=== PATIENT | female | born 1975 | race Caucasian/White ===

== ENCOUNTER 2020-04-04 13:01 | Outpatient (REF) | payer OTHER, SELFPAY ==
--- NOTE | 2020-04-04 13:14 | XR_ITS ---
EXAMINATION: XR LUMBOSACRAL SPINE CLINICAL INFORMATION: Low back pain COMPARISON: None TECHNIQUE: Three views of the lumbosacral spine. FINDINGS: There is normal segmentation with 5 nonrib-bearing vertebrae. There is exaggerated lumbar lordosis on lateral view. There is no lumbar vertebral compression, spondylolisthesis, retrolisthesis. No destructive process or focal lumbar disc narrowing. There are anterior bridging osteophytes L2-L5. There are degenerative disc changes lower thoracic spine with probable vertebral disc fusion at T10-T11. There is an IUD present as well as a stimulator device extending through right sacral foramen. Scattered artifacts overlie the abdomen and pelvis likely buttons or clips from patient's clothing. XR/XR lumbar spine 2-3V IMPRESSION: 1. Exaggerated lumbar lordosis. Multilevel bridging anterior osteophytes. 2. No vertebral compression, spondylolisthesis, or focal disc narrowing. 3. Degenerative disc changes lower thoracic spine.
== END 2020-04-04 13:02 | disposition home or self-care (01) ==
LOC: HO.XRAY 13:01
PROVIDERS: PCP Physician Assistant; Visit Provider Physician Assistant
DX: M54.5 Low back pain (principal)
CPT/HCPCS: 72100

== ENCOUNTER 2020-04-10 15:15 | Emergency (ER) | payer OTHER, SELFPAY ==
[2020-04-10 15:48] VITALS: BP 112/62; BP 126/65; PULSE 93; PULSE 94; RESP 16; TEMP 37.1; O2SAT 96; O2SAT 99; BMI 48.2
--- NOTE | 2020-04-10 16:16 | ED_ITS ---
HPI - Back Pain/Injury General Chief Complaint: Back Pain/Injury Stated Complaint: back pain Time Seen by Provider: 04/10/20 16:13 History of Present Illness HPI Narrative: Present with history of cerebral palsy and chronic back pain and neuropathy complains of flare up of her back pain with pain worse with straightening and bending but comfortable resting in certain positions for past several days, she is taking Motrin without relief as well as a muscle relaxer that she has at home, but pain is not controlled, it does not radiate, no associated urinary symptoms, no fever, no changes to bowel or bladder Related Data Home Medications Medication Instructions Recorded Confirmed acetaminophen 650 mg 650 mg PO Q12H 02/08/20 04/04/20 tablet,extended release atorvastatin 40 mg tablet 40 mg PO DAILY 02/08/20 04/04/20 cholecalciferol (vitamin D3) 50 50 mcg PO DAILY 02/08/20 04/04/20 mcg (2,000 unit) tablet desmopressin 0.1 mg tablet 0.1 mg PO BID 02/08/20 04/04/20 famotidine 40 mg tablet 40 mg PO BEDTIME 02/08/20 04/04/20 levothyroxine 25 mcg tablet 37.5 mcg PO DAILY 02/08/20 04/04/20 mirabegron 25 mg tablet,extended 25 mg PO DAILY 02/08/20 04/04/20 release 24 hr omeprazole 40 mg capsule,delayed 40 mg PO DAILY 02/08/20 04/04/20 release quetiapine 200 mg tablet 200 mg PO DAILY 02/08/20 04/04/20 venlafaxine 75 mg tablet 75 mg PO BID 02/08/20 04/04/20 vitamin B complex 1 tab PO DAILY 02/08/20 04/04/20 zaleplon 5 mg capsule 5 mg PO BEDTIME PRN 02/08/20 04/04/20 Previous Rx's Medication Instructions Recorded quetiapine 50 mg tablet 50 mg PO DAILY #90 tab 01/24/20 docusate sodium 100 mg capsule 100 mg PO BID 30 Days #60 cap 02/08/20 doxepin 75 mg capsule 75 mg PO BID 30 Days #60 cap 02/29/20 furosemide 20 mg tablet 20 mg PO DAILY 7 Days #7 tab 03/06/20 sulfamethoxazole 800 1 tab PO BID 5 Days #10 tab 03/06/20 mg-trimethoprim 160 mg tablet cyclobenzaprine 10 mg tablet 10 mg PO TID PRN 30 Days #90 tab 03/08/20 tramadol 50 mg tablet 50 mg PO BID PRN 30 Days #60 tab 03/16/20 lidocaine 5 % topical cream 1 appl TOPICAL BID 14 Days #30 g 04/04/20 methocarbamol 750 mg tablet 750 mg PO TID PRN 7 Days #21 tab 04/04/20 naproxen 375 mg tablet,delayed 375 mg PO BID PRN 15 Days #30 tab 04/04/20 release pregabalin 200 mg capsule 200 mg PO BID 30 Days #60 cap 04/04/20 oxycodone-acetaminophen [Percocet] 1 tab PO Q6H PRN #14 tab 04/10/20 oxycodone-acetaminophen [Percocet] 1 tab PO Q6H PRN #14 tab 04/10/20 Allergies Allergy/AdvReac Type Severity Reaction Status Date / Time trazodone Allergy Unknown hives Verified 04/04/20 11:41 zolmitriptan [Zomig] Allergy Unknown hives Verified 04/04/20 11:41 zolpidem [Ambien] Allergy Unknown hives Verified 04/04/20 11:41 Review of Systems Review of Systems: Positive for positional back pain worse with movement negatives are no fever no chills no dizziness no confusion no headache no neck pain no chest pain no abdominal pain no numbness no weakness no paresthesias no radiation of pain no burning with urination or frequency of urination no incontinence no changes to bowel or bladder no rashes Yes all other systems are reviewed and are negative [facility] Past Medical History Attestation statement: The following information was validated with the patient. [facility] Narrative: Patient is disabled with cerebral palsy and a long history of episodes of back pain and chronic back pain She does have help at home with [employer] around the clock Medical History (Updated 04/10/20 @ 16:47 by YVES Soriano) Anxiety Cerebral palsy Depression Diabetes insipidus Surgical History No pertinent past surgical history Family History Family History Father No problems noted. Mother No problems noted. Social History Social History Advance Directives: No Advance Directives Information Provided: Yes Physical Exam Vital Signs: Vital Signs: Last Vital Signs Temp 98.5 F 04/10/20 18:04 Pulse 91 04/10/20 18:04 Resp 18 04/10/20 18:04 BP 129/72 04/10/20 18:04 Pulse Ox 97 04/10/20 18:04 Body Mass Index 48.2 General appearance is no acute distress, A&O x3, cooperative Head is normocephalic atraumatic The neck is supple and nontender The chest is clear to auscultation bilaterally with no tenderness to the chest wall, no respiratory distress The abdomen is soft nontender The back had bilateral paraspinal lumbar tenderness with no focal bony tenderness, no CVA tenderness, no rashes, no wounds to the skin no redness no warmth Patient could rest comfortably in a comfortable position but movement was painful Extremity exam was patient could move her legs and arms with good strength and sensation Skin no rash Course Course Course Narrative: Discussed with patient if she is able to take care of herself at home and she says she has continuous [employer] at home and feels confident with some pain relief that she will be able to get to the bathroom and do all her normal activities, she does not live alone Patient felt improved after treatment and was discharged Discharge Plan Discharge Clinical Impression: Back pain Qualifiers: Back pain location: low back pain Chronicity: acute Back pain laterality: bilateral Sciatica presence: without sciatica Qualified Code(s): M54.5 - Low back pain Patient Disposition: Home, Self-Care Additional Instructions: Follow with primary care doctor for physical therapy and further evaluation Return any time any worse condition or concerns Prescriptions: New oxycodone-acetaminophen [Percocet] 5-325 mg tablet 1 tab PO Q6H PRN (Reason: pain) Qty: 14 RF: 0 oxycodone-acetaminophen [Percocet] 5-325 mg tablet 1 tab PO Q6H PRN (Reason: pain) Qty: 14 RF: 0 No Action quetiapine 50 mg tablet 50 mg PO DAILY Qty: 90 RF: 1 doxepin 75 mg capsule 75 mg PO BID 30 Days Qty: 60 RF: 3 furosemide 20 mg tablet 20 mg PO DAILY 7 Days Qty: 7 RF: 0 sulfamethoxazole-trimethoprim [Bactrim DS] 800-160 mg tablet 1 tab PO BID 5 Days Qty: 10 RF: 0 cyclobenzaprine 10 mg tablet 10 mg PO TID PRN (Reason: muscle spasm) 30 Days Qty: 90 RF: 3 tramadol 50 mg tablet 50 mg PO BID PRN (Reason: pain) 30 Days Qty: 60 RF: 3 cholecalciferol (vitamin D3) [Vitamin D3] 50 mcg (2,000 unit) tablet 50 mcg PO DAILY RF: 0 quetiapine 200 mg tablet 200 mg PO DAILY RF: 0 acetaminophen [Mapap Arthritis Pain] 650 mg tablet extended release 650 mg PO Q12H RF: 0 venlafaxine 75 mg tablet 75 mg PO BID RF: 0 omeprazole 40 mg capsule,delayed release(DR/EC) 40 mg PO DAILY RF: 0 levothyroxine 25 mcg tablet 37.5 mcg PO DAILY RF: 0 atorvastatin 40 mg tablet 40 mg PO DAILY RF: 0 desmopressin 0.1 mg tablet 0.1 mg PO BID RF: 0 Myrbetriq 25 mg tablet extended release 24 hr 25 mg PO DAILY RF: 0 zaleplon 5 mg capsule 5 mg PO BEDTIME PRNRF: 0 vitamin B complex [B Complex-Vitamin B12] Tablet 1 tab PO DAILY RF: 0 famotidine 40 mg tablet 40 mg PO BEDTIME RF: 0 docusate sodium [Colace] 100 mg capsule 100 mg PO BID 30 Days Qty: 60 RF: 6 lidocaine 5 % cream 1 appl topical BID 14 Days Qty: 30 RF: 0 pregabalin 200 mg capsule 200 mg PO BID 30 Days Qty: 60 RF: 1 methocarbamol 750 mg tablet 750 mg PO TID PRN (Reason: pain (scale score 7-10)) 7 Days Qty: 21 RF: 0 naproxen [EC-Naproxen] 375 mg tablet,delayed release (DR/EC) 375 mg PO BID PRN (Reason: pain) 15 Days Qty: 30 RF: 0
[2020-04-10] MEDS: oxyCODONE HCl Immed Release 5 MG TABLET 10 MG PO (16:25)
[2020-04-10] MEDS: Ketorolac Tromethamine 30 MG/ML VIAL IM (16:25)
[2020-04-10] MEDS: HYDROmorphone HCl 0.5 MG/0.5 ML SYRINGE 0.25 MG IM (17:23)
[2020-04-10 18:04] VITALS: BP 129/72; PULSE 91; RESP 18; TEMP 36.9; O2SAT 97
--- NOTE | 2020-04-10 18:57 | PC.NURSE ---
Report received. PT is resting quietly in bed, no apparent distress. Ready for discharge, waiting for transport.
== END 2020-04-10 20:00 | disposition home or self-care (01) ==
PROVIDERS: Emergency Provider Emergency Medicine
DX: M54.5 Low back pain (principal); G80.9 Cerebral palsy, unspecified; E23.2 Diabetes insipidus
CPT/HCPCS: 96372; 99283; 99284; J1170; J1885

== ENCOUNTER → 2020-04-28 12:50 | Outpatient (BNVA) | payer OTHER, SELFPAY | PROVIDERS: PCP Physician Assistant; Visit Provider Nurse Practitioner Family | DX: G80.9 Cerebral palsy, unspecified (principal); R25.2 Cramp and spasm | CPT/HCPCS: 99202 ==

== ENCOUNTER 2020-10-11 11:12 | Outpatient (REF) | payer OTHER, SELFPAY ==
[2020-10-11 12:41] LABS: Estimated Average Glucose 108 mg/dL; Hemoglobin A1c % 5.4 %
[2020-10-11 13:24] LABS: Alanine Aminotransferase 19 U/L (0-31); Albumin Level 4.6 g/dL (3.5-5.0); Alkaline Phosphatase 103 U/L (39-117); Anion Gap 16 (12-20); Aspartate Amino Transferase 18 U/L (5-31); Bilirubin Total 0.3 mg/dL (0.0-1.0); Blood Urea Nitrogen 15 mg/dL (9-16); Carbon Dioxide 25 mmol/L (22-29); Chloride 104 mmol/L (96-108); Cholesterol 131 mg/dL; Estimated Glomerular Filt Rate > 60; Glucose Fasting 100 mg/dL (60-99); HDL Cholesterol 52 mg/dL; LDL Cholesterol Calculated 50 mg/dl; Potassium 4.1 mmol/L (3.3-5.1); Sodium 141 mmol/L (135-145); Total Protein 7.3 g/dL (6.5-8.0); Triglycerides 147 mg/dL
[2020-10-11 13:30] LABS: Calcium 10.4 mg/dL (8.4-10.2)
[2020-10-11 13:39] LABS: TSH reflex Free T4 0.91 uIU/mL (0.32-4.0)
== END 2020-10-11 11:13 | disposition home or self-care (01) ==
LOC: HO.LAB 11:12
PROVIDERS: PCP Physician Assistant; Visit Provider Physician Assistant
DX: Z13.1 Encounter for screening for diabetes mellitus (principal); E78.2 Mixed hyperlipidemia
CPT/HCPCS: 36415; 80053; 80061; 83036; 84443

== ENCOUNTER 2021-06-27 14:50 | Outpatient (REF) | payer OTHER, SELFPAY ==
[2021-06-27 15:05] LABS: MANUAL DIFF FLAG NO
--- NOTE | 2021-06-27 15:11 | ECG_ITS ---
Test Reason : CHEST PAIN Blood Pressure : / mmHG Vent. Rate : 086 BPM Atrial Rate : 086 BPM P-R Int : 134 ms QRS Dur : 078 ms QT Int : 352 ms P-R-T Axes : 039 013 002 degrees QTc Int : 421 ms Normal sinus rhythm Minimal voltage criteria for LVH, may be normal variant ( R in aVL ) Nonspecific T wave abnormality Abnormal ECG No previous ECGs available Referred By: Gay Patricio Electronically Signed By:MARLA SUMNER
[2021-06-27 15:38] LABS: Basophils Absolute Auto 0.1 X10*3/uL (0.0-0.2); Basophils Percent Auto 1.2 % (0-2); Eosinophils Absolute Auto 0.1 X10*3/uL (0.0-0.4); Eosinophils Percent Auto 1.6 % (0-4); Hematocrit 36.5 % (37.0-47.0); Hemoglobin 11.5 g/dl (12.0-16.0); Imm Gran Abs Auto 0.08 X10*3/uL (0.00-0.03); Imm Gran Pct Auto 1.2 % (0.0-0.4); Lymphocytes Absolute Auto 2.2 X10*3/uL (1.2-4.9); Lymphocytes Percent Auto 32.9 % (20-40); Mean Corpuscular HGB Conc 31.5 g/dl (31.0-35.0); Mean Corpuscular Hemoglobin 30.8 pg (27.0-33.0); Mean Corpuscular Volume 97.9 fL (80.0-98.0); Mean Platelet Volume 10.2 fL (9.4-12.3); Monocytes Absolute Auto 0.6 X10*3/uL (0.1-1.2); Monocytes Percent Auto 9.1 % (2-11); Neutrophils Absolute Auto 3.7 x10*3/uL (2.0-8.3); Platelet Count 390 X10*3/uL (160-400); Red Blood Count 3.73 X10*6/uL (4.20-5.50); Red Cell Distribution Width 12.8 % (11.0-16.0); White Blood Count 6.8 X10*3/uL (4.8-10.8)
[2021-06-27 16:28] LABS: Alanine Aminotransferase 32 U/L (0-31); Albumin Level 4.2 g/dL (3.5-5.0); Alkaline Phosphatase 223 U/L (39-117); Anion Gap 18 (12-20); Aspartate Amino Transferase 29 U/L (5-31); Bilirubin Total 0.2 mg/dL (0.0-1.0); Blood Urea Nitrogen 16 mg/dL (9-16); Calcium 9.8 mg/dL (8.4-10.2); Carbon Dioxide 20 mmol/L (22-29); Chloride 106 mmol/L (96-108); Estimated Glomerular Filt Rate > 60; Glucose Random 90 mg/dL (60-115); Lipase 15 U/L (8-78); Potassium 4.6 mmol/L (3.3-5.1); Sodium 139 mmol/L (135-145); Total Protein 7.7 g/dL (6.5-8.0)
[2021-06-27 16:32] LABS: TSH reflex Free T4 1.03 uIU/mL (0.32-4.0); Vitamin D 25-OH Total 82.2 ng/mL (>30)
[2021-06-27 16:47] LABS: Folate > 20.0 ng/mL (> or = 4.0); Vitamin B12 571 pg/mL (200-900)
== END 2021-06-27 14:51 | disposition home or self-care (01) ==
LOC: HO.LAB 14:50
PROVIDERS: PCP Physician Assistant; Visit Provider Nurse Practitioner Family
DX: R07.9 Chest pain, unspecified (principal); R10.13 Epigastric pain; R19.7 Diarrhea, unspecified
CPT/HCPCS: 36415; 80053; 82306; 82607; 82746; 83690; 84443; 85025; 93005

== ENCOUNTER 2021-07-02 11:17 | Outpatient (REF) | payer OTHER, SELFPAY ==
[2021-07-02 12:42] LABS: HBc Num1 0.16 S/CO (0.00-0.79); Hepatitis B Core Antibody Nonreactive (Nonreactive); Hepatitis B Surface Antigen Negative (Negative)
[2021-07-02 12:49] LABS: ~HepC Num1 0.11 S/CO (0.00-0.79); ~Hepatitis B Surface Antibody NONREACTIVE (Nonreactive); ~Hepatitis C Antibody Nonreactive (Nonreactive)
[2021-07-04 09:03] LABS: Hepatitis A Antibody IgM 0.16 Index (0-0.79); ~Hepatitis A Antibody IgM Nonreactive (Nonreactive)
== END 2021-07-02 11:18 | disposition home or self-care (01) ==
LOC: HO.LAB 11:17
PROVIDERS: PCP Physician Assistant; Visit Provider Nurse Practitioner Family
DX: R74.8 Abnormal levels of other serum enzymes (principal)
CPT/HCPCS: 36415; 86704; 86706; 86709; 86803; 87340

== ENCOUNTER 2021-07-10 13:30 | Outpatient (REF) | payer OTHER, SELFPAY ==
[2021-07-10 14:30] LABS: Leukocytes Stool Qualitative NEGATIVE (NEGATIVE)
== END 2021-07-10 13:31 | disposition home or self-care (01) ==
LOC: HO.LNP 13:30
PROVIDERS: Visit Provider Nurse Practitioner Family
DX: R19.7 Diarrhea, unspecified (principal)
CPT/HCPCS: 87045; 87046; 87493; 89055

== ENCOUNTER 2021-08-16 12:46 | Outpatient (REF) | payer OTHER, SELFPAY ==
[2021-08-17 06:47] LABS: CT PCR NOT DETECTED (Not Detect.); NG PCR NOT DETECTED (Not Detect.)
== END 2021-08-16 12:47 | disposition home or self-care (01) ==
LOC: HO.LAB 12:46
PROVIDERS: PCP Physician Assistant; Visit Provider Obstetrics & Gynecology
DX: Z11.3 Encounter for screening for infections with a predominantly sexual mode of transmission (principal); N93.9 Abnormal uterine and vaginal bleeding, unspecified
CPT/HCPCS: 87491; 87591; 99212

== ENCOUNTER 2021-08-22 14:35 | Outpatient (REF) | payer OTHER, SELFPAY ==
--- NOTE | ~2021-08-22 | MM_ITS ---
EXAMINATION: MM SCREENING DIGITAL BREAST TOMOSYNTHESIS, BILATERAL CLINICAL INFORMATION: Screening. Asymptomatic. The lifetime risk of breast cancer based on the Tyrer-Cuzick Model is 10.5%. COMPARISON: Mammography: None TECHNIQUE: Digital breast tomosynthesis is performed in both the craniocaudal and mediolateral oblique views along with computer-aided detection (CAD). Synthesized 2D images are generated from the tomosynthesis. Additional left exaggerated craniocaudal view performed. FINDINGS: The breasts are heterogeneously dense, which may obscure small masses (ACR BI-RADS breast composition Category c). There are no significant masses, abnormal calcifications, or other abnormalities. MM/MM tomosynthesis screening BI IMPRESSION: No mammographic evidence of malignancy. ASSESSMENT: BI-RADS 1: Negative RECOMMENDATION: Routine annual mammography screening. This patient's information was entered into a reminder system with a target due date for their next mammogram.
[2021-08-22 16:08] LABS: Hematocrit 32.6 % (37.0-47.0); Hemoglobin 10.3 g/dl (12.0-16.0); Mean Corpuscular HGB Conc 31.6 g/dl (31.0-35.0); Mean Corpuscular Hemoglobin 29.9 pg (27.0-33.0); Mean Corpuscular Volume 94.5 fL (80.0-98.0); Platelet Count 338 X10*3/uL (160-400); Red Blood Count 3.45 X10*6/uL (4.20-5.50); White Blood Count 7.2 X10*3/uL (4.8-10.8)
[2021-08-22 16:48] LABS: HCG Quantitative < 2 mIU/mL; TSH reflex Free T4 0.97 uIU/mL (0.32-4.0)
== END 2021-08-22 14:36 | disposition home or self-care (01) ==
LOC: HO.MAMMO 14:35
PROVIDERS: PCP Physician Assistant; Visit Provider Obstetrics & Gynecology
DX: Z12.31 Encounter for screening mammogram for malignant neoplasm of breast (principal); N93.9 Abnormal uterine and vaginal bleeding, unspecified
CPT/HCPCS: 36415; 77063; 77067; 84443; 84702; 85027

== ENCOUNTER → 2021-09-11 10:43 | Outpatient (BNVA) | payer OTHER, SELFPAY | PROVIDERS: PCP Physician Assistant; Visit Provider Nurse Practitioner Family | DX: M53.3 Sacrococcygeal disorders, not elsewhere classified (principal); M54.50 Low back pain, unspecified; G80.9 Cerebral palsy, unspecified; R25.2 Cramp and spasm; M41.45 Neuromuscular scoliosis, thoracolumbar region | CPT/HCPCS: 99212 ==

== ENCOUNTER 2021-09-17 12:28 | Outpatient (REF) | payer OTHER, SELFPAY ==
--- NOTE | ~2021-09-17 | US_ITS ---
EXAMINATION: US PELVIS CLINICAL INFORMATION: Abnormal uterine and vaginal bleeding COMPARISON: None TECHNIQUE: Transverse abdominal pelvic ultrasound. Patient declined transvaginal exam. FINDINGS: Uterus measures 7.5 x 3.3 x 3.9 cm. There is an IUD in the uterus in satisfactory position. The endometrium is not well visualized secondary to the IUD but does not appear thickened. No focal uterine lesion is seen. The right ovary is normal in the measures 2.1 x 1.3 x 2 cm. The left ovary is not seen. No fluid is seen in the pelvis. US/US pelvic complete IMPRESSION: IUD in the uterus in satisfactory position. Left ovary not seen.
--- NOTE | ~2021-09-17 | XR_ITS ---
EXAMINATION: XR PELVIS CLINICAL INFORMATION: Sacrococcygeal disorder, not elsewhere classified COMPARISON: None TECHNIQUE: AP view of the pelvis. FINDINGS: There is severe arthritis at both hip joints, left greater than right. There is heterotopic bone formation adjacent to the left greater trochanter. And proximal shaft questionable for changes related to old trauma. Bones of the pelvis are normal. There is a stimulator seen projecting over the right sacrum. There is an IUD in the pelvis. XR/XR pelvis 1-2V IMPRESSION: Bilateral hip arthritis, left greater than right. Question old trauma to the left proximal femur.
== END 2021-09-17 12:29 | disposition home or self-care (01) ==
LOC: HO.XRAY 12:28
PROVIDERS: PCP Physician Assistant; Visit Provider Nurse Practitioner Family
DX: M53.3 Sacrococcygeal disorders, not elsewhere classified (principal); N93.9 Abnormal uterine and vaginal bleeding, unspecified
CPT/HCPCS: 72170; 76856

== ENCOUNTER 2021-09-19 12:44 | Outpatient (REF) | payer OTHER, SELFPAY ==
--- NOTE | ~2021-09-19 | CT_ITS ---
EXAMINATION: CT LUMBAR SPINE WITHOUT CONTRAST CLINICAL INFORMATION: Low back pain. COMPARISON: None. TECHNIQUE: 2 mm thin axial and reformatted 2 mm thin sagittal and coronal images of lumbar spine were obtained. This CT examination was performed using dose optimization techniques as appropriate, variously including the following: *Automated exposure control *Adjustment of mA and/or kV according to patient size (this includes techniques or standardized protocols for targeted exams where dose is matched to indication/reason for exam; i.e. extremities or head) *Use of iterative reconstruction technique DLP 635 mGy-cm FINDINGS: On sagittal reconstructed images there is maintained lumbar lordosis. The vertebral heights, alignment and disc heights are normal. There are large bridging osteophytes throughout the ventral dorsal spine. There is no evidence of disc bulge, herniation or spinal stenosis at any of the disc levels. The neural foramina are patent bilaterally. There is small sclerotic density seen in the left iliac bone, likely bone island, axial image 81/4. There is transsacral electrode positioned in the presacral space/mid pelvis. The paravertebral soft tissues are normal. The SI joints are symmetrical and normal. CT/CT lumbar spine wo con IMPRESSION: Large bridging ventral osteophytes throughout lumbar spine. No disc bulge, herniation or spinal canal stenosis. No aggressive lytic process seen. Transsacral inserted electrode is seen in the presacral pelvis.
== END 2021-09-19 12:45 | disposition home or self-care (01) ==
LOC: HO.CT 12:44
PROVIDERS: PCP Physician Assistant; Visit Provider Nurse Practitioner Family
DX: M54.50 Low back pain, unspecified (principal); M41.45 Neuromuscular scoliosis, thoracolumbar region
CPT/HCPCS: 72131

== ENCOUNTER → 2021-10-02 12:49 | Outpatient (BNVA) | payer OTHER, SELFPAY | PROVIDERS: PCP Physician Assistant; Visit Provider Obstetrics & Gynecology | DX: N93.9 Abnormal uterine and vaginal bleeding, unspecified (principal); Z97.5 Presence of (intrauterine) contraceptive device | CPT/HCPCS: 99212 ==

== ENCOUNTER → 2021-10-04 14:19 | Outpatient (BNVA) | payer OTHER, SELFPAY | PROVIDERS: PCP Physician Assistant; Visit Provider Physician Assistant | DX: K21.9 Gastro-esophageal reflux disease without esophagitis (principal); K58.1 Irritable bowel syndrome with constipation; K59.04 Chronic idiopathic constipation; R68.81 Early satiety; R10.13 Epigastric pain; G80.9 Cerebral palsy, unspecified; Z79.899 Other long term (current) drug therapy | CPT/HCPCS: 99202; 99212 ==

== ENCOUNTER → 2021-11-26 09:25 | Outpatient (REF) | payer OTHER, SELFPAY ==
--- NOTE | ~2021-11-26 | NM_ITS ---
Lexiscan Myocardial perfusion study Indication: Chest pain, assess for coronary disease ischemia Technique: The patient was brought in for a Lexiscan perfusion study on 11/26/2021 and was injected 0.4 mg of Lexiscan intravenously. Within a minute of this injection 35 mCi of sestamibi was given intravenously. Images were obtained using the SPECT gamma camera interlaced with the gating device. Images were obtained in supine position. Resting perfusion study was performed on 11/28/2021. Patient was administered 35 mCi of sestamibi intravenously at rest. Images were then obtained in supine position. Total DLP 140mGy-cm. Images were processed with the software and compared side to side in short axis, horizontal long axis and vertical long axis views. Findings: Raw acquisition reviewed. The stress perfusion study showed diminished tracer uptake in the basal to mid septum. With CT attenuation correction, there is reduced tracer uptake overall. The gated study shows normal LV systolic function with calculated LVEF of 72%. LV cavity is normal in size. The gated study shows reduced septal thickening. Resting study shows no significant perfusion abnormality. Gating at rest reveals normal wall motion with ejection fraction at 63%. The findings are consistent with reversible septal defect in the basal to mid portions. NM/NM cardiolite stress test Impression: 1. Myocardial perfusion imaging study shows reversible septal defect in the basal to mid portions, could represent artifact or ischemia. 2. Gated LVEF is 72% during stress and 63% during rest. 3. Transient ischemic dilatation not present. EKG component of the test reported separately.
--- NOTE | 2021-11-26 09:28 | CA_ITS ---
Acquisition Time: 2021-11-26 09:38:31 Total Exercise Time: 00:02:00 Test Indications: CP Medications: SEE CHART Protocol: LEXISCAN Max HR: 117 BPM 68% of Pred: 172 BPM Max BP: 136/086 mmHG Max Work Load: 1.0 METS Pharmacological stress test with Lexiscan injection, while sitting and moving right arm, without anginal symptoms, without arrythmia, with normotensive response to injection, with nondiagnostic EKG for ischemia.In recovery she reported lightheadedness that was treated with Aminophylline 75 mg IVP to reverse Lexiscan with resolution of symptom. Nuclear images pending.Test reviewed with Dr Lozano. Referred By: Gay Patricio Overread By: TISHA ESPINO
== END ==
LOC: HO.CARD 09:25
PROVIDERS: Visit Provider Nurse Practitioner Family
DX: R07.9 Chest pain, unspecified (principal)
CPT/HCPCS: 78452; 93017; A9500; J0280; J2785

== ENCOUNTER → 2022-01-29 08:04 | Outpatient (REF) | payer OTHER, SELFPAY ==
--- NOTE | ~2022-01-29 | NM_ITS ---
EXAMINATION: [place] RADIONUCLIDE SOLID FOOD GASTRIC EMPTYING 4-HOUR STUDY CLINICAL INFORMATION: Early satiety. COMPARISON: No previous gastric emptying study is available for comparison. TECHNIQUE: A standard meal consisting of 4 oz of Egg Beaters brand tagged with 784 microcuries Tc-99m Sulfur Colloid, 8 oz water and 2 slices of toast with jelly was administered orally to the patient. Images were obtained using a dual head gamma camera in the anterior and posterior projections over of the stomach immediately post ingestion and at hourly intervals up to 4 hours post ingestion. The anterior and posterior counts at each time interval were averaged using the geometric mean and expressed as percentage of the immediate post ingestion counts. FINDINGS: There is good visualization of activity in the stomach immediately post ingestion. As the study progresses, there is fair clearance of activity from the stomach and visualization of progressively increasing small bowel activity. However, at the end of the study there is mild abnormal retention of activity in the stomach at 4 hours. 1 hour 78% (normal 37%-90%) 2 hours 68% (normal 30%-60%) 3 hours 31% 4 hours 13% (normal 0%-10%) NM/AZ gastric emptying study IMPRESSION: Abnormal study. There is very mild abnormal retention of solid food in the stomach at 4 hours.
== END ==
LOC: HO.NUCMED 08:04
PROVIDERS: Visit Provider Physician Assistant
DX: K21.9 Gastro-esophageal reflux disease without esophagitis (principal); R68.81 Early satiety
CPT/HCPCS: 78264; A9541

== ENCOUNTER → 2022-02-06 13:31 | Outpatient (BNVA) | payer OTHER, SELFPAY | PROVIDERS: PCP Physician Assistant; Visit Provider Physician Assistant | DX: K21.9 Gastro-esophageal reflux disease without esophagitis (principal); K58.9 Irritable bowel syndrome, unspecified; R68.81 Early satiety | CPT/HCPCS: Q3014 ==

== ENCOUNTER → 2022-02-14 14:11 | Outpatient (BNVA) | payer OTHER, SELFPAY | PROVIDERS: PCP Physician Assistant; Referring Provider Nurse Practitioner Family; Visit Provider Internal Medicine Cardiovascular Disease | DX: R07.9 Chest pain, unspecified (principal); R94.39 Abnormal result of other cardiovascular function study | CPT/HCPCS: 99202 ==

== ENCOUNTER 2022-08-27 12:46 | Outpatient (REF) | payer OTHER, SELFPAY ==
--- NOTE | ~2022-08-27 | MM_ITS ---
EXAMINATION: MM SCREENING DIGITAL BREAST TOMOSYNTHESIS, BILATERAL CLINICAL INFORMATION: Screening. Asymptomatic. The lifetime risk of breast cancer based on the Tyrer-Cuzick Model is 10%. COMPARISON: Mammography: 08/22/2021; outside mammography 06/10/2019, 06/13/2015 ([facility]) TECHNIQUE: Digital breast tomosynthesis is performed in both the craniocaudal and mediolateral oblique views along with computer-aided detection (CAD). Synthesized 2D images are generated from the tomosynthesis. Additional exaggerated right CC and additional left CC view are provided. Technologist notes technically challenging exam, patient in wheelchair. 2 technologists needed for positioning. Exam tailored to patient capabilities. FINDINGS: The breasts are heterogeneously dense, which may obscure small masses (ACR BI-RADS breast composition Category c). Breast tissue composition borders on average fibroglandular. There are no significant masses, abnormal calcifications, or other abnormalities. No architectural abnormality or developing density or significant change from prior studies. The skin contours are smooth. There is limited imaging of the axilla which may be correlated with routine clinical exam. MM/MM tomosynthesis screening BI IMPRESSION: -No mammographic evidence of malignancy. -Patient study limitations, technically challenging exam. ASSESSMENT: BI-RADS 2: Benign RECOMMENDATION: -Routine annual mammography screening. -Limited imaging of the axilla which may be correlated with routine clinical exam. This patient's information was entered into a reminder system with a target due date for their next mammogram.
== END 2022-08-27 12:47 | disposition home or self-care (01) ==
LOC: HO.MAMMO 12:46
PROVIDERS: PCP Physician Assistant; Visit Provider Nurse Practitioner Family
DX: Z12.31 Encounter for screening mammogram for malignant neoplasm of breast (principal)
CPT/HCPCS: 77063; 77067

== ENCOUNTER → 2022-09-18 12:48 | Outpatient (BNVA) | payer OTHER, SELFPAY | PROVIDERS: PCP Nurse Practitioner Family; Referring Provider Nurse Practitioner Family; Visit Provider Internal Medicine Cardiovascular Disease | DX: R94.39 Abnormal result of other cardiovascular function study (principal); G80.9 Cerebral palsy, unspecified | CPT/HCPCS: 93005; 99212 ==

== ENCOUNTER → 2022-09-23 12:31 | Outpatient (BNVA) | payer OTHER, SELFPAY | PROVIDERS: Visit Provider Physician Assistant | DX: K21.9 Gastro-esophageal reflux disease without esophagitis (principal); K58.9 Irritable bowel syndrome, unspecified; R10.13 Epigastric pain | CPT/HCPCS: 99212 ==

== ENCOUNTER 2023-02-11 14:09 | Outpatient (AMB) | payer OTHER, SELFPAY ==
[2023-02-11 14:18] VITALS: BP 88/48; PULSE 67; O2SAT 95
--- NOTE | 2023-02-11 14:18 | A.OFFPC_ITS ---
Vital Signs 02/11/23 14:18 Height 4 ft 8 in BP 88/48 L Blood Pressure Location Lt brachial Position Sitting Pulse 67 Pulse Source Pulse Oximeter Pulse Oximetry (%) 95 Oxygen Delivery Method Room Air Intake Visit Reasons: Annual PE Intake Note: Patient is here today for a physical. Also, pt seen at [facility] ED on 02/07/23 for kidney stones. Sales Professional Bilingual Required: No Accompanied by: SILK WINDING MACHINE OPERATOR-Emmie Allergies trazodone Allergy (Unknown, Verified 02/11/23 14:51) hives zolmitriptan [Zomig] Allergy (Unknown, Verified 02/11/23 14:51) hives zolpidem [Ambien] Allergy (Unknown, Verified 02/11/23 14:51) hives Medication List - Last Reconciled 02/11/23 by Deonte Carmona PA-C acetaminophen ER (Mapap Arthritis Pain) 1,300 mg (2 x 650 mg) PO Q12H PRN 90 days atorvastatin 40 mg PO DAILY bisacodyl (Laxative (bisacodyl)) mg PO bisacodyl 10 mg RI DAILY PRN tughxzfewg-qmlriutozpoiq-rsen 50-325-40 mg 1 tab PO Q6H PRN cefpodoxime 200 mg PO BID cholecalciferol (vitamin D3) (Vitamin D3) 50 mcg PO DAILY [disposable bedpads As directed] disposable gloves (Biobrane Gloves Large) As directed disposable gloves As directed docusate sodium (Colace) 100 mg PO BID 30 days doxepin 75 mg PO BID famotidine 40 mg PO BEDTIME ferrous sulfate 325 mg PO DAILY Gait belt As directed incontinence pad, liner, disp As directed [incontinence wipes As directed] [incontinence wipes As directed] levothyroxine 75 mcg PO 6XW lidocaine 5% (Lidoderm) 1 patch topical DAILY meclizine 25 mg PO DAILY PRN 14 days methylcellulose (laxative) (Fiber Therapy (methylcellulose)) 500 mg PO TID mirabegron ER (Myrbetriq) 25 mg PO DAILY miscellaneous medical supply 1 ea miscellaneous BID 90 days omeprazole 40 mg PO DAILY pregabalin 200 mg PO BID 30 days quetiapine 200 mg PO DAILY quetiapine 50 mg PO DAILY tizanidine 4 mg PO BID 90 days tramadol 50 mg PO BID 30 days venlafaxine ER 150 mg PO DAILY 90 days vitamin B complex (B Complex-Vitamin B12 tablet) 1 tab PO DAILY zaleplon 5 mg PO BEDTIME PRN 30 days Tobacco use date assessed: 07/03/22 Dental Screening Dental Screen Date: 02/11/23 Did you have a dental visit in the last 12 months?: Yes Did you have a dental problem in the last 6 months where you did not have access to dental care?: No Was dental information given to patient?: Patient has dentist HPI Annual PE HPI Details Patient is a 47 year-old female here today for a routine annual physical. . Puneet tete has an extensive past medical history including cerebral palsy, diabetes insipidus, migraines, insomnia, IBS, depression, lumbr spine pain, HLD, , Nephrolithiasis. She recently was admitted to [facility] for acute pyelonephritis secondary to a nephrostomy tube placed due to her nephrolithiasis. Her nephrostomy tube will be removed today urinary stent will be placed in near future. She does inform me that her does move press in for her diabetes insipidus has been held due to her current nephrolithiasis treatment. Noted blood pressure low today in office. She does report polydipsia polyuria likely due to her DI CHRONIC MEDICAL CONDITIONS--> ? .. ? 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 Patient currently gets 48 hours of SILK WINDING MACHINE OPERATOR services as her cerebral palsy is advanced and has trouble with ambulation and doing ADLs at home. Patient currently uses tramadol and? tizanidine treatment her pains and spasticity secondary to cerebral palsy.? She reports this current regime does manage her pain well. SILK WINDING MACHINE OPERATOR family asking for a paper Rx for a step stool to help her transfer into bed. She does report having a recent fall trying to get into bed. ? ... ? .. ? Hypothyroidism : Is followed by endocrinology and had a recent increase in her levothyroxine to 75 mcg.? Most recent TSH stable2. ?Also patient does have diabetes insipidus to which she takes desmopressin and has been stable. ? .. ? Depression: Patient does see a therapist in [facility], though has lost follow-up with her med provider and gets all of her mental health medications through her PCP. ? .. ? IBS-constipation type: Patient is chronically using senna due to bouts of constipation due to her IBS.? She has tried senna, Colace, Metamucil, Linzess, Medical magnesia, lactulose all without much relief of her constipation. Colon cancer screen: Does report getting a colonoscopy at an outside facility. Will try to get records. Vaccines: Up-to-date with COVID vaccine, tetanus vaccine, pneumonia vaccine, need Flu vaccine. [facility] Medical History Depression Anxiety Diabetes insipidus Cerebral palsy Surgical History History of surgery on lower extremity Hx of appendectomy Family History Father No problems noted. Mother No problems noted. Social History Housing: Apartment Alcohol intake: never Patient Tobacco Use Status: Never used Tobacco e-Cigarette/Vaping Use: Never Used Second Hand Smoke Exposure: No service: No Current occupational status: disabled Current occupational exposures/hazards: No Cognitive needs: Yes (wheel chair ) Hearing needs: No Vision needs: Yes Questionnaire Thrive Questionnaire Date Thrive assessed: 07/03/22 ARMANDO-7 AMB Questionnaire ARMANDO-7 Date ARMANDO - 7 assessed: 07/03/22 Source: Developed by Drs. Clayton Meneses, Isabel Ponce, Shailesh Bolanos and colleagues, with an educational josé manuel from [employer]. Review of Systems Const Denies body aches, Denies chills, Denies excessive sweating, Denies fatigue, Denies fever(s) and Denies headache(s) Eyes Denies blurry vision ENT Denies dysphagia, Denies vertigo, Denies dizziness, Denies headache(s), Denies hearing loss and Denies tinnitus Card Denies chest pain, Denies chest pain with activity, Denies syncope, Denies irregular heart rhythm and Denies dyspnea Resp Denies chest congestion, Denies cough, Denies hemoptysis, Denies dyspnea and Denies wheezing GI Denies abdominal pain, Denies melena, Denies hematochezia, Denies coffee ground emesis, Denies dysphagia, Denies diarrhea, Denies nausea and Denies vomiting Denies urinary frequency, Denies dysuria, Denies urinary hesitancy and Denies urinary urgency Musc Denies arthralgias, Denies limited range of motion, Denies muscle cramps and Denies muscle weakness Skin/Breast Denies rash and Denies skin ulcer Neuro Denies Abnormal speech present, Denies confusion, Denies vertigo, Denies dizziness, Denies syncope, Denies headache(s), Denies memory loss and Denies seizure-like activity Psych Denies anxiety, Denies confusion, Denies depression, Denies memory loss, Denies panic attacks and Denies paranoia Endo Denies excessive sweating, Denies fatigue, Denies flushing, Denies polydipsia and Denies polyuria Aller/Immun Denies wheezing Physical exam (Primary Care) Vital Signs: Last Vital Signs Pulse 67 02/11/23 14:18 BP 88/48 L 02/11/23 14:18 Pulse Ox 95 02/11/23 14:18 Oxygen Delivery Method Room Air 02/11/23 14:18 Tobacco/Smoking Status: Tobacco use Status Tobacco use date assessed 07/03/22 02/11/23 14:21 Patient Tobacco Use Status Never used Tobacco 02/11/23 14:21 e-Cigarette/Vaping Use Never Used 02/11/23 14:21 Thrive Assessment: Date of Thrive Assessment Date Thrive assessed 07/03/22 02/11/23 14:21 Const General: cooperative, comfortable, no acute distress, alert and awake; No confusion Orientation/consciousness: oriented to person, oriented to place, patient o riented x3 and No confusion HENMT Head: Yes normocephalic Ears: external ears normal and TM's normal bilaterally Face and sinus: No sinus tenderness Mouth: Normal oral and palatal mucosa present and tongue normal Teeth and gingiva: dentition normal and gingiva normal Throat: Yes posterior oropharynx normal, Yes tonsils normal and Yes uvula midline Eyes Conjunctivae: conjunctivae normal Sclerae: sclerae normal Pupils: Equal, round and reactive pupils present EOM: EOMs intact bilaterally Direct Ophthalmoscopy: No no photophobia Neck Neck: Yes no lymphadenopathy, No tender and Yes no JVD Thyroid: Thyroid normal Carotids: no bruits Chest Chest palpation & inspection: no tenderness Resp Effort & Inspection: normal respiratory effort, no audible wheezes, not labored and no stridor Auscultation: no crackles, no rales, no rhonchi and no wheezes Cardio Jugular venous distension: no JVD Rate: regular rate, not bradycardic and not tachycardic Rhythm: regular rhythm Bruits: no carotid bruits Peripheral pulses: Peripheral pulses 2+ throughout GI Inspection: Yes normal to inspection, No abdominal wall ecchymosis and No visible herniation Palpation (GI): Soft to palpation, nontender, no guarding, not rigid and No hepatosplenomegaly present Auscultation: normoactive bowel sounds General: Yes no CVA tenderness Back/Spine/Pelvis Back: no CVA tenderness and No back tenderness Cervical Spine: cervical ROM normal Thoracic/Lumbar Spine: thoracic and lumbar spine normal to inspection, straight leg raise negative bilaterally, No thoraco-lumbar ROM limited and No lumbar spinal tenderness Skin Lesions: no lesions Rashes: no rashes Wounds: no wounds Neuro General: oriented to person, oriented to place, patient oriented x3, CN's II-XI intact bilaterally and No confusion Cranial nerves: Yes Equal, round and reactive pupils present and Yes Normal accommodation reflex present Cognition (Neuro): normal cognition Speech: No Abnormal speech present Gait exam (Neuro): Normal gait present Motor exam (neuro): 5/5 motor strength present throughout Extrem Right upper extremity: full ROM; no cyanosis Left upper extremity: full ROM; no cyanosis Right lower extremity: no edema Left lower extremity: no edema Psych Appearance: grossly normal Mental Status: mental status grossly normal Affect: normal affect Attitude: cooperative Thought process: Normal thought process present Assessment and Plan Assessment & Plan (1) Cerebral palsy: Comment: W/C Code(s): G80.9 - Cerebral palsy, unspecified Qualifiers: Cerebral palsy type: unspecified type Qualified Code(s): G80.9 - Cerebral palsy, unspecified Plan: Is mostly wheelchair dependent. Does have a SILK WINDING MACHINE OPERATOR home that helps her with activities daily living. Patient continues to manage her spastic pain with pregabalin and Tylenol. (2) HLD (hyperlipidemia): Code(s): E78.5 - Hyperlipidemia, unspecified Qualifiers: Hyperlipidemia type: mixed hyperlipidemia Qualified Code(s): E78.2 - Mixed hyperlipidemia Plan: PATIENT CONTINUES ON STATIN THERAPY WITHOUT SIDE EFFECT. MOST RECENT LIPID PANEL SHOWING ACCEPTABLE READINGS. CONTINUE TO LIPID PANEL WITH GOAL LDL TO BE BELOW 160 (3) Diabetes insipidus: Code(s): E23.2 - Diabetes insipidus Plan: Followed by endocrinology. Does not present on hold due to nephrolithiasis and awaiting urinary stent to be placed February 25. She does report urinary frequency and thirst, likely for her lower blood pressure readings today. (4) Hypothyroid: Code(s): E03.9 - Hypothyroidism, unspecified Qualifiers: Hypothyroidism type: acquired Qualified Code(s): E03.9 - Hypothyroidism, unspecified Plan: Patient continues on levothyroxine 75 mcg. Has been clinically and chemically euthyroid. Will continue to follow TSH to ensure normal (5) Hypotension: Code(s): I95.9 - Hypotension, unspecified Qualifiers: Hypotension type: hypotension due to hypovolemia Qualified Code(s): I95.89 - Other hypotension; E86.1 - Hypovolemia Plan: Lower blood pressure readings today in office likely due to hypovolemia secondary to her diabetes insipidus . Does more present on hold per patient due to her ongoing nephrolithiasis and kidney issues at this time. (6) Nephrolithiasis: Code(s): N20.0 - Calculus of kidney Plan: As above Orders: Orders Influenza [id number] Immunization 02/11/23 Z23 - Encounter for immunization Medications: New flu vacc [id number] 6mos up(PF) 0.5 mL IM ONCE 0.5 mL 0RF Z23 - Encounter for immunization miscellaneous medical supply 1 ea miscellaneous DAILY 99 days 1 ea 0RF G80.9 - Cerebral palsy, unspecified Coding Level of Care Code Est Pt Prev Care [id number]([id number]) Diagnoses Cerebral palsy, unspecified type G80.9 Cerebral palsy type: unspecified type Mixed hyperlipidemia E78.2 Hyperlipidemia type: mixed hyperlipidemia Diabetes insipidus E23.2 Acquired hypothyroidism E03.9 Hypothyroidism type: acquired Hypotension due to hypovolemia I95.89; E86.1 Hypotension type: hypotension due to hypovolemia Nephrolithiasis N20.0
== END 2023-02-11 15:28 | disposition home or self-care (01) ==
PROVIDERS: Visit Provider Physician Assistant
DX: Z23 Encounter for immunization (principal)
CPT/HCPCS: 90471; 90686; 99396

== ENCOUNTER 2023-08-20 14:13 | Outpatient (AMB) | payer OTHER, SELFPAY ==
--- NOTE | 2023-08-20 14:21 | MHC.PC.OV ---
Vital Signs 08/20/23 14:22 Height 4 ft 8 in Weight 200 lb 2.876 oz BMI 44.9 BP 110/82 Blood Pressure Location Lt brachial Position Sitting Pulse 87 Pulse Source Pulse Oximeter Pulse Oximetry (%) 96 Oxygen Delivery Method Room Air Intake Visit Reasons: PE/Medication review. Intake Note: Pt is here for routine F/U. Not due for PE. 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 HPI Details Patient is a 47 year-old female here today for follow-up visit . Patient has an extensive past medical history including cerebral palsy, diabetes insipidus, migraines, insomnia, IBS, depression, lumbr spine pain, HLD, , Nephrolithiasis (history of pyelonephritis-requiring nephrostomy tube) CHRONIC MEDICAL CONDITIONS--> ? .. ? 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 Patient currently gets 48 hours of [employer] services as her cerebral palsy is advanced and has trouble with ambulation and doing ADLs at home. Patient currently uses tramadol and? tizanidine treatment her pains and spasticity secondary to cerebral palsy.? She reports this current regime does manage her pain well. ? ... ? .. ? Hypothyroidism : Is followed by endocrinology and had a recent increase in her levothyroxine to 75 mcg.? Most recent TSH stable2. ?Also patient does have diabetes insipidus to which she takes desmopressin and has been stable. ? .. ? Depression: Patient does see a therapist in [facility], though has lost follow-up with her med provider and gets all of her mental health medications through her PCP. .. Diabetes insipidus: Continues on desmopressin. ? .. ? IBS-constipation type: Patient is chronically using senna due to bouts of constipation due to her IBS.? She has tried senna, Colace, Metamucil, Linzess, Medical magnesia, lactulose all without much relief of her constipation. Laboratory Tests 06/27/21 08/22/21 15:03 15:39 RBC 3.45 L Hgb 10.3 L TSH 1.03 0.97 PFSH Medical History (Updated 08/20/23 @ 14:50 by Deonte Carmona PA-C) Herpes simplex Depression Anxiety Diabetes insipidus Cerebral palsy Surgical History History of surgery on lower extremity Hx of appendectomy Family History Father No problems noted. Mother No problems noted. Social History Housing: Apartment Alcohol intake: never Patient Tobacco Use Status: Never used Tobacco e-Cigarette/Vaping Use: Never Used Second Hand Smoke Exposure: No service: No Current occupational status: disabled Current occupational exposures/hazards: No Cognitive needs: Yes (wheel chair ) Hearing needs: No Vision needs: Yes Questionnaire PHQ-9 Over the last 2 weeks, how often have you been bothered by any of the following problems? 1. Little interest or pleasure in doing things: not at all 2. Feeling down, depressed, or hopeless: not at all 3. Trouble falling or staying asleep, or sleeping too much: not at all 4. Feeling tired or having little energy: not at all 5. Poor appetite or overeating: not at all 6. Feeling bad about yourself - or that you are a failure or have let yourself or your family down: not at all 7. Trouble concentrating on things, such as reading the newspaper or watching television: not at all 8. Moving or speaking so slowly that other people could have noticed. Or the opposite - being so fidgety or restless that you have been moving around a lot more than usual: not at all 9. Thoughts that you would be better off or of hurting yourself in some way: not at all Total score: 0 Depression Screening Interpretation: Negative Depression Screening Done: Yes 50933 - PHQ-9 Billing: Yes Source: Developed by Drs. Clayton Meneses, Isabel Ponce, Shailesh Bolanos and colleagues, with an educational josé manuel from [employer]. Thrive Questionnaire Date Thrive assessed: 08/20/23 I am a: Patient What is your living situation today?: I have a steady place to live Within the past 12 months, did the food you bought not last and you didn't have the money to get more?: Never true Within the past 12 months, did you worry whether your food would run out before you got money to buy more?: Never true Do you have trouble paying for medicines?: No Do you have trouble getting transportation to medical appointments?: No Do you have trouble paying your heating and electricity bill?: No Do you have trouble taking care of your child, family member or friend?: No Do you have trouble with day-to-day activities such as bathing, preparing meals, shopping, managing finances, etc.?: No Are you currently unemployed and looking for a job?: No Are you interested in more education?: No Please select the resources that you would like help with: None Currently or been in a relationship where the following occur: no concerns reported THRIVE Score: 0 AUDIT C Alcohol Use Questionnaire (AUDIT-C) 1. How often do you have a drink containing alcohol?: Never Total Score: 0 ARMANDO-7 AMB Questionnaire ARMANDO-7 Date ARMANDO - 7 assessed: 08/20/23 Feeling nervous, anxious, or on edge: 0 = Not at all Not being able to stop or control worryin = Not at all Worrying too much about different things: 0 = Not at all Trouble relaxin = Not at all Being so restless that it is hard to sit still: 0 = Not at all Becoming easily annoyed or irritable: 0 = Not at all Feeling afraid as if something awful might happen: 0 = Not at all Total ARMANDO-7 score (0-4 normal; 5-9 mild; 10-14 moderate; 15-21 severe): 0 Source: Developed by Drs. Clayton Meneses, Isabel Ponce, Shailesh Bolanos and colleagues, with an educational josé manuel from [employer]. ARMANDO-7 Assessment Billing ARMANDO-7 Assessment Tool: ARMANDO-7 Assessment 51270 Review of Systems Const Denies headache(s) Eyes Denies loss of vision ENT Denies vertigo, Denies dizziness, Denies headache(s) and Denies sore throat Card Denies chest pain, Denies leg edema and Denies lightheadedness Resp Denies cough, Denies hemoptysis and Denies wheezing GI Denies abdominal pain, Denies melena, Denies constipation, Denies diarrhea and Denies vomiting Denies urinary frequency, Denies dysuria and Denies urinary urgency Musc Denies arthralgias, Denies joint swelling, Denies numbness and Denies tingling Neuro Denies Abnormal speech present, Denies behavioral changes, Denies vertigo, Denies dizziness, Denies headache(s), Denies loss of vision, Denies memory loss, Denies numbness and Denies tingling Psych Denies anxiety, Denies behavioral changes, Denies depression, Denies memory loss and Denies panic attacks Landen/Lymph Denies easy bleeding and Denies easy bruising Aller/Immun Denies wheezing Physical exam (Primary Care) Vital Signs: Last Vital Signs Pulse 87 08/20/23 14:22 BP 110/82 08/20/23 14:22 Pulse Ox 96 08/20/23 14:22 Oxygen Delivery Method Room Air 08/20/23 14:22 BMI result Body Mass Index 44.9 BMI Assessment/Plan discussion: High BMI High, discussed plan: lifestyle, weight reduction, dietary and physical activity Tobacco/Smoking Status: Tobacco use Status Tobacco use date assessed 08/20/23 08/20/23 14:32 Patient Tobacco Use Status Never used Tobacco 08/20/23 14:23 e-Cigarette/Vaping Use Never Used 08/20/23 14:23 PHQ-9: PHQ-9 Score PHQ-9: Total score 0 08/20/23 14:32 Depression Screening Interpretation: Negative Thrive Assessment: Date of Thrive Assessment Date Thrive assessed 08/20/23 08/20/23 14:32 Currently or been in a relationship where the following occur: no concerns reported Const Other: SITTING COMFORTABLY IN WHEELCHAIR General: healthy appearing, no acute distress, alert and awake Nutritional Appearance: well nourished Orientation/consciousness: oriented to person, oriented to place and oriented to time HENMT Ears: TM's normal bilaterally General nose exam: Normal nasal mucous membranes and turbinates present Eyes Conjunctivae: conjunctivae normal Sclerae: sclerae normal Pupils: Equal, round and reactive pupils present Neck Neck: Yes no lymphadenopathy and Yes no JVD Thyroid: Thyroid normal Carotids: no bruits Resp Effort & Inspection: normal respiratory effort and not tachypneic Auscultation: no crackles, no rales, no rhonchi and no wheezes Cardio Rate: regular rate Rhythm: regular rhythm Heart sounds: no murmurs and normal S1 and S2 GI Palpation (GI): Soft to palpation, nontender, no hepatomegaly and no splenomegaly Auscultation: normal bowel sounds Skin General skin exam: no rashes or lesions noted and dry skin Neuro General: oriented to person, oriented to place and oriented to time Cranial nerves: Yes Equal, round and reactive pupils present Speech: No Abnormal speech present Gait exam (Neuro): Normal gait present Motor exam (neuro): no tremor noted Extrem Right upper extremity: full ROM Left upper extremity: full ROM Right lower extremity: full ROM; no edema Left lower extremity: full ROM; no edema Psych Mental Status: mental status grossly normal Speech and movement: Normal speech and movement present Affect: normal affect Attitude: cooperative Thought process: Normal thought process present Assessment and Plan Assessment & Plan (1) Cerebral palsy: Comment: W/C Code(s): G80.9 - Cerebral palsy, unspecified Qualifiers: Cerebral palsy type: unspecified type Qualified Code(s): G80.9 - Cerebral palsy, unspecified Plan: Is mostly wheelchair dependent. Does have a [employer] home that helps her with activities daily living. Patient continues to manage her spastic pain with pregabalin and Tylenol. (2) HLD (hyperlipidemia): Code(s): E78.5 - Hyperlipidemia, unspecified Qualifiers: Hyperlipidemia type: mixed hyperlipidemia Qualified Code(s): E78.2 - Mixed hyperlipidemia Plan: PATIENT CONTINUES ON STATIN THERAPY WITHOUT SIDE EFFECT. MOST RECENT LIPID PANEL SHOWING ACCEPTABLE READINGS. CONTINUE TO LIPID PANEL WITH GOAL LDL TO BE BELOW 160 (3) Diabetes insipidus: Code(s): E23.2 - Diabetes insipidus Plan: Followed by endocrinology. Continues on desmopressin with good effect on her fluid intake and urination. (4) Hypothyroid: Code(s): E03.9 - Hypothyroidism, unspecified Qualifiers: Hypothyroidism type: acquired Qualified Code(s): E03.9 - Hypothyroidism, unspecified Plan: Patient continues on levothyroxine 75 mcg. Has been clinically and chemically euthyroid. Will continue to follow TSH to ensure normal (5) Nephrolithiasis: Code(s): N20.0 - Calculus of kidney Plan: As above- did have a large kidney stone that resulted in pyelonephritis with the need for nephrostomy tube. Nephrostomy tube has been removed and patient doing well. Drinking more water and urinating well. (6) Breast cancer screening: Code(s): Z12.39 - Encounter for other screening for malignant neoplasm of breast Qualifiers: Breast cancer screening modality: mammogram Qualified Code(s): Z12.31 - Encounter for screening mammogram for malignant neoplasm of breast Plan: Patient is in need of a new screening mammogram. Orders: Orders TSH reflex Free T4 Today E03.9 - Hypothyroidism, unspecified Lipid Panel Today E78.2 - Mixed hyperlipidemia Vitamin B12 and Folate Today E53.8 - Deficiency of other specified B group vitamins Comprehensive Rough And Ready. Panel Fast Today Z13.1 - Encounter for screening for diabetes mellitus MM screening mammo BI Today Z12.31 - Encounter for screening mammogram for malignant neoplasm of breast Patient Instructions: Goal: LDL to be below 130 Barriers: Adherence to physical activity and healthy eating habits Coding Level of Care Code Est Pt Level 4 (12100) Diagnoses Cerebral palsy, unspecified type G80.9 Cerebral palsy type: unspecified type Mixed hyperlipidemia E78.2 Hyperlipidemia type: mixed hyperlipidemia Diabetes insipidus E23.2 Acquired hypothyroidism E03.9 Hypothyroidism type: acquired Nephrolithiasis N20.0 Encounter for screening mammogram for malignant neoplasm of breast Z12.31 Breast cancer screening modality: mammogram Additional Codes ARMANDO-7 Assessment Billing - ARMANDO-7 Assessment Tool: ARMANDO-7 Assessment 97602 ([id number])
[2023-08-20 14:22] VITALS: BP 110/82; PULSE 87; O2SAT 96; BMI 44.9
--- OUTSIDE RECORDS SUMMARY | 2023-08-20 18:14 | XMS_ITS | Continuity of Care Document ---
Author Organization [facility] ter Address [address] [place] [address]- Care Team Providers Care Billing Rep Name Role Phone Elsa MACIAS, Carlos Newton Primary Care Physician Encounter [facility] [place] Date(s): 05/01/23 - 05/01/[address] [address]- Encounter Diagnosis Right flank pain(Final) - 05/01/23 UTI (urinary tract infection)(Final) - 05/01/23 Discharge Disposition: A-D/C Home Attending Physician: Jefferson Desai MD Admitting Physician: Jefferson Desai MD Referring Physician: Not on Staff, Referring MD Allergies, Adverse Reactions, Alerts Substance Reaction Severity Status Zomig Active Ambien Active TraZODONE Hydrochloride Acti ve Immunizations Given and Recorded Vaccine Date Status Refusal Reason pneumococcal 23-valent vaccine 02/01/11 Given influenza virus vaccine, inactivated 02/01/11 Give n Medications Amitiza 8 mcg oral capsule 1 capsule = 8 mcg, By Mouth, 2 times a day, # 60 tablet, 0 Refills, Maintenance, 05/27/15 9:29:37, Capsule Start Date: 05/27/15 Status: Ordered Bactrim DS 800 mg-160 mg oral tablet 1 tablet, By Mouth, 2 times a day, # 10 tablet, 0 Refills, Maintenance, 05/01/23 20:29:00 EST, Tablet, [facility]/pharmacy #[id number], Partial fill upon patient request if the prescription is for a schedule II opioid drug., 1 tablet By Mouth 2 times a day,x5 days... Start Date: 05/01/23 Stop Date: 05/06/23 Status: Ordered Colace sodium 100 mg oral capsule 1 capsule = 100 mg, By Mouth, 2 times a day, PRN as needed for constipation, # 60 capsule, 2 Refills, Maintenance Start Date: 06/20/10 Status: Ordered desmopressin 0.1 mg oral tablet = 0.1 mg, By Mouth, 2 times a day, # 60 tablet, 0 Refills, Maintenance, 07/28/15 9:15:46, Tablet Start Date: 07/28/15 Status: Ordered Diclofenac = 75 mg, By Mouth, 2 times a day, 0 Refills, Maintenance, 07/05/15 14:00:43 Start Date: 07/05/15 Status: Ordered doxepin 100 mg oral capsule 1.5 capsule = 150 mg, By Mouth, Daily at bedtime, # 30 capsule, 0 Refills, Maintenance, 05/27/15 9:29:53, Capsule Start Date: 05/27/15 Status: Ordered doxepin 75 mg oral capsule 1 capsule = 75 mg, By Mouth, Daily at bedtime, 0 Refills, Maintenance, 10/10/15 14:46:28 Start Date: 10/10/15 Status: Ordered esomeprazole 40 mg oral enteric coated capsule 1 capsule = 40 mg, By Mouth, Daily, # 30 capsule, 0 Refills, Maintenance, 08/08/15 12:19:03, EC Capsule Start Date: 08/08/15 Stop Date: 09/07/15 Status: Ordered Flexeril 10 mg oral tablet 10 mg, 1, tablet, By Mouth, 3 times a day, Refills 0, Maintenance, 07/05/15 14:08:17 Start Date: 07/05/15 Status: Ordered gabapentin 100 mg oral capsule 100 mg, 1, capsule, By Mouth, 3 times a day, # 90 capsule, Refills 0, Maintenance, 08/06/15 12:49:15 Start Date: 08/06/15 Status: Ordered KLONopin Tablet = 0.5 mg, By Mouth, 2 times a day, Maintenance, 12/26/12 22:09:50 Start Date: 12/26/12 Status: Ordered Lyrica 50 mg oral capsule = 50 mg, By Mouth, 2 times a day, # 24 capsule, 0 Refills, Maintenance, 07/28/15 9:34:00, Capsule Start Date: 07/28/15 Status: Ordered Mapap Arthritis Pain = 1,300 mg, By Mouth, 2 times a day, Maintenance, 12/26/12 22:09:39 Start Date: 12/26/12 Status: Ordered meloxicam 15 mg oral tablet 1 tablet = 15 mg, By Mouth, Daily, # 30 tablet, 0 Refills, Maintenance, 08/06/15 12:50:35, Tablet Start Date: 08/06/15 Status: Ordered MiraLax oral powder for reconstitution = 17 Gm, By Mouth, Daily, dissolve in water before taking, # 255 Gm, 0 Refills, Maintenance, 09/08/15 3:03:10, REC Powder Start Date: 09/08/15 Status: Ordered Multivitamin By Mouth, Daily, 0 Refills, Maintenance, 11/02/13 15:25:42 Start Date: 11/02/13 Status: Ordered ondansetron 4 mg oral tablet 1 tablet = 4 mg, By Mouth, Every 8 hours, PRN as needed for nausea/vomiting, 0 Refills, Maintenance, 08/06/15 12:49:49, Tablet Start Date: 08/06/15 Status: Ordered oxacillin 2 gm/50 ml intravenous solution = 2,000 mg, IV Infusion, Every 4 hours, # 252 Doses, 0 Refills, Maintenance, 07/28/15 9:34:12 Start Date: 07/28/15 Stop Date: 09/08/15 Status: Ordered oxybutynin 15 mg/24 hr oral tablet, extended release = 15 mg, By Mouth, Daily, # 30 tablet, 0 Refills, Maintenance, 07/28/15 9:31:50, ER Tablet Start Date: 07/28/15 Status: Ordered oxyCODONE 10 mg oral tablet 1 tablet = 10 mg, By Mouth, Every 6 hours, PRN Pain , Moderate, 0 Refills, Maintenance, 08/06/15 12:47:08, Tablet Start Date: 08/06/15 Status: Ordered Seroquel XR 200 mg oral tablet, extended release 1 tablet = 200 mg, By Mouth, Daily at bedtime, # 30 tablet, 0 Refills, Maintenance, 11/02/13 15:23:08, ER Tablet Start Date: 11/02/13 Status: Ordered traMADol 50 mg oral tablet 1 tablet = 50 mg, By Mouth, Every 12 hours, PRN as needed for pain, # 56 tablet, 3 Refills, Maintenance, 10/27/15 13:54:40, Tablet Start Date: 10/27/15 Status: Ordered venlafaxine 150 mg oral capsule, extended release 300 mg, 2, capsule, By Mouth, Daily, Refills 0, Maintenance, 07/28/15 9:19:30 Start Date: 07/28/15 Status: Ordered Vitamin B-12 Tablet 1,000 mcg, By Mouth, Daily, Maintenance, 12/26/12 22:10:02 Start Date: 12/26/12 Status: Ordered Vitamin D3 1000 intl units oral tablet 1 tablet = 1,000 International_Units, By Mouth, Daily, # 30 tablet, 0 Refills, Maintenance, 07/18/15 9:37:46, Tablet Start Date: 07/18/15 Status: Ordered ZyrTEC 10 mg oral tablet 1 tablet = 10 mg, By Mouth, Daily, 0 Refills, Maintenance, 07/05/15 14:06:59 Start Date: 07/05/15 Status: Ordered Problem List Condition Confirmation Course Effective Dates Status Health St atus Informant Abdominal pain Confirmed Active Cerebral palsy Confirmed Active Chronic back pain Confirmed Active Depression Confirmed Active Diabetes insipidus s/p pituitary tumor resection Confirmed Active GERD (gastroesophageal reflux disease) Confirmed Active Nephrolithiasis, 80% calcium oxalate Confirmed Active Severe obesity Confirmed Active Results Radiology Reports * Exam Date Time Procedure Performing Provider Status 05/01/23 6:[address] Abdomen and Pelvis W/O Contrast Owanka n Starr; Auth (Verified) Notes: (CT Abdomen and Pelvis W/O Contrast) Reason For Exam: Flank pain, kidney stone suspected;Other: RESULT: CT Abdomen and Pelvis W/O Contrast CT Abdomen and Pelvis W/O Contrast Hx of Present Illness: R sided flank pain, recent stent and nephrostomy to the L side, pain x3-4 days, denies dysuia or hematuria, reporting frequency, had US last week and showed that she had stonesin bilat kidneys but were not obstructing; Reason: Other:; Flank pain, kidney stone suspected; Clinical Question(s): Calculus; Right Side flank; Order Comment: TECHNIQUE: Spiral CT through the abdomen and pelvis without IV contrast formatted in 3 planes. Thisstudy was performed without oral contrast. Weight- based protocol using automatic tube modulation was used to optimize exposure parameters. CTDIvol Body: 22.17 mGy, DLP Body: 1107 mGy*cm. COMPARISON: Most recent CT from 09/17/2016. There is an ultrasound from 04/17/2023. FINDINGS: Disk Sander View Findings, Lines and Tubes: None. Visualized Chest: Lung bases are clear. No pleural effusion. The heart is normal in size. No pericardial effusion. Diaphragm: Normal. Liver: No abnormalities for noncontrast exam. Gallbladder: No CT evidence of gallbladder pathology. Bile ducts: No biliary ductal dilation. Spleen: Normal. Pancreas: Unremarkable. Adrenal glands: No nodules. Kidneys and ureters: No hydronephrosis. There is an extrarenal pelvis on the left which tapers at the UPJ. There are 4 nonobstructing calculi on the left between 3 and 5 mm. No right-sided nephrolithiasis. Bladder: Unremarkable. Reproductive organs: Normal IUD positioning. No adnexal mass or cyst. Stomach, small bowel, and large bowel: Stomach and small bowel loops are nondistended. There is no evidence for bowel obstruction. There is mild retention of stool throughout the colon. No diverticulitis or colitis. Appendix: No evidence of appendicitis. Peritoneum and retroperitoneum: No ascites or pneumoperitoneum. No omental or mesenteric lesions. Lymph nodes: No enlarged lymph nodes. Blood vessels: Normal. No aneurysm. Abdominal and pelvic wall: Unremarkable. Bones: No acute abnormality. IMPRESSION: No specific acute intra-abdominal pathology. No bowel obstruction. Nonobstructing left nephrolithiasis. Mild prominence of left kidney extrarenal pelvis which tapers at the UPJ. No ureteral calculus or obstructing lesion is identified. Mild constipation. WSN: [id number] Ordering Physician: Alexei Cox Dictated By: Ezequiel Araujo MD Dictated Date/Time: 05/01/23 7:36 pm Reviewed By: Ezequiel Araujo MD Signed By: Ezequiel Araujo MD Signed Date/Time: 05/01/23 7:36 pm Transcribed By: LARY Transcribed Date/Time: 05/01/23 7:22 pm Vital Signs Most recent to oldest [Reference Range]: 1 2 Height 142 cm (05/01/23 2:17 PM) Weight 98 kg (05/01/23 2:17 PM) Oxygen Saturation [94-100 %] 99 % (05/01/23 7:55 PM) 100 % (05/01/23 2:17 PM) Pulse Rate [55-90 bpm] 78 bpm (2/1/24 7:55 PM) 105 bpm *H* (05/01/23 2:17 PM) Body Mass Index [18.5-24.99 kg/m2] 48.6 kg/m2 *>HHI* (05/01/23 2:17 PM) Blood Pressure [90-138/55-84 mm Hg] 123/ 88mm Hg (05/01/23 7:55 PM) 116/68mm Hg (05/01/23 2:17 PM) Respiratory Rate [16-30 br/min] 16 br/mi n (05/01/23 7:55 PM) Temperature [96.8-100.4 DegF] 97.9 DegF (05/01/23 7:55 PM) 99.2 DegF (05/01/23 2:17 PM) Mode of Delivery (Oxygen) Room air (05/01/23 7:55 PM) Room air (05/01/23 2:17 PM) Blood pressure sites Arm, left (05/01/23 7:55 PM) Arm, left (05/01/23 2:17 PM) Temperature Route Oral (05/01/23 7:55 PM) Oral (05/01/23 2:17 PM) Dry Weight 98 kg (05/01/23 2:17 PM) Weight Obtained Via Patient/family state d (05/01/23 2:17 PM) Dry Weight Obtained Via Patient/family s tated (05/01/23 2:17 PM) Social History Social History Type Response Smoking Status Former smoker; Tobac co user in household: Yes entered on: 06/17/16 Sex Note * Suni Wan NP: PERFORM Event Display: Patient Education Leaflets Authored Date: [id number] Urinary Tract Infections in Women ?? [id number] Urinary Tract Infections in Women Urinary tract infections (UTIs) are most often caused by bacteria. These bacteria enter the urinarytract. The bacteria may come from inside the body. Or they may travel from the skin outside the rectum or vagina into the urethra. Female anatomy makes it easy for bacteria from the bowel to enter a woman???s urinary tract. This is the most common source of UTI. This means women develop UTIs more often than men. Pain in or around the urinary tract is a common UTI symptom. Most UTIs are treated with antibiotics. These kill the bacteria. The length of time you need to take them depends on the type of infection. It may be as short as 3 days. If you have repeated UTIs, you may need a low-dose antibiotic for several months. Take antibiotics exactly as directed. Don???t stop taking them until all of the medicine is gone. If you stop taking the antibiotic too soon, the infection may not go away. You may also develop a resistance to the antibiotic. This can make it muchharder to treat in the future. Gender words are used here to talk about anatomy and health risk. Please use this information in a way that works best for you and your provider as you talk about your care. Home care The lifestyle changes below will help get rid of your UTI. They may also help prevent future UTIs: ??? Drink plenty of fluids. This includes water, juice, or other caffeine-free drinks. Fluids help flush bacteria out of your body. ??? Empty your bladder. Always empty your bladder when you feel the urge to pee. And always pee before going to sleep. Urine that stays in your bladder can lead to infection. Try to pee before and after sex as well. ??? Practice good personal hygiene. Wipe yourself from front to back after using the toilet. This helps keep bacteria from getting into the urethra. ???Use condoms during sex. These help prevent UTIs caused by sexually transmitted bacteria. Also don'tuse spermicides during sex. These can increase the risk for UTIs. Choose other forms of control instead. For women who tend to get UTIs after sex, a low dose of a preventive antibiotic may be used. Be sure to discuss this choice with your healthcare provider. ??? Try holistic supplements, such as cranberry tablets and D-mannose. These may help prevent UTIs. ??? Try topical vaginal estrogen.You can use this to help prevent UTIs if you have gone through menopause. ?? Follow-up care Follow up with your healthcare provider as directed. They may test to make sure the infection has cleared. If needed, more treatment may be started. ?? When to get medical advice Call your healthcare provider right away if any of the following occur: ??? Frequent urination ??? Pain or burning when passing urine ??? Fever of 100.4??F (38??C) or higher, or as directed by your healthcare provider ??? Urine looks dark, cloudy, or reddish in color. This may mean that blood is inthe urine. ??? Urine smells bad ??? Feeling pain even when not urinating ??? Tiredness ??? Pain in the belly (abdomen) area below the bellybutton, or in the back or side, below the ribs ??? Nausea orvomiting ??? Have a strong urge to urinate, but only a small amount of urine is passed ??? Uncomfortable pressure above the pubic bone ??? Feeling confused or very tired (in older adults) ?? Last Reviewed Date: 2022 ?? [employer]. All rights reserved. This information is not intended as a substitute for professional medical care. Always follow your healthcare professional's instructions. ?? * Soco GLASGOW, Suni Joshi: PERFORM Event Display: Patient Education Leaflets Authored Date: [id number] Flank Pain with Uncertain Cause ?? [id number] Flank Pain with Uncertain Cause The flank is the area between your upper belly (abdomen) and your back. Pain there is often caused by a problem with your kidneys. It might be a kidney infection or a kidney stone. Other causes of flank pain include spinal arthritis, a pinched nerve from a back injury, a rib injury, a bruise, a back muscle strain, inflammation, or spasm. The cause of your flank pain is not certain. You may need other tests. Home care Follow these tips when caring for yourself at home: ??? You may use acetaminophen or ibuprofen to control pain, unless your healthcare provider prescribed another medicine. If you have chronic liver or kidney disease, talk with your provider before taking these medicines. Also talk with your provider first if you???ve ever had a stomach ulcer or digestive bleeding. ??? If the pain is coming from your muscles, you may get relief with ice or heat. During the first 2 days after the injury, put an ice pack on the painful area for 20 minutes every 2 to 4 hours. This will reduce swelling and pain. A hot shower, hot bath, or heating pad works well for a muscle spasm. You can start with ice, then switch to heat after 2 days. You might find that alternating ice and heat works well. Use the method that feels the best to you. ?? Follow-up care Follow up with your healthcare provider if your symptoms don???t get better over the next few days. ?? When to seek medical advice Call your healthcare provider right away??if any of these happen: ??? Repeated vomiting ??? Fever of 100.4??F (38??C) or higher, or as directed by your healthcare provider ??? Chills ??? Flank pain that gets worse ??? Pain that spreads to the front of your belly (abdomen) ??? Dizziness, weakness, or fainting ??? Blood in your urine ??? Burning feeling when you urinate or the need to urinate often??? Pain in one of your legs that gets worse ??? Numbness or weakness in a leg ?? Last Reviewed Date: 2021 ?? [id number] [employer]. All rights reserved. This information is not intended as a substitute for professional medical care. Always follow your healthcare professional's instructions. ?? Patient Care team information Care Team Personnel Name: Mary Preciado RN Position: [facility] RN Member Role: Primary Care Nurse Name: Solange Dupont RN Position: [facility] RN Member Role: Primary Care Nurse Name: Tiffanie Aguilar NP Position: [facility] Associate Professional Member Role: Primary Care Nurse Address: Address: [address] [place] [address] [place] [address]- Name: Holli Pete RN Position: [facility] OB RN Member Role: Primary Care Nurse Name: Kathryn Stevenson RN Position: [facility] SN RN Member Role: Primary Care Nurse Name: Becky Malik RN Position: [facility] ED RN W/OE and Tasks Member Role: Primary Care Nurse Name: Ethel Martinez RN Position: [facility] RN Member Role: Primary Care Nurse Name: Carlos Hunter MD Position: Reference Physician Member Role: PCP Address: Address: [address] [place] [address] [address] [place] [address]- Name: Toro Quintero MD Position: [facility] Renal MD Member Role: Lifetime Consulting Physician Address: Address: [address] [place] [address] [facility] [place], [place] [address] Name: Radha GARCIA, Jess Gold Position: [facility] OB RN Member Role: Primary Care Nurse Name: Ryan Mukherjee RN Position: S RN Member Role: Primary Care Nurse Name: Arnulfo Ross MD Position: [facility] BOX CAR CHECKER MD Member Role: Lifetime BOX CAR CHECKER Physician Address: Address: [address] [place] [address] [facility], [place] [address]- Name: Bernice Hightower RN Position: S RN Member Role: Primary Care Nurse Name: Marcie Mann RN Position: S RN Member Role: Primary Care Nurse Care Team Related Persons Name: KATI CACERES Address: [place] [address] Name: ANASTASIYA GILLETTE Name: LUCRECIA BURDEN Address: home [address]
== END 2023-08-20 14:52 | disposition home or self-care (01) ==
PROVIDERS: PCP Nurse Practitioner Family; Visit Provider Physician Assistant
DX: G80.9 Cerebral palsy, unspecified (principal); E78.2 Mixed hyperlipidemia; E23.2 Diabetes insipidus; E03.9 Hypothyroidism, unspecified; N20.0 Calculus of kidney; Z12.31 Encounter for screening mammogram for malignant neoplasm of breast
CPT/HCPCS: 99214

== ENCOUNTER 2023-08-20 15:00 | Outpatient (REF) | payer OTHER, SELFPAY ==
[2023-08-20 20:00] LABS: Alanine Aminotransferase 24 U/L (0-31); Albumin Level 4.7 g/dL (3.5-5.0); Alkaline Phosphatase 113 U/L (39-117); Anion Gap 17 (12-20); Aspartate Amino Transferase 22 U/L (5-31); Bilirubin Total 0.4 mg/dL (0.0-1.0); Blood Urea Nitrogen 9 mg/dL (9-16); Carbon Dioxide 20 mmol/L (22-29); Chloride 111 mmol/L (96-108); Cholesterol 121 mg/dL (<200); Estimated Glomerular Filt Rate > 60; Glucose Fasting 84 mg/dL (60-99); HDL Cholesterol 49 mg/dL (>40); LDL Cholesterol Calculated 51 mg/dL (<100); Potassium 3.6 mmol/L (3.3-5.1); Sodium 144 mmol/L (135-145); Total Protein 7.4 g/dL (6.5-8.0); Triglycerides 109 mg/dL (<150)
[2023-08-20 20:14] LABS: TSH reflex Free T4 0.88 uIU/mL (0.32-4.0)
[2023-08-20 20:44] LABS: Folate > 20.0 ng/mL (> or = 4.0); Vitamin B12 485 pg/mL (200-900)
== END 2023-08-20 15:01 | disposition home or self-care (01) ==
LOC: HO.LAB 15:00
PROVIDERS: PCP Physician Assistant; Visit Provider Physician Assistant
DX: Z13.1 Encounter for screening for diabetes mellitus (principal); E03.9 Hypothyroidism, unspecified; E78.2 Mixed hyperlipidemia; E53.8 Deficiency of other specified B group vitamins
CPT/HCPCS: 36415; 80053; 80061; 82607; 82746; 84443

== ENCOUNTER 2024-01-20 09:59 | Outpatient (AMB) | payer OTHER, SELFPAY ==
[2024-01-20 10:09] VITALS: BP 90/60; PULSE 99; O2SAT 97; BMI 45.1
--- NOTE | 2024-01-20 10:09 | A.OFFPC_ITS ---
Vital Signs 3 01/20/24 10:09 Height 4 ft 8 in Weight 201 lb 0.985 oz BMI 45.1 BP 90/60 Blood Pressure Location Lt brachial Position Sitting Pulse 99 Pulse Source Pulse Oximeter Pulse Oximetry (%) 97 Oxygen Delivery Method Room Air Intake Visit Reasons: [facility] 12/25 fall, elbow & shoulder Intake Note: Pt is here for [facility] ED F/U for Right shoulder /elbow pain after a mechanical fall. 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 Allergies trazodone Allergy (Unknown, Verified 01/20/24 10:50) hives zolmitriptan [Zomig] Allergy (Unknown, Verified 01/20/24 10:50) hives zolpidem [Ambien] Allergy (Unknown, Verified 01/20/24 10:50) hives Medication List - Last Reconciled 01/20/24 by Deonte Carmona PA-C acetaminophen ER 1,300 mg (2 x 650 mg) PO Q12H PRN 90 days [adult pull ups As directed] atorvastatin 40 mg PO DAILY bisacodyl (Laxative (bisacodyl)) mg PO bisacodyl 10 mg WI DAILY PRN mymnxvzhls-zfekqjkzijjwm-rwha 50-325-40 mg 1 tab PO Q6H PRN cefuroxime axetil 250 mg PO Q12H 5 days cholecalciferol (vitamin D3) (Vitamin D3) 50 mcg PO DAILY desmopressin 0.1 mg PO BID 90 days [disposable bedpads As directed] disposable gloves As directed disposable gloves As directed docusate sodium (Colace) 100 mg PO BID 30 days doxepin 75 mg PO BID famotidine 40 mg PO BEDTIME ferrous sulfate 325 mg PO DAILY 90 days Gait belt As directed incontinence pad, liner, disp As directed [incontinence wipes As directed] [incontinence wipes As directed] levothyroxine 75 mcg PO 6XW lidocaine 5% (Lidoderm) 1 patch topical DAILY meclizine 25 mg PO DAILY PRN 14 days methylcellulose (laxative) (Fiber Therapy (methylcellulose)) 500 mg PO TID miconazole nitrate (Monistat 3) 1 appful vaginal BEDTIME 3 days mirabegron ER (Myrbetriq) 25 mg PO DAILY miscellaneous medical supply 1 ea miscellaneous BID 90 days miscellaneous medical supply 1 ea miscellaneous DAILY 99 days omeprazole 40 mg PO DAILY pregabalin 200 mg PO BID 30 days quetiapine 50 mg PO DAILY quetiapine 200 mg PO DAILY tizanidine 4 mg PO BID 90 days tramadol 50 mg PO BID 30 days venlafaxine ER 150 mg PO DAILY 90 days vitamin B complex (B Complex-Vitamin B12 tablet) 1 tab PO DAILY zaleplon 5 mg PO BEDTIME PRN 30 days Tobacco use date assessed: 08/20/23 Dental Screening Dental Screen Date: 08/20/23 [facility] 12/25 fall, elbow & shoulder 2 HPI0 Details Patient is a 48-year-old female here today for a ER follow-up visit. She sustained a mechanical fall December 25 and was seen at [facility] ER. X-rays of her elbow and shoulder were done without any significant fractures. She continues with some lateral right elbow pain to which this is actually a chronic issue as well. Also has some minor right shoulder pain since the fall as well. In his difficult for her to make a recovery as she continues to need use of her upper extremities to transfer in and out of chairs due to her cerebral palsy. PLAN: Will send to physical therapy and orthopedics for possible cortisone injection in her right elbow if needed [facility] Medical History Herpes simplex Depression Anxiety Diabetes insipidus Cerebral palsy Surgical History History of surgery on lower extremity Hx of appendectomy Family History Father No problems noted. Mother No problems noted. Social History Housing: Apartment Alcohol intake: never Patient Tobacco Use Status: Never used Tobacco e-Cigarette/Vaping Use: Never Used Second Hand Smoke Exposure: No service: No Current occupational status: disabled Current occupational exposures/hazards: No Cognitive needs: Yes (wheel chair ) Hearing needs: No Vision needs: Yes Questionnaire Thrive Questionnaire Date Thrive assessed: 08/20/23 ARMANDO-7 AMB Questionnaire ARMANDO-7 Date ARMANDO - 7 assessed: 08/20/23 Source: Developed by Drs. Clayton Meneses, Isabel Ponce, Shailesh Bolanos and colleagues, with an educational josé manuel from [employer]. Review of Systems Const Denies headache(s) Eyes Denies loss of vision ENT Denies vertigo, Denies dizziness, Denies headache(s) and Denies sore throat Card Denies chest pain, Denies leg edema and Denies lightheadedness Resp Denies cough, Denies hemoptysis and Denies wheezing GI Denies abdominal pain, Denies melena, Denies constipation, Denies diarrhea and Denies vomiting Denies urinary frequency, Denies dysuria and Denies urinary urgency Musc Denies arthralgias, Denies joint swelling, Denies numbness and Denies tingling Neuro Denies Abnormal speech present, Denies behavioral changes, Denies vertigo, Denies dizziness, Denies headache(s), Denies loss of vision, Denies memory loss, Denies numbness and Denies tingling Psych Denies anxiety, Denies behavioral changes, Denies depression, Denies memory loss and Denies panic attacks Landen/Lymph Denies easy bleeding and Denies easy bruising Aller/Immun Denies wheezing Physical exam (Primary Care) Vital Signs: Last Vital Signs Pulse 99 01/20/24 10:09 BP 90/60 01/20/24 10:09 Pulse Ox 97 01/20/24 10:09 Oxygen Delivery Method Room Air 01/20/24 10:09 BMI result Body Mass Index 45.1 Tobacco/Smoking Status: Tobacco use Status Tobacco use date assessed 08/20/23 01/20/24 10:09 Patient Tobacco Use Status Never used Tobacco 01/20/24 10:09 e-Cigarette/Vaping Use Never Used 01/20/24 10:09 Thrive Assessment: Date of Thrive Assessment Date Thrive assessed 08/20/23 01/20/24 10:09 Const General: healthy appearing, no acute distress, alert and awake Nutritional Appearance: well nourished Orientation/consciousness: oriented to person, oriented to place and oriented to time HENMT Ears: TM's normal bilaterally General nose exam: Normal nasal mucous membranes and turbinates present Eyes Conjunctivae: conjunctivae normal Sclerae: sclerae normal Pupils: Equal, round and reactive pupils present Neck Neck: Yes no lymphadenopathy and Yes no JVD Thyroid: Thyroid normal Carotids: no bruits Resp Effort & Inspection: normal respiratory effort and not tachypneic Auscultation: no crackles, no rales, no rhonchi and no wheezes Cardio Rate: regular rate Rhythm: regular rhythm Heart sounds: no murmurs and normal S1 and S2 GI Palpation (GI): Soft to palpation, nontender, no hepatomegaly and no splenomegaly Auscultation: normal bowel sounds Skin General skin exam: no rashes or lesions noted and dry skin Neuro General: oriented to person, oriented to place and oriented to time Cranial nerves: Yes Equal, round and reactive pupils present Speech: No Abnormal speech present Gait exam (Neuro): Normal gait present Motor exam (neuro): no tremor noted Extrem Right upper extremity: full ROM Left upper extremity: full ROM Elbow/forearm/wrist images: 2 1. PAIN TO PALPATION LOCATED IN THE AREA LATERAL RIGHT ELBOW. Right lower extremity: full ROM; no edema Left lower extremity: full ROM; no edema Psych Mental Status: mental status grossly normal Speech and movement: Normal speech and movement present Affect: normal affect Attitude: cooperative Thought process: Normal thought process present Coding Level of Care Code Est Pt Level 3 (47538) Diagnoses Lateral epicondylitis, right elbow M77.11 Colon cancer screening Z12.11 Assessment & Plan Assessment & Plan (1) Lateral epicondylitis, right elbow: Code(s): M77.11 - Lateral epicondylitis, right elbow Category: Medical Plan: Patient's signs symptoms most consistent with a lateral epicondylitis. Will likely benefit from physical therapy and p.r.n. use NSAIDs. (2) Colon cancer screening: Code(s): Z12.11 - Encounter for screening for malignant neoplasm of colon Category: Medical Plan: Patient willing to do Cologuard Orders: Orders 2 PT Evaluation and Treatment 01/20/24 M77.11 - Lateral epicondylitis, right elbow UA CC w/rflx Micro + Cult 01/20/24 R30.0 - Dysuria, R32 - Unspecified urinary incontinence Referrals 2 Cologuard Test Z12.11 - Encounter for screening for malignant neoplasm of colon Orthopedics Referral M77.11 - Lateral epicondylitis, right elbow Medications: New 2 naproxen 500 mg PO BID 30 tabs 0RF 15 days M77.11 - Lateral epicondylitis, right elbow
== END 2024-01-20 11:28 | disposition home or self-care (01) ==
PROVIDERS: PCP Physician Assistant; Visit Provider Physician Assistant
DX: M77.11 Lateral epicondylitis, right elbow (principal); Z12.11 Encounter for screening for malignant neoplasm of colon

== ENCOUNTER → 2024-01-20 09:59 | Outpatient (BNVA) | payer OTHER, SELFPAY | PROVIDERS: PCP Physician Assistant; Visit Provider Physician Assistant | DX: M77.11 Lateral epicondylitis, right elbow (principal) | CPT/HCPCS: 99212 ==

== ENCOUNTER 2024-02-16 13:54 | Outpatient (AMB) | payer OTHER, SELFPAY ==
--- NOTE | 2024-02-16 13:55 | MHC.OFFVIS ---
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 Patient reports her right elbow has been hurting her for a few months. She reports a fall roughly 2 months ago resulting in her landing on her right side. She expresses swelling in her forearm accompanied by her pain. She says when she attempts to re-adjust herself in bed her symptoms are exacerbated from repetition of pulling motions. She says she has numbness and tingling in right hand. 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 The patient states that approximately 2-3 months ago, she fell onto her right side, and since then her elbow has been bothering her. The patient states that she does not have a lot of pain at baseline, but this pain worsened significantly with repetitive pulling motions or any other repetitive motion of the right wrist or forearm. Patient also reports some numbness and tingling that is intermittent, daily, and worse at night in the right hand. No other acute complaints or concerns at this time. [facility] Medical History Herpes simplex Depression Anxiety Diabetes insipidus Cerebral palsy Surgical History History of surgery on lower extremity Hx of appendectomy Family History Father No problems noted. Mother No problems noted. Social History Housing: Apartment Alcohol intake: never Patient Tobacco Use Status: Never used Tobacco e-Cigarette/Vaping Use: Never Used Second Hand Smoke Exposure: No service: No Current occupational status: disabled Current occupational exposures/hazards: No Cognitive needs: Yes (wheel chair ) Hearing needs: No Vision needs: Yes Review of Systems Const All systems reviewed & are unremarkable except as noted in HPI and below Physical Exam Vital Signs: BMI result Body Mass Index 44.8 Extrem Other: On inspection, there is no visible deformity of the patient's right elbow No lacerations, abrasions, open areas No erythema, edema, ecchymosis noted No evidence of infection Patient reports tenderness to palpation of the lateral epicondyle of the right elbow No tenderness to palpation of the medial epicondyle, radial head, or olecranon process Patient is able to extend the elbow to approximately 0 degrees and flex to approximately 120 degrees without difficulty Pronation and supination full and intact Positive Cozen's test Distal sensation intact Capillary refill brisk Right hand exam Neuro: Normal sensation of the tips of all digits of the right hand in the office today No thenar or intrinsic wasting. Good APB muscle firing and good finger cross. Vascular: Capillary refill brisk. ROM: Patient can make a fist and extend all their digits. Skin: No lacerations or abrasions noted. General: No ecchymosis. No erythema or evidence of infection. Assessment & Plan Assessment & Plan (1) Lateral epicondylitis, right elbow: Code(s): M77.11 - Lateral epicondylitis, right elbow Category: Medical (2) Numbness and tingling of right hand: Code(s): R20.0 - Anesthesia of skin; R20.2 - Paresthesia of skin Category: Medical Plan 1. Lateral epicondylitis of right elbow Patient is educated about this condition Patient is educated about the typical recovery course At this time, patient was referred to occupational therapy for treatment of lateral epicondylitis Patient is informed that if 6-8 weeks after starting occupational therapy she is still experiencing significant pain, she can call to make another appointment for our office to discuss alternative treatment options, namely steroid injections Patient was amenable to this plan 2. Numbness and tingling of right hand Symptoms intermittent, daily, worse at night At this time, patient was referred for EMG and nerve conduction study to assess the health of the nerves of the right upper extremity Patient will follow-up after EMG and nerve conduction study for results review and discussion of further treatment options if indicated, sooner with any acute concerns Patient was amenable to this plan Orders: Orders OT Evaluation and Treatment 02/16/24 M77.11 - Lateral epicondylitis, right elbow NE nerve conduction velocity 02/16/24 R20.0 - Anesthesia of skin, R20.2 - Paresthesia of skin NE electromyogram (EMG) 02/16/24 R20.0 - Anesthesia of skin, R20.2 - Paresthesia of skin Coding Level of Care Code New Pt Level 3 (39514) Diagnoses Lateral epicondylitis, right elbow M77.11 Numbness and tingling of right hand R20.0; R20.2
[2024-02-16 14:14] VITALS: BMI 44.8
== END 2024-02-16 14:38 | disposition home or self-care (01) ==
PROVIDERS: PCP Physician Assistant
DX: M77.11 Lateral epicondylitis, right elbow (principal); R20.0 Anesthesia of skin; R20.2 Paresthesia of skin
CPT/HCPCS: 99203

== ENCOUNTER → 2024-02-16 13:54 | Outpatient (BNVA) | payer OTHER, SELFPAY | PROVIDERS: PCP Physician Assistant | DX: M77.11 Lateral epicondylitis, right elbow (principal); R20.0 Anesthesia of skin; R20.2 Paresthesia of skin | CPT/HCPCS: 99202 ==

== ENCOUNTER 2024-02-24 14:50 | Outpatient (AMB) | payer OTHER, SELFPAY ==
--- NOTE | 2024-02-24 14:51 | MHC.PC.OV ---
Vital Signs 02/24/24 14:52 Height 4 ft 8 in Weight 201 lb 4.513 oz BMI 45.1 BP 122/86 Blood Pressure Location Lt brachial Position Sitting Pulse 125 H Pulse Source Pulse Oximeter Pulse Oximetry (%) 95 Oxygen Delivery Method Room Air Intake Visit Reasons: annual exam Intake Note: Patient is here today for a physical. Pickle Sorter Required: No Accompanied by: MANAGER AMBULATORY Allergies trazodone Allergy (Unknown, Verified 02/24/24 15:03) hives zolmitriptan [Zomig] Allergy (Unknown, Verified 02/24/24 15:03) hives zolpidem [Ambien] Allergy (Unknown, Verified 02/24/24 15:03) hives Medication List - Last Reconciled 02/24/24 by Deonte Carmona PA-C acetaminophen ER 1,300 mg (2 x 650 mg) PO Q12H PRN 90 days [adult pull ups As directed] atorvastatin 40 mg PO DAILY bisacodyl (Laxative (bisacodyl)) mg PO bisacodyl 10 mg GA DAILY PRN [id number]-iyiejhmghwqqf-[id number] 50-325-40 mg 1 tab PO Q6H PRN cefuroxime axetil 250 mg PO Q12H 5 days cholecalciferol (vitamin D3) (Vitamin D3) 50 mcg PO DAILY desmopressin 0.1 mg PO BID 90 days [disposable bedpads As directed] disposable gloves As directed disposable gloves As directed docusate sodium (Colace) 100 mg PO BID 30 days doxepin 75 mg PO BID famotidine 40 mg PO BEDTIME ferrous sulfate 325 mg PO DAILY 90 days Gait belt As directed incontinence pad, liner, disp As directed [incontinence wipes As directed] [incontinence wipes As directed] levothyroxine 75 mcg PO 6XW lidocaine 5% (Lidoderm) 1 patch topical DAILY meclizine 25 mg PO DAILY PRN 14 days methylcellulose (laxative) (Fiber Therapy (methylcellulose)) 500 mg PO TID miconazole nitrate (Monistat 3) 1 appful vaginal BEDTIME 3 days mirabegron ER (Myrbetriq) 25 mg PO DAILY miscellaneous medical supply 1 ea miscellaneous BID 90 days miscellaneous medical supply 1 ea miscellaneous DAILY 99 days naproxen 500 mg PO BID 15 days omeprazole 40 mg PO DAILY pregabalin 200 mg PO BID 30 days quetiapine 50 mg PO DAILY quetiapine 200 mg PO DAILY tizanidine 4 mg PO BID 90 days tramadol 50 mg PO BID 30 days venlafaxine ER 150 mg PO DAILY 90 days vitamin B complex (B Complex-Vitamin B12 tablet) 1 tab PO DAILY zaleplon 5 mg PO BEDTIME PRN 30 days Tobacco use date assessed: 08/20/23 Dental Screening Dental Screen Date: 08/20/23 HPI annual exam HPI Details Patient is a 48 year-old female here today for an annual physical . Patient has an extensive past medical history including cerebral palsy, diabetes insipidus, migraines, insomnia, IBS, depression, lumbr spine pain, HLD, , Nephrolithiasis (history of pyelonephritis-requiring nephrostomy tube) Concern--> has recurrent herpes infections. She is interested in suppressive therapy. Will supply patient with Valtrex 500 daily. She also reports having UTI type symptoms. She will get a repeat urinalysis. CHRONIC MEDICAL CONDITIONS--> ? .. ? 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 Patient currently gets 48 hours of MANAGER AMBULATORY services as her cerebral palsy is advanced and has trouble with ambulation and doing ADLs at home. Patient currently uses tramadol and? tizanidine treatment her pains and spasticity secondary to cerebral palsy.? She reports this current regime does manage her pain well. ? ... ? .. ? Hypothyroidism : Is followed by endocrinology and had a recent increase in her levothyroxine to 75 mcg.? Most recent TSH stable2. ?Also patient does have diabetes insipidus to which she takes desmopressin and has been stable. ? .. ? Depression: Patient does see a therapist in [facility], though has lost follow-up with her med provider and gets all of her mental health medications through her PCP. .. Diabetes insipidus: Continues on desmopressin. ? .. ? IBS-constipation type: Patient is chronically using senna due to bouts of constipation due to her IBS.? She has tried senna, Colace, Metamucil, Linzess, Medical magnesia, lactulose all without much relief of her constipation. Colon cancer screen: She does have Cologuard available to her and promises to do this in near future .. 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 [facility] Medical History Herpes simplex Depression Anxiety Diabetes insipidus Cerebral palsy Surgical History History of surgery on lower extremity Hx of appendectomy Family History Father No problems noted. Mother No problems noted. Social History Housing: Apartment Alcohol intake: never Patient Tobacco Use Status: Never used Tobacco e-Cigarette/Vaping Use: Never Used Second Hand Smoke Exposure: No service: No Current occupational status: disabled Current occupational exposures/hazards: No Cognitive needs: Yes (wheel chair ) Hearing needs: No Vision needs: Yes Questionnaire PHQ-9 Over the last 2 weeks, how often have you been bothered by any of the following problems? 1. Little interest or pleasure in doing things: not at all 2. Feeling down, depressed, or hopeless: not at all 3. Trouble falling or staying asleep, or sleeping too much: not at all 4. Feeling tired or having little energy: not at all 5. Poor appetite or overeating: not at all 6. Feeling bad about yourself - or that you are a failure or have let yourself or your family down: not at all 7. Trouble concentrating on things, such as reading the newspaper or watching television: not at all 8. Moving or speaking so slowly that other people could have noticed. Or the opposite - being so fidgety or restless that you have been moving around a lot more than usual: not at all 9. Thoughts that you would be better off or of hurting yourself in some way: not at all Total score: 0 Depression Screening Interpretation: Negative Depression Screening Done: Yes 19232 - PHQ-9 Billing: Yes Source: Developed by Drs. Clayton Meneses, Shailesh Main and colleagues, with an educational josé manuel from [employer]. Thrive Questionnaire Date Thrive assessed: 02/24/24 I am a: Patient What is your living situation today?: I have a steady place to live Within the past 12 months, did the food you bought not last and you didn't have the money to get more?: Never true Within the past 12 months, did you worry whether your food would run out before you got money to buy more?: Never true Do you have trouble paying for medicines?: No Do you have trouble getting transportation to medical appointments?: No Do you have trouble paying your heating and electricity bill?: No Do you have trouble taking care of your child, family member or friend?: No Do you have trouble with day-to-day activities such as bathing, preparing meals, shopping, managing finances, etc.?: No Are you currently unemployed and looking for a job?: No Are you interested in more education?: No Please select the resources that you would like help with: None Currently or been in a relationship where the following occur: No concerns reported THRIVE Score: 0 AUDIT C Alcohol Use Questionnaire (AUDIT-C) 1. How often do you have a drink containing alcohol?: Never 3. How often do you have six or more drinks on one occasion?: Never Total Score: 0 ARMANDO-7 AMB Questionnaire ARMANDO-7 Date ARMANDO - 7 assessed: 02/24/24 Feeling nervous, anxious, or on edge: 0 = Not at all Not being able to stop or control worryin = Not at all Worrying too much about different things: 0 = Not at all Trouble relaxin = Not at all Being so restless that it is hard to sit still: 0 = Not at all Becoming easily annoyed or irritable: 0 = Not at all Feeling afraid as if something awful might happen: 0 = Not at all Total ARMANDO-7 score (0-4 normal; 5-9 mild; 10-14 moderate; 15-21 severe): 0 Source: Developed by Isabel Nolen Kurt Kroenke and colleagues, with an educational josé manuel from [employer]. ARMANDO-7 Assessment Billing ARMANDO-7 Assessment Tool: ARMANDO-7 Assessment 95591 Review of Systems Const Denies body aches, Denies chills, Denies excessive sweating, Denies fatigue, Denies fever(s) and Denies headache(s) Eyes Denies blurry vision ENT Denies dysphagia, Denies vertigo, Denies dizziness, Denies headache(s), Denies hearing loss and Denies tinnitus Card Denies chest pain, Denies chest pain with activity, Denies syncope, Denies irregular heart rhythm and Denies dyspnea Resp Denies chest congestion, Denies cough, Denies hemoptysis, Denies dyspnea and Denies wheezing GI Denies abdominal pain, Denies melena, Denies hematochezia, Denies coffee ground emesis, Denies dysphagia, Denies diarrhea, Denies nausea and Denies vomiting Denies urinary frequency, Denies dysuria, Denies urinary hesitancy and Denies urinary urgency Musc Denies arthralgias, Denies limited range of motion, Denies muscle cramps and Denies muscle weakness Skin/Breast Denies rash and Denies skin ulcer Neuro Denies Abnormal speech present, Denies confusion, Denies vertigo, Denies dizziness, Denies syncope, Denies headache(s), Denies memory loss and Denies seizure-like activity Psych Denies anxiety, Denies confusion, Denies depression, Denies memory loss, Denies panic attacks and Denies paranoia Endo Denies excessive sweating, Denies fatigue, Denies flushing, Denies polydipsia and Denies polyuria Aller/Immun Denies wheezing Physical exam (Primary Care) Vital Signs: Last Vital Signs Pulse 125 H 02/24/24 14:52 BP 122/86 02/24/24 14:52 Pulse Ox 95 02/24/24 14:52 Oxygen Delivery Method Room Air 02/24/24 14:52 BMI result Body Mass Index 45.1 Tobacco/Smoking Status: Tobacco use Status Tobacco use date assessed 08/20/23 02/24/24 14:53 Patient Tobacco Use Status Never used Tobacco 02/24/24 14:53 e-Cigarette/Vaping Use Never Used 02/24/24 14:53 PHQ-9: PHQ-9 Score PHQ-9: Total score 0 02/24/24 15:32 Depression Screening Interpretation: Negative Thrive Assessment: Date of Thrive Assessment Date Thrive assessed 02/24/24 02/24/24 14:53 Currently or been in a relationship where the following occur: No concerns reported Const General: cooperative, comfortable, no acute distress, alert and awake; No confusion Orientation/consciousness: oriented to person, oriented to place, patient oriented x3 and No confusion HENMT Head: Yes normocephalic Ears: external ears normal and TM's normal bilaterally Face and sinus: No sinus tenderness Mouth: Normal oral and palatal mucosa present and tongue normal Teeth and gingiva: dentition normal and gingiva normal Throat: Yes posterior oropharynx normal, Yes tonsils normal and Yes uvula midline Eyes Conjunctivae: conjunctivae normal Sclerae: sclerae normal Pupils: Equal, round and reactive pupils present EOM: EOMs intact bilaterally Direct Ophthalmoscopy: No no photophobia Neck Neck: Yes no lymphadenopathy, No tender and Yes no JVD Thyroid: Thyroid normal Carotids: no bruits Chest Chest palpation & inspection: no tenderness Resp Effort & Inspection: normal respiratory effort, no audible wheezes, not labored and no stridor Auscultation: no crackles, no rales, no rhonchi and no wheezes Cardio Jugular venous distension: no JVD Rate: regular rate, not bradycardic and not tachycardic Rhythm: regular rhythm Bruits: no carotid bruits Peripheral pulses: Peripheral pulses 2+ throughout GI Inspection: Yes normal to inspection, No abdominal wall ecchymosis and No visible herniation Palpation (GI): Soft to palpation, nontender, no guarding, not rigid and No hepatosplenomegaly present Auscultation: normoactive bowel sounds General: Yes no CVA tenderness Back/Spine/Pelvis Back: no CVA tenderness and No back tenderness Cervical Spine: cervical ROM normal Thoracic/Lumbar Spine: thoracic and lumbar spine normal to inspection, straight leg raise negative bilaterally, No thoraco-lumbar ROM limited and No lumbar spinal tenderness Skin Lesions: no lesions Rashes: no rashes Wounds: no wounds Neuro General: oriented to person, oriented to place, patient oriented x3, CN's II-XI intact bilaterally and No confusion Cranial nerves: Yes Equal, round and reactive pupils present and Yes Normal accommodation reflex present Cognition (Neuro): normal cognition Speech: No Abnormal speech present Gait exam (Neuro): Normal gait present Motor exam (neuro): 08/02 motor strength present throughout Extrem Right upper extremity: full ROM; no cyanosis Left upper extremity: full ROM; no cyanosis Right lower extremity: no edema Left lower extremity: no edema Psych Appearance: grossly normal Mental Status: mental status grossly normal Affect: normal affect Attitude: cooperative Thought process: Normal thought process present Office Procedures Flu Questionnaire Does the patient have a severe egg allergy?: No Does the patient have severe life threatening allergies?: No Does the patient have a fever or illness today?: No Has the patient ever had Guillain-Draper Syndrome?: No Has the patient ever had any past reaction to a flu shot?: No Immunizations Fluarix Triv 2220-5334 (PF) 45 mcg (15 mcg x 3)/0.5 mL IM syringe Performing Provider: Deonte Carmona PA-C [facility] [place] [facility] Administered by: AMAN Suarez on 02/24/24 15:32 Dose Route Admin Location Dispensed Lot Number Expiration Date [facility][NOTE 3] Logistics Project Manager 0.5 mL IM Left Deltoid 0.5 mL [id number] 09/27/24 [id number] Inside Secure VIS Given Date VIS Provided VIS Publication Date 02/24/24 Single Vaccine 20 Eligibility Eligibility Date Funding Source Not [facility] Eligible 02/24/24 Private Coding Level of Care Code Est Pt Prev Care 40-64y(66213) Diagnoses Annual physical exam Z00.00 Mixed hyperlipidemia E78.2 Hyperlipidemia type: mixed hyperlipidemia Encounter for screening mammogram for malignant neoplasm of breast Z12.31 Breast cancer screening modality: mammogram Acquired hypothyroidism E03.9 Hypothyroidism type: acquired Cerebral palsy, unspecified type G80.9 Cerebral palsy type: unspecified type Recurrent herpes labialis B00.1 Additional Codes ARMANDO-7 Assessment Billing - ARMANDO-7 Assessment Tool: ARMANDO-7 Assessment 28254 ([id number]) PHQ-9 - 54355 - PHQ-9 Billing: Yes ([id number]) Assessment & Plan Assessment & Plan (1) Annual physical exam: Code(s): Z00.00 - Encounter for general adult medical examination without abnormal findings Category: Medical Plan: as per HPI (2) HLD (hyperlipidemia): Code(s): E78.5 - Hyperlipidemia, unspecified Category: Medical Qualifiers: Hyperlipidemia type: mixed hyperlipidemia Qualified Code(s): E78.2 - Mixed hyperlipidemia Plan: Patient continues with the use of statin therapy. Goal LDL to remain below 130 (3) Breast cancer screening: Code(s): Z12.39 - Encounter for other screening for malignant neoplasm of breast Category: Medical Qualifiers: Breast cancer screening modality: mammogram Qualified Code(s): Z12.31 - Encounter for screening mammogram for malignant neoplasm of breast Plan: Need for screening mammogram (4) Hypothyroid: Code(s): E03.9 - Hypothyroidism, unspecified Category: Medical Qualifiers: Hypothyroidism type: acquired Qualified Code(s): E03.9 - Hypothyroidism, unspecified Plan: Patient followed by respiratory care faculty in [place]. Most recent TSH has been stable. She continues with levothyroxine 75 mcg daily. (5) Cerebral palsy: Comment: W/C Code(s): G80.9 - Cerebral palsy, unspecified Category: Medical Qualifiers: Cerebral palsy type: unspecified type Qualified Code(s): G80.9 - Cerebral palsy, unspecified Plan: Patient is wheelchair dependent. She does have MANAGER AMBULATORY services on a daily basis. (6) Recurrent herpes labialis: Code(s): B00.1 - Herpesviral vesicular dermatitis Category: Medical Plan: Will start suppressive therapy Orders: Orders MM screening mammo BI 02/24/24 Z12.31 - Encounter for screening mammogram for malignant neoplasm of breast TSH reflex Free T4 02/24/24 E03.9 - Hypothyroidism, unspecified Complete Blood Count no Diff 02/24/24 K21.9 - Gastro-esophageal reflux disease without esophagitis Comprehensive [place]. Panel Fast 02/24/24 E78.2 - Mixed hyperlipidemia Lipid Panel 02/24/24 E78.2 - Mixed hyperlipidemia UA CC w/rflx Micro + Cult 02/24/24 N30.00 - Acute cystitis without hematuria, R30.0 - Dysuria Influenza [id number] Immunization 02/24/24 Z23 - Encounter for immunization Medications: New valacyclovir (Valtrex) 500 mg PO DAILY 90 tabs 3RF 90 days B00.1 - Herpesviral vesicular dermatitis
[2024-02-24 14:52] VITALS: BP 122/86; PULSE 125; O2SAT 95; BMI 45.1
== END 2024-02-24 16:09 | disposition home or self-care (01) ==
LOC: HO.HMCH 14:50
PROVIDERS: PCP Physician Assistant; Visit Provider Physician Assistant
DX: Z00.00 Encounter for general adult medical examination without abnormal findings (principal); G80.9 Cerebral palsy, unspecified; E78.2 Mixed hyperlipidemia; Z12.31 Encounter for screening mammogram for malignant neoplasm of breast; E03.9 Hypothyroidism, unspecified; B00.1 Herpesviral vesicular dermatitis

== ENCOUNTER → 2024-02-24 14:50 | Outpatient (BNVA) | payer OTHER, SELFPAY | PROVIDERS: PCP Physician Assistant; Visit Provider Physician Assistant | DX: Z00.00 Encounter for general adult medical examination without abnormal findings (principal); Z23 Encounter for immunization; E78.2 Mixed hyperlipidemia; E03.9 Hypothyroidism, unspecified; G80.9 Cerebral palsy, unspecified; B00.1 Herpesviral vesicular dermatitis | CPT/HCPCS: 90471; 90656; 96127; 99396 ==

== ENCOUNTER 2024-03-19 13:39 | Outpatient (REF) | payer OTHER, SELFPAY ==
--- NOTE | 2024-03-19 13:42 | EMG_ITS ---
Chief complaint: Right hand numbness Reason for referral: Evaluate for Carpal Tunnel Syndrome Referred by: Carlos MARINELLI Procedure done: Right upper extremity NCS/EMG Precautions and/or limitations: None The limb temperature was monitored continuously and remained between 32-36 degrees C during the performance of the NCS. Nerve Conduction Studies Anti Sensory Summary Table ?Stim Site NR Onset (ms) Norm Onset (ms) Peak (ms) Norm Peak (ms) O-P Amp (?V) Norm O-P Amp Site1 Site2 Delta-0 (ms) Dist (cm) Monster (m/s) Norm Monster (m/s) Right Median Anti Sensory (2nd Digit) Wrist ? 2.8 3.5 <3.6 36.4 >10 Wrist 2nd Digit 2.8 14.0 50 Right Ulnar Anti Sensory (5th Digit) Wrist ? 2.3 2.9 <3.7 24.5 >15.0 Wrist 5th Digit 2.3 14.0 61 Motor Summary Table ?Stim Site NR Onset (ms) Norm Onset (ms) O-P Amp (mV) Norm O-P Amp iAmp (mV) Amp (1st) (%) Site1 Site2 Delta-0 (ms) Dist (cm) Monster (m/s) Norm Monster (m/s) Right Median Motor (Abd Poll Brev) Wrist ? 3.4 <3.9 11.2 >4.5 12.5 100.0 Elbow Wrist 3.5 21.0 60 >45 Elbow ? 6.9 10.2 11.7 91.1 Right Ulnar Motor (Abd Dig Minimi) Wrist ? 2.3 <3.0 9.5 >5 12.6 100.0 B Elbow Wrist 3.1 18.0 58 >45 B Elbow ? 5.4 9.0 12.5 94.7 A Elbow B Elbow 0.8 10.0 125 >45 A Elbow ? 6.2 8.5 12.1 89.5 Comparison Summary Table ?Stim Site NR Peak (ms) Norm Peak (ms) P-T Amp (?V) Site1 Site2 Delta-P (ms) Norm Delta (ms) Right Median/Radial Dig I Comparison (Digit 1 - 10cm) Median ? 3.2 <2.9 83.3 Median Radial 0.7 Radial ? 2.5 <2.8 29.3 EMG ?Side Muscle Nerve Root Ins Act Fibs Psw Amp Dur Poly Recrt Int Pat Comment Right 1stDorInt Ulnar C8-T1 Nml Nml Nml Nml Nml 0 Nml Complete Right FlexCarRad Median C6-7 Nml Nml Nml Nml Nml 0 Nml Complete Right Biceps Musculocut C5-6 Nml Nml Nml Nml Nml 0 Nml Complete Right Triceps Radial C6-7-8 Nml Nml Nml Nml Nml 0 Nml Complete Right Deltoid Axillary C5-6 Nml Nml Nml Nml Nml 0 Nml Complete FINDINGS: Increased interlatency difference between right median and radial sensory nerves. Otherwise, all other nerves tested were within normal. Concentric needle EMG was performed in selected muscles of the right upper extremity. Study revealed did not reveal signs of electric abnormalities as shown in the table above. IMPRESSION: 1. This is an abnormal study. 2. There is electrodiagnostic evidence for right very mild/borderline median neuropathy at the wrist, still consistent with carpal tunnel syndrome. 3. There is no electrodiagnostic evidence for ulnar neuropathy, brachial plexopathy, or cervical radiculopathy. Thank you for your kind referral. Gianna Nieves MD, KALYANI Board Certified, [place] Board of Physical Medicine and Rehabilitation (ABPMR) Board Certified, [place] Board of Electrodiagnostic Medicine (ABEM) CODIN [id number] [facility]
== END 2024-03-19 13:40 | disposition home or self-care (01) ==
LOC: HO.NEURO 13:39
PROVIDERS: PCP Physician Assistant
DX: R20.0 Anesthesia of skin (principal); R20.2 Paresthesia of skin
CPT/HCPCS: 95886; 95909

== ENCOUNTER → 2024-03-19 13:42 | Outpatient (BNV) | payer OTHER, SELFPAY | PROVIDERS: PCP Physician Assistant; Visit Provider Physical Medicine & Rehabilitation | DX: G56.01 Carpal tunnel syndrome, right upper limb (principal) | CPT/HCPCS: 95886; 95909 ==

== ENCOUNTER 2024-03-25 12:33 | Outpatient (REF) | payer OTHER, SELFPAY ==
[2024-03-25 12:56] LABS: Hematocrit 38.6 % (37.0-47.0); Mean Corpuscular HGB Conc 33.7 g/dl (31.0-35.0); Mean Corpuscular Hemoglobin 32.8 pg (27.0-33.0); Mean Corpuscular Volume 97.5 fL (80.0-98.0); Mean Platelet Volume 9.6 fL (9.4-12.3); Platelet Count 291 X10*3/uL (160-400); Red Blood Count 3.96 X10*6/uL (4.20-5.50); Red Cell Distribution Width 13.2 % (11.0-16.0); White Blood Count 5.1 X10*3/uL (4.8-10.8)
[2024-03-25 13:19] LABS: Alanine Aminotransferase 42 U/L (0-31); Albumin Level 4.4 g/dL (3.5-5.0); Alkaline Phosphatase 107 U/L (39-117); Anion Gap 14 (12-20); Aspartate Amino Transferase 33 U/L (5-31); Bilirubin Total 0.4 mg/dL (0.0-1.0); Blood Urea Nitrogen 15 mg/dL (9-16); Calcium 9.5 mg/dL (8.4-10.2); Carbon Dioxide 21 mmol/L (22-29); Chloride 108 mmol/L (96-108); Cholesterol 165 mg/dL (<200); Estimated Glomerular Filt Rate > 60; Glucose Fasting 106 mg/dL (60-99); HDL Cholesterol 47 mg/dL (>40); LDL Cholesterol Calculated 57 mg/dL (<100); Potassium 3.8 mmol/L (3.3-5.1); Sodium 139 mmol/L (135-145); Total Protein 7.3 g/dL (6.5-8.0); Triglycerides 308 mg/dL (<150)
[2024-03-25 13:33] LABS: TSH reflex Free T4 1.43 uIU/mL (0.32-4.0)
== END 2024-03-25 12:34 | disposition home or self-care (01) ==
LOC: HO.LAB 12:33
PROVIDERS: Visit Provider Physician Assistant
DX: E78.2 Mixed hyperlipidemia (principal); R30.0 Dysuria; N30.00 Acute cystitis without hematuria; K21.9 Gastro-esophageal reflux disease without esophagitis; E03.9 Hypothyroidism, unspecified
CPT/HCPCS: 36415; 80053; 80061; 84443; 85027

== ENCOUNTER 2024-04-21 11:33 | Outpatient (REF) | payer OTHER, SELFPAY ==
--- NOTE | ~2024-04-21 | US_ITS ---
CLINICAL HISTORY: R74.8 - Abnormal levels of other serum enzymes US abdomen complete Comparison: None Findings: The visualized pancreas is normal. The aorta and inferior vena cava are normal caliber. Enlarged liver measuring 17 cm in length and demonstrating diffuse increased echogenicity. There is no intrahepatic bile duct dilatation. The common duct is 4 mm in diameter. The gallbladder is normal. Sonographic Rabago's sign not assessed. The right kidney is 12.8 cm in length. The left kidney is 11.4 cm in length. Nonobstructive left renal stones measuring up to 11 mm. No hydronephrosis. No renal mass lesion. The spleen is normal. Spleen measures 10.4 cm in length. No ascites. IMPRESSION: Hepatic steatosis. Nonobstructive left renal stones. This document has been electronically signed by: Hanh Noel MD on 04/22/2024 09:32:05
--- OUTSIDE RECORDS SUMMARY | 2024-04-21 13:19 | XMS_ITS | Clinical Summary ---
Author Organization [facility] ity Address [address] [place] [address] Care Team Providers Care Corporate Relations Director Name Role Phone Unavailable Primary Care Provider Unavailabl e Social History Tobacco Use Types Packs/Day Years Used Date Smoking Tobacco: Never Assessed Sex and Gender Information Value Date Recorded Sex Assigned at Not on file Gender Identity Not on file Sexual Orientation Not on file Plan of Treatment Health Maintenance Due Date Last Done Comments Breast Cancer Screening 1973 DTaP,Tdap,and Td Vaccines (1 - Tdap) 1992 Hepatitis B Vaccines (1 of 3 - 19+ 3-dose series) 1992 Cervical Cancer Screening: P ap Smear 1994 Colorectal Cancer Screening: Colonoscopy 02/27/2022 Depression Screening 02/27/2022 HIV Screening 02/27/2022 Hepatitis C Screening 02/27/2022 Social Influencers of Health Screening 02/27/2022 Zoster Vaccines (1 of 2) 09/25/2023 COVID-19 Vaccine ( - 2023-2 5 season) 2023 Influenza Vaccine (#1) 2023 HIB Vaccines Aged Out No longer eligi ble based on patient's age to complete this topic HPV Vaccines Aged Out No longer eligi ble based on patient's age to complete this topic Hepatitis A Vaccines Aged Out No long er eligible based on patient's age to complete this topic IPV Vaccines Aged Out No longer eligi ble based on patient's age to complete this topic MMR Vaccines Aged Out No longer eligi ble based on patient's age to complete this topic Meningococcal ACWY Vaccine Aged Out N o longer eligible based on patient's age to complete this topic Pneumococcal Vaccine: Pediat rics (0 to 5 Years) and At-Risk Patients (6 to 64 Years) Aged Out No longer eligible b ased on patient's age to complete this topic RSV Immunization Patients Un shannan 20 months Aged Out No longer eligible b ased on patient's age to complete this topic Varicella Vaccines Aged Out No longer eligible based on patient's age to complete this topic Advance Directives Documents on File Type Date Recorded 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 Mechanical Technologist Expl anation Health Care Decision (hx) 01/15/2023 AD BRAR DIRECTIVE Health Care Decision (hx) 01/15/2023 AD BRAR DIRECTIVE Health Care Decision (hx) 01/15/2023 AD BRAR DIRECTIVE Health Care Decision (hx) 01/15/2023 AD BRAR DIRECTIVE Health Care Decision (hx) 11/15/2013 AD BRAR DIRECTIVE Health Care Decision (hx) 11/15/2013 AD BRRA DIRECTIVE Health Care Decision (hx) 11/15/2013 AD BRAR DIRECTIVE Health Care Decision (hx) 11/15/2013 AD BRAR DIRECTIVE Health Care Decision (hx) 11/15/2013 AD BRAR DIRECTIVE Health Care Decision (hx) 11/15/2013 AD BRAR DIRECTIVE Health Care Decision (hx) 11/15/2013 AD BRAR DIRECTIVE Health Care Decision (hx) 11/14/2013 AD BRAR DIRECTIVE Health Care Decision (hx) 11/14/2013 AD BRAR DIRECTIVE Health Care Decision (hx) 11/14/2013 AD BRAR DIRECTIVE Health Care Decision (hx) 11/14/2013 AD BRAR DIRECTIVE Health Care Decision (hx) 11/14/2013 AD BRAR DIRECTIVE Health Care Decision (hx) 11/14/2013 AD RBAR DIRECTIVE Health Care Decision (hx) 11/14/2013 AD BRAR DIRECTIVE
== END 2024-04-21 11:34 | disposition home or self-care (01) ==
LOC: HO.US 11:33
PROVIDERS: PCP Physician Assistant; Visit Provider Physician Assistant
DX: R74.8 Abnormal levels of other serum enzymes (principal)
CPT/HCPCS: 76700

== ENCOUNTER → 2024-04-21 11:36 | Outpatient (BNV) | payer OTHER, SELFPAY | PROVIDERS: PCP Physician Assistant; Visit Provider Radiology Diagnostic Radiology | DX: R74.8 Abnormal levels of other serum enzymes (principal) | CPT/HCPCS: 76700 ==

== ENCOUNTER 2024-04-29 13:02 | Outpatient (REF) | payer OTHER, SELFPAY ==
--- OUTSIDE RECORDS SUMMARY | 2024-04-29 16:50 | XMS_ITS | Clinical Summary ---
Author Organization [facility] ity Address [address] [place] [address] Care Team Providers Care Poultry Hanger Name Role Phone Unavailable Primary Care Provider [...] Vaccines (1 of 2) 09/25/2023 COVID-19 Vaccine (1 - 2023-2 5 season) 2023 Influenza Vaccine [...] Documents on File Type Date Recorded Patient Front Facer Expl anation Health Care Decision (hx) 01/15/2023 [...]
== END 2024-04-29 13:03 | disposition home or self-care (01) ==
LOC: HO.MAMMO 13:02
PROVIDERS: PCP Physician Assistant; Visit Provider Physician Assistant
DX: Z12.31 Encounter for screening mammogram for malignant neoplasm of breast (principal)
CPT/HCPCS: 77063; 77067

== ENCOUNTER → 2024-04-29 13:15 | Outpatient (BNV) | payer OTHER, SELFPAY | PROVIDERS: PCP Physician Assistant; Visit Provider Internal Medicine | DX: Z12.31 Encounter for screening mammogram for malignant neoplasm of breast (principal) | CPT/HCPCS: 77063; 77067 ==

== ENCOUNTER 2024-05-14 14:18 | Outpatient (AMB) | payer OTHER, SELFPAY ==
--- OUTSIDE RECORDS SUMMARY | 2024-05-14 14:20 | XMS_ITS | Encounter Summary ---
[facility] Address [address] [place] [address] Care Team Providers Care Big Data Lead Name Role Phone Deonte Carmona Primary Care Provider Reason for Visit * Reason Comments Weakness - Generalized PATIENT COMES IN VIA EMS FROM HOME WITH C/ O WEAKNESS AND DIZZINESS X 2 DAYS. PER EMS PT SATES SHE IS NOT EATING OR DRINKING AND SHE FEELS SHE IS SPINNING IN THE ROOM. * Auth/Cert (Routine) Specialty Diagnoses / Procedures Referred By Contac t Referred To Contact Diagnoses SIRS due to infectious process with acute organ dysfunction (CMS/HCC) Acute cystitis without hematuria Acute urinary retention Procedures . Ezequiel Reeves MD [address] [place] [address] Phone: tel: fax: [facility] [address] [place] [phone] Phone: tel: Referral ID Status Reason Start Date Expiration Date Visits Re quested Visits Authorized [id number] 1 1 Encounter Details Date Type Department Care Team (Latest Contact Info) Description 05/01/2024 4:39 PM EST - 05/05/2024 1:37 PM EST Hospital Encounter [facility] [address] [place] [phone] Lencho Hernandez MD [address] [place] [address] Ezequiel Reeves MD [address] [place] [address] Moses Sewell MD [address] [place] [phone] Acute cystitis without hematuria (Primary Dx); Acute urinary retention; SIRS due to infectious process with acute organ dysfunction (CMS/HCC) Discharge Dis[place] [facility] [place] Tobacco Use Types Packs/Day Years Used Date Smoking Tobacco: Never Smokeless Tobacco: Never Tobacco Cessation:Counseling Given: Not Answered Alcohol Use Standard Drinks/Week Comments Never 0 (1 standard drink = 0.6 oz pur e alcohol) Interpersonal Safety Answer Date Record ed Physical Abuse 05/02/2024 Verbal Abuse 05/02/2024 Comments Unknown Sex and Gender Information Value Date Recorded Sex Assigned at Female 05/01/2024 5:14 PM EST Legal Sex Female 5:08 PM EST Gender Identity Female 05/01/2024 5:14 PM EST Sexual Orientation Not on file documented as of this encounter Last Filed Vital Signs Vital Sign Reading Time Taken Comments Blood Pressure 116/70 05/05/2024 8:47 AM EST Pulse 95 05/05/2024 8:47 AM EST Temperature 36.2 ??C (97.1 ??F) 05/05/2024 8:47 AM ES T Respiratory Rate 20 05/05/2024 8:47 AM EST Oxygen Saturation 97% 05/05/2024 8:47 AM EST Inhaled Oxygen Concentration - - Weight 95.3 kg (210 lb) 05/01/2024 4:49 PM EST Height 146.3 cm (4' 9.6 ) 05/01/2024 4:49 PM EST Body Mass Index 44.5 05/01/2024 4:49 PM EST documented in this encounter Discharge Summaries * Moses Sewell MD - 05/05/2024 3:16 PM EST Images from the original note were not included. DISCHARGE SUMMARY Patient Information Wale Durant : 1975 [48 y.o.] Admitting Provider Ezequiel Reeves MD Discharge Provider Moses Sewell MD, Moses Torres* Primary Care Physician YVES Rowe Admission Date 05/01/2024 Discharge Date 05/05/2024 Discharge disposition-Home Summary of Hospital Problems Primary Discharge Diagnosis: Pyelonephritis, bacteremia Hospital Course Summary Admission HPI from H&P per admitting physician/QUETA- 48 year-old female with past medical history significant for cerebral palsy, diabetes insipidus, hypothyroidism, hyperlipidemia, chronic anemia, and further history below presents with weakness and dizziness. Pt states her symptoms began 2 days ago, but worsened yesterday. She states she has been feeling weak and dizzy as if the room is spinning which caused her to fall today. Pt denies head strike or loss of consciousness, states she fell on her right shoulder. Pt states she has been switchingbetween feeling hot/sweaty and cold, but denies fevers. Pt endorses nausea, no vomiting. Endorses decreased fluid intake. Pt states she has a headache currently which she takes Fiorcet at home for. Pt denies dysuria, endorses urinary frequency. Otherwise, pt denies chest pain, shortness of breath, diarrhea, constipation, hematuria, hematochezia, melena. In ED, pt received 500 mL normal saline bolus, 4 mg IV Zofran, 400 mg PO Magnesium Oxide, 1 g IV Ceftriaxone, 1 g PO Tylenol. Pt was then admitted to the medicine team for further evaluation and treatment. Upon H&P, pt is afebrile, HR 93, RR 18, BP 105/57, spO2 96% RA. Labs: WBC 18.9, pcas 1.30, GFR 50, magbesium 1.8. Troponin 4. UA positive for infection with large blood, positive nitrties, large leukocytes, 1157 WBC, many bacteria. Respiratory virus panel negative. CXR pending formal read. Brief Hospital course 48 year-old female with past medical history significant for cerebral palsy, diabetes insipidus, hypothyroidism, hyperlipidemia, chronic anemia, and further history below presents with weakness and dizziness. Sepsis with bacteremia Due to pyelonephritis, UTI -Presents with tachycardia and significant leukocytosis. Reports increased urinary frequency and generalized weakness. -UA positive for UTI. Urine culture positive for gram-negative bacilli. Blood culture x 2 on 05/01 positive for gram-negative bacilli Klebsiella. -CT scan abdomen pelvis showed left pyelonephritis. -ID consulted; switch to IV ceftriaxone. Plan for discharge on cefdinir 300 mg twice daily with enddate 05/15 Diabetes insipidus-continue with desmopressin Depression, insomnia-Seroquel, venlafaxine, doxepin -Takes zaleplon at home. Unavailable at the pharmacy CP-for spasm tizanidine 4 mg twice daily, pregabalin 200 twice daily Hypothyroidism-Synthroid 75 mics daily. Myrbetriq 25 mg daily Physical Exam at time of Discharge Temp (24hrs), Av.7 ??C (98 ??F), Min:36.2 ??C (97.1 ??F), Max:37.1 ??C (98.7 ??F) Body mass index is 44.5 kg/m??. No results found for: PTWT , PTHT Physical Exam General-patient appears comfortable, no acute distress HEENT-NCAT Eyes-anicteric, squint Cardiology-no significant murmur appreciated Respiratory-no significant wheezing appreciated abdomen-nontender nondistended Extremity-no significant lower extremity edema noted Neurology-has slow responses but awake alert oriented to time place and person Skin-warm and dry Follow-Up Instructions and Recommendations - follow up with PCP outpatient Discharge Medications Medication List TAKE these medications atorvastatin 40 mg tablet Commonly known as: LIPITOR Take 1 tablet (40 mg total) by mouth 1 (one) time each day. cefdinir 300 mg capsule Commonly known as: OMNICEF Take 1 capsule (300 mg total) by mouth 2 (two) times a day for 10 days. desmopressin 0.1 mg tablet Commonly known as: DDAVP Take 1 tablet (0.1 mg total) by mouth 2 (two) times a day. doxepin 75 mg capsule Commonly known as: SINEquan Take 1 capsule (75 mg total) by mouth 2 (two) times a day. famotidine 40 mg tablet Commonly known as: PEPCID Take 1 tablet (40 mg total) by mouth at bedtime. ferrous sulfate 325 mg (65 mg iron) EC tablet Take 1 tablet (325 mg total) by mouth 1 (one) time each day. Myrbetriq 25 mg 24 hr tablet Generic drug: mirabegron Take 1 tablet (25 mg total) by mouth 1 (one) time each day. omeprazole [address] capsule Commonly known as: PriLOSEC Take 1 capsule (40 mg total) by mouth 1 (one) time each day. ondansetron ODT 4 mg disintegrating tablet Commonly known as: ZOFRAN-ODT Dissolve 1 tablet (4 mg total) on top of the tongue every 8 (eight) hours if needed for nausea or vomiting for up to 7 days. polyethylene glycol 17 gram packet Commonly known as: MIRALAX Take 17 g by mouth 1 (one) time each day for 10 days. Start taking on: May 06, 2024 pregabalin 200 mg capsule Commonly known as: LYRICA Take 1 capsule (200 mg total) by mouth 2 (two) times a day. * QUEtiapine 200 mg tablet Commonly known as: SEROquel Take 1 tablet (200 mg total) by mouth at bedtime. * QUEtiapine 50 mg tablet Commonly known as: SEROquel Take 1 tablet (50 mg total) by mouth 1 (one) time each day. tiZANidine 4 mg tablet Commonly known as: ZANAFLEX Take 1 tablet (4 mg total) by mouth 2 (two) times a day if needed for muscle spasms. traMADoL 50 mg tablet Commonly known as: ULTRAM Take 1 tablet (50 mg total) by mouth 2 (two) times a day if needed (breakthrough pain). valACYclovir 500 mg tablet Commonly known as: VALTREX Take 1 tablet (500 mg total) by mouth 1 (one) time each day. venlafaxine XR 150 mg 24 hr capsule Commonly known as: EFFEXOR-XR Take 1 capsule (150 mg total) by mouth 1 (one) time each day. zaleplon 5 mg capsule Commonly known as: SONATA Take 1 capsule (5 mg total) by mouth at bedtime. * This list has 2 medication(s) that are the same as other medications prescribed for you. Read thedirections carefully, and ask your doctor or other care provider to review them with you. Lab Results Component Value Date GLUCOSE 104 (H) 05/05/2024 CALCIUM 8.8 05/03/2024 NA 135 05/03/2024 K 3.7 05/03/2024 CO2 25 05/03/2024 CL 103 05/03/2024 BUN 17 05/03/2024 CREATININE 0.99 05/03/2024 Lab Results Component Value Date WBC 7.2 05/03/2024 HGB 10.5 (L) 05/03/2024 HCT 31.9 (L) 05/03/2024 MCV 99.4 (H) 05/03/2024 PLT 186 05/03/2024 XR Chest 2 Views Result Date: 05/02/2024 PROCEDURE: PA and lateral radiographs of the chest. HISTORY: general weakness. COMPARISON: 01/13/2023. FINDINGS: Hypoventilatory exam. No evidence of pneumonia. Cardiomediastinal contours, pleural spaces, and pulmonary vasculature are normal. Degenerative changes of the spine. Hypoventilatory exam. No acute findings. -------- FINAL REPORT -------- Dictated By: Stefan Ambriz Dictated Date: 05/02/2024 09:30 ET Assigned Physician: Stefan Ambriz Reviewed and ElectronicallySigned By: Stefan Ambriz Signed Date: 05/02/2024 09:34 ET Workstation ID: [id number] TranscribedBy: Self Edit Transcribed Date: 05/02/2024 09:30 ET documented in this encounter Discharge Instructions * Discharge Instructions* Moses Sewell MD - 05/05/2024 8:56 AM EST Changes in your medications are as mentioned below- - take medications as prescribed Special Instructions- - follow up outpatient with PCP If you develop any chest pain, shortness of breath, nausea, vomiting, palpitations, abdominal discomfort, worsening weakness, or any other symptoms then please contact 911. Please contact your primary care physician (family doctor) within 1 week of discharge. If you do not have a primary care provider, please contact one of the following to make arrangements to follow up. Perla Leigh Ann Perla Lansing Perla Andrade Perla Anne documented in this encounter Medications at Time of Discharge atorvastatin (LIPITOR) 40 mg tablet Take 1 tablet (40 mg total) by mouth 1 (one) time each day. cefdinir (OMNICEF) 300 mg capsule Take 1 capsule (300 mg total) by mouth 2 (two) times a day for 10 days. 20 each 05/05/2024 5 desmopressin (DDAVP) 0.1 mg tablet Take 1 tablet (0.1 mg total) by mouth 2 (two) times a day. doxepin (SINEquan) 75 mg capsule Take 1 capsule (75 mg total) by mouth 2 (two) times a day. 10/10/2015 famotidine (PEPCID) 40 mg tablet Take 1 tablet (40 mg total) by mouth at bedtime. ferrous sulfate 325 mg (65 mg iron) EC tablet Take 1 tablet (325 mg total) by mouth 1 (one) time each day. Myrbetriq 25 mg 24 hr tablet Take 1 tablet (25 mg total) by mouth 1 (one) time each day. omeprazole (PriLOSEC) [address] capsule Take 1 capsule (40 mg total) by mouth 1 (one) time each day. polyethylene glycol (MIRALAX) 17 gram packet Take 17 g by mouth 1 (one) time each day for 10 days. 10 packet 05/06/2024 5 pregabalin (LYRICA) 200 mg capsule Take 1 capsule (200 mg total) by mouth 2 (two) times a day. QUEtiapine (SEROquel) 200 mg tablet Take 1 tablet (200 mg total) by mouth at bedtime. QUEtiapine (SEROquel) 50 mg tablet Take 1 tablet (50 mg total) by mouth 1 (one) time each day. 09/25/2018 tiZANidine (ZANAFLEX) 4 mg tablet Take 1 tablet (4 mg total) by mouth 2 (two) times a day if needed for muscle spasms. 04/17/2024 traMADoL (ULTRAM) 50 mg tablet Take 1 tablet (50 mg total) by mouth 2 (two) times a day if needed (breakthrough pain). 10/27/2015 valACYclovir (VALTREX) 500 mg tablet Take 1 tablet (500 mg total) by mouth 1 (one) time each day. 02/24/2024 venlafaxine XR (EFFEXOR-XR) 150 mg 24 hr capsule Take 1 capsule (150 mg total) by mouth 1 (one) time each day. 07/28/2015 zaleplon (SONATA) 5 mg capsule Take 1 capsule (5 mg total) by mouth at bedtime. 09/25/2018 ondansetron ODT (ZOFRAN-ODT) 4 mg disintegrating tablet Dissolve 1 tablet (4 mg total) on top of the tongue every 8 (eight) hours if needed for nausea or vomiting for up to 7 days. 15 tablet 05/05/2024 5 documented as of this encounter Ordered Prescriptions Prescription Sig Dispense Quantity Refills Last Filled Start Date End Date cefdinir (OMNICEF) 300 mg capsule Take 1 capsule (300 mg total) by mouth 2 (two) times a day for 10 days. 20 each 05/05/2024 5 polyethylene glycol (MIRALAX) 17 gram packet Take 17 g by mouth 1 (one) time each day for 10 days. 10 packet 05/06/2024 5 ondansetron ODT (ZOFRAN-ODT) 4 mg disintegrating tablet Dissolve 1 tablet (4 mg total) on top of the tongue every 8 (eight) hours if needed for nausea or vomiting for up to 7 days. 15 tablet 05/05/2024 5 cefdinir (OMNICEF) 300 mg capsule Take 1 capsule (300 mg total) by mouth 2 (two) times a day for 7 days. 14 each 05/05/2024 5 documented in this encounter Discharge Disposition Disposition Code Departure Means Destination Comment s Home-Health Care Svc documented in this encounter Progress Notes * Samira Novak RN - 05/05/2024 3:40 PM EST 05/05/24 1539 Transportation Transportation at discharge [facility] providing transportation [place] What day is the transport expected? 05/05/24 What time is the transport expected? 1630 Final Discharge Disposition Home Health Care Services Pt medically cleared for discharge. Dispo is home with continued [employer] support and VNA. [facility] received call from ОЛЕГ (Nai) that pt has been accepted by [facility]. Ambulance booked for 430PM. Pt is aware of this plan. * Susana Reyez RN - 05/05/2024 2:48 PM EST All discharge instructions reviewed. All new medications sent to patient preferred pharmacy. Educated patient on name, dose, frequency, indication and side effects. Educated patient to complete course of antibiotics even if feeling better. Patient to f/u with PCP within a week. Verbalized understanding of discharge. All questions answered. Patient to be transported home via ambulance at 1630 * Susana Reyez RN - 05/05/2024 9:52 AM EST Problem: Falls: Fall Risk (Adult IP ) Goal: (Goal) Patient will experience maximum safety and reduce risk for falls. Outcome: Progressing Goal: Patient will not fall or injure themselves during hospitalization. Outcome: Progressing Goals: Identify possible barriers to meeting goals/advancing plan of care: nausea, no bowel movements, IVF, Stability of the patient: Moderately Stable - Low risk of patient condition declining or worsening End of Shift Summary: Patient alert, cooperative with plan of care and meds. C/O persistent headache - medicated see MAY. C/O nausea - no vomiting. C/O abd tenderness, distention noted. +BS/flatus. Last BM unknown. made aware. Bowel meds added. Care ongoing at this time. * Moses Sewell MD - 05/05/2024 8:52 AM EST [facility] Provider Response Note PATIENT: WALE DURANT : 1975 ADMIT DATE: 05/01/2024 10:47 PM DISCH DATE: RESPONDING PROVIDER #: [id number] PROVIDER RESPONSE TEXT: The patient has ADILSON. QUERY TEXT: Creatinine 05/01/24 1742 1.30 05/02/24 0624 1.15 05/03/24 0605 0.99 ED Provider Notes 05/01/2024 (4) Dr. Hernandez Metabolic panel shows a glucose of 127 and her creatinine is 1.30 with a GFR of 50 with no prior labs for comparison so I am unsure whether this is chronic or due to dehydration. The patient's clinical indicators include: Options provided: -- ADILSON -- renal insufficiency -- Other - I will add my own diagnosis -- Disagree - Not applicable / Not valid Query created by: Kierra Mejia on 05/04/2024 5:09 PM Electronically signed by: MOSES SEWELL MD 05/05/2024 8:51 AM * Adri Sood RN - 05/05/2024 6:15 AM EST Goals: Identify possible barriers to meeting goals/advancing plan of care: Stability of the patient: Moderately Stable - Low risk of patient condition declining or worsening End of Shift Summary: Patient C/O of SOB. No chest pain or dizziness. Spo2 97% PA aware. Patient was positioned in high benjamin. States she felt better. * Magaly Denise RN - 05/04/2024 6:58 PM EST Goals: Identify possible barriers to meeting goals/advancing plan of care: Final cx Stability of the patient: Moderately Stable - Low risk of patient condition declining or worsening End of Shift Summary: AxOx3, mild tachycardia, weaned off O2, moderate to severe headaches managed with prn analgesics, urinary frequency, seen by PT. No events. Care ongoing. * Moses Sewell MD - 05/04/2024 3:26 PM EST Images from the original note were not included. [facility] PROGRESS NOTE Date: 05/04/2024 Author: Moses Sewell MD Patient ID: Wale Durant is a 48 y.o. female : 1975 MR#: [id number] SUBJECTIVE Subjective Patient seen and examined bedside this morning. Continues to report feeling lousy. Reports flank pain. Objective Allergy- Ambien [zolpidem], Trazodone, and Zolmitriptan OBJECTIVE Vitals: 05/04/24 0900 05/04/24 1100 05/04/24 1400 05/04/24 1430 BP: (!) 143/89 127/84 121/76 BP Location: Right arm Right arm Right arm Patient Position: Lying Lying Lying Pulse: 102 97 100 Resp: 19 18 16 Temp: 37.5 ??C (99.5 ??F) 37.2 ??C (99 ??F) 36.6 ??C (97.9 ??F) TempSrc: Oral Oral Oral SpO2: 99% 96% 96% 94% Weight: Height: Temp (24hrs), Av.8 ??C (98.2 ??F), Min:36.1 ??C (97 ??F), Max:37.5 ??C (99.5 ??F) Physical Exam General-patient appears comfortable, no acute distress HEENT-NCAT Eyes-anicteric Cardiology-no significant murmur appreciated Respiratory-no significant wheezing appreciated abdomen-nontender nondistended Extremity-no significant lower extremity edema noted Neurology-has slow responses but awake alert oriented to time place and person Skin-warm and dry Lab Results: CBC BMP Results from last 7 days Lab Units 05/03/24 0605 05/02/24 0624 05/01/24 1709 WBC AUTO K/mcL 7.2 16.5* 18.9* HEMOGLOBIN g/dL 10.5* 10.7* 12.5 HEMATOCRIT % 31.9* 32.0* 37.2 PLATELETS K/mcL 186 202 253 LYMPHS PCT AUTO % -- 3.8 6.6 MONO PCT AUTO % -- 8.5 8.4 EOS PCT AUTO % -- 0.2 0.8 Results from last 7 days Lab Units 05/03/24 0605 05/02/24 0624 05/01/24 1742 SODIUM mmol/L 135 136 138 POTASSIUM mmol/L 3.7 4.4 4.2 CHLORIDE mmol/L 103 103 104 CO2 mmol/L 25 26 26 ANION GAP 7 7 8 BUN mg/dL 17 18 16 CREATININE mg/dL 0.99 1.15* 1.30* CALCIUM mg/dL 8.8 8.7 9.1 MAGNESIUM mg/dL 1.9 2.0 1.8* PHOSPHORUS mg/dL 2.2* -- -- Results from last 7 days Lab Units 05/03/24 0605 05/02/24 1235 05/02/24 0624 05/01/24 1742 05/01/24 1717 POCT GLUCOSE mg/dL -- 154* -- -- 140* GLUCOSE mg/dL 107* -- 163* 127* -- Results from last 7 days Lab Units 05/01/24 1742 AST unit/L 37 ALT unit/L 53 Scheduled Medications PRN Medications IV Medications acetaminophen, 325 mg, Once atorvastatin, 40 mg, Daily cefTRIAXone, 2 g, q24h desmopressin, 0.1 mg, BID doxepin, 75 mg, BID enoxaparin, 40 mg, q12h DEREK famotidine, 40 mg, Nightly ferrous sulfate, 325 mg, Daily levothyroxine, 75 mcg, q AM AC oxyBUTYnin, 2.5 mg, BID pantoprazole, 40 mg, q AM AC pregabalin, 200 mg, BID QUEtiapine, 200 mg, Nightly QUEtiapine, 50 mg, Daily sodium chloride, 10 mL, BID sodium chloride, 10 mL, Once valACYclovir, 500 mg, Daily venlafaxine XR, 150 mg, Daily acetaminophen, 650 mg, q6h PRN ondansetron (ZOFRAN-ODT) disintegrating tablet, 4 mg, q8h PRN Or ondansetron, 4 mg, q8h PRN prochlorperazine, 10 mg, q6h PRN Or prochlorperazine, 10 mg, q6h PRN Or prochlorperazine, 25 mg, q12h PRN sodium chloride, 10 mL, PRN tiZANidine, 4 mg, BID PRN traMADoL, 50 mg, BID PRN lactated Ringer's, Last Rate: 100 mL/hr (05/04/24 1516) ASSESSMENT & PLAN Assessment/Plan Principal Problem: Acute cystitis without hematuria No problem-specific Assessment & Plan notes found for this encounter. 48 year-old female with past medical history significant for cerebral palsy, diabetes insipidus, hypothyroidism, hyperlipidemia, chronic anemia, and further history below presents with weakness and dizziness. Sepsis with bacteremia Possibly due to UTI -Presents with tachycardia and significant leukocytosis. Reports increased urinary frequency and generalized weakness. -UA positive for UTI. Urine culture positive for gram-negative bacilli. Blood culture x 2 on 05/01 positive for gram-negative bacilli Klebsiella. -CT scan abdomen pelvis showed left pyelonephritis. -ID consulted; switch to IV ceftriaxone. Plan for discharge on cefdinir 300 mg twice daily with enddate 05/15 Diabetes insipidus-continue with desmopressin Depression, insomnia-Seroquel, venlafaxine, doxepin -Takes zaleplon at home. Unavailable at the pharmacy CP-for spasm tizanidine 4 mg twice daily, pregabalin 200 twice daily Hypothyroidism-Synthroid 75 mics daily. Myrbetriq 25 mg daily VTE Prophylaxis: Lovenox Diet: Regular Resuscitation: Full Discharge barrier-pending clinical improvement All labs, imaging, relevant history personally reviewed by me. This dictation was performed using voice recognition software. Word substitution may have occurred and may have gone unnoticed and uncorrected. Reach out to our office for any errors or questions. * Joselyn Hastings - 05/04/2024 2:40 PM EST [facility] Physical Therapy Treatment PT Discharge Recommendations: Other (Comment) (home with [employer] which pt already recieves) Staff Recommendations for safe patient handling: min/modA for transfers/bed mobility, pt has good use of UE Precautions Medical Precautions: Fall Risk RUE Weight Bearing Status: Full LUE Weight Bearing Status: Full RLE Weight Bearing Status: Full LLE Weight Bearing Status: Full History of Present Illness: Patient is a 48 y.o. female admitted to [facility] on 05/01/2024 with: Patient Active Problem List Diagnosis Acute cystitis without hematuria Fall prevention education provided including use of call light in hospital, use of appropriate assistive device, safe mobility techniques, and safety measures at home. Continue PT as per POC. Subjective I am feeling much better today and ready to show you what I can do. Objective 05/04/24 1400 PT Last Visit PT Received On 05/04/24 PT Time Calculation PT Start Time 1400 PT Stop Time 1430 PT Time Calculation (min) 30 min Precautions Medical Precautions Fall Risk RUE Weight Bearing Status Full LUE Weight Bearing Status Full RLE Weight Bearing Status Full LLE Weight Bearing Status Full Vital Signs SpO2 96 % Oxygen Therapy Pulse Oximetry Location Finger Patient Activity Walking Oxygen Therapy None (Room air) Pain Assessment Pain Assessment No/denies pain Cognition Overall Cognitive Status WFL Arousal/Alertness Appropriate responses to stimuli Orientation Level Oriented X4 Following Commands Follows one step commands with increased time Safety Judgment Good awareness of safety precautions Activity Tolerance Endurance Tolerates 10 - 20 min exercise with multiple rests Static Sitting Balance Static Sitting-Level of Assistance Contact guard Static Sitting-Balance Support Right upper extremity supported;Left upper extremity supported Dynamic Sitting Balance Dynamic Sitting-Level of Assistance Minimum assistance Dynamic Sitting-Balance Support Right upper extremity supported;Left upper extremity supported Static Standing Balance Static Standing-Level of Assistance Minimum assistance Static Standing-Balance Support Right upper extremity supported;Left upper extremity supported Bed Mobility Rolling Right Assistance Standby assistance Sitting to Lying Assistance Maximum assistance Lying to Sitting Assistance Moderate assistance Transfers Sit to Stand Assistance Minimum assistance Chair/Bed to Chair/Bed Transfer Assistance Minimum assistance Bed to/from Chair Transfer Technique Stand pivot Ambulation Walking Assistance Minimum assistance Device Rolling walker Distance Ambulated (ft) 3 RUE Assessment RUE Assessment Within Functional Limits LUE Assessment LUE Assessment Within Functional Limits RLE Assessment RLE Assessment Impaired RLE Assessment Comments increased tone R>L, unable to extend knee to neutral, or df to neutral, 2/5 quads LLE Assessment LLE Assessment Impaired LLE Assessment Comments 3-/5 quads, ankle cannot df to neutral Therapeutic Activity Therapeutic Activity Time Entry 30 Therapeutic Activity 1 bed mobility to EOB, stand pivot to chair on R side of bed, rest for 3 min. stand pivot back to EOB and repositioning in supine in bed. 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 Patient left lying supine in bed. RN notified of pt. status, location, response to treatment, and therapy recommendations. 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 Dates: Start: 05/03/24 Expected End: 05/10/24 Outcomes Date/Time User Outcome 05/04/24 1440 Joselyn Hastings Adequate for Discharge Encounter Problems (Resolved) There are no resolved problems. Education Documentation Body Mechanics, taught by Joselyn Hastings at 05/04/2024 2:40 PM. Learner: Patient Readiness: Acceptance Method: Explanation, Demonstration Response: Verbalizes Understanding, Demonstrated Understanding Mobility Training, taught by Joselyn Hastings at 05/04/2024 2:40 PM. Learner: Patient Readiness: Acceptance Method: Explanation, Demonstration Response: Verbalizes Understanding, Demonstrated Understanding Education Comments No comments found. Joselyn Hastings Cosigned by Suni Ingram, PT at 05/04/2024 2:54 PM EST Associated attestation - Nataly Suni, PT - 05/04/2024 2:54 PM EST PT was integrally and physically involved in the decision making, delivery of interventions and ongoing assessment during the patient's care session . * Lizy Danielle MD - 05/04/2024 1:16 PM EST Wale Durant is here for { Weakness - Generalized (PATIENT COMES IN VIA EMS FROM HOME WITH C/ O WEAKNESS AND DIZZINESS X 2 DAYS. PER EMS PT SATES SHE IS NOT EATING OR DRINKING AND SHE FEELS SHE IS SPINNING IN THE ROOM. ) Subjective Feels better, tolerating Abx. Says she feels weak and wants to work with PT. Review of Systems Review of Systems Constitutional: Negative. HENT: Negative. Respiratory: Negative. Cardiovascular: Negative. Gastrointestinal: Negative. Genitourinary: Negative. Musculoskeletal: Negative. Skin: Negative. Neurological: Negative. Physical Examination: Vitals: Visit Vitals BP 127/84 (BP Location: Right arm, Patient Position: Lying) Pulse 97 Temp 37.2 ??C (99 ??F) (Oral) Resp 18 Physical Exam Vitals reviewed. Constitutional: Appearance: Normal appearance. HENT: Head: Normocephalic and atraumatic. Eyes: General: No scleral icterus. Cardiovascular: Rate and Rhythm: Normal rate and regular rhythm. Heart sounds: No murmur heard. No friction rub. No gallop. Pulmonary: Effort: Pulmonary effort is normal. No respiratory distress. Breath sounds: Normal breath sounds. No stridor. No wheezing, rhonchi or rales. Chest: Chest wall: No tenderness. Abdominal: General: Abdomen is flat. Bowel sounds are normal. There is no distension. Palpations: Abdomen is soft. There is no mass. Tenderness: There is no abdominal tenderness. There is no right CVA tenderness, left CVA tenderness, guarding or rebound. Hernia: No hernia is present. Skin: General: Skin is warm and dry. Findings: No rash. Neurological: Mental Status: She is alert. Objective Recent Lab Results: Lab Results Component Value Date WBC 7.2 05/03/2024 RBC 3.20 (L) 05/03/2024 HGB 10.5 (L) 05/03/2024 HCT 31.9 (L) 05/03/2024 MCV 99.4 (H) 05/03/2024 MCHC 32.9 05/03/2024 RDW 13.9 05/03/2024 PLT 186 05/03/2024 MPV 10.8 05/03/2024 NRBC 0.0 05/03/2024 DIFF Lab Results Component Value Date LYMPHOPCT 3.8 05/02/2024 NEUTROABS 14.28 (H) 05/02/2024 LYMPHSABS 0.63 (L) 05/02/2024 MONOABS 1.40 (H) 05/02/2024 EOSABS 0.03 05/02/2024 BASOSABS 0.05 05/02/2024 IMMGRANABS 0.09 (H) 05/02/2024 RETIC No results found for: RETIC , RETICCTPCT Lab Results Component Value Date BLOODCX Klebsiella pneumoniae ssp pneumoniae (AA) 05/01/2024 BLOODCX Klebsiella pneumoniae ssp pneumoniae (AA) 05/01/2024 URINECX (A) 05/01/2024 >100,000 CFU/mL Klebsiella pneumoniae ssp pneumoniae Recent Results (from the past 168 hour(s)) Respiratory virus panel molecular study Collection Time: 05/01/24 5:44 PM Specimen: Nares; Swab Result Value Ref Range Adenovirus Detection by PCR Not Detected Not Detected Influenza A PCR Not Detected Not Detected Influenza B PCR Not Detected Not Detected Coronavirus 229E Not Detected Not Detected Coronavirus HKU1 Not Detected Not Detected Coronavirus OC43 Not Detected Not Detected Coronavirus NL63 Not Detected Not Detected Parainfluenza Virus 1 Not Detected Not Detected Parainfluenza Virus 2 Not Detected Not Detected Parainfluenza Virus 3 Not Detected Not Detected Parainfluenza Virus 4 Not Detected Not Detected RSV PCR Not Detected Not Detected Human Metapneumovirus A and B Not Detected Not Detected Rhinovirus/Enterovirus Not Detected Not Detected Bordetella pertussis Not Detected Not Detected Bordetella parapertussis Not Detected Not Detected Mycoplasma pneumo by PCR Not Detected Not Detected Chlamydia pneumoniae Not Detected Not Detected SARS COV-2 Not Detected Not Detected Urine culture Collection Time: 05/01/24 9:04 PM Specimen: Straight Catheter; Urine Result Value Ref Range Culture, Urine (A) >100,000 CFU/mL Klebsiella pneumoniae ssp pneumoniae Susceptibility Klebsiella pneumoniae ssp pneumoniae - NATALIA Amoxicillin/Clavulanate Susceptible ug/ml Ampicillin/Sulbactam Susceptible ug/ml Piperacillin/Tazobactam Susceptible ug/ml Cefazolin (Urine) Susceptible ug/ml Cefoxitin Susceptible ug/ml Ceftazidime Susceptible ug/ml Ceftriaxone Susceptible ug/ml Cefepime Susceptible ug/ml Meropenem Susceptible ug/ml Amikacin Susceptible ug/ml Gentamicin Susceptible ug/ml Ciprofloxacin Susceptible ug/ml Levofloxacin Susceptible ug/ml Nitrofurantoin Intermediate ug/ml Trimethoprim/Sulfamethoxazole Resistant ug/ml Blood Culture, Peripheral Draw #2 Collection Time: 05/01/24 10:31 PM Specimen: Blood, Venous Result Value Ref Range Culture, Blood Klebsiella pneumoniae ssp pneumoniae (AA) Gram Stain Result Anaerobic bottle Gram negative bacilli (AA) Gram Stain Result Aerobic bottle Gram negative bacilli (AA) Susceptibility Klebsiella pneumoniae ssp pneumoniae - NATALIA Amoxicillin/Clavulanate Susceptible ug/ml Ampicillin/Sulbactam Susceptible ug/ml Piperacillin/Tazobactam Susceptible ug/ml Cefazolin (Other) Susceptible ug/ml Cefoxitin Susceptible ug/ml Ceftazidime Susceptible ug/ml Ceftriaxone Susceptible ug/ml Cefepime Susceptible ug/ml Meropenem Susceptible ug/ml Amikacin Susceptible ug/ml Gentamicin Susceptible ug/ml Ciprofloxacin Susceptible ug/ml Levofloxacin Susceptible ug/ml Trimethoprim/Sulfamethoxazole Resistant ug/ml Blood culture pathogens molecular study Collection Time: 05/01/24 10:31 PM Specimen: Blood, Venous Result Value Ref Range Klebsiella pneumoniae group Detected (A) Not Detected Blood Culture, Peripheral Draw #1 Collection Time: 05/01/24 10:35 PM Specimen: Blood, Venous Result Value Ref Range Culture, Blood Klebsiella pneumoniae ssp pneumoniae (AA) Gram Stain Result Anaerobic bottle Gram negative bacilli (AA) Recent Imaging Findings: CT Abdomen Pelvis w Contrast Result Date: 05/03/2024 Narrative: PROCEDURE: CT ABDOMEN/PELVIS WITH CONTRAST INDICATION: bacteremia, abdominal pain.?source TECHNIQUE: CT of the abdomen and pelvis following the intravenous administration of 90cc Isovue 370. Multiplanar reformats. The examination was performed utilizing dose reduction techniques. Total DLP 1856 COMPARISON: 04/07/2022 FINDINGS: LOWER THORAX: Loss of the left lung base. HEPATOBILIARY: Nofocal liver lesions. No cholelithiasis or biliary duct dilatation. Hepatic steatosis. SPLEEN: No focal lesion. PANCREAS: No focal mass or ductal dilatation. ADRENALS: No nodules. KIDNEYS/URETERS: There is enhancement of the left renal collecting system and proximal ureter with patchy enhancement ofthe left kidney. There are nonobstructing stones in the left kidney and punctate stone on the right. PELVIC ORGANS/BLADDER: Bladder is mildly distended. Left adnexal hypoattenuation could represent asmall cyst. IUD in place. PERITONEUM / RETROPERITONEUM: Left retroperitoneal nodes are presumably reactive. VESSELS: No aneurysm. GI TRACT: No bowel distention or wall thickening. Prominent stool in the ascending colon. BONES AND SOFT TISSUES: Scattered degenerative changes seen throughout the bones. Right gluteal stimulator pack and sacral lead. Impression: There is enhancement of the left renal collecting system with patchy enhancement of theleft kidney suggestive of urinary tract infection and pyelonephritis. There is no obstructing left ureteral stone. There is no drainable abscess. Incidental findings as above.. -------- FINAL REPORT -------- Dictated By: Ursula Solis Dictated Date: 05/03/2024 15:03 ET Assigned Physician: Noe Solisviewed and Electronically Signed By: Ursula Solis Signed Date: 05/03/2024 15:24 ET Workstation ID:[id number] Transcribed By: Self Edit Transcribed Date: 05/03/2024 15:13 ET XR Chest 2 Views Result Date: 05/02/2024 Narrative: PROCEDURE: PA and lateral radiographs of the chest. HISTORY: general weakness. COMPARISON: 01/13/2023. FINDINGS: Hypoventilatory exam. No evidence of pneumonia. Cardiomediastinal contours,pleural spaces, and pulmonary vasculature are normal. Degenerative changes of the spine. Impression: Hypoventilatory exam. No acute findings. -------- FINAL REPORT -------- Dictated By: Stefan Ambriz Dictated Date: 05/02/2024 09:30 ET Assigned Physician: Stefan Ambriz Reviewed and Electronically Signed By: Stefan Ambriz Signed Date: 05/02/2024 09:34 ET Workstation ID: [id number] Transcribed By: Self Edit Transcribed Date: 05/02/2024 09:30 ET Assessment/Plan: Wale Durant is a 48 y.o. female who has a past medical history of Anxiety, Cerebral palsy ([facility]/HCC), Chronic anemia, Depression, Diabetes insipidus (CMS/HCC), Diabetes mellitus (CMS/HCC), GERD (gastroesophageal reflux disease), Hyperlipidemia, Hypertension, Hypothyroidism, Insomnia, and Migraines.. The patient was admitted to the hospital on 05/01/2024 for weakness and dizziness.. The patient told me that she felt extremely weak, denied any dysuria however did endorse urinary frequency is admitting team yesterday. She was started on cefepime, blood cultures turn positive for Klebsiella pneumonia. She is still having high-grade fevers however her leukocytosis is improved. She still feels extremely fatigued. The ID service has been consulted for management during this patient's hospital stay. 1. Sepsis due to Klebsiella bacteremia secondary to pyelonephritis Patient blood cultures turn positive for Klebsiella Fever downtrending Feels better Switched Cefepime to CTX, can be transitioned to PO Cefdinir on DC CT abdomen from our recommendations shows left-sided pyelonephritis Will need antibiotics for 2 weeks hopefully can send her something oral Recommendations: I have switched Cefepime to CTX 2 g 24, once ready for DC can go home on PO Cefdinir 300 mg BID to end on 05/15 Isolation: none ID to sign off I personally spent 35 minutes in this encounter. This included performing a detailed chart review, reviewing and independently interpreting labs ordered by other providers, performing a history and physical, counseling this patient/family, discussing the case with the primary team , coordinating his /her/their plan of care and performing complex medical decision making and placing orders. Please note that this note has been completed with the help of voice recognition dictation software, as such there may be certain words that may be substituted or written in error error based on the voice-recognition tool, please contact me to clarify if any confusion * Adri Sood RN - 05/04/2024 6:20 AM EST Goals: Identify possible barriers to meeting goals/advancing plan of care: Stability of the patient: Moderately Stable - Low risk of patient condition declining or worsening End of Shift Summary: * Susana Reyez RN - 05/03/2024 5:00 PM EST Problem: Falls: Fall Risk (Adult IP ) Goal: (Goal) Patient will experience maximum safety and reduce risk for falls. Outcome: Progressing Goal: Patient will not fall or injure themselves during hospitalization. Outcome: Progressing Goals: Identify possible barriers to meeting goals/advancing plan of care: IV abs, IVF, +BC, ID consult pending. Stability of the patient: Moderately Stable - Low risk of patient condition declining or worsening End of Shift Summary: Patient alert and oriented. Cooperative with plan of care and meds. IVF, IV abx given. Patient c/o sinus headaches - medicated PRN see MAY. T max 102.2 today; given tylenol withgood effect. Verbalizes no other complaints. 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 [place] PROGRESS NOTE Date: 05/03/2024 Author: Moses Sewell MD Patient ID: Wale Durant is a 48 y.o. female : 1975 MR#: [id number] SUBJECTIVE Subjective Patient seen and examined bedside this morning. Febrile with temperature 102 this morning. Patient was given Tylenol. Overnight episodes of fever noted as well. Patient reports feeling lousy and hot.Denies any nausea vomiting palpitation dizziness shortness of breath chest pain however reports some abdominal discomfort on left side. Objective Allergy- Ambien [zolpidem], Trazodone, and Zolmitriptan OBJECTIVE Vitals: 05/03/24 0749 05/03/24 1016 05/03/24 1200 05/03/24 1300 BP: (!) 157/90 BP Location: Patient Position: Pulse: (!) 114 Resp: 20 Temp: 37.8 ??C (100 ??F) (!) 39 ??C (102.2 ??F) 37.4 ??C (99.4 ??F) TempSrc: Oral Oral SpO2: 97% 95% Weight: Height: Temp (24hrs), Av.9 ??C (100.2 ??F), Min:37.1 ??C (98.8 ??F), Max:39 ??C (102.2 ??F) Physical Exam General-patient appears comfortable, no acute distress HEENT-NCAT Eyes-anicteric Cardiology-no significant murmur appreciated Respiratory-no significant wheezing appreciated abdomen-nontender nondistended Extremity-no significant lower extremity edema noted Neurology-has slow responses but awake alert oriented to time place and person Skin-warm and dry Lab Results: CBC BMP Results from last 7 days Lab Units 05/03/24 0605 05/02/24 0605/01/24 1709 WBC AUTO K/mcL 7.2 16.5* 18.9* HEMOGLOBIN g/dL 10.5* 10.7* 12.5 HEMATOCRIT % 31.9* 32.0* 37.2 PLATELETS K/mcL 186 202 253 LYMPHS PCT AUTO % -- 3.8 6.6 MONO PCT AUTO % -- 8.5 8.4 EOS PCT AUTO % -- 0.2 0.8 Results from last 7 days Lab Units 05/03/24 0605 05/02/24 0624 05/01/24 1742 SODIUM mmol/L 135 136 138 POTASSIUM mmol/L 3.7 4.4 4.2 CHLORIDE mmol/L 103 103 104 CO2 mmol/L 25 26 26 ANION GAP 7 7 8 BUN mg/dL 17 18 16 CREATININE mg/dL 0.99 1.15* 1.30* CALCIUM mg/dL 8.8 8.7 9.1 MAGNESIUM mg/dL 1.9 2.0 1.8* PHOSPHORUS mg/dL 2.2* -- -- Results from last 7 days Lab Units 05/03/24 0605 05/02/24 1235 05/02/24 0624 05/01/24 1742 05/01/24 1717 POCT GLUCOSE mg/dL -- 154* -- -- 140* GLUCOSE mg/dL 107* -- 163* 127* -- Results from last 7 days Lab Units 05/01/24 1742 AST unit/L 37 ALT unit/L 53 Scheduled Medications PRN Medications IV Medications acetaminophen, 325 mg, Once atorvastatin, 40 mg, Daily [START ON 05/04/2024] cefepime, 2 g, q12h desmopressin, 0.1 mg, BID doxepin, 75 mg, BID enoxaparin, 40 mg, q12h DEREK famotidine, 40 mg, Nightly ferrous sulfate, 325 mg, Daily levothyroxine, 75 mcg, q AM AC oxyBUTYnin, 2.5 mg, BID pantoprazole, 40 mg, q AM AC pregabalin, 200 mg, BID QUEtiapine, 200 mg, Nightly QUEtiapine, 50 mg, Daily sodium chloride, 10 mL, BID valACYclovir, 500 mg, Daily venlafaxine XR, 150 mg, Daily acetaminophen, 650 mg, q6h PRN ondansetron (ZOFRAN-ODT) disintegrating tablet, 4 mg, q8h PRN Or ondansetron, 4 mg, q8h PRN prochlorperazine, 10 mg, q6h PRN Or prochlorperazine, 10 mg, q6h PRN Or prochlorperazine, 25 mg, q12h PRN sodium chloride, 10 mL, PRN tiZANidine, 4 mg, BID PRN traMADoL, 50 mg, BID PRN lactated Ringer's, Last Rate: 100 mL/hr (05/03/24 1005) ASSESSMENT & PLAN Assessment/Plan Principal Problem: Acute cystitis without hematuria No problem-specific Assessment & Plan notes found for this encounter. 48 year-old female with past medical history significant for cerebral palsy, diabetes insipidus, hypothyroidism, hyperlipidemia, chronic anemia, and further history below presents with weakness and dizziness. Sepsis with bacteremia Possibly due to UTI -Presents with tachycardia and significant leukocytosis. Reports increased urinary frequency and generalized weakness. -UA positive for UTI. Urine culture positive for gram-negative bacilli. Blood culture x 2 on 05/01 positive for gram-negative bacilli most likely Klebsiella pending final culture sensitivity -On cefepime. Continue with IV hydration. CT scan abdomen pelvis ordered; pending ID consult Diabetes insipidus-continue with desmopressin Depression, insomnia-Seroquel, venlafaxine, doxepin -Takes zaleplon at home. Unavailable at the pharmacy CP-for spasm tizanidine 4 mg twice daily, pregabalin 200 twice daily Hypothyroidism-Synthroid 75 mics daily. Myrbetriq 25 mg daily VTE Prophylaxis: Lovenox Diet: Regular Resuscitation: Full Discharge barrier-pending clinical improvement All labs, imaging, relevant history personally reviewed by me. This dictation was performed using voice recognition software. Word substitution may have occurred and may have gone unnoticed and uncorrected. Reach out to our office for any errors or questions. * Joselyn Hastings - 05/03/2024 1:19 PM EST [facility] Physical Therapy Evaluation & Treatment PT Discharge Recommendations: alf facility placement Staff Recommendations for safe patient handling: assist x2 transfers/bed mobility Precautions Medical Precautions: Fall Risk RUE Weight Bearing Status: Full LUE Weight Bearing Status: Full RLE Weight Bearing Status: Full LLE Weight Bearing Status: Full Fall prevention education provided including use of call light in hospital, use of appropriate assistive device, safe mobility techniques, and safety measures at home. PT Received On: 05/03/24 PT Start Time: 1130 PT Stop Time: 1200 PT Time Calculation (min): 30 min Precautions Medical Precautions: Fall Risk RUE Weight Bearing Status: Full LUE Weight Bearing Status: Full RLE Weight Bearing Status: Full LLE Weight Bearing Status: Full Cognition Overall Cognitive Status: Within Functional Limits Arousal/Alertness: Delayed responses to stimuli Orientation Level: Oriented X4 Following Commands: Follows one step commands with repetition, Follows one step commands with increased time Safety Judgment: Decreased awareness of need for assistance, Decreased awareness of need for safety Hearing: Intact Vision: Intact Speech: Intact Integumentary: intact History of Present Illness: Patient is a 48 y.o. female admitted to [facility] on 05/01/2024. Patient Active Problem List Diagnosis Acute cystitis without hematuria Past Medical History: Diagnosis Date Anxiety Cerebral palsy ([facility]) Chronic anemia Depression Diabetes insipidus ([facility]/HCC) Diabetes mellitus ([facility]) GERD (gastroesophageal reflux disease) Hyperlipidemia Hypertension Hypothyroidism Insomnia Migraines Past Surgical History: Procedure Laterality Date APPENDECTOMY OTHER SURGICAL HISTORY Transsphenoidal hypophysectomy OTHER SURGICAL HISTORY Multiple surgeries at [facility] related to cerebral palsy Social History Home Living Environment: Home Living Type of Home: Apartment Lives With: Alone Home Adaptive Equipment: Walker - rolling, Wheelchair-power Home Layout: One level Home Access: Level entry Prior Function Level of Galliano: Independent with mobility and functional transfers Ambulation Status: Household ambulator Receives Help From: car attendant (ADULT [employer]IC STUDIES TEACHER 48hr/wk) Indoor Mobility Assistance: Independent Which is your dominant hand?: Left General Assessment 05/03/24 1200 PT Last Visit PT Received On 05/03/24 PT Time Calculation PT Start Time 1130 PT Stop Time 1200 PT Time Calculation (min) 30 min Precautions Medical Precautions Fall Risk RUE Weight Bearing Status Full LUE Weight Bearing Status Full RLE Weight Bearing Status Full LLE Weight Bearing Status Full Vital Signs Patient Identification Yes SpO2 95 % (w sitting EOB, STS no supp o2) Oxygen Therapy Pulse Oximetry Location Finger Patient Activity At rest Oxygen Therapy Supplemental oxygen O2 Delivery Method Nasal cannula O2 Flow Rate (L/min) 2 L/min Pain Assessment Pain Assessment 0-10 Cognition Overall Cognitive Status WFL Arousal/Alertness Delayed responses to stimuli Orientation Level Oriented X4 Following Commands Follows one step commands with repetition;Follows one step commands with increased time Safety Judgment Decreased awareness of need for assistance;Decreased awareness of need for safety Home Living Type of Home Apartment Lives With Alone Home Adaptive Equipment Walker - rolling;Wheelchair-power Home Layout One level Home Access Level entry Prior Function Level of Gall[place] Independent with mobility and functional transfers Ambulation Status Household ambulator Receives Help From car attendant (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 Left Activity Tolerance Endurance Tolerates less than 10 min exercise, no significant change in vital signs Static Sitting Balance Static Sitting-Level of Assistance Minimum assistance Static Sitting-Balance Support Right upper extremity supported;Left upper extremity supported;Feet supported Dynamic Sitting Balance Dynamic Sitting-Level of Assistance Moderate assistance Dynamic Sitting-Balance Support Right upper extremity supported;Left upper extremity supported Static Standing Balance Static Standing-Level of Assistance Maximum assistance Static Standing-Balance Support Right upper extremity supported;Left upper extremity supported Static Standing-Comment/Number of Minutes unable to stand straight up hunched posture Bed Mobility Rolling Left and Right Assistance Moderate assistance Rolling Left and Right Deficit Assist with left leg;Assist with right leg;Supervision/safety awareness;Increased time to complete;Verbal cueing;Steadying Sitting to Lying Assistance Assist x2 Sitting to Lying Deficit Assist lifting right leg onto bed;Assist lifting left leg onto bed;Assist to lower upper body onto bed;Assist to position upper body Lying to Sitting Assistance Maximum assistance Lying to Sitting Deficit Assist to push upper body to upright;Assist lifting right leg off of bed;Assist lifting left leg off of bed;Assist to scoot to edge of bed Transfers Sit to Stand Assistance Maximum assistance Sit to Stand Deficit Assist for lift off;Assist for foot placement;Assist for trunk control;Increased time to complete;Supervision/safety awareness RUE Assessment RUE Assessment Within Functional Limits LUE Assessment LUE Assessment Within Functional Limits RLE Assessment RLE Assessment Impaired RLE Assessment Comments increased tone R>L, unable to extend knee to neutral, or df to neutral, 2/5 quads LLE Assessment LLE Assessment Impaired LLE Assessment Comments 3-/5 quads, ankle cannot df to neutral PT Assessment PT Assessment Results Decreased strength;Decreased range of motion;Impaired balance;Decreased endurance;Impaired gait;Decreased safety awareness;Impaired judgement Prognosis Good Evaluation/Treatment Tolerance Patient limited by fatigue Comments pt was very tired and became agitated with commands Medical Staff Made Aware Yes Plan Treatment/Interventions ADL retraining;LE strengthening/ROM;UE strengthening/ROM;Functional transfer training;Endurance training;Gait training;Bed mobility PT Plan Skilled PT PT Frequency 2-5 days per week PT Discharge Recommendations alf facility placement PT - Evaluation Status Complete PT Evaluation Time Entry PT Evaluation (Moderate) Time Entry 30 Treatment performed during evaluation: None performed ADDITIONAL COMMENTS: Chart reviewed. RN clears pt for session. Pt agrees to participate and presented in bed upon PT arrival. All lines in place. Gait belt utilized throughout treatment to maximize safety. Medical precautions observed appropriately. Initiated education on the importance of PT, bed mobility safety, Transfer Safety, Ambulation Safety , Therapy Plan of Care, Home Safety, Energy Conservations strategies, and importance of OOB activity . Pt verbalized understanding. EXIT STATUS: Session ended with patient in bed, tray table and call light within reach, and RN made aware. Physical Therapy Assessment/Plan Wale Durant is a 48 y.o. female admitted to [facility] on 05/01/2024 for SIRS due to infectious process with acute organ dysfunction (CMS/HCC) [A41.9, R65.20] Acute cystitis without hematuria [N30.00] Acute urinary retention [R33.8] . Pt presents with decreased BLE strength, balance deficits, decreased activity tolerance, and far below functional baseline. Pt performed bed mobility Moderate assistand Maximal assist, Bedrail, HOB elevated, and Therapist assist, Transfers with Moderate assist andMaximal assist, FWW and does not ambulate. Pt will benefit from skilled acute PT during hospital stay to improve the deficits listed above and optimize function. PT recommends alf facility placement when medically stable for safe discharge and to optimize functional mobility and independence. Goals Encounter Problems Encounter Problems (Active) Template: Physical Therapy Problem: PT Short Term Goals Dates: Start: 05/03/24 Goal: Pt will be able to transfer from EOB to chair with supervision and walker. Dates: Start: 05/03/24 Expected End: 05/10/24 Encounter Problems (Resolved) There are no resolved problems. Education Documentation Body Mechanics, taught by Joselyn Hastings at 05/03/2024 1:18 PM. Learner: Patient Readiness: Acceptance Method: Explanation, Demonstration Response: Needs Reinforcement Comment: pt understands she needs to get better and work with therapy to go home, but does not wantto put in the work to do it Mobility Training, taught by Joselyn Hastings at 05/03/2024 1:18 PM. Learner: Patient Readiness: Acceptance Method: Explanation, Demonstration Response: Needs Reinforcement Comment: pt understands she needs to get better and work with therapy to go home, but does not wantto put in the work to do it Education Comments No comments found. Joselyn Hastings Cosigned by Suni Ingram PT at 05/03/2024 1:53 PM EST Associated attestation - Suni Ingram PT - 05/03/2024 1:53 PM EST PT was integrally and physically involved in the decision making, delivery of interventions and ongoing assessment during the patient's care session . * Oksana Spivey RN - 05/03/2024 3:09 AM EST Problem: Falls: Fall Risk (Adult IP BH) Goal: (Goal) Patient will experience maximum safety and reduce risk for falls. Outcome: Progressing Goal: Patient will not fall or injure themselves during hospitalization. Outcome: Progressing Problem: Skin Integrity: Pressure Injury Actual or Risk of Goal: Will not develop new pressure injury Outcome: Progressing Goal: Skin integrity will improve Outcome: Progressing Goal: Risk for impaired skin integrity will decrease Outcome: Progressing Problem: Activity:Pressure Injury Actual or Risk of Goal: Mobility will improve Outcome: Progressing Problem: Nutritional:Pressure Injury Actual or Risk of Goal: Nutritional status will improve Outcome: Progressing Problem: Patient Specific Problem: Pressure Injury Actual or Risk of Goal: Patient Specific Outcome Outcome: Progressing Goals: Improve overall strength and resolve infection: sepsis -UTI Identify possible barriers to meeting goals/advancing plan of care: Pt has had fevers overnight; septic - + BC Stability of the patient: Moderately Unstable - Medium risk of patient condition declining or worsening End of Shift Summary: Pt alert and oriented; minimal c/o generalized body aches. Pt has had fevers overnight; the highest temp was 102.2 @2330 . Tylenol, IVP toradol and cool compresses and cool washcloth for forehead. VSS. IVF infusing.Temp had broken; taken during early am was 98.8. Bedrest maintained; using bedpan; voiding well. Sleeping at this time. * Moses Sewell MD - 05/02/2024 4:21 PM EST Images from the original note were not included. [facility] PROGRESS NOTE Date: 05/02/2024 Author: Moses Sewell MD Patient ID: Wale Durant is a 48 y.o. female : 1975 MR#: [id number] SUBJECTIVE Subjective Patient seen and examined bedside this morning. She was hypotensive this morning with systolic pressure in the 80s and diastolic in 60s. She reported some dizziness however this dizziness has been going on for few days now. Denies any new complaints. Denies any chest pain shortness of breath nauseavomiting. Rapid response was called this afternoon and see separate note for that Objective Allergy- Ambien [zolpidem], Trazodone, and Zolmitriptan OBJECTIVE Vitals: 05/02/24 0937 05/02/24 1331 05/02/24 1443 05/02/24 1450 BP: 108/70 135/74 134/74 BP Location: Patient Position: Pulse: 88 (!) 120 (!) 120 Resp: 18 18 Temp: 36.7 ??C (98 ??F) 37.7 ??C (99.9 ??F) 37.7 ??C (99.9 ??F) TempSrc: Oral Oral SpO2: 95% 96% 96% Weight: Height: Temp (24hrs), Av.7 ??C (98.1 ??F), Min:35.7 ??C (96.2 ??F), Max:37.7 ??C (99.9 ??F) Physical Exam General-patient appears comfortable, no acute distress HEENT-NCAT Eyes-anicteric Cardiology-no significant murmur appreciated Respiratory-no significant wheezing appreciated abdomen-nontender nondistended Extremity-no significant lower extremity edema noted Neurology-has slow responses but awake alert oriented to time place and person Skin-warm and dry Lab Results: CBC BMP Results from last 7 days Lab Units 05/02/24 0624 05/01/24 1709 WBC AUTO K/mcL 16.5* 18.9* HEMOGLOBIN g/dL 10.7* 12.5 HEMATOCRIT % 32.0* 37.2 PLATELETS K/mcL 202 253 LYMPHS PCT AUTO % 3.8 6.6 MONO PCT AUTO % 8.5 8.4 EOS PCT AUTO % 0.2 0.8 Results from last 7 days Lab Units 05/02/24 0624 05/01/24 1742 SODIUM mmol/L 136 138 POTASSIUM mmol/L 4.4 4.2 CHLORIDE mmol/L 103 104 CO2 mmol/L 26 26 ANION GAP 7 8 BUN mg/dL 18 16 CREATININE mg/dL 1.15* 1.30* CALCIUM mg/dL 8.7 9.1 MAGNESIUM mg/dL 2.0 1.8* Results from last 7 days Lab Units 05/02/24 1235 05/02/24 0624 05/01/24 1742 05/01/24 1717 POCT GLUCOSE mg/dL 154* -- -- 140* GLUCOSE mg/dL -- 163* 127* -- Results from last 7 days Lab Units 05/01/24 1742 AST unit/L 37 ALT unit/L 53 Scheduled Medications PRN Medications IV Medications acetaminophen, 325 mg, Once atorvastatin, 40 mg, Daily cefepime, 2 g, q8h desmopressin, 0.1 mg, BID doxepin, 75 mg, BID enoxaparin, 40 mg, q12h DEREK famotidine, 40 mg, Nightly ferrous sulfate, 325 mg, Daily oxyBUTYnin, 2.5 mg, BID pantoprazole, 40 mg, q AM AC pregabalin, 200 mg, BID QUEtiapine, 200 mg, Nightly QUEtiapine, 50 mg, Daily sodium chloride, 10 mL, BID valACYclovir, 500 mg, Daily venlafaxine XR, 150 mg, Daily acetaminophen, 650 mg, q6h PRN ondansetron (ZOFRAN-ODT) disintegrating tablet, 4 mg, q8h PRN Or ondansetron, 4 mg, q8h PRN prochlorperazine, 10 mg, q6h PRN Or prochlorperazine, 10 mg, q6h PRN Or prochlorperazine, 25 mg, q12h PRN sodium chloride, 10 mL, PRN tiZANidine, 4 mg, BID PRN traMADoL, 50 mg, BID PRN lactated Ringer's, Last Rate: 100 mL/hr (05/02/24 1327) ASSESSMENT & PLAN Assessment/Plan Principal Problem: Acute cystitis without hematuria No problem-specific Assessment & Plan notes found for this encounter. 48 year-old female with past medical history significant for cerebral palsy, diabetes insipidus, hypothyroidism, hyperlipidemia, chronic anemia, and further history below presents with weakness and dizziness. Sepsis with bacteremia Possibly due to UTI -Presents with tachycardia and significant leukocytosis. Reports increased urinary frequency and generalized weakness. -UA positive for UTI. Urine culture positive for gram-negative bacilli. Blood cultures x 2 on 05/01 positive for gram-negative bacilli. -Switch antibiotic to cefepime. Continue with IV hydration. Due to hypotension IV fluid bolus was given as well. Continue monitoring Diabetes insipidus-continue with desmopressin Depression, insomnia-Seroquel, venlafaxine, doxepin -Takes zaleplon at home. Unavailable at the pharmacy CP-for spasm tizanidine 4 mg twice daily, pregabalin 200 twice daily Hypothyroidism-Synthroid 75 mics daily. Myrbetriq 25 mg daily VTE Prophylaxis: Lovenox Diet: Regular Resuscitation: Full Discharge barrier-pending clinical improvement All labs, imaging, relevant history personally reviewed by me. This dictation was performed using voice recognition software. Word substitution may have occurred and may have gone unnoticed and uncorrected. Reach out to our office for any errors or questions. * Clementina Vernon RN - 05/02/2024 4:17 PM EST 05/02/24 1616 Initial Transition Plan Initial Transition Plan Home Discharge Planning Living Arrangements Other (Comment) ([employer] services 49 hours per week.) Assistive Devices Wheelchair;Walker Medication Coverage Has Med Coverage Under Insurance Plan Yes Medication Affordability No concerns related to payment for meds Informed Choice Informed Choice Given? Yes Transportation Transportation at discharge Ambulance I met with patient with regards to d/c planning. Patient lives alone in an apartment. Patient uses a walker/wheelchair. Pharmacy is [facility]. Patient has [employer] services 49 hours per week. Patient declines need for VNA at this time. Patient states that she will need an ambulance upon d/c . Barrier to d/c: sepsis/acute cystitis, IV abx, IVF, urine cx, CT abd/pelvis, fall, PT eval Dispo: home with [employer] 49 hrs /week, will need ambulance upon d/c * Moses Sewell MD - 05/02/2024 4:16 PM EST Rapid response was called at around 12:45 PM today due to concern of patient's concerning appearance. According to patient's nurse it looks like she was having rigors and cyanotic lips. Previously in the morning patient had been hypotensive and was given IV fluid bolus and blood pressure had improved. Patient was seen bedside during rapid response. She reported headache but denies any chest pain shortness of breath nausea vomiting palpitation dizziness. -Vitals were checked which showed O2 saturation in mid 90s around 94 to 95% on room air and BP was 136 systolic. -cardiac monitor technician showed sinus tach with heart rate in low 110s. -On physical exam patient was able to follow commands and responding appropriately. No cyanotic lips or peripheries noted. -Decision was made to continue current management including IV fluid and give Fioricet since patient takes these for headache at home. Spent 35 minutes in critical care of this patient * Shannon Garcia RN - 05/02/2024 1:02 PM EST Pt had rigors, lips cyanotic . Bp 95/60. Hr 110. Rapid response called. Team arrived. Placed pt on oxygen as o2 sat was 91. Bp improved to 136/96. Oral temp 99.7. dr sewell ordered fiorcet for pts migraine. Will monitor. Ivf infusing as ordered. * Suni Ingram PT - 05/02/2024 10:46 AM EST Therapy session was attempted for Wale Durant by Suni Ingram PT on 05/02/2024. The patient wasunable to be seen for the following reason(s): Other: spoke with nurse Shannon who states the pt BP has been low and she has testing to be done today so to hold eval Plan for return visit: Tomorrow * Oksana Spivey RN - 05/02/2024 3:55 AM EST Goals: To improve strength to be able to return to baseline Identify possible barriers to meeting goals/advancing plan of care: Pt has hx of CP; weakness to BLE and BUE; lives alone Stability of the patient: Moderately Unstable - Medium risk of patient condition declining or worsening End of Shift Summary: Pt alert and oriented; cooperative with care. Reported back pain and an headache. PRRN tramadol and fiorcet were given with good effect. LR infusing@100mL/hr. VSS No c/o dizziness or vertigo overnight. 2A T&R; using bedpan. Resting at this time. * Tato Faustin RN - 05/01/2024 11:46 PM EST ED RN HANDOFF (All Cervantes Below Must Be Completed) Reason/Diagnosis for Admission: ACUTE CYSTITIS WITHOUT HEMATURIA. Type of Admission: [x] Medsurg, [] Telemetry Already in a Hospital Bed: [] Yes / [x] No Room Considerations/Precautions (ex: fever, diarrhea, or any infectious concerns): [] Yes / [x] No Asthma Educator: [] Yes / [x] No If YES, Cardiac Rhythm: [] NSR, [] SB, [] ST, [] A-FIB, [] A-Flutter, [] Pacemaker, [] 1st Degree HB, [] 2nd Degree HB, [] 3rd Degree HB Reason for Asthma Educator: VS: Visit Vitals BP 105/57 (BP Location: Right arm, Patient Position: Lying) Pulse 93 Temp 36.4 ??C (97.5 ??F) (Oral) Resp 18 Ht 1.463 m (57.6 ) Wt 95.3 kg (210 lb) SpO2 96% BMI 44.50 kg/m?? Smoking Status Never BSA 1.85 m?? Current Mental Status: A/O x [x]4, []3, []2, []1 Current Ambulation Status: currently bedrest. Use bedpan. Able to turns from side to side. IV Access: [x] Yes / [] No Field IV present: [] Yes / [x] No Hx of Violence: [] Yes / [x] No / [] Unknown Fall Risk:[x] Yes / [] No Yellow Bracelet Applied [x] Yes / [] No Yellow Socks Applied [] Yes / [] No Patient Belongings inventoried and BL completed: [x] Yes / [] No Patient belongings stored in the security closet: [] Yes (If Yes please supply Security bag #): [x] No Patient Medications stored in Pharmacy: [] Yes (If Yes please supply Medication Security bag #): [x] No Tato Faustin RN 05/01/24 2348 Tato Faustin RN 05/02/24 0000 * Tonia Chan RN - 05/01/2024 4:46 PM EST PATIENT COMES IN VIA EMS FROM HOME WITH C/ O WEAKNESS AND DIZZINESS X 2 DAYS. PER EMS PT SATES SHE IS NOT EATING OR DRINKING AND SHE FEELS SHE IS SPINNING IN THE ROOM. * Lencho Hernandez MD - 05/01/2024 4:33 PM EST Emergency Medicine History and Physical Patient Name: Wale Durant Initial Evaluation: 05/01/2024 : 1975 Patient's PCP: [facility] Rowe Emergency Physician: Lencho Hernandez MD History of Present Illness Chief Complaint: Chief Complaint Patient presents with ??? Weakness - Generalized PATIENT COMES IN VIA EMS FROM HOME WITH C/ O WEAKNESS AND DIZZINESS X 2 DAYS. PER EMS PT SATES SHE IS NOT EATING OR DRINKING AND SHE FEELS SHE IS SPINNING IN THE ROOM. Chief Complaint Patient presents with ??? Weakness - Generalized PATIENT COMES IN VIA EMS FROM HOME WITH C/ O WEAKNESS AND DIZZINESS X 2 DAYS. PER EMS PT SATES SHE IS NOT EATING OR DRINKING AND SHE FEELS SHE IS SPINNING IN THE ROOM. HPI: This is a 48-year-old female who comes in from home by ambulance because of dizziness without vertigo. The patient states she has been very weak for the last 2 days and felt once at home today. She lives alone and has an aide. Patient ambulates with a walker. She denies any recent fever or chills but says she has felt hot and cold at times. She has somewhat of a headache. No ear pain. No true vertigo. No sore throat or runny nose. No chest pain or cough. No dyspnea. She has nausea but no vomiting and decreased appetite. She notes that she has developed urinary incontinence and is having urinary frequency without dysuria. Patient states she lives alone but has an aide. She has a history of cerebral palsy with disconjugate eye movements, diabetes insipidus, kidney stones, hypothyroidism, hyperlipidemia and anemia and she is on iron pills. She said that her glucose earlier today was 200 and on recheck in the emergencydepartment today gets 140 ROS: I have performed a complete ROS with the pertinent positives and negatives documented in the history of present illness. All other systems are negative. Previous History Past Medical History: Diagnosis Date ??? Depression ??? Diabetes mellitus (CMS/HCC) ??? Hypertension History reviewed. No pertinent surgical history. Social History Tobacco Use ??? Smoking status: Never ??? Smokeless tobacco: Never No family history on file. is allergic to ambien [zolpidem], trazodone, and zolmitriptan. No current facility-administered medications on file prior to encounter. No current outpatient medications on file prior to encounter. Physical Exam ED Triage Vitals Temp Pulse Resp BP -- -- -- -- SpO2 Temp src Heart Rate Source Patient Position -- -- -- -- BP Location FiO2 (%) -- -- General: The patient is on the stretcher comfortably during the beginning of the exam. No acute distress. Elevated BMI HEENT: Head is atraumatic, normocephalic. Somewhat disconjugate gaze with her right eye deviating laterally. She does not seem to be able to look past the midline with her right eye. She said this ischronic and she primarily sees from her left eye. Neck is supple and nontender. Mucous membranes are moist. Cardiovascular: Regular rate and rhythm. No murmurs, rubs, or gallops. S1, S2 is present. Respiratory: Clear to auscultation bilaterally. No wheezes, rubs, rhonchi, or rales. No increased work of breathing. Extremities: The patient is moving all 4 extremities spontaneously. No obvious deformities. Musculoskeletal: No gross deformities. Abdomen: Soft and nontender. No rebound, guarding, or distention. No masses or organomegaly felt. Neuro: Mental status normal. Cranial nerves II through XII are grossly intact. Psych: Awake and alert. Normal affect. Skin: Warm, dry, and intact. No rashes or lesions seen on exposed skin. Lymph: No palpable lymphadenopathy. Results Labs Reviewed BASIC METABOLIC PANEL - Abnormal Result Value Sodium 138 Potassium 4.2 Chloride 104 CO2 26 Anion Gap 8 Glucose 127 (*) BUN 16 Creatinine 1.30 (*) eGFR 50 (*) BUN/Creatinine Ratio 12.3 Calcium 9.1 MAGNESIUM - Abnormal Magnesium 1.8 (*) CBC WITH AUTO DIFFERENTIAL - Abnormal WBC 18.9 (*) RBC 3.80 Hemoglobin 12.5 Hematocrit 37.2 MCV 97.1 MCH 32.6 (*) MCHC 33.6 RDW 14.0 Platelets 253 MPV 10.3 NRBC 0.0 NRBC Absolute 0.00 Neutrophils Relative 83.0 Lymphocytes Relative 6.6 Monocytes Relative 8.4 Eosinophils Relative 0.8 Basophils Relative 0.4 Immature Granulocytes Relative 0.8 Neutrophils Absolute 15.66 (*) Lymphocytes Absolute 1.24 Monocytes Absolute 1.59 (*) Eosinophils Absolute 0.16 Basophils Absolute 0.08 Immature Granulocytes Absolute 0.15 (*) HEPATIC FUNCTION PANEL - Abnormal Total Protein 6.4 Albumin 3.4 Total Bilirubin 1.3 Bilirubin, Direct 0.6 (*) Bilirubin, Indirect 0.7 ALT (SGPT) 53 AST (SGOT) 37 Alkaline Phosphatase 118 POCT GLUCOSE, BLOOD - Abnormal Glucose POCT 140 (*) RESPIRATORY VIRUS PANEL MOLECULAR STUDY - Normal Adenovirus Detection by PCR Not Detected Influenza A PCR Not Detected Influenza B PCR Not Detected Coronavirus 229E Not Detected Coronavirus HKU1 Not Detected Coronavirus OC43 Not Detected Coronavirus NL63 Not Detected Parainfluenza Virus 1 Not Detected Parainfluenza Virus 2 Not Detected Parainfluenza Virus 3 Not Detected Parainfluenza Virus 4 Not Detected RSV PCR Not Detected Human Metapneumovirus A and B Not Detected Rhinovirus/Enterovirus Not Detected Bordetella pertussis Not Detected Bordetella parapertussis Not Detected Mycoplasma pneumo by PCR Not Detected Chlamydia pneumoniae Not Detected SARS COV-2 Not Detected Narrative: Testing was performed using the Portable Internet Respiratory Pathogen PCR Assay. All results must be correlated with the clinical findings. Results should not be used as the sole basis for diagnosis. False Negative results may occur from the presence of sequence variants in the region targeted by the assay or the presence of inhibitors. Results may be affected by concurrent antiviral/antimicrobial therapy or levels of organisms that are below the limit of detection. THYROID STIMULATING HORMONE WITH REFLEX TO FREE T4 AND FREE T3 - Normal TSH 0.84 TROPONIN I HIGH SENSITIVITY - Normal High Sensitivity Troponin I 4 Narrative: High levels of biotin in samples may falsely decrease hsTroponin values. Use caution when interpreting hsTroponin results in patients taking biotin who exhibit renal impairment (eGFR <60) or in patients taking more than 20 mg/day of biotin. CBC AND DIFFERENTIAL Narrative: The following orders were created for panel order CBC and differential. Procedure Abnormality Status --------- ------ CBC auto differential[[id number]] Abnormal Final result Please view results for these tests on the individual orders. URINALYSIS WITH REFLEX MICROSCOPIC Narrative: The following orders were created for panel order Urinalysis with reflex microscopic. Procedure Abnormality Status --------- ------ Urinalysis with reflex ...[[id number]] Please view results for these tests on the individual orders. URINALYSIS WITH REFLEX MICROSCOPIC POCT GLUCOSE, BLOOD Abnormal Labs Reviewed BASIC METABOLIC PANEL - Abnormal; Notable for the following components: Result Value Glucose 127 (*) Creatinine 1.30 (*) eGFR 50 (*) All other components within normal limits MAGNESIUM - Abnormal; Notable for the following components: Magnesium 1.8 (*) All other components within normal limits CBC WITH AUTO DIFFERENTIAL - Abnormal; Notable for the following components: WBC 18.9 (*) MCH 32.6 (*) Neutrophils Absolute 15.66 (*) Monocytes Absolute 1.59 (*) Immature Granulocytes Absolute 0.15 (*) All other components within normal limits HEPATIC FUNCTION PANEL - Abnormal; Notable for the following components: Bilirubin, Direct 0.6 (*) All other components within normal limits POCT GLUCOSE, BLOOD - Abnormal; Notable for the following components: Glucose POCT 140 (*) All other components within normal limits XR Chest 2 Views (Results Pending) The laboratory results, imaging results and other diagnostic exam results were reviewed in the EMR. EKG Interpretation EKG shows a sinus tachycardia 110 with a T wave inversion in leads V1, V2 and V3. This is similar to an EKG dated 01/14/2023 Critical Care Time None Medical Decision Making Medications ondansetron (PF) (ZOFRAN) injection 4 mg (4 mg intravenous Given 05/01/241900) sodium chloride 0.9 % bolus 500 mL (0 mL intravenous Stopped 05/01/241930) magnesium oxide (MAG-OX) tablet 400 mg (400 mg oral Given 05/01/241899) Differential diagnosis: Urinary tract infection Viral syndrome Anemia Hyper/hypoglycemia Hyper/hypokalemia Hypomagnesemia Lab test, chest x-ray and EKG will be ordered. Patient will be given IV fluid and Zofran ED Course as of 05/02/24 0028 Sat May 01, 2024 1830 Lab test show an elevated white blood cell count of 18,000 with a slight left shift. Hemoglobin is 12.5. Liver function tests are normal. Metabolic panel shows a glucose of 127 and her creatinine is 1.30 with a GFR of 50 with no prior labs for comparison so I am unsure whether this is chronic or due to dehydration. Her magnesium level is low at 1.8 and this will be repleted with oral magnesium. Troponin is normal at 4 [GM] 195 Chest x-ray was reviewed by me and not officially read yet. I do not see any evidence of an infiltrate. Her viral panel is negative. We are still awaiting the results of a urinalysis [GM] 2043 I was advised that the patient had a bladder scan because she has not been able to urinate. She had a volume of around 230 cc so I ordered a straight cath [GM] 2216 Urinalysis shows 1+ protein with 1157 white blood cells and many bacteria. Patient will be given 1 g ceftriaxone IV [GM] 2220 A blood culture will also be ordered. Since the patient now has urinary retention plus a UTI with leukocytosis, this could be an early sepsis. A consult will be placed with the hospitalist for admission [GM] ED Course User Index [GM] Lencho Hernandez MD Clinical Impressions as of 05/02/24 0028 Acute cystitis without hematuria Acute urinary retention SIRS due to infectious process with acute organ dysfunction ([facility]) Procedures Procedures Diagnosis No diagnosis found. Disposition Data Unavailable 05/01/2024 4:39 PM No discharge date for patient encounter. ED Prescriptions None Physician Attestation Lencho Hernandez MD 05/01/24 1744 Lencho Hernandez MD 05/01/241958 Lencho Hernandez MD 05/01/242110 Lencho Hernandez MD 05/02/24 0028 documented in this encounter H&P Notes * YVES See - 05/02/2024 12:57 AM EST Images from the original note were not included. [facility] PH[facility] Please contact author [YVES See] via [employer]. Patient: Wale Durant Admission Date/Time: 05/01/2024 4:39 PM : 1975 [48 y.o.] Patient's PCP: YVES Rowe Attending Provider: Ezequiel Reeves MD CHIEF COMPLAINT Weakness, dizziness HISTORY OF PRESENT ILLNESS 48 year-old female with past medical history significant for cerebral palsy, diabetes insipidus, hypothyroidism, hyperlipidemia, chronic anemia, and further history below presents with weakness and dizziness. Pt states her symptoms began 2 days ago, but worsened yesterday. She states she has been feeling weak and dizzy as if the room is spinning which caused her to fall today. Pt denies head strike or loss of consciousness, states she fell on her right shoulder. Pt states she has been switchingbetween feeling hot/sweaty and cold, but denies fevers. Pt endorses nausea, no vomiting. Endorses decreased fluid intake. Pt states she has a headache currently which she takes Fiorcet at home for. Pt denies dysuria, endorses urinary frequency. Otherwise, pt denies chest pain, shortness of breath, diarrhea, constipation, hematuria, hematochezia, melena. In ED, pt received 500 mL normal saline bolus, 4 mg IV Zofran, 400 mg PO Magnesium Oxide, 1 g IV Ceftriaxone, 1 g PO Tylenol. Pt was then admitted to the medicine team for further evaluation and treatment. Upon H&P, pt is afebrile, HR 93, RR 18, BP 105/57, spO2 96% RA. Labs: WBC 18.9, pcas 1.30, GFR 50, magbesium 1.8. Troponin 4. UA positive for infection with large blood, positive nitrties, large leukocytes, 1157 WBC, many bacteria. Respiratory virus panel negative. CXR pending formal read. Review of Systems A 12 point review of system was completed and the pertinent positive/negatives are included in the HPI. MEDICAL HISTORY Past Medical History Past Medical History: Diagnosis Date ??? Anxiety ??? Cerebral palsy (CMS/HCC) ??? Chronic anemia ??? Depression ??? Diabetes insipidus (CMS/HCC) ??? Diabetes mellitus (CMS/HCC) ??? GERD (gastroesophageal reflux disease) ??? Hyperlipidemia ??? Hypertension ??? Hypothyroidism ??? Insomnia ??? Migraines Past Surgical History Past Surgical History: Procedure Laterality Date ??? APPENDECTOMY ??? OTHER SURGICAL HISTORY Transsphenoidal hypophysectomy ??? OTHER SURGICAL HISTORY Multiple surgeries at [facility] related to cerebral palsy Social History reports that she has never smoked. She has never used smokeless tobacco. She reports that she does not drink alcohol and does not use drugs. Family History Negative for premature coronary artery disease Allergies is allergic to ambien [zolpidem], trazodone, and zolmitriptan. Home Medications Per pt. No current facility-administered medications on file prior to encounter. Current Outpatient Medications on File Prior to Encounter Medication Sig Dispense Refill ??? atorvastatin (LIPITOR) 40 mg tablet Take 1 tablet (40 mg total) by mouth 1 (one) time each day. ??? desmopressin (DDAVP) 0.1 mg tablet Take 1 tablet (0.1 mg total) by mouth 2 (two) times a day. ??? doxepin (SINEquan) 75 mg capsule Take 1 capsule (75 mg total) by mouth 2 (two) times a day. ??? famotidine (PEPCID) 40 mg tablet Take 1 tablet (40 mg total) by mouth at bedtime. ??? ferrous sulfate 325 mg (65 mg iron) EC tablet Take 1 tablet (325 mg total) by mouth 1 (one) time each day. ??? Myrbetriq 25 mg 24 hr tablet Take 1 tablet (25 mg total) by mouth 1 (one) time each day. ??? omeprazole (PriLOSEC) [address] capsule Take 1 capsule (40 mg total) by mouth 1 (one) time each day. ??? pregabalin (LYRICA) 200 mg capsule Take 1 capsule (200 mg total) by mouth 2 (two) times a day. ??? QUEtiapine (SEROquel) 200 mg tablet Take 1 tablet (200 mg total) by mouth at bedtime. ??? QUEtiapine (SEROquel) 50 mg tablet Take 1 tablet (50 mg total) by mouth 1 (one) time each day. ??? tiZANidine (ZANAFLEX) 4 mg tablet Take 1 tablet (4 mg total) by mouth 2 (two) times a day if needed for muscle spasms. ??? traMADoL (ULTRAM) 50 mg tablet Take 1 tablet (50 mg total) by mouth 2 (two) times a day if needed (breakthrough pain). ??? valACYclovir (VALTREX) 500 mg tablet Take 1 tablet (500 mg total) by mouth 1 (one) time each day. ??? venlafaxine XR (EFFEXOR-XR) 150 mg 24 hr capsule Take 1 capsule (150 mg total) by mouth 1 (one)time each day. ??? zaleplon (SONATA) 5 mg capsule Take 1 capsule (5 mg total) by mouth at bedtime. OBJECTIVE Vitals Visit Vitals BP 117/87 (BP Location: Right arm, Patient Position: Lying) Pulse 98 Temp 36.6 ??C (97.9 ??F) (Oral) Resp 16 Temp (24hrs), Av.4 ??C (97.6 ??F), Min:36.4 ??C (97.5 ??F), Max:36.6 ??C (97.9 ??F) Body mass index is 44.5 kg/m??. No results found for: PTWT , PTHT Physical Examination General: Age appropriate, pleasant. No acute distress. Laying comfortably on exam stretcher. Skin: Warm, dry, intact, no diaphoresis. HEENT: Atraumatic, normocephalic head, Patient is handling secretions without trismus or drooling. Speaking in full sentences. Neck: Soft/supple, full range of motion. No cervical spine tenderness noted. Cardiology: Regular rate and rhythm, no rubs or gallops, S1 and S2 auscultated. Respiratory: Clear to auscultation bilaterally, no wheezes, rales or rhonchi. No accessory muscle use, retractions or tripoding; speaking in full sentences without difficulties. Abdominal/GI: TTP mid and LUQ of abdomen. Abdomen is not distended, Normal bowel sounds, abdomen soft. No CVA tenderness. Peripheral Vascular: No edema on lower legs. Radial pulse 2 + and Dorsalis Pedis 1+ bilaterally. Neurological: No focal deficit. CN II-XII grossly intact. Client Liaison strength equal 5/5 bilateral upper extremities. Upper and lower extremities with strength 5/5 and equal bilaterally. Musculoskeletal: No calf tenderness or asymmetry. Moving all extremities at the major joint spaces without difficulty. Psychiatric: Cooperative, appropriate mood & affect. ECG: Was ECG Performed? No. LAB RESULTS (most recent) HEMATOLOGY Lab Results Component Value Date WBC 18.9 (H) 05/01/2024 HGB 12.5 05/01/2024 HCT 37.2 05/01/2024 MCV 97.1 05/01/2024 PLT 253 05/01/2024 CHEMISTRY Lab Results Component Value Date GLUCOSE 127 (H) 05/01/2024 NA 138 05/01/2024 K 4.2 05/01/2024 CO2 26 05/01/2024 CL 104 05/01/2024 BUN 16 05/01/2024 CREATININE 1.30 (H) 05/01/2024 EGFR 50 (L) 05/01/2024 CALCIUM 9.1 05/01/2024 MG 1.8 (L) 05/01/2024 ANIONGAP 8 05/01/2024 Radiology XR Chest 2 Views (Results Pending) ASSESSMENT & PLAN Acute cystitis Sepsis with HR 113, WBC 18.9 - Admit to medicine - Continue IV Ceftriaxone - Urine culture pending - Continue IV fluids - Obtain CT abdomen/pelvis - Morning labs; CBCd, BMP, Mg Fall - Fall precautions - PT eval - Obtain orthostatic vital signs Mildly elevated creatinine Sample Selector 1.3 - Continue IV fluids - Avoid nephrotoxins and renally adjust medications Migraine - As needed Fioricet Hypomagnesemia - Replete and trend Diabetes insipidus - Continue Desmopressin Hypothyroidism - Continue Levothyroxine Hyperlipidemia - Continue Atorvastatin Depression with anxiety - Continue Doxepin, Quetiapine, Venlafaxine, and Pregabalin Chronic anemia - Stable with H&H of 12.5/37.2 - Continue to trend while inpatient - Continue iron supplement Cerebral palsy Chronic pain - Continue Tizanidine and Tramadol Insomnia - On Zaleplon which is NF in our pharmacy. Substitution to Ambien which pt is allergic to GERD - Pt is on both Omeprazole and Famotidine QUETA TIME I spent a total of 60 minutes of non-overlapping time on the visit Case discussed with Dr.Christopher Reeves Admission checklist [x] Code status: Full Code - Default [x] VTE Prophylaxis: Lovenox [x] Diet order on admission: Dietary Orders (From admission, onward) Start Ordered 05/01/242 Adult diet [facility]; General; Regular Diet effective now Question Answer Comment Location [facility] Diet Type (req) General General Diet Regular 05/01/247 [x] Medication reconciliation; per pt. Health Care proxy with Phone number: Emmie SPENCER; [phone] Cosigned by Ezequiel Reeves MD at 05/02/2024 8:01 AM EST Associated attestation - Ezequiel Reeves MD - 05/02/2024 8:01 AM EST This is a split/shared visit with YVES See. I personally performed the medical decision making (MDM) for the care of this patient on 05/02/24 as documented below 48-year-old female with history of cerebral palsy, diabetes insipidus, hyperlipidemia, hypothyroidism, and chronic anemia presents with sepsis secondary to acute cystitis. After discussion with ER provider, the patient will be admitted to the hospital. She is being fluidresuscitated and pancreas ceftriaxone. She did have some unexplained upper quadrant abdominal pain on exam and a CT of the abdomen pelvis has been ordered to evaluate for additional complicating sources of infection. Remaining chronic medical conditions as below. Ezequiel Reeves MD 05/02/24 7:58 AM EST documented in this encounter Consult Notes * Lizy Danielle MD - 05/03/2024 1:07 PM ESTAssociated Order(s): IP CONSULT TO INFECTIOUS DISEASES Infectious Diseases Consult 05/03/24 No ref. provider found YVES Rowe Reason for Consultation: UTI and bacteremia Source of history: chart review and the patient History Of Present Illness (includes Chief Complaint): Wale Durant is a 48 y.o. female who has a past medical history of Anxiety, Cerebral palsy (CMS/HCC), Chronic anemia, Depression, Diabetes insipidus (CMS/HCC), Diabetes mellitus (CMS/HCC), GERD (gastroesophageal reflux disease), Hyperlipidemia, Hypertension, Hypothyroidism, Insomnia, and Migraines.. The patient was admitted to the hospital on 05/01/2024 for weakness and dizziness.. The patient told me that she felt extremely weak, denied any dysuria however did endorse urinary frequency is admitting team yesterday. She was started on cefepime, blood cultures turn positive for Klebsiella pneumonia. She is still having high-grade fevers however her leukocytosis is improved. She still feels extremely fatigued. The ID service has been consulted for management during this patient's hospital stay. Past Medical History: Past Medical History: Diagnosis Date Anxiety Cerebral palsy (CMS/HCC) Chronic anemia Depression Diabetes insipidus (CMS/HCC) Diabetes mellitus (CMS/HCC) GERD (gastroesophageal reflux disease) Hyperlipidemia Hypertension Hypothyroidism Insomnia Migraines Surgical History: Past Surgical History: Procedure Laterality Date APPENDECTOMY OTHER SURGICAL HISTORY Transsphenoidal hypophysectomy OTHER SURGICAL HISTORY Multiple surgeries at [facility] related to cerebral palsy Family History: No family history on file. Social History: Social History Tobacco Use Smoking status: Never Smokeless tobacco: Never Substance Use Topics Alcohol use: Never Drug use: Never Allergies: Ambien [zolpidem], Trazodone, and Zolmitriptan Home Medications: Prior to Admission medications Medication Sig Start Date End Date Taking? Authorizing Provider atorvastatin (LIPITOR) 40 mg tablet Take 1 tablet (40 mg total) by mouth 1 (one) time each day. Historical Provider, desmopressin (DDAVP) 0.1 mg tablet Take 1 tablet (0.1 mg total) by mouth 2 (two) times a day. Historical Provider, doxepin (SINEquan) 75 mg capsule Take 1 capsule (75 mg total) by mouth 2 (two) times a day. 10/10/15Historical Provider, famotidine (PEPCID) 40 mg tablet Take 1 tablet (40 mg total) by mouth at bedtime. Historical Provider, ferrous sulfate 325 mg (65 mg iron) EC tablet Take 1 tablet (325 mg total) by mouth 1 (one) time each day. Historical Provider, Myrbetriq 25 mg 24 hr tablet Take 1 tablet (25 mg total) by mouth 1 (one) time each day. HistoricalProvider, omeprazole (PriLOSEC) [address] capsule Take 1 capsule (40 mg total) by mouth 1 (one) time each day.Historical Provider, pregabalin (LYRICA) 200 mg capsule Take 1 capsule (200 mg total) by mouth 2 (two) times a day. Historical Provider, QUEtiapine (SEROquel) 200 mg tablet Take 1 tablet (200 mg total) by mouth at bedtime. Historical Provider, QUEtiapine (SEROquel) 50 mg tablet Take 1 tablet (50 mg total) by mouth 1 (one) time each day. 09/25/18 Historical Provider, tiZANidine (ZANAFLEX) 4 mg tablet Take 1 tablet (4 mg total) by mouth 2 (two) times a day if neededfor muscle spasms. 04/17/24 Historical Provider, traMADoL (ULTRAM) 50 mg tablet Take 1 tablet (50 mg total) by mouth 2 (two) times a day if needed (breakthrough pain). 10/27/15 Historical Provider, valACYclovir (VALTREX) 500 mg tablet Take 1 tablet (500 mg total) by mouth 1 (one) time each day. 02/24/24 Historical Provider, venlafaxine XR (EFFEXOR-XR) 150 mg 24 hr capsule Take 1 capsule (150 mg total) by mouth 1 (one) time each day. 07/28/15 Historical Provider, zaleplon (SONATA) 5 mg capsule Take 1 capsule (5 mg total) by mouth at bedtime. 09/25/18 Historical Provider, Current Medications: Current Facility-Administered Medications: acetaminophen (TYLENOL) tablet 325 mg, 325 mg, oral, Once, Moses Sewell MD acetaminophen (TYLENOL) tablet 650 mg, 650 mg, oral, q6h PRN, Moses Sewell MD, 650 mgat 05/03/24 1018 atorvastatin (LIPITOR) tablet 40 mg, 40 mg, oral, Daily, YVES See, 40 mg at 05/03/24 1006 cefepime (MAXIPIME) 2 g in sterile water 20 mL IV syringe, 2 g, intravenous, q8h, Moses Sewell MD, 2 g at 05/03/24 0650 desmopressin (DDAVP) tablet 0.1 mg, 0.1 mg, oral, BID, YVES See, 0.1 mg at 05/03/24 1006 doxepin (SINEquan) capsule 75 mg, 75 mg, oral, BID, YVES See, 75 mg at 05/03/24 1006 enoxaparin (LOVENOX) injection 40 mg, 40 mg, subcutaneous, q12h DEREK, Ezequiel Reeves MD, 40 mg at 05/03/24 1007 famotidine (PEPCID) tablet 40 mg, 40 mg, oral, Nightly, YVES See, 40 mg at 05/02/24 2155 ferrous sulfate tablet 325 mg, 325 mg, oral, Daily, YVES See, 325 mg at 05/03/24 1007 lactated Ringer's infusion, 100 mL/hr, intravenous, Continuous, Ezequiel Reeves MD, Last Rate: 100 mL/hr at 05/03/24 1005, 100 mL/hr at 05/03/24 1005 levothyroxine (SYNTHROID, LEVOTHROID) tablet 75 mcg, 75 mcg, oral, q AM AC, Moses Sewell MD, 75 mcg at 05/03/24 0651 ondansetron ODT (ZOFRAN-ODT) disintegrating tablet 4 mg, 4 mg, oral, q8h PRN OR ondansetron (PF) (ZOFRAN) injection 4 mg, 4 mg, intravenous, q8h PRN, Ezequiel Reeves MD oxyBUTYnin (DITROPAN) tablet 2.5 mg, 2.5 mg, oral, BID, YVES See, 2.5 mg at 05/03/24 1006 pantoprazole (PROTONIX) EC tablet 40 mg, 40 mg, oral, q AM AC, YVES See, 40 mg at 05/03/24 0651 pregabalin (LYRICA) capsule 200 mg, 200 mg, oral, BID, YVES See, 200 mg at 05/03/24 1007 prochlorperazine (COMPAZINE) tablet 10 mg, 10 mg, oral, q6h PRN OR prochlorperazine (COMPAZINE)injection 10 mg, 10 mg, intravenous, q6h PRN OR prochlorperazine (COMPAZINE) suppository 25 mg,25 mg, rectal, q12h PRN, Ezequiel Reeves MD QUEtiapine (SEROquel) tablet 200 mg, 200 mg, oral, Nightly, YVES See, 200 mg at 05/02/24 2155 QUEtiapine (SEROquel) tablet 50 mg, 50 mg, oral, Daily, YVES See, 50 mg at 05/03/24 1007 [COMPLETED] Insert peripheral IV, , , Once AND Maintain IV access, , , Until discontinued AND [COMPLETED] Saline lock IV, , , Once AND sodium chloride 0.9 % flush 10 mL, 10 mL, intravenous, BID, 10 mL at 05/02/241 AND sodium chloride 0.9 % flush 10 mL, 10 mL, intravenous, PRN, Ezequiel Reeves MD tiZANidine (ZANAFLEX) tablet 4 mg, 4 mg, oral, BID PRN, YVES See, 4 mg at 05/02/24 0346 traMADoL (ULTRAM) tablet 50 mg, 50 mg, oral, BID PRN, YVES See, 50 mg at 05/02/24 0256 valACYclovir (VALTREX) tablet 500 mg, 500 mg, oral, Daily, YVES See, 500 mg at venlafaxine XR (EFFEXOR-XR) 24 hr capsule 150 mg, 150 mg, oral, Daily, YVES See, 150 mgat 05/03/24 1006 PRN medications: acetaminophen, ondansetron (ZOFRAN-ODT) disintegrating tablet OR ondansetron, prochlorperazine OR prochlorperazine OR prochlorperazine, [COMPLETED] Insert peripheral IV AND Maintain IV access AND [COMPLETED] Saline lock IV AND sodium chloride AND sodium c hloride, tiZANidine, traMADoL ROS: Review of Systems Constitutional: Positive for chills, fatigue and fever. HENT: Negative. Respiratory: Negative. Cardiovascular: Negative. Gastrointestinal: Negative. Genitourinary: Positive for frequency. Negative for difficulty urinating, dyspareunia, dysuria, genital sores, hematuria and menstrual problem. Musculoskeletal: Negative. Skin: Negative. Neurological: Negative. Vital signs for last 24 hours: Temp: 39 ??C (102.2 ??F) (05/03 1016) Heart Rate: 114 (05/03 748) Resp: 20 (05/03 748) BP: 157/90 (05/03 748) Intake/Output this shift: No intake/output data recorded. Physicial Exam Physical Exam Vitals reviewed. Constitutional: Appearance: Normal appearance. HENT: Head: Normocephalic and atraumatic. Eyes: General: No scleral icterus. Cardiovascular: Rate and Rhythm: Normal rate and regular rhythm. Heart sounds: No murmur heard. No friction rub. No gallop. Pulmonary: Effort: Pulmonary effort is normal. No respiratory distress. Breath sounds: Normal breath sounds. No stridor. No wheezing, rhonchi or rales. Chest: Chest wall: No tenderness. Abdominal: General: Abdomen is flat. Bowel sounds are normal. There is no distension. Palpations: Abdomen is soft. There is no mass. Tenderness: There is no abdominal tenderness. There is no right CVA tenderness, left CVA tenderness, guarding or rebound. Hernia: No hernia is present. Musculoskeletal: General: No swelling or tenderness. Normal range of motion. Skin: General: Skin is warm and dry. Findings: No rash. Neurological: Mental Status: She is alert. Results: Lab Admission on 05/01/2024 Component Date Value Ventricular Rate ECG 05/01/2024 110 Atrial Rate 05/01/2024 110 P-R Interval 05/01/2024 128 QRS Duration 05/01/2024 74 Q-T Interval 05/01/2024 342 QTc 05/01/2024 462 P Wave [place] 05/01/2024 54 R [place] 05/01/2024 25 T [place] 05/01/2024 12 ECG Interpretation 05/01/2024 Value:Sinus tachycardia Nonspecific T wave abnormality Abnormal ECG When compared with ECG of 14-JAN-2023 05:15, Nonspecific T wave abnormality now evident in Lateral leads Confirmed by REAL GUERIN ([id number]) on 05/02/2024 2:44:43 PM Sodium 05/01/2024 138 Potassium 05/01/2024 4.2 Chloride 05/01/2024 104 CO2 05/01/2024 26 Anion Gap 05/01/2024 8 Glucose 05/01/2024 127 (H) BUN 05/01/2024 16 Creatinine 05/01/2024 1.30 (H) eGFR 05/01/2024 50 (L) BUN/Creatinine Ratio 05/01/2024 12.3 Calcium 05/01/2024 9.1 Magnesium 05/01/2024 1.8 (L) WBC 05/01/2024 18.9 (H) RBC 05/01/2024 3.80 Hemoglobin 05/01/2024 12.5 Hematocrit 05/01/2024 37.2 MCV 05/01/2024 97.1 MCH 05/01/2024 32.6 (H) MCHC 05/01/2024 33.6 RDW 05/01/2024 14.0 Platelets 05/01/2024 253 MPV 05/01/2024 10.3 NRBC 05/01/2024 0.0 NRBC Absolute 05/01/2024 0.00 Neutrophils Relative 05/01/2024 83.0 Lymphocytes Relative 05/01/2024 6.6 Monocytes Relative 05/01/2024 8.4 Eosinophils Relative 05/01/2024 0.8 Basophils Relative 05/01/2024 0.4 Immature Granulocytes Re* 05/01/2024 0.8 Neutrophils Absolute 05/01/2024 15.66 (H) Lymphocytes Absolute 05/01/2024 1.24 Monocytes Absolute 05/01/2024 1.59 (H) Eosinophils Absolute 05/01/2024 0.16 Basophils Absolute 05/01/2024 0.08 Immature Granulocytes Ab* 05/01/2024 0.15 (H) Glucose POCT 05/01/2024 140 (H) Total Protein 05/01/2024 6.4 Albumin 05/01/2024 3.4 Total Bilirubin 05/01/2024 1.3 Bilirubin, Direct 05/01/2024 0.6 (H) Bilirubin, Indirect 05/01/2024 0.7 ALT (SGPT) 05/01/2024 53 AST (SGOT) 05/01/2024 37 Alkaline Phosphatase 05/01/2024 118 TSH 05/01/2024 0.84 High Sensitivity Troponi* 05/01/2024 4 Adenovirus Detection by * 05/01/2024 Not Detected Influenza A PCR 05/01/2024 Not Detected Influenza B PCR 05/01/2024 Not Detected Coronavirus 229E 05/01/2024 Not Detected Coronavirus HKU1 05/01/2024 Not Detected Coronavirus OC43 05/01/2024 Not Detected Coronavirus NL63 05/01/2024 Not Detected Parainfluenza Virus 1 05/01/2024 Not Detected Parainfluenza Virus 2 05/01/2024 Not Detected Parainfluenza Virus 3 05/01/2024 Not Detected Parainfluenza Virus 4 05/01/2024 Not Detected RSV PCR 05/01/2024 Not Detected Human Metapneumovirus A * 05/01/2024 Not Detected Rhinovirus/Enterovirus 05/01/2024 Not Detected Bordetella pertussis 05/01/2024 Not Detected Bordetella parapertussis 05/01/2024 Not Detected Mycoplasma pneumo by PCR 05/01/2024 Not Detected Chlamydia pneumoniae 05/01/2024 Not Detected SARS COV-2 05/01/2024 Not Detected Specific [place] Urine 05/01/2024 1.015 pH, Urine 05/01/2024 6.0 Leukocytes, Urine 05/01/2024 Large (A) Nitrite, Urine 05/01/2024 Positive (A) Protein, Urine 05/01/2024 100 (A) Glucose, Urine 05/01/2024 Negative Ketones, Urine 05/01/2024 Negative Urobilinogen, Urine 05/01/2024 0.2 Bilirubin, Urine 05/01/2024 Negative Blood, Urine 05/01/2024 Large (A) RBC, Urine 05/01/2024 15.0 (H) WBC, Urine 05/01/2024 1,157.7 (H) Squamous Epithelial, Uri* 05/01/2024 8 Bacteria, Urine 05/01/2024 Many (A) Hyaline Casts, Urine 05/01/2024 0.0 Culture, Urine 05/01/2024 >100,000 CFU/mL Gram negative bacilli (A) Culture, Blood 05/01/2024 Gram negative bacilli (AA) Gram Stain Result 05/01/2024 Anaerobic bottle Gram negative bacilli (AA) Culture, Blood 05/01/2024 Gram negative bacilli (AA) Gram Stain Result 05/01/2024 Anaerobic bottle Gram negative bacilli (AA) Gram Stain Result 05/01/2024 Aerobic bottle Gram negative bacilli (AA) Sodium 05/02/2024 136 Potassium 05/02/2024 4.4 Chloride 05/02/2024 103 CO2 05/02/2024 26 Anion Gap 05/02/2024 7 Glucose 05/02/2024 163 (H) BUN 05/02/2024 18 Creatinine 05/02/2024 1.15 (H) eGFR 05/02/2024 58 (L) BUN/Creatinine Ratio 05/02/2024 15.7 Calcium 05/02/2024 8.7 Magnesium 05/02/2024 2.0 WBC 05/02/2024 16.5 (H) RBC 05/02/2024 3.20 (L) Hemoglobin 05/02/2024 10.7 (L) Hematocrit 05/02/2024 32.0 (L) MCV 05/02/2024 99.1 (H) MCH 05/02/2024 33.1 (H) MCHC 05/02/2024 33.4 RDW 05/02/2024 14.1 Platelets 05/02/2024 202 MPV 05/02/2024 10.4 NRBC 05/02/2024 0.0 NRBC Absolute 05/02/2024 0.00 Neutrophils Relative 05/02/2024 86.7 Lymphocytes Relative 05/02/2024 3.8 Monocytes Relative 05/02/2024 8.5 Eosinophils Relative 05/02/2024 0.2 Basophils Relative 05/02/2024 0.3 Immature Granulocytes Re* 05/02/2024 0.5 Neutrophils Absolute 05/02/2024 14.28 (H) Lymphocytes Absolute 05/02/2024 0.63 (L) Monocytes Absolute 05/02/2024 1.40 (H) Eosinophils Absolute 05/02/2024 0.03 Basophils Absolute 05/02/2024 0.05 Immature Granulocytes Ab* 05/02/2024 0.09 (H) Klebsiella pneumoniae gr* 05/01/2024 Detected (A) Glucose POCT 05/02/2024 154 (H) Phosphorus 05/03/2024 2.2 (L) WBC 05/03/2024 7.2 RBC 05/03/2024 3.20 (L) Hemoglobin 05/03/2024 10.5 (L) Hematocrit 05/03/2024 31.9 (L) MCV 05/03/2024 99.4 (H) MCH 05/03/2024 32.7 (H) MCHC 05/03/2024 32.9 RDW 05/03/2024 13.9 Platelets 05/03/2024 186 MPV 05/03/2024 10.8 NRBC 05/03/2024 0.0 NRBC Absolute 05/03/2024 0.00 Sodium 05/03/2024 135 Potassium 05/03/2024 3.7 Chloride 05/03/2024 103 CO2 05/03/2024 25 Anion Gap 05/03/2024 7 Glucose 05/03/2024 107 (H) BUN 05/03/2024 17 Creatinine 05/03/2024 0.99 eGFR 05/03/2024 70 BUN/Creatinine Ratio 05/03/2024 17.2 Calcium 05/03/2024 8.8 Magnesium 05/03/2024 1.9 Lab Results Component Value Date BLOODCX Gram negative bacilli (AA) 05/01/2024 BLOODCX Gram negative bacilli (AA) 05/01/2024 URINECX >100,000 CFU/mL Gram negative bacilli (A) 05/01/2024 Recent Results (from the past 168 hour(s)) Respiratory virus panel molecular study Collection Time: 05/01/24 5:44 PM Specimen: Nares; Swab Result Value Ref Range Adenovirus Detection by PCR Not Detected Not Detected Influenza A PCR Not Detected Not Detected Influenza B PCR Not Detected Not Detected Coronavirus 229E Not Detected Not Detected Coronavirus HKU1 Not Detected Not Detected Coronavirus OC43 Not Detected Not Detected Coronavirus NL63 Not Detected Not Detected Parainfluenza Virus 1 Not Detected Not Detected Parainfluenza Virus 2 Not Detected Not Detected Parainfluenza Virus 3 Not Detected Not Detected Parainfluenza Virus 4 Not Detected Not Detected RSV PCR Not Detected Not Detected Human Metapneumovirus A and B Not Detected Not Detected Rhinovirus/Enterovirus Not Detected Not Detected Bordetella pertussis Not Detected Not Detected Bordetella parapertussis Not Detected Not Detected Mycoplasma pneumo by PCR Not Detected Not Detected Chlamydia pneumoniae Not Detected Not Detected SARS COV-2 Not Detected Not Detected Urine culture Collection Time: 05/01/24 9:04 PM Specimen: Straight Catheter; Urine Result Value Ref Range Culture, Urine >100,000 CFU/mL Gram negative bacilli (A) Blood Culture, Peripheral Draw #2 Collection Time: 05/01/24 10:31 PM Specimen: Blood, Venous Result Value Ref Range Culture, Blood Gram negative bacilli (AA) Gram Stain Result Anaerobic bottle Gram negative bacilli (AA) Gram Stain Result Aerobic bottle Gram negative bacilli (AA) Blood culture pathogens molecular study Collection Time: 05/01/24 10:31 PM Specimen: Blood, Venous Result Value Ref Range Klebsiella pneumoniae group Detected (A) Not Detected Blood Culture, Peripheral Draw #1 Collection Time: 05/01/24 10:35 PM Specimen: Blood, Venous Result Value Ref Range Culture, Blood Gram negative bacilli (AA) Gram Stain Result Anaerobic bottle Gram negative bacilli (AA) Radiology: XR Chest 2 Views Narrative: PROCEDURE: PA and lateral radiographs of the chest. HISTORY: general weakness. COMPARISON: 01/13/2023. FINDINGS: Hypoventilatory exam. No evidence of pneumonia. Cardiomediastinal contours, pleural spaces, and pulmonary vasculature are normal. Degenerative changes of the spine. Impression: Hypoventilatory exam. No acute findings. -------- FINAL REPORT -------- Dictated By: Stefan Ambriz Dictated Date: 05/02/2024 09:30 ET Assigned Physician: Stefan Ambriz Reviewed and Electronically Signed By: Stefan Ambriz Signed Date: 05/02/2024 09:34 ET Workstation ID: [id number] Transcribed By: Self Edit Transcribed Date: 05/02/2024 09:30 ET Assessment/Plan Wale Durant is a 48 y.o. female who has a past medical history of Anxiety, Cerebral palsy (CMS/HCC), Chronic anemia, Depression, Diabetes insipidus (CMS/HCC), Diabetes mellitus (CMS/HCC), GERD (gastroesophageal reflux disease), Hyperlipidemia, Hypertension, Hypothyroidism, Insomnia, and Migraines.. The patient was admitted to the hospital on 05/01/2024 for weakness and dizziness.. The patient told me that she felt extremely weak, denied any dysuria however did endorse urinary frequency is admitting team yesterday. She was started on cefepime, blood cultures turn positive for Klebsiella pneumonia. She is still having high-grade fevers however her leukocytosis is improved. She still feels extremely fatigued. The ID service has been consulted for management during this patient's hospital stay. 1. Sepsis due to Klebsiella bacteremia secondary to pyelonephritis Patient blood cultures turn positive for Klebsiella I have adjusted cefepime dose to 2 g every 12 Await NATALIA of organism Continues to have fever as of this morning, Tmax 102 Leukocytosis is improved from 16-[address] abdomen from our recommendations shows left-sided pyelonephritis Will need antibiotics for 2 weeks hopefully can send her something oral Recommendations: Continue Cefepime, I have adjusted dose back to 2 g Q12 Await NATALIA of Klebsiella I personally spent 75 minutes in this encounter. This included performing a detailed chart review, reviewing and independently interpreting labs and other tests ordered by other providers, performinga history and physical, counseling the patient/family, discussing the case with primary team , performing complex medical decision making, coordinating his/her/their plan of care and placing orders Communication: Thank you for the consult. Please do not hesitate to contact me via EpicChat with issues or questions Please note that this note has been completed with the help of voice recognition dictation software, as such there may be certain words that may be substituted or written in error error based on the voice-recognition tool, please contact me to clarify if any confusion Lizy Danielle MD documented in this encounter Plan of Treatment Not on file documented as of this encounter Procedures Procedure Name Priority Date/Time Associated Diagnosis Comments POCT GLUCOSE BLOOD Routine 05/05/2024 6: 09 AM EST OXYGEN THERAPY, ADULT Routine 05/04/2024 8:02 AM EST OXYGEN THERAPY, ADULT Routine 05/03/2024 8:[address] ABDOMEN PELVIS W CONTRAST STAT 05/03/2024 2:49 PM EST OXYGEN THERAPY, ADULT Routine 05/03/2024 8:02 AM EST COMPLETE BLOOD COUNT Routine 05/03/2024 6:05 AM EST PHOSPHORUS Routine 05/03/2024 6:05 AM EST MAGNESIUM Routine 05/03/2024 6:05 AM EST BASIC METABOLIC PANEL Routine 05/03/2024 6:05 AM EST OXYGEN THERAPY, ADULT Routine 05/02/2024 8:01 PM EST OXYGEN THERAPY, ADULT Routine 05/02/2024 1:30 PM EST OXYGEN THERAPY, ADULT Routine 05/02/2024 1:30 PM EST OXYGEN THERAPY, ADULT Routine 05/02/2024 1:30 PM EST POCT GLUCOSE BLOOD Routine 05/02/2024 12 :35 PM EST CBC WITH AUTO DIFFERENTIAL Routine 05/02/2024 6:24 AM EST CBC AND DIFFERENTIAL Routine 05/02/2024 6:24 AM EST MAGNESIUM Routine 05/02/2024 6:24 AM EST BASIC METABOLIC PANEL Routine 05/02/2024 6:24 AM EST CULTURE BLOOD STAT 05/01/2024 10:35 PM EST BLOOD CULTURE PATHOGENS BY PCR Routine 05/01/2024 10:31 PM EST CULTURE BLOOD STAT 05/01/2024 10:31 PM EST CULTURE URINE STAT 05/01/2024 9:04 PM EST URINALYSIS WITH REFLEX MICROSCOPIC STAT 05/01/2024 8:52 PM EST URINALYSIS WITH REFLEX MICROSCOPIC STAT 05/01/2024 8:52 PM EST XR CHEST 2 VIEWS STAT 05/01/2024 7:34 PM EST RESPIRATORY VIRUS PANEL MOLECULAR STUDY STAT 05/01/2024 5:44 PM EST TROPONIN I HIGH SENSITIVITY STAT 05/01/2024 5:42 PM EST THYROID STIMULATING HORMONE WITH REFLEX TO FREE T4 AND FREE T3 STAT 05/01/2024 5:42 PM EST MAGNESIUM STAT 05/01/2024 5:42 PM EST HEPATIC FUNCTION PANEL STAT 05/01/2024 5:42 PM EST BASIC METABOLIC PANEL STAT 05/01/2024 5:42 PM EST ECG 12-LEAD STAT 05/01/2024 5:33 PM EST POCT GLUCOSE BLOOD Routine 05/01/2024 5: 17 PM EST CBC WITH AUTO DIFFERENTIAL STAT 05/01/2024 5:09 PM EST CBC AND DIFFERENTIAL STAT 05/01/2024 5:09 PM EST ECG ANNOTATED 05/01/2024 documented in this encounter Results * (ABNORMAL) POCT Glucose, blood (05/05/2024 6:09 AM EST) Glucose POCT 104(H) 70 - 100 mg/dL 05/05/2024 6:09 AM EST [facility] Blood Capillary blood specimen / Unknown 05/05/2024 6:09 AM EST 05/05/2024 6:10 AM EST Moses Sewell MD LAB POINT O F CARE TEST DOCKED DEVICE UNSOLICITED RESULTS Final Result [facility] [address] [place] [address], [place] [phone] * CT Abdomen Pelvis w Contrast (05/03/2024 2:49 PM EST) Anatomical Region Laterality Modality Body Computed Tomogra phy 05/03/2024 3:03 PM EST Impressions 05/03/2024 3:24 PM EST There is enhancement of the left renal collecting system with patchy enhancement of the left kidney suggestive of urinary tract infection and pyelonephritis. ??There is no obstructing left ureteral stone. There is no drainable abscess. Incidental findings as above.. -------- FINAL REPORT -------- Dictated By: Ursula Solis Dictated Date: 05/03/2024 15:03 ET Assigned Physician: Ursula Solis Reviewed and Electronically Signed By: Ursula Solis Signed Date: 05/03/2024 15:24 ET Workstation ID: [id number] Transcribed By: Self Edit Transcribed Date: 05/03/2024 15:13 ET Narrative 05/03/2024 3:24 PM EST PROCEDURE: CT ABDOMEN/PELVIS WITH CONTRAST INDICATION: bacteremia, abdominal pain.?source TECHNIQUE: CT of the abdomen and pelvis following the intravenous administration of 90cc Isovue 370. Multiplanar reformats. The examination was performed utilizing dose reduction techniques. Total DLP 1856 COMPARISON: ??04/07/2022 FINDINGS: ?? LOWER THORAX: Loss of the left lung base. HEPATOBILIARY: No focal liver lesions. No cholelithiasis or biliary duct dilatation. ??Hepatic steatosis. SPLEEN: No focal lesion. PANCREAS: No focal mass or ductal dilatation. ADRENALS: No nodules. KIDNEYS/URETERS: There is enhancement of the left renal collecting system and proximal ureter with patchy enhancement of the left kidney. ??There are nonobstructing stones in the left kidney and punctate stone on the right. PELVIC ORGANS/BLADDER: Bladder is mildly distended. ??Left adnexal hypoattenuation could represent a small cyst. ??IUD in place. PERITONEUM / RETROPERITONEUM: Left retroperitoneal nodes are presumably reactive. VESSELS: No aneurysm. GI TRACT: No bowel distention or wall thickening. ??Prominent stool in the ascending colon. BONES AND SOFT TISSUES: Scattered degenerative changes seen throughout the bones. ??Right gluteal stimulator pack and sacral lead. Procedure Note Ursula Solis MD - 05/03/2024 PROCEDURE: CT ABDOMEN/PELVIS WITH CONTRAST INDICATION: bacteremia, abdominal pain.?source TECHNIQUE: CT of the abdomen and pelvis following the intravenousadministration of 90cc Isovue 370. Multiplanar reformats. The examinationwas performed utilizing dose reduction techniques. Total DLP 1856 COMPARISON: 04/07/2022 FINDINGS: LOWER THORAX: Loss of the left lung base. HEPATOBILIARY: No focal liver lesions. No cholelithiasis or biliary ductdilatation. Hepatic steatosis. SPLEEN: No focal lesion. PANCREAS: No focal mass or ductal dilatation. ADRENALS: No nodules. KIDNEYS/URETERS: There is enhancement of the left renal collecting systemand proximal ureter with patchy enhancement of the left kidney. There arenonobstructing stones in the left kidney and punctate stone on theright. PELVIC ORGANS/BLADDER: Bladder is mildly distended. Left adnexalhypoattenuation could represent a small cyst. IUD in place. PERITONEUM / RETROPERITONEUM: Left retroperitoneal nodes are presumablyreactive. VESSELS: No aneurysm. GI TRACT: No bowel distention or wall thickening. Prominent stool in theascending colon. BONES AND SOFT TISSUES: Scattered degenerative changes seen throughout thebones. Right gluteal stimulator pack and sacral lead. IMPRESSION: There is enhancement of the left renal collecting system with patchyenhancement of the left kidney suggestive of urinary tract infection andpyelonephritis. There is no obstructing left ureteral stone. There is nodrainable abscess. Incidental findings as above.. -------- FINAL REPORT -------- Dictated By: Ursula Solis Dictated Date: 05/03/2024 15:03 ET Assigned Physician: Ursula Solis Reviewed and Electronically Signed By: Ursula Solis Signed Date: 05/03/2024 15:24 ET Workstation ID: [id number] Transcribed By: Self Edit Transcribed Date: 05/03/2024 15:13 ET Moses Sewell MD IMG CT PROCEDURES F inal Result * Magnesium (05/03/2024 6:05 AM EST) Pathologist [facility] Magnesium 1.9 1.9 - 2.6 mg/dL LAB CHEMISTRY METHOD 05/03/2024 7:27 AM EST [facility] Blood Venous blood specimen / Unknown Venipuncture / Unknown 05/03/2024 6:05 AM EST 05/03/2024 6:48 AM EST Moses Sewell MD LAB BLOOD ORDERABLE S Final Result [facility] [address] [place] [address], [place] [phone] * (ABNORMAL) Basic metabolic panel (05/03/2024 6:05 AM EST) Sodium 135 133 - 145 mmol/L LAB CHEMISTRY METHOD 05/03/2024 7:27 AM EST [facility] Potassium 3.7 3.5 - 5.5 mmol/L LAB CHEMISTRY METHOD 05/03/2024 7:27 AM [facility] Chloride 103 96 - 110 mmol/L LAB CHEMISTRY METHOD 05/03/2024 7:27 AM [facility] CO2 25 21 - 32 mmol/L LAB CHEMISTRY METHOD 05/03/2024 7:27 AM [facility] Anion Gap 7 3 - 11 LAB CHEMISTRY METHOD 05/03/2024 7:27 AM [facility] Glucose 107(H) 70 - 100 mg/dL LAB CHEMISTRY METHOD 05/03/2024 7:27 AM [facility] BUN 17 5 - 25 mg/dL LAB CHEMISTRY METHOD 05/03/2024 7:27 AM [facility] Creatinine 0.99 0.50 - 1.10 mg/dL LAB CHEMISTRY METHOD 05/03/2024 7:27 AM [facility] eGFR 70 >=60 mL/min/1. 73m2 LAB CHEMISTRY METHOD 05/03/2024 7:27 AM [facility] Comment:Calculation based on the??Chronic Kidney Disease Epidemiology Collaboration (CKD-EPI) equation refit??without adjustment for race. BUN/Creatinine Ratio 17.2 LAB CHEMISTRY METHOD 05/03/2024 7:27 AM [facility] Calcium 8.8 8.5 - 10.5 mg/dL LAB CHEMISTRY METHOD 05/03/2024 7:27 AM [facility] Blood Venous blood specimen / Unknown Venipuncture / Unknown 05/03/2024 6:05 AM EST 05/03/2024 6:48 AM EST us Moses Sewell MD LAB BLOOD ORDERABLE S Final Result [facility] [address] [place] [address], [place] [phone] * (ABNORMAL) Complete blood count (05/03/2024 6:05 AM EST) [facility] WBC 7.2 4.8 - 10.8 K/mcL LAB HEMETOLOGY METHOD 05/03/2024 7:13 AM [facility] RBC 3.20(L) 3.80 - 4.80 M/mcL LAB HEMETOLOGY METHOD 05/03/2024 7:13 AM [facility] Hemoglobin 10.5(L) 11.5 - 16.0 g/dL LAB HEMETOLOGY METHOD 05/03/2024 7:13 AM [facility] Hematocrit 31.9(L) 35.0 - 47.0 % LAB HEMETOLOGY METHOD 05/03/2024 7:13 AM [facility] MCV 99.4(H) 79.0 - 98.0 FL LAB HEMETOLOGY METHOD 05/03/2024 7:13 AM [facility] MCH 32.7(H) 27.0 - 32.0 pcg LAB HEMETOLOGY METHOD 05/03/2024 7:13 AM [facility] MCHC 32.9 32.0 - 37.0 g/dL LAB HEMETOLOGY METHOD 05/03/2024 7:13 AM [facility] RDW 13.9 11.0 - 15.0 % LAB HEMETOLOGY METHOD 05/03/2024 7:13 AM [facility] Platelets 186 130 - 400 K/mcL LAB HEMETOLOGY METHOD 05/03/2024 7:13 AM [facility] MPV 10.8 7.0 - 11.0 FL LAB HEMETOLOGY METHOD 05/03/2024 7:13 AM [facility] NRBC 0.0 <1.0 % LAB HEMETOLOGY METHOD 05/03/2024 7:13 AM [facility] NRBC Absolute 0.00 <0.10 K/mcL LAB HEMETOLOGY METHOD 05/03/2024 7:13 AM EST [facility] Blood Venous blood specimen / Unknown Venipuncture / Unknown 05/03/2024 6:05 AM EST 05/03/2024 6:47 AM EST us Moses Sewell MD LAB BLOOD ORDERABLE S Final Result Performing Organization Address [facility]/ZIP Co de Phone Number [facility] [address] [place] [address], [place] [phone] * (ABNORMAL) Phosphorus (05/03/2024 6:05 AM EST) Phosphorus 2.2(L) 2.5 - 4.5 mg/dL LAB CHEMISTRY METHOD 05/03/2024 7:27 AM EST [facility] Blood Venous blood specimen / Unknown Venipuncture / Unknown 05/03/2024 6:05 AM EST 05/03/2024 6:48 AM EST us Moses Sewell MD LAB BLOOD ORDERABLE S Final Result Performing Organization Address [facility] de Phone Number [facility] [address] [place] [address], [place] [phone] * (ABNORMAL) POCT Glucose, blood (05/02/2024 12:35 PM EST) Glucose POCT 154(H) 70 - 100 mg/dL 05/02/2024 12:35 PM EST [facility] Blood Capillary blood specimen / Unknown 05/02/2024 12:35 PM EST 05/02/2024 12:36 PM EST us Moses Sewell MD LAB POINT O F CARE TEST DOCKED DEVICE UNSOLICITED RESULTS Final Result Performing Organization Address City/[facility]/ZIP Co de Phone Number [facility] [address] [place] [address], * (ABNORMAL) CBC auto differential (05/02/2024 6:24 AM EST) WBC 16.5(H) 4.8 - 10.8 K/mcL LAB HEMETOLOGY METHOD 05/02/2024 7:33 AM EST [facility] RBC 3.20(L) 3.80 - 4.80 M/mcL LAB HEMETOLOGY METHOD 05/02/2024 7:33 AM [facility] Hemoglobin 10.7(L) 11.5 - 16.0 g/dL LAB HEMETOLOGY METHOD 05/02/2024 7:33 AM [facility] Hematocrit 32.0(L) 35.0 - 47.0 % LAB HEMETOLOGY METHOD 05/02/2024 7:33 AM [facility] MCV 99.1(H) 79.0 - 98.0 FL LAB HEMETOLOGY METHOD 05/02/2024 7:33 AM [facility] MCH 33.1(H) 27.0 - 32.0 pcg LAB HEMETOLOGY METHOD 05/02/2024 7:33 AM [facility] MCHC 33.4 32.0 - 37.0 g/dL LAB HEMETOLOGY METHOD 05/02/2024 7:33 AM [facility] RDW 14.1 11.0 - 15.0 % LAB HEMETOLOGY METHOD 05/02/2024 7:33 AM [facility] Platelets 202 130 - 400 K/mcL LAB HEMETOLOGY METHOD 05/02/2024 7:33 AM [facility] MPV 10.4 7.0 - 11.0 FL LAB HEMETOLOGY METHOD 05/02/2024 7:33 AM [facility] NRBC 0.0 <1.0 % LAB HEMETOLOGY METHOD 05/02/2024 7:33 AM [facility] NRBC Absolute 0.00 <0.10 K/mcL LAB HEMETOLOGY METHOD 05/02/2024 7:33 AM [facility] Neutrophils Relative 86.7 % LAB HEMETOLOGY METHOD 05/02/2024 7:33 AM [facility] Lymphocytes Relative 3.8 % LAB HEMETOLOGY METHOD 05/02/2024 7:33 AM [facility] Monocytes Relative 8.5 % LAB HEMETOLOGY METHOD 05/02/2024 7:33 AM [facility] Eosinophils Relative 0.2 % LAB HEMETOLOGY METHOD 05/02/2024 7:33 AM [facility] Basophils Relative 0.3 % LAB HEMETOLOGY METHOD 05/02/2024 7:33 AM [facility] Immature Granulocytes Relative 0.5 % LAB HEMETOLOGY METHOD 05/02/2024 7:33 AM [facility] Neutrophils Absolute 14.28(H) 1.50 - 7.00 K/mcL LAB HEMETOLOGY METHOD 05/02/2024 7:33 AM [facility] Lymphocytes Absolute 0.63(L) 1.00 - 5.00 K/mcL LAB HEMETOLOGY METHOD 05/02/2024 7:33 AM [facility] Monocytes Absolute 1.40(H) 0.20 - 1.00 K/mcL LAB HEMETOLOGY METHOD 05/02/2024 7:33 AM [facility] Eosinophils Absolute 0.03 0.00 - 0.50 K/mcL LAB HEMETOLOGY METHOD 05/02/2024 7:33 AM [facility] Basophils Absolute 0.05 0.00 - 0.20 K/mcL LAB HEMETOLOGY METHOD 05/02/2024 7:33 AM [facility] Immature Granulocytes Absolute 0.09(H) 0.00 - 0.03 K/mcL LAB HEMETOLOGY METHOD 05/02/2024 7:33 AM EST [facility] Blood Venous blood specimen / Unknown Venipuncture / Unknown 05/02/2024 6:24 AM EST 05/02/2024 6:35 AM EST Ezequiel Reeves MD LAB BLOOD ORDERABLES Final Result Performing Organization Address [facility]/ZIP Co de Phone Number [facility] [address] [place] [address], [place] [phone] * Magnesium (05/02/2024 6:24 AM EST) Pathologist [facility] Magnesium 2.0 1.9 - 2.6 mg/dL LAB CHEMISTRY METHOD 05/02/2024 7:21 AM EST [facility] Blood Venous blood specimen / Unknown Venipuncture / Unknown 05/02/2024 6:24 AM EST 05/02/2024 6:35 AM EST Rakel MARINELLI LAB BLOOD ORDERABLES Final R esult Performing Organization Address [facility]/ZIP Co de Phone Number [facility] [address] [place] [address], [place] [phone] * (ABNORMAL) Basic metabolic panel (05/02/2024 6:24 AM EST) Pathologist [facility] Sodium 136 133 - 145 mmol/L LAB CHEMISTRY METHOD 05/02/2024 7:21 AM EST [facility] Potassium 4.4 3.5 - 5.5 mmol/L LAB CHEMISTRY METHOD 05/02/2024 7:21 AM EST [facility] Chloride 103 96 - 110 mmol/L LAB CHEMISTRY METHOD 05/02/2024 7:21 AM EST [facility] CO2 26 21 - 32 mmol/L LAB CHEMISTRY METHOD 05/02/2024 7:21 AM [facility] Anion Gap 7 3 - 11 LAB CHEMISTRY METHOD 05/02/2024 7:21 AM [facility] Glucose 163(H) 70 - 100 mg/dL LAB CHEMISTRY METHOD 05/02/2024 7:21 AM [facility] BUN 18 5 - 25 mg/dL LAB CHEMISTRY METHOD 05/02/2024 7:21 AM [facility] Creatinine 1.15(H) 0.50 - 1.10 mg/dL LAB CHEMISTRY METHOD 05/02/2024 7:21 AM [facility] eGFR 58(L) >=60 mL/min/1. 73m2 LAB CHEMISTRY METHOD 05/02/2024 7:21 AM [facility] Comment:Calculation based on the??Chronic Kidney Disease Epidemiology Collaboration (CKD-EPI) equation refit??without adjustment for race. BUN/Creatinine Ratio 15.7 LAB CHEMISTRY METHOD 05/02/2024 7:21 AM [facility] Calcium 8.7 8.5 - 10.5 mg/dL LAB CHEMISTRY METHOD 05/02/2024 7:21 AM [facility] Blood Venous blood specimen / Unknown Venipuncture / Unknown 05/02/2024 6:24 AM EST 05/02/2024 6:35 AM EST us Ezequiel Reeves MD LAB BLOOD ORDERABLES Final Result [facility] [address] [place] [address], * (ABNORMAL) Blood Culture, Peripheral Draw #1 (05/01/2024 10:35 PM EST) Culture, Blood Klebsiella pneumoniae ssp pneumoniae(AA) NATALIA 05/04/2024 8:49 AM [facility] Comment: The organism value for this result has been updated. These results have been appended to the previously preliminary verified report. This is an edited result. Previous organism was Gram negative bacilli on 05/03/2024 at 1014 EST. Gram Stain Result Anaerobic bottle Gram negative bacilli(AA) 05/04/2024 8:49 AM EST [facility] Comment:This is an appended report. These results have been appended to a previously preliminary verified report. Blood Venous blood specimen / Unknown Venipuncture / Unknown 05/01/2024 10:35 PM EST 05/01/2024 10:51 PM EST Narrative [facility] - 05/04/2024 8:49 AM EST FOR SUSCEPTIBILITIES, REFER TO PREVIOUS CULTURE FROM 05/01/24 at 2231. us Lencho Hernandez MD LAB MICROBIOLOGY - GENERAL ORD ERABLES Final Result Performing Organization Address [facility]/ZIP Co de Phone Number [facility] [address] [place] [address], [place] [phone] * (ABNORMAL) Blood culture pathogens molecular study (05/01/2024 10:31 PM EST) Klebsiella pneumoniae group Detected (A) Not Detected LAB MICROBIOLOGY METHOD 05/02/2024 1:14 PM EST [facility] Blood Venous blood specimen / Unknown Venipuncture / Unknown 05/01/2024 10:31 PM EST 05/01/2024 10:51 PM EST Lencho Hernandez MD LAB MICROBIOLOGY - GENERAL ORD ERABLES Final Result Performing Organization Address [facility]/ZIP Co de Phone Number [facility] [address] [place] [address], [place] [phone] * (ABNORMAL) Blood Culture, Peripheral Draw #2 (05/01/2024 10:31 PM EST) Culture, Blood Klebsiella pneumoniae ssp pneumoniae(AA) NATALIA 05/04/2024 8:47 AM EST [facility] Comment: The organism value for this result has been updated. These results have been appended to the previously preliminary verified report. This is an edited result. Previous organism was Gram negative bacilli on 05/03/2024 at 1013 EST. Gram Stain Result Anaerobic bottle Gram negative bacilli(AA) 05/04/2024 8:47 AM EST [facility] Comment:This is an appended report. These results have been appended to a previously preliminary verified report. Gram Stain Result Aerobic bottle Gram negative bacilli(AA) 05/04/2024 8:47 AM EST [facility] Comment:This is an appended report. These results have been appended to a previously preliminary verified report. Blood Venous blood specimen / Unknown Venipuncture / Unknown 05/01/2024 10:31 PM EST 05/01/2024 10:51 PM EST Narrative Organism Antibiotic Method Susceptibility Klebsiella pneumoniae ssp pneumoniae Amoxicillin/Clavulanate NATALIA <=2 ug/ml: Susceptible Klebsiella pneumoniae ssp pneumoniae Ampicillin/Sulbactam NATALIA <=2 ug/ml: Susceptible Klebsiella pneumoniae ssp pneumoniae Piperacillin/Tazobactam NATALIA <=4 ug/ml: Susceptible Klebsiella pneumoniae ssp pneumoniae Cefazolin (Other) NATALIA <=1 ug/ml: Susceptible Klebsiella pneumoniae ssp pneumoniae Cefoxitin NATALIA <=4 ug/ml: Susceptible Klebsiella pneumoniae ssp pneumoniae Ceftazidime NATALIA <=0.5 ug/ml: Susceptible Klebsiella pneumoniae ssp pneumoniae Ceftriaxone NATALIA <=0.25 ug/ml: Susceptible Klebsiella pneumoniae ssp pneumoniae Cefepime NATALIA <=0.12 ug/ml: Susceptible Klebsiella pneumoniae ssp pneumoniae Meropenem NATALIA <=0.25 ug/ml: Susceptible Klebsiella pneumoniae ssp pneumoniae Amikacin NATALIA <=1 ug/ml: Susceptible Klebsiella pneumoniae ssp pneumoniae Gentamicin NATALIA <=1 ug/ml: Susceptible Klebsiella pneumoniae ssp pneumoniae Ciprofloxacin NATALIA <=0.06 ug/ml: Susceptible Klebsiella pneumoniae ssp pneumoniae Levofloxacin NATALIA <=0.12 ug/ml: Susceptible Klebsiella pneumoniae ssp pneumoniae Trimethoprim/Sulfamethoxazo le NATALIA >=320 ug/ml: Resistant us Lencho Hernandez MD LAB MICROBIOLOGY - GENERAL ORD ERABLES Final Result [facility] [address] [place] [address], [place] [phone] * (ABNORMAL) Urine culture (05/01/2024 9:04 PM EST) [facility] Signature Culture, Urine >100,000 CFU/mL Klebsiella pneumoniae ssp pneumoniae(A) NATALIA 05/04/2024 7:[address] [facility] Comment: This is an edited result. Previous organism was Gram negative bacilli on 05/03/2024 at 1127 EST. Urine Urinary bladder structure / Unknown Non-blood Collection / Unknown 05/01/2024 9:04 PM EST 05/01/2024 9:14 PM EST Narrative Organism Antibiotic Method Susceptibility Klebsiella pneumoniae ssp pneumoniae Amoxicillin/Clavulanate NATALIA <=2 ug/ml: Susceptible Klebsiella pneumoniae ssp pneumoniae Ampicillin/Sulbactam NATALIA 4 ug/ml: Susceptible Klebsiella pneumoniae ssp pneumoniae Piperacillin/Tazobactam NATALIA <=4 ug/ml: Susceptible Klebsiella pneumoniae ssp pneumoniae Cefazolin (Urine) NATALIA 2 ug/ml: Susceptible Klebsiella pneumoniae ssp pneumoniae Cefoxitin NATALIA <=4 ug/ml: Susceptible Klebsiella pneumoniae ssp pneumoniae Ceftazidime NATALIA <=0.5 ug/ml: Susceptible Klebsiella pneumoniae ssp pneumoniae Ceftriaxone NATALIA <=0.25 ug/ml: Susceptible Klebsiella pneumoniae ssp pneumoniae Cefepime NATALIA <=0.12 ug/ml: Susceptible Klebsiella pneumoniae ssp pneumoniae Meropenem NATALIA <=0.25 ug/ml: Susceptible Klebsiella pneumoniae ssp pneumoniae Amikacin NATALIA <=1 ug/ml: Susceptible Klebsiella pneumoniae ssp pneumoniae Gentamicin NATALIA <=1 ug/ml: Susceptible Klebsiella pneumoniae ssp pneumoniae Ciprofloxacin NATALIA <=0.06 ug/ml: Susceptible Klebsiella pneumoniae ssp pneumoniae Levofloxacin NATALIA <=0.12 ug/ml: Susceptible Klebsiella pneumoniae ssp pneumoniae Nitrofurantoin NATALIA 64 ug/ml: Intermediate Klebsiella pneumoniae ssp pneumoniae Trimethoprim/Sulfamethoxazo le NATALIA >=320 ug/ml: Resistant us Lencho Hernandez MD LAB MICROBIOLOGY - GENERAL ORD ERABLES Final Result [facility] [address] [place] [address], [place] [phone] * (ABNORMAL) Urinalysis with reflex microscopic (05/01/2024 8:52 PM EST) Specific [place] Urine 1.015 1.003 - 1.030 LAB URINALYSIS - AUTOMATED METHOD 05/01/2024 9:35 PM [facility] pH, Urine 6.0 5.0 - 8.0 pH LAB URINALYSIS - AUTOMATED METHOD 05/01/2024 9:35 PM [facility] Leukocytes, Urine Large(A) Negative LAB URINALYSIS - AUTOMATED METHOD 05/01/2024 9:35 PM [facility] Nitrite, Urine Positive(A) Negative LAB URINALYSIS - AUTOMATED METHOD 05/01/2024 9:35 PM [facility] Protein, Urine 100(A) <=Trace mg/dL LAB URINALYSIS - AUTOMATED METHOD 05/01/2024 9:35 PM [facility] Glucose, Urine Negative Negative mg/dL LAB URINALYSIS - AUTOMATED METHOD 05/01/2024 9:35 PM [facility] Ketones, Urine Negative Negative mg/dL LAB URINALYSIS - AUTOMATED METHOD 05/01/2024 9:35 PM [facility] Urobilinogen , Urine 0.2 0.2 - 1.0 mg/dL LAB URINALYSIS - AUTOMATED METHOD 05/01/2024 9:35 PM [facility] Bilirubin, Urine Negative Negative LAB URINALYSIS - AUTOMATED METHOD 05/01/2024 9:35 PM [facility] Blood, Urine Large(A) Negative LAB URINALYSIS - AUTOMATED METHOD 05/01/2024 9:35 PM [facility] RBC, Urine 15.0(H) 0 - 4 /HPF LAB URINALYSIS - AUTOMATED METHOD 05/01/2024 9:35 PM [facility] WBC, Urine 1,157.7(H) 0 - 4 /HPF LAB URINALYSIS - AUTOMATED METHOD 05/01/2024 9:35 PM EST [facility] Squamous Epithelial, Urine 8 0 - 60 /LPF LAB URINALYSIS - AUTOMATED METHOD 05/01/2024 9:35 PM EST [facility] Bacteria, Urine Many(A) Negative /HPF LAB URINALYSIS - AUTOMATED METHOD 05/01/2024 9:35 PM EST [facility] Hyaline Casts, Urine 0.0 0 - 3 /LPF LAB URINALYSIS - AUTOMATED METHOD 05/01/2024 9:35 PM EST [facility] Urine Urine specimen obtained by clean catch procedure / Unknown Non-blood Collection / Unknown 05/01/2024 8:52 PM EST 05/01/2024 9:14 PM EST us Lencho Hernandez MD LAB URINE ORDERABLES Final Res ult [facility] [address] [place] [address], [place] [phone] * XR Chest 2 Views (05/01/2024 7:34 PM EST) Anatomical Region Laterality Modality Body Radiographic Aniyah ging 05/02/2024 9:3 0 AM EST Impressions 05/02/2024 9:34 AM EST Hypoventilatory exam. ??No acute findings. -------- FINAL REPORT -------- Dictated By: Stefan Ambriz Dictated Date: 05/02/2024 09:30 ET Assigned Physician: Stefan Ambriz Reviewed and Electronically Signed By: Stefan Ambriz Signed Date: 05/02/2024 09:34 ET Workstation ID: [id number] Transcribed By: Self Edit Transcribed Date: 05/02/2024 09:30 ET Narrative 05/02/2024 9:34 AM EST PROCEDURE: PA and lateral radiographs of the chest. HISTORY: general weakness. COMPARISON: 01/13/2023. FINDINGS: Hypoventilatory exam. ??No evidence of pneumonia. ??Cardiomediastinal contours, pleural spaces, and pulmonary vasculature are normal. ??Degenerative changes of the spine. Procedure Note Stefan Ambriz MD - 05/02/2024 PROCEDURE: PA and lateral radiographs of the chest. HISTORY: general weakness. COMPARISON: 01/13/2023. FINDINGS: Hypoventilatory exam. No evidence of pneumonia. Cardiomediastinalcontours, pleural spaces, and pulmonary vasculature are normal.Degenerative changes of the spine. IMPRESSION: Hypoventilatory exam. No acute findings. -------- FINAL REPORT -------- Dictated By: Stefan Ambriz Dictated Date: 05/02/2024 09:30 ET Assigned Physician: Stefan Ambriz Reviewed and Electronically Signed By: Stefan Ambriz Signed Date: 05/02/2024 09:34 ET Workstation ID: [id number] Transcribed By: Self Edit Transcribed Date: 05/02/2024 09:30 ET Lencho Hernandez MD IMG XR PROCEDURES Final Result * Respiratory virus panel molecular study (05/01/2024 5:44 PM EST) Adenovirus Detection by PCR Not Detected Not Detected LAB MICROBIOLOGY METHOD 05/01/2024 6:55 PM [facility] Influenza A PCR Not Detected Not Detected LAB MICROBIOLOGY METHOD 05/01/2024 6:55 PM [facility] Influenza B PCR Not Detected Not Detected LAB MICROBIOLOGY METHOD 05/01/2024 6:55 PM [facility] Coronavirus 229E Not Detected Not Detected LAB MICROBIOLOGY METHOD 05/01/2024 6:55 PM [facility] Coronavirus HKU1 Not Detected Not Detected LAB MICROBIOLOGY METHOD 05/01/2024 6:55 PM [facility] Coronavirus OC43 Not Detected Not Detected LAB MICROBIOLOGY METHOD 05/01/2024 6:55 PM [facility] Coronavirus NL63 Not Detected Not Detected LAB MICROBIOLOGY METHOD 05/01/2024 6:55 PM [facility] Parainfluenza Virus 1 Not Detected Not Detected LAB MICROBIOLOGY METHOD 05/01/2024 6:55 PM EST [facility] Parainfluenza Virus 2 Not Detected Not Detected LAB MICROBIOLOGY METHOD 05/01/2024 6:55 PM [facility] Parainfluenza Virus 3 Not Detected Not Detected LAB MICROBIOLOGY METHOD 05/01/2024 6:55 PM [facility] Parainfluenza Virus 4 Not Detected Not Detected LAB MICROBIOLOGY METHOD 05/01/2024 6:55 PM [facility] RSV PCR Not Detected Not Detected LAB MICROBIOLOGY METHOD 05/01/2024 6:55 PM [facility] Human Metapneumovirus A and B Not Detected Not Detected LAB MICROBIOLOGY METHOD 05/01/2024 6:55 PM [facility] Rhinovirus/Entero virus Not Detected Not Detected LAB MICROBIOLOGY METHOD 05/01/2024 6:55 PM [facility] Bordetella pertussis Not Detected Not Detected LAB MICROBIOLOGY METHOD 05/01/2024 6:55 PM [facility] Bordetella parapertussis Not Detected Not Detected LAB MICROBIOLOGY METHOD 05/01/2024 6:55 PM [facility] Mycoplasma pneumo by PCR Not Detected Not Detected LAB MICROBIOLOGY METHOD 05/01/2024 6:55 PM [facility] Chlamydia pneumoniae Not Detected Not Detected LAB MICROBIOLOGY METHOD 05/01/2024 6:55 PM [facility] SARS COV-2 Not Detected Not Detected LAB MICROBIOLOGY METHOD 05/01/2024 6:55 PM [facility] Swab Both anterior nares / Unknown Non-blood Collection / Unknown 05/01/2024 5:44 PM EST 05/01/2024 5:57 PM EST [facility] - 05/01/2024 6:55 PM EST Testing was performed using the Portable Internet Respiratory Pathogen PCR Assay. All results must be correlated with the clinical findings. Results should not be used as the sole basis for diagnosis. False Negative results may occur from the presence of sequence variants in the region targeted by the assay or the presence of inhibitors. Results may be affected by concurrent antiviral/antimicrobial therapy or levels of organisms that are below the limit of detection. us Lencho Hernandez MD LAB MICROBIOLOGY - GENERAL ORD ERABLES Final Result Performing Organization Address [facility] Co de Phone Number [facility] [address] [place] [address], * Troponin I high sensitivity (05/01/2024 5:42 PM EST) [facility] High Sensitivity Troponin I 4 <=54 ng/L LAB CHEMISTRY METHOD 05/01/2024 6:27 PM EST [facility] Blood Venous blood specimen / Unknown Venipuncture / Unknown 05/01/2024 5:42 PM EST 05/01/2024 5:57 PM EST Narrative [facility] - 05/01/2024 6:27 PM EST High levels of biotin in samples may falsely decrease hsTroponin values. ??Use caution when interpreting hsTroponin results in patients taking biotin who exhibit renal impairment (eGFR <60) or in patients taking more than 20 mg/day of biotin. us Lencho Hernandez MD LAB BLOOD ORDERABLES Final Res ult Performing Organization Address [facility] Co de Phone Number [facility] [address] [place] [address], * Thyroid stimulating hormone with reflex to free t4 and free t3 (TSH Reflex) (05/01/2024 5:42 PM EST) [facility] TSH 0.84 0.40 - 4.00 mcIU/mL LAB CHEMISTRY METHOD 05/01/2024 6:35 PM EST [facility] Blood Venous blood specimen / Unknown Venipuncture / Unknown 05/01/2024 5:42 PM EST 05/01/2024 5:57 PM EST us Lencho Hernandez MD LAB BLOOD ORDERABLES Final Res ult [facility] [address] [place] [address], [place] [phone] * (ABNORMAL) Hepatic function panel (05/01/2024 5:42 PM EST) Pathologist [facility] Total Protein 6.4 6.0 - 8.0 g/dL LAB CHEMISTRY METHOD 05/01/2024 6:27 PM EST [facility] Albumin 3.4 3.2 - 5.0 g/dL LAB CHEMISTRY METHOD 05/01/2024 6:27 PM [facility] Total Bilirubin 1.3 0.0 - 1.4 mg/dL LAB CHEMISTRY METHOD 05/01/2024 6:27 PM [facility] Bilirubin, Direct 0.6(H) 0.0 - 0.3 mg/dL LAB CHEMISTRY METHOD 05/01/2024 6:27 PM [facility] Bilirubin, Indirect 0.7 0.0 - 1.1 mg/dL LAB CHEMISTRY METHOD 05/01/2024 6:27 PM [facility] ALT (SGPT) 53 10 - 60 unit/L LAB CHEMISTRY METHOD 05/01/2024 6:27 PM [facility] AST (SGOT) 37 10 - 42 unit/L LAB CHEMISTRY METHOD 05/01/2024 6:27 PM [facility] Alkaline Phosphatase 118 42 - 121 unit/L LAB CHEMISTRY METHOD 05/01/2024 6:27 PM [facility] Blood Venous blood specimen / Unknown Venipuncture / Unknown 05/01/2024 5:42 PM EST 05/01/2024 5:57 PM EST us Lencho Hernandez MD LAB BLOOD ORDERABLES Final Res ult [facility] [address] [place] [address], [place] [phone] * (ABNORMAL) Magnesium (05/01/2024 5:42 PM EST) Magnesium 1.8(L) 1.9 - 2.6 mg/dL LAB CHEMISTRY METHOD 05/01/2024 6:27 PM [facility] Blood Venous blood specimen / Unknown Venipuncture / Unknown 05/01/2024 5:42 PM EST 05/01/2024 5:57 PM EST Lencho Hernandez MD LAB BLOOD ORDERABLES Final Res ult Performing Organization Address City/[facility]/ZIP Co de Phone Number [facility] [address] [place] [address], [place] [phone] * (ABNORMAL) Basic metabolic panel (05/01/2024 5:42 PM EST) Sodium 138 133 - 145 mmol/L LAB CHEMISTRY METHOD 05/01/2024 6:27 PM [facility] Potassium 4.2 3.5 - 5.5 mmol/L LAB CHEMISTRY METHOD 05/01/2024 6:27 PM [facility] Chloride 104 96 - 110 mmol/L LAB CHEMISTRY METHOD 05/01/2024 6:27 PM [facility] CO2 26 21 - 32 mmol/L LAB CHEMISTRY METHOD 05/01/2024 6:27 PM [facility] Anion Gap 8 3 - 11 LAB CHEMISTRY METHOD 05/01/2024 6:27 PM [facility] Glucose 127(H) 70 - 100 mg/dL LAB CHEMISTRY METHOD 05/01/2024 6:27 PM [facility] BUN 16 5 - 25 mg/dL LAB CHEMISTRY METHOD 05/01/2024 6:27 PM EST [facility] Creatinine 1.30(H) 0.50 - 1.10 mg/dL LAB CHEMISTRY METHOD 05/01/2024 6:27 PM EST [facility] eGFR 50(L) >=60 mL/min/1. 73m2 LAB CHEMISTRY METHOD 05/01/2024 6:27 PM EST [facility] Comment:Calculation based on the??Chronic Kidney Disease Epidemiology Collaboration (CKD-EPI) equation refit??without adjustment for race. BUN/Creatinine Ratio 12.3 LAB CHEMISTRY METHOD 05/01/2024 6:27 PM EST [facility] Calcium 9.1 8.5 - 10.5 mg/dL LAB CHEMISTRY METHOD 05/01/2024 6:27 PM EST [facility] Blood Venous blood specimen / Unknown Venipuncture / Unknown 05/01/2024 5:42 PM EST 05/01/2024 5:57 PM EST us Lencho Hernandez MD LAB BLOOD ORDERABLES Final Res ult [facility] [address] [place] [address], * ECG 12 lead (05/01/2024 5:33 PM EST) Ventricular Rate ECG 110 BPM GEMUSE Atrial Rate 110 BPM GEMUSE P-R Interval 128 ms GEMUSE QRS Duration 74 ms GEMUSE Q-T Interval 342 ms GEMUSE QTc 462 ms GEMUSE P Wave [place] 54 degrees GEMUSE R [place] 25 degrees GEMUSE T [place] 12 degrees GEMUSE ECG Interpretation Sinus tachycardia Nonspecific T wave abnormality Abnormal ECG When compared with ECG of 14-JAN-2023 05:15, Nonspecific T wave abnormality now evident in Lateral leads Confirmed by REAL GUERIN ([id number]) on 05/02/2024 2:44:43 PM GEMUSE 05/01/2024 5:33 PM EST 05/02/2024 2:44 PM EST Lencho Hernandez MD ECG ORDERABLES Final Result GEMUSE * (ABNORMAL) POCT Glucose, blood (05/01/2024 5:17 PM EST) Glucose POCT 140(H) 70 - 100 mg/dL 05/01/2024 5:18 PM EST [facility] Blood Capillary blood specimen / Unknown 05/01/2024 5:17 PM EST 05/01/2024 5:19 PM EST Lencho Hernandez MD LAB POINT OF CARE TE ST DOCKED DEVICE UNSOLICITED RESULTS Final Result Performing Organization Address City/[facility]/ZIP Co de Phone Number [facility] [address] [place] [address], [place] [phone] * (ABNORMAL) CBC auto differential (05/01/2024 5:09 PM EST) WBC 18.9(H) 4.8 - 10.8 K/mcL LAB HEMETOLOGY METHOD 05/01/2024 5:38 PM [facility] RBC 3.80 3.80 - 4.80 M/mcL LAB HEMETOLOGY METHOD 05/01/2024 5:38 PM [facility] Hemoglobin 12.5 11.5 - 16.0 g/dL LAB HEMETOLOGY METHOD 05/01/2024 5:38 PM [facility] Hematocrit 37.2 35.0 - 47.0 % LAB HEMETOLOGY METHOD 05/01/2024 5:38 PM [facility] MCV 97.1 79.0 - 98.0 FL LAB HEMETOLOGY METHOD 05/01/2024 5:38 PM [facility] MCH 32.6(H) 27.0 - 32.0 pcg LAB HEMETOLOGY METHOD 05/01/2024 5:38 PM [facility] MCHC 33.6 32.0 - 37.0 g/dL LAB HEMETOLOGY METHOD 05/01/2024 5:38 PM [facility] RDW 14.0 11.0 - 15.0 % LAB HEMETOLOGY METHOD 05/01/2024 5:38 PM [facility] Platelets 253 130 - 400 K/mcL LAB HEMETOLOGY METHOD 05/01/2024 5:38 PM [facility] MPV 10.3 7.0 - 11.0 FL LAB HEMETOLOGY METHOD 05/01/2024 5:38 PM [facility] NRBC 0.0 <1.0 % LAB HEMETOLOGY METHOD 05/01/2024 5:38 PM [facility] NRBC Absolute 0.00 <0.10 K/mcL LAB HEMETOLOGY METHOD 05/01/2024 5:38 PM [facility] Neutrophils Relative 83.0 % LAB HEMETOLOGY METHOD 05/01/2024 5:38 PM [facility] Lymphocytes Relative 6.6 % LAB HEMETOLOGY METHOD 05/01/2024 5:38 PM [facility] Monocytes Relative 8.4 % LAB HEMETOLOGY METHOD 05/01/2024 5:38 PM [facility] Eosinophils Relative 0.8 % LAB HEMETOLOGY METHOD 05/01/2024 5:38 PM [facility] Basophils Relative 0.4 % LAB HEMETOLOGY METHOD 05/01/2024 5:38 PM [facility] Immature Granulocytes Relative 0.8 % LAB HEMETOLOGY METHOD 05/01/2024 5:38 PM [facility] Neutrophils Absolute 15.66(H) 1.50 - 7.00 K/mcL LAB HEMETOLOGY METHOD 05/01/2024 5:38 PM [facility] Lymphocytes Absolute 1.24 1.00 - 5.00 K/mcL LAB HEMETOLOGY METHOD 05/01/2024 5:38 PM EST [facility] Monocytes Absolute 1.59(H) 0.20 - 1.00 K/mcL LAB HEMETOLOGY METHOD 05/01/2024 5:38 PM EST [facility] Eosinophils Absolute 0.16 0.00 - 0.50 K/mcL LAB HEMETOLOGY METHOD 05/01/2024 5:38 PM EST [facility] Basophils Absolute 0.08 0.00 - 0.20 K/mcL LAB HEMETOLOGY METHOD 05/01/2024 5:38 PM EST [facility] Immature Granulocytes Absolute 0.15(H) 0.00 - 0.03 K/mcL LAB HEMETOLOGY METHOD 05/01/2024 5:38 PM EST [facility] Blood Venous blood specimen / Unknown Venipuncture / Unknown 05/01/2024 5:09 PM EST 05/01/2024 5:18 PM EST Lencho Hernandez MD LAB BLOOD ORDERABLES Final Res ult [facility] [address] [place] [address], * ECG-Annotated (05/01/2024) Provider Onbase ECG ORDERABLES Final Result documented in this encounter Visit Diagnoses Diagnosis Pyelonephritis- Primary Unspecified pyelonephritis Acute cystitis without hematuria Acute urinary retention SIRS due to infectious process with acute organ dysfunction (CMS/HCC) Bacteremia documented in this encounter Admitting Diagnoses Diagnosis Acute cystitis without hematuria documented in this encounter Administered Medications Inactive Administered Medications - up to 3 most recent administrations Medication Order MAR Action Action Date Dose Rate Site acetaminophen (TYLENOL) tablet 1,000 mg 1,000 mg, oral, Once, On 05/01/24 at 2236, For 1 dose Given 05/01/2024 10:44 PM EST 1,000 mg acetaminophen (TYLENOL) tablet 650 mg 650 mg, oral, Every 4 hours PRN, mild pain, headaches, fever - temperature GREATER than 38 C (100.4 F), Starting on 05/01/24 at 2239 Given 05/02/2024 2:56 AM EST 650 mg acetaminophen (TYLENOL) tablet 650 mg 650 mg, oral, Every 6 hours PRN, mild pain, fever - temperature GREATER than 38 C (100.4 F), Starting on 05/02/24 at 1434 Given 05/05/2024 3:45 AM EST 650 mg Given 05/04/2024 9:46 PM EST 650 mg Given 05/04/2024 3:05 PM EST 650 mg atorvastatin (LIPITOR) tablet 40 mg 40 mg, oral, Daily, First dose on 05/02/24 at 0900 Given 05/05/2024 8:17 AM EST 40 mg Given 05/04/2024 9:54 AM EST 40 mg Given 05/03/2024 10:06 AM EST 40 mg mqniokktxq-wyiyzrkgvewvz-yqevppra (FIORICET, ESGIC) 50-325-40 mg per tablet 1 tablet 1 tablet, oral, Once, On 05/02/24 at 0400, For 1 dose Given 05/02/2024 3:50 AM EST 1 tablet adnkkjywrx-nvumscdzocbrl-xqroyhki (FIORICET, ESGIC) 50-325-40 mg per tablet 1 tablet 1 tablet, oral, Once, On 05/02/24 at 1300, For 1 dose Given 05/02/2024 12:47 PM EST 1 tablet cefepime (MAXIPIME) 2 g in sterile water 20 mL IV syringe 2 g, intravenous, at 240 mL/hr, Administer over 5 Minutes, Every 8 hours, First dose on 05/02/24 at 1215, For 5 days, Indication: Bacteremia, Urinary Tract/Genitourinary Given 05/03/2024 6:50 AM EST 2 g 240 mL/hr Given 05/02/2024 10:04 PM EST 2 g 240 mL/hr Given 05/02/2024 12:30 PM EST 2 g 240 mL/hr cefepime (MAXIPIME) 2 g in sterile water 20 mL IV syringe 2 g, intravenous, at 240 mL/hr, Administer over 5 Minutes, Every 12 hours, First dose (after last modification) on Fri05/04/24 at 0015, For 11 doses, Indication: Bacteremia, Urinary Tract/Genitourinary Given 05/04/2024 12:09 AM EST 2 g 24 0 mL/hr cefTRIAXone (ROCEPHIN) 1 g in sterile water 10 mL IV syringe 1 g, intravenous, at 200 mL/hr, Administer over 3 Minutes, Once, On [facility] 05/01/24 at 2220, For 1 dose, Do not administer simultaneously with any calcium containing solutions via a Y-site in any patient., Indication: Urinary Tract/Genitourinary Given 05/01/2024 10:44 PM EST 1 g 20 0 mL/hr cefTRIAXone (ROCEPHIN) 2 g in sterile water 20 mL IV syringe 2 g, intravenous, at 400 mL/hr, Administer over 3 Minutes, Every 24 hours, First dose on Fri05/04/24 at 1130, For 12 days, Do not administer simultaneously with any calcium containing solutions via a Y-site in any patient., Indication: Bacteremia Given 05/05/2024 12:11 PM EST 2 g 400 mL/hr Given 05/04/2024 12:13 PM EST 2 g 400 mL/hr desmopressin (DDAVP) tablet 0.1 mg 0.1 mg, oral, 2 times daily, First dose on Fri05/02/24 at 0245 Given 05/05/2024 8:16 AM EST 0.1 mg Given 05/04/2024 9:44 PM EST 0.1 mg Given 05/04/2024 9:49 AM EST 0.1 mg doxepin (SINEquan) capsule 75 mg 75 mg, oral, 2 times daily, First dose on Fri05/02/24 at 0245 Given 05/05/2024 8:17 AM EST 75 mg Given 05/04/2024 9:43 PM EST 75 mg Given 05/04/2024 9:48 AM EST 75 mg enoxaparin (LOVENOX) injection 40 mg 40 mg, subcutaneous, Every 12 hours scheduled, First dose on [facility] 05/01/24 at 2248, Indication: VTE/PE Prophylaxis Given 05/05/2024 8:18 AM EST 40 mg Left Upper Abdomen Given 05/04/2024 9:45 PM EST 40 mg Le ft Lower Abdomen Given 05/04/2024 10:09 AM EST 40 mg L eft Lower Abdomen famotidine (PEPCID) tablet 40 mg 40 mg, oral, Nightly, First dose on Fri05/02/24 at 0245 Given 05/04/2024 9:44 PM EST 40 mg Given 05/03/2024 8:26 PM EST 40 mg Given 05/02/2024 9:55 PM EST 40 mg ferrous sulfate tablet 325 mg 325 mg, oral, Daily, First dose on Fri05/02/24 at 0900, Ordered as ferrous sulfate. 325 mg ferrous sulfate = 65 mg elemental iron. Given 05/05/2024 8:18 AM EST 325 mg Given 05/04/2024 9:49 AM EST 325 mg Given 05/03/2024 10:07 AM EST 325 mg iopamidoL (ISOVUE-370) 370 mg iodine /mL (76 %) injection 90 mL 90 mL, intravenous, Once in imaging, Starting on Fri05/03/24 at 1438, For 1 dose Given 05/03/2024 2:40 PM EST 90 mL ketorolac (TORADOL) injection 15 mg 15 mg, intravenous, Once, On Fri05/03/24 at 0000, For 1 dose Given 05/03/2024 12:02 AM EST 15 mg ketorolac (TORADOL) injection 15 mg 15 mg, intravenous, Once, On Fri05/04/24 at 0845, For 1 dose Given 05/04/2024 10:01 AM EST 15 mg ketorolac (TORADOL) injection 15 mg 15 mg, intravenous, Once, On Fri05/04/24 at 1815, For 1 dose Given 05/04/2024 6:05 PM EST 15 mg lactated Ringer's bolus 500 mL 500 mL, intravenous, at 500 mL/hr, Administer over 1 Hours, Once, On Fri05/02/24 at 0845, For 1 dose New Bag 05/02/2024 8:28 AM EST 500 mL 500 mL/hr lactated Ringer's infusion 100 mL/hr, intravenous, Continuous, Starting on 05/01/24 at 2248 New Bag 05/05/2024 8:18 AM EST 100 mL/hr 100 mL/hr New Bag 05/04/2024 9:32 PM EST 100 mL/hr 100 mL/hr Rate/Dose Verify 05/04/2024 3:16 PM EST 100 mL/hr 100 mL/ hr levothyroxine (SYNTHROID, LEVOTHROID) tablet 75 mcg 75 mcg, oral, Every morning before breakfast, First dose on Fri05/03/24 at 0700, ORAL ROUTE: take on an empty stomach and separate from other medications. ENTERAL TUBE ROUTE: If newly initiated enteral nutrition duration is over 5 days, hold enteral nutrition 1 hour before and after drug administration, per ASPEN guidelines. Given 05/05/2024 6:23 AM EST 75 mcg Given 05/04/2024 6:24 AM EST 75 mcg Given 05/03/2024 6:51 AM EST 75 mcg magnesium oxide (MAG-OX) tablet 400 mg 400 mg, oral, Once, On 05/01/24 at 1832, For 1 dose Given 05/01/2024 7:00 PM EST 400 mg ondansetron (PF) (ZOFRAN) injection 4 mg 4 mg, intravenous, Once, On 05/01/24 at 1727, For 1 dose Given 05/01/2024 7:01 PM EST 4 mg ondansetron (PF) (ZOFRAN) injection 4 mg 4 mg, intravenous, Every 8 hours PRN, vomiting, nausea, Starting on 05/01/24 at 2239, -ONLY give IV if patient is unable to take orally. -If inadequate response within 30 minutes, proceed to next-line agent or contact provider if no further options ordered. Given 05/05/2024 8:21 AM EST 4 mg ondansetron ODT (ZOFRAN-ODT) disintegrating tablet 4 mg 4 mg, oral, Every 8 hours PRN, vomiting, nausea, Starting on 05/01/24 at 2239, -Give IV if patient is unable to take orally. -If inadequate response within 30 minutes, proceed to next-line agent or contact provider if no further options ordered. For ODT tablets: -Do not remove from blister pack until just before administering. -Patient should allow tablet to dissolve on tongue. Given 05/04/2024 9:55 PM EST 4 mg Given 05/04/2024 9:58 AM EST 4 mg Given 05/03/2024 8:29 PM EST 4 mg oxyBUTYnin (DITROPAN) tablet 2.5 mg 2.5 mg, oral, 2 times daily, First dose on Fri05/02/24 at 0900 Given 05/05/2024 8:17 AM EST 2.5 mg Given 05/04/2024 9:44 PM EST 2.5 mg Given 05/04/2024 9:50 AM EST 2.5 mg oxyCODONE (ROXICODONE) immediate release tablet 5 mg 5 mg, oral, Once as needed, severe pain, Starting on Fri05/05/24 at 1232, For 1 dose Given 05/05/2024 1:17 PM EST 5 mg pantoprazole (PROTONIX) EC tablet 40 mg 40 mg, oral, Every morning before breakfast, First dose on Fri05/02/24 at 0700, Do not crush, chew, or split. Given 05/05/2024 6:24 AM EST 40 mg Given 05/04/2024 6:24 AM EST 40 mg Given 05/03/2024 6:51 AM EST 40 mg polyethylene glycol (MIRALAX) packet 17 g 17 g, oral, Daily, First dose on Fri05/05/24 at 0930 Given 05/05/2024 9:28 AM EST 17 g pregabalin (LYRICA) capsule 200 mg 200 mg, oral, 2 times daily, First dose on Fri05/02/24 at 0245 Given 05/05/2024 8:17 AM EST 200 mg Given 05/04/2024 9:43 PM EST 200 mg Given 05/04/2024 9:45 AM EST 200 mg prochlorperazine (COMPAZINE) injection 10 mg 10 mg, intravenous, Every 6 hours PRN, nausea, vomiting, Starting on 05/01/24 at 2239, 2nd Line Option: -ONLY give IV if patient is unable to take orally. -Give IM if patient does not have IV Access -If inadequate response within 30 minutes, proceed to next-line agent or contact provider if no further options ordered. prochlorperazine (COMPAZINE) suppository 25 mg 25 mg, rectal, Every 12 hours PRN, nausea, vomiting, Starting on 05/01/24 at 2239, 2nd Line Option: -ONLY give AK if patient is unable to take orally and cannot receive IV/IM. -If inadequate response within 30 minutes, proceed to next-line agent or contact provider if no further options ordered. prochlorperazine (COMPAZINE) tablet 10 mg 10 mg, oral, Every 6 hours PRN, nausea, vomiting, Starting on 05/01/24 at 2239, 2nd Line Option: -Give IV or IM if patient is unable to take orally. -If inadequate response within 30 minutes, proceed to next-line agent or contact provider if no further options ordered. QUEtiapine (SEROquel) tablet 200 mg 200 mg, oral, Nightly, First dose on Fri05/02/24 at 0245 Given 05/04/2024 9:45 PM EST 200 mg Given 05/03/2024 8:26 PM EST 200 mg Given 05/02/2024 9:55 PM EST 200 mg QUEtiapine (SEROquel) tablet 50 mg 50 mg, oral, Daily, First dose on [place] 05/02/24 at 0900 Given 05/05/2024 8:16 AM EST 50 mg Given 05/04/2024 9:53 AM EST 50 mg Given 05/03/2024 10:07 AM EST 50 mg senna (SENOKOT) tablet 8.6 mg 8.6 mg (1 tablet), oral, 2 times daily, First dose on Fri05/05/24 at 0930 Given 05/05/2024 9:28 AM EST 8.6 mg sodium chloride 0.9 % bolus 500 mL 500 mL, intravenous, at 1,000 mL/hr, Administer over 30 Minutes, Once, On [facility] 05/01/24 at 1727, For 1 dose New Bag 05/01/2024 7:01 PM EST 500 mL 1000 mL/hr sodium chloride 0.9 % flush 10 mL 10 mL, intravenous, 2 times daily, First dose on 05/01/24 at 2248 Given 05/05/2024 8:18 AM EST 10 mL Given 05/04/2024 9:46 PM EST 10 mL Given 05/04/2024 10:08 AM EST 10 mL sodium chloride 0.9 % flush 10 mL 10 mL, intravenous, As needed, line care, Starting on [facility] 05/01/24 at 2239 Given 05/03/2024 2:40 PM EST 10 mL tiZANidine (ZANAFLEX) tablet 4 mg 4 mg, oral, 2 times daily PRN, muscle spasms, Starting on [place] 05/02/24 at 0219 Given 05/02/2024 3:46 AM EST 4 mg traMADoL (ULTRAM) tablet 50 mg 50 mg, oral, 2 times daily PRN, breakthrough pain, Starting on 05/02/24 at 0219 Given 05/05/2024 8:16 AM EST 50 mg Given 05/04/2024 9:48 AM EST 50 mg Given 05/02/2024 2:56 AM EST 50 mg valACYclovir (VALTREX) tablet 500 mg 500 mg, oral, Daily, First dose on 05/02/24 at 0900, Indication: Herpes Virus Given 05/05/2024 8:17 AM EST 500 mg Given 05/04/2024 9:51 AM EST 500 mg Given 05/03/2024 10:06 AM EST 500 mg venlafaxine XR (EFFEXOR-XR) 24 hr capsule 150 mg 150 mg, oral, Daily, First dose on 05/02/24 at 0900, Capsule may be swallowed whole, or may be opened and its contents sprinkled on applesauce if consumed immediately without chewing. Do not crush or chew. Given 05/05/2024 8:17 AM EST 150 mg Given 05/04/2024 9:47 AM EST 150 mg Given 05/03/2024 10:06 AM EST 150 mg documented in this encounter Discontinued Medications Medication Sig Discontinue Reason Start Date End Da te cefdinir (OMNICEF) 300 mg capsule Take 1 capsule (300 mg total) by mouth 2 (two) times a day for 7 days. 05/05/2024 05/05/2024 documented as of this encounter Historical Medications * This list may reflect changes made after this encounter. zaleplon (SONATA) 5 mg capsule Take 1 capsule (5 mg total) by mouth at bedtime. 09/25/2018 venlafaxine XR (EFFEXOR-XR) 150 mg 24 hr capsule Take 1 capsule (150 mg total) by mouth 1 (one) time each day. 07/28/2015 valACYclovir (VALTREX) 500 mg tablet Take 1 tablet (500 mg total) by mouth 1 (one) time each day. 02/24/2024 traMADoL (ULTRAM) 50 mg tablet Take 1 tablet (50 mg total) by mouth 2 (two) times a day if needed (breakthrough pain). 10/27/2015 tiZANidine (ZANAFLEX) 4 mg tablet Take 1 tablet (4 mg total) by mouth 2 (two) times a day if needed for muscle spasms. 04/17/2024 QUEtiapine (SEROquel) 200 mg tablet Take 1 tablet (200 mg total) by mouth at bedtime. QUEtiapine (SEROquel) 50 mg tablet Take 1 tablet (50 mg total) by mouth 1 (one) time each day. 09/25/2018 pregabalin (LYRICA) 200 mg capsule Take 1 capsule (200 mg total) by mouth 2 (two) times a day. omeprazole (PriLOSEC) [address] capsule Take 1 capsule (40 mg total) by mouth 1 (one) time each day. Myrbetriq 25 mg 24 hr tablet Take 1 tablet (25 mg total) by mouth 1 (one) time each day. ferrous sulfate 325 mg (65 mg iron) EC tablet Take 1 tablet (325 mg total) by mouth 1 (one) time each day. famotidine (PEPCID) 40 mg tablet Take 1 tablet (40 mg total) by mouth at bedtime. doxepin (SINEquan) 75 mg capsule Take 1 capsule (75 mg total) by mouth 2 (two) times a day. 10/10/2015 desmopressin (DDAVP) 0.1 mg tablet Take 1 tablet (0.1 mg total) by mouth 2 (two) times a day. atorvastatin (LIPITOR) 40 mg tablet Take 1 tablet (40 mg total) by mouth 1 (one) time each day. added in this encounter Active and Recently Administered Medications Times are shown in EST. Scheduled Medication Order 05/03/2024 05/04/2024 05/05/2024 acetaminophen (TYLENOL) tablet 325 mg 325 mg, oral, Once, On 05/02/24 at 1500, For 1 dose atorvastatin (LIPITOR) tablet 40 mg 40 mg, oral, Daily, First dose on 05/02/24 at 0900 1006 (Given - Provider: Susana Reyez RN) 0954 (Given - Provider: Paige Nuñez) 0817 (Given - Provider: Susana Reyez RN) cefepime (MAXIPIME) 2 g in sterile water 20 mL IV syringe (CANCELED) 2 g, intravenous, at 240 mL/hr, Administer over 5 Minutes, Every 8 hours, First dose on Fri05/02/24 at 1215, For 5 days, Indication: Bacteremia, Urinary Tract/Genitourinary 0650 (Given - Provider: Oksana Spivey, RADHA) cefepime (MAXIPIME) 2 g in sterile water 20 mL IV syringe (CANCELED) 2 g, intravenous, at 240 mL/hr, Administer over 5 Minutes, Every 12 hours, First dose (after last modification) on Fri05/04/24 at 0015, For 11 doses, Indication: Bacteremia, Urinary Tract/Genitourinary 0009 (Given - Provider: Adri Sood, RADHA) cefTRIAXone (ROCEPHIN) 2 g in sterile water 20 mL IV syringe 2 g, intravenous, at 400 mL/hr, Administer over 3 Minutes, Every 24 hours, First dose on Fri05/04/24 at 1130, For 12 days, Do not administer simultaneously with any calcium containing solutions via a Y-site in any patient., Indication: Bacteremia 1213 (Given - Provider: Paige Nuñez) 1211 (Given - Provider: Susana Reyez, RADHA) desmopressin (DDAVP) tablet 0.1 mg 0.1 mg, oral, 2 times daily, First dose on Fri05/02/24 at 0245 1006 (Given - Provider: Susana Reyez RN)2030 (Given - Provider: Adri Sood, RADHA) 0949 (Given - Provider: Paige Nuñez)2144 (Given - Provider: Sirena Mccarthy RN) 0816 (Given - Provider: Susana Reyez RN)2100 (Canceled Entry - Provider: Automatic Discharge Provider - Comment: Automatically canceled at discontinue of medication order) doxepin (SINEquan) capsule 75 mg 75 mg, oral, 2 times daily, First dose on Fri05/02/24 at 0245 1006 (Given - Provider: Susana Reyez RN)2124 (Given - Provider: Adri Sood, RADHA) 0948 (Given - Provider: Paige Nuñez)2143 (Given - Provider: Sirena Mccarthy, RADHA) 0817 (Given - Provider: Susana Reyez RN)2100 (Canceled Entry - Provider: Automatic Discharge Provider - Comment: Automatically canceled at discontinue of medication order) enoxaparin (LOVENOX) injection 40 mg 40 mg, subcutaneous, Every 12 hours scheduled, First dose on 05/01/24 at 2248, Indication: VTE/PE Prophylaxis 1007 (Given - Provider: Susana Reyez, RADHA)2030 (Given - Provider: Adri Sood RN) 1009 (Given - Provider: Paige Nuñez)214 (Given - Provider: Sirena Mccarthy RN) 0818 (Given - Provider: Susana Reyez RN)2100 (Canceled Entry - Provider: Automatic Discharge Provider - Comment: Automatically canceled at discontinue of medication order) famotidine (PEPCID) tablet 40 mg 40 mg, oral, Nightly, First dose on 05/02/24 at 0245 6 (Given - Provider: Adri Sood, RADHA) 214 (Given - Provider: Sirena Mccarthy RN) 2100 (Canceled Entry - Provider: Automatic Discharge Provider - Comment: Automatically canceled at discontinue of medication order) ferrous sulfate tablet 325 mg 325 mg, oral, Daily, First dose on 05/02/24 at 0900, Ordered as ferrous sulfate. 325 mg ferrous sulfate = 65 mg elemental iron. 1007 (Given - Provider: Susana Reyez RN) 0949 (Given - Provider: Paige Nuñez) 0818 (Given - Provider: Susana Reyez RN) iopamidoL (ISOVUE-370) 370 mg iodine /mL (76 %) injection 90 mL (COMPLETED) 90 mL, intravenous, Once in imaging, Starting on Fri05/03/24 at 1438, For 1 dose 1440 (Given - Provider: Narcisa Tamayo) ketorolac (TORADOL) injection 15 mg (COMPLETED) 15 mg, intravenous, Once, On Fri05/03/24 at 0000, For 1 dose 0002 (Given - Provider: Oksana Spivey RN - Comment: fever) ketorolac (TORADOL) injection 15 mg (COMPLETED) 15 mg, intravenous, Once, On Fri05/04/24 at 0845, For 1 dose 1001 (Given - Provider: Paige Nuñez) ketorolac (TORADOL) injection 15 mg (COMPLETED) 15 mg, intravenous, Once, On Fri05/04/24 at 1815, For 1 dose 1805 (Given - Provider: Magaly Denise RN) levothyroxine (SYNTHROID, LEVOTHROID) tablet 75 mcg 75 mcg, oral, Every morning before breakfast, First dose on Fri05/03/24 at 0700, ORAL ROUTE: take on an empty stomach and separate from other medications. ENTERAL TUBE ROUTE: If newly initiated enteral nutrition duration is over 5 days, hold enteral nutrition 1 hour before and after drug administration, per ASPEN guidelines. 0651 (Given - Provider: Oksana Spivey, RADHA) 0624 (Given - Provider: Adri Sood, RADHA) 0623 (Given - Provider: Adri Sood, RADHA) oxyBUTYnin (DITROPAN) tablet 2.5 mg 2.5 mg, oral, 2 times daily, First dose on Fri05/02/24 at 0900 1006 (Given - Provider: Susana Reyez RN)202 (Given - Provider: Adri Sood, RADHA) 0950 (Given - Provider: Paige Nuñez)2144 (Given - Provider: Sirena Mccarthy, RADHA) 0817 (Given - Provider: Susana Reyez, RADHA)2100 (Canceled Entry - Provider: Automatic Discharge Provider - Comment: Automatically canceled at discontinue of medication order) pantoprazole (PROTONIX) EC tablet 40 mg 40 mg, oral, Every morning before breakfast, First dose on Fri05/02/24 at 0700, Do not crush, chew, or split. 0651 (Given - Provider: Oksana Spivey RN) 0624 (Given - Provider: Adri Sood, RADHA) 0624 (Given - Provider: Adri Sood, RADHA) polyethylene glycol (MIRALAX) packet 17 g 17 g, oral, Daily, First dose on Fri05/05/24 at 0930 0928 (Given - Provider: Susana Reyez, RADHA) pregabalin (LYRICA) capsule 200 mg 200 mg, oral, 2 times daily, First dose on Fri05/02/24 at 0245 1007 (Given - Provider: Susana Reyez RN)2029 (Given - Provider: Adri Sood RN) 0945 (Given - Provider: Paige Nuñez)214 (Given - Provider: Sirena Mccarthy, RADHA) 0817 (Given - Provider: Susana Reyez RN)2100 (Canceled Entry - Provider: Automatic Discharge Provider - Comment: Automatically canceled at discontinue of medication order) QUEtiapine (SEROquel) tablet 200 mg 200 mg, oral, Nightly, First dose on 05/02/24 at 0245 2025 (Given - Provider: Adri Sood RN) 214 (Given - Provider: Sirena Mccarthy RN) 2100 (Canceled Entry - Provider: Automatic Discharge Provider - Comment: Automatically canceled at discontinue of medication order) QUEtiapine (SEROquel) tablet 50 mg 50 mg, oral, Daily, First dose on 05/02/24 at 0900 1007 (Given - Provider: Susana Reyez RN) 0953 (Given - Provider: Paige Nuñez) 0816 (Given - Provider: Susana Reyez RN) senna (SENOKOT) tablet 8.6 mg 8.6 mg (1 tablet), oral, 2 times daily, First dose on Fri05/05/24 at 0930 0928 (Given - Provider: Susana Reyez RN)2100 (Canceled Entry - Provider: Automatic Discharge Provider - Comment: Automatically canceled at discontinue of medication order) sodium chloride 0.9 % flush 10 mL(Linked Group 1) 10 mL, intravenous, 2 times daily, First dose on Fri05/01/24 at 2248 1009 (Not Given - Provider: Susana Reyez RN - Reason: Other)2031 (Given - Provider: Adri Sood RN) 1008 (Given - Provider: Paige Nuñez)214 (Given - Provider: Sirena Mccarthy RN) 0818 (Given - Provider: Susana Reyez RN)2100 (Canceled Entry - Provider: Automatic Discharge Provider - Comment: Automatically canceled at discontinue of medication order) sodium chloride 0.9 % flush 10 mL 10 mL, intravenous, Once, On Fri05/03/24 at 1500, For 1 dose 1545 (Not Given - Provider: Susana Reyez RN - Reason: Other) valACYclovir (VALTREX) tablet 500 mg 500 mg, oral, Daily, First dose on 05/02/24 at 0900, Indication: Herpes Virus 1006 (Given - Provider: Susana Reyez RN) 0951 (Given - Provider: Paige Nuñez) 0817 (Given - Provider: Susana Reyez RN) venlafaxine XR (EFFEXOR-XR) 24 hr capsule 150 mg 150 mg, oral, Daily, First dose on 05/02/24 at 0900, Capsule may be swallowed whole, or may be opened and its contents sprinkled on applesauce if consumed immediately without chewing. Do not crush or chew. 1006 (Given - Provider: Susana Reyez RN) 0947 (Given - Provider: Paige Nuñez) 0817 (Given - Provider: Susana Reyez RN) Continuous Medication Order 05/03/2024 05/04/2024 05/05/2024 lactated Ringer's infusion 100 mL/hr, intravenous, Continuous, Starting on 05/01/24 at 2248 1005 (New Bag - Provider: Susana Reyez RN) 0122 (New Bag - Provider: Viktoria Rashid RN)1137 (New Bag - Provider: Magaly Denise RN)1516 (Rate/Dose Verify - Provider: Magaly Denise RN)2132 (New Bag - Provider: Sirena Mccarthy RN) 0818 (New Bag - Provider: Susana Reyez RN)2124 (Due: Stopped) PRN Medication Order 05/03/2024 05/04/2024 05/05/2024 acetaminophen (TYLENOL) tablet 650 mg 650 mg, oral, Every 6 hours PRN, mild pain, fever - temperature GREATER than 38 C (100.4 F), Starting on 05/02/24 at 1434 1018 (Given - Provider: Susana Reyez RN)1624 (Given - Provider: Susana Reyez RN) 0132 (Given - Provider: Adri Sood RN)1505 (Given - Provider: Magaly Denise RN)2146 (Given - Provider: Sirena Mccarthy RN) 0345 (Given - Provider: Adri Sood RN) ondansetron (PF) (ZOFRAN) injection 4 mg(Linked Group 2) 4 mg, intravenous, Every 8 hours PRN, vomiting, nausea, Starting on 05/01/24 at 2239, -ONLY give IV if patient is unable to take orally. -If inadequate response within 30 minutes, proceed to next-line agent or contact provider if no further options ordered. 2028 (See Alternative - Provider: Adri Sood RN) 09 (See Alternative - Provider: Paige Nuñez)2154 (See Alternative - Provider: Sirena Mccarthy RN) 0821 (Given - Provider: Susana Reyez RN) ondansetron ODT (ZOFRAN-ODT) disintegrating tablet 4 mg(Linked Group 2) 4 mg, oral, Every 8 hours PRN, vomiting, nausea, Starting on 05/01/24 at 2239, -Give IV if patient is unable to take orally. -If inadequate response within 30 minutes, proceed to next-line agent or contact provider if no further options ordered. For ODT tablets: -Do not remove from blister pack until just before administering. -Patient should allow tablet to dissolve on tongue. 2028 (Given - Provider: Adri Sood RN) 09 (Given - Provider: Paige Nuñez)2154 (Given - Provider: Sirena Mccarthy RN) 0821 (See Alternative - Provider: Susana Reyez, RADHA) oxyCODONE (ROXICODONE) immediate release tablet 5 mg (COMPLETED) 5 mg, oral, Once as needed, severe pain, Starting on Fri05/05/24 at 1232, For 1 dose 1317 (Given - Provider: Susana Reyez, RADHA) prochlorperazine (COMPAZINE) injection 10 mg(Linked Group 3) 10 mg, intravenous, Every 6 hours PRN, nausea, vomiting, Starting on 05/01/24 at 2239, 2nd Line Option: -ONLY give IV if patient is unable to take orally. -Give IM if patient does not have IV Access -If inadequate response within 30 minutes, proceed to next-line agent or contact provider if no further options ordered. prochlorperazine (COMPAZINE) suppository 25 mg(Linked Group 3) 25 mg, rectal, Every 12 hours PRN, nausea, vomiting, Starting on 05/01/24 at 2239, 2nd Line Option: -ONLY give AK if patient is unable to take orally and cannot receive IV/IM. -If inadequate response within 30 minutes, proceed to next-line agent or contact provider if no further options ordered. prochlorperazine (COMPAZINE) tablet 10 mg(Linked Group 3) 10 mg, oral, Every 6 hours PRN, nausea, vomiting, Starting on 05/01/24 at 2239, 2nd Line Option: -Give IV or IM if patient is unable to take orally. -If inadequate response within 30 minutes, proceed to next-line agent or contact provider if no further options ordered. sodium chloride 0.9 % flush 10 mL(Linked Group 1) 10 mL, intravenous, As needed, line care, Starting on 05/01/24 at 2239 1440 (Given - Provider: Narcisa Tamayo) tiZANidine (ZANAFLEX) tablet 4 mg 4 mg, oral, 2 times daily PRN, muscle spasms, Starting on 05/02/24 at 0219 traMADoL (ULTRAM) tablet 50 mg 50 mg, oral, 2 times daily PRN, breakthrough pain, Starting on 05/02/24 at 0219 0948 (Given - Provider: Paige Nuñez) 0816 (Given - Provider: Susana Reyez RN) Linked Groups Order Group 1: Insert peripheral IV (COMPLETED) STAT, Once, On 05/01/24 at 2240, For 1 occurrence And Maintain IV access (CANCELED) Until discontinued, Starting on 05/01/24 at 2240, Until Specified And Saline lock IV (COMPLETED) Routine, Once, On 05/01/24 at 2240, For 1 occurrence And sodium chloride 0.9 % flush 10 mLJump to med 10 mL, intravenous, 2 times daily, First dose on 05/01/24 at 2248 And sodium chloride 0.9 % flush 10 mLJump to med 10 mL, intravenous, As needed, line care, Starting on 05/01/24 at 2239 Group 2: ondansetron ODT (ZOFRAN-ODT) disintegrating tablet 4 mgJump to med 4 mg, oral, Every 8 hours PRN, vomiting, nausea, Starting on 05/01/24 at 2239, -Give IV if patient is unable to take orally. -If inadequate response within 30 minutes, proceed to next-line agent or contact provider if no further options ordered. For ODT tablets: -Do not remove from blister pack until just before administering. -Patient should allow tablet to dissolve on tongue. Or ondansetron (PF) (ZOFRAN) injection 4 mgJump to med 4 mg, intravenous, Every 8 hours PRN, vomiting, nausea, Starting on 05/01/24 at 2239, -ONLY give IV if patient is unable to take orally. -If inadequate response within 30 minutes, proceed to next-line agent or contact provider if no further options ordered. Group 3: prochlorperazine (COMPAZINE) tablet 10 mgJump to med 10 mg, oral, Every 6 hours PRN, nausea, vomiting, Starting on 05/01/24 at 2239, 2nd Line Option: -Give IV or IM if patient is unable to take orally. -If inadequate response within 30 minutes, proceed to next-line agent or contact provider if no further options ordered. Or prochlorperazine (COMPAZINE) injection 10 mgJump to med 10 mg, intravenous, Every 6 hours PRN, nausea, vomiting, Starting on 05/01/24 at 2239, 2nd Line Option: -ONLY give IV if patient is unable to take orally. -Give IM if patient does not have IV Access -If inadequate response within 30 minutes, proceed to next-line agent or contact provider if no further options ordered. Or prochlorperazine (COMPAZINE) suppository 25 mgJump to med 25 mg, rectal, Every 12 hours PRN, nausea, vomiting, Starting on 05/01/24 at 2239, 2nd Line Option: -ONLY give AK if patient is unable to take orally and cannot receive IV/IM. -If inadequate response within 30 minutes, proceed to next-line agent or contact provider if no further options ordered. documented in this encounter Orders Medications Ordered That Pk ht Not Have Been Administered Count Last Ordered Date First Ordered Date sodium chloride 0.9 % flush 10 mL 1 025 acetaminophen (TYLENOL) tablet 325 mg 05/2024 acetaminophen (TYLENOL) tablet 650 mg 1 05/2024 qjmhixmott-yqmrtbgvttefz-sbn feine (FIORICET, ESGIC) 50-325-40 mg per tablet 1 tablet 1 05/02/2024 cefTRIAXone (ROCEPHIN) 1 g i n sterile water 10 mL IV syringe 1 05/01/2024 prochlorperazine (COMPAZINE) injection 10 mg 1 05/01/2024 prochlorperazine (COMPAZINE) suppository 25 mg 1 05/01/2024 prochlorperazine (COMPAZINE) tablet 10 mg 1 05/01/2024 Lab Orders Without Results Count Last Ordered D ate First Ordered Date POCT GLUCOSE, BLOOD 1 05/01/2024 Nursing Count Last Ordered Date First Orde red Date VITAL SIGNS 2 05/01/2024 Consult Count Last Ordered Date First Orde red Date POST ACUTE HOME HEALTH CARE REQUEST 1 05/05 IP CONSULT TO INFECTIOUS DISEASES 1 025 Respiratory Care Count Last Ordered Date First Ordered Date OXYGEN THERAPY, ADULT 7 05/04/20242024 IV Count Last Ordered Date First Orde red Date INSERT PERIPHERAL IV 1 05/01/2024 SALINE LOCK IV 1 05/01/2024 Admission Count Last Ordered Date First Orde red Date ADMIT TO INPATIENT 1 05/01/2024 Transfer Count Last Ordered Date First Orde red Date ED TO FLOOR BED REQUEST 1 05/01/2024 Discharge Count Last Ordered Date First Orde red Date DISCHARGE PATIENT 1 05/05/2024 documented in this encounter Additional Health Concerns Infection Onset Date Last Indicated Resolved Time Respiratory Rule-Out 05/01/2024 05/01/2024 025 6:55 PM EST COVID-19 Rule-Out 05/01/2024 05/01/2024 05/01/2024 6:55 PM EST documented as of this encounter Care Teams Big Data Lead Relationship Specialty Start Date End Date Deonte Carmona PA PCP - General Physician Clerical Clerk 05/01/24 documented as of this encounter
--- OUTSIDE RECORDS SUMMARY | 2024-05-14 14:20 | XMS_ITS | Clinical Summary ---
Author Organization [facility] Address [address] [place] [address] Phone Care Team Providers Care Bottle Tester Name Role Phone Deonte Carmona Primary Care Provider Allergies Active Allergy Reactions Criticality Noted Date Comments Zolpidem Unknown 05/01/2024 Trazodone Unknown,Nausea And Vomiting 07/22/19 19 Zolmitriptan Nausea And Vomiting 07/21/2018 Medications atorvastatin (LIPITOR) 40 mg tablet Take 1 tablet (40 mg total) by mouth 1 (one) time each day. Active desmopressin (DDAVP) 0.1 mg tablet Take 1 tablet (0.1 mg total) by mouth 2 (two) times a day. Active doxepin (SINEquan) 75 mg capsule Take 1 capsule (75 mg total) by mouth 2 (two) times a day. 10/10/19 16 Active famotidine (PEPCID) 40 mg tablet Take 1 tablet (40 mg total) by mouth at bedtime. Active ferrous sulfate 325 mg (65 mg iron) EC tablet Take 1 tablet (325 mg total) by mouth 1 (one) time each day. Active Myrbetriq 25 mg 24 hr tablet Take 1 tablet (25 mg total) by mouth 1 (one) time each day. Active omeprazole (PriLOSEC) [address] capsule Take 1 capsule (40 mg total) by mouth 1 (one) time each day. Active pregabalin (LYRICA) 200 mg capsule Take 1 capsule (200 mg total) by mouth 2 (two) times a day. Active QUEtiapine (SEROquel) 50 mg tablet Take 1 tablet (50 mg total) by mouth 1 (one) time each day. 09/26/19 19 Active QUEtiapine (SEROquel) 200 mg tablet Take 1 tablet (200 mg total) by mouth at bedtime. Active tiZANidine (ZANAFLEX) 4 mg tablet Take 1 tablet (4 mg total) by mouth 2 (two) times a day if needed for muscle spasms. 04/17/19 25 Active traMADoL (ULTRAM) 50 mg tablet Take 1 tablet (50 mg total) by mouth 2 (two) times a day if needed (breakthrou gh pain). 10/27/19 16 Active valACYclovir (VALTREX) 500 mg tablet Take 1 tablet (500 mg total) by mouth 1 (one) time each day. 02/24/20 24 Active venlafaxine XR (EFFEXOR-XR) 150 mg 24 hr capsule Take 1 capsule (150 mg total) by mouth 1 (one) time each day. 07/28/19 16 Active zaleplon (SONATA) 5 mg capsule Take 1 capsule (5 mg total) by mouth at bedtime. 09/26/19 19 Active polyethylene glycol (MIRALAX) 17 gram packet Take 17 g by mouth 1 (one) time each day for 10 days. 10 packet 05/06/19 25 025 Active cefdinir (OMNICEF) 300 mg capsule Take 1 capsule (300 mg total) by mouth 2 (two) times a day for 10 days. 20 each 05/05/19 25 025 Active cefdinir (OMNICEF) 300 mg capsule Take 1 capsule (300 mg total) by mouth 2 (two) times a day for 7 days. 14 each 05/05/19 25 025 Discontinued ondansetron ODT (ZOFRAN-ODT) 4 mg disintegrating tablet Dissolve 1 tablet (4 mg total) on top of the tongue every 8 (eight) hours if needed for nausea or vomiting for up to 7 days. 15 tablet 05/05/19 25 025 Active Problems Problem Noted Date Diagnosed Date Pyelonephritis 05/05/2024 Bacteremia 05/05/2024 Acute cystitis without hematuria 05/01/2024 Encounters Date Type Department Care Team Description 05/01/2024 4:39 PM EST - 05/05/2024 1:37 PM EST Hospital Encounter [facility] [address] [place] [address] Lencho Hernandez MD Jones, Christopher, MD Kela, Kashyap Devendrabhai, MD Acute cystitis without hematuria (Primary Dx); Acute urinary retention; SIRS due to infectious process with acute organ dysfunction (CMS/HCC) Discharge Disposition: Home-Health Care c from Last 3 Months Surgical History Surgery Date Site/Laterality Comments APPENDECTOMY OTHER SURGICAL HISTORY Transsphenoidal hypophysectomy OTHER SURGICAL HISTORY Multiple surgeries at [facility] related to cerebral palsy Medical History Medical History Date Comments Diabetes mellitus (CMS/HCC) Hypertension Depression Cerebral palsy (CMS/HCC) Diabetes insipidus (CMS/HCC) Hypothyroidism Hyperlipidemia Migraines Anxiety Chronic anemia GERD (gastroesophageal reflux disease) Insomnia Social History Tobacco Use Types Packs/Day Years [...] PM EST Sexual Orientation Not on file Obstetrics History Last Filed Vital Signs Vital Sign Reading Time Taken Comments Blood Pressure 151/88 05/05/2024 3:09 PM EST Pulse 93 05/05/2024 3:09 PM EST Temperature 36.8 ??C (98.2 ??F) 05/05/2024 3:09 PM ES T Respiratory Rate 20 05/05/2024 3:09 PM EST Oxygen Saturation 93% 05/05/2024 3:09 PM EST Inhaled Oxygen Concentration - - Weight 95.3 kg (210 lb) 05/01/2024 4:49 PM EST Height 146.3 cm (4' 9.6 ) 05/01/2024 4:49 PM EST Body Mass Index 44.5 05/01/2024 4:49 PM EST Plan of Treatment Health Maintenance Due Date Last Done Comments Breast Cancer Screening 1973 Hepatitis B Vaccines (1 of 3 - 19+ 3-dose series) 1992 Cervical Cancer Screening: Pap Smear 1994 Cholesterol Screening (Lipid Panel) 02/27/2022 Colorectal Cancer Screening: Colonoscopy 02/27/2022 Depression Screening 02/27/2022 HIV Screening 02/27/2022 Hepatitis C Screening 02/27/2022 Medicare Annual Wellness Visit 02/27/2022 Social Influencers of Health Screening 02/27/2022 Pneumococcal Vaccine: 50+ Years (2 of 2 - PCV) 09/25/2023 10/11/2020, 02/01/2011 Zoster Vaccines (1 of 2) 09/25/2023 COVID-19 Vaccine (3 - season) 2023 02/14/2021, 07/31/2020 DTaP,Tdap,and Td Vaccines (2 - Td or Tdap) 03/11/2029 03/11/2019 Pneumococcal Vaccine: Pediatrics (0 to 5 Years) and At-Risk Patients (6 to 64 Years) Aged Out 10/11/2020, 02/01/2011 No longer eligibl e based on patient's age to complete this topic Influenza Vaccine Completed 02/24/2024, , 12/15/2021, Additional history exists HIB Vaccines Aged Out No longer eligi [...] patient's age to complete this topic Meningococcal B Vacine Aged Out No lo nger eligible based on patient's age to complete this topic RSV Immunization Patients Under 20 months Aged Out No longer eligible based on patient's age to complete this topic Varicella Vaccines Aged Out No longer eligible based on patient's age to complete this topic Procedures Procedure Name Priority Date/Time Associated Diagnosis Comments POCT GLUCOSE BLOOD Routine 05/05/2024 6: 09 AM EST OXYGEN THERAPY, ADULT Routine 05/04/2024 8:02 AM EST OXYGEN THERAPY, ADULT Routine 05/03/2024 8:[address] ABDOMEN PELVIS W CONTRAST STAT 05/03/2024 2:49 PM EST OXYGEN THERAPY, ADULT Routine 05/03/2024 8:02 AM EST MAGNESIUM Routine 05/03/2024 6:05 AM EST BASIC METABOLIC PANEL Routine 05/03/2024 6:05 AM EST COMPLETE BLOOD COUNT Routine 05/03/2024 6:05 AM EST PHOSPHORUS Routine 05/03/2024 6:05 AM EST OXYGEN THERAPY, ADULT Routine 05/02/2024 8:01 PM EST OXYGEN THERAPY, ADULT Routine 05/02/2024 1:30 PM EST OXYGEN THERAPY, ADULT Routine 05/02/2024 1:30 PM EST OXYGEN THERAPY, ADULT Routine 05/02/2024 1:30 PM EST POCT GLUCOSE BLOOD Routine 05/02/2024 12 :35 PM EST CBC WITH AUTO DIFFERENTIAL Routine 05/02/2024 6:24 AM EST MAGNESIUM Routine 05/02/2024 6:24 AM EST CBC AND DIFFERENTIAL Routine 05/02/2024 6:24 AM EST BASIC METABOLIC [...] FREE T3 STAT 05/01/2024 5:42 PM EST HEPATIC FUNCTION PANEL STAT 05/01/2024 5:42 PM EST MAGNESIUM STAT 05/01/2024 5:42 PM EST BASIC METABOLIC PANEL STAT 05/01/2024 5:42 PM EST ECG 12-LEAD STAT 05/01/2024 5:33 PM EST POCT GLUCOSE BLOOD Routine 05/01/2024 5: 17 PM EST CBC WITH AUTO DIFFERENTIAL STAT 05/01/2024 5:09 PM EST CBC AND DIFFERENTIAL STAT 05/01/2024 5:09 PM EST ECG ANNOTATED 05/01/2024 from Last 3 Months Results * (ABNORMAL) POCT Glucose, blood (05/05/2024 6:09 AM EST) Only the most recent of3 resultswithin the time period is included. [facility] Glucose POCT 104(H) 70 - 100 mg/dL 05/05/2024 6:09 AM EST [facility] Blood Capillary blood specimen / Unknown 05/05/2024 6:09 AM EST 05/05/2024 6:10 AM EST Moses Whyte MD LAB POINT O F CARE TEST DOCKED DEVICE UNSOLICITED RESULTS Final Result [facility] [address] [place] [address], [place] [phone] * CT Abdomen Pelvis w Contrast (05/03/2024 [...] Signed Date: 05/03/2024 15:24 ET Workstation ID: [id number] Transcribed By: Self Edit Transcribed Date: 05/03/2024 [...] Signed Date: 05/03/2024 15:24 ET Workstation ID: [id number] Transcribed By: Self Edit Transcribed Date: 05/03/2024 15:13 ET Moses Whyte MD [facility] CT PROCEDURES F inal Result * (ABNORMAL) Complete blood count (05/03/2024 6:05 AM EST) [facility] WBC 7.2 4.8 - 10.8 K/mcL LAB HEMETOLOGY METHOD 05/03/2024 7:13 AM [facility] RBC 3.20(L) 3.80 - 4.80 M/mcL LAB HEMETOLOGY METHOD 05/03/2024 7:13 AM [facility] Hemoglobin 10.5(L) 11.5 - 16.0 g/dL LAB HEMETOLOGY METHOD 05/03/2024 7:13 AM [facility] Hematocrit 31.9(L) 35.0 - 47.0 % LAB HEMETOLOGY METHOD 05/03/2024 7:13 AM [facility] MCV 99.4(H) 79.0 - 98.0 FL LAB HEMETOLOGY METHOD 05/03/2024 7:13 AM [facility] MCH 32.7(H) 27.0 - 32.0 pcg LAB HEMETOLOGY METHOD 05/03/2024 7:13 AM [facility] MCHC 32.9 32.0 - 37.0 g/dL LAB HEMETOLOGY METHOD 05/03/2024 7:13 AM [facility] RDW 13.9 11.0 - 15.0 % LAB HEMETOLOGY METHOD 05/03/2024 7:13 AM [facility] Platelets 186 130 - 400 K/mcL LAB HEMETOLOGY METHOD 05/03/2024 7:13 AM [facility] MPV 10.8 7.0 - 11.0 FL LAB HEMETOLOGY METHOD 05/03/2024 7:13 AM [facility] NRBC 0.0 <1.0 % LAB HEMETOLOGY METHOD 05/03/2024 7:13 AM EST [facility] NRBC Absolute 0.00 <0.10 K/mcL LAB HEMETOLOGY METHOD 05/03/2024 7:13 AM EST [facility] Blood Venous blood specimen / Unknown Venipuncture / Unknown 05/03/2024 6:05 AM EST 05/03/2024 6:47 AM EST us Moses Whyte MD LAB BLOOD ORDERABLE S Final Result Performing Organization Address City/[facility]/ZIP Co de Phone Number [facility] [address] [place] [address], [place] [phone] * (ABNORMAL) Phosphorus (05/03/2024 6:05 AM EST) Phosphorus 2.2(L) 2.5 - 4.5 mg/dL LAB CHEMISTRY METHOD 05/03/2024 7:27 AM EST [facility] Blood Venous blood specimen / Unknown Venipuncture / Unknown 05/03/2024 6:05 AM EST 05/03/2024 6:48 AM EST us Moses Whyte MD LAB BLOOD ORDERABLE S Final Result [facility] [address] [place] [address], [place] [phone] * Magnesium (05/03/2024 6:05 AM EST) Only the most recent of3 resultswithin the time period is included. Magnesium 1.9 1.9 - 2.6 mg/dL LAB CHEMISTRY METHOD 05/03/2024 7:27 AM EST [facility] Blood Venous blood specimen / Unknown Venipuncture / Unknown 05/03/2024 6:05 AM EST 05/03/2024 6:48 AM EST Moses Whyte MD LAB BLOOD ORDERABLE S Final Result [facility] [address] [place] [address], [place] [phone] * (ABNORMAL) Basic metabolic panel (05/03/2024 6:05 AM EST) Only the most recent of3 resultswithin the time period is included. Sodium 135 133 - 145 mmol/L LAB CHEMISTRY METHOD 05/03/2024 7:27 AM [facility] Potassium 3.7 3.5 - 5.5 mmol/L LAB CHEMISTRY METHOD 05/03/2024 7:27 AM [facility] Chloride 103 96 - 110 mmol/L LAB CHEMISTRY METHOD 05/03/2024 7:27 AM [facility] CO2 25 21 - 32 mmol/L LAB CHEMISTRY METHOD 05/03/2024 7:27 AM [facility] Anion Gap 7 3 - 11 LAB CHEMISTRY METHOD 05/03/2024 7:27 AM [facility] Glucose 107(H) 70 - 100 mg/dL LAB CHEMISTRY METHOD 05/03/2024 7:27 AM [facility] BUN 17 5 - 25 mg/dL LAB CHEMISTRY METHOD 05/03/2024 7:27 AM [facility] Creatinine 0.99 0.50 - 1.10 mg/dL LAB CHEMISTRY METHOD 05/03/2024 7:27 AM [facility] eGFR 70 >=60 mL/min/1. 73m2 LAB CHEMISTRY METHOD 05/03/2024 7:27 AM [facility] Comment:Calculation based on the??Chronic Kidney Disease Epidemiology Collaboration (CKD-EPI) equation refit??without adjustment for race. BUN/Creatinine Ratio 17.2 LAB CHEMISTRY METHOD 05/03/2024 7:27 AM [facility] Calcium 8.8 8.5 - 10.5 mg/dL LAB CHEMISTRY METHOD 05/03/2024 7:27 AM [facility] Blood Venous blood specimen / Unknown Venipuncture / Unknown 05/03/2024 6:05 AM EST 05/03/2024 6:48 AM EST Moses Whyte MD LAB BLOOD ORDERABLE S Final Result [facility] [address] [place] [address], [place] [phone] * (ABNORMAL) CBC auto differential (05/02/2024 6:24 AM EST) Only the most recent of2 resultswithin the time period is included. WBC 16.5(H) 4.8 - 10.8 K/mcL LAB HEMETOLOGY METHOD 05/02/2024 7:33 AM [facility] RBC 3.20(L) 3.80 - 4.80 M/mcL LAB HEMETOLOGY METHOD 05/02/2024 7:33 AM [facility] Hemoglobin 10.7(L) 11.5 - 16.0 g/dL LAB HEMETOLOGY METHOD 05/02/2024 7:33 AM [facility] Hematocrit 32.0(L) 35.0 - 47.0 % LAB HEMETOLOGY METHOD 05/02/2024 7:33 AM [facility] MCV 99.1(H) 79.0 - 98.0 FL LAB HEMETOLOGY METHOD 05/02/2024 7:33 AM [facility] MCH 33.1(H) 27.0 - 32.0 pcg LAB HEMETOLOGY METHOD 05/02/2024 7:33 AM [facility] MCHC 33.4 32.0 - 37.0 g/dL LAB HEMETOLOGY METHOD 05/02/2024 7:33 AM [facility] RDW 14.1 11.0 - 15.0 % LAB HEMETOLOGY METHOD 05/02/2024 7:33 AM [facility] Platelets 202 130 - 400 K/mcL LAB HEMETOLOGY METHOD 05/02/2024 7:33 AM [facility] MPV 10.4 7.0 - 11.0 FL LAB HEMETOLOGY METHOD 05/02/2024 7:33 AM [facility] NRBC 0.0 <1.0 % LAB HEMETOLOGY METHOD 05/02/2024 7:33 AM [facility] NRBC Absolute 0.00 <0.10 K/mcL LAB HEMETOLOGY METHOD 05/02/2024 7:33 AM [facility] Neutrophils Relative 86.7 % LAB HEMETOLOGY METHOD 05/02/2024 7:33 AM [facility] Lymphocytes Relative 3.8 % LAB HEMETOLOGY METHOD 05/02/2024 7:33 AM [facility] Monocytes Relative 8.5 % LAB HEMETOLOGY METHOD 05/02/2024 7:33 AM [facility] Eosinophils Relative 0.2 % LAB HEMETOLOGY METHOD 05/02/2024 7:33 AM [facility] Basophils Relative 0.3 % LAB HEMETOLOGY METHOD 05/02/2024 7:33 AM [facility] Immature Granulocytes Relative 0.5 % LAB HEMETOLOGY METHOD 05/02/2024 7:33 AM [facility] Neutrophils Absolute 14.28(H) 1.50 - 7.00 K/mcL LAB HEMETOLOGY METHOD 05/02/2024 7:33 AM [facility] Lymphocytes Absolute 0.63(L) 1.00 - 5.00 K/mcL LAB HEMETOLOGY METHOD 05/02/2024 7:33 AM EST [facility] Monocytes Absolute 1.40(H) 0.20 - 1.00 K/mcL LAB HEMETOLOGY METHOD 05/02/2024 7:33 AM EST [facility] Eosinophils Absolute 0.03 0.00 - 0.50 K/mcL LAB HEMETOLOGY METHOD 05/02/2024 7:33 AM EST [facility] Basophils Absolute 0.05 0.00 - 0.20 K/mcL LAB HEMETOLOGY METHOD 05/02/2024 7:33 AM EST [facility] Immature Granulocytes Absolute 0.09(H) 0.00 - 0.03 K/[facility] LAB HEMETOLOGY METHOD 05/02/2024 7:33 AM EST [facility] Blood Venous blood specimen / Unknown Venipuncture / Unknown 05/02/2024 6:24 AM EST 05/02/2024 6:35 AM EST us Ezequiel Reeves MD LAB BLOOD ORDERABLES Final Result [facility] [address] [place] [address], * (ABNORMAL) Blood Culture, Peripheral Draw #1 (05/01/2024 10:35 PM EST) Only the most recent of2 resultswithin the time period is included. [facility] Signature Culture, Blood Klebsiella pneumoniae ssp pneumoniae(AA) NATALIA 05/04/2024 8:49 AM EST [facility] Comment: The organism value for this result has been updated. These results have been appended to the previously preliminary verified report. This is an edited result. Previous organism was Gram negative bacilli on 05/03/2024 at 1014 EST. Gram Stain Result Anaerobic bottle Gram negative bacilli(AA) 05/04/2024 8:49 AM EST [facility] Comment:This is an appended report. These results have been appended to a previously preliminary verified report. Blood Venous blood specimen / Unknown Venipuncture / Unknown 05/01/2024 10:35 PM EST 05/01/2024 10:51 PM EST Narrative [facility] - 05/04/2024 8:49 AM EST FOR SUSCEPTIBILITIES, REFER TO PREVIOUS CULTURE FROM 05/01/24 at 2231. Lencho Hernandez MD LAB MICROBIOLOGY - GENERAL ORD ERABLES Final Result Performing Organization Address City/[facility]/ZIP Co de Phone Number [facility] [address] [place] [address], [place] [phone] * (ABNORMAL) Blood culture pathogens molecular study (05/01/2024 10:31 PM EST) [facility] Klebsiella pneumoniae group Detected (A) Not Detected LAB MICROBIOLOGY METHOD 05/02/2024 1:14 PM EST [facility] Blood Venous blood specimen / Unknown Venipuncture / Unknown 05/01/2024 10:31 PM EST 05/01/2024 10:51 PM EST Lencho Hernandez MD LAB MICROBIOLOGY - GENERAL ORD ERABLES Final Result Performing Organization Address [facility]/ZIP Co de Phone Number [facility] [address] [place] [address], [place] [phone] * (ABNORMAL) Urine culture (05/01/2024 9:04 PM EST) Pathologist [facility] Culture, Urine >100,000 CFU/mL Klebsiella pneumoniae ssp pneumoniae(A) NATALIA 05/04/2024 7:37 AM EST [facility] Comment: This is an edited result. [...] MICROBIOLOGY - GENERAL ORD ERABLES Final Result [facility] [address] [place] [address], * (ABNORMAL) Urinalysis with reflex microscopic (05/01/2024 8:52 PM EST) Specific [place] Urine 1.015 1.003 - 1.030 LAB URINALYSIS - AUTOMATED METHOD 05/01/2024 9:35 PM EST [facility] pH, Urine 6.0 5.0 - 8.0 pH LAB URINALYSIS - AUTOMATED METHOD 05/01/2024 9:35 PM EST [facility] Leukocytes, Urine Large(A) Negative LAB URINALYSIS - AUTOMATED METHOD 05/01/2024 9:35 PM EST [facility] Nitrite, Urine Positive(A) Negative LAB URINALYSIS - AUTOMATED METHOD 05/01/2024 9:35 PM [facility] Protein, Urine 100(A) <=Trace mg/dL LAB URINALYSIS - AUTOMATED METHOD 05/01/2024 9:35 PM [facility] Glucose, Urine Negative Negative mg/dL LAB URINALYSIS - AUTOMATED METHOD 05/01/2024 9:35 PM [facility] Ketones, Urine Negative Negative mg/dL LAB URINALYSIS - AUTOMATED METHOD 05/01/2024 9:35 PM [facility] Urobilinogen , Urine 0.2 0.2 - 1.0 mg/dL LAB URINALYSIS - AUTOMATED METHOD 05/01/2024 9:35 PM [facility] Bilirubin, Urine Negative Negative LAB URINALYSIS - AUTOMATED METHOD 05/01/2024 9:35 PM [facility] Blood, Urine Large(A) Negative LAB URINALYSIS - AUTOMATED METHOD 05/01/2024 9:35 PM [facility] RBC, Urine 15.0(H) 0 - 4 /HPF LAB URINALYSIS - AUTOMATED METHOD 05/01/2024 9:35 PM [facility] WBC, Urine 1,157.7(H) 0 - 4 /HPF LAB URINALYSIS - AUTOMATED METHOD 05/01/2024 9:35 PM [facility] Squamous Epithelial, Urine 8 0 - 60 /LPF LAB URINALYSIS - AUTOMATED METHOD 05/01/2024 9:35 PM [facility] Bacteria, Urine Many(A) Negative /HPF LAB URINALYSIS - AUTOMATED METHOD 05/01/2024 9:35 PM [facility] Hyaline Casts, Urine 0.0 0 - 3 /LPF LAB URINALYSIS - AUTOMATED METHOD 05/01/2024 9:35 PM [facility] Urine Urine specimen obtained by clean catch procedure / Unknown Non-blood Collection / Unknown 05/01/2024 8:52 PM EST 05/01/2024 9:14 PM EST us Lencho Hernandez MD LAB URINE ORDERABLES Final Res ult [facility] [address] [place] [address], * XR Chest 2 Views (05/01/2024 7:34 PM EST) Anatomical Region Laterality Modality Body Radiographic Aniyah ging 05/02/2024 9:30 AM EST Impressions 05/02/2024 9:34 AM EST Hypoventilatory exam. ??No acute findings. -------- FINAL REPORT -------- Dictated By: Stefan Ambriz Dictated Date: 05/02/2024 09:30 ET Assigned Physician: Stefan Ambriz Reviewed and Electronically Signed By: Stefan Ambriz Signed Date: 05/02/2024 09:34 ET Workstation ID: [id number] Transcribed By: Self Edit Transcribed Date: 05/02/2024 [...] Dictated Date: 05/02/2024 09:30 ET Assigned Physician: Stefna Ambriz Reviewed and Electronically Signed By: Stefan Ambriz Signed Date: 05/02/2024 09:34 ET Workstation ID: [id number] Transcribed By: Self Edit Transcribed Date: 05/02/2024 09:30 ET Lencho Hernandez MD IM XR PROCEDURES Final Result * Respiratory virus panel molecular study (05/01/2024 5:44 PM EST) Pathologist [facility] Adenovirus Detection by PCR Not Detected Not Detected LAB MICROBIOLOGY METHOD 05/01/2024 6:55 PM EST [facility] Influenza A PCR Not Detected Not Detected LAB MICROBIOLOGY METHOD 05/01/2024 6:55 PM EST [facility] Influenza B PCR Not Detected Not Detected LAB MICROBIOLOGY METHOD 05/01/2024 6:55 PM EST [facility] Coronavirus 229E Not Detected Not Detected LAB MICROBIOLOGY METHOD 05/01/2024 6:55 PM EST [facility] Coronavirus HKU1 Not Detected Not Detected LAB MICROBIOLOGY METHOD 05/01/2024 6:55 PM EST [facility] Coronavirus OC43 Not Detected Not Detected LAB MICROBIOLOGY METHOD 05/01/2024 6:55 PM EST [facility] Coronavirus NL63 Not Detected Not Detected LAB MICROBIOLOGY METHOD 05/01/2024 6:55 PM [facility] Parainfluenza Virus 1 Not Detected Not Detected LAB MICROBIOLOGY METHOD 05/01/2024 6:55 PM [facility] Parainfluenza Virus 2 Not Detected Not Detected LAB MICROBIOLOGY METHOD 05/01/2024 6:55 PM [facility] Parainfluenza Virus 3 Not Detected Not Detected LAB MICROBIOLOGY METHOD 05/01/2024 6:55 PM [facility] Parainfluenza Virus 4 Not Detected Not Detected LAB MICROBIOLOGY METHOD 05/01/2024 6:55 PM [facility] RSV PCR Not Detected Not Detected LAB MICROBIOLOGY METHOD 05/01/2024 6:55 PM EST [facility] Human Metapneumovirus A and B Not Detected Not Detected LAB MICROBIOLOGY METHOD 05/01/2024 6:55 PM EST [facility] Rhinovirus/Entero virus Not Detected Not Detected LAB MICROBIOLOGY METHOD 05/01/2024 6:55 PM EST [facility] Bordetella pertussis Not Detected Not Detected LAB MICROBIOLOGY METHOD 05/01/2024 6:55 PM EST [facility] Bordetella parapertussis Not Detected Not Detected LAB MICROBIOLOGY METHOD 05/01/2024 6:55 PM EST [facility] Mycoplasma pneumo by PCR Not Detected Not Detected LAB MICROBIOLOGY METHOD 05/01/2024 6:55 PM EST [facility] Chlamydia pneumoniae Not Detected Not Detected LAB MICROBIOLOGY METHOD 05/01/2024 6:55 PM EST [facility] SARS COV-2 Not Detected Not Detected LAB MICROBIOLOGY METHOD 05/01/2024 6:55 PM EST [facility] Swab Both anterior nares / Unknown Non-blood Collection / Unknown 05/01/2024 5:44 PM EST 05/01/2024 5:57 PM EST [facility] - 05/01/2024 6:55 PM EST Testing was performed using the [employer] Respiratory Pathogen PCR Assay. All results must [...] MICROBIOLOGY - GENERAL ORD ERABLES Final Result [facility] [address] [place] [address], * Troponin I high sensitivity (05/01/2024 5:42 PM EST) High Sensitivity Troponin I 4 <=54 ng/L LAB CHEMISTRY METHOD 05/01/2024 6:27 PM EST [facility] Blood Venous blood specimen / Unknown Venipuncture / Unknown 05/01/2024 5:42 PM EST 05/01/2024 5:57 PM EST Narrative [facility] - 05/01/2024 6:27 PM EST High levels of biotin in samples may falsely decrease hsTroponin values. ??Use caution when interpreting hsTroponin results in patients taking biotin who exhibit renal impairment (eGFR <60) or in patients taking more than 20 mg/day of biotin. us Lencho Hernandez MD LAB BLOOD ORDERABLES Final Res ult Performing Organization Address [facility]/ZIP Co de Phone Number [facility] [address] [place] [address], [place] [phone] * Thyroid stimulating hormone with reflex to free t4 and free t3 (TSH Reflex) (05/01/2024 5:42 PM EST) Pathologist [facility] TSH 0.84 0.40 - 4.00 mcIU/mL LAB CHEMISTRY METHOD 05/01/2024 6:35 PM EST [facility] Blood Venous blood specimen / Unknown Venipuncture / Unknown 05/01/2024 5:42 PM EST 05/01/2024 5:57 PM EST us Lencho Hernandez MD LAB BLOOD ORDERABLES Final Res ult Performing Organization Address [facility] [facility]/ZIP Co de Phone Number [facility] [address] [place] [address], [place] [phone] * (ABNORMAL) Hepatic function panel (05/01/2024 5:42 PM EST) Total Protein 6.4 6.0 - 8.0 g/dL LAB CHEMISTRY METHOD 05/01/2024 6:27 PM EST [facility] Albumin 3.4 3.2 - 5.0 g/dL LAB CHEMISTRY METHOD 05/01/2024 6:27 PM EST [facility] Total Bilirubin 1.3 0.0 - 1.4 mg/dL LAB CHEMISTRY METHOD 05/01/2024 6:27 PM [facility] Bilirubin, Direct 0.6(H) 0.0 - 0.3 mg/dL LAB CHEMISTRY METHOD 05/01/2024 6:27 PM [facility] Bilirubin, Indirect 0.7 0.0 - 1.1 mg/dL LAB CHEMISTRY METHOD 05/01/2024 6:27 PM [facility] ALT (SGPT) 53 10 - 60 unit/L LAB CHEMISTRY METHOD 05/01/2024 6:27 PM [facility] AST (SGOT) 37 10 - 42 unit/L LAB CHEMISTRY METHOD 05/01/2024 6:27 PM [facility] Alkaline Phosphatase 118 42 - 121 unit/L LAB CHEMISTRY METHOD 05/01/2024 6:27 PM [facility] Blood Venous blood specimen / Unknown Venipuncture / Unknown 05/01/2024 5:42 PM EST 05/01/2024 5:57 PM EST us Lencho Hernnadez MD LAB BLOOD ORDERABLES Final Res ult [facility] [address] [place] [address], * ECG 12 lead (05/01/2024 5:33 PM EST) Ventricular Rate ECG 110 BPM GEMUSE Atrial Rate 110 BPM GEMUSE P-R Interval 128 ms GEMUSE QRS Duration 74 ms GEMUSE Q-T Interval 342 ms GEMUSE QTc 462 ms GEMUSE P Wave [place] 54 degrees GEMUSE R [place] 25 degrees GEMUSE T [place] 12 degrees GEMUSE ECG Interpretation Sinus tachycardia Nonspecific T wave abnormality Abnormal ECG When compared with ECG of 14-JAN-2023 05:15, Nonspecific T wave abnormality now evident in Lateral leads Confirmed by REAL GUERIN ([id number]) on 05/02/2024 2:44:43 PM GEMUSE 05/01/2024 5:33 PM EST 05/02/2024 2:44 PM EST us Lencho Hernandez MD ECG ORDERABLES Final Result GEMUSE * ECG-Annotated (05/01/2024) us Provider Onbase ECG ORDERABLES Final Result from Last [address] [place] [address] [place] [address] MEDICARE Member Subscriber Plan / Payer (Ef fective 2017-Present) Name:Addis Durant Relation to Subscriber:Self Name:Addis Durant Payer ID:[id number] Group ID:[id number] Type:Not on file Address: [place] [address] [address] [phone] Advance Directives Documents on File Type Date Recorded Patient Manager Strategic Sourcing Expl anation Health Care Decision (hx) 01/15/2023 [...] Care Decision (hx) 11/14/2013 AD BRAR DIRECTIVE * Full Code - Default (Latest Code Status on File) Date Activated Date Inactivated Comments 05/01/2024 10:47 PM 05/05/2024 9:29 PM This is order is used when code status has not been discussed with the patient, or code status is otherwise unknown/unconfirmed To update the patient's code status, place a code status order. Do not modify or discontinue any currently active code status orders. Care Teams Bottle Tester Relationship Specialty Start Date End Date Deonte Carmona PA PCP - General Physician Physician Anesthesiologist 05/01/24
--- NOTE | 2024-05-14 14:23 | A.OFFPC_ITS ---
Vital Signs 05/14/24 14:24 Height 4 ft 8 in Weight 198 lb 3.129 oz BMI 44.4 Blood Pressure Location Lt brachial Position Sitting Pulse Source Pulse Oximeter Temp 97.5 F Temp Source Temporal Artery Scan Oxygen Delivery Method Room Air Intake Visit Reasons: [facility] 05/06 UTI Intake Note: Patient is here for [facility] ED FIU follow-up for UTI. Treatment will be completed tomorrow, 05/14/24. [place] Technician Required: No Accompanied by: FINANCE AND ADMINISTRATION MANAGER-Emmie Allergies trazodone Allergy (Unknown, Verified 02/24/24 15:03) hives zolmitriptan [Zomig] Allergy (Unknown, Verified 02/24/24 15:03) hives zolpidem [Ambien] Allergy (Unknown, Verified 02/24/24 15:03) hives Tobacco use date assessed: 08/20/23 Dental Screening Dental Screen Date: 08/20/23 HPI HPI Comments History of Present Illness Details 48 y/o female patient who presents to [facility] today for HDF. Pmhx significant for Cerebral Palsy, Diabetes Insipidus, Hypothyroidism, HLD and Anemia. She was admitted at [facility] on 05/01/24 and discharged on 05/05/24 due to Left Pyelonephritis. She was discharged home on PO Antibiotic Cefdinir 300 mg BID. Pt continues to feel discomfort with urination associated with vaginal itching. She does have h/o recurrent Herpes Labialis and urinary incontinence. [facility] Medical History (Updated 05/14/24 @ 14:35 by Idalia Arenas NP) Pyelonephritis Herpes simplex Depression Anxiety Diabetes insipidus Cerebral palsy Surgical History History of surgery on lower extremity Hx of appendectomy Family History Father No problems noted. Mother No problems noted. Social History Housing: Apartment Alcohol intake: never Patient Tobacco Use Status: Never used Tobacco e-Cigarette/Vaping Use: Never Used Second Hand Smoke Exposure: No service: No Current occupational status: disabled Current occupational exposures/hazards: No Cognitive needs: Yes (wheel chair ) Hearing needs: No Vision needs: Yes Questionnaire Thrive Questionnaire Date Thrive assessed: 02/24/24 ARMANDO-7 AMB Questionnaire ARMANDO-7 Date ARMANDO - 7 assessed: 02/24/24 Source: Developed by Drs. Clayton Meneses, Isabel Ponce, Shailesh Bolanos and colleagues, with an educational josé manuel from [employer]. Review of Systems Const All systems reviewed & are unremarkable except as noted in HPI and below Physical exam (Primary Care) Vital Signs: Last Vital Signs Temp 97.5 F 05/14/24 14:24 Oxygen Delivery Method Room Air 05/14/24 14:24 BMI result Body Mass Index 44.4 Tobacco/Smoking Status: Tobacco use Status Tobacco use date assessed 08/20/23 05/14/24 14:28 Patient Tobacco Use Status Never used Tobacco 05/14/24 14:28 e-Cigarette/Vaping Use Never Used 05/14/24 14:28 Thrive Assessment: Date of Thrive Assessment Date Thrive assessed 02/24/24 05/14/24 14:28 Const General: cooperative and no acute distress Nutritional Appearance: obese Orientation/consciousness: patient oriented x3 Limitations: wheelchair Resp Effort & Inspection: normal respiratory effort and able to speak in complete sentences Auscultation: clear to auscultation bilaterally Cardio Heart sounds: S1 normal heart sound present and S2 normal heart sound present General: Yes no CVA tenderness and Yes deferred Back/Spine/Pelvis Back: no CVA tenderness Neuro General: patient oriented x3 Coding Level of Care Code Est Pt Level 4 (05531) Diagnoses Pyelonephritis N12 Time Spent (min) 20 Assessment & Plan Assessment & Plan (1) Pyelonephritis: Code(s): N12 - Tubulo-interstitial nephritis, not specified as acute or chronic Category: Medical Plan: Ordered Urinalysis and C&S Advised to f/u with Book Publisher regarding recurrent Vaginal concerns. Orders: Orders UA CC w/rflx Micro + Cult Today N12 - Tubulo-interstitial nephritis, not specified as acute or chronic
[2024-05-14 14:24] VITALS: TEMP 36.4; BMI 44.4
== END 2024-05-14 15:14 | disposition home or self-care (01) ==
PROVIDERS: PCP Physician Assistant; Visit Provider Nurse Practitioner Family
DX: N12 Tubulo-interstitial nephritis, not specified as acute or chronic (principal)

== ENCOUNTER → 2024-05-14 14:18 | Outpatient (BNVA) | payer OTHER, SELFPAY | PROVIDERS: PCP Physician Assistant; Visit Provider Nurse Practitioner Family | DX: N12 Tubulo-interstitial nephritis, not specified as acute or chronic (principal) | CPT/HCPCS: 99212 ==

== ENCOUNTER 2024-05-18 | Outpatient (REF) | payer OTHER, SELFPAY ==
--- OUTSIDE RECORDS SUMMARY | 2024-05-19 15:26 | XMS_ITS | Encounter Summary ---
Author Organization [facility] Address [address] [place] [address] Care Team Providers Care Care Analyst Name Role Phone Deonte Carmona Primary Care Provider [phone] Reason for Visit * Reason Comments Weakness [...] retention Procedures . Ezequiel Reeves MD [address] [place] [address] Phone: tel: fax: [facility] [address] [place] [phone] Phone: tel: Referral ID Status Reason Start Date Expiration Date Visits Re quested Visits Authorized [id number] 1 1 Encounter Details Date Type Department Care Team (Latest Contact Info) Description 05/01/2024 4:39 PM EST - 05/05/2024 1:37 PM EST Hospital Encounter [facility] [address] [place] [phone] Lencho Hernandez MD [address] [place] [address] Ezequiel Reeves MD [address] [place] [address] Moses Sewell MD [address] [place] [phone] Acute cystitis without hematuria (Primary Dx); Acute urinary retention; SIRS due to infectious process with acute organ dysfunction (CMS/HCC) Discharge Disposition: Home-Health Care [facility] Social History Tobacco Use Types Packs/Day Years [...] 105/57, spO2 96% RA. Labs: WBC 18.9, grades 1 thru 6 visiting teacher 1.30, GFR 50, magbesium 1.8. Troponin 4. [...] Signed Date: 05/02/2024 09:34 ET Workstation ID: [id number] TranscribedBy: Self Edit Transcribed Date: 05/02/2024 09:30 [...] to follow up. Perla Leigh Ann Perla Ward Perla Andrade Perla Anne documented in this encounter Medications at Time of Discharge atorvastatin (LIPITOR) 40 mg tablet Take 1 tablet (40 mg total) by mouth 1 (one) time each day. desmopressin (DDAVP) 0.1 mg tablet Take 1 [...] by mouth 1 (one) time each day. pregabalin (LYRICA) 200 mg capsule Take 1 [...] mg total) by mouth at bedtime. 09/25/2018 cefdinir (OMNICEF) 300 mg capsule Take 1 capsule (300 mg total) by mouth 2 (two) times a day for 10 days. 20 each 05/05/2024 5 ondansetron ODT (ZOFRAN-ODT) 4 mg disintegrating tablet Dissolve 1 tablet (4 mg total) on top of the tongue every 8 (eight) hours if needed for nausea or vomiting for up to 7 days. 15 tablet 05/05/2024 5 polyethylene glycol (MIRALAX) 17 gram packet Take 17 g by mouth 1 (one) time each day for 10 days. 10 packet 05/06/2024 5 documented as of this encounter Ordered [...] for discharge. Dispo is home with continued [employer] support and VNA. ICC received call from ОЛЕГ (Nai) that pt has been accepted by [facility]. Ambulance booked for 430PM. Pt is [...] Sewell MD - 05/05/2024 8:52 AM EST [facility] Provider Response Note PATIENT: WALE DURANT : 1975 ADMIT DATE: 05/01/2024 10:47 PM DISCH DATE: RESPONDING PROVIDER #: [id number] PROVIDER RESPONSE TEXT: The patient has ADILSON. [...] a 48 y.o. female : 1975 MR#: [id number] SUBJECTIVE Subjective Patient seen and examined bedside [...] Joselyn Hastings - 05/04/2024 2:40 PM EST [facility] Physical Therapy Treatment PT Discharge Recommendations: Other (Comment) (home with [employer] which pt already recieves) Staff Recommendations for safe patient handling: min/modA for transfers/bed mobility, pt has good use of UE Precautions Medical Precautions: Fall Risk RUE Weight Bearing Status: Full LUE Weight Bearing Status: Full RLE Weight Bearing Status: Full LLE Weight Bearing Status: Full History of Present Illness: Patient is a 48 y.o. female admitted to [facility] on 05/01/2024 with: Patient Active Problem List [...] PT Discharge Recommendations Other (Comment) (home with [employer] which pt already recieves) PT - Evaluation [...] PT Discharge Recommendations: Other (Comment) (home with [employer] which pt already recieves) PT - Evaluation [...] Solis Signed Date: 05/03/2024 15:24 ET Workstation ID:[id number] Transcribed By: Self Edit Transcribed Date: 05/03/2024 [...] Signed Date: 05/02/2024 09:34 ET Workstation ID: [id number] Transcribed By: Self Edit Transcribed Date: 05/02/2024 09:30 ET Assessment/Plan: Wale Durant is a 48 y.o. female who has a past medical history of Anxiety, Cerebral palsy ([facility]/HCC), Chronic anemia, Depression, Diabetes insipidus (CMS/HCC), [...] pending, positive blood cultures Plan: home with [employer] (49 hours/week) * Moses Sewell MD - 05/03/2024 1:38 PM EST Images from the original note were not included. ENRICO PROGRESS NOTE Date: 05/03/2024 Author: Moses Sewell MD Patient ID: Wale Durant is a 48 y.o. female : 1975 MR#: [id number] SUBJECTIVE Subjective Patient seen and examined bedside [...] Joselyn Hastings - 05/03/2024 1:19 PM EST [facility] Physical Therapy Evaluation & Treatment PT Discharge Recommendations: [facility] facility placement Staff Recommendations for safe patient [...] is a 48 y.o. female admitted to [facility] on 05/01/2024. Patient Active Problem List Diagnosis Acute cystitis without hematuria Past Medical History: Diagnosis Date Anxiety Cerebral palsy ([facility]) Chronic anemia Depression Diabetes insipidus ([facility]/HCC) Diabetes mellitus ([facility]) GERD (gastroesophageal reflux disease) Hyperlipidemia Hypertension Hypothyroidism Insomnia Migraines Past Surgical History: Procedure Laterality Date APPENDECTOMY OTHER SURGICAL HISTORY Transsphenoidal hypophysectomy OTHER SURGICAL HISTORY Multiple surgeries at [facility] related to cerebral palsy Social History Home Living Environment: Home Living Type of Home: Apartment Lives With: Alone Home Adaptive Equipment: Walker - rolling, Wheelchair-power Home Layout: One level Home Access: Level entry Prior Function Level of [place]: Independent with mobility and functional transfers Ambulation Status: Household ambulator Receives Help From: 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 female admitted to [facility] on 05/01/2024 for SIRS due to infectious process with acute organ dysfunction (CMS/HCC) [A41.9, R65.20] Acute cystitis without hematuria [N30.00] Acute urinary retention [R33.8] . Pt presents with decreased BLE strength, balance deficits, decreased activity tolerance, and far below functional baseline. Pt performed bed mobility Moderate assist and Maximal assist, Bedrail, HOB elevated, and Therapist assist, Transfers with Moderate assist and Maximal assist, FWW and does not ambulate. Pt will benefit from skilled acute PT during hospital stay to improve the deficits listed above and optimize function. PT recommends [facility] facility placement when medically stable for safe [...] a 48 y.o. female : 1975 MR#: [id number] SUBJECTIVE Subjective Patient seen and examined bedside [...] Home Discharge Planning Living Arrangements Other (Comment) ([employer] services 49 hours per week.) Assistive Devices Wheelchair;Walker Medication Coverage Has Med Coverage Under Insurance Plan Yes Medication Affordability No concerns related to payment for meds Informed Choice Informed Choice Given? Yes Transportation Transportation at discharge Ambulance I met with patient with regards to d/c planning. Patient lives alone in an apartment. Patient uses a walker/wheelchair. Pharmacy is [facility]. Patient has [employer] services 49 hours per week. Patient declines need for VNA at this time. Patient states that she will need an ambulance upon d/c . Barrier to d/c: sepsis/acute cystitis, IV abx, IVF, urine cx, CT abd/pelvis, fall, PT eval Dispo: home with [employer] 49 hrs /week, will need ambulance upon [...] room air and BP was 136 systolic. -odd shoe examiner showed sinus tach with heart rate in [...] infectious concerns): [] Yes / [x] No Chairman And Ceo: [] Yes / [x] No If YES, Cardiac Rhythm: [] NSR, [] SB, [] ST, [] A-FIB, [] A-Flutter, [] Pacemaker, [] 1st Degree HB, [] 2nd Degree HB, [] 3rd Degree HB Reason for Chairman And Ceo: VS: Visit Vitals BP 105/57 (BP Location: [...] she has developed urinary incontinence and is havingurinary frequency without dysuria. Patient states she lives [...] Detected Narrative: Testing was performed using the [employer] Respiratory Pathogen PCR Assay. All results must [...] Procedure Abnormality Status --------- ------ CBC auto differential[[id number]] Abnormal Final result Please view results for these tests on the individual orders. URINALYSIS WITH REFLEX MICROSCOPIC Narrative: The following orders were created for panel order Urinalysis with reflex microscopic. Procedure Abnormality Status --------- ------ Urinalysis with reflex ...[[id number]] Please view results for these tests on [...] to infectious process with acute organ dysfunction ([facility]) Procedures Procedures Diagnosis No diagnosis found. Disposition [...] PHYSICAL Please contact author [YVES See] via [employer]. Patient: Wale Durant Admission Date/Time: 05/01/2024 4:39 [...] 105/57, spO2 96% RA. Labs: WBC 18.9, grades 1 thru 6 visiting teacher 1.30, GFR 50, magbesium 1.8. Troponin 4. [...] ??? OTHER SURGICAL HISTORY Multiple surgeries at [facility] related to cerebral palsy Social History reports [...] No focal deficit. CN II-XII grossly intact. Child And Family Services Worker strength equal 5/5 bilateral upper extremities. Upper [...] Obtain orthostatic vital signs Mildly elevated creatinine Dry Cleaning Supervisor 1.3 - Continue IV fluids - Avoid [...] admission, onward) Start Ordered 05/01/242 Adult diet [facility]; General; Regular Diet effective now Question Answer Comment Location [facility] Diet Type (req) General General Diet Regular 05/01/247 [x] Medication reconciliation; per pt. Health Care proxy with Phone number: Emmie SPENCER; [phone] Cosigned by Ezequiel Reeves MD at 05/02/2024 [...] hypophysectomy OTHER SURGICAL HISTORY Multiple surgeries at [facility] related to cerebral palsy Family History: No [...] 05/01/2024 342 QTc 05/01/2024 462 P Wave Barto 05/01/2024 54 R Barto 05/01/2024 25 T Barto 05/01/2024 12 ECG Interpretation 05/01/2024 Value:Sinus tachycardia [...] Detected SARS COV-2 05/01/2024 Not Detected Specific [place] Urine 05/01/2024 1.015 pH, Urine 05/01/2024 6.0 [...] Signed Date: 05/02/2024 09:34 ET Workstation ID: [id number] Transcribed By: Self Edit Transcribed Date: 05/02/2024 [...] EST XR CHEST 2 VIEWS STAT 05/01/2024 7:3 4 PM EST RESPIRATORY VIRUS PANEL MOLECULAR STUDY [...] - 100 mg/dL 05/05/2024 6:09 AM EST [facility] Blood Capillary blood specimen / Unknown 05/05/2024 6:09 AM EST 05/05/2024 6:10 AM EST Moses Sewell MD LAB POINT O F CARE TEST DOCKED DEVICE UNSOLICITED RESULTS Final Result [facility] [address] [place] [address], [place] [phone] * CT Abdomen Pelvis w Contrast (05/03/2024 [...] Signed Date: 05/03/2024 15:24 ET Workstation ID: [id number] Transcribed By: Self Edit Transcribed Date: 05/03/2024 [...] Signed Date: 05/03/2024 15:24 ET Workstation ID: [id number] Transcribed By: Self Edit Transcribed Date: 05/03/2024 15:13 ET us Moses Sewell MD IMG CT PROCEDURES F inal Result * Magnesium (05/03/2024 6:05 AM EST) Pathologist [facility] Magnesium 1.9 1.9 - 2.6 mg/dL LAB CHEMISTRY METHOD 05/03/2024 7:27 AM EST [facility] Blood Venous blood specimen / Unknown Venipuncture / Unknown 05/03/2024 6:05 AM EST 05/03/2024 6:48 AM EST us Moses Sewell MD LAB BLOOD ORDERABLE S Final Result [facility] [address] [place] [address], [place] [phone] * (ABNORMAL) Basic metabolic panel (05/03/2024 6:05 AM EST) Sodium 135 133 - 145 mmol/L LAB CHEMISTRY METHOD 05/03/2024 7:27 AM EST [facility] Potassium 3.7 3.5 - 5.5 [...] MD LAB BLOOD ORDERABLE S Final Result [facility] [address] [place] [address], [place] [phone] * (ABNORMAL) Complete blood count (05/03/2024 6:05 AM EST) [facility] WBC 7.2 4.8 - 10.8 K/mcL [...] LAB HEMETOLOGY METHOD 05/03/2024 7:13 AM EST [facility] Blood Venous blood specimen / Unknown Venipuncture / Unknown 05/03/2024 6:05 AM EST 05/03/2024 6:47 AM EST us Moses Sewell MD LAB BLOOD ORDERABLE S Final Result Performing Organization Address City/[facility]/ZIP Co de Phone Number [facility] [address] [place] [address], [place] [phone] * (ABNORMAL) Phosphorus (05/03/2024 6:05 AM EST) Phosphorus 2.2(L) 2.5 - 4.5 mg/dL LAB CHEMISTRY METHOD 05/03/2024 7:27 AM EST [facility] Blood Venous blood specimen / Unknown Venipuncture / Unknown 05/03/2024 6:05 AM EST 05/03/2024 6:48 AM EST us Moses Sewell MD LAB BLOOD ORDERABLE S Final Result Performing Organization Address [facility] Co de Phone Number [facility] [address] [place] [address], [place] [phone] * (ABNORMAL) POCT Glucose, blood (05/02/2024 12:35 PM EST) Glucose POCT 154(H) 70 - 100 mg/dL 05/02/2024 12:35 PM EST [facility] Blood Capillary blood specimen / Unknown 05/02/2024 12:35 PM EST 05/02/2024 12:36 PM EST us Moses Sewell MD LAB POINT O F CARE TEST DOCKED DEVICE UNSOLICITED RESULTS Final Result [facility] [address] [place] [address], * (ABNORMAL) CBC auto differential (05/02/2024 6:24 AM EST) WBC 16.5(H) 4.8 - 10.8 K/mcL LAB HEMETOLOGY METHOD 05/02/2024 7:33 AM EST [facility] RBC 3.20(L) 3.80 - 4.80 [...] LAB HEMETOLOGY METHOD 05/02/2024 7:33 AM EST [facility] Blood Venous blood specimen / Unknown Venipuncture / Unknown 05/02/2024 6:24 AM EST 05/02/2024 6:35 AM EST us Ezequiel Reeves MD LAB BLOOD ORDERABLES Final Result Performing Organization Address [facility]/ZIP Co de Phone Number [facility] [address] [place] [address], [place] [phone] * Magnesium (05/02/2024 6:24 AM EST) Pathologist [facility] Magnesium 2.0 1.9 - 2.6 mg/dL LAB CHEMISTRY METHOD 05/02/2024 7:21 AM EST [facility] Blood Venous blood specimen / Unknown Venipuncture / Unknown 05/02/2024 6:24 AM EST 05/02/2024 6:35 AM EST Rakel MARINELLI LAB BLOOD ORDERABLES Final R esult Performing Organization Address [facility]/ZIP Co de Phone Number [facility] [address] [place] [address], [place] [phone] * (ABNORMAL) Basic metabolic panel (05/02/2024 6:24 AM EST) Pathologist [facility] Sodium 136 133 - 145 mmol/L LAB CHEMISTRY METHOD 05/02/2024 7:21 AM EST [facility] Potassium 4.4 3.5 - 5.5 mmol/L LAB CHEMISTRY METHOD 05/02/2024 7:21 AM EST [facility] Chloride 103 96 - 110 mmol/L LAB CHEMISTRY METHOD 05/02/2024 7:21 AM EST [facility] CO2 26 21 - 32 [...] Reeves MD LAB BLOOD ORDERABLES Final Result [facility] [address] [place] [address], * (ABNORMAL) Blood Culture, Peripheral Draw #1 [...] Gram negative bacilli(AA) 05/04/2024 8:49 AM EST [facility] Comment:This is an appended report. These results have been appended to a previously preliminary verified report. Blood Venous blood specimen / Unknown Venipuncture / Unknown 05/01/2024 10:35 PM EST 05/01/2024 10:51 PM EST Narrative [facility] - 05/04/2024 8:49 AM EST FOR SUSCEPTIBILITIES, REFER TO PREVIOUS CULTURE FROM 05/01/24 at 2231. us Lencho Hernandez MD LAB MICROBIOLOGY - GENERAL ORD ERABLES Final Result Performing Organization Address [facility]/ZIP Co de Phone Number [facility] [address] [place] [address], [place] [phone] * (ABNORMAL) Blood culture pathogens molecular study (05/01/2024 10:31 PM EST) Klebsiella pneumoniae group Detected (A) Not Detected LAB MICROBIOLOGY METHOD 05/02/2024 1:14 PM EST [facility] Blood Venous blood specimen / Unknown Venipuncture / Unknown 05/01/2024 10:31 PM EST 05/01/2024 10:51 PM EST Lencho Hernandez MD LAB MICROBIOLOGY - GENERAL ORD ERABLES Final Result Performing Organization Address [facility]/ZIP Co de Phone Number [facility] [address] [place] [address], [place] [phone] * (ABNORMAL) Blood Culture, Peripheral Draw #2 (05/01/2024 10:31 PM EST) Culture, Blood Klebsiella pneumoniae ssp pneumoniae(AA) NATALIA 05/04/2024 8:47 AM EST [facility] Comment: The organism value for this result has been updated. These results have been appended to the previously preliminary verified report. This is an edited result. Previous organism was Gram negative bacilli on 05/03/2024 at 1013 EST. Gram Stain Result Anaerobic bottle Gram negative bacilli(AA) 05/04/2024 8:47 AM EST [facility] Comment:This is an appended report. These results have been appended to a previously preliminary verified report. Gram Stain Result Aerobic bottle Gram negative bacilli(AA) 05/04/2024 8:47 AM EST [facility] Comment:This is an appended report. [...] MICROBIOLOGY - GENERAL ORD ERABLES Final Result [facility] [address] [place] [address], [place] [phone] * (ABNORMAL) Urine culture (05/01/2024 9:04 PM EST) [facility] Signature Culture, Urine >100,000 CFU/mL Klebsiella pneumoniae ssp pneumoniae(A) NATALIA 05/04/2024 7:37 AM EST [facility] Comment: This is an edited [...] MICROBIOLOGY - GENERAL ORD ERABLES Final Result [facility] [address] [place] [address], [place] [phone] * (ABNORMAL) Urinalysis with reflex microscopic (05/01/2024 8:52 PM EST) Specific [place] Urine 1.015 1.003 - 1.030 LAB URINALYSIS [...] - AUTOMATED METHOD 05/01/2024 9:35 PM EST [facility] Squamous Epithelial, Urine 8 0 - 60 /LPF LAB URINALYSIS - AUTOMATED METHOD 05/01/2024 9:35 PM EST [facility] Bacteria, Urine Many(A) Negative /HPF LAB URINALYSIS - AUTOMATED METHOD 05/01/2024 9:35 PM EST [facility] Hyaline Casts, Urine 0.0 0 - 3 /LPF LAB URINALYSIS - AUTOMATED METHOD 05/01/2024 9:35 PM [facility] Urine Urine specimen obtained by clean catch procedure / Unknown Non-blood Collection / Unknown 05/01/2024 8:52 PM EST 05/01/2024 9:14 PM EST us Lencho Hernandez MD LAB URINE ORDERABLES Final Res ult [facility] [address] [place] [address], [place] [phone] * XR Chest 2 Views (05/01/2024 7:34 PM EST) Anatomical Region Laterality Modality Body Radiographic Aniyah ging 05/02/2024 9:30 AM EST Impressions 05/02/2024 9:34 AM EST Hypoventilatory exam. ??No acute findings. -------- FINAL REPORT -------- Dictated By: Stefan Ambriz Dictated Date: 05/02/2024 09:30 ET Assigned Physician: Stefan Ambriz Reviewed and Electronically Signed By: Stefan Ambriz Signed Date: 05/02/2024 09:34 ET Workstation ID: [id number] Transcribed By: Self Edit Transcribed Date: 05/02/2024 [...] Signed Date: 05/02/2024 09:34 ET Workstation ID: [id number] Transcribed By: Self Edit Transcribed Date: 05/02/2024 [...] LAB MICROBIOLOGY METHOD 05/01/2024 6:55 PM EST [facility] Parainfluenza Virus 2 Not Detected [...] 5:44 PM EST 05/01/2024 5:57 PM EST [facility] - 05/01/2024 6:55 PM EST Testing was performed using the [employer] Respiratory Pathogen PCR Assay. All results must [...] ORD ERABLES Final Result Performing Organization Address [facility] Co de Phone Number [facility] [address] [place] [address], * Troponin I high sensitivity (05/01/2024 5:42 PM EST) [facility] High Sensitivity Troponin I 4 <=54 ng/L LAB CHEMISTRY METHOD 05/01/2024 6:27 PM EST [facility] Blood Venous blood specimen / Unknown Venipuncture / Unknown 05/01/2024 5:42 PM EST 05/01/2024 5:57 PM EST Narrative [facility] - 05/01/2024 6:27 PM EST High levels of biotin in samples may falsely decrease hsTroponin values. ??Use caution when interpreting hsTroponin results in patients taking biotin who exhibit renal impairment (eGFR <60) or in patients taking more than 20 mg/day of biotin. us Lencho Hernandez MD LAB BLOOD ORDERABLES Final Res ult Performing Organization Address [facility] Co de Phone Number [facility] [address] [place] [address], * Thyroid stimulating hormone with reflex to free t4 and free t3 (TSH Reflex) (05/01/2024 5:42 PM EST) [facility] TSH 0.84 0.40 - 4.00 mcIU/mL LAB CHEMISTRY METHOD 05/01/2024 6:35 PM EST [facility] Blood Venous blood specimen / Unknown Venipuncture / Unknown 05/01/2024 5:42 PM EST 05/01/2024 5:57 PM EST us Lencho Hernandez MD LAB BLOOD ORDERABLES Final Res ult [facility] [address] [place] [address], [place] [phone] * (ABNORMAL) Hepatic function panel (05/01/2024 5:42 PM EST) Pathologist [facility] Total Protein 6.4 6.0 - 8.0 g/dL LAB CHEMISTRY METHOD 05/01/2024 6:27 PM EST [facility] Albumin 3.4 3.2 - 5.0 [...] MD LAB BLOOD ORDERABLES Final Res ult [facility] [address] [place] [address], [place] [phone] * (ABNORMAL) Magnesium (05/01/2024 5:42 PM EST) Magnesium 1.8(L) 1.9 - 2.6 mg/dL LAB CHEMISTRY METHOD 05/01/2024 6:27 PM [facility] Blood Venous blood specimen / Unknown Venipuncture / Unknown 05/01/2024 5:42 PM EST 05/01/2024 5:57 PM EST Lencho Hernandez MD LAB BLOOD ORDERABLES Final Res ult Performing Organization Address City/[facility]/ZIP Co de Phone Number [facility] [address] [place] [address], [place] [phone] * (ABNORMAL) Basic metabolic panel (05/01/2024 5:42 [...] LAB CHEMISTRY METHOD 05/01/2024 6:27 PM EST [facility] Creatinine 1.30(H) 0.50 - 1.10 mg/dL LAB CHEMISTRY METHOD 05/01/2024 6:27 PM EST [facility] eGFR 50(L) >=60 mL/min/1. 73m2 LAB CHEMISTRY METHOD 05/01/2024 6:27 PM EST [facility] Comment:Calculation based on the??Chronic Kidney Disease Epidemiology Collaboration (CKD-EPI) equation refit??without adjustment for race. BUN/Creatinine Ratio 12.3 LAB CHEMISTRY METHOD 05/01/2024 6:27 PM EST [facility] Calcium 9.1 8.5 - 10.5 mg/dL LAB CHEMISTRY METHOD 05/01/2024 6:27 PM EST [facility] Blood Venous blood specimen / Unknown Venipuncture / Unknown 05/01/2024 5:42 PM EST 05/01/2024 5:57 PM EST us Lencho Hernandez MD LAB BLOOD ORDERABLES Final Res ult [facility] [address] [place] [address], * ECG 12 lead (05/01/2024 5:33 PM EST) Ventricular Rate ECG 110 BPM GEMUSE Atrial Rate 110 BPM GEMUSE P-R Interval 128 ms GEMUSE QRS Duration 74 ms GEMUSE Q-T Interval 342 ms GEMUSE QTc 462 ms GEMUSE P Wave Barto 54 degrees GEMUSE R Barto 25 degrees GEMUSE T Barto 12 degrees GEMUSE ECG Interpretation Sinus tachycardia [...] - 100 mg/dL 05/01/2024 5:18 PM EST [facility] Blood Capillary blood specimen / Unknown 05/01/2024 5:17 PM EST 05/01/2024 5:19 PM EST Lencho Hernandez MD LAB POINT OF CARE TE ST DOCKED DEVICE UNSOLICITED RESULTS Final Result Performing Organization Address City/[facility]/ZIP Co de Phone Number [facility] [address] [place] [address], [place] [phone] * (ABNORMAL) CBC auto differential (05/01/2024 5:09 [...] LAB HEMETOLOGY METHOD 05/01/2024 5:38 PM EST [facility] Monocytes Absolute 1.59(H) 0.20 - 1.00 K/mcL LAB HEMETOLOGY METHOD 05/01/2024 5:38 PM EST [facility] Eosinophils Absolute 0.16 0.00 - 0.50 K/mcL LAB HEMETOLOGY METHOD 05/01/2024 5:38 PM EST [facility] Basophils Absolute 0.08 0.00 - 0.20 K/mcL LAB HEMETOLOGY METHOD 05/01/2024 5:38 PM EST [facility] Immature Granulocytes Absolute 0.15(H) 0.00 - 0.03 K/mcL LAB HEMETOLOGY METHOD 05/01/2024 5:38 PM EST [facility] Blood Venous blood specimen / Unknown Venipuncture / Unknown 05/01/2024 5:09 PM EST 05/01/2024 5:18 PM EST Lencho Hernandez MD LAB BLOOD ORDERABLES Final Res ult [facility] [address] [place] [address], * ECG-Annotated (05/01/2024) Provider Onbase ECG ORDERABLES [...] Given 05/03/2024 10:06 AM EST 40 mg krwchjrpej-gtkemhwxcygkg-tzyulnkf (FIORICET, ESGIC) 50-325-40 mg per tablet 1 tablet 1 tablet, oral, Once, On 05/02/24 at 0400, For 1 dose Given 05/02/2024 3:50 AM EST 1 tablet qhqfnleebv-wywqzkezypyuz-elvhqsep (FIORICET, ESGIC) 50-325-40 mg per tablet 1 [...] mL/hr, Administer over 3 Minutes, Once, On [facility] 05/01/24 at 2220, For 1 dose, Do [...] Every 12 hours scheduled, First dose on [facility] 05/01/24 at 2248, Indication: VTE/PE Prophylaxis Given [...] at 2239, 2nd Line Option: -ONLY give [place] if patient is unable to take orally [...] 50 mg, oral, Daily, First dose on [facility] 05/02/24 at 0900 Given 05/05/2024 8:16 AM [...] mL/hr, Administer over 30 Minutes, Once, On [facility] 05/01/24 at 1727, For 1 dose New [...] intravenous, As needed, line care, Starting on [facility] 05/01/24 at 2239 Given 05/03/2024 2:40 PM EST 10 mL tiZANidine (ZANAFLEX) tablet 4 mg 4 mg, oral, 2 times daily PRN, muscle spasms, Starting on [facility] 05/02/24 at 0219 Given 05/02/2024 3:46 AM [...] Paige Nuñez) 0817 (Given - Provider: Susana Reyze RN) cefepime (MAXIPIME) 2 g in sterile [...] Adri Sood RN) 1009 (Given - Provider: Piage Nuñez)214 (Given - Provider: Sirena Mccarthy RN) [...] at 2239, 2nd Line Option: -ONLY give [place] if patient is unable to take orally [...] at 2239, 2nd Line Option: -ONLY give [place] if patient is unable to take orally [...] acetaminophen (TYLENOL) tablet 650 mg 1 05/2024 tsylkbcrwc-awhkaleeeaiii-pmp feine (FIORICET, ESGIC) 50-325-40 mg per tablet [...] documented as of this encounter Care Teams Care Analyst Relationship Specialty Start Date End Date Deonte Carmona PA PCP - General Physician Roof Slater 05/01/24 documented as of this encounter
--- OUTSIDE RECORDS SUMMARY | 2024-05-19 15:26 | XMS_ITS | Data Portability ---
Author Organization [facility], [place] - [facility] Address [address] [place] [id number] Care Team Providers Care Package Yarns Drying Machine Operator Name Role Phone HIM CCA Referring Provider [phone] DARRION BARNES Primary Care Provider Assessment Encounter Date Assessment Date Assessment LastModified by Organization Details LastModified Time 05/10/2024 05/10/2024 I have reviewed and agree with the assessment and plan as documented by the investigative writer. I provided real-time medical direction for this encounter and was immediately available to provide additional phone-based assistance as needed. HPI: 48F presenting with fatigue. Recent hospitalization for sepsis from UTI, discharged home ~ 5 days ago. Today patient descrbies feeling fatigued, weakness. No fever, no SOB, no cough or runny nose. No urinary symptoms. Normal PO intake. Normal functioning. VSS. Exam otherwise unremarkable per the investigative writer. BMP reveals K 3.5. Otherwise unremarkable. Impression: Pt with mild fatigue, generally well appearing. Potassium slightly low, will replace. Pt does have follow up scheduled with PCP. Plan: KCL 40mg PO x 1 We discussed the diagnostic uncertainty of home visits and the risk associated with this. In this case, the patient and I felt this to be an acceptable and reasonable amount of risk given the benefit of avoiding an ED visit. We discussed the need to seek care urgently/emergentl y in the setting of any new or worsening serious symptoms, particularly weakness, dizziness, fever, chills, CP, SOB, worsening diarrhea, nausea, vomiting or any other concerns. paysola Not available 05/10/2024 16:54:36 Plan of Treatment Reminders Order Date Submit Date Provider Last Modified By Organization Details Last Modified Time Details Appointments None recorded. Lab BMP, serum or plasma 2024 025 [email or web address], [address] [place] [address], [phone], 5 16:54:48 Referral None recorded. Procedures None recorded. Surgeries None recorded. Imaging None recorded. Medication Orders potassium chloride ER 20 mEq tablet,ext ended release 2024 025 [id number], [address] [place], [address], 5 16:53:27 ketorolac 30 mg/mL injection solution 2023 024 [email or web address] Not available 4 16:03:36 ketorolac 30 mg/mL injection solution 2023 024 [email or web address] Not available 4 16:49:30 Patient TargetsNo targets recorded. Patient InstructionsNo instructions recorded. Reason for Referral None Reported. Results Created Date Observation Date Name Description Value Unit Range Abnormal Flag Note LastModifiedBy Organization Detail LastModifiedTime Result Notes None recorded. Medical Equipment None Reported. Allergies Allergen ID Allergen Name Allergen Category Reaction Reaction Severity Criticality Documentation Date Start Date Code Code System Note Provider Name and Address Organization Details Recorded Time 6339 Zomig medicatio n Not available Not available Not available 12/26/2023 13291 4 RxNorm Not Available [facility] - production 5 13:48:13 6340 Ambien medicatio n Not available Not available Not available 12/26/2023 90143 5 RxNorm Not Available [facility] - production 5 13:48:13 6341 trazodone medicatio n Not available Not available Not available 12/26/2023 93277 RxNorm Not Available [facility] - production 4 03:42:42 Medications Name Sig Start Date Stop Date Status Note LastModified by Organization Details LastModified Time atorvastatin 40 mg tablet TAKE 1 TABLET BY MOUTH DAILY active Not Available Not Available Not Available prednisone 10 mg tablet TAKE 1 TABLET BY MOUTH EVERY DAY FOR 5 DAYS active Not Available Not Available No t Available cefpodoxime 200 mg tablet TAKE 1 TABLET BY MOUTH TWICE A DAY active Not Available Not Available No t Available tizanidine 4 mg tablet TAKE 1 TABLET BY MOUTH TWICE A DAY FOR MUSCLE SPASM active Not Available Not Available No t Available famotidine 40 mg tablet TAKE 1 TABLET BY MOUTH EVERY DAY AT BEDTIME active Not Available Not Available No t Available doxepin 75 mg capsule TAKE 1 CAPSULE BY MOUTH TWICE A DAY active Not Available Not Available No t Available quetiapine 200 mg tablet TAKE 1 TABLET BY MOUTH DAILY active Not Available Not Available Not Available permethrin 5 % topical cream 1 APPLICATION TOPICALLY DAILY FOR 14 DAYS APPLY DAILY FOR 7 DAYS, THEN 2 TIMES A WEEK UNTIL CURED active Not Available Not Available No t Available venlafaxine ER 150 mg capsule,exte nded release 24 hr TAKE 1 CAPSULE BY MOUTH EVERY DAY active Not Available Not Available No t Available ciprofloxaci n 500 mg tablet TAKE 1 TABLET BY MOUTH TWICE A DAY active Not Available Not Available No t Available sulfamethoxa zole 800 mg-trimethop rim 160 mg tablet TAKE 1 TABLET BY MOUTH TWICE A DAY FOR 5 DAYS active Not Available Not Available No t Available omeprazole 40 mg capsule,jaun yed release TAKE 1 CAPSULE BY MOUTH EVERY DAY active Not Available Not Available No t Available aspirin 81 mg tablet,delay ed release TAKE 1 TABLET BY MOUTH EVERY DAY active Not Available Not Available No t Available tramadol 50 mg tablet TAKE 1 TABLET BY MOUTH TWICE A DAY FOR PAIN active Not Available Not Available No t Available butalbital-a cetaminophen -caffeine 50 mg-325 mg-40 mg tablet TAKE 1 TABLET BY MOUTH EVERY 6 HOURS NEEDED FOR PAIN *NC* active Not Available Not Available No t Available acetaminophe n ER 650 mg tablet,exten ded release TAKE 2 TABLETS ORALLY EVERY 12 HOURS NEEDED FOR FEVER OR PAIN FOR 90 DAYS active Not Available Not Available No t Available levothyroxin e 75 mcg tablet TAKE 1 TABLET BY MOUTH 6 TIMES A WEEK active Not Available Not Available No t Available levothyroxin e 88 mcg tablet TAKE 1 TABLET BY MOUTH EVERY DAY FOR 90 DAYS active Not Available Not Available No t Available magnesium oxide 400 mg (241.3 mg magnesium) tablet TAKE 1 TABLET BY MOUTH TWICE A DAY active Not Available Not Available No t Available meclizine 25 mg tablet TAKE 1 TABLET BY MOUTH DAILY NEEDED FOR MOTION SICKNESS FOR 14 DAYS active Not Available Not Available Not Available bisacodyl 10 mg rectal suppository UNWRAP AND INSERT 1 SUPPOSITORY RECTALLY DAILY NEEDED FOR CONSTIPATIO N active Not Available Not Available No t Available ferrous sulfate 325 mg (65 mg iron) tablet TAKE 1 TABLET BY MOUTH EVERY DAY active Not Available Not Available No t Available metoprolol tartrate 50 mg tablet TAKE 1 TABLET BY MOUTH EVERY 12 HOURS active Not Available Not Available No t Available docusate sodium 100 mg capsule TAKE 1 CAPSULE BY MOUTH TWICE A DAY active Not Available Not Available No t Available zaleplon 5 mg capsule PLEASE SEE ATTACHED FOR DETAILED DIRECTIONS active Not Available Not Available N ot Available ibuprofen 600 mg tablet TAKE 1 TABLET BY MOUTH 3 TIMES A DAY WITH FOOD active Not Available Not Available No t Available ferrous sulfate 325 mg (65 mg iron) tablet,delay ed release TAKE 1 TABLET BY MOUTH EVERY DAY active Not Available Not Available No t Available doxycycline hyclate 20 mg tablet TAKE 1 TABLET EVERY 12 HOURS UNTIL FINISHED active Not Available Not Available No t Available hydroxyzine HCl 10 mg tablet TAKE 1 TABLET BY MOUTH EVERY 8 HOURS FOR 15 DAYS active Not Available Not Available No t Available cefdinir 300 mg capsule TAKE 1 CAPSULE BY MOUTH TWICE A DAY UNTIL 01/27,THEN 1 CAPSULE DAILY UNTIL STENT REMOVED DIRECTED active Not Available Not Available No t Available desmopressin 0.1 mg tablet TAKE 1 TABLET BY MOUTH TWICE A DAY active Not Available Not Available No t Available Laxative (bisacodyl) 5 mg tablet,delay ed release TAKE 1 TABLET BY MOUTH DAILY NEEDED FOR CONSTIPATIO N active Not Available Not Available No t Available Vitamin D3 25 mcg (1,000 unit) capsule TAKE 1 CAPSULE BY MOUTH EVERY DAY FOR 90 DAYS active Not Available Not Available No t Available Fiber Therapy (methylcellu lose) 500 mg tablet TAKE 1 TABLET BY MOUTH 3 TIMES A DAY active Not Available Not Available Not Available pregabalin 200 mg capsule TAKE 1 CAPSULE BY MOUTH TWICE A DAY active Not Available Not Available No t Available chlorhexidin e gluconate 0.12 % mouthwash SWISH BY MOUTH WITH 15 ML (UNDILUTED) FOR 30 SECONDS, THEN SPIT (AFTER BREAKFAST AND BEFORE BEDTIME) active Not Available Not Available No t Available quetiapine 50 mg tablet TAKE 1 TABLET BY MOUTH EVERY DAY active Not Available Not Available No t Available Purelax 17 gram oral powder packet 17 GM BY MOUTH DAILY active Not Available Not Available Not Available Vitamin D3 50 mcg (2,000 unit) capsule TAKE 1 CAPSULE BY MOUTH EVERY DAY active Not Available Not Available No t Available Myrbetriq 25 mg tablet,exten ded release TAKE 1 TABLET BY MOUTH DAILY active Not Available Not Available Not Available potassium chloride ER 20 mEq tablet,exten ded release Take 1 tablet every day by oral route. 2024 active Not Available Not Available Not Avai lable Vitals Date Recorded Body weight Body height Respiratory rate Body temperature Heart rate Oxygen saturation Oxygen saturation in Arterial blood by Pulse oximetry Systolic blood pressure Diastolic blood pressure Provider Name and Address Organization Details Last Updated DateTime 4 97500.2 8 g 142.24 cm 16 /min 98.1 [degF] 96 /min 96 % 96 % 102 mm[Hg] 69 mm[Hg] Not Available [facility] 4 16:41:38 Date Recorded Oxygen saturation Oxygen saturation in Arterial blood by Pulse oximetry Respiratory rate Body temperature Body weight Heart rate Body height Systolic blood pressure Diastolic blood pressure Provider Name and Address Organization Details Last Updated DateTime 4 95 % 95 % 16 /min 97.2 [degF] 48983.2 8 g 91 /min 142.24 cm 135 mm[Hg] 85 mm[Hg] Not Available [facility] 4 15:57:01 Date Recorded Oxygen saturation Oxygen saturation in Arterial blood by Pulse oximetry Heart rate Body temperature Respiratory rate Body height Body weight Systolic blood pressure Diastolic blood pressure Provider Name and Address Organization Details Last Updated DateTime 4 96 % 96 % 96 /min 97 [degF] 16 /min 142.24 cm 98080.2 8 g 126 mm[Hg] 76 mm[Hg] Not Available [facility] 4 14:10:42 Date Recorded Oxygen saturation Oxygen saturation in Arterial blood by Pulse oximetry Body temperature Respiratory rate Heart rate Systolic blood pressure Diastolic blood pressure Provider Name and Address Organization Details Last Updated DateTime 5 97 % 97 % 98.2 [degF] 17 /min 86 /min 128 mm[Hg] 82 mm[Hg] Not Available [facility] 5 16:32:24 Social History None recorded. Functional Status None recorded. Mental Status None recorded. Family History Nothing Reported. Medical History No medical history recorded. Gynecological HistoryNo gynecological history recorded. Obstetrics History GPAL:G 0 P 0 0 0 0 Past Encounters Encounter ID Performer Location Encounter Start Date Encounter Closed Date Diagnosis/Indication Diagnosis SNOMED-CT Code Diagnosis ICD10 Code Diagnosis Note [id number] Spencer Lacy MD [facility] - [facility] [address] [place] [phone] 05/08/2023 16:37:50 05/08/2023 21:46:30 Right side sciatica 1220958469 94167 M54.31 Hx of kidney stones but no renal impairment . Amenable to 1x dose of Toradol today. Discussed red flag signs for which to seek higher level of care. [id number] Bao Grant MD Main - [facility] [address] [place] [phone] 06/10/2023 15:56:55 06/11/2023 11:17:03 Arthritis 4720369 M19.90 As noted, we were called to see this patient regarding concerns of bilateral knee arthritis. Evaluation in the field was performed by my investigative writer colleague, as noted above, I provided real-time direction and supervisio n for this visit. The evaluation revealed bilateral tender knees without overt warmth or redness. Some pain with ROM. Pt thinks they may be somewhat swollen. ROM somewhat restricted by pain but not severely. Pt ambulates but only a few dozen feet per day with a walker due to cerebral palsyNo clear provoking/ triggering factor, including new medication , activity, trauma.No fevers, chillsTaki ng tylenol, hasn't taken anything else Impression :Subacute oligoarthr itis of uncertain etiology. Ddx including OA, RA, gout, pseudogout , post-infec tious, others. Not very angry looking so I think gout unlikely. No other joints affected, making RA less likely. Not infection given lack of systemic sx and bilateral nature. Plan:Sympt omatic treatment with ketorolacL ow risk for CKDCounsel ed on risk of side effects including ADILSON, bleeding, GI injuryAdvi sed to add ibuprofen 600 or similar PRN as tolerated Primary care, please follow up with her and consider workup Dispositio n:We discussed the diagnostic uncertaint y of home visits and the risk associated with this. In this case, the patient and I felt this to be an acceptable and reasonable amount of risk given the benefit of avoiding an ED visit. We discussed the need to seek care urgently/e mergently in the setting of any new or worsening serious symptoms, particular ly fever. [id number] FERNANDA COHN MD [facility] - [facility] [address] [place] [phone] 12/26/2023 14:10:39 12/29/2023 08:17:01 Injury of elbow 184762498 S59.901A Evaluation in the field was performed by my investigative writer colleague, as noted above, I provided real-time direction and supervisio n for this visit. The evaluation revealed a 48-year-ol d female who fell off the bed on Friday, 12/23, landing on her right arm. She complains of right forearm and elbow pain and swelling, particular ly with movement. The patient denies head injury, loss of consciousn ess , dizziness, chest pain, or shortness of breath. Vital signs are stable.Per discussion with the investigative writer, there is swelling of the right elbow and upper forearm, with pain upon movement of the right elbow, raising concern for an elbow fracture. Allergies reviewed Impression :Fall. Concerns for right elbow fracture Plan:Had a long discussion with the patient regarding the need for an X-ray to rule out an elbow fracture. She was encouraged to go to urgent care for the X-ray and possible treatment if a fracture is confirmed. Unfortunat gloria, she had no available transporta tion to go to urgent care, so the decision was made to refer her to [facility] ED via ambulance. -No ketorolac was administer ed, as it can delay healing in the case of a fracture.- An expect called at [facility] ED Primary care, consider__ _ Dispositio n: [facility] [id number] Lakshmi Jarvis MD Main - [facility] [address] [place] [phone] 05/10/2024 16:20:31 05/10/2024 21:46:36 Fatigue 35883366 R53.83 Hypokalemia 38294053 E87 .6 Health Concerns Section Related Observation LastModified by Organization Detai ls LastModified Time None Recorded Concern Status LastModified by Organization Details LastModified Time None Recorded Advance Directives Directive None Recorded Payers Encounter Date Sequence Insurance Name Policy Number Policy Oconnor Covered Member ID Oconnor Member ID Guarantor Name 05/08/2023 1 [facility] - DOS ON OR AFTER 2022 - DUAL ELIGIBLE - USP OPTIONS AND ONE CARE (MEDICARE REPLACEMENT/ADV ANTAGE - HMO) Addis Durant [id number] Addis Durant 06/10/2023 1 [facility] - DOS ON OR AFTER 2022 - DUAL ELIGIBLE - USP OPTIONS AND ONE CARE (MEDICARE REPLACEMENT/ADV ANTAGE - HMO) Addis Durant [id number] Addis Durant 12/26/2023 1 [facility] - DOS ON OR AFTER 2022 - DUAL ELIGIBLE - USP OPTIONS AND ONE CARE (MEDICARE REPLACEMENT/ADV ANTAGE - HMO) Addis Durant [id number] Addis Durant 05/10/2024 1 [facility] - DOS ON OR AFTER 2022 - DUAL ELIGIBLE - USP OPTIONS AND ONE CARE (MEDICARE REPLACEMENT/ADV ANTAGE - HMO) Addis Durant [id number] Addis Durant Notes Date Note Type Note Provider Name and Address Organization Details Recorded Time 05/08/2023 text/html [facility] Nurse Triage Notes (Harmony Sommers): Reason For Request: Pt is having pain in her hip, back>fears it could be sciatic nerve>going on 1 to 2 weeks and worsening which is affecting her daily movement (triggering the pain) Chief Complaints: Pain PMH: Diabetes, Other Allergies: Trazodone Comments: PMH: cerebral palsy Member reports pain to left back and hip, more pain than usual. Radiating down right leg. Difficulty ambulating and performing ADLs. Progressively getting worse over the last week. No recent falls. Took Tylenol arthritis for pain. Spencer Lacy MD [address] [place] [address],[address], [place], [phone], [facility] 05/08/2023 17:42:14 06/10/2023 text/html [facility] Nurse Triage Notes (Hallie Vela): Reason For Request: Pt's activities concierge reporting mbr is handicap/unable to walk>pain on both knees, almost falls to the ground when attempting to stand and unable to sleep with the pain>going on 2 weeks. Chief Complaints: Pain PMH: Diabetes Allergies: Trazodone Comments: Member is a pashto speaking member , that is a 47 yr old female that is handicap and unable to walk at baseline. MONORAIL OPERATOR calling in for new bilateral knee pain . MONORAIL OPERATOR is trying to connect with PCP and is looking for pain management . MONORAIL OPERATOR / member are aware we do not do imaging ...................... ...................... ...................... ...................... ...................... ...................... ......... Manager Field Service Note From Jefferson Luna: Pt with CP reporting 2+ weeks of bilateral knee pain and edema (right worse than left). Pt denies any precipitating event or injury, new foods, medication changes, f/n/v/d. Pt is alert, NAD. VSS. Afebrile. Non focal neuro exam. Lungs CTA. Benign ABD exam. Right knee is has circumferential pain on palpation and left has anterior pain only. No pitting edema, erythema or increased warmth noted. Pt treated with ketorolac 30 mg IM, left deltoid. Pt encouraged to go to walk in clinic or ED if sx worsen or new sx present. ...................... ...................... ...................... ...................... ...................... ...................... ......... Disposition: Fulfilled Bao Grant MD [address] [facility],[address], [place], [phone], WALTER VELASQUEZ 06/10/2023 17:06:45 12/26/2023 text/html [facility] Nurse Triage Notes (Hallie Vela): Reason For Request: Pt's MONORAIL OPERATOR Emmie reporting a fall from either yesterday or the day before during the morning hours, activities concierge noting right arm pain Chief Complaints: Falls PMH: Diabetes Allergies: Trazodone Comments: The investigative writer verified the member's name//address, and phone number. Member is a 48 yr old female , pashto speaking female, a/o3 PMH >DM Allergies >trazadone MONORAIL OPERATOR is called for a pt that fell on Friday; it was an unwitnessed fall. She did not hit her head. She did not RANJIT or dizziness. She fell getting out of bed, and her right arm was in pain. She did not have any xrays completed. She has ROM , no bruising or apparent injury. She is aware that we do not offer exrays. She is not on blood thinners , denies any N/v. REfusing ER at this time Education provided on the response time and the member was advised to monitor reported s/s and seek emergency treatment if needed ...................... ...................... ...................... ...................... ...................... ...................... ......... Manager Field Service Note From Bao Nelson: [facility] makes pt contact, 48 yo F CC of a fall two days ago.[facility] obtains vital signs. PT explains she was in bed trying to get out to her walker and because of the material of her pants, she slid out of bed. Injuring her R elbow. PT describes chronic tendinitis in the affected arm and the fall exacerbated the already sensitive area. PT reports 7/10 pain, pain on palpation, swelling noted around perimeter of elbow, in particular the posterior forearm muscles/tendons. PT has pain upon movement as well, and any pressure associated with trying to get up using a walker. PT allergies confirmed, trazadone, ambien, zomig. [facility] contacts [facility] advises we can treat acute pain with toradol although she is concerned that it could be fractured. PT is NOT given toradol due to be transported to the hospital via ambulance. [facility] stressed to PT that she needs imaging as soon as possible, to be placed in a sling, and have a orthopedic determine the best treatment plan. PT is advised to either go to the ED for imaging and assessment or go to an urgent care. PT has limited ability to go to urgent care. IT is decided among pt, [facility], and [facility] that an ambulance would best suit her needs and have the elbow examined at the hospital. After some discussion pt agrees. [facility] contacts [facility] via 911 for [facility] per pt request. [facility] waits for EMS and assists EMS with pt extrication. [facility] clears. ...................... ...................... ...................... ...................... ...................... ...................... ......... Disposition: [facility] FERNANDA COHN MD [address] [place] [address],[address], [place], [phone], [facility] 12/26/2023 18:02:37 05/10/2024 text/html [facility] Nurse Triage Notes (Susana Murguia - RN): Reason For Request: Pt's MONORAIL OPERATOR Emmie reporting weakness, dizziness, headache going on 2-3 days>mbr was in the hospital was septic on 05/01/24 Denies: Worst Headache of life New onset of vision loss Sudden onset -unilateral weakness/gait disturbance Fall with head strike and altered LOC New onset of Slurred speech or difficulty finding words Sudden Mental status changes Head pain with fever chills and neck pain Seizure activity Chief Complaints: Weakness, Dizziness, Headache PMH: Hypothyroidism, Anxiety Disorder, Gastroesophageal Reflux Disease (GERD), Chronic Back Pain, Chronic Pain, Cholecystectomy PMH Reviewed at 05/10/2024: Allergies Reviewed at 05/10/2024:48 Comments: Patients MONORAIL OPERATOR calling in to place a referral, patient identified via name and . MONORAIL OPERATOR and patient a poor historian of PMH, information obtained from [facility]. Per records patient also has cerebral palsy and diabetes insipidus. Patient recently hospitalized for sepsis, unsure the source. Patient reports a 2-3 day history of generalized weakness, headache and dizziness. Denies chest pain, no shortness of breath, no blurry vision, no slurred speech, denies any left sided jaw, neck, shoulder or arm pain, denies fever/chills. Patient would like to be evaluated. Manager Field Service Organization Information for Lam[facility] [employer] Name: [facility].? Address: [address] [place] [address], Pharmacy Tech: Keyon Wise MD CLIA No.: [id number] Manager Field Service POC Test Results from [facility] Chem8+ (16:50:32) Na: 139 mEq/L K: 3.5 mEq/L Cl: 103 mEq/L iCa: 1.17 mmol/L TCO2: 24 mmol/L Glu: 136 mg/dL BUN: 13 mg/dL Crea: 0.7 mg/dL Hct: 37 % Hb: 12.6 g/dL A ...................... ...................... ...................... ...................... ...................... ...................... ......... Manager Field Service Note From Lamonte Owens: Dispatch to the call address for the female with with lethargy. Pt states she was discharged from the hospital approx 5 days ago and has had general malaise/lethargy the whole time. She is awaiting her follow up appt with her PCP. She denies chest pain, vision changes, diff breathing/SoB, urinary symptoms or any other complaints at this time. She is able to maintain PO hydration and is eating to her baseline. She is also able to ambulate and care for herself at this time. Patient was found laying in bed, CAOX4, in no obvious distress, breathing non-labored, airway open and patent. Mucus membranes pink and moist, skin PWD with good turgor, lung sounds CTA, A febrile, ABD soft nontender/distended, ? CVA tenderness, Pupils PERRL, ? Edema/swelling. [facility] consulted. BMP. Pt given 40MeQ of PO Potassium. Red flags discussed. All times are approximate. ...................... ...................... ...................... ...................... ...................... ...................... ......... [facility] [place]: Lakshmi Jarvis ...................... ...................... ...................... ...................... ...................... ...................... ......... Disposition: Fulfilled Lakshmi Jarvis MD [address] [facility],[address], [place], [address], [employer] 05/10/2024 18:07:06 OBGyn Episode No OBEpisode recorded.
--- OUTSIDE RECORDS SUMMARY | 2024-05-19 15:26 | XMS_ITS | Clinical Summary ---
Author Organization [facility] Address [address] [place] [address] Phone Care Team Providers Care Nursing Home Assistant Administrator Name Role Phone Deonte Carmona Primary Care [...] by mouth at bedtime. 09/26/19 19 Active cefdinir (OMNICEF) 300 mg capsule Take [...] 7 days. 15 tablet 05/05/19 25 025 polyethylene glycol (MIRALAX) 17 gram packet Take 17 g by mouth 1 (one) time each day for 10 days. 10 packet 05/06/19 25 025 cefdinir (OMNICEF) 300 mg capsule Take 1 capsule (300 mg total) by mouth 2 (two) times a day for 10 days. 20 each 05/05/19 25 025 Active Problems Problem Noted Date Diagnosed Date Pyelonephritis 05/05/2024 Bacteremia 05/05/2024 Acute cystitis without hematuria 05/01/2024 Encounters Date Type Department Care Team Description 05/01/2024 4:39 PM EST - 05/05/2024 1:37 PM EST Hospital Encounter [facility] Unit [address] [place] [address] Lencho Hernandez MD Jones, Christopher, MD Kela, Kashyap Devendrabhai, MD Acute cystitis without hematuria (Primary Dx); Acute urinary retention; SIRS due to infectious process with acute organ dysfunction (CMS/HCC) Discharge Disposition: Home-Health Care Svc from Last 3 Months Surgical History Surgery Date Site/Laterality Comments APPENDECTOMY OTHER SURGICAL HISTORY Transsphenoidal hypophysectomy OTHER SURGICAL HISTORY Multiple surgeries at [facility] related to cerebral palsy Medical History Medical History Date Comments Diabetes mellitus (CMS/HCC) Hypertension Depression Cerebral palsy (CMS/HCC) Diabetes insipidus (CMS/[facility]) Hypothyroidism Hyperlipidemia Migraines Anxiety Chronic anemia GERD [...] of3 resultswithin the time period is included. [facility] Signature Glucose POCT 104(H) 70 - 100 mg/dL 05/05/2024 6:09 AM EST [facility] Blood Capillary blood specimen / Unknown 05/05/2024 6:09 AM EST 05/05/2024 6:10 AM EST Moses Whyte MD LAB POINT O F CARE TEST DOCKED DEVICE UNSOLICITED RESULTS Final Result [facility] [place] ([facility] [address] [place] [address], [place] [phone] * CT Abdomen Pelvis w Contrast (05/03/2024 [...] Signed Date: 05/03/2024 15:24 ET Workstation ID: [id number] Transcribed By: Self Edit Transcribed Date: 05/03/2024 [...] Signed Date: 05/03/2024 15:24 ET Workstation ID: [id number] Transcribed By: Self Edit Transcribed Date: 05/03/2024 15:13 ET Moses Whyte MD IM CT PROCEDURES F inal Result * (ABNORMAL) Complete blood count (05/03/2024 6:05 AM EST) WBC 7.2 4.8 - 10.8 K/mcL LAB HEMETOLOGY METHOD 05/03/2024 7:13 AM [facility] RBC 3.20(L) 3.80 - 4.80 M/mcL LAB HEMETOLOGY METHOD 05/03/2024 7:13 AM [facility] Hemoglobin 10.5(L) 11.5 - 16.0 g/dL LAB HEMETOLOGY METHOD 05/03/2024 7:13 AM [facility] Hematocrit 31.9(L) 35.0 - 47.0 % LAB HEMETOLOGY METHOD 05/03/2024 7:13 AM [facility] MCV 99.4(H) 79.0 - 98.0 FL LAB HEMETOLOGY METHOD 05/03/2024 7:13 AM [facility] MCH 32.7(H) 27.0 - 32.0 pcg LAB HEMETOLOGY METHOD 05/03/2024 7:13 AM [facility] MCHC 32.9 32.0 - 37.0 g/dL LAB HEMETOLOGY METHOD 05/03/2024 7:13 AM [facility] RDW 13.9 11.0 - 15.0 % LAB HEMETOLOGY METHOD 05/03/2024 7:13 AM [facility] Platelets 186 130 - 400 K/mcL LAB HEMETOLOGY METHOD 05/03/2024 7:13 AM [facility] MPV 10.8 7.0 - 11.0 FL LAB HEMETOLOGY METHOD 05/03/2024 7:13 AM [facility] NRBC 0.0 <1.0 % LAB HEMETOLOGY METHOD 05/03/2024 7:13 AM EST [facility] NRBC Absolute 0.00 <0.10 K/mcL LAB HEMETOLOGY METHOD 05/03/2024 7:13 AM EST [facility] Blood Venous blood specimen / Unknown Venipuncture / Unknown 05/03/2024 6:05 AM EST 05/03/2024 6:47 AM EST us Moses Whyte MD LAB BLOOD ORDERABLE S Final Result Performing Organization Address City/[facility]/ZIP Co de Phone Number [facility] [address] [place] [address], [place] [phone] * (ABNORMAL) Phosphorus (05/03/2024 6:05 AM EST) Phosphorus 2.2(L) 2.5 - 4.5 mg/dL LAB CHEMISTRY METHOD 05/03/2024 7:27 AM EST [facility] Blood Venous blood specimen / Unknown Venipuncture / Unknown 05/03/2024 6:05 AM EST 05/03/2024 6:48 AM EST us Moses Whyte MD LAB BLOOD ORDERABLE S Final Result [facility] [address] [place] [address], [place] [phone] * Magnesium (05/03/2024 6:05 AM EST) Only the most recent of3 resultswithin the time period is included. Magnesium 1.9 1.9 - 2.6 mg/dL LAB CHEMISTRY METHOD 05/03/2024 7:27 AM EST [facility] Blood Venous blood specimen / Unknown Venipuncture / Unknown 05/03/2024 6:05 AM EST 05/03/2024 6:48 AM EST Moses Whyte MD LAB BLOOD ORDERABLE S Final Result [facility] [address] [place] [address], [place] [phone] * (ABNORMAL) Basic metabolic panel (05/03/2024 6:05 AM EST) Only the most recent of3 resultswithin the time period is included. Sodium 135 133 - 145 mmol/L LAB CHEMISTRY METHOD 05/03/2024 7:27 AM [facility] Potassium 3.7 3.5 - 5.5 mmol/L LAB CHEMISTRY METHOD 05/03/2024 7:27 AM [facility] Chloride 103 96 - 110 mmol/L LAB CHEMISTRY METHOD 05/03/2024 7:27 AM [facility] CO2 25 21 - 32 mmol/L LAB CHEMISTRY METHOD 05/03/2024 7:27 AM [facility] Anion Gap 7 3 - 11 LAB CHEMISTRY METHOD 05/03/2024 7:27 AM [facility] Glucose 107(H) 70 - 100 mg/dL LAB CHEMISTRY METHOD 05/03/2024 7:27 AM [facility] BUN 17 5 - 25 mg/dL LAB CHEMISTRY METHOD 05/03/2024 7:27 AM [facility] Creatinine 0.99 0.50 - 1.10 mg/dL LAB CHEMISTRY METHOD 05/03/2024 7:27 AM [facility] eGFR 70 >=60 mL/min/1. 73m2 LAB CHEMISTRY METHOD 05/03/2024 7:27 AM [facility] Comment:Calculation based on the??Chronic Kidney Disease Epidemiology Collaboration (CKD-EPI) equation refit??without adjustment for race. BUN/Creatinine Ratio 17.2 LAB CHEMISTRY METHOD 05/03/2024 7:27 AM [facility] Calcium 8.8 8.5 - 10.5 mg/dL LAB CHEMISTRY METHOD 05/03/2024 7:27 AM [facility] Blood Venous blood specimen / Unknown Venipuncture / Unknown 05/03/2024 6:05 AM EST 05/03/2024 6:48 AM EST Moses Whyte MD LAB BLOOD ORDERABLE S Final Result [facility] [address] [place] [address], * (ABNORMAL) CBC auto differential (05/02/2024 6:24 AM EST) Only the most recent of2 resultswithin the time period is included. WBC 16.5(H) 4.8 - 10.8 K/mcL LAB HEMETOLOGY METHOD 05/02/2024 7:33 AM [facility] RBC 3.20(L) 3.80 - 4.80 M/mcL LAB HEMETOLOGY METHOD 05/02/2024 7:33 AM [facility] Hemoglobin 10.7(L) 11.5 - 16.0 g/dL LAB HEMETOLOGY METHOD 05/02/2024 7:33 AM [facility] Hematocrit 32.0(L) 35.0 - 47.0 % LAB HEMETOLOGY METHOD 05/02/2024 7:33 AM [facility] MCV 99.1(H) 79.0 - 98.0 FL LAB HEMETOLOGY METHOD 05/02/2024 7:33 AM [facility] MCH 33.1(H) 27.0 - 32.0 pcg LAB HEMETOLOGY METHOD 05/02/2024 7:33 AM [facility] MCHC 33.4 32.0 - 37.0 g/dL LAB HEMETOLOGY METHOD 05/02/2024 7:33 AM [facility] RDW 14.1 11.0 - 15.0 % LAB HEMETOLOGY METHOD 05/02/2024 7:33 AM [facility] Platelets 202 130 - 400 K/mcL LAB HEMETOLOGY METHOD 05/02/2024 7:33 AM [facility] MPV 10.4 7.0 - 11.0 FL LAB HEMETOLOGY METHOD 05/02/2024 7:33 AM [facility] NRBC 0.0 <1.0 % LAB HEMETOLOGY METHOD 05/02/2024 7:33 AM [facility] NRBC Absolute 0.00 <0.10 K/mcL LAB HEMETOLOGY METHOD 05/02/2024 7:33 AM [facility] Neutrophils Relative 86.7 % LAB HEMETOLOGY METHOD 05/02/2024 7:33 AM [facility] Lymphocytes Relative 3.8 % LAB HEMETOLOGY METHOD 05/02/2024 7:33 AM [facility] Monocytes Relative 8.5 % LAB HEMETOLOGY METHOD 05/02/2024 7:33 AM [facility] Eosinophils Relative 0.2 % LAB HEMETOLOGY METHOD 05/02/2024 7:33 AM [facility] Basophils Relative 0.3 % LAB HEMETOLOGY METHOD 05/02/2024 7:33 AM [facility] Immature Granulocytes Relative 0.5 % LAB HEMETOLOGY METHOD 05/02/2024 7:33 AM [facility] Neutrophils Absolute 14.28(H) 1.50 - 7.00 K/mcL LAB HEMETOLOGY METHOD 05/02/2024 7:33 AM [facility] Lymphocytes Absolute 0.63(L) 1.00 - 5.00 K/mcL LAB HEMETOLOGY METHOD 05/02/2024 7:33 AM EST [facility] Monocytes Absolute 1.40(H) 0.20 - 1.00 K/mcL LAB HEMETOLOGY METHOD 05/02/2024 7:33 AM EST [facility] Eosinophils Absolute 0.03 0.00 - 0.50 K/mcL LAB HEMETOLOGY METHOD 05/02/2024 7:33 AM EST [facility] Basophils Absolute 0.05 0.00 - 0.20 K/mcL LAB HEMETOLOGY METHOD 05/02/2024 7:33 AM EST [facility] Immature Granulocytes Absolute 0.09(H) 0.00 - 0.03 K/mcL LAB HEMETOLOGY METHOD 05/02/2024 7:33 AM EST [facility] Blood Venous blood specimen / Unknown Venipuncture / Unknown 05/02/2024 6:24 AM EST 05/02/2024 6:35 AM EST us Ezequiel Reeves MD LAB BLOOD ORDERABLES Final Result [facility] [address] [place] [address], * (ABNORMAL) Blood Culture, Peripheral Draw #1 (05/01/2024 10:35 PM EST) Only the most recent of2 resultswithin the time period is included. Culture, Blood Klebsiella pneumoniae ssp pneumoniae(AA) NATALIA 05/04/2024 8:49 AM EST [facility] Comment: The organism value for this result has been updated. These results have been appended to the previously preliminary verified report. This is an edited result. Previous organism was Gram negative bacilli on 05/03/2024 at 1014 EST. Gram Stain Result Anaerobic bottle Gram negative bacilli(AA) 05/04/2024 8:49 AM EST [facility] Comment:This is an appended report. These results have been appended to a previously preliminary verified report. Blood Venous blood specimen / Unknown Venipuncture / Unknown 05/01/2024 10:35 PM EST 05/01/2024 10:51 PM EST Narrative [facility] - 05/04/2024 8:49 AM EST FOR SUSCEPTIBILITIES, REFER TO PREVIOUS CULTURE FROM 05/01/24 at 2231. Lencho Hernandez MD LAB MICROBIOLOGY - GENERAL ORD ERABLES Final Result [facility] [address] [place] [address], [place] [phone] * (ABNORMAL) Blood culture pathogens molecular study (05/01/2024 10:31 PM EST) Pathologist [facility] Klebsiella pneumoniae group Detected (A) Not Detected LAB MICROBIOLOGY METHOD 05/02/2024 1:14 PM EST [facility] Blood Venous blood specimen / Unknown Venipuncture / Unknown 05/01/2024 10:31 PM EST 05/01/2024 10:51 PM EST Lencho Hernandez MD LAB MICROBIOLOGY - GENERAL ORD ERABLES Final Result Performing Organization Address [facility]/ZIP Co de Phone Number [facility] [address] [place] [address], [place] [phone] * (ABNORMAL) Urine culture (05/01/2024 9:04 PM EST) Pathologist [facility] Culture, Urine >100,000 CFU/mL Klebsiella pneumoniae ssp pneumoniae(A) NATALIA 05/04/2024 7:37 AM EST [facility] Comment: This is an edited [...] MICROBIOLOGY - GENERAL ORD ERABLES Final Result [facility] [address] [place] [address], * (ABNORMAL) Urinalysis with reflex microscopic (05/01/2024 8:52 PM EST) Specific [place] Urine 1.015 1.003 - 1.030 LAB URINALYSIS - AUTOMATED METHOD 05/01/2024 9:35 PM EST [facility] pH, Urine 6.0 5.0 - 8.0 pH LAB URINALYSIS - AUTOMATED METHOD 05/01/2024 9:35 PM EST [facility] Leukocytes, Urine Large(A) Negative LAB URINALYSIS - AUTOMATED METHOD 05/01/2024 9:35 PM EST [facility] Nitrite, Urine Positive(A) Negative LAB URINALYSIS - AUTOMATED METHOD 05/01/2024 9:35 PM [facility] Protein, Urine 100(A) <=Trace mg/dL LAB URINALYSIS - AUTOMATED METHOD 05/01/2024 9:35 PM [facility] Glucose, Urine Negative Negative mg/dL LAB URINALYSIS - AUTOMATED METHOD 05/01/2024 9:35 PM [facility] Ketones, Urine Negative Negative mg/dL LAB URINALYSIS - AUTOMATED METHOD 05/01/2024 9:35 PM [facility] Urobilinogen , Urine 0.2 0.2 - 1.0 mg/dL LAB URINALYSIS - AUTOMATED METHOD 05/01/2024 9:35 PM [facility] Bilirubin, Urine Negative Negative LAB URINALYSIS - AUTOMATED METHOD 05/01/2024 9:35 PM [facility] Blood, Urine Large(A) Negative LAB URINALYSIS - AUTOMATED METHOD 05/01/2024 9:35 PM [facility] RBC, Urine 15.0(H) 0 - 4 /HPF LAB URINALYSIS - AUTOMATED METHOD 05/01/2024 9:35 PM [facility] WBC, Urine 1,157.7(H) 0 - 4 /HPF LAB URINALYSIS - AUTOMATED METHOD 05/01/2024 9:35 PM [facility] Squamous Epithelial, Urine 8 0 - 60 /LPF LAB URINALYSIS - AUTOMATED METHOD 05/01/2024 9:35 PM [facility] Bacteria, Urine Many(A) Negative /HPF LAB URINALYSIS - AUTOMATED METHOD 05/01/2024 9:35 PM [facility] Hyaline Casts, Urine 0.0 0 - 3 /LPF LAB URINALYSIS - AUTOMATED METHOD 05/01/2024 9:35 PM [facility] Urine Urine specimen obtained by clean catch procedure / Unknown Non-blood Collection / Unknown 05/01/2024 8:52 PM EST 05/01/2024 9:14 PM EST us Lencho Hernandez MD LAB URINE ORDERABLES Final Res ult [facility]) [facility] [address] [place] [address], [place] [phone] * XR Chest 2 Views (05/01/2024 7:34 PM EST) Anatomical Region Laterality Modality Body Radiographic Aniyah ging 05/02/2024 9:30 AM EST Impressions 05/02/2024 9:34 AM EST Hypoventilatory exam. ??No acute findings. -------- FINAL REPORT -------- Dictated By: Stefan Ambriz Dictated Date: 05/02/2024 09:30 ET Assigned Physician: Stefan Ambriz Reviewed and Electronically Signed By: Stefan Ambriz Signed Date: 05/02/2024 09:34 ET Workstation ID: [id number] Transcribed By: Self Edit Transcribed Date: 05/02/2024 [...] Signed Date: 05/02/2024 09:34 ET Workstation ID: [id number] Transcribed By: Self Edit Transcribed Date: 05/02/2024 09:30 ET us Lencho Hernandez MD IMG XR PROCEDURES Final Result * Respiratory virus panel molecular study (05/01/2024 5:44 PM EST) Adenovirus Detection by PCR Not Detected Not Detected LAB MICROBIOLOGY METHOD 05/01/2024 6:55 PM EST [facility] Influenza A PCR Not Detected Not Detected LAB MICROBIOLOGY METHOD 05/01/2024 6:55 PM EST [facility] Influenza B PCR Not Detected Not Detected LAB MICROBIOLOGY METHOD 05/01/2024 6:55 PM EST [facility] Coronavirus 229E Not Detected Not Detected LAB MICROBIOLOGY METHOD 05/01/2024 6:55 PM [facility] Coronavirus HKU1 Not Detected Not Detected LAB MICROBIOLOGY METHOD 05/01/2024 6:55 PM EST [facility] Coronavirus OC43 Not Detected Not Detected LAB MICROBIOLOGY METHOD 05/01/2024 6:55 PM [facility] Coronavirus NL63 Not Detected Not Detected LAB MICROBIOLOGY METHOD 05/01/2024 6:55 PM [facility] Parainfluenza Virus 1 Not Detected Not Detected LAB MICROBIOLOGY METHOD 05/01/2024 6:55 PM [facility] Parainfluenza Virus 2 Not Detected Not Detected LAB MICROBIOLOGY METHOD 05/01/2024 6:55 PM [facility] Parainfluenza Virus 3 Not Detected Not Detected LAB MICROBIOLOGY METHOD 05/01/2024 6:55 PM EST [facility] Parainfluenza Virus 4 Not Detected Not Detected LAB MICROBIOLOGY METHOD 05/01/2024 6:55 PM [facility] RSV PCR Not Detected Not Detected LAB MICROBIOLOGY METHOD 05/01/2024 6:55 PM [facility] Human Metapneumovirus A and B Not Detected Not Detected LAB MICROBIOLOGY METHOD 05/01/2024 6:55 PM EST [facility] Rhinovirus/Entero virus Not Detected Not Detected LAB MICROBIOLOGY METHOD 05/01/2024 6:55 PM EST [facility] Bordetella pertussis Not Detected Not Detected LAB MICROBIOLOGY METHOD 05/01/2024 6:55 PM EST [facility] Bordetella parapertussis Not Detected Not Detected LAB MICROBIOLOGY METHOD 05/01/2024 6:55 PM EST [facility] Mycoplasma pneumo by PCR Not Detected Not Detected LAB MICROBIOLOGY METHOD 05/01/2024 6:55 PM EST [facility] Chlamydia pneumoniae Not Detected Not Detected LAB MICROBIOLOGY METHOD 05/01/2024 6:55 PM EST [facility] SARS COV-2 Not Detected Not Detected LAB MICROBIOLOGY METHOD 05/01/2024 6:55 PM EST [facility] Swab Both anterior nares / Unknown Non-blood Collection / Unknown 05/01/2024 5:44 PM EST 05/01/2024 5:57 PM EST [facility] - 05/01/2024 6:55 PM EST Testing was performed using the [employer] Respiratory Pathogen PCR Assay. All results must [...] MICROBIOLOGY - GENERAL ORD ERABLES Final Result [facility] [address] [place] [address], * Troponin I high sensitivity (05/01/2024 5:42 PM EST) High Sensitivity Troponin I 4 <=54 ng/L LAB CHEMISTRY METHOD 05/01/2024 6:27 PM EST [facility] Blood Venous blood specimen / Unknown Venipuncture / Unknown 05/01/2024 5:42 PM EST 05/01/2024 5:57 PM EST Narrative [facility] - 05/01/2024 6:27 PM EST High levels of biotin in samples may falsely decrease hsTroponin values. ??Use caution when interpreting hsTroponin results in patients taking biotin who exhibit renal impairment (eGFR <60) or in patients taking more than 20 mg/day of biotin. us Lencho Hernandez MD LAB BLOOD ORDERABLES Final Res ult Performing Organization Address [facility] Co de Phone Number [facility] [address] [place] [address], [place] [phone] * Thyroid stimulating hormone with reflex to free t4 and free t3 (TSH Reflex) (05/01/2024 5:42 PM EST) [facility] TSH 0.84 0.40 - 4.00 mcIU/mL LAB CHEMISTRY METHOD 05/01/2024 6:35 PM EST [facility] Blood Venous blood specimen / Unknown Venipuncture / Unknown 05/01/2024 5:42 PM EST 05/01/2024 5:57 PM EST us Lencho Hernandez MD LAB BLOOD ORDERABLES Final Res ult Performing Organization Address [facility]/ZIP Co de Phone Number [facility] [address] [place] [address], [place] [phone] * (ABNORMAL) Hepatic function panel (05/01/2024 5:42 PM EST) [facility] Total Protein 6.4 6.0 - 8.0 g/dL LAB CHEMISTRY METHOD 05/01/2024 6:27 PM EST [facility] Albumin 3.4 3.2 - 5.0 g/dL LAB CHEMISTRY METHOD 05/01/2024 6:27 PM EST [facility] Total Bilirubin 1.3 0.0 - 1.4 mg/dL LAB CHEMISTRY METHOD 05/01/2024 6:27 PM [facility] Bilirubin, Direct 0.6(H) 0.0 - 0.3 mg/dL LAB CHEMISTRY METHOD 05/01/2024 6:27 PM [facility] Bilirubin, Indirect 0.7 0.0 - 1.1 mg/dL LAB CHEMISTRY METHOD 05/01/2024 6:27 PM [facility] ALT (SGPT) 53 10 - 60 unit/L LAB CHEMISTRY METHOD 05/01/2024 6:27 PM [facility] AST (SGOT) 37 10 - 42 unit/L LAB CHEMISTRY METHOD 05/01/2024 6:27 PM [facility] Alkaline Phosphatase 118 42 - 121 unit/L LAB CHEMISTRY METHOD 05/01/2024 6:27 PM [facility] Blood Venous blood specimen / Unknown Venipuncture / Unknown 05/01/2024 5:42 PM EST 05/01/2024 5:57 PM EST us Lencho Hernandez MD LAB BLOOD ORDERABLES Final Res ult [facility] [address] [place] [address], * ECG 12 lead (05/01/2024 5:33 PM EST) Ventricular Rate ECG 110 BPM GEM[facility] Atrial Rate 110 BPM GEM[facility] P-R Interval 128 ms GEMUSE QRS Duration 74 ms GEMUSE Q-T Interval 342 ms GEMUSE QTc 462 ms GEMUSE P Wave Wendell 54 degrees GEMUSE R [place] 25 degrees GEMUSE T [place] 12 degrees GEMUSE ECG Interpretation Sinus tachycardia Nonspecific T wave abnormality Abnormal ECG When compared with ECG of 14-JAN-2023 05:15, Nonspecific T wave abnormality now evident in Lateral leads Confirmed by REAL GUERIN ([id number]) on 05/02/2024 2:44:43 PM GEMUSE 05/01/2024 5:33 PM EST 05/02/2024 2:44 PM EST us Lencho Hernandez MD ECG ORDERABLES Final Result GEM[facility] * ECG-Annotated (05/01/2024) Provider Onbase ECG ORDERABLES Final Result from Last [address] [place] [address] [place] [address] MEDICARE Member Subscriber Plan / Payer (Ef fective 2017-Present) Name:Addis Durant Relation to Subscriber:Self Name:Addis Durant Payer ID:[id number] Group ID:[id number] Type:Not on file Address: [place] [address] [address] [id number] Advance Directives Documents on File Type Date Recorded Patient Floor Care Specialist Expl anation Health Care Decision (hx) 01/15/2023 [...] currently active code status orders. Care Teams Nursing Home Assistant Administrator Relationship Specialty Start Date End Date Deonte Carmona PA PCP - General Physician Food Preparation Supervisor 05/01/24
--- OUTSIDE RECORDS SUMMARY | 2024-05-19 15:26 | XMS_ITS | Continuity of Care Document ---
Author Organization [facility], [place] [facility] - [facility] Address [address] [place] [id number] Care Team Providers Care Deputy Fire Marshal Name Role Phone HIM CCA Referring Provider DARRION BARNES Primary Care Provider [phone] Assessment Encounter Date Assessment Date Assessment LastModified by Organization Details LastModified Time 05/10/2024 05/10/2024 I have reviewed and agree with the assessment and plan as documented by the musician instrumental. I provided real-time medical direction for this [...] functioning. VSS. Exam otherwise unremarkable per the musician instrumental. BMP reveals K 3.5. Otherwise unremarkable. Impression: [...] BMP, serum or plasma 2024 025 panchopetros [facility], [address] [place] [address], [phone], 5 16:54:48 Referral None recorded. Procedures None recorded. Surgeries None recorded. Imaging None recorded. Medication Orders potassium chloride ER 20 mEq tablet,ext ended release [address] [place] [address]/Pharmacy #[id number], [address] [place], [address], 5 16:53:27 Patient TargetsNo targets recorded. Patient InstructionsNo instructions [...] Not available Not available Not available 12/26/2023 [id number] 4 RxNorm Not Available [facility] - production 5 13:48:13 6340 Ambien medicatio n Not available Not available Not available 12/26/2023 06140 5 RxNorm Not Available [facility] - production 5 13:48:13 6341 trazodone medicatio n Not available Not available Not available 12/26/2023 20698 RxNorm Not Available [facility] - production 4 [...] Available Not Avai lable Vitals Date Recorded Oxygen saturation Oxygen saturation in Arterial blood by Pulse oximetry Body temperature Respiratory rate Heart rate Systolic blood pressure Diastolic blood pressure Provider Name and Address Organization Details Last Updated DateTime 5 97 % 97 % 98.2 [degF] 17 /min 86 /min 128 mm[Hg] 82 mm[Hg] Not Available [facility] - production 16:32:24 Social History None recorded. Functional Status None recorded. Mental Status None recorded. Family History Nothing Reported. Medical History No medical history recorded. Gynecological HistoryNo gynecological history recorded. Obstetrics History GPAL:G 0 P 0 0 0 0 Past Encounters Encounter ID Performer Location Encounter Start Date Encounter Closed Date Diagnosis/Indication Diagnosis SNOMED-CT Code Diagnosis ICD10 Code Diagnosis Note [id number] Lakshmi Jarvis MD [facility] - [facility] [address] [place] [phone] 05/10/2024 16:20:31 05/10/2024 21:46:36 Fatigue 52625060 R53.83 Hypokalemia 68800515 E87 .6 Health Concerns Section Related Observation LastModified by Organization Detai ls LastModified Time None Recorded Concern Status LastModified by Organization Details LastModified Time None Recorded Payers Encounter Date Sequence Insurance Name Policy Number Policy Oconnor Covered Member ID Oconnor Member ID Guarantor Name 05/10/2024 1 [facility] - DOS ON OR AFTER 2022 - DUAL ELIGIBLE - CUSTODIAL OPTIONS AND ONE CARE (MEDICARE REPLACEMENT/ADV ANTAGE - HMO) Addis Durant [id number] Addis Durant Notes Date Note Type Note Provider Name and Address Organization Details Recorded Time 05/10/2024 text/html CRC Nurse Triage Notes (Susana Murguia - RN): Reason For Request: 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 MECHANICAL LABORATORY TECHNICIAN and patient a poor historian of PM, information obtained from eCW. Per records patient [...] fever/chills. Patient would like to be evaluated. Lime Trimmer Organization Information for Lamonte Owens [employer] Legal Name: [employer]? Address: [address] [place] [id number], Welding Teacher: Keyon Wise MD CLIA No.: [id number] Lime Trimmer POC Test Results from Lamonte Owens iSTAT Chem8+ (16:50:32) Na: 139 mEq/L K: 3.5 mEq/L Cl: 103 mEq/L iCa: 1.17 mmol/L TCO2: 24 mmol/L Glu: 136 mg/dL BUN: 13 mg/dL Crea: 0.7 mg/dL Hct: 37 % Hb: 12.6 g/dL A ...................... ...................... ...................... ...................... ...................... ...................... ......... Lime Trimmer Note From Lamonte Owens: Dispatch to the [...] ? CVA tenderness, Pupils PERRL, ? Edema/swelling. C consulted. BMP. Pt given 40MeQ of PO Potassium. Red flags discussed. All times are approximate. ...................... ...................... ...................... ...................... ...................... ...................... ......... [facility] [place] [facility] Consulted: Lakshmi Jarvis ...................... ...................... ...................... ...................... ...................... ...................... ......... Disposition: Norma Jarvis MD [address] [facility],[address], [place], [address], [employer] 05/10/2024 18:07:06 OBGyn Episode No OBEpisode recorded.
[2024-05-19 15:31] LABS: Appearance Urine Cloudy; Color Urine Yellow; Glucose Urine UA Negative (Negative); Leukocyte Esterase Urine Large (3+) (Negative); Nitrite Urine Negative (Negative); Specific Gravity - Urine 1.015 (1.005-1.025); UMIC TRIGGER UACC YES; Urine Blood Negative (Negative); Urine Ketones Negative (Negative); Urine Protein Trace mg/dL (Neg-Trace)
[2024-05-19 16:05] LABS: Bacteria Urine 3+ (None Seen); Calcium Oxalate Crystals Urine Present; Hyaline Casts Urine 0-2 /LPF (0-2); RBC Urine 0-2 /HPF (0-2); UACC Culture Trigger YES; WBC Urine >50 /HPF (0-5)
== END 2024-05-18 00:01 | disposition home or self-care (01) ==
LOC: HO.LNP
PROVIDERS: Visit Provider Nurse Practitioner Family
DX: N12 Tubulo-interstitial nephritis, not specified as acute or chronic (principal)
CPT/HCPCS: 81001; 87086

== ENCOUNTER 2024-06-09 10:15 | Outpatient (AMB) | payer OTHER, SELFPAY ==
--- NOTE | 2024-06-09 10:20 | MHC.PC.OV ---
Vital Signs 06/09/24 10:23 Height 4 ft 8 in Weight 208 lb 8.917 oz BMI 46.8 BP 120/76 Blood Pressure Location Lt brachial Position Sitting Pulse 101 H Pulse Source Pulse Oximeter Pulse Oximetry (%) 96 Oxygen Delivery Method Room Air Intake Visit Reasons: Dizziness Campus Interviews Intern Required: No Accompanied by: MASTER WELDER Allergies trazodone Allergy (Unknown, Verified 06/09/24 10:46) hives zolmitriptan [Zomig] Allergy (Unknown, Verified 06/09/24 10:46) hives zolpidem [Ambien] Allergy (Unknown, Verified 06/09/24 10:46) hives Medication List - Last Reconciled 06/09/24 by Deonte Carmona PA-C acetaminophen ER 1,300 mg (2 x 650 mg) PO Q12H PRN 90 days [adult pull ups As directed] atorvastatin 40 mg PO DAILY bisacodyl (Laxative (bisacodyl)) mg PO bisacodyl 10 mg WI DAILY PRN gcfqhtdhsy-krdhqhactreri-kihm 50-325-40 mg 1 tab PO Q6H PRN cholecalciferol (vitamin D3) (Vitamin D3) 50 mcg PO DAILY desmopressin 0.1 mg PO BID 90 days [disposable bedpads As directed] disposable gloves As directed disposable gloves As directed docusate sodium (Colace) 100 mg PO BID 30 days doxepin 75 mg PO BID [Drop arm bed side commode As directed] famotidine 40 mg PO BEDTIME ferrous sulfate 325 mg PO DAILY 90 days Gait belt As directed incontinence pad, liner, disp As directed [incontinence wipes As directed] [incontinence wipes As directed] levothyroxine 75 mcg PO 6XW lidocaine 5% (Lidoderm) 1 patch topical DAILY meclizine 25 mg PO DAILY PRN 14 days methylcellulose (laxative) (Fiber Therapy (methylcellulose)) 500 mg PO TID miconazole nitrate (Monistat 3) 1 appful vaginal BEDTIME 3 days mirabegron ER (Myrbetriq) 25 mg PO DAILY miscellaneous medical supply 1 ea miscellaneous BID 90 days miscellaneous medical supply 1 ea miscellaneous DAILY 99 days naproxen 500 mg PO BID 15 days omeprazole 40 mg PO DAILY pregabalin 200 mg PO BID 30 days quetiapine 50 mg PO DAILY quetiapine 200 mg PO DAILY ramelteon 8 mg PO BEDTIME 30 days sulfamethoxazole-trimethoprim 800-160 mg tabs PO tizanidine 4 mg PO BID 90 days tramadol 50 mg PO BID 30 days valacyclovir (Valtrex) 1,000 mg PO DAILY 90 days valacyclovir (Valtrex) 500 mg PO DAILY 90 days venlafaxine ER 150 mg PO DAILY 90 days vitamin B complex (B Complex-Vitamin B12 tablet) 1 tab PO DAILY walker As directed [wheelchair- manual As directed] Tobacco use date assessed: 08/20/23 Dental Screening Dental Screen Date: 08/20/23 HPI Dizziness HPI Details Patient is a 48 year-old female here today for follow-up visit. . Patient has an extensive past medical history including cerebral palsy, diabetes insipidus, migraines, insomnia, IBS, depression, lumbr spine pain, HLD, , Nephrolithiasis (history of pyelonephritis-requiring nephrostomy tube) Concern--> patient continues to have recurrent UTIs to the point she has been hospitalized a few times over last 6 months for pyelonephritis and urinary sepsis. She has been found to have nephrolithiasis though no obstructing stones. She has been recently placed on Bactrim ds by her urologist. 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 PLAN: Will start trimethoprim 100 mg daily to help reduce recurrent UTIs and help reduce hospitalization for urosepsis. Will try to reach out to patient's treating urologist on plan. CHRONIC MEDICAL CONDITIONS--> ? .. ? 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 Patient currently gets 48 hours of MASTER WELDER services as her cerebral palsy is advanced and has trouble with ambulation and doing ADLs at home. Patient currently uses tramadol and? tizanidine treatment her pains and spasticity secondary to cerebral palsy.? She reports this current regime does manage her pain well. ? ... ? .. ? Hypothyroidism : Is followed by endocrinology and had a recent increase in her levothyroxine to 75 mcg.? Most recent TSH stable2. ?Also patient does have diabetes insipidus to which she takes desmopressin and has been stable. ? .. ? Depression: Patient does see a therapist in [facility], though has lost follow-up with her med provider and gets all of her mental health medications through her PCP. .. Diabetes insipidus: Continues on desmopressin. ? .. ? IBS-constipation type: Patient is chronically using senna due to bouts of constipation due to her IBS.? She has tried senna, Colace, Metamucil, Linzess, Medical magnesia, lactulose all without much relief of her constipation. [facility] Medical History Pyelonephritis Herpes simplex Depression Anxiety Diabetes insipidus Cerebral palsy Surgical History History of surgery on lower extremity Hx of appendectomy Family History Father No problems noted. Mother No problems noted. Social History Housing: Apartment Alcohol intake: never Patient Tobacco Use Status: Never used Tobacco e-Cigarette/Vaping Use: Never Used Second Hand Smoke Exposure: No service: No Current occupational status: disabled Current occupational exposures/hazards: No Cognitive needs: Yes (wheel chair ) Hearing needs: No Vision needs: Yes Questionnaire PHQ-9 Over the last 2 weeks, how often have you been bothered by any of the following problems? 1. Little interest or pleasure in doing things: not at all 2. Feeling down, depressed, or hopeless: not at all 3. Trouble falling or staying asleep, or sleeping too much: not at all 4. Feeling tired or having little energy: not at all 5. Poor appetite or overeating: not at all 6. Feeling bad about yourself - or that you are a failure or have let yourself or your family down: not at all 7. Trouble concentrating on things, such as reading the newspaper or watching television: not at all 8. Moving or speaking so slowly that other people could have noticed. Or the opposite - being so fidgety or restless that you have been moving around a lot more than usual: not at all 9. Thoughts that you would be better off or of hurting yourself in some way: not at all Total score: 0 Depression Screening Interpretation: Negative Depression Screening Done: Yes Source: Developed by Drs. Clayton Meneses, Isabel Ponce, Shailesh Bolanos and colleagues, with an educational josé manuel from [employer]. Thrive Questionnaire Date Thrive assessed: 06/09/24 I am a: Patient What is your living situation today?: I have a steady place to live Within the past 12 months, did the food you bought not last and you didn't have the money to get more?: Never true Within the past 12 months, did you worry whether your food would run out before you got money to buy more?: Never true Do you have trouble paying for medicines?: No Do you have trouble getting transportation to medical appointments?: No Do you have trouble paying your heating and electricity bill?: No Do you have trouble taking care of your child, family member or friend?: No Do you have trouble with day-to-day activities such as bathing, preparing meals, shopping, managing finances, etc.?: No Are you currently unemployed and looking for a job?: No Are you interested in more education?: No Please select the resources that you would like help with: None Currently or been in a relationship where the following occur: No concerns reported THRIVE Score: 0 AUDIT C Alcohol Use Questionnaire (AUDIT-C) 1. How often do you have a drink containing alcohol?: Never Total Score: 0 ARMANDO-7 AMB Questionnaire ARMANDO-7 Date ARMANDO - 7 assessed: 06/09/24 Feeling nervous, anxious, or on edge: 0 = Not at all Not being able to stop or control worryin = Not at all Worrying too much about different things: 0 = Not at all Trouble relaxin = Not at all Being so restless that it is hard to sit still: 0 = Not at all Becoming easily annoyed or irritable: 0 = Not at all Feeling afraid as if something awful might happen: 0 = Not at all Total ARMANDO-7 score (0-4 normal; 5-9 mild; 10-14 moderate; 15-21 severe): 0 Source: Developed by Drs. Clayton Meneses, Isabel Ponce, Shailesh Bolanos and colleagues, with an educational josé manuel from [employer]. Review of Systems Const Denies headache(s) Eyes Denies loss of vision ENT Denies vertigo, Denies dizziness, Denies headache(s) and Denies sore throat Card Denies chest pain, Denies leg edema and Denies lightheadedness Resp Denies cough, Denies hemoptysis and Denies wheezing GI Denies abdominal pain, Denies melena, Denies constipation, Denies diarrhea and Denies vomiting Denies urinary frequency, Denies dysuria and Denies urinary urgency Musc Denies arthralgias, Denies joint swelling, Denies numbness and Denies tingling Neuro Denies Abnormal speech present, Denies behavioral changes, Denies vertigo, Denies dizziness, Denies headache(s), Denies loss of vision, Denies memory loss, Denies numbness and Denies tingling Psych Denies anxiety, Denies behavioral changes, Denies depression, Denies memory loss and Denies panic attacks Landen/Lymph Denies easy bleeding and Denies easy bruising Aller/Immun Denies wheezing Physical exam (Primary Care) Vital Signs: Last Vital Signs Pulse 101 H 06/09/24 10:23 BP 120/76 06/09/24 10:23 Pulse Ox 96 06/09/24 10:23 Oxygen Delivery Method Room Air 06/09/24 10:23 BMI result Body Mass Index 46.8 Tobacco/Smoking Status: Tobacco use Status Tobacco use date assessed 08/20/23 06/09/24 10:23 Patient Tobacco Use Status Never used Tobacco 06/09/24 10:23 e-Cigarette/Vaping Use Never Used 06/09/24 10:23 PHQ-9: PHQ-9 Score PHQ-9: Total score 0 06/09/24 10:55 Depression Screening Interpretation: Negative Thrive Assessment: Date of Thrive Assessment Date Thrive assessed 06/09/24 06/09/24 10:23 Currently or been in a relationship where the following occur: No concerns reported Const Other: Sitting comfortably in wheelchair General: healthy appearing, no acute distress, alert and awake Nutritional Appearance: well nourished Orientation/consciousness: oriented to person, oriented to place and oriented to time HENMT Ears: TM's normal bilaterally General nose exam: Normal nasal mucous membranes and turbinates present Eyes Conjunctivae: conjunctivae normal Sclerae: sclerae normal Pupils: Equal, round and reactive pupils present Neck Neck: Yes no lymphadenopathy and Yes no JVD Thyroid: Thyroid normal Carotids: no bruits Resp Effort & Inspection: normal respiratory effort and not tachypneic Auscultation: no crackles, no rales, no rhonchi and no wheezes Cardio Rate: regular rate Rhythm: regular rhythm Heart sounds: no murmurs and normal S1 and S2 GI Palpation (GI): Soft to palpation, nontender, no hepatomegaly and no splenomegaly Auscultation: normal bowel sounds Skin General skin exam: no rashes or lesions noted and dry skin Neuro General: oriented to person, oriented to place and oriented to time Cranial nerves: Yes Equal, round and reactive pupils present Speech: No Abnormal speech present Gait exam (Neuro): Normal gait present Motor exam (neuro): no tremor noted Extrem Right upper extremity: full ROM Left upper extremity: full ROM Right lower extremity: full ROM; no edema Left lower extremity: full ROM; no edema Psych Mental Status: mental status grossly normal Speech and movement: Normal speech and movement present Affect: normal affect Attitude: cooperative Thought process: Normal thought process present Results AMB Hemoglobin A1c AMB Hemoglobin A1c 5.6 % Last Edit by LUCIA Marshall on 06/09/24 10:57 Results Reviewed Results Reviewed: Laboratory Last Values Hgb A1c (Clinic) 5.6 % (4.0-6.0) 06/09/24 10:55 Coding Level of Care Code Est Pt Level 4 (33126) Diagnoses Recurrent UTI N39.0 Mixed hyperlipidemia E78.2 Hyperlipidemia type: mixed hyperlipidemia Acquired hypothyroidism E03.9 Hypothyroidism type: acquired Cerebral palsy, unspecified type G80.9 Cerebral palsy type: unspecified type Recurrent herpes labialis B00.1 Assessment & Plan Assessment & Plan (1) Recurrent UTI: Code(s): N39.0 - Urinary tract infection, site not specified Category: Medical Plan: As per HPI patient having recurrent UTIs that excluded to the level of pyelonephritis and urosepsis. Unclear etiology at this time. Will supply patient with trimethoprim to start with suppression therapy (2) HLD (hyperlipidemia): Code(s): E78.5 - Hyperlipidemia, unspecified Category: Medical Qualifiers: Hyperlipidemia type: mixed hyperlipidemia Qualified Code(s): E78.2 - Mixed hyperlipidemia Plan: Patient continues with the use of statin therapy. Goal LDL to remain below 130 (3) Hypothyroid: Code(s): E03.9 - Hypothyroidism, unspecified Category: Medical Qualifiers: Hypothyroidism type: acquired Qualified Code(s): E03.9 - Hypothyroidism, unspecified Plan: Patient followed by senior network engineer in [place]. Most recent TSH has been stable. She continues with levothyroxine 75 mcg daily. (4) Cerebral palsy: Comment: W/C Code(s): G80.9 - Cerebral palsy, unspecified Category: Medical Qualifiers: Cerebral palsy type: unspecified type Qualified Code(s): G80.9 - Cerebral palsy, unspecified Plan: Patient is wheelchair dependent. She does have MASTER WELDER services on a daily basis. (5) Recurrent herpes labialis: Code(s): B00.1 - Herpesviral vesicular dermatitis Category: Medical Plan: Will start suppressive therapy Orders: Orders AMB Hemoglobin A1c 06/09/24 Z13.1 - Encounter for screening for diabetes mellitus Referrals Infectious Disease Referral B00.1 - Herpesviral vesicular dermatitis Medications: New walker need for regular walker 1 ea 0RF G80.9 - Cerebral palsy, unspecified trimethoprim 100 mg PO DAILY 90 days 90 tabs 1RF N39.0 - Urinary tract infection, site not specified
[2024-06-09 10:23] VITALS: BP 120/76; PULSE 101; O2SAT 96; BMI 46.8
--- OUTSIDE RECORDS SUMMARY | 2024-06-09 11:46 | XMS_ITS | Data Portability ---
Author Organization [employer] [facility], [place] - [facility] Address [address] [place] [phone] Care Team Providers Care Spring Crater Name Role Phone HIM CCA Referring Provider DARRION BARNES Primary Care Provider Assessment Encounter Date Assessment Date Assessment LastModified by Organization Details LastModified Time 05/10/2024 05/10/2024 I have reviewed and agree with the assessment and plan as documented by the clinical research assistant. I provided real-time medical direction for this [...] functioning. VSS. Exam otherwise unremarkable per the clinical research assistant. BMP reveals K 3.5. Otherwise unremarkable. Impression: [...] BMP, serum or plasma 2024 025 [facility], [address] [place] [address], [phone], 5 16:54:48 Referral None recorded. Procedures None recorded. Surgeries None recorded. Imaging None recorded. Medication Orders potassium chloride ER 20 mEq tablet,ext ended release 2024 025 [id number], [address] [place], [address], 5 16:53:27 ketorolac 30 mg/mL injection solution [...] Not available Not available Not available 12/26/2023 55980 4 RxNorm Not Available [facility] - production 5 13:48:13 6340 Ambien medicatio n Not available Not available Not available 12/26/2023 31064 5 RxNorm Not Available [facility] - production 5 13:48:13 6341 trazodone medicatio n Not available Not available Not available 12/26/2023 34976 RxNorm Not Available [facility] - production 4 [...] Address Organization Details Last Updated DateTime 4 07691.2 8 g 142.24 cm 16 /min 98.1 [degF] 96 /min 96 % 96 % 102 mm[Hg] 69 mm[Hg] Not Available [facility] 4 16:41:38 Date Recorded Oxygen saturation Oxygen saturation in Arterial blood by Pulse oximetry Respiratory rate Body temperature Body weight Heart rate Body height Systolic blood pressure Diastolic blood pressure Provider Name and Address Organization Details Last Updated DateTime 4 95 % 95 % 16 /min 97.2 [degF] 74932.2 8 g 91 /min 142.24 cm 135 mm[Hg] 85 mm[Hg] Not Available [facility] 4 15:57:01 Date Recorded Oxygen saturation Oxygen saturation in Arterial blood by Pulse oximetry Heart rate Body temperature Respiratory rate Body height Body weight Systolic blood pressure Diastolic blood pressure Provider Name and Address Organization Details Last Updated DateTime 4 96 % 96 % 96 /min 97 [degF] 16 /min 142.24 cm 75181.2 8 g 126 mm[Hg] 76 mm[Hg] Not Available [facility] 4 14:10:42 Date Recorded Oxygen saturation Oxygen saturation in Arterial blood by Pulse oximetry Body temperature Respiratory rate Heart rate Systolic blood pressure Diastolic blood pressure Provider Name and Address Organization Details Last Updated DateTime 5 97 % 97 % 98.2 [degF] 17 /min 86 /min 128 mm[Hg] 82 mm[Hg] Not Available [facility] 5 16:32:24 Social History None recorded. Functional Status None recorded. Mental Status None recorded. Family History Nothing Reported. Medical History No medical history recorded. Gynecological HistoryNo gynecological history recorded. Obstetrics History GPAL:G 0 P 0 0 0 0 Past Encounters Encounter ID Performer Location Encounter Start Date Encounter Closed Date Diagnosis/Indication Diagnosis SNOMED-CT Code Diagnosis ICD10 Code Diagnosis Note [id number] Spencer Lacy MD [facility] [address] [place] [phone] 05/08/2023 16:37:50 05/08/2023 21:46:30 Right side sciatica 0944413861 99991 M54.31 Hx of kidney stones but no renal impairment . Amenable to 1x dose of Toradol today. Discussed red flag signs for which to seek higher level of care. [id number] Bao Grant MD [facility] [address] [place] [phone] 06/10/2023 15:56:55 06/11/2023 11:17:03 Arthritis 0137573 M19.90 As noted, we were called to see this patient regarding concerns of bilateral knee arthritis. Evaluation in the field was performed by my clinical research assistant colleague, as noted above, I provided real-time [...] or worsening serious symptoms, particular ly fever. [id number] FERNANDA COHN MD [facility] [address] [place] [phone] 12/26/2023 14:10:39 12/29/2023 08:17:01 Injury of elbow 135156602 S59.901A Evaluation in the field was performed by my clinical research assistant colleague, as noted above, I provided real-time [...] Vital signs are stable.Per discussion with the clinical research assistant, there is swelling of the right elbow [...] decision was made to refer her to [facility] ED via ambulance. -No ketorolac was administer ed, as it can delay healing in the case of a fracture.- An expect called at [facility] ED Primary care, consider__ _ Dispositio n: [facility] [place] [id number] Lakshmi Jarvis MD Main - [facility] [address] [place] [phone] 05/10/2024 16:20:31 05/10/2024 21:46:36 Fatigue 07600613 R53.83 Hypokalemia 06160966 E87 .6 Health Concerns Section Related Observation LastModified by Organization Detai ls LastModified Time None Recorded Concern Status LastModified by Organization Details LastModified Time None Recorded Advance Directives Directive None Recorded Payers Encounter Date Sequence Insurance Name Policy Number Policy Oconnor Covered Member ID Oconnor Member ID Guarantor Name 05/08/2023 1 [facility] - DOS ON OR AFTER 2022 - DUAL ELIGIBLE - [employer] AND ONE CARE (MEDICARE REPLACEMENT/ADV ANTAGE - HMO) Addis Durant [id number] Addis Durant 06/10/2023 1 [facility] - DOS ON OR AFTER 2022 - DUAL ELIGIBLE - [employer] AND ONE CARE (MEDICARE REPLACEMENT/ADV ANTAGE - HMO) Addis Durant [id number] Addis Durant 12/26/2023 1 [facility] - DOS ON OR AFTER 2022 - DUAL ELIGIBLE - [employer] AND ONE CARE (MEDICARE REPLACEMENT/ADV ANTAGE - HMO) Addis Durant [id number] Addis Durant 05/10/2024 1 [facility] - DOS ON OR AFTER 2022 - DUAL ELIGIBLE - [employer] AND ONE CARE (MEDICARE REPLACEMENT/ADV ANTAGE - HMO) Addis Durant [id number] Addis Durant Notes Date Note Type Note [...] Tylenol arthritis for pain. Spencer Lacy MD [address] [place] [address],[address], [place], [phone], [employer] 05/08/2023 17:42:14 06/10/2023 text/html [facility] Nurse Triage Notes (Hallie Vela): Reason For Request: Pt's community organization director reporting mbr is handicap/unable to walk>pain on both knees, almost falls to the ground when attempting to stand and unable to sleep with the pain>going on 2 weeks. Chief Complaints: Pain PMH: Diabetes Allergies: Trazodone Comments: Member is a cayman islander speaking member , that is a 47 yr old female that is handicap and unable to walk at baseline. LOG DECKMAN calling in for new bilateral knee pain . LOG DECKMAN is trying to connect with PCP and is looking for pain management . LOG DECKMAN / member are aware we do not do imaging ...................... ...................... ...................... ...................... ...................... ...................... ......... Banquet Line Cook Note From Jefferson Luna: Pt with CP [...] ......... Disposition: Fulfilled Bao Grant MD [address] [facility],[address], [place], [phone], WALTER VELASQUEZ 06/10/2023 17:06:45 12/26/2023 text/html [facility] Nurse Triage Notes (Hallie Vela): Reason For Request: Pt's LOG DECKMAN Emmie reporting a fall from either yesterday or the day before during the morning hours, community organization director noting right arm pain Chief Complaints: Falls PMH: Diabetes Allergies: Trazodone Comments: The teletypewriter installer verified the member's name//address, and phone number. Member is a 48 yr old female , [place] islander speaking female, a/o3 PMH >DM Allergies >trazadone LOG DECKMAN is called for a pt that fell [...] ...................... ...................... ...................... ...................... ...................... ...................... ......... Banquet Line Cook Note From Bao Nelson: [facility] makes pt contact, 48 yo F CC of a fall two days ago.[facility] obtains vital signs. PT explains she [...] walker. PT allergies confirmed, trazadone, ambien, zomig. [facility] contacts [facility]. [facility] advises we can treat acute pain with toradol although she is concerned that it could be fractured. PT is NOT given toradol due to be transported to the hospital via ambulance. [facility] stressed to PT that she needs imaging as soon as possible, to be placed in a sling, and have a orthopedic determine the best treatment plan. PT is advised to either go to the ED for imaging and assessment or go to an urgent care. PT has limited ability to go to urgent care. IT is decided among pt, [facility], and [facility] that an ambulance would best suit her needs and have the elbow examined at the hospital. After some discussion pt agrees. [facility] contacts [facility] via 911 for transport to [facility] per pt request. [facility] waits for EMS and assists EMS with pt extrication. [facility] clears. ...................... ...................... ...................... ...................... ...................... ...................... ......... Disposition: [facility] FERNANDA COHN MD [address] [place] [address],[address], [place], [phone], [employer] 12/26/2023 18:02:37 05/10/2024 text/html [facility] Nurse Triage Notes (Susana Murguia - RN): Reason For Request: Pt's LOG DECKMAN Emmie reporting weakness, dizziness, headache going on [...] 05/10/2024: Allergies Reviewed at 05/10/2024:48 Comments: Patients LOG DECKMAN calling in to place a referral, patient identified via name and . LOG DECKMAN and patient a poor historian of PMH, [...] fever/chills. Patient would like to be evaluated. Banquet Line Cook Organization Information for Lamonte Owens [employer] Name: [employer] Address: [address] [place] [address], Dural Mechanic: Keyon Wise MD CLIA No.: [id number] Banquet Line Cook POC Test Results from Lamonte Owens iSTAT Chem8+ (16:50:32) Na: 139 mEq/L K: 3.5 mEq/L Cl: 103 mEq/L iCa: 1.17 mmol/L TCO2: 24 mmol/L Glu: 136 mg/dL BUN: 13 mg/dL Crea: 0.7 mg/dL Hct: 37 % Hb: 12.6 g/dL A ...................... ...................... ...................... ...................... ...................... ...................... ......... Banquet Line Cook Note From Lamonte Owens: Dispatch to the [...] ...................... ...................... ...................... ...................... ...................... ...................... ......... [facility] Consulted: Lakshmi Jarvis ...................... ...................... ...................... ...................... ...................... ...................... ......... Disposition: Fulfilled Lakshmi Jarvis MD [address] [facility],[address], [place], [address], [employer] 05/10/2024 18:07:06 OBGyn Episode No OBEpisode recorded.
--- OUTSIDE RECORDS SUMMARY | 2024-06-09 11:46 | XMS_ITS | Clinical Summary ---
Author Organization [facility] Address [address] [place] [address] Phone Care Team Providers Care Tandem Operator Name Role Phone Deonte Carmona Primary Care Provider [phone] Allergies Active Allergy Reactions Criticality Noted Date [...] by mouth 2 (two) times a day. 6 Active famotidine (PEPCID) 40 mg tablet Take [...] by mouth 1 (one) time each day. 9 Active QUEtiapine (SEROquel) 200 mg tablet Take 1 tablet (200 mg total) by mouth at bedtime. Active tiZANidine (ZANAFLEX) 4 mg tablet Take 1 tablet (4 mg total) by mouth 2 (two) times a day if needed for muscle spasms. 5 Active traMADoL (ULTRAM) 50 mg tablet Take 1 tablet (50 mg total) by mouth 2 (two) times a day if needed (breakthroug h pain). 6 Active valACYclovir (VALTREX) 500 mg tablet Take 1 tablet (500 mg total) by mouth 1 (one) time each day. 4 Active venlafaxine XR (EFFEXOR-XR) 150 mg 24 hr capsule Take 1 capsule (150 mg total) by mouth 1 (one) time each day. 6 Active zaleplon (SONATA) 5 mg capsule Take 1 capsule (5 mg total) by mouth at bedtime. 9 Active ondansetron ODT (ZOFRAN-ODT) 4 mg disintegrating tablet Dissolve 1 tablet (4 mg total) on top of the tongue every 8 (eight) hours if needed for nausea or vomiting for up to 7 days. 15 tablet 5 05/12/19 25 polyethylene glycol (MIRALAX) 17 gram packet Take 17 g by mouth 1 (one) time each day for 10 days. 10 packet 5 05/16/19 25 cefdinir (OMNICEF) 300 mg capsule Take 1 capsule (300 mg total) by mouth 2 (two) times a day for 10 days. 20 each 5 05/15/19 25 Active Problems Problem Noted Date Diagnosed Date Pyelonephritis 05/05/2024 Bacteremia 05/05/2024 Acute cystitis without hematuria 05/01/2024 Encounters Date Type Department Care Team Description 05/01/2024 4:39 PM EST - 05/05/2024 1:37 PM EST Hospital Encounter [facility] [address] [place] [id number] Lencho Hernandez MD Jones, Christopher, MD Kela, Kashyap Devendrabhai, MD Acute cystitis without hematuria (Primary Dx); Acute urinary retention; SIRS due to infectious process with acute organ dysfunction (CMS/HCC) Discharge Disposition: Home-Health Care Svc from Last 3 Months Surgical History Surgery Date Site/Laterality Comments APPENDECTOMY OTHER SURGICAL HISTORY Transsphenoidal hypophysectomy OTHER SURGICAL HISTORY Multiple surgeries at [facility] related to cerebral palsy Medical History Medical [...] of3 resultswithin the time period is included. Glucose POCT 104(H) 70 - 100 mg/dL 05/05/2024 6:09 AM EST [facility] Blood Capillary blood specimen / Unknown 05/05/2024 6:09 AM EST 05/05/2024 6:10 AM EST Moses Whyte MD LAB POINT O F CARE TEST DOCKED DEVICE UNSOLICITED RESULTS Final Result [facility] [place] [facility] [address] [place] [address], * CT Abdomen Pelvis w Contrast (05/03/2024 [...] Signed Date: 05/03/2024 15:24 ET Workstation ID: [id number] Transcribed By: Self Edit Transcribed Date: 05/03/2024 [...] Signed Date: 05/03/2024 15:24 ET Workstation ID: [id number] Transcribed By: Self Edit Transcribed Date: 05/03/2024 15:13 ET Moses Whyte MD IMAman CT PROCEDURES F inal Result * (ABNORMAL) Complete blood count (05/03/2024 6:05 AM EST) [facility] WBC 7.2 4.8 - 10.8 K/mcL LAB HEMETOLOGY METHOD 05/03/2024 7:13 AM [facility] RBC 3.20(L) 3.80 - 4.80 M/mcL LAB HEMETOLOGY METHOD 05/03/2024 7:13 AM [facility] Hemoglobin 10.5(L) 11.5 - 16.0 g/dL LAB HEMETOLOGY METHOD 05/03/2024 7:13 AM [facility] Hematocrit 31.9(L) 35.0 - 47.0 % LAB HEMETOLOGY METHOD 05/03/2024 7:13 AM [facility] MCV 99.4(H) 79.0 - 98.0 FL LAB HEMETOLOGY METHOD 05/03/2024 7:13 AM [facility] MCH 32.7(H) 27.0 - 32.0 pcg LAB HEMETOLOGY METHOD 05/03/2024 7:13 AM [facility] MCHC 32.9 32.0 - 37.0 g/dL LAB HEMETOLOGY METHOD 05/03/2024 7:13 AM [facility] RDW 13.9 11.0 - 15.0 % LAB HEMETOLOGY METHOD 05/03/2024 7:13 AM [facility] Platelets 186 130 - 400 K/mcL LAB HEMETOLOGY METHOD 05/03/2024 7:13 AM [facility] MPV 10.8 7.0 - 11.0 FL LAB HEMETOLOGY METHOD 05/03/2024 7:13 AM [facility] NRBC 0.0 <1.0 % LAB HEMETOLOGY METHOD 05/03/2024 7:13 AM [facility] NRBC Absolute 0.00 <0.10 K/mcL LAB HEMETOLOGY METHOD 05/03/2024 7:13 AM EST [facility] Blood Venous blood specimen / Unknown Venipuncture / Unknown 05/03/2024 6:05 AM EST 05/03/2024 6:47 AM EST us Moses Whyte MD LAB BLOOD ORDERABLE S Final Result Performing Organization Address City/[facility]/ZIP Co de Phone Number [facility] [address] [place] [address], [place] [phone] * (ABNORMAL) Phosphorus (05/03/2024 6:05 AM EST) Phosphorus 2.2(L) 2.5 - 4.5 mg/dL LAB CHEMISTRY METHOD 05/03/2024 7:27 AM EST [facility] Blood Venous blood specimen / Unknown Venipuncture / Unknown 05/03/2024 6:05 AM EST 05/03/2024 6:48 AM EST us Moses Whyte MD LAB BLOOD ORDERABLE S Final Result Performing Organization Address [facility] Co de Phone Number [facility] [address] [place] [address], [place] [phone] * Magnesium (05/03/2024 6:05 AM EST) Only the most recent of3 resultswithin the time period is included. Magnesium 1.9 1.9 - 2.6 mg/dL LAB CHEMISTRY METHOD 05/03/2024 7:27 AM EST [facility] Blood Venous blood specimen / Unknown Venipuncture / Unknown 05/03/2024 6:05 AM EST 05/03/2024 6:48 AM EST us Moses Whyte MD LAB BLOOD ORDERABLE S Final Result [facility] [address] [place] [address], * (ABNORMAL) Basic metabolic panel (05/03/2024 6:05 AM EST) Only the most recent of3 resultswithin the time period is included. Sodium 135 133 - 145 mmol/L LAB CHEMISTRY METHOD 05/03/2024 7:27 AM [facility] Potassium 3.7 3.5 - 5.5 mmol/L LAB CHEMISTRY METHOD 05/03/2024 7:27 AM [facility] Chloride 103 96 - 110 mmol/L LAB CHEMISTRY METHOD 05/03/2024 7:27 AM [facility] CO2 25 21 - 32 mmol/L LAB CHEMISTRY METHOD 05/03/2024 7:27 AM [facility] Anion Gap 7 3 - 11 LAB CHEMISTRY METHOD 05/03/2024 7:27 AM [facility] Glucose 107(H) 70 - 100 mg/dL LAB CHEMISTRY METHOD 05/03/2024 7:27 AM [facility] BUN 17 5 - 25 mg/dL LAB CHEMISTRY METHOD 05/03/2024 7:27 AM [facility] Creatinine 0.99 0.50 - 1.10 mg/dL LAB CHEMISTRY METHOD 05/03/2024 7:27 AM [facility] eGFR 70 >=60 mL/min/1. 73m2 LAB CHEMISTRY METHOD 05/03/2024 7:27 AM [facility] Comment:Calculation based on the??Chronic Kidney Disease Epidemiology Collaboration (CKD-EPI) equation refit??without adjustment for race. BUN/Creatinine Ratio 17.2 LAB CHEMISTRY METHOD 05/03/2024 7:27 AM [facility] Calcium 8.8 8.5 - 10.5 mg/dL LAB CHEMISTRY METHOD 05/03/2024 7:27 AM [facility] Blood Venous blood specimen / Unknown Venipuncture / Unknown 05/03/2024 6:05 AM EST 05/03/2024 6:48 AM EST Moses Whyte MD LAB BLOOD ORDERABLE S Final Result [facility] [address] [place] [address], [place] [phone] * (ABNORMAL) CBC auto differential (05/02/2024 6:24 AM EST) Only the most recent of2 resultswithin the time period is included. WBC 16.5(H) 4.8 - 10.8 K/mcL LAB HEMETOLOGY METHOD 05/02/2024 7:33 AM [facility] RBC 3.20(L) 3.80 - 4.80 M/mcL LAB HEMETOLOGY METHOD 05/02/2024 7:33 AM [facility] Hemoglobin 10.7(L) 11.5 - 16.0 g/dL LAB HEMETOLOGY METHOD 05/02/2024 7:33 AM [facility] Hematocrit 32.0(L) 35.0 - 47.0 % LAB HEMETOLOGY METHOD 05/02/2024 7:33 AM [facility] MCV 99.1(H) 79.0 - 98.0 FL LAB HEMETOLOGY METHOD 05/02/2024 7:33 AM [facility] MCH 33.1(H) 27.0 - 32.0 pcg LAB HEMETOLOGY METHOD 05/02/2024 7:33 AM [facility] MCHC 33.4 32.0 - 37.0 g/dL LAB HEMETOLOGY METHOD 05/02/2024 7:33 AM [facility] RDW 14.1 11.0 - 15.0 % LAB HEMETOLOGY METHOD 05/02/2024 7:33 AM [facility] Platelets 202 130 - 400 K/mcL LAB HEMETOLOGY METHOD 05/02/2024 7:33 AM [facility] MPV 10.4 7.0 - 11.0 FL LAB HEMETOLOGY METHOD 05/02/2024 7:33 AM [facility] NRBC 0.0 <1.0 % LAB HEMETOLOGY METHOD 05/02/2024 7:33 AM [facility] NRBC Absolute 0.00 <0.10 K/mcL LAB HEMETOLOGY METHOD 05/02/2024 7:33 AM [facility] Neutrophils Relative 86.7 % LAB HEMETOLOGY METHOD 05/02/2024 7:33 AM [facility] Lymphocytes Relative 3.8 % LAB HEMETOLOGY METHOD 05/02/2024 7:33 AM [facility] Monocytes Relative 8.5 % LAB HEMETOLOGY METHOD 05/02/2024 7:33 AM [facility] Eosinophils Relative 0.2 % LAB HEMETOLOGY METHOD 05/02/2024 7:33 AM [facility] Basophils Relative 0.3 % LAB HEMETOLOGY METHOD 05/02/2024 7:33 AM [facility] Immature Granulocytes Relative 0.5 % LAB HEMETOLOGY METHOD 05/02/2024 7:33 AM [facility] Neutrophils Absolute 14.28(H) 1.50 - 7.00 K/mcL LAB HEMETOLOGY METHOD 05/02/2024 7:33 AM [facility] Lymphocytes Absolute 0.63(L) 1.00 - 5.00 K/mcL LAB HEMETOLOGY METHOD 05/02/2024 7:33 AM [facility] Monocytes Absolute 1.40(H) 0.20 - 1.00 K/mcL LAB HEMETOLOGY METHOD 05/02/2024 7:33 AM EST [facility] Eosinophils Absolute 0.03 0.00 - 0.50 K/[facility] LAB HEMETOLOGY METHOD 05/02/2024 7:33 AM EST [facility] Basophils Absolute 0.05 0.00 - 0.20 K/[facility] LAB HEMETOLOGY METHOD 05/02/2024 7:33 AM EST [facility] Immature Granulocytes Absolute 0.09(H) 0.00 - 0.03 K/[facility] LAB HEMETOLOGY METHOD 05/02/2024 7:33 AM EST [facility] Blood Venous blood specimen / Unknown Venipuncture / Unknown 05/02/2024 6:24 AM EST 05/02/2024 6:35 AM EST us Ezequiel Reeves MD LAB BLOOD ORDERABLES Final Result [facility] [address] [place] [address], * (ABNORMAL) Blood Culture, Peripheral Draw #1 (05/01/2024 10:35 PM EST) Only the most recent of2 resultswithin the time period is included. Culture, Blood Klebsiella pneumoniae ssp pneumoniae(AA) NATALIA 05/04/2024 8:49 AM EST [facility] Comment: The organism value for this result has been updated. These results have been appended to the previously preliminary verified report. This is an edited result. Previous organism was Gram negative bacilli on 05/03/2024 at 1014 EST. Gram Stain Result Anaerobic bottle Gram negative bacilli(AA) 05/04/2024 8:49 AM EST [facility] Comment:This is an appended report. These results have been appended to a previously preliminary verified report. Blood Venous blood specimen / Unknown Venipuncture / Unknown 05/01/2024 10:35 PM EST 05/01/2024 10:51 PM EST Narrative [facility] - 05/04/2024 8:49 AM EST FOR SUSCEPTIBILITIES, REFER TO PREVIOUS CULTURE FROM 05/01/24 at 2231. us Lencho Hernandez MD LAB MICROBIOLOGY - GENERAL ORD ERABLES Final Result Performing Organization Address [facility]/ZIP Co de Phone Number [facility] [address] [place] [address], [place] [phone] * (ABNORMAL) Blood culture pathogens molecular study (05/01/2024 10:31 PM EST) [facility] Klebsiella pneumoniae group Detected (A) Not Detected LAB MICROBIOLOGY METHOD 05/02/2024 1:14 PM EST [facility] Blood Venous blood specimen / Unknown Venipuncture / Unknown 05/01/2024 10:31 PM EST 05/01/2024 10:51 PM EST Lencho Hernandez MD LAB MICROBIOLOGY - GENERAL ORD ERABLES Final Result Performing Organization Address [facility]/ZIP Co de Phone Number [facility] [address] [place] [address], [place] [phone] * (ABNORMAL) Urine culture (05/01/2024 9:04 PM EST) [facility] Culture, Urine >100,000 CFU/mL Klebsiella pneumoniae ssp pneumoniae(A) NATALIA 05/04/2024 7:37 AM EST [facility] Comment: This is an [...] MICROBIOLOGY - GENERAL ORD ERABLES Final Result [facility] [address] [place] [address], [place] [phone] * (ABNORMAL) Urinalysis with reflex microscopic (05/01/2024 8:52 PM EST) Specific [place] Urine 1.015 1.003 - 1.030 LAB URINALYSIS - AUTOMATED METHOD 05/01/2024 9:35 PM EST [facility] pH, Urine 6.0 5.0 - 8.0 pH LAB URINALYSIS - AUTOMATED METHOD 05/01/2024 9:35 PM [facility] Leukocytes, Urine Large(A) Negative LAB URINALYSIS - AUTOMATED METHOD 05/01/2024 9:35 PM [facility] Nitrite, Urine Positive(A) Negative LAB URINALYSIS - AUTOMATED METHOD 05/01/2024 9:35 PM [facility] Protein, Urine 100(A) <=Trace mg/dL LAB URINALYSIS - AUTOMATED METHOD 05/01/2024 9:35 PM EST [facility] Glucose, Urine Negative Negative mg/dL LAB URINALYSIS - AUTOMATED METHOD 05/01/2024 9:35 PM [facility] Ketones, Urine Negative Negative mg/dL LAB URINALYSIS - AUTOMATED METHOD 05/01/2024 9:35 PM [facility] Urobilinogen , Urine 0.2 0.2 - 1.0 mg/dL LAB URINALYSIS - AUTOMATED METHOD 05/01/2024 9:35 PM [facility] Bilirubin, Urine Negative Negative LAB URINALYSIS - AUTOMATED METHOD 05/01/2024 9:35 PM [facility] Blood, Urine Large(A) Negative LAB URINALYSIS - AUTOMATED METHOD 05/01/2024 9:35 PM [facility] RBC, Urine 15.0(H) 0 - 4 /HPF LAB URINALYSIS - AUTOMATED METHOD 05/01/2024 9:35 PM [facility] WBC, Urine 1,157.7(H) 0 - 4 /HPF LAB URINALYSIS - AUTOMATED METHOD 05/01/2024 9:35 PM [facility] Squamous Epithelial, Urine 8 0 - 60 /LPF LAB URINALYSIS - AUTOMATED METHOD 05/01/2024 9:35 PM [facility] Bacteria, Urine Many(A) Negative /HPF LAB URINALYSIS - AUTOMATED METHOD 05/01/2024 9:35 PM [facility] Hyaline Casts, Urine 0.0 0 - 3 /LPF LAB URINALYSIS - AUTOMATED METHOD 05/01/2024 9:35 PM [facility] Urine Urine specimen obtained by clean catch procedure / Unknown Non-blood Collection / Unknown 05/01/2024 8:52 PM EST 05/01/2024 9:14 PM EST us Lencho Hernandez MD LAB URINE ORDERABLES Final Res ult [facility] [address] [place] [address], * XR Chest 2 Views (05/01/2024 7:34 PM EST) Anatomical Region Laterality Modality Body Radiographic Aniyah ging 05/02/2024 9:30 AM EST Impressions 05/02/2024 9:34 AM EST Hypoventilatory exam. ??No acute findings. -------- FINAL REPORT -------- Dictated By: Stefan Ambriz Dictated Date: 05/02/2024 09:30 ET Assigned Physician: Stefan Ambriz Reviewed and Electronically Signed By: Stefan Ambriz Signed Date: 05/02/2024 09:34 ET Workstation ID: [id number] Transcribed By: Self Edit Transcribed Date: 05/02/2024 [...] Signed Date: 05/02/2024 09:34 ET Workstation ID: [id number] Transcribed By: Self Edit Transcribed Date: 05/02/2024 09:30 ET Lencho Hernandez MD IMG XR PROCEDURES Final Result * Respiratory virus panel molecular study (05/01/2024 5:44 PM EST) Adenovirus Detection by PCR Not Detected Not Detected LAB MICROBIOLOGY METHOD 05/01/2024 6:55 PM EST [facility] Influenza A PCR Not Detected Not Detected LAB MICROBIOLOGY METHOD 05/01/2024 6:55 PM EST [facility] Influenza B PCR Not Detected Not Detected LAB MICROBIOLOGY METHOD 05/01/2024 6:55 PM EST [facility] Coronavirus 229E Not Detected Not Detected LAB MICROBIOLOGY METHOD 05/01/2024 6:55 PM [facility] Coronavirus HKU1 Not Detected Not Detected LAB MICROBIOLOGY METHOD 05/01/2024 6:55 PM [facility] Coronavirus OC43 Not Detected Not Detected LAB MICROBIOLOGY METHOD 05/01/2024 6:55 PM [facility] Coronavirus NL63 Not Detected Not Detected LAB MICROBIOLOGY METHOD 05/01/2024 6:55 PM [facility] Parainfluenza Virus 1 Not Detected Not Detected LAB MICROBIOLOGY METHOD 05/01/2024 6:55 PM [facility] Parainfluenza Virus 2 Not Detected Not Detected LAB MICROBIOLOGY METHOD 05/01/2024 6:55 PM [facility] Parainfluenza Virus 3 Not Detected Not Detected LAB MICROBIOLOGY METHOD 05/01/2024 6:55 PM [facility] Parainfluenza Virus 4 Not Detected Not Detected LAB MICROBIOLOGY METHOD 05/01/2024 6:55 PM EST [facility] RSV PCR Not Detected Not Detected LAB MICROBIOLOGY METHOD 05/01/2024 6:55 PM [facility] Human Metapneumovirus A and B Not Detected Not Detected LAB MICROBIOLOGY METHOD 05/01/2024 6:55 PM EST [facility] Rhinovirus/Entero virus Not Detected Not Detected LAB MICROBIOLOGY METHOD 05/01/2024 6:55 PM EST [facility] Bordetella pertussis Not Detected Not Detected LAB MICROBIOLOGY METHOD 05/01/2024 6:55 PM EST [facility] Bordetella parapertussis Not Detected Not Detected LAB MICROBIOLOGY METHOD 05/01/2024 6:55 PM EST [facility] Mycoplasma pneumo by PCR Not Detected Not Detected LAB MICROBIOLOGY METHOD 05/01/2024 6:55 PM EST [facility] Chlamydia pneumoniae Not Detected Not Detected LAB MICROBIOLOGY METHOD 05/01/2024 6:55 PM EST [facility] SARS COV-2 Not Detected Not Detected LAB MICROBIOLOGY METHOD 05/01/2024 6:55 PM EST [facility] Swab Both anterior nares / Unknown Non-blood Collection / Unknown 05/01/2024 5:44 PM EST 05/01/2024 5:57 PM EST [facility] - 05/01/2024 6:55 PM EST Testing was performed using the [employer] Respiratory Pathogen PCR Assay. All results must [...] MICROBIOLOGY - GENERAL ORD ERABLES Final Result [facility] [address] [place] [address], * Troponin I high sensitivity (05/01/2024 5:42 PM EST) [facility] High Sensitivity Troponin I 4 <=54 ng/L LAB CHEMISTRY METHOD 05/01/2024 6:27 PM EST [facility] Blood Venous blood specimen / Unknown Venipuncture / Unknown 05/01/2024 5:42 PM EST 05/01/2024 5:57 PM EST Narrative [facility] - 05/01/2024 6:27 PM EST High levels of biotin in samples may falsely decrease hsTroponin values. ??Use caution when interpreting hsTroponin results in patients taking biotin who exhibit renal impairment (eGFR <60) or in patients taking more than 20 mg/day of biotin. us Lencho Hernandez MD LAB BLOOD ORDERABLES Final Res ult Performing Organization Address [facility]/ZIP Co de Phone Number [facility] [address] [place] [address], [place] [phone] * Thyroid stimulating hormone with reflex to free t4 and free t3 (TSH Reflex) (05/01/2024 5:42 PM EST) TSH 0.84 0.40 - 4.00 mcIU/mL LAB CHEMISTRY METHOD 05/01/2024 6:35 PM EST [facility] Blood Venous blood specimen / Unknown Venipuncture / Unknown 05/01/2024 5:42 PM EST 05/01/2024 5:57 PM EST Lencho Hernandez MD LAB BLOOD ORDERABLES Final Res ult Performing Organization Address [facility]/ZIP Co de Phone Number [facility] [address] [place] [address], [place] [phone] * (ABNORMAL) Hepatic function panel (05/01/2024 5:42 PM EST) Total Protein 6.4 6.0 - 8.0 g/dL LAB CHEMISTRY METHOD 05/01/2024 6:27 PM EST [facility] Albumin 3.4 3.2 - 5.0 g/dL LAB CHEMISTRY METHOD 05/01/2024 6:27 PM EST [facility] Total Bilirubin 1.3 0.0 - 1.4 mg/dL LAB CHEMISTRY METHOD 05/01/2024 6:27 PM EST [facility] Bilirubin, Direct 0.6(H) 0.0 - 0.3 mg/dL LAB CHEMISTRY METHOD 05/01/2024 6:27 PM EST [facility] Bilirubin, Indirect 0.7 0.0 - 1.1 mg/dL LAB CHEMISTRY METHOD 05/01/2024 6:27 PM EST [facility] ALT (SGPT) 53 10 - 60 unit/L LAB CHEMISTRY METHOD 05/01/2024 6:27 PM EST [facility] AST (SGOT) 37 10 - 42 unit/L LAB CHEMISTRY METHOD 05/01/2024 6:27 PM EST [facility] Alkaline Phosphatase 118 42 - 121 unit/L LAB CHEMISTRY METHOD 05/01/2024 6:27 PM EST [facility] Blood Venous blood specimen / Unknown Venipuncture / Unknown 05/01/2024 5:42 PM EST 05/01/2024 5:57 PM EST us Lencho Hernandez MD LAB BLOOD ORDERABLES Final Res ult [facility] [address] [place] [address], * ECG 12 lead (05/01/2024 5:33 PM EST) Ventricular Rate ECG 110 BPM GEMUSE Atrial Rate 110 BPM GEMUSE P-R Interval 128 ms GEMUSE QRS Duration 74 ms GEMUSE Q-T Interval 342 ms GEMUSE QTc 462 ms GEMUSE P Wave Erin 54 degrees GEMUSE R Erin 25 degrees GEMUSE T Erin 12 degrees GEMUSE ECG Interpretation Sinus tachycardia [...] Final Result from Last [address] [place] [address] [id number] [place] [address] MEDICARE Member Subscriber Plan / Payer (Ef fective 2017-Present) Name:Addis Durant Relation to Subscriber:Self Name:Addis Durant Payer ID:[id number] Group ID:[id number] Type:Not on file Address: [place] [facility] [place] [phone] Advance Directives Documents on File Type Date Recorded 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
--- OUTSIDE RECORDS SUMMARY | 2024-06-09 11:46 | XMS_ITS | Continuity of Care Document ---
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 I provided real-time medical direction for this [...] functioning. VSS. Exam otherwise unremarkable per the hat presser. BMP reveals K 3.5. Otherwise unremarkable. Impression: [...] BMP, serum or plasma 2024 025 [facility], [address] [place] [address], [phone], 5 16:54:48 Referral None recorded. Procedures None recorded. Surgeries None recorded. Imaging None recorded. Medication Orders potassium chloride ER 20 mEq tablet,ext ended release [address] [place] [address]/Pharmacy #[id number], [address] [place], [address], 5 16:53:27 Patient TargetsNo targets recorded. Patient [...] Not available Not available Not available 12/26/2023 [id number] RxNorm Not Available [facility] - production 5 13:48:13 6340 Ambien medicatio n Not available Not available Not available 12/26/2023 [id number] 5 RxNorm Not Available [facility] - production 5 13:48:13 6341 trazodone medicatio n Not available Not available Not available 12/26/2023 52529 RxNorm Not Available [facility] - production 4 [...] SNOMED-CT Code Diagnosis ICD10 Code Diagnosis Note [id number] Lakshmi Jarvis MD Main - [facility] [address] [place] [phone] 05/10/2024 16:20:31 05/10/2024 21:46:36 Fatigue 23916297 R53.83 Hypokalemia [id number] E87 .6 Health Concerns Section Related Observation LastModified by Organization Detai ls LastModified Time None Recorded Concern Status LastModified by Organization Details LastModified Time None Recorded Payers Encounter Date Sequence Insurance Name Policy Number Policy Oconnor Covered Member ID Oconnor Member ID Guarantor Name 05/10/2024 1 [facility] - DOS ON OR AFTER 2022 - DUAL ELIGIBLE - ASSISTED OPTIONS AND ONE CARE (MEDICARE REPLACEMENT/ADV ANTAGE - HMO) Addis Durant [id number] Addis Durant Notes Date Note Type Note Provider Name and Address Organization Details Recorded Time 05/10/2024 text/html [facility] Nurse Triage Notes (Susana Murguia - RN): Reason For Request: 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 ELECTRICAL ENGINEER and patient a poor historian of PM, [...] fever/chills. Patient would like to be evaluated. Web Content Producer Organization Information for Lamonte Owens [employer] Legal Name: [employer]? Address: [address] [place] [address], Job Interviewer: Keyon Wise MD CLIA No.: [id number] Web Content Producer POC Test Results from Lamonte Owens iSTAT Chem8+ (16:50:32) Na: 139 mEq/L K: 3.5 mEq/L Cl: 103 mEq/L iCa: 1.17 mmol/L TCO2: 24 mmol/L Glu: 136 mg/dL BUN: 13 mg/dL Crea: 0.7 mg/dL Hct: 37 % Hb: 12.6 g/dL A ...................... ...................... ...................... ...................... ...................... ...................... ......... Web Content Producer Note From Lamonte Owens: Dispatch to the [...] ...................... ...................... ...................... ...................... ...................... ...................... ......... [facility] Consulted: Lakshmi Jarvis ...................... ...................... ...................... ...................... ...................... ...................... ......... Disposition: Norma Jarvis MD [address] [facility],[address], [place], [address], [employer] 05/10/2024 18:07:06 OBGyn Episode No OBEpisode recorded.
== END 2024-06-09 11:12 | disposition home or self-care (01) ==
LOC: HO.HMCH 10:16
PROVIDERS: PCP Physician Assistant; Visit Provider Physician Assistant
DX: N39.0 Urinary tract infection, site not specified (principal); E78.2 Mixed hyperlipidemia; E03.9 Hypothyroidism, unspecified; G80.9 Cerebral palsy, unspecified; B00.1 Herpesviral vesicular dermatitis

== ENCOUNTER → 2024-06-09 10:15 | Outpatient (BNVA) | payer OTHER, SELFPAY | PROVIDERS: PCP Physician Assistant; Visit Provider Physician Assistant | DX: N39.0 Urinary tract infection, site not specified (principal); E78.2 Mixed hyperlipidemia; E03.9 Hypothyroidism, unspecified; G80.9 Cerebral palsy, unspecified; B00.1 Herpesviral vesicular dermatitis; Z13.1 Encounter for screening for diabetes mellitus | CPT/HCPCS: 83036; 99212 ==

== ENCOUNTER 2024-06-14 14:21 | Outpatient (AMB) | payer OTHER, SELFPAY ==
[2024-06-14 14:48] VITALS: BP 136/70; PULSE 128; O2SAT 96
--- NOTE | 2024-06-14 14:48 | MHC.OFFVIS ---
Vital Signs 06/14/24 14:48 BP 136/70 Pulse 128 H Pulse Oximetry (%) 96 Intake Visit Reasons: /reff herpes Allergies trazodone Allergy (Unknown, Verified 06/14/24 14:51) hives zolmitriptan [Zomig] Allergy (Unknown, Verified 06/14/24 14:51) hives zolpidem [Ambien] Allergy (Unknown, Verified 06/14/24 14:51) hives HPI HPI /reff herpes: Details: She reports being sent for evaluation of vaginal herpes and itching. She has been on Valtrex with no improvement. SHe has no ill partners and no HIV risk. [facility] Medical History Pyelonephritis Herpes simplex Depression Anxiety Diabetes insipidus Cerebral palsy Surgical History History of surgery on lower extremity Hx of appendectomy Family History Father No problems noted. Mother No problems noted. Social History Housing: Apartment Alcohol intake: never Patient Tobacco Use Status: Never used Tobacco e-Cigarette/Vaping Use: Never Used Second Hand Smoke Exposure: No service: No Current occupational status: disabled Current occupational exposures/hazards: No Cognitive needs: Yes (wheel chair ) Hearing needs: No Vision needs: Yes Review of Systems Const All systems reviewed & are unremarkable except as noted in HPI and below Physical Exam Vital Signs: Last Vital Signs Pulse 128 H 06/14/24 14:48 BP 136/70 06/14/24 14:48 Pulse Ox 96 06/14/24 14:48 Const General: cooperative Orientation/consciousness: patient oriented x3 HEENT Head: Yes normal to inspection Mouth: Normal oral and palatal mucosa present Eyes General: appearance normal, both eyes and all related structures Pupils: Equal, round and reactive pupils present Resp Effort & Inspection: normal respiratory effort Cardio Rate: regular rate Rhythm: regular rhythm GI Palpation (GI): Soft to palpation and nontender General: Yes no CVA tenderness Back/Spine/Pelvis Back: no CVA tenderness Skin General skin exam: no rashes or lesions noted Neuro General: patient oriented x3 Cranial nerves: Yes CN's II-XII intact bilaterally and Yes Equal, round and reactive pupils present Extrem General: Yes normal to inspection Psych Appearance: grossly normal Assessment & Plan Assessment & Plan (1) Recurrent herpes labialis: Code(s): B00.1 - Herpesviral vesicular dermatitis Category: Medical Plan Valtrex is appropriate treatment for herpes simplex either oral or labial,type 1 or 2 Would continue give on as need basis Would have patient see Senior Application Programmer for any vaginal lesions/complaints Medications: New fluconazole (Diflucan) 100 mg PO ONCE 1 tab 0RF 1 day Coding Level of Care Code New Pt Level 3 (66644) Diagnoses Recurrent herpes labialis B00.1
== END 2024-06-14 15:15 | disposition home or self-care (01) ==
LOC: HO.HID 14:22
PROVIDERS: PCP Physician Assistant; Visit Provider Internal Medicine
DX: B00.1 Herpesviral vesicular dermatitis (principal)
CPT/HCPCS: 99203

== ENCOUNTER → 2024-06-14 14:21 | Outpatient (BNVA) | payer OTHER, SELFPAY | PROVIDERS: PCP Physician Assistant; Visit Provider Internal Medicine | DX: B00.1 Herpesviral vesicular dermatitis (principal); Z99.3 Dependence on wheelchair | CPT/HCPCS: 99202 ==

== ENCOUNTER 2024-06-24 13:17 | Outpatient (AMB) | payer OTHER, SELFPAY ==
--- NOTE | 2024-06-24 13:18 | A.OFFVIS_ITS ---
Vital Signs 06/24/24 13:24 Height 4 ft 8 in Weight 208 lb BMI 46.6 BP 124/63 Blood Pressure Location Rt brachial Position Sitting Pulse 101 H Intake Visit Reasons: colonoscopy screening Intake Note: Patient here for colonoscopy screening. Colonoscopy 2018. Reports previous colonoscopy was WNL. Patient c/o: no concerns. Normal BM. Chain Saw Mechanic Required: No Accompanied by: Emmie DESTINATION COORDINATOR Allergies trazodone Allergy (Unknown, Verified 06/24/24 13:25) hives zolmitriptan [Zomig] Allergy (Unknown, Verified 06/24/24 13:25) hives zolpidem [Ambien] Allergy (Unknown, Verified 06/24/24 13:25) hives Medication List - Last Reconciled 06/24/24 by Vasile Robles MD acetaminophen ER 1,300 mg (2 x 650 mg) PO Q12H PRN 90 days [adult pull ups As directed] atorvastatin 40 mg PO DAILY bisacodyl 10 mg CO DAILY PRN exqekiamqc-gjeczqdjkivhg-imww 50-325-40 mg 1 tab PO Q6H PRN cholecalciferol (vitamin D3) (Vitamin D3) 50 mcg PO DAILY desmopressin 0.1 mg PO BID 90 days [disposable bedpads As directed] disposable gloves As directed disposable gloves As directed docusate sodium (Colace) 100 mg PO BID 30 days doxepin 75 mg PO BID [Drop arm bed side commode As directed] famotidine 40 mg PO BEDTIME ferrous sulfate 325 mg PO DAILY 90 days fluconazole (Diflucan) 100 mg PO ONCE 1 day Gait belt As directed incontinence pad, liner, disp As directed [incontinence wipes As directed] [incontinence wipes As directed] levothyroxine 75 mcg PO 6XW lidocaine 5% (Lidoderm) 1 patch topical DAILY meclizine 25 mg PO DAILY PRN 14 days methylcellulose (laxative) (Fiber Therapy (methylcellulose)) 500 mg PO TID miconazole nitrate (Monistat 3) 1 appful vaginal BEDTIME 3 days mirabegron ER (Myrbetriq) 25 mg PO DAILY miscellaneous medical supply 1 ea miscellaneous BID 90 days miscellaneous medical supply 1 ea miscellaneous DAILY 99 days naproxen 500 mg PO BID 15 days omeprazole 40 mg PO DAILY pregabalin 200 mg PO BID 30 days quetiapine 50 mg PO DAILY quetiapine 200 mg PO DAILY ramelteon 8 mg PO BEDTIME 30 days sodium,potassium,mag sulfates 17.5-3.13-1.6 gram (Suprep Bowel Prep Kit) DILUTE; drink full amount early evening before AND next morning at least 2 hr before procedure; follow w 960 mL water PO sulfamethoxazole-trimethoprim 800-160 mg tabs PO temazepam 15 mg PO BEDTIME 30 days tizanidine 4 mg PO BID 90 days tramadol 50 mg PO BID 30 days trimethoprim 100 mg PO DAILY 90 days valacyclovir (Valtrex) 1,000 mg PO DAILY 90 days valacyclovir (Valtrex) 500 mg PO DAILY 90 days venlafaxine ER 150 mg PO DAILY 90 days vitamin B complex (B Complex-Vitamin B12 tablet) 1 tab PO DAILY walker need for regular walker walker As directed [wheelchair- manual As directed] HPI HPI colonoscopy screening: Details: 48-year-old female with cerebral palsy, referred for screening colonoscopy. She says she had a colonoscopy about 6 years ago and she was told to have another 1 this year. She does not recall where this colonoscopy was She describes constipation but otherwise denies any significant GI complaints She has a DESTINATION COORDINATOR who takes care of her. She is able to stand up and walk for short distances with assistance. However, she usually uses a wheelchair. She denies a family history of colon cancer. She has a known history of IBS. [facility] Medical History Pyelonephritis Herpes simplex Depression Anxiety Diabetes insipidus Cerebral palsy Surgical History History of surgery on lower extremity Hx of appendectomy Family History Father No problems noted. Mother No problems noted. Social History Housing: Apartment Alcohol intake: never Patient Tobacco Use Status: Never used Tobacco e-Cigarette/Vaping Use: Never Used Second Hand Smoke Exposure: No service: No Current occupational status: disabled Current occupational exposures/hazards: No Cognitive needs: Yes (wheel chair ) Hearing needs: No Vision needs: Yes Review of Systems Const Denies chills and Denies fever(s) Card Denies chest pain, Denies dyspnea and Denies dyspnea on exertion Resp Denies cough, Denies dyspnea and Denies dyspnea on exertion GI Denies hematochezia, Denies change in bowel habits and Reports constipation Denies hematuria Musc Details: On wheelchair Denies back pain, Denies limited range of motion and Reports muscle weakness Neuro Denies focal weakness and Denies convulsions Psych Denies depression and Denies mood swings Physical Exam Vital Signs: Last Vital Signs Pulse 101 H 06/24/24 13:24 BP 124/63 06/24/24 13:24 BMI result Body Mass Index 46.6 Const Other: On wheelchair, obese General: comfortable and no acute distress Orientation/consciousness: patient oriented x3 Neck Neck: Yes no lymphadenopathy Resp Auscultation: clear to auscultation bilaterally Cardio Rhythm: regular rhythm GI Other: Obese abdomen Palpation (GI): Soft to palpation, nontender and no guarding Neuro General: patient oriented x3 Assessment & Plan Assessment & Plan (1) Colon cancer screening: Code(s): Z12.11 - Encounter for screening for malignant neoplasm of colon Category: Medical Plan: I reviewed with the technique of colonoscopy for screening. I explained the risks including but not limited to bleeding and perforation, as well as the benefits and alternatives. She understands and wants to proceed. Medications: New sodium,potassium,mag sulfates 17.5-3.13-1.6 gram (Suprep Bowel Prep Kit) DILUTE; drink full amount early evening before AND next morning at least 2 hr before procedure; follow w 960 mL water PO 354 mL 0RF Coding Level of Care Code New Pt Level 3 (52931) Diagnoses Colon cancer screening Z12.11
[2024-06-24 13:24] VITALS: BP 124/63; PULSE 101; BMI 46.6
== END 2024-06-24 13:30 | disposition home or self-care (01) ==
LOC: HO.HGS 13:17
PROVIDERS: PCP Physician Assistant; Visit Provider Surgery
DX: Z12.11 Encounter for screening for malignant neoplasm of colon (principal)
CPT/HCPCS: 99203

== ENCOUNTER → 2024-06-24 13:17 | Outpatient (BNVA) | payer OTHER, SELFPAY | PROVIDERS: PCP Physician Assistant; Visit Provider Surgery | DX: Z01.818 Encounter for other preprocedural examination (principal) | CPT/HCPCS: 99202 ==

== ENCOUNTER 2024-07-16 09:22 | Outpatient (REF) | payer OTHER, SELFPAY ==
--- OUTSIDE RECORDS SUMMARY | 2024-07-16 12:46 | XMS_ITS | Clinical Summary ---
Author Organization [facility] Address [address] [place] [address] Phone Care Team Providers Care Tobacco Drying Machine Operator Name Role Phone Deonte Carmona Primary [...] - 05/05/2024 1:37 PM EST Hospital Encounter [facility] [address] [place] [phone] Lencho Hernandez MD Jones, MD Isabell Nieves Kashyap Devendrabhai, MD Acute cystitis without hematuria (Primary Dx); Acute urinary retention; SIRS due to infectious process with acute organ dysfunction ([facility]/HCC V24, CMS/[facility] V28) [place]: [place] [facility] [place] Surgical History Surgery Date Site/Laterality Comments APPENDECTOMY OTHER SURGICAL HISTORY Transsphenoidal hypophysectomy OTHER SURGICAL HISTORY Multiple surgeries at [facility] related to cerebral palsy Medical History Medical History Date Comments Diabetes mellitus (CMS/HCC V24, CMS/[facility] V28) Hypertension Depression Cerebral palsy (CMS/HCC V24, CMS/[facility] V28) Diabetes insipidus ([facility] V24) Hypothyroidism Hyperlipidemia Migraines Anxiety Chronic anemia [...] of3 resultswithin the time period is included. [facility] Signature Glucose POCT 104(H) 70 - 100 mg/dL 05/05/2024 6:09 AM EST [facility] Blood Capillary blood specimen / Unknown 05/05/2024 6:09 AM EST 05/05/2024 6:10 AM EST Moses Whyte MD LAB POINT O F CARE TEST DOCKED DEVICE UNSOLICITED RESULTS Final Result [facility] [address] [place] [address], [place] [phone] * CT Abdomen Pelvis w Contrast (05/03/2024 [...] Signed Date: 05/03/2024 15:24 ET Workstation ID: [id number] Transcribed By: Self Edit Transcribed Date: 05/03/2024 [...] Signed Date: 05/03/2024 15:24 ET Workstation ID: [id number] Transcribed By: Self Edit Transcribed Date: 05/03/2024 15:13 ET Moses Whyte MD IM CT PROCEDURES F inal Result * (ABNORMAL) Complete blood count (05/03/2024 6:05 AM EST) WBC 7.2 4.8 - 10.8 K/mcL LAB HEMETOLOGY METHOD 05/03/2024 7:13 AM EST [facility] RBC 3.20(L) 3.80 - 4.80 M/mcL LAB HEMETOLOGY METHOD 05/03/2024 7:13 AM EST [facility] Hemoglobin 10.5(L) 11.5 - 16.0 g/dL LAB HEMETOLOGY METHOD 05/03/2024 7:13 AM [facility] Hematocrit 31.9(L) 35.0 - 47.0 % LAB HEMETOLOGY METHOD 05/03/2024 7:13 AM [facility] MCV 99.4(H) 79.0 - 98.0 FL LAB HEMETOLOGY METHOD 05/03/2024 7:13 AM [facility] MCH 32.7(H) 27.0 - 32.0 pcg LAB HEMETOLOGY METHOD 05/03/2024 7:13 AM [facility] MCHC 32.9 32.0 - 37.0 g/dL LAB HEMETOLOGY METHOD 05/03/2024 7:13 AM [facility] RDW 13.9 11.0 - 15.0 % LAB HEMETOLOGY METHOD 05/03/2024 7:13 AM [facility] Platelets 186 130 - 400 K/mcL LAB HEMETOLOGY METHOD 05/03/2024 7:13 AM [facility] MPV 10.8 7.0 - 11.0 FL LAB HEMETOLOGY METHOD 05/03/2024 7:13 AM [facility] NRBC 0.0 <1.0 % LAB HEMETOLOGY METHOD 05/03/2024 7:13 AM [facility] NRBC Absolute 0.00 <0.10 K/mcL LAB HEMETOLOGY METHOD 05/03/2024 7:13 AM [facility] Blood Venous blood specimen / Unknown Venipuncture / Unknown 05/03/2024 6:05 AM EST 05/03/2024 6:47 AM EST us Moses Whyte MD LAB BLOOD ORDERABLE S Final Result [facility] [address] [place] [address], [place] [phone] * (ABNORMAL) Phosphorus (05/03/2024 6:05 AM EST) Phosphorus 2.2(L) 2.5 - 4.5 mg/dL LAB CHEMISTRY METHOD 05/03/2024 7:27 AM EST [facility] Blood Venous blood specimen / Unknown Venipuncture / Unknown 05/03/2024 6:05 AM EST 05/03/2024 6:48 AM EST us Moses Whyte MD LAB BLOOD ORDERABLE S Final Result Performing Organization Address City/[facility]/ZIP Co de Phone Number [facility] [address] [place] [address], * Magnesium (05/03/2024 6:05 AM EST) Only the most recent of3 resultswithin the time period is included. [facility] Magnesium 1.9 1.9 - 2.6 mg/dL LAB CHEMISTRY METHOD 05/03/2024 7:27 AM EST [facility] Blood Venous blood specimen / Unknown Venipuncture / Unknown 05/03/2024 6:05 AM EST 05/03/2024 6:48 AM EST us Moses Whyte MD LAB BLOOD ORDERABLE S Final Result [facility] [address] [place] [address], [place] [phone] * (ABNORMAL) Basic metabolic panel (05/03/2024 6:05 AM EST) Only the most recent of3 resultswithin the time period is included. Sodium 135 133 - 145 mmol/L LAB CHEMISTRY METHOD 05/03/2024 7:27 AM EST [facility] Potassium 3.7 3.5 - 5.5 mmol/L LAB CHEMISTRY METHOD 05/03/2024 7:27 AM [facility] Chloride 103 96 - 110 mmol/L LAB CHEMISTRY METHOD 05/03/2024 7:27 AM [facility] CO2 25 21 - 32 mmol/L LAB CHEMISTRY METHOD 05/03/2024 7:27 AM [facility] Anion Gap 7 3 - 11 LAB CHEMISTRY METHOD 05/03/2024 7:27 AM [facility] Glucose 107(H) 70 - 100 mg/dL LAB CHEMISTRY METHOD 05/03/2024 7:27 AM [facility] BUN 17 5 - 25 mg/dL LAB CHEMISTRY METHOD 05/03/2024 7:27 AM [facility] Creatinine 0.99 0.50 - 1.10 mg/dL LAB CHEMISTRY METHOD 05/03/2024 7:27 AM [facility] eGFR 70 >=60 mL/min/1. 73m2 LAB CHEMISTRY METHOD 05/03/2024 7:27 AM [facility] Comment:Calculation based on the??Chronic Kidney Disease Epidemiology Collaboration (CKD-EPI) equation refit??without adjustment for race. BUN/Creatinine Ratio 17.2 LAB CHEMISTRY METHOD 05/03/2024 7:27 AM [facility] Calcium 8.8 8.5 - 10.5 mg/dL LAB CHEMISTRY METHOD 05/03/2024 7:27 AM [facility] Blood Venous blood specimen / Unknown Venipuncture / Unknown 05/03/2024 6:05 AM EST 05/03/2024 6:48 AM EST us Moses Whyte MD LAB BLOOD ORDERABLE S Final Result [facility] [address] [place] [address], [place] [phone] * (ABNORMAL) CBC auto differential (05/02/2024 6:24 AM EST) Only the most recent of2 resultswithin the time period is included. [facility] Signature WBC 16.5(H) 4.8 - 10.8 K/mcL LAB HEMETOLOGY METHOD 05/02/2024 7:33 AM [facility] RBC 3.20(L) 3.80 - 4.80 M/mcL LAB HEMETOLOGY METHOD 05/02/2024 7:33 AM [facility] Hemoglobin 10.7(L) 11.5 - 16.0 g/dL LAB HEMETOLOGY METHOD 05/02/2024 7:33 AM [facility] Hematocrit 32.0(L) 35.0 - 47.0 % LAB HEMETOLOGY METHOD 05/02/2024 7:33 AM [facility] MCV 99.1(H) 79.0 - 98.0 FL LAB HEMETOLOGY METHOD 05/02/2024 7:33 AM [facility] MCH 33.1(H) 27.0 - 32.0 pcg LAB HEMETOLOGY METHOD 05/02/2024 7:33 AM [facility] MCHC 33.4 32.0 - 37.0 g/dL LAB HEMETOLOGY METHOD 05/02/2024 7:33 AM [facility] RDW 14.1 11.0 - 15.0 % LAB HEMETOLOGY METHOD 05/02/2024 7:33 AM [facility] Platelets 202 130 - 400 K/mcL LAB HEMETOLOGY METHOD 05/02/2024 7:33 AM [facility] MPV 10.4 7.0 - 11.0 FL LAB HEMETOLOGY METHOD 05/02/2024 7:33 AM [facility] NRBC 0.0 <1.0 % LAB HEMETOLOGY METHOD 05/02/2024 7:33 AM [facility] NRBC Absolute 0.00 <0.10 K/mcL LAB HEMETOLOGY METHOD 05/02/2024 7:33 AM [facility] Neutrophils Relative 86.7 % LAB HEMETOLOGY METHOD 05/02/2024 7:33 AM [facility] Lymphocytes Relative 3.8 % LAB HEMETOLOGY METHOD 05/02/2024 7:33 AM [facility] Monocytes Relative 8.5 % LAB HEMETOLOGY METHOD 05/02/2024 7:33 AM [facility] Eosinophils Relative 0.2 % LAB HEMETOLOGY METHOD 05/02/2024 7:33 AM [facility] Basophils Relative 0.3 % LAB HEMETOLOGY METHOD 05/02/2024 7:33 AM [facility] Immature Granulocytes Relative 0.5 % LAB HEMETOLOGY METHOD 05/02/2024 7:33 AM [facility] Neutrophils Absolute 14.28(H) 1.50 - 7.00 K/mcL LAB HEMETOLOGY METHOD 05/02/2024 7:33 AM [facility] Lymphocytes Absolute 0.63(L) 1.00 - 5.00 K/mcL LAB HEMETOLOGY METHOD 05/02/2024 7:33 AM [facility] Monocytes Absolute 1.40(H) 0.20 - 1.00 K/mcL LAB HEMETOLOGY METHOD 05/02/2024 7:33 AM [facility] Eosinophils Absolute 0.03 0.00 - 0.50 K/mcL LAB HEMETOLOGY METHOD 05/02/2024 7:33 AM [facility] Basophils Absolute 0.05 0.00 - 0.20 K/mcL LAB HEMETOLOGY METHOD 05/02/2024 7:33 AM [facility] Immature Granulocytes Absolute 0.09(H) 0.00 - 0.03 K/mcL LAB HEMETOLOGY METHOD 05/02/2024 7:33 AM EST [facility] Blood Venous blood specimen / Unknown Venipuncture / Unknown 05/02/2024 6:24 AM EST 05/02/2024 6:35 AM EST Ezequiel Reeves MD LAB BLOOD ORDERABLES Final Result Performing Organization Address City/[facility]/ZIP Co de Phone Number [facility] [address] [place] [address], [place] [phone] * (ABNORMAL) Blood Culture, Peripheral Draw #1 (05/01/2024 10:35 PM EST) Only the most recent of2 resultswithin the time period is included. [facility] Signature Culture, Blood Klebsiella pneumoniae ssp pneumoniae(AA) NATALIA 05/04/2024 8:49 AM EST [facility] Comment: The organism value for this result has been updated. These results have been appended to the previously preliminary verified report. This is an edited result. Previous organism was Gram negative bacilli on 05/03/2024 at 1014 EST. Gram Stain Result Anaerobic bottle Gram negative bacilli(AA) 05/04/2024 8:49 AM EST [facility] Comment:This is an appended report. These results have been appended to a previously preliminary verified report. Blood Venous blood specimen / Unknown Venipuncture / Unknown 05/01/2024 10:35 PM EST 05/01/2024 10:51 PM EST Narrative [facility] - 05/04/2024 8:49 AM EST FOR SUSCEPTIBILITIES, REFER TO PREVIOUS CULTURE FROM 05/01/24 at 2231. us Lencho Hernandez MD LAB MICROBIOLOGY - GENERAL ORD ERABLES Final Result Performing Organization Address City/[facility]/ZIP Co de Phone Number [facility] [address] [place] [address], [place] [phone] * (ABNORMAL) Blood culture pathogens molecular study (05/01/2024 10:31 PM EST) Klebsiella pneumoniae group Detected (A) Not Detected LAB MICROBIOLOGY METHOD 05/02/2024 1:14 PM EST [facility] Blood Venous blood specimen / Unknown Venipuncture / Unknown 05/01/2024 10:31 PM EST 05/01/2024 10:51 PM EST us Lencho Hernandez MD LAB MICROBIOLOGY - GENERAL ORD ERABLES Final Result [facility] [address] [place] [address], [place] [phone] * (ABNORMAL) Urine culture (05/01/2024 9:04 PM EST) [facility] Culture, Urine >100,000 CFU/mL Klebsiella pneumoniae ssp pneumoniae(A) NATALIA 05/04/2024 7:37 AM EST [facility] Comment: This is an edited [...] MICROBIOLOGY - GENERAL ORD ERABLES Final Result [facility] [address] [place] [address], * (ABNORMAL) Urinalysis with reflex microscopic (05/01/2024 8:52 PM EST) Specific [place] Urine 1.015 1.003 - 1.030 LAB URINALYSIS - AUTOMATED METHOD 05/01/2024 9:35 PM EST [facility] pH, Urine 6.0 5.0 - 8.0 pH LAB URINALYSIS - AUTOMATED METHOD 05/01/2024 9:35 PM [facility] Leukocytes, Urine Large(A) Negative LAB URINALYSIS - AUTOMATED METHOD 05/01/2024 9:35 PM [facility] Nitrite, Urine Positive(A) Negative LAB URINALYSIS - AUTOMATED METHOD 05/01/2024 9:35 PM [facility] Protein, Urine 100(A) <=Trace mg/dL LAB URINALYSIS - AUTOMATED METHOD 05/01/2024 9:35 PM [facility] Glucose, Urine Negative Negative mg/dL LAB URINALYSIS - AUTOMATED METHOD 05/01/2024 9:35 PM [facility] Ketones, Urine Negative Negative mg/dL LAB URINALYSIS - AUTOMATED METHOD 05/01/2024 9:35 PM [facility] Urobilinogen , Urine 0.2 0.2 - 1.0 mg/dL LAB URINALYSIS - AUTOMATED METHOD 05/01/2024 9:35 PM [facility] Bilirubin, Urine Negative Negative LAB URINALYSIS - AUTOMATED METHOD 05/01/2024 9:35 PM EST [facility] Blood, Urine Large(A) Negative LAB URINALYSIS - AUTOMATED METHOD 05/01/2024 9:35 PM [facility] RBC, Urine 15.0(H) 0 - 4 /HPF LAB URINALYSIS - AUTOMATED METHOD 05/01/2024 9:35 PM [facility] WBC, Urine 1,157.7(H) 0 - 4 /HPF LAB URINALYSIS - AUTOMATED METHOD 05/01/2024 9:35 PM [facility] Squamous Epithelial, Urine 8 0 - 60 /LPF LAB URINALYSIS - AUTOMATED METHOD 05/01/2024 9:35 PM [facility] Bacteria, Urine Many(A) Negative /HPF LAB URINALYSIS - AUTOMATED METHOD 05/01/2024 9:35 PM [facility] Hyaline Casts, Urine 0.0 0 - 3 /LPF LAB URINALYSIS - AUTOMATED METHOD 05/01/2024 9:35 PM [facility] Urine Urine specimen obtained by clean catch procedure / Unknown Non-blood Collection / Unknown 05/01/2024 8:52 PM EST 05/01/2024 9:14 PM EST us Lencho Hernandez MD LAB URINE ORDERABLES Final Res ult [facility] [address] [place] [address], [place] [phone] * XR Chest 2 Views (05/01/2024 7:34 PM EST) Anatomical Region Laterality Modality Body Radiographic Aniyah ging 05/02/2024 9:30 AM EST Impressions 05/02/2024 9:34 AM EST Hypoventilatory exam. ??No acute findings. -------- FINAL REPORT -------- Dictated By: Stefan Ambriz Dictated Date: 05/02/2024 09:30 ET Assigned Physician: Stefan Ambriz Reviewed and Electronically Signed By: Stefan Ambriz Signed Date: 05/02/2024 09:34 ET Workstation ID: [id number] Transcribed By: Self Edit Transcribed Date: 05/02/2024 [...] Signed Date: 05/02/2024 09:34 ET Workstation ID: [id number] Transcribed By: Self Edit Transcribed Date: 05/02/2024 09:30 ET Lencho Hernandez MD IMG XR PROCEDURES Final Result * Respiratory virus panel molecular study (05/01/2024 5:44 PM EST) Adenovirus Detection by PCR Not Detected Not Detected LAB MICROBIOLOGY METHOD 05/01/2024 6:55 PM EST [facility] Influenza A PCR Not Detected Not Detected LAB MICROBIOLOGY METHOD 05/01/2024 6:55 PM EST [facility] Influenza B PCR Not Detected Not Detected LAB MICROBIOLOGY METHOD 05/01/2024 6:55 PM EST [facility] Coronavirus 229E Not Detected Not Detected LAB MICROBIOLOGY METHOD 05/01/2024 6:55 PM EST [facility] Coronavirus HKU1 Not Detected Not Detected LAB MICROBIOLOGY METHOD 05/01/2024 6:55 PM [facility] Coronavirus OC43 Not Detected Not Detected LAB MICROBIOLOGY METHOD 05/01/2024 6:55 PM [facility] Coronavirus NL63 Not Detected Not Detected LAB MICROBIOLOGY METHOD 05/01/2024 6:55 PM EST [facility] Parainfluenza Virus 1 Not Detected Not Detected LAB MICROBIOLOGY METHOD 05/01/2024 6:55 PM [facility] Parainfluenza Virus 2 Not Detected Not Detected LAB MICROBIOLOGY METHOD 05/01/2024 6:55 PM [facility] Parainfluenza Virus 3 Not Detected Not Detected LAB MICROBIOLOGY METHOD 05/01/2024 6:55 PM [facility] Parainfluenza Virus 4 Not Detected Not Detected LAB MICROBIOLOGY METHOD 05/01/2024 6:55 PM [facility] RSV PCR Not Detected Not Detected LAB MICROBIOLOGY METHOD 05/01/2024 6:55 PM [facility] Human Metapneumovirus A and B Not Detected Not Detected LAB MICROBIOLOGY METHOD 05/01/2024 6:55 PM [facility] Rhinovirus/Entero virus Not Detected Not Detected LAB MICROBIOLOGY METHOD 05/01/2024 6:55 PM [facility] Bordetella pertussis Not Detected Not Detected LAB MICROBIOLOGY METHOD 05/01/2024 6:55 PM EST [facility] Bordetella parapertussis Not Detected Not Detected LAB MICROBIOLOGY METHOD 05/01/2024 6:55 PM [facility] Mycoplasma pneumo by PCR Not Detected Not Detected LAB MICROBIOLOGY METHOD 05/01/2024 6:55 PM [facility] Chlamydia pneumoniae Not Detected Not Detected LAB MICROBIOLOGY METHOD 05/01/2024 6:55 PM EST [facility] SARS COV-2 Not Detected Not Detected LAB MICROBIOLOGY METHOD 05/01/2024 6:55 PM EST [facility] Swab Both anterior nares / Unknown Non-blood Collection / Unknown 05/01/2024 5:44 PM EST 05/01/2024 5:57 PM EST [facility] - 05/01/2024 6:55 PM EST Testing was performed using the [employer] Respiratory Pathogen PCR Assay. All results must [...] MICROBIOLOGY - GENERAL ORD ERABLES Final Result [facility] [address] [place] [address], [place] [phone] * Troponin I high sensitivity (05/01/2024 5:42 PM EST) [facility] High Sensitivity Troponin I 4 <=54 ng/L LAB CHEMISTRY METHOD 05/01/2024 6:27 PM EST [facility] Blood Venous blood specimen / Unknown Venipuncture / Unknown 05/01/2024 5:42 PM EST 05/01/2024 5:57 PM EST [facility] - 05/01/2024 6:27 PM EST High levels of biotin in samples may falsely decrease hsTroponin values. ??Use caution when interpreting hsTroponin results in patients taking biotin who exhibit renal impairment (eGFR <60) or in patients taking more than 20 mg/day of biotin. Lencho Hernandez MD LAB BLOOD ORDERABLES Final Res ult Performing Organization Address [facility]/ZIP Co de Phone Number [facility] [address] [place] [address], [place] [phone] * Thyroid stimulating hormone with reflex to free t4 and free t3 (TSH Reflex) (05/01/2024 5:42 PM EST) TSH 0.84 0.40 - 4.00 mcIU/mL LAB CHEMISTRY METHOD 05/01/2024 6:35 PM [facility] Blood Venous blood specimen / Unknown Venipuncture / Unknown 05/01/2024 5:42 PM EST 05/01/2024 5:57 PM EST Lencho Hernandez MD LAB BLOOD ORDERABLES Final Res ult Performing Organization Address [facility]/ZIP Co de Phone Number [facility] [address] [place] [address], [place] [phone] * (ABNORMAL) Hepatic function panel (05/01/2024 5:42 PM EST) Total Protein 6.4 6.0 - 8.0 g/dL LAB CHEMISTRY METHOD 05/01/2024 6:27 PM [facility] Albumin 3.4 3.2 - 5.0 g/dL LAB CHEMISTRY METHOD 05/01/2024 6:27 PM [facility] Total Bilirubin 1.3 0.0 - 1.4 mg/dL LAB CHEMISTRY METHOD 05/01/2024 6:27 PM [facility] Bilirubin, Direct 0.6(H) 0.0 - 0.3 mg/dL LAB CHEMISTRY METHOD 05/01/2024 6:27 PM [facility] Bilirubin, Indirect 0.7 0.0 - 1.1 mg/dL LAB CHEMISTRY METHOD 05/01/2024 6:27 PM [facility] ALT (SGPT) 53 10 - 60 unit/L LAB CHEMISTRY METHOD 05/01/2024 6:27 PM EST [facility] AST (SGOT) 37 10 - 42 unit/L LAB CHEMISTRY METHOD 05/01/2024 6:27 PM EST [facility] Alkaline Phosphatase 118 42 - 121 unit/L LAB CHEMISTRY METHOD 05/01/2024 6:27 PM EST [facility] Blood Venous blood specimen / Unknown Venipuncture / Unknown 05/01/2024 5:42 PM EST 05/01/2024 5:57 PM EST Lencho Hernandez MD LAB BLOOD ORDERABLES Final Res ult [facility] [address] [place] [address], [place] [phone] * ECG 12 lead (05/01/2024 5:33 PM EST) Ventricular Rate ECG 110 BPM GEMUSE Atrial Rate 110 BPM GEMUSE P-R Interval 128 ms GEMUSE QRS Duration 74 ms GEMUSE Q-T Interval 342 ms GEMUSE QTc 462 ms GEMUSE P Wave Faison 54 degrees GEMUSE R Faison 25 degrees GEMUSE T Faison 12 degrees GEMUSE ECG Interpretation Sinus tachycardia [...] Final Result from Last [address] [place] [id number] [place] [address] MEDICARE Member Subscriber Plan / Payer (Ef fective 2017-Present) Name:Addis Durant Relation to Subscriber:Self Name:Addis Durant Payer ID:[id number] Group ID:[id number] Type:Not on file Address: [place] [address] [id number] Advance Directives Documents on File Type Date Recorded Patient Tank Refinisher Expl anation Health Care Decision (hx) 01/15/2023 [...] currently active code status orders. Care Teams Tobacco Drying Machine Operator Relationship Specialty Start Date End Date Deonte Carmona PA PCP - General Physician Director Market Intelligence 05/01/24
[2024-07-17 08:08] LABS: Syphilis Screen Nonreactive (Nonreactive)
[2024-07-17 08:19] LABS: HBsAGNum1 0.21 S/CO (0.00-0.99); HIV AB/AG Nonreactive (Nonreactive); HIV Num 1 0.12 S/CO (0.00-0.99); Hepatitis B Surface Antigen Negative (Negative); ~HepC Num1 0.14 S/CO (0.00-0.79); ~Hepatitis C Antibody Nonreactive (Nonreactive)
== END 2024-07-16 09:23 | disposition home or self-care (01) ==
LOC: HO.LAB 09:22
PROVIDERS: PCP Physician Assistant; Visit Provider Advanced Practice Midwife
DX: Z13.89 Encounter for screening for other disorder (principal)
CPT/HCPCS: 36415; 86780; 86803; 87340; 87389

== ENCOUNTER 2024-07-16 09:22 | Outpatient (AMB) | payer OTHER, SELFPAY ==
--- NOTE | 2024-07-16 09:25 | A.OFFVIS_ITS ---
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 Intake Note: c/o of vaginal itching,odor ,discharge x 1 month Anesthesia Tech Required: Yes Anesthesia Tech Language: Icelandic Emergency Operator: Emergency Operator Present Accompanied by: Employee Allergies trazodone Allergy (Unknown, Verified 07/16/24 09:33) hives zolmitriptan [Zomig] Allergy (Unknown, Verified 07/16/24 09:33) hives zolpidem [Ambien] Allergy (Unknown, Verified 07/16/24 09:33) hives Medication List - Last Reconciled 07/16/24 by Kierra Marquez CNM acetaminophen ER 1,300 mg (2 x 650 mg) PO Q12H PRN 90 days [adult pull ups As directed] atorvastatin 40 mg PO DAILY [BARIATRIC COMMODE As directed] [BILATERAL LOWER EXTREMITY AFO As directed] bisacodyl 10 mg SC DAILY PRN [id number]-[id number]-[id number] 50-325-40 mg 1 tab PO Q6H PRN cholecalciferol (vitamin D3) (Vitamin D3) 50 mcg PO DAILY desmopressin 0.1 mg PO BID 90 days [disposable bedpads As directed] disposable gloves As directed disposable gloves As directed docusate sodium (Colace) 100 mg PO BID 30 days doxepin 75 mg PO BID [Drop arm bed side commode As directed] famotidine 40 mg PO BEDTIME ferrous sulfate 325 mg PO DAILY 90 days Gait belt As directed incontinence pad, liner, disp As directed [incontinence wipes As directed] [incontinence wipes As directed] levonorgestrel (Mirena) intrauterine levothyroxine 75 mcg PO 6XW lidocaine 5% (Lidoderm) 1 patch topical DAILY meclizine 25 mg PO DAILY PRN 14 days methylcellulose (laxative) (Fiber Therapy (methylcellulose)) 500 mg PO TID mirabegron ER (Myrbetriq) 25 mg PO DAILY miscellaneous medical supply 1 ea miscellaneous BID 90 days miscellaneous medical supply 1 ea miscellaneous DAILY 99 days naproxen 500 mg PO BID 15 days omeprazole 40 mg PO DAILY pregabalin 200 mg PO BID 30 days quetiapine 50 mg PO DAILY quetiapine 200 mg PO DAILY [reusable underpads 36x54 As directed] sodium,potassium,mag sulfates 17.5-3.13-1.6 gram (Suprep Bowel Prep Kit) DILUTE; drink full amount early evening before AND next morning at least 2 hr before procedure; follow w 960 mL water PO temazepam 15 mg PO BEDTIME 30 days tizanidine 4 mg PO BID 90 days tramadol 50 mg PO BID 30 days valacyclovir (Valtrex) 1,000 mg PO DAILY 90 days valacyclovir (Valtrex) 500 mg PO DAILY 90 days venlafaxine ER 150 mg PO DAILY 90 days vitamin B complex (B Complex-Vitamin B12 tablet) 1 tab PO DAILY walker need for regular walker walker As directed [wheelchair- manual As directed] HPI HPI 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 She has cerebral palsy is wheelchair- bound. She is not able to move her legs out she says she has a Mirena IUD that was replaced 3 years ago at [facility]. She says that office has closed now. She gets light little periods with it. She wants to be checked for STDs because of a activity 2 years ago. She sometimes notes a malodor to her discharge. She is very limited in her movements she also has a red break in the skin under lining her right breast that she says was from stumbling against her walker but it appears consistent with dermatitis from moisture with possible yeast component. Patient states the Pap was not able to be done at her last visit here with respiratory coordinator and a plan was made for returning to have the procedure and an endometrial biopsy done and replacement of the IUD under anesthesia but instead she went elsewhere and they worse more successful. [facility] Medical History (Updated 07/16/24 @ 13:20 by Kierra Marquez CNM) Pyelonephritis Herpes simplex Depression Anxiety Diabetes insipidus Cerebral palsy Surgical History History of surgery on lower extremity Hx of appendectomy Family History (Updated 07/16/24 @ 09:39 by Queenie La CMA) Father No problems noted. Mother HTN (hypertension) Social History (Updated 07/16/24 @ 09:40 by Queenie La CMA) Household Members: None Housing: Apartment Alcohol intake: never Patient Tobacco Use Status: Never used Tobacco e-Cigarette/Vaping Use: Never Used Second Hand Smoke Exposure: No service: No Current occupational status: disabled Current occupational exposures/hazards: No Sexual orientation: Straight/Heterosexual Cognitive needs: Yes (wheel chair ) Hearing needs: No Vision needs: Yes Female Reproductive History Menstrual control method: progestin IUCD Total pregnancies: 0 Date of Mammogram: 04/29/24 Physical Exam Vital Signs: Last Vital Signs BP 122/74 07/16/24 09:29 BMI result Body Mass Index 47.1 Const Other: Patient is wheelchair-bound from cerebral palsy has extremely limited mobility and has profound spasticity of extremities especially lower extremities such that she was not able to widen her legs out to accommodate a normal pelvic exam so the pelvic exam was done with great difficulty.. If improved visualization was necessary for instance for removal or replacement of her Mirena IUD she might very well need to have the procedure done under anesthesia. Chest Other: No masses palpated breasts are somewhat flattened. She has a reddened skin crack under the right breast covering the whole lower border of the breast in the skin fold consistent with yeast dermatitis. No masses palpated nipples are everted. Other: External exam patient's legs are spastic likely somewhat closed and unable to relax enough to open to permit normal speculum exam or pelvic exam very gentle and slow attempt made to insert Rosmery speculum into vagina cervix briefly glimpsed with Mirena IU S string visible and some blood visible at cervix. Patient however involuntarily pushing and expelled speculum despite provider effort to hold it in so Pap smear was done somewhat blindly additionally blind swabs taken to check for gonorrhea chlamydia trichomoniasis bacterial vaginosis and yeast per patient desired to have full STD screen to check for anything from a 2 year previous exposure. Testing also ordered for blood work for HIV hep B hep C and syphilis. I did let the patient know that if it came time to do anything to the IUD be it remove it replace it or anything else any future exams requiring such exposure would need probably to be done under anesthesia and not by me. I told the patient that results will be available Friday as there we will be no one checking results over the weekend. We would call her for anything positive reviewed that bacterial vaginosis and yeast do not necessarily need treatment she had no physical evidence of an abnormal discharge or either of these findings but this was for information for her. Extremely limited and difficult bimanual exam revealed nontender notice at her cervix which was barely able to be reached was I was unable to palpate there uterus her ovaries but she did not have any discomfort. She does possess very limited ability to relax her muscles she says she has not been sexually active in a couple of years.. 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 pap done w difficulty as well as sti screens. mirena string briefly glimpsed in cervix. Code(s): G80.9 - Cerebral palsy, unspecified Category: Medical Qualifiers: Cerebral palsy type: unspecified type Qualified Code(s): G80.9 - Cerebral palsy, unspecified (2) Encounter for screening examination for sexually transmitted disease: Code(s): Z11.3 - Encounter for screening for infections with a predominantly sexual mode of transmission Category: Medical (3) Dermatitis associated with moisture: Comment: Under right breast, Rx miconazole powder... Code(s): L30.8 - Other specified dermatitis Category: Medical (4) Presence of 52 mg levonorgestrel-releasing intrauterine device (IUD): Comment: [facility] given difficulty of exam 07/16/2024 suspect future replacements would need to take place under anesthesia. Code(s): Z97.5 - Presence of (intrauterine) contraceptive device Category: Social Hx (5) Cervical cancer screening: Comment: Cervix visualized but patient involuntarily pushing speculum out while Pap being done so Pap being done somewhat blindly we will await results. Code(s): Z12.4 - Encounter for screening for malignant neoplasm of cervix Category: Medical Plan Patient is here with her DONOR SERVICES COORDINATOR and a male older friend/partner who waited outside but join to help move her in the room.. 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 She has cerebral palsy is wheelchair- bound. She is not able to move her legs out she says she has a Mirena IUD that was replaced 3 years ago at [facility]. She says that office has closed now. She gets light little periods with it. She wants to be checked for STDs because of a activity 2 years ago. She sometimes notes a malodor to her discharge. She is very limited in her movements she also has a red break in the skin under lining her right breast that she says was from stumbling against her walker but it appears consistent with dermatitis from moisture with possible yeast component. Patient states the Pap was not able to be done at her last visit here with respiratory coordinator and a plan was made for returning to have the procedure and an endometrial biopsy done and replacement of the IUD under anesthesia but instead she went elsewhere and they worse more successful. Today breast exam within normal limits I am prescribing miconazole powder to place under that breast twice a day and if it does not help or there is any change to it I recommend she check with her primary care provider. She and her DONOR SERVICES COORDINATOR or keeping the skin clean and dry. Speculum and pelvic exam were done with extreme difficulty as patient is legs and hips are completely spastic and do not open and she was not able to relax them at all Rosmery speculum was placed but her muscular force pushed it out I did catch a glimpse of her cervix which was pink and nulliparous with a Mirena string but having slight menses. Pap smear was done somewhat blindly and swabs taken as well for gonorrhea and chlamydia trichomoniasis as well as bacterial vaginosis and yeast. Discharge appeared clear and white and very normal. I am also ordering testing for her for HIV hep B hep C and syphilis and she is going to be going to the lab now I told her that results will be available after Friday and we will call her for anything positive. Orders: Orders Pap Smear Today Z01.419 - Encounter for gynecological examination (general) (routine) without abnormal findings HPV High risk Today Z01.419 - Encounter for gynecological examination (general) (routine) without abnormal findings Bacterial Vaginosis Panel Today Z01.419 - Encounter for gynecological examination (general) (routine) without abnormal findings Syphilis Screen Today G80.9 - Cerebral palsy, unspecified, L30.8 - Other specified dermatitis, Z11.3 - Encounter for screening for infections with a predominantly sexual mode of transmission, Z97.5 - Presence of (intrauterine) contraceptive device HIV Ab/Ag Today G80.9 - Cerebral palsy, unspecified, L30.8 - Other specified dermatitis, Z11.3 - Encounter for screening for infections with a predominantly sexual mode of transmission, Z97.5 - Presence of (intrauterine) contraceptive device CT NG by PCR Today Z01.419 - Encounter for gynecological examination (general) (routine) without abnormal findings Hepatitis B Surface Antigen Today G80.9 - Cerebral palsy, unspecified, L30.8 - Other specified dermatitis, Z11.3 - Encounter for screening for infections with a predominantly sexual mode of transmission, Z97.5 - Presence of (intrauterine) contraceptive device Hepatitis C Antibody Today G80.9 - Cerebral palsy, unspecified, L30.8 - Other specified dermatitis, Z11.3 - Encounter for screening for infections with a predominantly sexual mode of transmission, Z97.5 - Presence of (intrauterine) contraceptive device Medications: New miconazole nitrate 2% 1 appl topical BID 85 grams 3RF Coding Level of Care Code New Pt Prev Care 40-64y(44226) Diagnoses Cerebral palsy, unspecified type G80.9 Cerebral palsy type: unspecified type Encounter for screening examination for sexually transmitted disease Z11.3 Dermatitis associated with moisture L30.8 Presence of 52 mg levonorgestrel-releasing intrauterine device (IUD) Z97.5 Cervical cancer screening Z12.4
[2024-07-16 09:29] VITALS: BP 122/74; BMI 47.1
--- OUTSIDE RECORDS SUMMARY | 2024-07-16 09:52 | XMS_ITS | Data Portability ---
Author Organization [employer] [place] Address [address] [place] [address] Care Team Providers Care Pre School Manager Name Role Phone HIM [facility] Referring Provider [phone] DARRION BARNES Primary Care Provider [phone] Assessment Encounter Date Assessment Date Assessment LastModified by Organization Details LastModified Time 05/10/2024 05/10/2024 I have reviewed and agree with the assessment and plan as documented by the bilingual operator. I provided real-time medical direction for this [...] functioning. VSS. Exam otherwise unremarkable per the bilingual operator. BMP reveals K 3.5. Otherwise unremarkable. Impression: [...] other concerns. [email or web address] Not available 05/10/2024 16:54:36 07/12/2024 07/12/2024 I provided real -time medical direction via phone for this encounter and was available for additional phone-based assistance as needed. I have reviewed and agree with the Assessment and Plan as documented by the Parking Regulation Enforcement Officer. Patient given the opportunity to ask questions. Our service contacted for an assessment of: Urinary symptoms As per above, patient with approximately 24 hours of dysuria, difficulty emptying her bladder. Positive history of frequent urinary tract infections. Follows with urology. Denies fever, chills, abdominal pain, back pain, flank pain. Per bilingual operator on the scene, Vital signs are stable and the patient is afebrile. Patient is nontoxic in appearance. UA is positive for leukocytes. Impression: Urinary symptoms and UTI Plan: Based on previous treatment from urology, Bactrim DS BID times 7 days was started. Culture sent. Red flags discussed. Allergies: reviewed We discussed the diagnostic uncertainty of home visits and the risk associated with this. In this case, the patient and I felt this to be an acceptable and reasonable amount of risk given the benefit of avoiding an ED visit. We discussed the need to seek care urgently/emergentl y in the setting of any new or worsening serious symptoms, particularly fever chills [email or web address] Not available 07/12/2024 17:35:25 Plan of Treatment Reminders Order Date Submit Date Provider Last Modified By Organization Details Last Modified Time Details Appointments None recorded. Lab urinalysis, dipstick 2024 025 [facility], [address] [place] [address], [id number] 21:25:44 culture, urine 2024 025 [facility] (Centralized Electronic Ordering - All Locations), Patient Can Go To The Location Of Their Choice, [id number] 10:07:40 BMP, serum or plasma 2024 025 [facility], [address] [place] [address], [phone] 16:54:48 Referral None recorded. Procedures None recorded. Surgeries None recorded. Imaging None recorded. Medication Orders sulfamethox azole 800 mg-trimetho prim 160 mg tablet [address]/[facility]arm[id number], [address] [place], [address], 17:32:32 sulfamethox azole 800 mg-trimetho prim 160 mg tablet 04/14/ 2025 04/14/2 025 [id number], [address] [place], [address], 5 17:32:35 potassium chloride ER 20 mEq tablet,exte nded release 2024 025 pays[facility] #[id number], [address] [place], [address], 5 16:53:27 ketorolac 30 mg/mL injection solution 2023 024 [email or web address] Not available 4 16:03:36 ketorolac 30 mg/mL injection solution 2023 024 [email or web address] Not available 16:49:30 Patient TargetsNo targets recorded. Patient InstructionsNo instructions recorded. Reason for Referral None Reported. Results Created Date Observation Date Name Description Value Unit Range Abnormal Flag Note LastModifiedBy Organization Detail LastModifiedTime 07/13/1907/15/2024 URINE CULTU RE, PAPOI NE urine culture, routine Final report abnormal Not Available [facility] ([facility]) [address] [facility] [address], [place], [address], 07/15/2024 08:11:57 07/13/19 25 07/15/2024 URINE CULTU RE, ROUTI NE result 1 Klebsi michelle pneumo niae abnormal Cefaz kendall with an NATALIA <=16 predi cts susce ptibi lity to the oral agent s cefac tasha, cefdi dillon, cefpo doxim e, cefpr ozil, cefur oxime , cepha lexin , and lorac arbef when used for thera py of uncom plica romelia urina ry tract infec tions due to E. coli, Klebs iella pneum oniae , and Prote us mirab ilis. Multi -Drug Resis tant Organ ism Great er than 100,0 00 colon y formi ng units per mL Not Available [facility] ([facility]) [address] [facility] [address], [place], [address], 07/15/2024 08:11:57 07/13/19 25 07/15/2024 URINE CULTU RE, ROUTI NE antimicrobia l susceptibili ty Commen t S = Susce ptibl e; I = Inter media te; R = Resis tant P = Posit beck; N = Negat beck MICS are expre ssed in micro grams per mL Antib iotic RSLT# 1 RSLT# 2 RSLT# 3 RSLT# 4 Amoxi cilli n/Cla vulan ic Acid S Ampic illin R Cefaz kendall S Cefep jassi S Cefox itin S Cefpo doxim e S Ceftr iaxon e S Cipro floxa markos S Ertap enem S Genta micin S Levof loxac in S [place] enem S Nitro furan toin R Piper acill in/Ta zobac corea I Tetra cycli ne R Tobra mycin S Trime thopr im/Gautam lfa R Not Available [facility] ([facility]) [address] [facility] [address], [place], [address], 07/15/2024 08:11:57 Result Notes None recorded. Medical Equipment None Reported. Allergies Allergen ID Allergen Name Allergen Category Reaction Reaction Severity Criticality Documentation Date Start Date Code Code System Note Provider Name and Address Organization Details Recorded Time 6339 Zomig medicatio n Not available Not available Not available 12/26/2023 38161 4 RxNorm Not Available [facility] - production 5 13:48:13 6340 Ambien medicatio n Not available Not available Not available 12/26/2023 04186 5 RxNorm Not Available [facility] - production 5 13:48:13 6341 trazodone medicatio n Not available Not available Not available 12/26/2023 81387 RxNorm Not Available [facility] - production 4 [...] Available Not Available No t Available cefpodoxime 100 mg tablet Take 1 tablet every 12 hours by oral route for 7 days. 2024 active Not Available Not Available Not Avai lable tizanidine 4 mg tablet TAKE 1 TABLET [...] zole 800 mg-trimethop rim 160 mg tablet Take 1 tablet every 12 hours by oral route for 7 days. 2024 active Not Available Not Available Not Avai lable omeprazole 40 mg capsule,jaun yed release TAKE [...] Address Organization Details Last Updated DateTime 4 66266.2 8 g 142.24 cm 16 /min 98.1 [degF] 96 /min 96 % 96 % 102 mm[Hg] 69 mm[Hg] Not Available [facility] 4 16:41:38 Date Recorded Oxygen saturation Oxygen saturation in Arterial blood by Pulse oximetry Respiratory rate Body temperature Body weight Heart rate Body height Systolic blood pressure Diastolic blood pressure Provider Name and Address Organization Details Last Updated DateTime 4 95 % 95 % 16 /min 97.2 [degF] 83977.2 8 g 91 /min 142.24 cm 135 mm[Hg] 85 mm[Hg] Not Available [facility] [facility] production 4 15:57:01 Date Recorded Oxygen saturation Oxygen saturation in Arterial blood by Pulse oximetry Heart rate Body temperature Respiratory rate Body height Body weight Systolic blood pressure Diastolic blood pressure Provider Name and Address Organization Details Last Updated DateTime 4 96 % 96 % 96 /min 97 [degF] 16 /min 142.24 cm 20780.2 8 g 126 mm[Hg] 76 mm[Hg] Not Available [facility] production 4 14:10:42 Date Recorded Oxygen saturation Oxygen saturation in Arterial blood by Pulse oximetry Body temperature Respiratory rate Heart rate Systolic blood pressure Diastolic blood pressure Provider Name and Address Organization Details Last Updated DateTime 5 97 % 97 % 98.2 [degF] 17 /min 86 /min 128 mm[Hg] 82 mm[Hg] Not Available [employer] [facility] production 5 16:32:24 Date Recorded Oxygen saturation Oxygen saturation in Arterial blood by Pulse oximetry Respiratory rate Heart rate Body temperature Systolic blood pressure Diastolic blood pressure Provider Name and Address Organization Details Last Updated DateTime 97 % 97 % 18 /min 102 /min 98.9 [degF] 152 mm[Hg] 98 mm[Hg] Not Available [facility] - production 17:28:47 Social History None recorded. Functional Status None recorded. Mental Status None recorded. Family History Nothing Reported. Medical History No medical history recorded. Gynecological HistoryNo gynecological history recorded. Obstetrics History GPAL:G 0 P 0 0 0 0 Past Encounters Encounter ID Performer Location Encounter Start Date Encounter Closed Date Diagnosis/Indication Diagnosis SNOMED-CT Code Diagnosis ICD10 Code Diagnosis Note [id number] Spencer Lacy MD [facility] - [facility] [address] [place] [phone] 05/08/2023 16:37:50 05/08/2023 21:46:30 Right side sciatica 3860756596 20487 M54.31 Hx of kidney stones but no renal impairment . Amenable to 1x dose of Toradol today. Discussed red flag signs for which to seek higher level of care. Bao Grant MD Main - [facility] [address] [place] [phone] 06/10/2023 15:56:55 06/11/2023 11:17:03 Arthritis 6668812 M19.90 As noted, we were called to see this patient regarding concerns of bilateral knee arthritis. Evaluation in the field was performed by my bilingual operator colleague, as noted above, I provided real-time [...] or worsening serious symptoms, particular ly fever. [id number] FERNANDA CHON MD Main - [address] [phone] 12/26/2023 14:10:39 12/29/2023 08:17:01 Injury of elbow 822902467 S59.901A Evaluation in the field was performed by my bilingual operator colleague, as noted above, I provided real-time [...] Vital signs are stable.Per discussion with the bilingual operator, there is swelling of the right elbow [...] decision was made to refer her to [facility] ED via ambulance. -No ketorolac was administer ed, as it can delay healing in the case of a fracture.- An expect called at [facility] ED Primary care, consider__ _ Dispositio n: [facility] [place] [id number] Lakshmi Jarvis MD Main - [facility] [address] [place] [phone] 05/10/2024 16:20:31 05/10/2024 21:46:36 Fatigue 50641680 R53.83 Hypokalemia 22714943 E87 .6 [id number] Meli Crawford MD Main - [facility] [address] [place] [address] 07/12/2024 17:28:39 07/12/2024 18:11:12 Urinary system finding 183870124 R39.9 Health Concerns Section Related Observation LastModified by Organization Detai ls LastModified Time None Recorded Concern Status LastModified by Organization Details LastModified Time None Recorded Advance Directives Directive None Recorded Payers Encounter Date Sequence Insurance Name Policy Number Policy Oconnor Covered Member ID Oconnor Member ID Guarantor Name 05/08/2023 1 [facility] - DOS ON OR AFTER 2022 - DUAL ELIGIBLE - [facility] OPTIONS AND ONE CARE (MEDICARE REPLACEMENT/ADV ANTAGE - HMO) Addis Durant [id number] Addis Durant 06/10/2023 1 [employer] - DOS ON OR AFTER 2022 - DUAL ELIGIBLE - [facility] OPTIONS AND ONE CARE (MEDICARE REPLACEMENT/ADV ANTAGE - HMO) Addis Durant [id number] Addis Durant 12/26/2023 1 [employer] - DOS ON OR AFTER 2022 - DUAL ELIGIBLE - [facility] OPTIONS AND ONE CARE (MEDICARE REPLACEMENT/ADV ANTAGE - HMO) Addis Durant [id number] Addis Durant 05/10/2024 1 [facility] - DOS ON OR AFTER 2022 - DUAL ELIGIBLE - [facility] OPTIONS AND ONE CARE (MEDICARE REPLACEMENT/ADV ANTAGE - HMO) Addis Durant [id number] Addis Durant 07/12/2024 1 [facility] - DOS ON OR AFTER 2022 - DUAL ELIGIBLE - [facility] OPTIONS AND ONE CARE (MEDICARE REPLACEMENT/ADV ANTAGE - HMO) Addis Durant [id number] Addis Durant Notes Date Note Type Note [...] falls. Took Tylenol arthritis for pain. Spencer Layc MD [address] [place] [address],[address], [place], [address], [employer] 05/08/2023 17:42:14 06/10/2023 text/html CRC Nurse Triage Notes (Hallie Vela): Reason For Request: Pt's authorization rep reporting mbr is handicap/unable to walk>pain on both knees, almost falls to the ground when attempting to stand and unable to sleep with the pain>going on 2 weeks. Chief Complaints: Pain PMH: Diabetes Allergies: Trazodone Comments: Member is a icelandic speaking member , that is a 47 yr old female that is handicap and unable to walk at baseline. PAPERHANGER AND PAINTER calling in for new bilateral knee pain . PAPERHANGER AND PAINTER is trying to connect with PCP and is looking for pain management . PAPERHANGER AND PAINTER / member are aware we do not do imaging ...................... ...................... ...................... ...................... ...................... ...................... ......... Parking Regulation Enforcement Officer Note From Jefferson Luna: Pt with CP [...] ...................... ...................... ...................... ...................... ...................... ......... Disposition: Formerly Named [facility] Bao Grant MD [address] [place] [address],[address], [place], [phone], [employer] 06/10/2023 17:06:45 12/26/2023 text/html CRC Nurse Triage Notes (Hallie Vela): Reason For Request: Pt's PAPERHANGER AND PAINTER Emmie reporting a fall from either yesterday or the day before during the morning hours, authorization rep noting right arm pain Chief Complaints: Falls PMH: Diabetes Allergies: Trazodone Comments: The flex o writer operator verified the member's name//address, and phone number. Member is a 48 yr old female , icelandic speaking female, a/o3 PMH >DM Allergies >trazadone PAPERHANGER AND PAINTER is called for a pt that fell [...] ...................... ...................... ...................... ...................... ...................... ...................... ......... Parking Regulation Enforcement Officer Note From Bao Nelson: [facility] makes pt contact, 48 yo F CC of a fall two days ago.[facility] obtains vital signs. PT explains she [...] walker. PT allergies confirmed, trazadone, ambien, zomig. [facility] contacts [facility]. [facility] advises we can treat acute pain with toradol although she is concerned that it could be fractured. PT is NOT given toradol due to be transported to the hospital via ambulance. [facility] stressed to PT that she needs imaging as soon as possible, to be placed in a sling, and have a orthopedic determine the best treatment plan. PT is advised to either go to the ED for imaging and assessment or go to an urgent care. PT has limited ability to go to urgent care. IT is decided among pt, [facility], and [facility] that an ambulance would best suit her needs and have the elbow examined at the hospital. After some discussion pt agrees. [facility] contacts [facility] via 911 for transport to [facility] per pt request. [facility] waits for EMS and assists EMS with pt extrication. [facility] clears. ...................... ...................... ...................... ...................... ...................... ...................... ......... Disposition: Norma FERNANDA COHN MD [address] [facility],[address], [place], [address], [employer] 12/26/2023 18:02:37 05/10/2024 text/html CRC Nurse Triage Notes (Susana Murguia - RN): Reason For Request: Pt's PAPERHANGER AND PAINTER Emmie reporting weakness, dizziness, headache going on [...] Pain, Chronic Pain, Cholecystectomy PMH Reviewed at 05/10/2024:48 Allergies Reviewed at 05/10/2024 13:48 Comments: Patients PAPERHANGER AND PAINTER calling in to place a referral, patient identified via name and . PAPERHANGER AND PAINTER and patient a poor historian of PMH, [...] fever/chills. Patient would like to be evaluated. Parking Regulation Enforcement Officer Organization Information for Lamonte Owens [employer] Legal Name: [employer] Address: [address] [place] [address], Chief Deputy: Keyon WEINER No.: [id number] Parking Regulation Enforcement Officer POC Test Results from Lamonte Owens - [facility] iSTAT Chem8+ (16:50:32) Na: 139 mEq/L K: 3.5 mEq/L Cl: 103 mEq/L iCa: 1.17 mmol/L TCO2: 24 mmol/L Glu: 136 mg/dL BUN: 13 mg/dL Crea: 0.7 mg/dL Hct: 37 % Hb: 12.6 g/dL A ...................... ...................... ...................... ...................... ...................... ...................... ......... Parking Regulation Enforcement Officer Note From Roman Lamonte: Dispatch to the call address for the [...] ...................... ...................... ...................... ...................... ...................... ...................... ......... [facility] Consulted: Lakshmi Jarvis ...................... ...................... ...................... ...................... ...................... ...................... ......... Disposition: Fulfilled Lakshmi Jarvis MD [address] [place] [address],[address], [place], [address], [employer] 05/10/2024 18:07:06 07/12/2024 text/html CRC Nurse Triage Notes (Peter Cortes): Reason For Request: Pt reporting suspected UTI Denies: Unable to void greater than 5 hours Erection that will not go away after 2 hours Fall or trauma that results in urinary incontinence in the setting of pain Fall or injury that results in incontinence in the absence of pain Lower back pain either unilateral or bilateral, unable to void, painful urination -hematuria Chief Complaints: Urinary Symptoms PMH: Hypothyroidism, Anxiety Disorder, Gastroesophageal Reflux Disease (GERD), Chronic Back Pain, Chronic Pain, Cholecystectomy PMH Reviewed at 07/12/2024 - 15:35 Allergies Reviewed at 07/12/2024 - 15:35 Comments: Additional PMH: Cerebral Palsy Polysomnographic Tech verified the patient's name//address and phone number. Pt's physical therapist calling reporting patient had multiple falls last week. Patient has hx of frequent UTIs, patient took home urine strip test about a week ago and it showed a UTI. Pt then called urologist for an appointment or to call in antibiotics for her but urologist did not have any appointments and did not call in a prescription. Pt told physical therapist about this today and PT helping patient call in for a visit. Pt reportedly with recent admission to the hospital for sepsis. Pt with increased difficulty urinating from baseline. Physical therapist reporting pt with increased back pain, unsure if from fall or from the urinary infection. Education provided on the response time and the patient was advised to monitor reported s/s and seek emergency treatment if needed -Ambar Cortes RN Parking Regulation Enforcement Officer Organization Information for [employer]en[employer] Legal Name: [employer]? Address: [address] [place] [address], Chief Deputy: Keyon HERRONIA No.: [id number] Parking Regulation Enforcement Officer POC Test Results from Elenyoli Adria Flaquita PALACIOS Urine Dipstick (16:45:00) Urine leukocytes: 500+++ VIRIDIANA Urine nitrites: - NIT Urine urobilinogen: 0.2 3.5 URO Urine protein: 15+- 0.15 PRO Urine pH: 5.0 pH Urine blood: 50 BLO Urine specific gravity: 1.010 SG Urine ketones: 5+- 0.5 KET Urine bilirubin: 1 + 17 CARLOS Urine glucose: - GLU Attachments uploaded as part of this test result can be found under Documents section. ...................... ...................... ...................... ...................... ...................... ...................... ......... Parking Regulation Enforcement Officer Note From Adria Castillo: Encountered patient, conscious alert and supine with family present. Patient reports she has chronic UTIs, her most recent being diagnosed on 06/19/24 for which she received a week long course of Bactrim. Patient reports that the Bactrim was helpful but that her symptoms returned approximately two weeks later. Patient reports that she took an at home test, which suggested she had a new urinary tract infection and attempted to make contact with her neurologist in order for an appointment and another prescription to no avail. Patient reports painful and difficult urination. UA obtained, results uploaded for [facility] via [employer] [place]. Skin warm, dry and of appropriate color for ethnicity. Head and neck free of trauma edema.-JVD. Breath sounds present clear and equal bilaterally. Abdomen soft non-tender and non-distended. Extremities of trauma and edema. The contacted: orders for urine culture obtained, to be delivered to the lab after call. One dose of PO Bactrim administered, [facility] to write prescription for further treatment at patient? s pharmacy of choice. Patient advised to monitor for signs of sepsis, including fevers, increased difficulty urinating or changes in mentation. Patient verbalizes understanding and is comfortable with the plan of remaining at home. [facility] Lab Orders: urinalysis, dipstick: Performed culture, urine: Performed [facility] Medication Orders: sulfamethoxazole 800 mg-trimethoprim 160 mg tablet: Administered ...................... ...................... ...................... ...................... ...................... ...................... ......... [facility] Consulted: Meli Crawford ...................... ...................... ...................... ...................... ...................... ...................... ......... Disposition: Fulfilled Meli Crawford MD [address] [place] [address],[address], [place], [phone], [employer] [facility] 07/12/2024 17:50:06 OBGyn Episode No OBEpisode recorded.
--- OUTSIDE RECORDS SUMMARY | 2024-07-16 09:52 | XMS_ITS | Clinical Summary ---
Author Organization [facility] Address [address] [place] [address] Phone Care Team Providers Care Second Grade Teacher Name Role Phone Deonte Carmona Primary Care [...] mouth 2 (two) times a day. 10/10/2015 Active famotidine (PEPCID) 40 mg tablet Take [...] mouth 1 (one) time each day. 09/25/2018 Active QUEtiapine (SEROquel) 200 mg tablet Take 1 tablet (200 mg total) by mouth at bedtime. Active tiZANidine (ZANAFLEX) 4 mg tablet Take 1 tablet (4 mg total) by mouth 2 (two) times a day if needed for muscle spasms. 04/17/2024 Active traMADoL (ULTRAM) 50 mg tablet Take 1 tablet (50 mg total) by mouth 2 (two) times a day if needed (breakthroug h pain). 10/27/2015 Active valACYclovir (VALTREX) 500 mg tablet Take 1 tablet (500 mg total) by mouth 1 (one) time each day. 02/24/2024 Active venlafaxine XR (EFFEXOR-XR) 150 mg 24 hr capsule Take 1 capsule (150 mg total) by mouth 1 (one) time each day. 07/28/2015 Active zaleplon (SONATA) 5 mg capsule Take 1 capsule (5 mg total) by mouth at bedtime. 09/25/2018 Active Active Problems Problem Noted Date Diagnosed Date Pyelonephritis 05/05/2024 Bacteremia 05/05/2024 Acute cystitis without hematuria 05/01/2024 Encounters Date Type Department Care Team Description 05/01/2024 4:39 PM EST - 05/05/2024 1:37 PM EST Hospital Encounter [facility] [address] [place] [id number] Lencho Hernandez MD Jones, MD Isabell Nieves Kashyap Devendrabhai, MD Acute cystitis without hematuria (Primary Dx); Acute urinary retention; SIRS due to infectious process with acute organ dysfunction ([facility]/HCC V24, CMS/[facility] V28) Discharge Disposition: Home-Health Care [facility] [place] [facility] from Last 3 Months Surgical History Surgery Date Site/Laterality Comments APPENDECTOMY OTHER SURGICAL HISTORY Transsphenoidal hypophysectomy OTHER SURGICAL HISTORY Multiple surgeries at [facility] related to cerebral palsy Medical History Medical History Date Comments Diabetes mellitus (CMS/HCC V24, CMS/[facility] V28) Hypertension Depression Cerebral palsy (CMS/HCC V24, CMS/[facility] V28) Diabetes insipidus ([facility] V24) Hypothyroidism Hyperlipidemia Migraines Anxiety Chronic anemia GERD [...] of 2) 09/25/2023 COVID-19 Vaccine (3 - 2023- season) 2023 02/14/2021, 07/31/2020 DTaP,Tdap,and Td Vaccines [...] age to complete this topic Meningococcal B Vaccine Aged Out No l onger eligible based on patient's age to complete [...] of3 resultswithin the time period is included. [facility] Signature Glucose POCT 104(H) 70 - 100 mg/dL 05/05/2024 6:09 AM EST [facility] Blood Capillary blood specimen / Unknown 05/05/2024 6:09 AM EST 05/05/2024 6:10 AM EST Moses Whyte MD LAB POINT O F CARE TEST DOCKED DEVICE UNSOLICITED RESULTS Final Result [facility] [address] [place] [address], [place] [phone] * CT Abdomen Pelvis w Contrast (05/03/2024 [...] Signed Date: 05/03/2024 15:24 ET Workstation ID: [id number] Transcribed By: Self Edit Transcribed Date: 05/03/2024 [...] Signed Date: 05/03/2024 15:24 ET Workstation ID: [id number] Transcribed By: Self Edit Transcribed Date: 05/03/2024 15:13 ET Moses Whyte MD IM CT PROCEDURES F inal Result * (ABNORMAL) Complete blood count (05/03/2024 6:05 AM EST) WBC 7.2 4.8 - 10.8 K/mcL LAB HEMETOLOGY METHOD 05/03/2024 7:13 AM EST [facility] RBC 3.20(L) 3.80 - 4.80 M/mcL LAB HEMETOLOGY METHOD 05/03/2024 7:13 AM EST [facility] Hemoglobin 10.5(L) 11.5 - 16.0 g/dL LAB HEMETOLOGY METHOD 05/03/2024 7:[address] [facility] Hematocrit 31.9(L) 35.0 - 47.0 % LAB HEMETOLOGY METHOD 05/03/2024 7:[address] [facility] MCV 99.4(H) 79.0 - 98.0 FL LAB HEMETOLOGY METHOD 05/03/2024 7:[address] [facility] MCH 32.7(H) 27.0 - 32.0 pcg LAB HEMETOLOGY METHOD 05/03/2024 7:[address] [facility] MCHC 32.9 32.0 - 37.0 g/dL LAB HEMETOLOGY METHOD 05/03/2024 7:[address] [facility] RDW 13.9 11.0 - 15.0 % LAB HEMETOLOGY METHOD 05/03/2024 7:[address] [facility] Platelets 186 130 - 400 K/mcL LAB HEMETOLOGY METHOD 05/03/2024 7:[address] [facility] MPV 10.8 7.0 - 11.0 FL LAB HEMETOLOGY METHOD 05/03/2024 7:[address] [facility] NRBC 0.0 <1.0 % LAB HEMETOLOGY METHOD 05/03/2024 7:[address] [facility] NRBC Absolute 0.00 <0.10 K/mcL LAB HEMETOLOGY METHOD 05/03/2024 7:[address] [facility] Blood Venous blood specimen / Unknown Venipuncture / Unknown 05/03/2024 6:05 AM EST 05/03/2024 6:47 AM EST us Moses Whyte MD LAB BLOOD ORDERABLE S Final Result [facility] [address] [place] [address], [place] [phone] * (ABNORMAL) Phosphorus (05/03/2024 6:05 AM EST) Phosphorus 2.2(L) 2.5 - 4.5 mg/dL LAB CHEMISTRY METHOD 05/03/2024 7:27 AM EST [facility] Blood Venous blood specimen / Unknown Venipuncture / Unknown 05/03/2024 6:05 AM EST 05/03/2024 6:48 AM EST us Moses Whyte MD LAB BLOOD ORDERABLE S Final Result Performing Organization Address City/[facility]/ZIP Co de Phone Number [facility] [address] [place] [address], * Magnesium (05/03/2024 6:05 AM EST) Only the most recent of3 resultswithin the time period is included. [facility] Magnesium 1.9 1.9 - 2.6 mg/dL LAB CHEMISTRY METHOD 05/03/2024 7:27 AM EST [facility] Blood Venous blood specimen / Unknown Venipuncture / Unknown 05/03/2024 6:05 AM EST 05/03/2024 6:48 AM EST us Moses Whyte MD LAB BLOOD ORDERABLE S Final Result [facility] [address] [place] [address], [place] [phone] * (ABNORMAL) Basic metabolic panel (05/03/2024 6:05 AM EST) Only the most recent of3 resultswithin the time period is included. Sodium 135 133 - 145 mmol/L LAB CHEMISTRY METHOD 05/03/2024 7:27 AM EST [facility] Potassium 3.7 3.5 - 5.5 mmol/L LAB CHEMISTRY METHOD 05/03/2024 7:[address] [facility] Chloride 103 96 - 110 mmol/L LAB CHEMISTRY METHOD 05/03/2024 7:[address] [facility] CO2 25 21 - 32 mmol/L LAB CHEMISTRY METHOD 05/03/2024 7:[address] [facility] Anion Gap 7 3 - 11 LAB CHEMISTRY METHOD 05/03/2024 7:[address] [facility] Glucose 107(H) 70 - 100 mg/dL LAB CHEMISTRY METHOD 05/03/2024 7:[address] [facility] BUN 17 5 - 25 mg/dL LAB CHEMISTRY METHOD 05/03/2024 7:[address] [facility] Creatinine 0.99 0.50 - 1.10 mg/dL LAB CHEMISTRY METHOD 05/03/2024 7:[address] [facility] eGFR 70 >=60 mL/min/1. 73m2 LAB CHEMISTRY METHOD 05/03/2024 7:[address] [facility] Comment:Calculation based on the??Chronic Kidney Disease Epidemiology Collaboration (CKD-EPI) equation refit??without adjustment for race. BUN/Creatinine Ratio 17.2 LAB CHEMISTRY METHOD 05/03/2024 7:[address] [facility] Calcium 8.8 8.5 - 10.5 mg/dL LAB CHEMISTRY METHOD 05/03/2024 7:[address] [facility] Blood Venous blood specimen / Unknown Venipuncture / Unknown 05/03/2024 6:05 AM EST 05/03/2024 6:48 AM EST us Moses Whyte MD LAB BLOOD ORDERABLE S Final Result [facility] [address] [place] [address], [place] [phone] * (ABNORMAL) CBC auto differential (05/02/2024 6:24 AM EST) Only the most recent of2 resultswithin the time period is included. [facility] Signature WBC 16.5(H) 4.8 - 10.8 K/mcL LAB HEMETOLOGY METHOD 05/02/2024 7:[address] [facility] RBC 3.20(L) 3.80 - 4.80 M/mcL LAB HEMETOLOGY METHOD 05/02/2024 7:[address] [facility] Hemoglobin 10.7(L) 11.5 - 16.0 g/dL LAB HEMETOLOGY METHOD 05/02/2024 7:[address] [facility] Hematocrit 32.0(L) 35.0 - 47.0 % LAB HEMETOLOGY METHOD 05/02/2024 7:[address] [facility] MCV 99.1(H) 79.0 - 98.0 FL LAB HEMETOLOGY METHOD 05/02/2024 7:[address] [facility] MCH 33.1(H) 27.0 - 32.0 pcg LAB HEMETOLOGY METHOD 05/02/2024 7:[address] [facility] MCHC 33.4 32.0 - 37.0 g/dL LAB HEMETOLOGY METHOD 05/02/2024 7:[address] [facility] RDW 14.1 11.0 - 15.0 % LAB HEMETOLOGY METHOD 05/02/2024 7:[address] [facility] Platelets 202 130 - 400 K/mcL LAB HEMETOLOGY METHOD 05/02/2024 7:[address] [facility] MPV 10.4 7.0 - 11.0 FL LAB HEMETOLOGY METHOD 05/02/2024 7:[address] [facility] NRBC 0.0 <1.0 % LAB HEMETOLOGY METHOD 05/02/2024 7:[address] [facility] NRBC Absolute 0.00 <0.10 K/mcL LAB HEMETOLOGY METHOD 05/02/2024 7:[address] [facility] Neutrophils Relative 86.7 % LAB HEMETOLOGY METHOD 05/02/2024 7:[address] [facility] Lymphocytes Relative 3.8 % LAB HEMETOLOGY METHOD 05/02/2024 7:[address] [facility] Monocytes Relative 8.5 % LAB HEMETOLOGY METHOD 05/02/2024 7:[address] [facility] Eosinophils Relative 0.2 % LAB HEMETOLOGY METHOD 05/02/2024 7:[address] [facility] Basophils Relative 0.3 % LAB HEMETOLOGY METHOD 05/02/2024 7:[address] [facility] Immature Granulocytes Relative 0.5 % LAB HEMETOLOGY METHOD 05/02/2024 7:[address] [facility] Neutrophils Absolute 14.28(H) 1.50 - 7.00 K/mcL LAB HEMETOLOGY METHOD 05/02/2024 7:[address] [facility] Lymphocytes Absolute 0.63(L) 1.00 - 5.00 K/mcL LAB HEMETOLOGY METHOD 05/02/2024 7:[address] [facility] Monocytes Absolute 1.40(H) 0.20 - 1.00 K/mcL LAB HEMETOLOGY METHOD 05/02/2024 7:[address] [facility] Eosinophils Absolute 0.03 0.00 - 0.50 K/mcL LAB HEMETOLOGY METHOD 05/02/2024 7:[address] [facility] Basophils Absolute 0.05 0.00 - 0.20 K/mcL LAB HEMETOLOGY METHOD 05/02/2024 7:[address] [facility] Immature Granulocytes Absolute 0.09(H) 0.00 - 0.03 K/mcL LAB HEMETOLOGY METHOD 05/02/2024 7:33 AM EST [facility] Blood Venous blood specimen / Unknown Venipuncture / Unknown 05/02/2024 6:24 AM EST 05/02/2024 6:35 AM EST Ezequiel Reeves MD LAB BLOOD ORDERABLES Final Result Performing Organization Address City/[facility]/ZIP Co de Phone Number [facility] [address] [place] [address], [place] [phone] * (ABNORMAL) Blood Culture, Peripheral Draw #1 (05/01/2024 10:35 PM EST) Only the most recent of2 resultswithin the time period is included. [facility] Signature Culture, Blood Klebsiella pneumoniae ssp pneumoniae(AA) NATALIA 05/04/2024 8:49 AM EST [facility] Comment: The organism value for this result has been updated. These results have been appended to the previously preliminary verified report. This is an edited result. Previous organism was Gram negative bacilli on 05/03/2024 at 1014 EST. Gram Stain Result Anaerobic bottle Gram negative bacilli(AA) 05/04/2024 8:49 AM EST [facility] Comment:This is an appended report. These results have been appended to a previously preliminary verified report. Blood Venous blood specimen / Unknown Venipuncture / Unknown 05/01/2024 10:35 PM EST 05/01/2024 10:51 PM EST Narrative [facility] - 05/04/2024 8:49 AM EST FOR SUSCEPTIBILITIES, REFER TO PREVIOUS CULTURE FROM 05/01/24 at 2231. us Lencho Hernandez MD LAB MICROBIOLOGY - GENERAL ORD ERABLES Final Result Performing Organization Address City/[facility]/ZIP Co de Phone Number [facility] [address] [place] [address], [place] [phone] * (ABNORMAL) Blood culture pathogens molecular study (05/01/2024 10:31 PM EST) Klebsiella pneumoniae group Detected (A) Not Detected LAB MICROBIOLOGY METHOD 05/02/2024 1:14 PM EST [facility] Blood Venous blood specimen / Unknown Venipuncture / Unknown 05/01/2024 10:31 PM EST 05/01/2024 10:51 PM EST us Lencho Hernandez MD LAB MICROBIOLOGY - GENERAL ORD ERABLES Final Result [facility] [address] [place] [address], [place] [phone] * (ABNORMAL) Urine culture (05/01/2024 9:04 PM EST) [facility] Culture, Urine >100,000 CFU/mL Klebsiella pneumoniae ssp pneumoniae(A) NATALIA 05/04/2024 7:37 AM EST [facility] Comment: This is an [...] pneumoniae Trimethoprim/Sulfamethoxazo le NATALIA >=320 ug/ml: Resistant Lencho Hernandez MD LAB MICROBIOLOGY - GENERAL ORD ERABLES Final Result [facility] [address] [place] [address], * (ABNORMAL) Urinalysis with reflex microscopic (05/01/2024 8:52 PM EST) Specific [place] Urine 1.015 1.003 - 1.030 LAB URINALYSIS - AUTOMATED METHOD 05/01/2024 9:35 PM EST [facility] pH, Urine 6.0 5.0 - 8.0 pH LAB URINALYSIS - AUTOMATED METHOD 05/01/2024 9:[address] [facility] Leukocytes, Urine Large(A) Negative LAB URINALYSIS - AUTOMATED METHOD 05/01/2024 9:[address] [facility] Nitrite, Urine Positive(A) Negative LAB URINALYSIS - AUTOMATED METHOD 05/01/2024 9:[address] [facility] Protein, Urine 100(A) <=Trace mg/dL LAB URINALYSIS - AUTOMATED METHOD 05/01/2024 9:[address] [facility] Glucose, Urine Negative Negative mg/dL LAB URINALYSIS - AUTOMATED METHOD 05/01/2024 9:[address] [facility] Ketones, Urine Negative Negative mg/dL LAB URINALYSIS - AUTOMATED METHOD 05/01/2024 9:[address] [facility] Urobilinogen , Urine 0.2 0.2 - 1.0 mg/dL LAB URINALYSIS - AUTOMATED METHOD 05/01/2024 9:[address] [facility] Bilirubin, Urine Negative Negative LAB URINALYSIS - AUTOMATED METHOD 05/01/2024 9:35 PM EST [facility] Blood, Urine Large(A) Negative LAB URINALYSIS - AUTOMATED METHOD 05/01/2024 9:[address] [facility] RBC, Urine 15.0(H) 0 - 4 /HPF LAB URINALYSIS - AUTOMATED METHOD 05/01/2024 9:[address] [facility] WBC, Urine 1,157.7(H) 0 - 4 /HPF LAB URINALYSIS - AUTOMATED METHOD 05/01/2024 9:[address] [facility] Squamous Epithelial, Urine 8 0 - 60 /LPF LAB URINALYSIS - AUTOMATED METHOD 05/01/2024 9:[address] [facility] Bacteria, Urine Many(A) Negative /HPF LAB URINALYSIS - AUTOMATED METHOD 05/01/2024 9:[address] [facility] Hyaline Casts, Urine 0.0 0 - 3 /LPF LAB URINALYSIS - AUTOMATED METHOD 05/01/2024 9:[address] [facility] Urine Urine specimen obtained by clean catch procedure / Unknown Non-blood Collection / Unknown 05/01/2024 8:52 PM EST 05/01/2024 9:14 PM EST us Lencho Hernandez MD LAB URINE ORDERABLES Final Res ult [facility] [address] [place] [address], [place] [phone] * XR Chest 2 Views (05/01/2024 7:34 PM EST) Anatomical Region Laterality Modality Body Radiographic Aniyah ging 05/02/2024 9:30 AM EST Impressions 05/02/2024 9:34 AM EST Hypoventilatory exam. ??No acute findings. -------- FINAL REPORT -------- Dictated By: Stefan Ambriz Dictated Date: 05/02/2024 09:30 ET Assigned Physician: Stfean Ambriz Reviewed and Electronically Signed By: Stefan Ambriz Signed Date: 05/02/2024 09:34 ET Workstation ID: [id number] Transcribed By: Self Edit Transcribed Date: 05/02/2024 [...] Signed Date: 05/02/2024 09:34 ET Workstation ID: [id number] Transcribed By: Self Edit Transcribed Date: 05/02/2024 09:30 ET Lencho Hernandez MD IMG XR PROCEDURES Final Result * Respiratory virus panel molecular study (05/01/2024 5:44 PM EST) Adenovirus Detection by PCR Not Detected Not Detected LAB MICROBIOLOGY METHOD 05/01/2024 6:55 PM EST [facility] Influenza A PCR Not Detected Not Detected LAB MICROBIOLOGY METHOD 05/01/2024 6:55 PM EST [facility] Influenza B PCR Not Detected Not Detected LAB MICROBIOLOGY METHOD 05/01/2024 6:55 PM EST [facility] Coronavirus 229E Not Detected Not Detected LAB MICROBIOLOGY METHOD 05/01/2024 6:55 PM EST [facility] Coronavirus HKU1 Not Detected Not Detected LAB MICROBIOLOGY METHOD 05/01/2024 6:[address] [facility] Coronavirus OC43 Not Detected Not Detected LAB MICROBIOLOGY METHOD 05/01/2024 6:[address] [facility] Coronavirus NL63 Not Detected Not Detected LAB MICROBIOLOGY METHOD 05/01/2024 6:55 PM EST [facility] Parainfluenza Virus 1 Not Detected Not Detected LAB MICROBIOLOGY METHOD 05/01/2024 6:[address] [facility] Parainfluenza Virus 2 Not Detected Not Detected LAB MICROBIOLOGY METHOD 05/01/2024 6:[address] [facility] Parainfluenza Virus 3 Not Detected Not Detected LAB MICROBIOLOGY METHOD 05/01/2024 6:[address] [facility] Parainfluenza Virus 4 Not Detected Not Detected LAB MICROBIOLOGY METHOD 05/01/2024 6:[address] [facility] RSV PCR Not Detected Not Detected LAB MICROBIOLOGY METHOD 05/01/2024 6:[address] [facility] Human Metapneumovirus A and B Not Detected Not Detected LAB MICROBIOLOGY METHOD 05/01/2024 6:[address] [facility] Rhinovirus/Entero virus Not Detected Not Detected LAB MICROBIOLOGY METHOD 05/01/2024 6:[address] [facility] Bordetella pertussis Not Detected Not Detected LAB MICROBIOLOGY METHOD 05/01/2024 6:55 PM EST [facility] Bordetella parapertussis Not Detected Not Detected LAB MICROBIOLOGY METHOD 05/01/2024 6:[address] [facility] Mycoplasma pneumo by PCR Not Detected Not Detected LAB MICROBIOLOGY METHOD 05/01/2024 6:[address] [facility] Chlamydia pneumoniae Not Detected Not Detected LAB MICROBIOLOGY METHOD 05/01/2024 6:55 PM EST [facility] SARS COV-2 Not Detected Not Detected LAB MICROBIOLOGY METHOD 05/01/2024 6:55 PM EST [facility] Swab Both anterior nares / Unknown Non-blood Collection / Unknown 05/01/2024 5:44 PM EST 05/01/2024 5:57 PM EST [facility] - 05/01/2024 6:55 PM EST Testing was performed using the [employer] Respiratory Pathogen PCR Assay. All results must [...] that are below the limit of detection. Lencho Hernandez MD LAB MICROBIOLOGY - GENERAL ORD ERABLES Final Result [facility] [address] [place] [address], [place] [phone] * Troponin I high sensitivity (05/01/2024 5:42 PM EST) [facility] High Sensitivity Troponin I 4 <=54 ng/L LAB CHEMISTRY METHOD 05/01/2024 6:27 PM EST [facility] Blood Venous blood specimen / Unknown Venipuncture / Unknown 05/01/2024 5:42 PM EST 05/01/2024 5:57 PM EST [facility] - 05/01/2024 6:27 PM EST High levels of biotin in samples may falsely decrease hsTroponin values. ??Use caution when interpreting hsTroponin results in patients taking biotin who exhibit renal impairment (eGFR <60) or in patients taking more than 20 mg/day of biotin. Lencho Hernandez MD LAB BLOOD ORDERABLES Final Res ult Performing Organization Address [facility]/ZIP Co de Phone Number [facility] [address] [place] [address], [place] [phone] * Thyroid stimulating hormone with reflex to free t4 and free t3 (TSH Reflex) (05/01/2024 5:42 PM EST) TSH 0.84 0.40 - 4.00 mcIU/mL LAB CHEMISTRY METHOD 05/01/2024 6:[address] [facility] Blood Venous blood specimen / Unknown Venipuncture / Unknown 05/01/2024 5:42 PM EST 05/01/2024 5:57 PM EST Lencho Hernandez MD LAB BLOOD ORDERABLES Final Res ult Performing Organization Address [facility]/ZIP Co de Phone Number [facility] [address] [place] [address], [place] [phone] * (ABNORMAL) Hepatic function panel (05/01/2024 5:42 PM EST) Total Protein 6.4 6.0 - 8.0 g/dL LAB CHEMISTRY METHOD 05/01/2024 6:[address] [facility] Albumin 3.4 3.2 - 5.0 g/dL LAB CHEMISTRY METHOD 05/01/2024 6:[address] [facility] Total Bilirubin 1.3 0.0 - 1.4 mg/dL LAB CHEMISTRY METHOD 05/01/2024 6:[address] [facility] Bilirubin, Direct 0.6(H) 0.0 - 0.3 mg/dL LAB CHEMISTRY METHOD 05/01/2024 6:[address] [facility] Bilirubin, Indirect 0.7 0.0 - 1.1 mg/dL LAB CHEMISTRY METHOD 05/01/2024 6:[address] [facility] ALT (SGPT) 53 10 - 60 unit/L LAB CHEMISTRY METHOD 05/01/2024 6:27 PM EST [facility] AST (SGOT) 37 10 - 42 unit/L LAB CHEMISTRY METHOD 05/01/2024 6:27 PM EST [facility] Alkaline Phosphatase 118 42 - 121 unit/L LAB CHEMISTRY METHOD 05/01/2024 6:27 PM EST [facility] Blood Venous blood specimen / Unknown Venipuncture / Unknown 05/01/2024 5:42 PM EST 05/01/2024 5:57 PM EST Lencho Hernandez MD LAB BLOOD ORDERABLES Final Res ult [facility] [address] [place] [address], [place] [phone] * ECG 12 lead (05/01/2024 5:33 PM EST) Ventricular Rate ECG 110 BPM GEMUSE Atrial Rate 110 BPM GEMUSE P-R Interval 128 ms GEMUSE QRS Duration 74 ms GEMUSE Q-T Interval 342 ms GEMUSE QTc 462 ms GEMUSE P Wave [place] 54 degrees GEMUSE R [place] 25 degrees GEMUSE T [place] 12 degrees GEMUSE ECG Interpretation Sinus tachycardia [...] Final Result from Last [address] [place] [address] [place] [id number] [place] [address] MEDICARE Member Subscriber Plan / Payer (Ef fective 2017-Present) Name:Addis Durant Relation to Subscriber:Self Name:Addis Durant Payer ID:[id number] Group ID:[id number] Type:Not on file Address: [place] [address] [address] [phone] Advance Directives Documents on File Type Date Recorded Patient Bell Person Expl anation Health Care Decision (hx) 01/15/2023 [...] currently active code status orders. Care Teams Second Grade Teacher Relationship Specialty Start Date End Date Deonte Carmona PA PCP - General Physician Housing Manager 05/01/24
--- OUTSIDE RECORDS SUMMARY | 2024-07-16 09:53 | XMS_ITS | Continuity of Care Document ---
Author Organization [place], [place] - [facility] Address [address] [place] [phone] Care Team Providers [facility] Name Role Phone HIM CCA Referring Provider DARRION BARNES Primary Care Provider Assessment Encounter Date Assessment Date Assessment LastModified by Organization Details LastModified Time 07/12/2024 07/12/2024 I provided real -time medical direction via phone for this encounter and was available for additional phone-based assistance as needed. I have reviewed and agree with the Assessment and Plan as documented by the Bottled Beverage Inspector. Patient given the opportunity to ask questions. Our service contacted for an assessment of: Urinary symptoms As per above, patient with approximately 24 hours of dysuria, difficulty emptying her bladder. Positive history of frequent urinary tract infections. Follows with urology. Denies fever, chills, abdominal pain, back pain, flank pain. Per community relations representative on the scene, Vital signs are stable [...] We discussed the need to seek care urgently/emergen tly in the setting of any new or worsening serious symptoms, particularly fever chills [email or web address] Not available 07/12/2024 17:35:25 Plan of Treatment Reminders Order Date Submit Date Provider Last Modified By Organization Details Last Modified Time Details Appointments None recorded. Lab urinalysis, dipstick 2024 025 [place] [facility], [address] [place] [address], [id number] 21:25:44 culture, urine 2024 025 [place] [facility] (Centralized Electronic Ordering - All Locations), Patient Can Go To The Location Of Their Choice, [id number] 10:07:40 Referral None recorded. Procedures None recorded. Surgeries None recorded. Imaging None recorded. Medication Orders sulfamethox azole 800 mg-trimetho prim 160 mg tablet 2024 [id number] [address] [place], [address], 5 17:32:32 sulfamethox azole 800 mg-trimetho prim 160 mg tablet 2024 025 [facility] #[id number], [address] [place], [address], 17:32:35 Patient TargetsNo targets recorded. Patient InstructionsNo instructions [...] Not available Not available Not available 12/26/2023 88150 4 RxNorm Not Available [facility] - production 5 13:48:13 6340 Ambien medicatio n Not available Not available Not available 12/26/2023 03610 5 RxNorm Not Available [facility] - production 5 13:48:13 6341 trazodone medicatio n Not available Not available Not available 12/26/2023 61521 RxNorm Not Available [facility] - production 4 [...] SNOMED-CT Code Diagnosis ICD10 Code Diagnosis Note [id number] Meli Crawford MD Main - [facility] [address] [place] [phone] 07/12/2024 17:28:39 07/12/2024 18:11:12 Urinary system finding 862717785 R39.9 Health Concerns Section Related Observation LastModified by Organization Detai ls LastModified Time None Recorded Concern Status LastModified by Organization Details LastModified Time None Recorded Payers Encounter Date Sequence Insurance Name Policy Number Policy Oconnor Covered Member ID Oconnor Member ID Guarantor Name 07/12/2024 1 [facility] - DOS ON OR AFTER 2022 - DUAL ELIGIBLE - SENIOR LIVING OPTIONS AND ONE CARE (MEDICARE REPLACEMENT/ADV ANTAGE - HMO) Addis Durant [id number] Addis Durant Notes Date Note Type Note Provider Name and Address Organization Details Recorded Time 07/12/2024 text/html [facility] Nurse Triage Notes (Peter [...] Pain, Chronic Pain, Cholecystectomy PMH Reviewed at 07/12/2024: Allergies Reviewed at 07/12/2024:35 Comments: Additional PMH: Cerebral Palsy Talent Development Manager verified the patient's name//address and phone number. [...] emergency treatment if needed -Ambar Cortes RN Bottled Beverage Inspector Organization Information for Adria Castillo [employer] Legal Name: [employer]? Address: [address] [place] [address], Inseam Trimmer: Keyon Wise MD CLIA No.: [id number] Bottled Beverage Inspector POC Test Results from Adria Castillo Urine Dipstick (16:45:00) Urine leukocytes: 500+++ VIRIDIANA [...] ...................... ...................... ...................... ...................... ...................... ...................... ......... Bottled Beverage Inspector Note From Adria Castillo: Encountered patient, conscious [...] difficult urination. UA obtained, results uploaded for [facility] via [employer]. Skin warm, dry and of appropriate color for ethnicity. Head and neck free of trauma edema.-JVD. Breath sounds present clear and equal bilaterally. Abdomen soft non-tender and non-distended. Extremities of trauma and edema. The contacted: orders for urine culture obtained, to be delivered to the lab after call. One dose of PO Bactrim administered, [facility] to write prescription for further treatment at patient? s pharmacy of choice. Patient advised to monitor for signs of sepsis, including fevers, increased difficulty urinating or changes in mentation. Patient verbalizes understanding and is comfortable with the plan of remaining at home. [facility] Lab Orders: urinalysis, dipstick: Performed culture, urine: Performed [facility] Medication Orders: sulfamethoxazole 800 mg-trimethoprim 160 mg tablet: Administered ...................... ...................... ...................... ...................... ...................... ...................... ......... [facility] Consulted: Meli Crawford ...................... ...................... ...................... ...................... ...................... ...................... ......... Disposition: Fulfilled Meli Crawford MD [address] [facility],[address], [place], [phone], [employer] 07/12/2024 17:50:06 OBGyn Episode No OBEpisode recorded.
== END 2024-07-16 11:35 | disposition home or self-care (01) ==
PROVIDERS: PCP Physician Assistant; Visit Provider Advanced Practice Midwife
DX: Z01.419 Encounter for gynecological examination (general) (routine) without abnormal findings (principal); L30.8 Other specified dermatitis; G80.9 Cerebral palsy, unspecified; Z97.5 Presence of (intrauterine) contraceptive device
CPT/HCPCS: 99386; 99459

== ENCOUNTER 2024-07-16 11:58 | Outpatient (REF) | payer OTHER, SELFPAY ==
[2024-07-17 02:50] LABS: CT PCR NOT DETECTED (Not Detect.); NG PCR NOT DETECTED (Not Detect.)
[2024-07-17 11:37] LABS: Bacterial Vaginosis PCR NEGATIVE (Negative); Candida Group PCR DETECTED (Not Detect); Candida glab krusei PCR NOT DETECTED (Not Detect); Trichomonas vaginalis PCR NOT DETECTED (Not Detect)
[2024-07-24 15:12] LABS: HPV Genotype 16 Negative (Negative); HPV Genotype 18 Negative (Negative); HPV High Risk Negative (Negative)
== END 2024-07-16 11:59 | disposition home or self-care (01) ==
LOC: HO.LNP 11:58
PROVIDERS: Visit Provider Advanced Practice Midwife
DX: Z01.419 Encounter for gynecological examination (general) (routine) without abnormal findings (principal)
CPT/HCPCS: 36415; 81515; 86780; 86803; 87340; 87389; 87491; 87591; 87626; 88175; 99386; 99459

== ENCOUNTER 2024-11-05 13:30 | Outpatient (AMB) | payer OTHER, SELFPAY ==
[2024-11-05 13:33] VITALS: BP 140/76; PULSE 93; RESP 18; TEMP 35.5; O2SAT 94; BMI 46.4
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
== END 2024-11-05 16:15 | disposition home or self-care (01) ==
LOC: HO.HMCH 13:30
PROVIDERS: PCP Physician Assistant
DX: S93.402A Sprain of unspecified ligament of left ankle, initial encounter (principal); H57.89 Other specified disorders of eye and adnexa

== ENCOUNTER → 2024-11-05 13:30 | Outpatient (BNVA) | payer OTHER, SELFPAY | PROVIDERS: PCP Physician Assistant | DX: S93.402D Sprain of unspecified ligament of left ankle, subsequent encounter (principal); H57.89 Other specified disorders of eye and adnexa; G80.9 Cerebral palsy, unspecified; G43.909 Migraine, unspecified, not intractable, without status migrainosus; X58.XXXD Exposure to other specified factors, subsequent encounter; Z99.3 Dependence on wheelchair | CPT/HCPCS: 96127; 99212 ==

== ENCOUNTER 2025-01-17 08:12 | Outpatient (AMB) | payer OTHER, SELFPAY ==
[2025-01-17 08:27] VITALS: BP 130/70; PULSE 117; TEMP 36.2; O2SAT 97
--- NOTE | 2025-01-17 08:27 | MHC.PC.OV ---
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 [employer] Groom Required: No Real Time Trader: Present Accompanied by: SHEET [employer] WORK[employer]INTENA[employer]CE Allergies trazodone Allergy (Unknown, Verified 01/17/25 08:41) hives zolmitriptan (Zomig) Allergy (Unknown, Verified 01/17/25 08:41) hives zolpidem (Ambien) Allergy (Unknown, Verified 01/17/25 08:41) hives Medication List - Last Reconciled 01/17/25 by Deonte Carmona PA-C acetaminophen ER 1,300 mg (2 x 650 mg) PO Q12H PRN 90 days [adult pull ups As directed] atorvastatin 40 mg PO DAILY [BARIATRIC COMMODE As directed] [BILATERAL LOWER EXTREMITY AFO As directed] bisacodyl 10 mg [place] DAILY PRN bymlbzhlad-uspovogxqjiaa-yxsb 50-325-40 mg 1 tab PO Q6H PRN cholecalciferol (vitamin D3) (Vitamin D3) 50 mcg PO DAILY desmopressin 0.1 mg PO BID 90 days [disposable bedpads As directed] disposable gloves As directed disposable gloves As directed docusate sodium (Colace) 100 mg PO BID 30 days doxepin 75 mg PO BID [Drop arm bed side commode As directed] famotidine 40 mg PO BEDTIME ferrous sulfate 325 mg PO DAILY 90 days fluconazole 150 mg PO Q3D 2 doses Gait belt As directed Gait belt As directed ibuprofen 800 mg PO Q8H PRN 15 days incontinence pad, liner, disp As directed [incontinence wipes As directed] [incontinence wipes As directed] levonorgestrel (Mirena) intrauterine levothyroxine 75 mcg PO 6XW lidocaine 5% (Lidoderm) 1 patch topical DAILY meclizine 25 mg PO DAILY PRN 14 days methylcellulose (laxative) (Fiber Therapy (methylcellulose)) 500 mg PO TID miconazole nitrate 2% 1 appl topical BID miconazole nitrate 2% (Monistat 7) 1 appful vaginal BEDTIME 7 days mirabegron ER (Myrbetriq) 25 mg PO DAILY miscellaneous medical supply 1 ea miscellaneous BID 90 days miscellaneous medical supply 1 ea miscellaneous DAILY 99 days omeprazole 40 mg PO DAILY oxycodone 5 mg PO TID PRN prednisone 40 mg PO DAILY pregabalin 200 mg PO BID 30 days quetiapine 50 mg PO DAILY quetiapine 200 mg PO DAILY [reusable underpads 36x54 As directed] sodium,potassium,mag sulfates 17.5-3.13-1.6 gram (Suprep Bowel Prep Kit) DILUTE; drink full amount early evening before AND next morning at least 2 hr before procedure; follow w 960 mL water PO temazepam 15 mg PO BEDTIME 30 days tizanidine 4 mg PO BID 90 days tramadol 50 mg PO BID 30 days valacyclovir (Valtrex) 1,000 mg PO DAILY 90 days valacyclovir (Valtrex) 500 mg PO DAILY 90 days Held on 05/26/24. Instructions: Doctor's Order venlafaxine ER 150 mg PO DAILY 90 days vitamin B complex (B Complex-Vitamin B12 tablet) 1 tab PO DAILY walker need for regular walker walker As directed [WHEELCHAIR GEL CUSHION SEAT As directed] [wheelchair- manual As directed] Tobacco use date assessed: 01/17/25 Dental Screening Dental Screen Date: 11/05/24 HPI Ear Wax, discuss SHEET [employer] WORKER MAINTENANCE hours HPI Details Patient is a 49 year-old female here today for follow-up visit. . 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 A biopsy has been performed, and she is awaiting further evaluation. The tumor has not responded to prednisone treatment, raising concerns about its nature. She reports she will need surgery for biopsy in [place] in near future. ? .. ? 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 She reports she needs more SHEET MET[employer] WORKER MAINTENANCE hours help her with her activities of daily living as she seemingly needs more help with transferring in and out of chair and going to the bathroom. She does admit she needs more SHEET MET[employer] WORKER MAINTENANCE hours particularly at night. Patient currently uses tramadol and? tizanidine treatment her pains and spasticity secondary to cerebral palsy.? She reports this current regime does manage her pain well. ? ... ? .. ? Hypothyroidism : Is followed by endocrinology and had a recent increase in her levothyroxine to 75 mcg.? Most recent TSH stable2. ?Also patient does have diabetes insipidus to which she takes desmopressin and has been stable. ? .. ? Depression: Patient does see a therapist in [facility], though has lost follow-up with her med provider and gets all of her mental health medications through her PCP. .. Recurrent UTI: Patient is followed by Urology and was previously given a suppressive antibiotic treatment for recurrent UTI with cephalexin 500 daily. She did not have any UTIs during that 3 months band. Unclear for urination issues are related to a recurrent UTI or uncontrolled diabetes insipidus .. Diabetes insipidus: Continues on desmopressin 0.1 mg twice a day. She does admit to being thirsty and urinating a lot in his unclear if this is related to recurrent UTI or uncontrolled diabetes insipidus. She has not been able to follow up with her assistant grocery until May of 2025. PLAN : In an effort to help her with a urinary frequency Will increase her desmopressin 0.2 mg twice a day ? [facility] Medical History (Updated 01/17/25 @ 09:01 by Deonte Carmona PA-C) Pyelonephritis Herpes simplex Depression Anxiety Diabetes insipidus Cerebral palsy Surgical History History of surgery on lower extremity Hx of appendectomy Family History Father No problems noted. Mother HTN (hypertension) Social History Household Members: None Housing: Apartment Alcohol intake: never Patient Tobacco Use Status: Never used Tobacco e-Cigarette/Vaping Use: Never Used Second Hand Smoke Exposure: No service: No Current occupational status: disabled Current occupational exposures/hazards: No Sexual orientation: Straight/Heterosexual Cognitive needs: Yes (wheel chair ) Hearing needs: No Vision needs: Yes Questionnaire PHQ-9 Over the last 2 weeks, how often have you been bothered by any of the following problems? 1. Little interest or pleasure in doing things: more than half the days 2. Feeling down, depressed, or hopeless: more than half the days 3. Trouble falling or staying asleep, or sleeping too much: more than half the days 4. Feeling tired or having little energy: more than half the days 5. Poor appetite or overeating: more than half the days 6. Feeling bad about yourself - or that you are a failure or have let yourself or your family down: more than half the days 7. Trouble concentrating on things, such as reading the newspaper or watching television: more than half the days 8. Moving or speaking so slowly that other people could have noticed. Or the opposite - being so fidgety or restless that you have been moving around a lot more than usual: more than half the days 9. Thoughts that you would be better off or of hurting yourself in some way: not at all Total score: 16 Depression Screening Interpretation: Positive Depression Screening Done: Yes 73095 - PHQ-9 Billing: Yes Source: Developed by Drs. Clayton Meneses, Isabel Ponce, Shailesh Bolanos and colleagues, with an educational josé manuel from [employer]. Thrive Questionnaire Date Thrive assessed: 01/17/25 I am a: Patient What is your living situation today?: I choose not to answer this question THRIVE Score: 0 ARMANDO-7 AMB Questionnaire ARMANDO-7 Date ARMANDO - 7 assessed: 11/05/24 Source: Developed by Drs. Clayton Meneses, Isabel Ponce, Shailesh Bolanos and colleagues, with an educational josé manuel from [employer]. Review of Systems Const Denies headache(s) Eyes Denies loss of vision ENT Denies vertigo, Denies dizziness, Denies headache(s) and Denies sore throat Card Denies chest pain, Denies leg edema and Denies lightheadedness Resp Denies cough, Denies hemoptysis and Denies wheezing GI Denies abdominal pain, Denies melena, Denies constipation, Denies diarrhea and Denies vomiting Denies urinary frequency, Reports nocturia, Denies dysuria and Reports urinary urgency Musc Denies arthralgias, Denies joint swelling, Denies numbness and Denies tingling Neuro Denies Abnormal speech present, Denies behavioral changes, Denies vertigo, Denies dizziness, Denies headache(s), Denies loss of vision, Denies memory loss, Denies numbness and Denies tingling Psych Denies anxiety, Denies behavioral changes, Denies depression, Denies memory loss and Denies panic attacks Landen/Lymph Denies easy bleeding and Denies easy bruising Aller/Immun Denies wheezing Physical exam (Primary Care) Vital Signs: Last Vital Signs Temp 97.1 F 01/17/25 08:27 Pulse 117 H 01/17/25 08:27 BP 130/70 01/17/25 08:27 Pulse Ox 97 01/17/25 08:27 Oxygen Delivery Method Room Air 01/17/25 08:27 Tobacco/Smoking Status: Tobacco use Status Tobacco use date assessed 01/17/25 01/17/25 08:37 Patient Tobacco Use Status Never used Tobacco 01/17/25 08:37 e-Cigarette/Vaping Use Never Used 01/17/25 08:37 PHQ-9: PHQ-9 Score PHQ-9: Total score 16 01/17/25 08:42 Depression Screening Interpretation: Positive Thrive Assessment: Date of Thrive Assessment Date Thrive assessed 01/17/25 01/17/25 08:37 Const Other: Patient sitting comfortably wheelchair General: healthy appearing, no acute distress, alert and awake Nutritional Appearance: well nourished Orientation/consciousness: oriented to person, oriented to place and oriented to time HENMT Ears: TM's normal bilaterally General nose exam: Normal nasal mucous membranes and turbinates present Eyes Conjunctivae: conjunctivae normal Sclerae: sclerae normal Pupils: Equal, round and reactive pupils present Neck Neck: Yes no lymphadenopathy and Yes no JVD Thyroid: Thyroid normal Carotids: no bruits Resp Effort & Inspection: normal respiratory effort and not tachypneic Auscultation: no crackles, no rales, no rhonchi and no wheezes Cardio Rate: regular rate Rhythm: regular rhythm Heart sounds: no murmurs and normal S1 and S2 GI Palpation (GI): Soft to palpation, nontender, no hepatomegaly and no splenomegaly Auscultation: normal bowel sounds Skin General skin exam: no rashes or lesions noted and dry skin Neuro General: oriented to person, oriented to place and oriented to time Cranial nerves: Yes Equal, round and reactive pupils present Speech: No Abnormal speech present Gait exam (Neuro): Normal gait present Motor exam (neuro): no tremor noted Extrem Right upper extremity: full ROM Left upper extremity: full ROM Right lower extremity: full ROM; no edema Left lower extremity: full ROM; no edema Psych Mental Status: mental status grossly normal Speech and movement: Normal speech and movement present Affect: normal affect Attitude: cooperative Thought process: Normal thought process present Office Procedures Cerumen Removal From which ear canal was the cerumen removed: bilateral Removal: irrigation Notes: patient tolerated procedure well [id number] Irrigation/Lavage Coding Level of Care Code Est Pt Level 4 (84699) Diagnoses Cerebral palsy, unspecified type G80.9 Cerebral palsy type: unspecified type Recurrent UTI N39.0 Mixed hyperlipidemia E78.2 Hyperlipidemia type: mixed hyperlipidemia Acquired hypothyroidism E03.9 Hypothyroidism type: acquired Diabetes insipidus E23.2 CPT Codes Office Procedure - CPT: 60353-Jws Irrigation/Lavage ([id number]) Additional Codes PHQ-9 - 60783 - PHQ-9 Billing: Yes ([id number]) Assessment & Plan Assessment & Plan (1) Cerebral palsy: Comment: W/C;07/16/24-spasticity prevents opening of legs for full lead designer exam. pap done w difficulty as well as sti screens. mirena string briefly glimpsed in cervix. Code(s): G80.9 - Cerebral palsy, unspecified Category: Medical Qualifiers: Cerebral palsy type: unspecified type Qualified Code(s): G80.9 - Cerebral palsy, unspecified Plan: Patient is wheelchair dependent. She does have SHEET MET[employer] WORKER MAINTENANCE services on a daily basis. Management of muscle spasticity and chronic pain due to cerebral palsy includes the use of tizanidine and tramadol as needed. 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 (2) Recurrent UTI: Code(s): N39.0 - Urinary tract infection, site not specified Category: Medical Plan: As per HPI For the recurrent urinary tract infections. Consideration of a long-term suppressive antibiotic therapy may be necessary if infections persist. (3) HLD (hyperlipidemia): Code(s): E78.5 - Hyperlipidemia, unspecified Category: Medical Qualifiers: Hyperlipidemia type: mixed hyperlipidemia Qualified Code(s): E78.2 - Mixed hyperlipidemia Plan: Patient continues with the use of statin therapy. Goal LDL to remain below 130 (4) Hypothyroid: Code(s): E03.9 - Hypothyroidism, unspecified Category: Medical Qualifiers: Hypothyroidism type: acquired Qualified Code(s): E03.9 - Hypothyroidism, unspecified Plan: Patient followed by assistant grocery in [place]. Most recent TSH has been stable. She continues with levothyroxine 75 mcg daily. (5) Diabetes insipidus: Code(s): E23.2 - Diabetes insipidus Category: Medical Plan: The plan for managing the patient's diabetes insipidus includes increasing the dose of desmopressin to 0.2 mg twice daily to help control her symptoms of frequent urination and thirst. Further evaluation by an assistant grocery is recommended to assess the impact of the tumor on the pituitary gland and consider alternative treatments such as a nasal spray formulation. Orders: Orders TSH reflex Free T4 Today E03.9 - Hypothyroidism, unspecified Complete Blood Count no Diff Today Z13.1 - Encounter for screening for diabetes mellitus Comprehensive [place]. Panel Fast Today Z13.1 - Encounter for screening for diabetes mellitus UA CC w/rflx Micro + Cult Today R30.0 - Dysuria, R32 - Unspecified urinary incontinence Vitamin B12 and Folate Today E53.8 - Deficiency of other specified B group vitamins Lipid Panel Today E78.2 - Mixed hyperlipidemia Medications: New desmopressin 0.2 mg PO BID 180 tabs 1RF 90 days E23.2 - Diabetes insipidus oxycodone 5 mg PO TID PRN 12 tabs 0RF pain 4 days R25.2 - Cramp and spasm On Hold desmopressin Hold Comment: Doctor's Order 0.1 mg PO BID 90 days 180 tabs 2RF E23.2 - Diabetes insipidus
--- OUTSIDE RECORDS SUMMARY | 2025-01-17 08:28 | XMS_ITS | Continuity of Care Document ---
Author Name [facility], Medical Address [address] [place] [id number] Organization Unknown Address [address] [place] [address] Medications No known medications Problems No known problems
--- OUTSIDE RECORDS SUMMARY | 2025-01-17 08:28 | XMS_ITS | Continuity of Care Document ---
Author Name [facility], Medical Address [address] [place] [id number] Organization Unknown Address [address] [place], [place] [id number] Medications No known medications Problems No known problems
--- OUTSIDE RECORDS SUMMARY | 2025-01-17 08:28 | XMS_ITS | Clinical Summary ---
Author Organization [facility] Address [address] [place] [address] Phone Care Team Providers Care Gang Vibrator Operator Name Role Phone Deonte Carmona Primary [...] times a day if needed (breakthrough pain). 10/27/19 16 Active valACYclovir (VALTREX) 500 [...] by mouth at bedtime. 09/26/19 19 Active naloxone (NARCAN) 4 mg/0.1 mL nasal spray Administer 1 each (4 mg total) into affected nostril(s) if needed for opioid reversal. Give 4 mg (1 spray) into one nostril. May repeat every 2-3 minutes if needed, alternating nostrils, until medical assistance becomes available. 2 each 01/10/20 25 026 Active cephalexin (KEFLEX) 500 mg capsule Take 1 capsule (500 mg total) by mouth 4 (four) times a day for 7 days. 28 each 12/14/19 25 025 predniSONE 10 mg tablets,dose pack Take 6 tablets (60 mg total) by mouth 1 (one) time each day for 3 days, THEN 4 tablets (40 mg total) 1 (one) time each day for 3 days, THEN 2 tablets (20 mg total) 1 (one) time each day for 3 days, THEN 1 tablet (10 mg total) 1 (one) time each day for 3 days. 39 tablet 12/14/19 25 025 amLODIPine (NORVASC) 5 mg tablet Take 1 tablet (5 mg total) by mouth 1 (one) time each day. 30 each 01/10/20 25 025 Discontinued oxyCODONE (OXY-IR) 5 mg immediate release capsule Take 2 capsules (10 mg total) by mouth 3 (three) times a day if needed for severe pain for up to 2 days. Max Daily Amount: 30 mg 12 capsule 01/10/20 25 025 Active Problems Problem Noted Date Diagnosed Date HTN (hypertension) 09/21/2024 Depression 09/21/2024 Pyelonephritis 05/05/2024 Bacteremia 05/05/2024 Acute cystitis without hematuria 05/01/2024 Encounters Date Type Department Care Team Description 01/11/2025 Results Follow-Up [facility] [address] [place] [phone] Clare Chahal RN 01/09/2025 1:11 PM EDT - 01/09/2025 9:14 PM EDT Emergency [facility] [address] [place] [phone] Arcenio Platt MD Mersier, Jasmine, DO Chronic low back pain without sciatica, unspecified back pain laterality (Primary Dx) Discharge Disposition: Home or Self Care 12/13/2024 4:08 PM EDT - 12/13/2024 11:36 PM EDT Emergency [facility] [address] [place] [phone] Toro Johnson MD Nonintractable headache, unspecified chronicity pattern, unspecified headache type (Primary Dx); Orbital myositis of left side; Recurrent UTI Discharge Disposition: Home or Self Care 11/03/2024 3:09 PM EDT - 11/03/2024 9:28 PM EDT Emergency [facility] [address] [place] [phone] Lubna Bach MD Other migraine without status migrainosus, not intractable (Primary Dx); Chemosis of left conjunctiva Discharge Disposition: Home or Self Care from Last 3 Months Surgical History Surgery Date Site/Laterality Comments APPENDECTOMY OTHER SURGICAL HISTORY Transsphenoidal hypophysectomy OTHER SURGICAL HISTORY Multiple surgeries at [facility] related to cerebral palsy Medical History Medical History Date Comments Diabetes mellitus (CMS/HCC V24, [facility] V28) Hypertension Depression C[place]bral [place] [place], [facility] V28) Diabetes insipidus [place] [place]) Hypothyroidism Hyperlipidemia Migraines Anxiety Chronic anemia GERD (gastroesophageal reflux disease) Insomnia Social History Tobacco Use Types Packs/Day Years Used Date Smoking Tobacco: Never Smokeless Tobacco: Never Tobacco Cessation:Counseling Given: Not Answered Alcohol Use Standard Drinks/Week Comments Never 0 (1 standard drink = 0.6 oz pur e alcohol) Interpersonal Safety Answer Date Record ed Physical Abuse Unrecognized value 05/02/2024 Verbal Abuse Unrecognized value 05/02/2024 Comments Unknown Sex and Gender Information Value Date Recorded Sex Assigned at Female 05/01/2024 5:14 PM EST Legal Sex Female 5:08 PM EST Gender Identity Female 05/01/2024 5:14 PM EST Sexual Orientation Not on file Obstetrics History Last Filed Vital Signs Vital Sign Reading Time Taken Comments Blood Pressure 130/87 01/09/2025 7:00 PM EDT Pulse 80 01/09/2025 7:00 PM EDT Temperature 37.1 C (98.8 F) 01/09/2025 1:28 PM EDT Respiratory Rate 16 01/09/2025 7:00 PM EDT Oxygen Saturation 96% 01/09/2025 7:00 PM EDT Inhaled Oxygen Concentration - - Weight 95.3 kg (210 lb) 01/09/2025 1:28 PM EDT Height 142.2 cm (4' 8 ) 01/09/2025 1:28 PM EDT Body Mass Index 47.08 01/09/2025 1:28 PM EDT Plan of Treatment Health Maintenance Due Date Last Done Comments Breast Cancer Screening 1973 Colorectal Cancer Screening: Colonoscopy 1973 Hepatitis B Vaccines (1 of 3 - 19+ 3-dose series) 1992 Cervical Cancer Screening: Pap Smear 1994 Pneumococcal Vaccine: 50+ Years (2 of 2 - PCV) 10/11/2021 10/11/2020, 02/01/2011 Cholesterol Screening (Lipid Panel) 02/27/2022 HIV Screening 02/27/2022 Hepatitis C Screening 02/27/2022 Medicare Annual Wellness Visit 02/27/2022 Social Influencers of Health Screening 02/27/2022 RSV Immunization Adult Patients (1 - Risk 50-74 years 1-dose series) 09/25/2023 Zoster Vaccines (1 of 2) 09/25/2023 Depression Screening 03/31/2024 COVID-19 Vaccine (3 - season) 2024 02/14/2021, 07/31/2020 Influenza Vaccine (#1) 2024 , 02/12/2023, 12/15/2021, Additional history exists Hypertension/CHF/CAD Annual BMP Blood Test 01/09/2026 01/09/2025, 12/13/2024, 05/03/2024, Additional history exists DTaP,Tdap,and Td Vaccines (2 - Td or Tdap) 03/11/2029 03/11/2019 HIB Vaccines Aged Out No longer eligi [...] Procedure Name Priority Date/Time Associated Diagnosis Comments CT LUMBAR SPINE WO CONTRAST STAT 01/09/2025 3:[address] THORACIC SPINE WO CONTRAST STAT 01/09/2025 3:26 PM EDT CBC WITH AUTO DIFFERENTIAL STAT 01/09/2025 3:18 PM EDT CBC AND DIFFERENTIAL STAT 01/09/2025 3:18 PM EDT COMPREHENSIVE METABOLIC PANEL STAT 01/09/2025 3:18 PM EDT VARELA URINE CULTURE TUBE STAT 01/09/2025 2:50 PM EDT URINALYSIS WITH REFLEX MICROSCOPIC AND CULTURE STAT 01/09/2025 2:50 PM EDT URINALYSIS WITH REFLEX MICROSCOPIC AND CULTURE STAT 01/09/2025 2:50 PM EDT CULTURE URINE STAT 01/09/2025 2:50 PM EDT CBC WITH AUTO DIFFERENTIAL STAT 12/13/2024 9:04 PM EDT CBC AND DIFFERENTIAL STAT 12/13/2024 9:04 PM EDT URINALYSIS WITH REFLEX MICROSCOPIC STAT 12/13/2024 8:53 PM EDT URINALYSIS WITH REFLEX MICROSCOPIC STAT 12/13/2024 8:53 PM EDT COMPREHENSIVE METABOLIC PANEL STAT 12/13/2024 6:00 PM EDT from Last 3 Months Results * CT Lumbar Spine wo Contrast (01/09/2025 3:26 PM EDT) Anatomical Region Laterality Modality Spine, L-spine Computed Tomogra phy 01/09/2025 4:11 PM EDT Impressions 01/09/2025 4:16 PM EDT Multilevel degenerative changes including osteophytosis. No acute fracture, subluxation or soft tissue swelling -------- FINAL REPORT -------- Dictated By: Lj Ivey Dictated Date: 01/09/2025 16:11 ET Assigned Physician: Lj Ivey Reviewed and Electronically Signed By: Lj Ivey Signed Date: 01/09/2025 16:16 ET Workstation ID: [id number] Transcribed By: Self Edit Transcribed Date: 01/09/2025 16:11 ET Narrative 01/09/2025 4:16 PM EDT INDICATION: Back pain TECHNIQUE: Noncontrast CT scan of the lumbar spine was obtained. Scanner: [employer] 64 slice VCT Dose reduction technique: ASIR (Adaptive statistical iterative reconstruction) and/or AEC (automated exposure control) Dose: total exam DLP 3094 mGY per cm COMPARISON: No prior lumbar CT studies available for comparison. CT scan of the abdomen and pelvis from May 03, 2024 reviewed. FINDINGS: Vertebral bodies are normal in size and shape. Disc spaces are fairly well-maintained. Multiple anterior and marginal osteophytes from T12 to S1. No compression fracture or subluxation. No focal lytic or sclerotic lesions. No bony acquired significant central canal stenosis or neural foramina narrowing. Stimulator device noted within the right S3 neural foramen. No paraspinal soft tissue swelling. Bilateral renal calcifications with stones measuring up to 4 mm within the lower poles. Both kidneys are mildly lobulated. No hydronephrosis or hydroureter. Unopacified aorta normal in course and caliber. No retroperitoneal lymphadenopathy. Procedure Note Lj Ivey MD - 01/09/2025 INDICATION: Back pain TECHNIQUE: Noncontrast CT scan of the lumbar spine was obtained. Scanner: [employer] 64 slice VCT Dose reduction technique: ASIR (Adaptive statistical iterativereconstruction) and/or AEC (automated exposure control) Dose: total exam DLP 3094 mGY per cm COMPARISON: No prior lumbar CT studies available for comparison. CT scanof the abdomen and pelvis from May 03, 2024 reviewed. FINDINGS: Vertebral bodies are normal in size and shape. Disc spaces are fairlywell- maintained. Multiple anterior and marginal osteophytes from T12 toS1. No compression fracture or subluxation. No focal lytic or scleroticlesions. No bony acquired significant central canal stenosis or neural foraminanarrowing. Stimulator device noted within the right S3 neural foramen. No paraspinal soft tissue swelling. Bilateral renal calcifications with stones measuring up to 4 mm within thelower poles. Both kidneys are mildly lobulated. No hydronephrosis orhydroureter. Unopacified aorta normal in course and caliber. No retroperitoneallymphadenopathy. IMPRESSION: Multilevel degenerative changes including osteophytosis. No acutefracture, subluxation or soft tissue swelling -------- FINAL REPORT -------- Dictated By: Lj Ivey Dictated Date: 01/09/2025 16:11 ET Assigned Physician: Lj Ivey Reviewed and Electronically Signed By: Lj Ivey Signed Date: 01/09/2025 16:16 ET Workstation ID: [id number] Transcribed By: Self Edit Transcribed Date: 01/09/2025 16:11 ET Arcenio Platt MD IM CT PROCEDURES Final Result * CT Thoracic Spine wo Contrast (01/09/2025 3:26 PM EDT) Anatomical Region Laterality Modality Spine, T-spine Computed Tomogra phy 01/09/2025 3:57 PM EDT Impressions 01/09/2025 4:11 PM EDT Degenerative changes without acute fracture, subluxation or soft tissue swelling. -------- FINAL REPORT -------- Dictated By: Lj Ivey Dictated Date: 01/09/2025 15:57 ET Assigned Physician: Lj Ivey Reviewed and Electronically Signed By: Lj Ivey Signed Date: 01/09/2025 16:11 ET Workstation ID: [id number] Transcribed By: Self Edit Transcribed Date: 01/09/2025 15:58 ET Narrative 01/09/2025 4:11 PM EDT INDICATION: Back pain TECHNIQUE: Noncontrast CT scan of the thoracic spine was obtained. Scanner: [employer] 64 slice VCT Dose reduction technique: ASIR (Adaptive statistical iterative reconstruction) and/or AEC (automated exposure control) Dose: total exam DLP 3094 mGY per cm COMPARISON: No prior studies available for comparison. FINDINGS: Multilevel degenerative changes with disc space narrowing and osteophyte formation. No acute fracture or subluxation. No lytic or sclerotic lesions. No paraspinal soft tissue swelling or gas formation. No discrete lytic or sclerotic lesion. Bony fusion noted at the T10-11 level. No significant bony acquired central canal stenosis or neural foramina narrowing. Underlying lung mercedes are clear. No infiltrates or effusions. Tiny bilateral nonobstructing renal calculi measuring 1 to 2 mm. Lobulated renal upper poles bilaterally. Procedure Note Loni, Parshant, MD - 01/09/2025 INDICATION: Back pain TECHNIQUE: Noncontrast CT scan of the thoracic spine was obtained. Scanner: [employer] 64 slice VCT Dose reduction technique: ASIR (Adaptive statistical iterativereconstruction) and/or AEC (automated exposure control) Dose: total exam DLP 3094 mGY per cm COMPARISON: No prior studies available for comparison. FINDINGS: Multilevel degenerative changes with disc space narrowing and osteophyteformation. No acute fracture or subluxation. No lytic or scleroticlesions. No paraspinal soft tissue swelling or gas formation. No discretelytic or sclerotic lesion. Bony fusion noted at the T10-11 level. Nosignificant bony acquired central canal stenosis or neural foraminanarrowing. Underlying lung mercedes are clear. No infiltrates or effusions. Tiny bilateral nonobstructing renal calculi measuring 1 to 2 mm. Lobulatedrenal upper poles bilaterally. IMPRESSION: Degenerative changes without acute fracture, subluxation or soft tissueswelling. -------- FINAL REPORT -------- Dictated By: Lj Ivey Dictated Date: 01/09/2025 15:57 ET Assigned Physician: Lj Ivey Reviewed and Electronically Signed By: Lj Ivey Signed Date: 01/09/2025 16:11 ET Workstation ID: [id number] Transcribed By: Self Edit Transcribed Date: 01/09/2025 15:58 ET Arcenio Platt MD [facility] CT PROCEDURES Final Result * (ABNORMAL) CBC auto differential (01/09/2025 3:18 PM EDT) Only the most recent of2 resultswithin the time period is included. WBC 8.5 4.8 - 10.8 K/[facility] LAB HEMETOLOGY METHOD 01/09/2025 3:43 PM EDT [facility] RBC 3.90 3.80 - 4.80 M/mcL LAB HEMETOLOGY METHOD 01/09/2025 3:43 PM EDT [facility] Hemoglobin 12.9 11.5 - 16.0 g/dL LAB HEMETOLOGY METHOD 01/09/2025 3:43 PM EDT [facility] Hematocrit 38.1 35.0 - 47.0 % LAB HEMETOLOGY METHOD 01/09/2025 3:43 PM EDT [facility] MCV 99.0(H) 79.0 - 98.0 FL LAB HEMETOLOGY METHOD 01/09/2025 3:43 PM EDT [facility] MCH 33.5(H) 27.0 - 32.0 pcg LAB HEMETOLOGY METHOD 01/09/2025 3:43 PM EDT [facility] MCHC 33.9 32.0 - 37.0 g/dL LAB HEMETOLOGY METHOD 01/09/2025 3:[facility] RDW 14.6 11.0 - 15.0 % LAB HEMETOLOGY METHOD 01/09/2025 3:43 PM EDT [facility] Platelets 240 130 - 400 K/mcL LAB HEMETOLOGY METHOD 01/09/2025 3:43 [facility] MPV 9.6 7.0 - 11.0 FL LAB HEMETOLOGY METHOD 01/09/2025 3:43 PM [facility] NRBC 0.0 <1.0 % LAB HEMETOLOGY METHOD 01/09/2025 3:43 PM EDT [facility] NRBC Absolute 0.00 <0.10 K/mcL LAB HEMETOLOGY METHOD 01/09/2025 3:43 PM EDT [facility] Neutrophils Relative 82.3 % LAB HEMETOLOGY METHOD 01/09/2025 3:43 PM EDT [facility] Lymphocytes Relative 13.4 % LAB HEMETOLOGY METHOD 01/09/2025 3:43 PM EDT [facility] Monocytes Relative 3.1 % LAB HEMETOLOGY METHOD 01/09/2025 3:43 PM EDT [facility] Eosinophils Relative 0.0 % LAB HEMETOLOGY METHOD 01/09/2025 3:43 PM EDT [facility] Basophils Relative 0.1 % LAB HEMETOLOGY METHOD 01/09/2025 3:43 PM EDT [facility] Immature Granulocytes Relative 1.1 % LAB HEMETOLOGY METHOD 01/09/2025 3:43 PM EDT [facility] Neutrophils Absolute 6.98 1.50 - 7.00 K/mcL LAB HEMETOLOGY METHOD 01/09/2025 3:43 PM EDT [facility] Lymphocytes Absolute 1.14 1.00 - 5.00 K/mcL LAB HEMETOLOGY METHOD 01/09/2025 3:43 PM EDT [facility] Monocytes Absolute 0.26 0.20 - 1.00 K/mcL LAB HEMETOLOGY METHOD 01/09/2025 3:43 PM EDT [facility] Eosinophils Absolute 0.00 0.00 - 0.50 K/mcL LAB HEMETOLOGY METHOD 01/09/2025 3:43 PM EDT [facility] Basophils Absolute 0.01 0.00 - 0.20 K/mcL LAB HEMETOLOGY METHOD 01/09/2025 3:43 PM EDT [facility] Immature Granulocytes Absolute 0.09(H) 0.00 - 0.03 K/mcL LAB HEMETOLOGY METHOD 01/09/2025 3:43 PM EDT [facility] Blood Venous blood specimen / Unknown Venipuncture / Unknown 01/09/2025 3:18 PM EDT 01/09/2025 3:38 PM EDT us Arcenio Platt MD LAB BLOOD ORDERABLES Final Res ult [facility] [address] [place] [address], * (ABNORMAL) Comprehensive Metabolic Panel (CMP) (01/09/2025 3:18 PM EDT) Only the most recent of2 resultswithin the time period is included. Sodium 134 133 - 145 mmol/L LAB CHEMISTRY METHOD 01/09/2025 4:04 PM [facility] Potassium 4.8 3.5 - 5.5 mmol/L LAB CHEMISTRY METHOD 01/09/2025 4:04 PM [facility] Chloride 101 96 - 110 mmol/L LAB CHEMISTRY METHOD 01/09/2025 4:04 PM [facility] CO2 25 21 - 32 mmol/L LAB CHEMISTRY METHOD 01/09/2025 4:04 PM [facility] Anion Gap 8 3 - 11 LAB CHEMISTRY METHOD 01/09/2025 4:04 PM [facility] Glucose 150(H) 70 - 100 mg/dL LAB CHEMISTRY METHOD 01/09/2025 4:04 PM [facility] BUN 24 5 - 25 mg/dL LAB CHEMISTRY METHOD 01/09/2025 4:04 PM [facility] Creatinine 0.98 0.50 - 1.10 mg/dL LAB CHEMISTRY METHOD 01/09/2025 4:04 PM [facility] eGFR 70 >=60 mL/min/1. 73m2 LAB CHEMISTRY METHOD 01/09/2025 4:04 PM [facility] Comment:Calculation based on the Chronic Kidney Disease Epidemiology Collaboration (CKD-EPI) equation refit without adjustment for race. BUN/Creatinine Ratio 24.5 LAB CHEMISTRY METHOD 01/09/2025 4:04 PM [facility] Calcium 9.4 8.5 - 10.5 mg/dL LAB CHEMISTRY METHOD 01/09/2025 4:04 PM [facility] AST (SGOT) 31 10 - 42 unit/L LAB CHEMISTRY METHOD 01/09/2025 4:04 PM EDT [facility] ALT (SGPT) 75(H) 10 - 60 unit/L LAB CHEMISTRY METHOD 01/09/2025 4:04 PM EDT [facility] Alkaline Phosphatase 109 42 - 121 unit/L LAB CHEMISTRY METHOD 01/09/2025 4:04 PM EDT [facility] Total Protein 6.4 6.0 - 8.0 g/dL LAB CHEMISTRY METHOD 01/09/2025 4:04 PM EDT [facility] Albumin 3.7 3.2 - 5.0 g/dL LAB CHEMISTRY METHOD 01/09/2025 4:04 PM EDT [facility] Total Bilirubin 0.4 0.0 - 1.4 mg/dL LAB CHEMISTRY METHOD 01/09/2025 4:04 PM T [facility] Blood Venous blood specimen / Unknown Venipuncture / Unknown 01/09/2025 3:18 PM EDT 01/09/2025 3:38 PM EDT us Arcenio Platt MD LAB BLOOD ORDERABLES Final Res ult [facility] [address] [place] [address], [place] [phone] * (ABNORMAL) Urinalysis with reflex microscopic and culture (01/09/2025 2:50 PM EDT) Specific [place] Urine 1.013 1.003 - 1.030 LAB URINALYSIS - AUTOMATED METHOD 01/09/2025 3:32 PM EDT [facility] pH, Urine 6.5 5.0 - 8.0 pH LAB URINALYSIS - AUTOMATED METHOD 01/09/2025 3:32 PM T [facility] Leukocytes, Urine Large(A) Negative LAB URINALYSIS - AUTOMATED METHOD 01/09/2025 3:32 PM EDT [facility] Nitrite, Urine Negative Negative LAB URINALYSIS - AUTOMATED METHOD 01/09/2025 3:32 PM [facility] Protein, Urine Negative <=Trace mg/dL LAB URINALYSIS - AUTOMATED METHOD 01/09/2025 3:32 PM [facility] Glucose, Urine Negative Negative mg/dL LAB URINALYSIS - AUTOMATED METHOD 01/09/2025 3:32 PM [facility] Ketones, Urine Negative Negative mg/dL LAB URINALYSIS - AUTOMATED METHOD 01/09/2025 3:32 PM [facility] Urobilinogen, Urine 0.2 0.2 - 1.0 mg/dL LAB URINALYSIS - AUTOMATED METHOD 01/09/2025 3:32 PM [facility] Bilirubin, Urine Negative Negative LAB URINALYSIS - AUTOMATED METHOD 01/09/2025 3:32 PM [facility] Blood, Urine Trace(A) Negative LAB URINALYSIS - AUTOMATED METHOD 01/09/2025 3:32 PM [facility] RBC, Urine 3.5 0 - 4 /HPF LAB URINALYSIS - AUTOMATED METHOD 01/09/2025 3:32 PM [facility] WBC, Urine 69.4(H) 0 - 4 /HPF LAB URINALYSIS - AUTOMATED METHOD 01/09/2025 3:32 PM [facility] Squamous Epithelial, Urine 31 0 - 60 /LPF LAB URINALYSIS - AUTOMATED METHOD 01/09/2025 3:32 PM [facility] Bacteria, Urine Many(A) Negative /HPF LAB URINALYSIS - AUTOMATED METHOD 01/09/2025 3:32 PM [facility] Hyaline Casts, Urine 0.8 0 - 3 /LPF LAB URINALYSIS - AUTOMATED METHOD 01/09/2025 3:32 PM [facility] Urine Urine specimen obtained by clean catch procedure / Unknown Non-blood Collection / Unknown 01/09/2025 2:50 PM EDT 01/09/2025 3:24 PM EDT us Arcenio Platt MD LAB URINE ORDERABLES Final Res ult Performing Organization Address [facility]/ZIP Co de Phone Number [facility] [address] [place] [address], [place] [phone] * [place] urine culture tube (01/09/2025 2:50 PM EDT) Extra Tube Hold for add-ons. 01/09/2025 5:01 PM EDT [facility] Comment:Auto resulted. Urine Urine specimen obtained by clean catch procedure / Unknown Non-blood Collection / Unknown 01/09/2025 2:50 PM EDT 01/09/2025 3:24 PM EDT us Arcenio Platt MD LAB URINE ORDERABLES Final Res ult Performing Organization Address [facility] Co de Phone Number [facility] [address] [place] [address], [place] [phone] * (ABNORMAL) Culture urine (01/09/2025 2:50 PM EDT) Culture, Urine >=100,000 CFU/mL Klebsiella pneumoniae ssp pneumoniae(A) NATALIA 01/11/2025 8:27 AM EDT [facility] Comment: This is an edited result. Previous organism was Gram negative bacilli on 01/10/2025 at 1325 EDT. Urine Urine specimen obtained by clean catch procedure / Unknown Non-blood Collection / Unknown 01/09/2025 2:50 PM EDT 01/09/2025 3:32 PM EDT Narrative Organism Antibiotic Method Susceptibility Klebsiella pneumoniae [...] Klebsiella pneumoniae ssp pneumoniae Trimethoprim/Sulfamethoxazo le NATALIA 40 ug/ml: Susceptible Arceino Platt MD LAB MICROBIOLOGY - GENERAL ORD ERABLES Final Result [facility] [address] [place] [address], [place] [phone] * (ABNORMAL) Urinalysis with reflex microscopic (12/13/2024 8:53 PM EDT) Specific [place] Urine 1.025 1.003 - 1.030 LAB URINALYSIS - AUTOMATED METHOD 12/13/2024 9:13 PM EDT [facility] pH, Urine 6.0 5.0 - 8.0 pH LAB URINALYSIS - AUTOMATED METHOD 12/13/2024 9:13 PM EDT [facility] Leukocytes, Urine Moderate(A) Negative LAB URINALYSIS - AUTOMATED METHOD 12/13/2024 9:13 PM EDT [facility] Nitrite, Urine Positive(A) Negative LAB URINALYSIS - AUTOMATED METHOD 12/13/2024 9:13 PM EDT [facility] Protein, Urine Trace <=Trace mg/dL LAB URINALYSIS - AUTOMATED METHOD 12/13/2024 9:13 PM [facility] Glucose, Urine Negative Negative mg/dL LAB URINALYSIS - AUTOMATED METHOD 12/13/2024 9:13 PM [facility] Ketones, Urine Trace(A) Negative mg/dL LAB URINALYSIS - AUTOMATED METHOD 12/13/2024 9:13 PM [facility] Urobilinogen , Urine 1.0 0.2 - 1.0 mg/dL LAB URINALYSIS - AUTOMATED METHOD 12/13/2024 9:13 PM [facility] Bilirubin, Urine Negative Negative LAB URINALYSIS - AUTOMATED METHOD 12/13/2024 9:13 PM [facility] Blood, Urine Negative Negative LAB URINALYSIS - AUTOMATED METHOD 12/13/2024 9:13 PM [facility] RBC, Urine 8.0(H) 0 - 4 /HPF LAB URINALYSIS - AUTOMATED METHOD 12/13/2024 9:13 PM [facility] WBC, Urine 52.2(H) 0 - 4 /HPF LAB URINALYSIS - AUTOMATED METHOD 12/13/2024 9:13 PM [facility] Squamous Epithelial, Urine >100(H) 0 - 60 /LPF LAB URINALYSIS - AUTOMATED METHOD 12/13/2024 9:13 PM [facility] Bacteria, Urine Many(A) Negative /HPF LAB URINALYSIS - AUTOMATED METHOD 12/13/2024 9:13 PM [facility] Hyaline Casts, Urine 7.2(H) 0 - 3 /LPF LAB URINALYSIS - AUTOMATED METHOD 12/13/2024 9:13 PM [facility] Urine Urine specimen obtained by clean catch procedure / Unknown Non-blood Collection / Unknown 12/13/2024 8:53 PM EDT 12/13/2024 9:07 PM EDT us Toro Johnson MD LAB URINE ORDERABLES Final Result [facility] [address] [place] [address], from Last 3 Months Insurance [employer] MED[employer]ARE Member Subscriber Plan / Payer (Ef fective 2017-Present) Name:JASON DURANTDIRA Relation to Subscriber:Self Name:Durant, Wale Payer ID:[id number] Group ID:[id number] Type:Not on file Address: [place] [address] [address] [phone] Advance Directives Documents on File Type Date Recorded Patient Director Medicaid Expl anation Health Care Decision (hx) 01/15/2023 [...] currently active code status orders. Care Teams Gang Vibrator Operator Relationship Specialty Start Date End Date Deonte Carmona PA [address] [place] [address] PCP - General Physician Director Of Veterans Affairs 05/01/24
--- OUTSIDE RECORDS SUMMARY | 2025-01-17 08:28 | XMS_ITS | Continuity of Care Document ---
Author Name [facility]ED, Medical Address [address] [place] [id number] Organization Unknown Address [address] [place] [address] Medications No known medications Problems No known problems
--- OUTSIDE RECORDS SUMMARY | 2025-01-17 08:28 | XMS_ITS | Encounter Summary ---
Author Organization [employer] Address [address] [place] [address] Care Team Providers Care Weigh And Charge Worker Name Role Phone Deonte Carmona Primary Care Provider [phone] Encounter Details Date Type Department Care Team (Late st Contact Info) Description 09/09/2024 Lab Requisition [facility] - Main Lab [address] [facility] [place] [address] Starr Mcmillan PA [address] [place], [place] [id number] Urinary tract infection, site not specified Social History Tobacco Use Types Packs/Day Years Used Date Smoking Tobacco: Never Smokeless Tobacco: Never Alcohol Use Standard Drinks/Week Comments Never 0 [...] on file documented as of this encounter Plan of Treatment Not on file documented as of this encounter Procedures Procedure Name Priority Date/Time Associated Diagnosis Comments CULTURE URINE Routine 09/09/2024 12:00 AM EDT Urinary tract infection, site not specified documented in this encounter Results * (ABNORMAL) Culture urine (09/09/2024 12:00 AM EDT) Culture, Urine >100,000 CFU/mL Klebsiella pneumoniae ssp pneumoniae(A) NATALIA 09/11/2024 10:52 AM EDT [facility] Comment: This is an edited result. Previous organism was Gram negative bacilli on 09/10/2024 at 1329 EDT. Urine Urine specimen obtained by clean catch procedure / Unknown 09/09/2024 09/09/2024 5:52 PM EDT Narrative Organism Antibiotic Method Susceptibility Klebsiella pneumoniae ssp pneumoniae Amoxicillin/Clavulanate NATALIA 4 ug/ml: Susceptible Klebsiella pneumoniae ssp pneumoniae Ampicillin/Sulbactam NATALIA >=32 ug/ml: Resistant Klebsiella pneumoniae ssp pneumoniae Piperacillin/Tazobactam NATALIA >=128 ug/ml: Resistant Klebsiella pneumoniae ssp pneumoniae Cefazolin (Urine) NATALIA 4 ug/ml: Susceptible Klebsiella pneumoniae ssp pneumoniae Cefoxitin NATALIA 8 ug/ml: Susceptible Klebsiella pneumoniae ssp pneumoniae Ceftazidime NATALIA <=0.5 ug/ml: Susceptible Klebsiella pneumoniae ssp pneumoniae Ceftriaxone NATALIA <=0.25 ug/ml: Susceptible Klebsiella pneumoniae ssp pneumoniae Cefepime NATALIA <=0.12 ug/ml: Susceptible Klebsiella pneumoniae ssp pneumoniae Meropenem NATALIA <=0.25 ug/ml: Susceptible Klebsiella pneumoniae ssp pneumoniae Amikacin NATALIA 2 ug/ml: Susceptible Klebsiella pneumoniae ssp pneumoniae Gentamicin NATALIA <=1 ug/ml: Susceptible Klebsiella pneumoniae ssp pneumoniae Ciprofloxacin NATALIA 0.12 ug/ml: Susceptible Klebsiella pneumoniae ssp pneumoniae Levofloxacin NATALIA 0.5 ug/ml: Susceptible Klebsiella pneumoniae ssp pneumoniae Nitrofurantoin NATALIA 64 ug/ml: Intermediate Klebsiella pneumoniae ssp pneumoniae Trimethoprim/Sulfamethoxazo le NATALIA >=320 ug/ml: Resistant us Starr MARINELLI LAB MICROBIOLOGY - GENERAL ORD ERABLES Final Result [facility] [address] [place] [address], documented in this encounter Visit Diagnoses Diagnosis Urinary tract infection, site not specified documented in this encounter Care Teams Weigh And Charge Worker Relationship Specialty Start Date End Date Deonte Carmona PA [address] [place] [phone] PCP - General Physician Material Control Specialist 05/01/24 documented as of this encounter
--- OUTSIDE RECORDS SUMMARY | 2025-01-17 08:28 | XMS_ITS | Encounter Summary ---
Author Organization [facility] Address [address] [place] [address] Encounters * CPT with Medical [facility] at [employer] on 2024-10-31 { reasonForRequest : Pt was seen on 10/25 for pink eye>left side swelling , patientReports : , denies :[ Greene Flash, circumferential greene , Greene reported with black tissue to the area , O pen skin area after a fall with uncontrolled bleeding , Abscess/infection with streaking noted, presence of fever or without ], chiefComplaints : Wound Care , pmh : Hypothyroidism, Anxiety Disorder, Gastroesophageal Reflux Disease (GERD), Chronic Back Pain, Chronic Pain, Cholecystectomy , allergies : Trazodone, Ambien, Zomig&quo t;, otherAllergies :null, painAssessment : , visitOutcome : , additionalComments : 49 y.o female complains of Wound Care\n\nReferraltaken via [facility] Laboratory Technician.\nPatient seen 10/25 for possible left eye conjunctivitis.\nThey report patient is using the eye drops prescribed.\nThey denies any redness or warmth to the eye, +swelling and drainage.\nThey now note the left cheek to be swollen- they denies any new products, meds or foods, etc.\nThe caller is not currently with patient, another DIRECTOR OF HEMOPHILIA called her to report the swelling-- she is unsure but does not believe patient is having any lip or tongue swelling, shortness of breath or difficulty swallowing.\nUnknown fever/chills.\nThey would like patient evaluated.\n\nAdditional PMHx- cerebral palsy \n\nI provided information on the mobile health provider response time and advised the patient and/or caregiver to monitor reported signs and symptoms. I discussed the warning signs of when to seek emergency care. } [facility] responds to the listed address for a 49 yof w/ a c/c of eye pain, swelling, and WING. Upon arrival, pt is found laying supine in bed watching TV. She makes eye contact w/ [facility] and says hello. She is generally well-appearing and not in acute distress. Pt says she was dx w/ conjunctivitis a week ago and prescribed abx drops for 7 days. She has finished the drops, but is still having discharge, WING, and watery eye on the L side w/ crusty eyes in the morning. She says the WING is bad in the morning and her L cheek and around her eye feel swollen to her. She is denying any recent cough w/ cold, nasal congestion, ear aches, or sore throat. She doesn't know where she contracted the conjunctivitis as she doesn't go out much due to her CP. Pt is denying any visual changes at this time and she has been taking 1300mg Tylenol once per day for the pain. She does have an appointment w/ her eye doctor, but doesn't know the date. [facility] obtains vital signs and focused assessment on pt's head and eyes. Head is atraumatic and normocephalic. 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 Bilateral pupils are PERRL. R conjunctiva is pink and moist and sclera is clear. L sclera has purulent buildup on the outside corner and conjuctiva is red and mildly swollen. Discharge is noted on hte medial corner as well. No active watering. L cheek and periorbital skin is warm and red. Pt denotes WING is around the L eye in the morning. [facility] contacts [facility] and discusses the above. [facility] recommends pt continue w/ Tylenol BID for pain and w/ allergy drops, but DC abx and follow-up w/ her eye doctor or PCP. [facility] also recommends warm compresses and keeping hands clean. [facility] reiterates [facility] recommendations and advises pt to also wash her bedding and use hand loader demolder or wash her hands often. [facility] advises pt to seek emergency care if she gets a highfever, worsening eye pain or WING, and visual changes. Pt gives her verbal understanding and thanks [facility] for coming. [facility] is clear. Report completed by SHARON Chow [id number]. ORAL_MEDICATION, WOUND_CARE Written by [facility] on 2024-10-31
--- OUTSIDE RECORDS SUMMARY | 2025-01-17 08:29 | XMS_ITS | Encounter Summary ---
Author Organization [facility] Address [address] [place] [address] Encounters * CPT with Medical [facility] at [employer] on 2024-11-26 { reasonForRequest : Pt is not feel well, having back pain and difficulty walking", patientReports : Frequent and increased urination with flank pain , denies :[ Unable to void greater than 5 hours , Erection that will not go away after 2 hours , Fall or trauma that results in urinary incontinence in the setting of pain", Fall or injury that results in incontinence in the absence of pain , Lower back pain either unilateral or bilateral, unable to void, painful urination -hematuria , Painful urination , Painful urination with or without fever , Inability to fully emptybladder ], chiefComplaints : Back Pain , pmh : Hypothyroidism, Anxiety Disorder, Gastroesophageal Reflux Disease (GERD), Chronic Back Pain, Chronic Pain, Cholec ystectomy , allergies : Trazodone, Ambien, Zomig , otherAllergies&quot ;:null, painAssessment : , visitOutcome : , additionalComments : 49 y.o female \n\nCall completed with an meat smoker \n\nPCA calling for a Patient for back pain. \nPT does usually have back pain. She was doing something in the house and she has increased pain. \nShe is unable to walk well due to the pain. She has given her OTC pain medication, but it has not helped. \nShe does have a UTI , she denies any treatment at this but also statedshe had not gotten back any of the results at this time\nShe also almost fell down due to the pain level. \nShe denies any burning / urgency \n\nI provided information on the mobile health provider response time and advised the patient and/or caregiver to monitor reported signs and symptoms. I discussed the warning signs of when to seek emergency care. } Dispatched to the call address for the female with back pain. Pt states she was transitioning from her bed to the commode and almost fell but caught herself. shortly after that she started feeling pain that was 3 days ago. Pt has not taken any OTC pain medication, when asked why she replied with "I don't know . Pt advises she provided a urine sample to her PCP 2 days ago and is awaitingthe results. She opted to no provide a urine sample this evening and rather wait for her doctor. Ptdenies chest pain, diff breathing/sob, fevers, n/v/d, black or bloody stools or other complaints atthis time. Pt was found opening door, CAOx4, airway open and patent, breathing non labored, able to speak in full sentences, -JVD, -HEENT, skin PWD with good turgor, lungs CTA mucous membranes pink and moist, pupils PERRL, abd soft non tender/distended, +CMSx4, -edema/swelling, afebrile. back pain. Pt was assessed. [facility] consulted. Pt given 30mg IM Ketorolac after confirming 5 med rights. Red flagsdiscussed. ALL times are approx. IV_(FLUIDS_AND/OR_MEDICATION), MEDICATION_IM, ORAL_MEDICATION, EKG Written by Medical [facility] on 2024-11-26
--- OUTSIDE RECORDS SUMMARY | 2025-01-17 08:29 | XMS_ITS | Encounter Summary ---
Author Organization [facility] Address [address] [place] [address] Encounters * CPT with Medical inst[facility] at [employer] on 2024-10-25 { reasonForRequest : Suspected conjunctevitis, pt unable to get out of bed. Pt fell two weeks ago and is limited movement [place]\n , patientReports : , dasha es :[ Sudden onset of dental pain, unable to manage own secretions , Nosebleed l asting longer than one hour; unable to stop bleeding , Throat swelling/difficult swallowing ], chiefComplaints : Eye Complaint , pmh : Hypothyroidism, Anxiety Disorder, Gastroesophageal Reflux Disease (GERD), Chronic Back Pain, Chronic Pain, Cholecystectomy , allergies : Trazodone, Ambien, Zomig , otherAllergies : null, painAssessment : , visitOutcome : , additionalComments : Additional PMH: Cerebral Palsy\n49 y.o female complains of Eye Complaint\nPatient and patient's DIRECTOR PRINT are Occitan speaking primarily, Director Informatics# [id number] used for triage assessment. DIRECTOR PRINT reports redness in patient's L eye, as well as increased tearing. DIRECTOR PRINT is concerned that she could have conjunctivitis. Patient denies any changes in her vision. Patient reporting pain in L eye and pain on the R side of patient's head. DIRECTOR PRINT also reports patient fell a couple weeks ago and is having trouble moving. Patient is normally in a wheelchair at baseline but is having more trouble transferring since the fall. DIRECTOR PRINT reports patient is getting better since falling, is not complaining of pain from the fall. I provided information on the mobile health provider response time and advised the patient and/or caregiver to monitor reported signs and symptoms. I discussed the warning signs ofwhen to seek emergency care -Ambar Cortes RN } Encountered patient conscious, alert and supine. Patient reports she woke up this morning to an itchy left eye that has been producing more tears than usual as well as a headache around the eye. Patient denies waking up with a crusted eye and additionally denies fevers, nausea, vomiting, dizziness and changes in vision. Pictures of eyes uploaded via [employer]. Skin warm, dry and of appropriate color for ethnicity. Head and neck, free of trauma and edema. Pupils are round and reactive, patient does suffer from amblyopia of the right eye at baseline; left lateral sclera red and producing excess tears. Breath sounds present, clear and equal bilaterally. Abdomen is soft, non-tender and non-distended. Extremities free of trauma and edema. [facility] contacted: encourages patient to arrange an appointment with her part time flexible clerk for further evaluation. [facility] reports they will treat for a suspected conjunctivitis and will send prescriptions for treatment to a pharmacy of patient???s choice. Patient was encouraged to monitor herself for changes in vision, fevers, nausea, vomiting, dizziness, worsening headaches and rashes. Patient was encouragedto seek further medical attention, including 911 if any of said symptoms were to develop. Patient verbalizes understanding of the plan and reports she is comfortable remaining home today, DIRECTOR PRINT actively working to arrange optometry appointment. Written by [employer] on 2024-10-25
--- OUTSIDE RECORDS SUMMARY | 2025-01-17 08:29 | XMS_ITS | Encounter Summary ---
Author Organization [employer] Address [address] [place] [address] Care Team Providers Care Boilermaker Fitter Name Role Phone Deonte Carmona Primary Care Provider [phone] Encounter Details Date Type Department Care Team (Late st Contact Info) Description 01/11/2025 Results Follow-Up [facility] Emergency [address] [place] [address] Clare Chahal RN Social History Tobacco Use Types Packs/Day Years [...] on file documented as of this encounter Functional Status * Are you deaf or do you have serious difficulty hearing? Answer Date of Assessment Author No 01/09/2025 8:49 PM EDT Gypsy Song RN * Are you blind or do you have serious difficulty seeing, even when wearing glasses? Answer Date of Assessment Author No 01/09/2025 8:49 PM EDT Gypsy Song RN * Do you have serious difficulty walking or climbing stairs? Answer Date of Assessment Author Yes 01/09/2025 8:49 PM EDT Gypsy Song RN * Do you have serious difficulty dressing or bathing? Answer Date of Assessment Author Yes 01/09/2025 8:49 PM EDT Gypsy Song RN * Because of a physical, mental, or emotional condition, do you have serious difficulty doing errandsalone such as visiting the doctor? Answer Date of Assessment Author Yes 01/09/2025 8:49 PM EDT Gypsy Song RN documented as of this encounter Mental Status * Because of a physical, mental, or emotional condition, do you have serious difficulty concentrating, remembering, or making decisions? (5 years old or older) Answer Entry Date Author No 01/09/2025 8:49 PM EDT Gypsy Song RN documented in this encounter Progress Notes * Clare Chahal RN - 01/11/2025 4:19 PM EDT Per Alexandr clevel[place] 875/125 1 tab po bid x 7 days no refills spoke to pt's wiping rag washer who will picker/puller the rx documented in this encounter Plan of Treatment Not on file documented as of this encounter Visit Diagnoses Not on filedocumented in this encounter Care Teams Boilermaker Fitter Relationship Specialty Start Date End Date Deonte Carmona PA [address] [place] [phone] PCP - General Physician Metropolitan Editor 05/01/24 documented as of this encounter
== END 2025-01-17 09:38 | disposition home or self-care (01) ==
LOC: HO.HMCH 08:13
PROVIDERS: PCP Physician Assistant; Visit Provider Physician Assistant
DX: G80.9 Cerebral palsy, unspecified (principal); N39.0 Urinary tract infection, site not specified; E78.2 Mixed hyperlipidemia; E03.9 Hypothyroidism, unspecified; E23.2 Diabetes insipidus; H61.23 Impacted cerumen, bilateral

== ENCOUNTER → 2025-01-17 08:12 | Outpatient (BNVA) | payer OTHER, SELFPAY | PROVIDERS: PCP Physician Assistant; Visit Provider Physician Assistant | DX: E78.2 Mixed hyperlipidemia (principal); G80.9 Cerebral palsy, unspecified; E03.9 Hypothyroidism, unspecified; F32.A Depression, unspecified; N39.0 Urinary tract infection, site not specified; E23.2 Diabetes insipidus; H61.23 Impacted cerumen, bilateral; Z99.3 Dependence on wheelchair | CPT/HCPCS: 69209; 96127; 99212 ==

== ENCOUNTER 2025-01-31 13:00 | Outpatient (REF) | payer OTHER, SELFPAY ==
[2025-01-31 16:20] LABS: Appearance Urine Cloudy; Glucose Urine UA Negative (Negative); PH 6.0 (5.0-9.0); Specific Gravity - Urine 1.020 (1.005-1.025); UMIC TRIGGER UACC YES
[2025-01-31 16:29] LABS: UACC Culture Trigger YES
--- OUTSIDE RECORDS SUMMARY | 2025-01-31 17:02 | XMS_ITS | Encounter Summary ---
Author Organization [facility] Address [address] [place] [phone] Phone Care Team Providers Care Support Worker Name Role Phone Carlos Hunter MD Primary Care Provider [phone]- [phone] Pcp, Unknown Primary Care Provider UnavailDeonte Fitzgerald Primary Care Provider + Pcp, Unknown Unavailable Unavailable Yajaira Harley MD Unavailable [phone] Toro Miller MD Unavailable [phone] Encounter Details Date Type Department Care Team (Latest Contact Info) Description 07/20/2019 Transcribe Orders [facility] Specimen Processing [address] [place] [address] Bernice Bustamante MD [address] [place] [address] [id number] [email or web address] Suspected Covid-19 Virus Infection (Primary Dx) Social History Tobacco Use Types Packs/Day Years Used Date Smoking Tobacco: Never Assessed Comments Unknown Sex and Gender Information Value Date Recorded Sex Assigned at Not on file Legal Sex Female 3:44 PM EDT Gender Identity Not on file Sexual Orientation Not on file documented as of this encounter Plan of Treatment Not on file documented as of this encounter Results * COVID-19 PCR Order (07/20/2019 5:14 PM EDT) Specimen Source 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 Lab [facility] Other 07/20/2019 5:14 PM EDT 07/20/2019 5:23 PM EDT Bernice Bustamante MD LAB GENERAL ORDERABLES Edited Result - Final [facility] [address] [place] [address] documented in this encounter Visit Diagnoses Diagnosis Suspected COVID-19 virus infection- Primary documented in this encounter Additional Health Concerns Infection Onset Date Last Indicated Resolved Time CoV-Risk Comment:COVID-19 test pending 07/20/2019 07/20/2019 07/21/2019 10:53 AM EDT COVID-19 Comment:[facility] resident 07/20/2019 07/20/2019 08/28/2019 1:2 5 AM EDT CoV-Exposed Comment:[facility] resident 08/10/2019 08/10/2019 08/10/2019 9:3 4 AM EDT CoV-Recovered Comment:Patient has recovered from COVID-19. Contact infection control with any questions. 09/08/2019 09/08/2019 09/15/2019 1:27 AM E DT documented as of this encounter Care Teams Support Worker Relationship Specialty Start Date End Date Carlos Hunter MD [address] [place] [address], [address] [place] [address] PCP - General Internal Medicine 07/02/18 12/05/21 Pcp, Unknown PCP - General 12/06/21 01/20/25 Deonte Carmona PA [address] [place] [id number] PCP - General Physician Transcripter 01/21/25 Pcp, Unknown 01/21/25 Yajaira Harley MD [address] [place] [id number] [email or web address] Endocrinology 07/20/18 Toro Miller MD [address] [facility] [address] [place] [address] [email or web address] Urology 07/21/18 documented as of this encounter Additional Source Comments The information contained in this document represents components of the legal health record. It is not the complete legal health record.[facility]
--- OUTSIDE RECORDS SUMMARY | 2025-01-31 17:02 | XMS_ITS | Encounter Summary ---
Author Organization [employer] Address [address] [place] [address] Care Team Providers Care Habitat Conservation Planner Name Role Phone Deonte Carmona Primary Care Provider [phone] Encounter Details Date Type Department Care Team (Late st Contact Info) Description 01/11/2025 Results Follow-Up [facility] Emergency [address] [place] [address] Clare Chahal RN Social History [...] 7 days no refills spoke to pt's trim setter helper who will brain picker the rx documented in this encounter Plan of Treatment Not on file documented as of this encounter Visit Diagnoses Not on filedocumented in this encounter Care Teams Habitat Conservation Planner Relationship Specialty Start Date End Date Deonte Carmona PA [address] [place] [phone] PCP - General Physician Salesperson Furs 05/01/24 documented as of this encounter
--- OUTSIDE RECORDS SUMMARY | 2025-01-31 17:02 | XMS_ITS | Data Portability ---
Author Organization [employer], [facility] Address [address] [place] [address] Care Team Providers Care Chisel Trimmer Name Role Phone DARRION BARNES Primary Care Provider [phone] HIM CCA OTHER Assessment Encounter Date Assessment Date Assessment LastModified by Organization Details LastModified Time 05/10/2024 05/10/2024 I have reviewed and agree with the assessment and plan as documented by the equipment operator/laborer. I provided real-time medical direction for this [...] functioning. VSS. Exam otherwise unremarkable per the equipment operator/laborer. BMP reveals K 3.5. Otherwise unremarkable. Impression: [...] Assessment and Plan as documented by the Attic Fans Mechanic. Patient given the opportunity to ask questions. Our service contacted for an assessment of: Urinary symptoms As per above, patient with approximately 24 hours of dysuria, difficulty emptying her bladder. Positive history of frequent urinary tract infections. Follows with urology. Denies fever, chills, abdominal pain, back pain, flank pain. Per equipment operator/laborer on the scene, Vital signs are stable [...] fever chills [email or web address] Not available 07/12/2024 17:35:25 10/25/2024 10/25/2024 I provided real -time medical direction via phone for this encounter, and was available for additional phone based assistance as needed. I have reviewed and agree with the Assessment and Plan as documented by the Attic Fans Mechanic. We discussed the diagnostic uncertainty of home visits and the risk associated with this. In this case the patient and I felt this to be an acceptable and reasonable amount of risk given the benefit of avoiding an ED visit. Advised limited eye exam in home-Needs ophthalmology f/u for better exam- The patient/ PIPE PROCESSOR given the opportunity to ask questions. Advised if develops severe Headache/ acute visual changes/ redness around the eye/ facial rash/uncontrolled n/v/ AMS/ syncope/ hi fever /to go to the ER immediately - verbalized understanding of instruction Not available 10/25/2024 14:31:00 10/31/2024 10/31/2024 I have reviewed and agree with the assessment and plan as documented by the equipment operator/laborer. I provided real-time medical direction for this encounter and was immediately available to provide additional phone-based assistance as needed. HPI: 49F presenting with left eye redness and irritation x 1 week. Patient was seen by [facility] and thought to have allergic vs bacterial conjunctivitis. She was started on an allergy drop as well as antibiotic. Pt states she continues to experience irritation to her eye despite using the drops. No visual change to eye. Mild redness and tearing. No itchiness. Also complains of headache and left cheek swelling. No cough/runny nose, no allergy symptoms, no fever. O/E: Vitals at baseline. Full EOM normal. Left eye with mild scleral irritation, no erythema. No discharge. Left eye normal. Exam otherwise unremarkable per the equipment operator/laborer Impression/Plan: Ongoing left eye irritation in the context of possible allergic conjunctivitis. No change to visual acuity. No evidence for bacterial infection presently, however difficult to assess without proper eye examination. Differential also includes cluster headache. Recommend pt be seen by ophthalmology and she has appointment coming up this week. Pt advised to increase fluid hydration and recommend Tylenol PRN, wash hands and avoid touching eyes. We discussed the diagnostic uncertainty of home [...] or any other concerns. [email or web address] Not available 10/31/2024 14:28:35 11/25/2024 11/25/2024 Ms. Durant is a 49 yo F with hypothyroidism, Anxiety Disorder, Gastroesophageal Reflux Disease (GERD), Chronic Back Pain, Chronic Pain, Cholecystectomy who is calling today about acute on chronic back pain. Per patient and medic, baseline has chronic back pain. Was moving around doing errands in the house. Now with more pain. Tried OTC pain medication, but it has not helped. She does have dysuria sx, she hasn't started any treatment. Denies urgency or fevers. No black or bloody stools. No h/o CKD or ulcer history. Was hoping to get toradol for sx management. Patient has known chronic back pain, no new falls, injuries or traumas. On clarification with medic, no urinary complaints at this time. Doesn't think she's able to provide any sample. Informed that if she is willing to give a sample she can call us back and we can continue to evaluate. 30mg IM toradol provided. No red flag sx for imaging warranted. No c/f fx or disc herniation or new neuro sx. No c/f conus medullaris. No fevers or epidural abscess/infections /hematomas concerning. Did concern urinary source, but sx appear more MSK on exam. I provided real -time medical direction via phone for this encounter, and was available for additional phone based assistance as needed. I have reviewed and agree with the Assessment and Plan as documented by the Attic Fans Mechanic. We discussed the diagnostic uncertainty of home visits and the risk associated with this. In this case the patient and I felt this to be an acceptable and reasonable amount of risk given the benefit of avoiding an ED visit. The patient given the opportunity to ask questions. Follow up with primary care was recommended, as needed. Advised if develops CP/severe SOB/turning blue/uncontrolled n/v/d or black/bloody emesis or stool/ AMS/ syncope/ high fever unresponsive to APAP to call 911- verbalized understanding of instruction. [email or web address] Not available 11/25/2024 20:14:53 Plan of Treatment Reminders Order Date Submit Date Provider Last Modified By Organization Details Last Modified Time Details Appointments None recorded. Lab urinalysis, dipstick 2024 025 [facility], [address] [place] [address], [id number] 21:25:44 culture, urine 2024 025 [place] [facility] (Centralized Electronic Ordering - All Locations), Patient Can Go To The Location Of Their Choice, [address] 10:07:40 BMP, serum or plasma 2024 025 [facility], [address] [place] [address], [phone] 16:54:48 Referral None recorded. Procedures None recorded. Surgeries None recorded. Imaging None recorded. Medication Orders ketorolac 30 mg/mL injection solution 2024 025 viviana scott [facility]/Pharmacy #1027, [address] [place], [address], 20:15:48 olopatadine 0.1 % eye drops 2024 025 [facility]/Pharmacy #1026, [address] [place], [address], 5 14:27:25 neomycin-po lymyxin-dex ameth 3.5 mg/mL-10,00 0 unit/mL-0.1 % eye drops 2024 025 [facility] [address] [place], [address], 5 14:27:25 sulfamethox azole 800 mg-trimetho prim 160 mg tablet 2024 0[facility] [address] [place], [address], 5 17:32:32 sulfamethox azole 800 mg-trimetho prim 160 mg tablet 2024 025 [facility] [address] [place], [address], 5 17:32:35 potassium chloride ER 20 mEq tablet,exte nded release 2024 [facility] [address] [place], [address], 5 16:53:27 Patient TargetsNo targets recorded. Patient InstructionsNo instructions recorded. Reason for Referral None Reported. Results Created Date Observation Date Name Description Value Unit Range Abnormal Flag Note LastModifiedBy Organization Detail LastModifiedTime 07/13/1907/15/2024 URINE CULTU RE, ROUTI NE urine culture, routine Final report abnormal Not Available [facility] ([facility]) [address] [facility] [address], [place], [address], 07/15/2024 08:11:57 07/13/1907/15/2024 URINE CULTU RE, ROUTI NE result 1 [...] ng units per mL Not Available [facility] ([facility]) [address] [facility] [address], [place], [address], 07/15/2024 08:11:57 07/13/1907/15/2024 URINE CULTU RE, ROUTI NE antimicrobia l [...] thopr im/Gautam lfa R Not Available [facility] ([facility]) [address] [facility] [address], [place], [address], 07/15/2024 08:11:57 Result Notes None recorded. Medical Equipment None Reported. Allergies Allergen ID Allergen Name Allergen Category Reaction Reaction Severity Criticality Documentation Date Start Date Code Code System Note Provider Name and Address Organization Details Recorded Time 6020 Zomig medicatio n Not available Not available Not available 12/26/2023 57966 4 RxNorm Not Available [facility] - production 13:48:13 6340 Ambien medicatio n Not available Not available Not available 12/26/2023 96809 5 RxNorm Not Available [facility] 5 13:48:13 6341 trazodone medicatio n Not available Not available Not available 12/26/2023 64579 RxNorm Not Available [facility] 4 03:42:42 Medications Name Sig Start Date Stop Date Status Note LastModified by Organization Details LastModified Time amoxicillin 500 mg capsule TAKE 1 CAPSULE BY MOUTH 4 TIMES A DAY UNTIL FINISHED active Not Available Not Available No t Available fluconazole 100 mg tablet 100 MG ORALLY ONCE FOR 1 DAY active Not Available Not Available No t Available atorvastatin 40 mg tablet TAKE 1 TABLET BY MOUTH DAILY. active Not Available Not Available No t Available prednisone 10 mg tablet TAKE 1 TABLET BY MOUTH EVERY DAY FOR 5 DAYS active Not Available Not Available No t Available cefuroxime axetil 250 mg tablet TAKE 1 TABLET BY MOUTH EVERY 12 HOURS FOR 5 DAYS active Not Available Not Available N ot Available polyethylene glycol 3350 17 gram oral powder packet TAKE 17 G BY MOUTH 1 (ONE) TIME EACH DAY FOR 10 DAYS. active Not Available Not Available No t Available cefpodoxime 200 mg tablet TAKE 1 TABLET BY MOUTH TWICE A DAY active Not Available Not Available No t Available cefpodoxime 100 mg tablet TAKE 1 TABLET BY MOUTH EVERY 12 HOURS FOR 7 DAYS active Not Available Not Available N ot Available ibuprofen 800 mg tablet TAKE 1 TAB BY MOUTH ONCE EVERY 8 HOURS NEEDED FOR PAIN (SCALE SCORE 7-10) FOR 15 DAYS active Not Available Not Available Not Available tizanidine 4 mg tablet TAKE 1 TABLET BY MOUTH TWICE A DAY NEEDED FOR MUSCLE SPASMS active Not Available Not Available No t Available fluconazole 150 mg tablet PLEASE SEE ATTACHED FOR DETAILED DIRECTIONS active Not Available Not Available N ot Available valacyclovir 1 gram tablet TAKE 1 TABLET BY MOUTH DAILY FOR 90 DAYS active Not Available Not Available Not Available hydrocodone 5 mg-acetamino phen 325 mg tablet TAKE 1 TABLET BY MOUTH EVERY 6 HOURS NEEDED FOR PAIN. PARTIAL FILL UPON PATIENT REQUEST active Not Available Not Available No t [...] Not Available Not Available No t Available permethrin 5 % topical cream 1 APPLICATION TOPICALLY DAILY FOR 14 DAYS APPLY DAILY FOR 7 DAYS, THEN 2 TIMES A WEEK UNTIL CURED active Not Available Not Available No t Available clindamycin HCl 150 mg capsule TAKE 1 CAPSULE 3 TIMES A DAY UNTIL FINISHED active Not Available Not Available No t Available venlafaxine ER 150 mg capsule,exte nded release 24 hr TAKE 1 CAPSULE BY MOUTH EVERY DAY active Not Available Not Available No t Available trimethoprim 100 mg tablet TAKE 1 TABLET BY MOUTH EVERY DAY active Not Available Not Available No t Available valacyclovir 500 mg tablet CRISTIN YARIEL TABLETA TODO LOS FORD active Not Available Not Available No t Available ciprofloxaci n 500 mg tablet PLEASE SEE ATTACHED FOR DETAILED DIRECTIONS active Not Available Not Available N ot Available sulfamethoxa zole 800 mg-trimethop rim 160 mg tablet TAKE 1 TABLET BY MOUTH EVERY 12 HOURS FOR 7 DAYS active Not Available Not Available N ot Available omeprazole 40 mg capsule,jaun yed release TAKE 1 CAPSULE BY MOUTH DAILY active Not Available Not Available Not Available aspirin 81 mg tablet,delay ed release TAKE 1 TABLET BY MOUTH EVERY DAY active Not Available Not Available No t Available tramadol 50 mg tablet 50 MG ORALLY 2 TIMES A DAY FOR PAIN FOR 30 DAYS. INS MAX 7 DAY SUPPLY active Not Available Not Available No t Available butalbital-a cetaminophen -caffeine 50 mg-325 mg-40 mg tablet TAKE 1 TABLET BY MOUTH EVERY 6 HOURS NEEDED FOR PAIN *NC* active Not Available Not Available No t Available amoxicillin 500 mg tablet TAKE 1 TABLET 4 TIMES A DAY UNTIL FINISHED active Not Available Not Available No t Available acetaminophe n ER 650 mg tablet,exten ded release TAKE 2 TABLETS BY MOUTH EVERY 12 HOURS NEEDED FOR FEVER OR PAIN FOR 90 DAYS active Not Available Not Available No t Available levothyroxin e 75 mcg tablet TAKE 1 TABLET BY MOUTH 6 TIMES PER WEEK active Not Available Not Available No t Available Miconazole-7 2 % vaginal cream INSERT 1 APPLICATORF UL VAGINALLY AT BEDTIME FOR 7 NIGHTS active Not Available Not Available No t Available levothyroxin e 88 mcg tablet TAKE 1 TABLET BY MOUTH EVERY DAY FOR 90 DAYS active Not Available Not Available No t Available prednisolone acetate 1 % eye drops,suspen watson INSTILL 1 DROP INTO LEFT EYE 4 TIMES A DAY active Not Available Not Available Not Available magnesium oxide 400 mg (241.3 mg magnesium) tablet TAKE 1 TABLET BY MOUTH TWICE A DAY active Not Available Not Available No t Available temazepam 15 mg capsule TAKE 1 CAPSULE BY MOUTH EVERY DAY AT BEDTIME active Not Available Not Available No t Available meclizine 25 mg tablet TAKE 1 TABLET BY MOUTH DAILY NEEDED FOR MOTION SICKNESS FOR 14 DAYS active Not Available Not Available Not Available bisacodyl 10 mg rectal suppository UNWRAP AND INSERT 1 SUPPOSITORY RECTALLY DAILY NEEDED FOR CONSTIPATIO N active Not Available Not Available No t Available cephalexin 500 mg capsule TAKE 1 CAPSULE BY MOUTH EVERY DAY active Not Available Not Available No t Available ferrous sulfate 325 mg (65 mg iron) tablet TAKE 1 TABLET BY MOUTH EVERY DAY active Not Available Not Available No t Available neomycin-adonis ymyxin-dexam eth 3.5 mg/mL-10,000 unit/mL-0.1% eye drops PUT 1 DROP INTO AFFECTED EYE(S) 3 TIMES A DAY FOR 7 DAYS active Not Available Not Available N ot Available olopatadine 0.1 % eye drops INSTILL 1 DROP INTO AFFECTED EYE(S) BY OPHTHALMIC ROUTE 2 TIMES PER DAY for 7 days 2024 active Not Available Not Available Not Avai lable metoprolol tartrate 50 mg tablet TAKE 1 [...] Not Available Not Available No t Available ondansetron 4 mg disintegrati ng tablet DISSOLVE 1 TABLET ON TOP OF TONGUE EVERY 8 HOURS NEEDED FOR NAUSEA AND VOMITING FOR UP TO 7 DAYS active Not Available Not Available No t Available cefdinir 300 mg capsule TAKE 1 CAPSULE BY MOUTH TWICE A DAY FOR 10 DAYS active Not Available Not Available No t Available naproxen 500 mg tablet TAKE 1 TABLET BY MOUTH TWICE A DAY 15 DAYS active Not Available Not Available No t Available desmopressin 0.1 mg tablet TAKE 1 TABLET BY MOUTH TWICE A DAY [id number] active Not Available Not Available No t [...] Not Available Not Available No t Available ramelteon 8 mg tablet TAKE 1 TABLET AT BEDTIME active Not Available Not Available No t Available chlorhexidin e gluconate 0.12 % mouthwash SWISH BY MOUTH WITH 15 ML (UNDILUTED) FOR 30 SECONDS, THEN SPIT (AFTER BREAKFAST AND BEFORE BEDTIME) active Not Available Not Available No t Available sodium fluoride 1.1 %-potassium nitrate 5 % dental paste USE 2-3X/DAILY, SPIT OUT EXCESS DO NOT RINSE WITH WATER. NO EATING OR DRINKING FOR 45 MIN AFTER active Not Available Not Available No t Available quetiapine 50 mg tablet TAKE 1 TABLET BY MOUTH EVERY DAY active Not Available Not Available No t Available cholecalcife rol (vitamin D3) 50 mcg (2,000 unit) capsule TAKE 1 CAPSULE BY MOUTH EVERY DAY active Not Available Not Available No t Available sodium,potas sium,mag sulfates 17.5 gram-3.13 gram-1.6 gram oral soln PLEASE SEE ATTACHED FOR DETAILED DIRECTIONS active Not Available Not Available N ot Available Myrbetriq 25 mg tablet,exten ded release TAKE 1 TABLET BY MOUTH EVERY DAY active Not Available Not Available No t Available potassium chloride ER 20 mEq tablet,exten ded release Take 1 tablet every day by oral route. 2024 active Not Available Not Available Not Avai lable Miconazole-3 4 % (200 mg)-2 % (9 gram) vaginal pack,prefil appl, cream APPLY 1 APPLICATORF UL VAGINALLY AT BEDTIME FOR 3 DAYS active Not Available Not Available N ot Available Vitals Date Recorded Oxygen saturation Oxygen saturation in Arterial blood by Pulse oximetry Body temperature Respiratory rate Heart rate Systolic And Diastolic Provider Name and Address Organization Details Last Updated DateTime 5 97 % 97 % 98.2 [degF] 17 /min 86 /min 128/82 mm[Hg] Not Available [facility] 5 16:32:24 Date Recorded Oxygen saturation Oxygen saturation in Arterial blood by Pulse oximetry Respiratory rate Heart rate Body temperature Systolic And Diastolic Provider Name and Address Organization Details Last Updated DateTime 5 97 % 97 % 18 /min 102 /min 98.9 [degF] 152/98 mm[Hg] Not Available [facility] 5 17:28:47 Date Recorded Body height Body mass index (BMI) Body weight Provider Name and Address Organization Details Last Updated DateTime 10/25/2024 142.24 cm 46.4 kg/m2 72814.62 g Marcie Tillman MD [address] [place] [address],[address] [place], [address], [place] - [employer] 10/25/2024 14:33:38 Date Recorded Body temperature Heart rate Oxygen saturation Oxygen saturation in Arterial blood by Pulse oximetry Respiratory rate Systolic And Diastolic Provider Name and Address Organization Details Last Updated DateTime 5 97.7 [degF] 86 /min 97 % 97 % 18 /min 118/80 mm[Hg] Not Available [employer] 5 14:13:36 Date Recorded Body height Oxygen saturation Oxygen saturation in Arterial blood by Pulse oximetry Respiratory rate Body temperature Body weight Heart rate Systolic And Diastolic Provider Name and Address Organization Details Last Updated DateTime 5 142.24 cm 96 % 96 % 18 /min 98 [degF] 72320.5 44 g 89 /min 120/84 mm[Hg] Not Available [employer] 5 14:17:17 Date Recorded Respiratory rate Body temperature Oxygen saturation Oxygen saturation in Arterial blood by Pulse oximetry Heart rate Systolic And Diastolic Provider Name and Address Organization Details Last Updated DateTime 5 18 /min 98.3 [degF] 99 % 99 % 90 /min 146/88 mm[Hg] Not Available [employer] 5 20:07:32 Social History None recorded. Functional Status None recorded. Mental Status None recorded. Family History Nothing Reported. Medical History No medical history recorded. Gynecological HistoryNo gynecological history recorded. Obstetrics History GPAL:G 0 P 0 0 0 0 Past Encounters Encounter ID Performer Location Encounter Start Date Encounter Closed Date Diagnosis/Indication Diagnosis SNOMED-CT Code Diagnosis ICD10 Code Diagnosis IMO Codes Diagnosis Note [id number] Spencer Lacy MD [facility] [address] [place] [phone] 05/08/2023 16:37:50 05/08/2023 21:46:30 Right side sciatica 7286703296 42398 M54.31 Hx of kidney stones but no renal impairment . Amenable to 1x dose of Toradol today. Discussed red flag signs for which to seek higher level of care. [id number] Bao Grant MD [facility] - [facility] [address] [place] [phone] 06/10/2023 15:56:55 06/11/2023 11:17:03 Arthritis 8103509 M19.90 As noted, we were called to see this patient regarding concerns of bilateral knee arthritis. Evaluation in the field was performed by my equipment operator/laborer colleague, as noted above, I provided real-time [...] or worsening serious symptoms, particular ly fever. [id number] FERNANDA COHN MD [facility] - [address] [phone] 12/26/2023 14:10:39 12/29/2023 08:17:01 Injury of elbow 035740611 S59.901A Evaluation in the field was performed by my equipment operator/laborer colleague, as noted above, I provided real-time [...] Vital signs are stable.Per discussion with the equipment operator/laborer, there is swelling of the right elbow [...] decision was made to refer her to [facility] ED via ambulance. -No ketorolac was administer ed, as it can delay healing in the case of a fracture.- An expect called at [facility] ED Primary care, consider__ _ Dispositio n: [facility] ED [id number] Lakshmi Jarvis MD [facility] - [address] [phone] 05/10/2024 16:20:31 05/10/2024 21:46:36 Fatigue 57956579 R53.83 Hypokalemia 96375296 E87 .6 [id number] Meli Crawford MD [address] [phone] 07/12/2024 17:28:39 07/12/2024 18:11:12 Urinary system finding 643290674 R39.9 [id number] Marcie Tillman MD [facility] [address] [phone] 10/25/2024 14:12:30 10/25/2024 21:22:00 Allergic conjunctivitis of left eye 8730629879 39861 H10.12 465078 cannot r/o early bacterial conjunctiv itis-we will prescribe antihistam ine as well as antibiotic and steroid drops. Has no visible herpes/no sinus congestion , voice normal. Advised needs eye staining and full ocular exam.. Advise good handwashin g before and after touching eyes to apply cool compresses to the eye several times per day -no rubbing the eyes /advised do not let the tip of the bottle actually touch the eye to prevent contaminat ion. Offered tylenol for headache- declines- has 650 mg at home- takes prn due to hx liver inflammati on-advised due to PMH max 3 doses per day-she verbalized understand ing of instructtim staley. [id number] Lakshmi Jarvis MD [facility] ED Medical [place] [phone] 10/31/2024 14:17:08 11/01/2024 09:43:56 Disorder of left eye proper 3658032314 H57.89 [id number] GARY OLEARY MD [facility] ED Medical [address] [id number] 11/25/2024 20:03:55 11/26/2024 12:12:14 Paravertebral muscle spasm 29071073 M62.238 3399712 Chronic low back pain 27 7896521 M54.50 G89.29 15240839 Health Concerns Section Related Observation LastModified by Organization Detai ls LastModified Time None Recorded Concern Status LastModified by Organization Details LastModified Time None Recorded Advance Directives Directive None Recorded Payers Insurance Date Sequence Insurance Name Policy Number Policy Oconnor Covered Member ID Oconnor Member ID Guarantor Name 11/25/2024 1 [facility] - DOS ON OR AFTER 2022 - DUAL ELIGIBLE - [employer] OPTIONS AND ONE CARE (MEDICARE REPLACEMENT/ADV ANTAGE - HMO) Addis Durant [id number] Addis Durant Notes Date Note Type Note Provider Name and Address Organization Details Recorded Time 05/10/2024 text/html CRC Nurse Triage Notes (Susana Murguia - RN): Reason For Request: Pt's PIPE PROCESSOR Emmie reporting weakness, dizziness, headache going on [...] Chronic Pain, Cholecystectomy PMH Reviewed at 05/10/2024 Allergies Reviewed at 05/10/2024:48 Comments: Patients PIPE PROCESSOR calling in to place a referral, patient identified via name and . PIPE PROCESSOR and patient a poor historian of PMH, [...] fever/chills. Patient would like to be evaluated. Attic Fans Mechanic Organization Information for [employer] Business Legal Name: [employer] Address: [address] [place] [address], Hydrotechnical Specialist: Keyon Wise MD CLIA No.: [id number] Attic Fans Mechanic POC Test Results from [facility] iSTAT Chem8+ (16:50:32) Na: 139 mEq/L K: 3.5 mEq/L Cl: 103 mEq/L iCa: 1.17 mmol/L TCO2: 24 mmol/L Glu: 136 mg/dL BUN: 13 mg/dL Crea: 0.7 mg/dL Hct: 37 % Hb: 12.6 g/dL A ....................... ....................... ....................... ....................... ....................... ....................... ... Attic Fans Mechanic Note From [facility] Owens: Dispatch to the [...] sounds CTA, A febrile, ABD soft nontender/distended, CVA tenderness, Pupils PERRL, Edema/swelling. [facility] consulted. BMP. Pt given 40MeQ of PO Potassium. Red flags discussed. All times are approximate. ....................... ....................... ....................... ....................... ....................... ....................... ... C Consulted: Lakshmi Jarvis ....................... ....................... ....................... ....................... ....................... ....................... ... Disposition: Norma Lakshmi Jarvis MD [address] [place] [address],[address], [place], [address] [employer] 05/10/2024 18:07:06 07/12/2024 text/html CRC Nurse Triage [...] Pain, Chronic Pain, Cholecystectomy PMH Reviewed at 07/12/2024:35 Allergies Reviewed at 07/12/2024:35 Comments: Additional PMH: Cerebral Palsy Hooking Machine Operator verified the patient's name//address and phone number. [...] emergency treatment if needed -Ambar Cortes RN Attic Fans Mechanic Organization Information for Adria Castillo Denator Legal Name: [employer] Address: [address] [place] [id number], Hydrotechnical Specialist: Keyon Wise MD CLIA No.: [id number] Attic Fans Mechanic POC Test Results from Adria Castillo - ALS Urine Dipstick (16:45:00) Urine leukocytes: 500+++ VIRIDIANA Urine nitrites: - NIT Urine urobilinogen: 0.2 3.5 URO Urine protein: 15+- 0.15 PRO Urine pH: 5.0 pH Urine blood: 50 BLO Urine specific gravity: 1.010 SG Urine ketones: 5+- 0.5 KET Urine bilirubin: 1 + 17 CARLOS Urine glucose: - GLU Attachments uploaded as part of this test result can be found under Documents section. ....................... ....................... ....................... ....................... ....................... ....................... ... Attic Fans Mechanic Note From Adria Castillo: Encountered patient, conscious [...] difficult urination. UA obtained, results uploaded for [facility] via [employer]. Skin warm, dry and of appropriate color for ethnicity. Head and neck free of trauma edema.-JVD. Breath sounds present clear and equal bilaterally. Abdomen soft non-tender and non-distended. Extremities of trauma and edema. The contacted: orders for urine culture obtained, to be delivered to the lab after call. One dose of PO Bactrim administered, [facility] to write prescription for further treatment at patient s pharmacy of choice. Patient advised to monitor for signs of sepsis, including fevers, increased difficulty urinating or changes in mentation. Patient verbalizes understanding and is comfortable with the plan of remaining at home. [facility] Lab Orders: urinalysis, dipstick: Performed culture, urine: Performed [facility] Medication Orders: sulfamethoxazole 800 mg-trimethoprim 160 mg tablet: Administered ....................... ....................... ....................... ....................... ....................... ....................... ... [facility] Consulted: Meli Crawford ....................... ....................... ....................... ....................... ....................... ....................... ... Disposition: Fulfilled Meli Crawford MD [address] [place] [address],[address], [place], [address], [employer] 07/12/2024 17:50:06 10/25/2024 text/html [facility] Nurse Triage Notes (Peter Cortes): Reason For Request: Suspected conjunctevitis, pt unable to get out of bed. Pt fell two weeks ago and is limited movement wiseDenies: Sudden onset of dental pain, unable to manage own secretions Nosebleed lasting longer than one hour; unable to stop bleeding Throat swelling/difficult swallowing Chief Complaints: Eye ComplaintPMH: Hypothyroidism, Anxiety Disorder, Gastroesophageal Reflux Disease (GERD), Chronic Back Pain, Chronic Pain, CholecystectomyPMH Reviewed at 10/25/2024:31Allergies Reviewed at 10/25/2024:31Comments: Additional PMH: Cerebral Palsy49 y.o female complains of Eye ComplaintPatient and patient's PIPE PROCESSOR are [place] speaking primarily, Relay Repairer# [id number] used for triage assessment. PIPE PROCESSOR reports redness in patient's L eye, as well as increased tearing. PIPE PROCESSOR is concerned that she could have conjunctivitis. Patient denies any changes in her vision. Patient reporting pain in L eye and pain on the R side of patient's head. PIPE PROCESSOR also reports patient fell a couple weeks ago and is having trouble moving. Patient is normally in a wheelchair at baseline but is having more trouble transferring since the fall. PIPE PROCESSOR reports patient is getting better since falling, is not complaining of pain from the fall. I provided information on the mobile health provider response time and advised the patient and/or caregiver to monitor reported signs and symptoms. I discussed the warning signs of when to seek emergency care -Ambar Cortes RN ....................... ....................... ....................... ....................... ....................... ....................... ... Attic Fans Mechanic Note From Adria Castillo: Encountered patient conscious, alert and supine. Patient reports she woke up this morning to an itchy left eye that has been producing more tears than usual as well as a headache around the eye. Patient denies waking up with a crusted eye and additionally denies fevers, nausea, vomiting, dizziness and changes in vision. Pictures of eyes uploaded via [employer]. Skin warm, dry and of appropriate color for ethnicity. Head and neck, free of trauma and edema. Pupils are round and reactive, patient does suffer from amblyopia of the right eye at baseline; left lateral sclera red and producing excess tears. Breath sounds present, clear and equal bilaterally. Abdomen is soft, non-tender and non-distended. Extremities free of trauma and edema. [facility] contacted: encourages patient to arrange an appointment with her pile driving superintendent for further evaluation. [facility] reports they will treat for a suspected conjunctivitis and will send prescriptions for treatment to a pharmacy of patient s choice. Patient was encouraged to monitor herself for changes in vision, fevers, nausea, vomiting, dizziness, worsening headaches and rashes. Patient was encouraged to seek further medical attention, including 911 if any of said symptoms were to develop. Patient verbalizes understanding of the plan and reports she is comfortable remaining home today, PIPE PROCESSOR actively working to arrange optometry appointment. ....................... ....................... ....................... ....................... ....................... ....................... ... [facility] Consulted: Marcie Tillman ....................... ....................... ....................... ....................... ....................... ....................... ... Disposition: FulfilledSEGMD: As above. Patient does not wear eye make-up. She denies any trauma or foreign body in the eye. She reports stinging and itching. She denies any facial or head rash or other URI symptoms Marcie Tillman MD [address] [facility],[address], [place], [address], [employer] 10/25/2024 19:19:13 10/31/2024 text/html CRC Nurse Triage Notes (StepanSusana melvin): Reason For Request: Pt was seen on 10/25 for pink eye>left side swelling Denies: Greene Flash, circumferential greene Greene reported with black tissue to the area Open skin area after a fall with uncontrolled bleeding Abscess/infection with streaking noted, presence of fever or without Chief Complaints: Wound Care PMH: Hypothyroidism, Anxiety Disorder, Gastroesophageal Reflux Disease (GERD), Chronic Back Pain, Chronic Pain, Cholecystectomy PMH Reviewed at 10/31/2024 Allergies Reviewed at 10/31/2024:35 Comments: 49 y.o female complains of Wound Care Referral taken via [employer]. Patient seen 10/25 for possible left eye conjunctivitis. They report patient is using the eye drops prescribed. They denies any redness or warmth to the eye, +swelling and drainage. They now note the left cheek to be swollen- they denies any new products, meds or foods, etc. The caller is not currently with patient, another PIPE PROCESSOR called her to report the swelling-- she is unsure but does not believe patient is having any lip or tongue swelling, shortness of breath or difficulty swallowing. Unknown fever/chills. They would like patient evaluated. Additional PMHx- cerebral palsy I provided information on the mobile health provider response time and advised the patient and/or caregiver to monitor reported signs and symptoms. I discussed the warning signs of when to seek emergency care. ....................... ....................... ....................... ....................... ....................... ....................... ... Attic Fans Mechanic Note From Mayra Chow: SC6 responds to the listed address for a 49 yof w/ a c/c of eye pain, swelling, and WING. Upon arrival, pt is found laying supine in bed watching TV. She makes eye contact w/ [facility] and says hello. She is generally [...] eye doctor, but doesn't know the date. [facility] obtains vital signs and focused assessment [...] around the L eye in the morning. [facility] contacts [facility] and discusses the above. [facility] recommends pt continue w/ Tylenol BID for pain and w/ allergy drops, but DC abx and follow-up w/ her eye doctor or PCP. [facility] also recommends warm compresses and keeping hands clean. [facility] reiterates [facility] recommendations and advises pt to also wash her bedding and use hand hoist mechanic or wash her hands often. [facility] advises pt to seek emergency care if she gets a high fever, worsening eye pain or WING, and visual changes. Pt gives her verbal understanding and thanks [facility] for coming. MIH is clear. Report completed by SHARON Chow [id number]. ....................... ....................... ....................... ....................... ....................... ....................... ... [facility] Consulted: Lakshmi Jarvis ....................... ....................... ....................... ....................... ....................... ....................... ... Disposition: Norma Jarvis MD [address] [place] [address],[address], [place], [address] [employer] 10/31/2024 15:49:32 11/25/2024 text/html [facility] Nurse Triage Notes (Hallie Vela): Reason For Request: Pt is not feel well, having back pain and difficulty walking Patient Reports: Frequent and increased urination with flank painDenies: Unable to void greater than 5 hours Erection that will not go away after 2 hours Fall or trauma that results in urinary incontinence in the setting of pain Fall or injury that results in incontinence in the absence of pain Lower back pain either unilateral or bilateral, unable to void, painful urination -hematuria Painful urination Painful urination with or without fever Inability to fully empty bladder Chief Complaints: Back PainPMH: Hypothyroidism, Anxiety Disorder, Gastroesophageal Reflux Disease (GERD), Chronic Back Pain, Chronic Pain, CholecystectomyH Reviewed at 11/25/2024 - :[facility] at 11/25/2024 - :Comments: 49 y.o female Call completed with an aerial photograph interpreter PIPE PROCESSOR calling for a Patient for back pain.PT does usually have back pain. She was doing something in the house and she has increased pain.She is unable to walk well due to the pain. She has given her OTC pain medication, but it has not helped.She does have a UTI , she denies any treatment at this but also stated she had not gotten back any of the results at this timeShe also almost fell down due to the pain level.She denies any burning / urgency I provided information on the mobile health provider response time and advised the patient and/or caregiver to monitor reported signs and symptoms. I discussed the warning signs of when to seek emergency care. ....................... ....................... ....................... ....................... ....................... ....................... ... Attic Fans Mechanic Note From Lamonte Owens: Dispatched to the call address for the female with back pain. Pt states she was transitioning from her bed to the commode and almost fell but caught herself. shortly after that she started feeling pain that was 3 days ago. Pt has not taken any OTC pain medication, when asked why she replied with I don't know . Pt advises she provided a urine sample to her PCP 2 days ago and is awaiting the results. She opted to no provide a urine sample this evening and rather wait for her doctor. Pt denies chest pain, diff breathing/sob, fevers, n/v/d, black or bloody stools or other complaints at this time. Pt was found opening door, CAOx4, airway open and patent, breathing non labored, able to speak in full sentences, -JVD, -HEENT, skin PWD with good turgor, lungs CTA mucous membranes pink and moist, pupils PERRL, abd soft non tender/distended, +CMSx4, -edema/swelling, afebrile. back pain. Pt was assessed. [facility] consulted. Pt given 30mg IM Ketorolac after confirming 5 med rights. Red flags discussed. ALL times are approx. [facility] Medication Orders: ketorolac 30 mg/mL injection solution: Administered ....................... ....................... ....................... ....................... ....................... ....................... ... [facility] Consulted: Gary Oleary ....................... ....................... ....................... ....................... ....................... ....................... ... Disposition: Fulfilled GARY OLEARY MD [address] [facility],[address], [place], [address], [employer] 11/25/2024 21:18:58 OBGyn Episode No OBEpisode recorded.
--- OUTSIDE RECORDS SUMMARY | 2025-01-31 17:02 | XMS_ITS | Encounter Summary ---
Author Organization [facility] Address [address] [place] [address] Phone Care Team Providers Care Electrician Radio Name Role Phone Carlos Hunter MD Primary Care Provider [phone] Pcp, Unknown Primary Care Provider UnavailDeonte Fitzgerald Primary Care Provider + Pcp, Unknown Unavailable Unavailable Yajaira Harley MD Unavailable [phone] Toro Miller MD Unavailable [phone] Encounter Details Date Type Department Care Team (Late st Contact Info) Description 08/02/2019 Transcribe Orders [facility] Specimen Processing [address] [place] [address] Miladis Pulido, DELICATE FABRICS PRESSER [address] [facility] [address] [place], [place] [id number] [email or web address] Suspected Covid-19 Virus Infection (Primary Dx) Social [...] this encounter Results * COVID-19 PCR Order (08/02/2019 4:18 PM EDT) Specimen Source NASOPHARYNGEAL SWAB (DELICATE FABRICS PRESSER) [facility] COVID Testing Status In-house testing being performed [facility] Other 08/02/2019 4:18 PM EDT 08/02/2019 4:33 PM EDT us Miladis Pulido DELICATE FABRICS PRESSER LAB GENERAL ORDERABLES Final Re sult [facility] [address] [place] [address] documented in this encounter Visit Diagnoses Diagnosis Suspected COVID-19 virus infection- Primary documented in this encounter Additional Health Concerns Infection Onset Date Last Indicated Resolved Time COVID-19 Comment:[facility] 07/20/2019 07/20/2019 08/28/2019 1:2 5 AM EDT CoV-Exposed Comment:[facility] 08/10/2019 08/10/2019 08/10/2019 9:3 4 AM EDT CoV-Recovered Comment:Patient has recovered from COVID-19. Contact infection control with any questions. 09/08/2019 09/08/2019 09/15/2019 1:27 AM E DT documented as of this encounter Care Teams Electrician Radio Relationship Specialty Start Date End Date Carlos Hunter MD [address] [facility] [place] [address] [email or web address] PCP - General Internal Medicine 07/02/18 12/05/21 Pcp, Unknown PCP - General 12/06/21 01/20/25 Deonte Carmona PA [address] [place] [id number] PCP - General Physician Child Protective Services Social Worker 01/21/25 Pcp, Unknown 01/21/25 Yajaira Harley MD [address] [place] [id number] Endocrinology 07/20/18 Toro Miller MD [address] [facility] [facility] [address] [place] [address] [email or web address] Urology 07/21/18 documented as of this encounter Additional Source Comments The information contained in this document represents components of the legal health record. It is not the complete legal health record.[facility]
--- OUTSIDE RECORDS SUMMARY | 2025-01-31 17:03 | XMS_ITS | Clinical Summary ---
Author Organization [facility] Address [address] [facility] [address] [place] [id number] Phone Care Team Providers Care Laundry Superintendent Name Role Phone Deonte Carmona Primary Care Provider + Pcp, Unknown Unavailable Unavailable Yajaira Harley MD Unavailable [phone] Toro Miller MD Unavailable Allergies Active Allergy Reactions Criticality Noted Date Comments Zolpidem Nausea and/or Vomiting 07/21/2018 Trazodone Nausea and/or Vomiting 07/21/2018 Zolmitriptan Nausea and/or Vomiting 07/21/2018 Medications docusate sodium (COLACE) 100 MG capsule Take 100 mg by mouth 2 (two) times a day. Active cholecalciferol (VITAMIN D3) 1,000 unit tablet Take 1,000 Units by mouth daily. Active levothyroxine (SYNTHROID,LEVOT HROID) 25 MCG tablet Take 25 mcg by mouth every morning. Active desmopressin (DDAVP) 0.1 MG tablet Take 0.1 mg by mouth 2 (two) times a day. Active citalopram hydrobromide (CITALOPRAM ORAL) Take 5 mg by mouth daily. Active senna (SENOKOT) 8.6 mg tablet Take 2 tablets by mouth 2 (two) times a day. 120 tablet 5 9 Active MAPAP ARTHRITIS PAIN 650 mg CR tablet TAKE 2 TABLETS BY MOUTH TWICE A DAY 120 tablet 5 9 Active venlafaxine (EFFEXOR-ER,) 150 mg TR24 Take 1 tablet (150 mg total) by mouth nightly at bedtime. 30 tablet 5 9 Active doxepin (SINEQUAN) 150 MG capsule Take 1 capsule (150 mg total) by mouth nightly at bedtime. 30 capsule 5 9 Active zaleplon (SONATA) 5 MG capsule Take 1 capsule (5 mg total) by mouth nightly at bedtime. 30 capsule 9 Active QUEtiapine (SEROQUEL) 50 MG tablet Take 1 tablet (50 mg total) by mouth daily with breakfast. 30 tablet 2 9 Active traMADol (ULTRAM) 50 mg tablet Take 1 tablet (50 mg total) by mouth 2 (two) times a day as needed for pain (specific location in comments). 56 tablet 9 Active QUEtiapine (SEROQUEL) 200 MG tablet Take 1 tablet (200 mg total) by mouth nightly at bedtime. 90 tablet 1 9 Active cyanocobalamin, vitamin B-12, 1000 MCG tablet Take 1 tablet (1,000 mcg total) by mouth daily. 90 tablet 1 9 Active pregabalin (LYRICA) 150 MG capsule TAKE ONE CAPSULE BY MOUTH TWICE A DAY 60 capsule 9 Active cyclobenzaprine (FLEXERIL) 10 MG tablet TAKE 1 TABLET BY MOUTH THREE TIMES A DAY 270 tablet 9 Active Additional Information Patient taking differently: 10 mg Oral 3 times daily PRN, Reported on 08/10/2019 omeprazole (PRILOSEC) 20 mg TbEC Take 20 mg by mouth daily before breakfast. Active Active Problems Problem Noted Date Diagnosed Date Small bowel obstruction 08/10/2019 Overview (08/16/2019): Hospitalized at [facility] July 2019, treated successfully with nasogastric decompression. Assessment & Plan (08/12/2019 2:51 PM EDT): Marked improvement. These GI symptoms are probably late manifestations of her Covid infection. The fact that she wants to advance her diet is reassuring. Plan re-feed. The patient claims to have had some black stools so we will heme test stools although her hemoglobin is rising. If she tolerates a regular diet then she could go home tomorrow Acquired hypothyroidism 07/21/2018 Assessment & Plan (08/10/2019 1:39 PM EDT): Continue thyroid hormone replacement Assessment & Plan (07/21/2018 8:55 AM EDT): Follow-up as scheduled with endocrine. Gastroesophageal reflux disease 07/21/2018 Assessment & Plan (08/10/2019 1:41 PM EDT): Continue PPI Assessment & Plan (07/21/2018 8:56 AM EDT): Well-controlled, continue current medication. Renal stone 07/21/2018 Chronic constipation 07/21/2018 Assessment & Plan (07/21/2018 8:56 AM EDT): Restart senna. She may titrate the dose with a goal of trying to have at least one soft bowel movement daily. Chronic midline low back pain without sciatica 0 07/21/2018 Assessment & Plan (07/21/2018 8:58 AM EDT): Well-controlled, continue current medication. Major depression, chronic 07/20/2018 Assessment & Plan (08/12/2019 2:52 PM EDT): We will continue usual medications including quetiapine, citalopram, effexor and doxepin assuming she is able to tolerate. Assessment & Plan (07/21/2018 8:57 AM EDT): Generally doing well although she sounds like her anxiety is somewhat worse. I asked the patient to discuss with her therapist her anxiety. If her therapist thinks she may need to occasion change, while the clinic is waiting for a new prescriber I would consider adding a morning dose of quetiapine. Spastic diplegic cerebral palsy 07/20/2018 Assessment & Plan (07/21/2018 8:56 AM EDT): Stable. I suspect the patient's weight is continue to go up. I encouraged her to work on her portions to help minimize her disability due to obesity. Primary central diabetes insipidus 07/20/2018 Assessment & Plan (08/12/2019 2:52 PM EDT): Current sodium level normal at 138. --Continue DDAVP --Watch Na levels closely while n.p.o. and receiving supplemental fluids. Assessment & Plan (07/21/2018 8:55 AM EDT): Well-controlled, continue current medication and follow-up as scheduled with endocrine. Resolved Problems Problem Noted Date Diagnosed Date Resolved Date COVID-19 08/10/2019 08/13/2019 Assessment & Plan (08/11/2019 5:22 PM EDT): Likely recovered Covid. Social History Tobacco Use Types Packs/Day Years Used Date Smoking Tobacco: Never Assessed Education Answer Date Recorded Are you interested in more education? Not on stanislaw e 01/24/2025 Are you concerned about learning? Not on file 01/24/2025 No 01/24/2025 No 01/24/2025 Digital Access Answer Date Recorded No 01/24/2025 No 01/24/2025 Reliable internet access at home? Not on file 01/24/2025 Device with a working camera? Not on file Comments Unknown Sex and Gender Information Value Date Recorded Sex Assigned at Not on file Legal Sex Female 3:44 PM EDT Gender Identity Not on file Sexual Orientation Not on file Last Filed Vital Signs Vital Sign Reading Time Taken Comments Blood Pressure 110/78 08/13/2019 1:26 PM EDT Pulse 82 08/13/2019 1:26 PM EDT Temperature 36.5 C (97.7 F) 08/13/2019 1:26 PM EDT Respiratory Rate 18 08/13/2019 1:26 PM EDT Oxygen Saturation 94% 08/13/2019 1:26 PM EDT Inhaled Oxygen Concentration - - Weight 84.4 kg (186 lb) 08/10/2019 4:39 AM EDT Height 144.8 cm (4' 9 ) 08/10/2019 4:39 AM EDT Body Mass Index 40.25 08/10/2019 4:39 AM EDT Plan of Treatment Health Maintenance Due Date Last Done Comments LIPID PANEL 1973 DEPRESSION SCREENING 1985 SMOKING Hx and SMOKELESS TOBACCO SCREENING 1986 HEPATITIS C SCREENING 09/25/1991 HIV ONE-TIME SCREENING (18-6 5 YEARS) 09/25/1991 PAP SMEAR 1994 MAMMOGRAM 2013 COLOGUARD 2018 COLONOSCOPY 2018 COLORECTAL CANCER SCREENING 2018 FIT TEST 2018 FOBT 2018 SIGMOIDOSCOPY 2018 VIRTUAL COLONOSCOPY 2018 TSH LEVEL 08/11/2020 08/12/2019 PNEUMOCOCCAL VACCINES (50+ years) (1 of 1 - PCV) 09/25/2023 ZOSTER VACCINES (1 of 2) 09/25/2023 INFLUENZA VACCINE (#1) 2024 0, 03/11/2019, 02/13/2016 COVID-19 VACCINE (2 - 2024-2 6 season) 2024 07/31/2020 Adult Td,Tdap Booster 03/11/2029 03/11/2019 RSV VACCINE (1 - 1-dose 75+ series) 2048 HEPATITIS A VACCINES Aged Out No long er eligible based on patient's age to complete this topic HIB VACCINES Aged Out No longer eligi ble based on patient's age to complete this topic MENINGOCOCCAL VACCINES (ACWY) Aged Out No longer eligible based on patient's age to complete this topic MENINGOCOCCAL VACCINES (B) Aged Out N o longer eligible based on patient's age to complete this topic Medical Devices Not on file Procedures Procedure Name Priority Date/Time Associated Diagnosis Comments TSH WITH REFLEX Routine 08/12/2019 5:37 AM EDT from Last 3 Months or Most Recently Relevant to Health Maintenance Results * TSH with reflex (08/12/2019 5:37 AM EDT) TSH 4.17 0.27 - 4.20 uIU/mL [facility] Blood 08/12/2019 5:37 AM EDT 08/12/2019 6:18 AM EDT us Danny Palacio MD LAB BLOOD BKR ORDERABLES Final R esult [address] [id number] from Last 3 Months or Most Recently Relevant to Health Maintenance Insurance CARE MEDICARE REPLACEMENT [employer] [id number] [place] [address] CARE MEDICARE REPLACEMENT MEDICARE REPLACEMENT [address] [place] [address] MEDICARE REPLACEMENT MEDICARE REPLACEMENT MEDICARE REPLACEMENT MEDICARE REPLACEMENT MEDICARE REPLACEMENT MEDICARE REPLACEMENT [place] [id number] CARE MEDICARE REPLACEMENT [employer] [address] MEDICARE REPLACEMENT [employer] [address] CARE MEDICARE REPLACEMENT Advance Directives For more information, please contact: [phone] (9AM - 5PM [facility], Friday-Friday) Documents on File Type Date Recorded Patient Computer Programming Manager Anabella CISNEROSST 08/16/2019 11:42 AM Healthcare Proxy 08/11/2019 HCP 11/13/19 14 * Full Code (Confirmed) (Latest Code Status on File) Date Activated Date Inactivated Comments 08/11/2019 8:18 AM Question Answer Comments Code Status Confirmed With: Patient * Full Code (Presumed) Date Activated Date Inactivated Comments 08/10/2019 10:37 AM 08/11/2019 8:18 AM Care Teams Laundry Superintendent Relationship Specialty Start Date End Date Deonte Carmona PA [address] [place] [id number] PCP - General Physician [employer] Watch Hands Dipper 01/21/25 Pcp, Unknown 01/21/25 Yajaira Harley MD [address] [place] [id number] [email or web address] Endocrinology 07/20/18 Toro Miller MD [address] [phone] [email or web address] 07/21/18 Additional Source Comments The information contained in this document represents components of the legal health record. It is not the complete legal health record.[facility]
--- OUTSIDE RECORDS SUMMARY | 2025-01-31 17:03 | XMS_ITS | Clinical Summary ---
Author Organization [facility] Address [address] [place] [address] Phone Care Team Providers Care Coiled Tubing Supervisor Name Role Phone Deonte Carmona Primary Care Provider [phone]- [phone] Allergies Active Allergy Reactions Criticality Noted Date [...] available. 2 each 01/10/20 25 026 Active amLODIPine (NORVASC) 5 mg tablet Take 1 [...] Department Care Team Description 01/11/2025 Results Follow-Up [facility] Emergency [address] [place] [address] Clare Chahal RN 01/09/2025 1:11 PM EDT - 01/09/2025 9:[address] [facility] Emergency [address] [place] [phone] Arcenio Platt MD Mersier, Jasmine, DO Chronic low back pain without sciatica, unspecified back pain laterality (Primary Dx) Discharge Disposition: Home or Self Care 12/13/2024 4:08 PM EDT - 12/13/2024 11:[address] [facility] Emergency [address] [place] [phone] Toro Johnson MD Nonintractable headache, unspecified chronicity pattern, unspecified headache type (Primary Dx); Orbital myositis of left side; Recurrent UTI Discharge Disposition: Home or Self Care 11/03/2024 3:09 PM EDT - 11/03/2024 9:[address] [facility] Emergency [address] [place] [phone] Lubna Bach MD Other migraine without status migrainosus, not intractable (Primary Dx); Chemosis of left conjunctiva Discharge Disposition: Home or Self Care from Last 3 Months Surgical History Surgery Date Site/Laterality Comments APPENDECTOMY OTHER SURGICAL HISTORY Transsphenoidal hypophysectomy OTHER SURGICAL HISTORY Multiple surgeries at [facility] related to cerebral palsy Medical History Medical History Date Comments Diabetes mellitus ([facility] V24, [facility] V28) Hypertension Depression Cerebral palsy ([facility] V24, [facility] V28) Diabetes insipidus ([facility] V24) Hypothyroidism Hyperlipidemia Migraines Anxiety [...] 2) 09/25/2023 Depression Screening 03/31/2024 COVID-19 Vaccine ( season) 2024 02/14/2021, 07/31/2020 Influenza Vaccine (#1) [...] Signed Date: 01/09/2025 16:16 ET Workstation ID: [id number] Transcribed By: Self Edit Transcribed Date: 01/09/2025 16:11 ET Narrative 01/09/2025 4:16 PM EDT INDICATION: Back pain TECHNIQUE: Noncontrast CT scan of the lumbar spine was obtained. Scanner: Memeo 64 slice VCT Dose reduction technique: ASIR [...] of the lumbar spine was obtained. Scanner: Memeo 64 slice VCT Dose reduction technique: ASIR [...] Signed Date: 01/09/2025 16:16 ET Workstation ID: [id number] Transcribed By: Self Edit Transcribed Date: 01/09/2025 16:11 ET us Arcenio Platt MD IMG CT PROCEDURES Final Result * CT Thoracic [...] Signed Date: 01/09/2025 16:11 ET Workstation ID: [id number] Transcribed By: Self Edit Transcribed Date: 01/09/2025 15:58 ET Narrative 01/09/2025 4:11 PM EDT INDICATION: Back pain TECHNIQUE: Noncontrast CT scan of the thoracic spine was obtained. Scanner: [employer] LightSpeed 64 slice VCT Dose reduction technique: ASIR [...] Lobulated renal upper poles bilaterally. Procedure Note Lj Ivey MD - 01/09/2025 INDICATION: Back pain TECHNIQUE: Noncontrast CT scan of the thoracic spine was obtained. Scanner: [employer] LightSpeed 64 slice VCT Dose reduction technique: ASIR [...] Signed Date: 01/09/2025 16:11 ET Workstation ID: [id number] Transcribed By: Self Edit Transcribed Date: 01/09/2025 15:58 ET us Arcenio Platt MD IMG CT PROCEDURES Final Result * (ABNORMAL) CBC auto differential (01/09/2025 3:18 PM EDT) Only the most recent of2 resultswithin the time period is included. WBC 8.5 4.8 - 10.8 K/mcL LAB HEMETOLOGY METHOD 01/09/2025 3:43 PM EDT [facility] RBC 3.90 3.80 - 4.80 M/mcL LAB HEMETOLOGY METHOD 01/09/2025 3:43 PM EDT [facility] Hemoglobin 12.9 11.5 - 16.0 g/dL LAB HEMETOLOGY METHOD 01/09/2025 3:43 PM EDT [facility] Hematocrit 38.1 35.0 - 47.0 % LAB HEMETOLOGY METHOD 01/09/2025 3:43 PM EDT [facility] MCV 99.0(H) 79.0 - 98.0 FL LAB HEMETOLOGY METHOD 01/09/2025 3:43 PM EDT [facility] MCH 33.5(H) 27.0 - 32.0 pcg LAB HEMETOLOGY METHOD 01/09/2025 3:43 PM EDT [facility] MCHC 33.9 32.0 - 37.0 g/dL LAB HEMETOLOGY METHOD 01/09/2025 3:43 PM EDT [facility] RDW 14.6 11.0 - 15.0 % LAB HEMETOLOGY METHOD 01/09/2025 3:43 PM EDT [facility] Platelets 240 130 - 400 K/mcL LAB HEMETOLOGY METHOD 01/09/2025 3:43 PM EDT [facility] MPV 9.6 7.0 - 11.0 FL LAB HEMETOLOGY METHOD [facility] NRBC 0.0 <1.0 % LAB HEMETOLOGY METHOD 01/09[facility]2025 3:[facility] NRBC Absolute 0.00 <0.10 K/mcL LAB HEMETOLOGY METHOD 01/09/2025 3:43 PM EDT [facility] Neutrophils Relative 82.3 % LAB HEMETOLOGY METHOD 01/09/2025 3:43 PM EDT [facility] Lymphocytes Relative 13.4 % LAB HEMETOLOGY METHOD [facility]/09[facility]2025 3[facility] Monocytes Relative 3.1 % LAB HEMETOLOGY METHOD 01/09/2025 3:[facility] Eosinophils Relative 0.0 % LAB HEMETOLOGY METHOD 01/09/2025 3:43 PM EDT [facility] Basophils Relative 0.1 % LAB HEMETOLOGY METHOD 01/09/2025 3:[facility] Immature Granulocytes Relative 1.1 % LAB HEMETOLOGY METHOD 01/09/2025 3:43 PM EDT [facility] Neutrophils Absolute 6.98 1.50 - 7.00 K/mcL LAB HEMETOLOGY METHOD 01/09/2025 3:43 PM EDT [facility] Lymphocytes Absolute 1.14 1.00 - 5.00 K/mcL LAB HEMETOLOGY METHOD 01/09/2025 3:43 PM EDT [facility] Monocytes Absolute 0.26 0.20 - 1.00 K/mcL LAB HEMETOLOGY METHOD 01/09/2025 3:43 PM EDT [facility] Eosinophils Absolute 0.00 0.00 - 0.50 K/mcL LAB HEMETOLOGY METHOD 01/09/2025 3:43 PM EDT [facility] Basophils Absolute 0.01 0.00 - 0.20 K/mcL LAB HEMETOLOGY METHOD 01/09/2025 3:43 PM EDT [facility] Immature Granulocytes Absolute 0.09(H) 0.00 - 0.03 K/mcL LAB HEMETOLOGY METHOD 01/09/2025 3:43 PM EDT [facility] Blood Venous blood specimen / Unknown Venipuncture / Unknown 01/09/2025 3:18 PM EDT 01/09/2025 3:38 PM EDT us Arcenio Platt MD LAB BLOOD ORDERABLES Final Res ult [facility] [address] [place] [address], * (ABNORMAL) Comprehensive Metabolic Panel (CMP) (01/09/2025 3:18 PM EDT) Only the most recent of2 resultswithin the time period is included. Sodium 134 133 - 145 mmol/L LAB CHEMISTRY METHOD 01/09/2025 4:04 PM EDT [facility] Potassium 4.8 3.5 - 5.5 mmol/L LAB CHEMISTRY METHOD 01/09/2025 4:04 PM EDT [facility] Chloride 101 96 - 110 mmol/L LAB CHEMISTRY METHOD 01/09/2025 4:04 PM [facility] CO2 25 21 - 32 mmol/L LAB CHEMISTRY METHOD 01/09/2025 4:04 PM [facility] Anion Gap 8 3 - 11 LAB CHEMISTRY METHOD 01/09/2025 4:04 PM [facility] Glucose 150(H) 70 - 100 mg/dL LAB CHEMISTRY METHOD 01/09/2025 4:04 PM [facility] BUN 24 5 - 25 mg/dL LAB CHEMISTRY METHOD 01/09/2025 4:04 PM [facility] Creatinine 0.98 0.50 - 1.10 mg/dL LAB CHEMISTRY METHOD 01/09/2025 4:04 PM [facility] eGFR 70 >=60 mL/min/1. 73m2 LAB CHEMISTRY METHOD 01/09/2025 4:04 PM [facility] Comment:Calculation based on the Chronic Kidney Disease Epidemiology Collaboration (CKD-EPI) equation refit without adjustment for race. BUN/Creatinine Ratio 24.5 LAB CHEMISTRY METHOD 01/09/2025 4:04 PM [facility] Calcium 9.4 8.5 - 10.5 mg/dL LAB CHEMISTRY METHOD 01/09/2025 4:04 PM [facility] AST (SGOT) 31 10 - 42 unit/L LAB CHEMISTRY METHOD 01/09/2025 4:04 PM [facility] ALT (SGPT) 75(H) 10 - 60 unit/L LAB CHEMISTRY METHOD 01/09/2025 4:04 PM [facility] Alkaline Phosphatase 109 42 - 121 unit/L LAB CHEMISTRY METHOD 01/09/2025 4:04 PM [facility] Total Protein 6.4 6.0 - 8.0 g/dL LAB CHEMISTRY METHOD 01/09/2025 4:04 PM [facility] Albumin 3.7 3.2 - 5.0 g/dL LAB CHEMISTRY METHOD 01/09/2025 4:04 PM EDT [facility] Total Bilirubin 0.4 0.0 - 1.4 mg/dL LAB CHEMISTRY METHOD 01/09/2025 4:04 PM [facility] Blood Venous blood specimen / Unknown Venipuncture / Unknown 01/09/2025 3:18 PM EDT 01/09/2025 3:38 PM EDT us Arcenio Platt MD LAB BLOOD ORDERABLES Final Res ult [facility] [address] [place] [address], [place] [phone] * (ABNORMAL) Urinalysis with reflex microscopic and culture (01/09/2025 2:50 PM EDT) Specific [place] Urine 1.013 1.003 - 1.030 LAB URINALYSIS - AUTOMATED METHOD 01/09/2025 3:32 PM [facility] pH, Urine 6.5 5.0 - 8.0 pH LAB URINALYSIS - AUTOMATED METHOD 01/09/2025 3:32 PM [facility] Leukocytes, Urine Large(A) Negative LAB URINALYSIS - AUTOMATED METHOD 01/09/2025 3:32 PM [facility] Nitrite, Urine Negative Negative LAB URINALYSIS - AUTOMATED METHOD 01/09/2025 3:32 PM [facility] Protein, Urine Negative <=Trace mg/dL LAB URINALYSIS - AUTOMATED METHOD 01/09/2025 3:32 PM [facility] Glucose, Urine Negative Negative mg/dL LAB URINALYSIS - AUTOMATED METHOD 01/09/2025 3:32 PM [facility] Ketones, Urine Negative Negative mg/dL LAB URINALYSIS - AUTOMATED METHOD 01/09/2025 3:32 PM [facility] Urobilinogen, Urine 0.2 0.2 - 1.0 mg/dL LAB URINALYSIS - AUTOMATED METHOD 01/09/2025 3:32 PM EDT [facility] Bilirubin, Urine Negative Negative LAB URINALYSIS - AUTOMATED METHOD 01/09/2025 3:32 PM EDT [facility] Blood, Urine Trace(A) Negative LAB URINALYSIS - AUTOMATED METHOD 01/09/2025 3:32 PM EDT [facility] RBC, Urine 3.5 0 - 4 /HPF LAB URINALYSIS - AUTOMATED METHOD 01/09/2025 3:32 PM EDT [facility] WBC, Urine 69.4(H) 0 - 4 /HPF LAB URINALYSIS - AUTOMATED METHOD 01/09/2025 3:[facility] Squamous Epithelial, Urine 31 0 - 60 /LPF LAB URINALYSIS - AUTOMATED METHOD 01/09/2025 3:32 PM EDT [facility] Bacteria, Urine Many(A) Negative /HPF LAB URINALYSIS - AUTOMATED METHOD 01/09/2025 3:32 PM EDT [facility] Hyaline Casts, Urine 0.8 0 - 3 /LPF LAB URINALYSIS - AUTOMATED METHOD 01/09/2025 3:32 PM T [facility] Urine Urine specimen obtained by clean catch procedure / Unknown Non-blood Collection / Unknown 01/09/2025 2:50 PM EDT 01/09/2025 3:24 PM EDT us Arcenio Platt MD LAB URINE ORDERABLES Final Res ult [facility] [address] [place] [address], * Varela urine culture tube (01/09/2025 2:50 PM EDT) Extra Tube Hold for add-ons. 01/09/2025 5:01 PM EDT [facility] Comment:Auto resulted. Urine Urine specimen obtained by clean catch procedure / Unknown Non-blood Collection / Unknown 01/09/2025 2:50 PM EDT 01/09/2025 3:24 PM EDT us Arcenio Platt MD LAB URINE ORDERABLES Final Res ult [facility] [address] [place] [address], [place] [phone] * (ABNORMAL) Culture urine (01/09/2025 2:50 PM EDT) Culture, Urine >=100,000 CFU/mL Klebsiella pneumoniae ssp pneumoniae(A) NATALIA 01/11/2025 8:27 AM EDT [facility] Comment: This is an edited [...] pneumoniae Trimethoprim/Sulfamethoxazo le NATALIA 40 ug/ml: Susceptible us Arcenio Platt MD LAB MICROBIOLOGY - GENERAL ORD ERABLES Final Result [facility] [address] [place] [address], [place] [phone] * (ABNORMAL) Urinalysis with reflex microscopic (12/13/2024 8:53 PM EDT) Specific [place] Urine 1.025 1.003 - 1.030 LAB URINALYSIS - AUTOMATED METHOD 12/13/2024 9:13 PM EDT [facility] pH, Urine 6.0 5.0 - 8.0 pH LAB URINALYSIS - AUTOMATED METHOD 12/13/2024 9:13 PM [facility] Leukocytes, Urine Moderate(A) Negative LAB URINALYSIS - AUTOMATED METHOD 12/13/2024 9:[facility] Nitrite, Urine Positive(A) Negative LAB URINALYSIS - AUTOMATED METHOD 12/13/2024 9:13 PM [facility] Protein, Urine Trace <=Trace mg/dL LAB URINALYSIS - AUTOMATED METHOD 12/13/2024 9:13 [facility] Glucose, Urine Negative Negative mg/dL LAB URINALYSIS - AUTOMATED METHOD 12/13/2024 9:13 PM [facility] Ketones, Urine Trace(A) Negative mg/dL LAB URINALYSIS - AUTOMATED METHOD 12/13/2024 9:13 PM [facility] Urobilinogen , Urine 1.0 0.2 - 1.0 mg/dL LAB URINALYSIS - AUTOMATED METHOD 12/13/2024 9:13 PM [facility] Bilirubin, Urine Negative Negative LAB URINALYSIS - AUTOMATED METHOD 12/13/2024 9:13 PM EDT [facility] Blood, Urine Negative Negative LAB URINALYSIS - AUTOMATED METHOD 12/13/2024 9:13 PM T [facility] RBC, Urine 8.0(H) 0 - 4 /HPF LAB URINALYSIS - AUTOMATED METHOD 12/13/2024 9:13 PM EDT [facility] WBC, Urine 52.2(H) 0 - 4 /HPF LAB URINALYSIS - AUTOMATED METHOD 12/13/2024 9:13 PM EDT [facility] Squamous Epithelial, Urine >100(H) 0 - 60 /LPF LAB URINALYSIS - AUTOMATED METHOD 12/13/2024 9:13 PM [facility] Bacteria, Urine Many(A) Negative /HPF LAB URINALYSIS - AUTOMATED METHOD 12/13/2024 9:[facility] Hyaline Casts, Urine 7.2(H) 0 - 3 /LPF LAB URINALYSIS - AUTOMATED METHOD 12/13/2024 9:13 PM [facility] Urine Urine specimen obtained by clean catch procedure / Unknown Non-blood Collection / Unknown 12/13/2024 8:53 PM EDT 12/13/2024 9:07 PM EDT us Toro Johnson MD LAB URINE ORDERABLES Final Result [facility] [address] [place] [address], from Last 3 Months Insurance [employer] Member Subscriber Plan / Payer (Ef fective 2017-Present) Name:WALE DURANT Relation to Subscriber:Self Name:Wale Durant Payer ID:[id number] Group ID:[id number] Type:Not on file Address: [place] [address] [phone] Advance Directives Documents on File Type Date Recorded 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 Care Teams Coiled Tubing Supervisor Relationship Specialty Start Date End Date Deonte Carmona PA [address] [place] [phone] PCP - General Physician Blade Boner 05/01/24
--- OUTSIDE RECORDS SUMMARY | 2025-01-31 17:03 | XMS_ITS | Encounter Summary ---
Author Organization [facility] Address [address] [place] [address] Care Team Providers Care Inspector Conveyor Line Name Role Phone Deonte Carmona Primary Care Provider [phone]- [phone] Encounter Details Date Type Department Care Team (Late st Contact Info) Description 09/09/2024 Lab Requisition [facility] - Main Lab [address] [facility] [place] [address] Starr Mcmillan PA [address] [place], [place] [id number] Urinary tract infection, site not specified Social [...] pneumoniae(A) NATALIA 09/11/2024 10:52 AM EDT [facility] Comment: This is an edited [...] ug/ml: Susceptible Klebsiella pneumoniae ssp pneumoniae Ceftazidime NAATLIA <=0.5 ug/ml: Susceptible Klebsiella pneumoniae ssp pneumoniae [...] - GENERAL ORD ERABLES Final Result [facility] [address] [place] [address], documented in this encounter Visit Diagnoses Diagnosis Urinary tract infection, site not specified documented in this encounter Care Teams Inspector Conveyor Line Relationship Specialty Start Date End Date Deonte Carmona PA [address] [place] [phone] PCP - General Physician Sales And Service Associate 05/01/24 documented as of this encounter
== END 2025-01-31 13:01 | disposition home or self-care (01) ==
LOC: HO.LNP 13:00
PROVIDERS: Visit Provider Physician Assistant
DX: R30.0 Dysuria (principal); R32 Unspecified urinary incontinence
CPT/HCPCS: 81001; 81003; 87086; 87088; 87186

== ENCOUNTER 2025-02-28 11:23 | Outpatient (AMB) | payer OTHER, SELFPAY ==
--- OUTSIDE RECORDS SUMMARY | 2025-02-22 12:15 | XMS_ITS | Encounter Summary ---
Author Organization [facility] Address [address] [place] [address] Care Team Providers Care Shirring Tender Name Role Phone Deonte Carmona Primary Care Provider [phone] Reason for Referral * Home Health (Routine) - Closed Specialty Diagnoses / Procedures Referred By Oswaldo t Referred To Contact Home Health Services Diagnoses Acute cystitis without hematuria Darcy Farah MD [address] [place] [address] Phone: tel: fax: [place] [employer] [address], [address] [place] [address] Phone: tel: Referral ID Status Reason Start Date Expiration Date V isits Requested Visits Authorized [id number] Closed Consult and Treat 02/25/2025 02/25/2026 1 1 Reason for Visit * Reason Comments Weakness - Generalized * Auth/Cert (Routine) Specialty Diagnoses / Procedures Referred By Contshiva t Referred To Contact Diagnoses Sepsis, due to unspecified organism, unspecified whether acute organ dysfunction present (CMS/HCC V24, CMS/HCC V28) Procedures . Pedro Lake MD [address] [place] [address] Phone: tel: fax: [facility] [address] [place] [address] Phone: tel: Referral ID Status Reason Start Date Expiration Date Visits Re quested Visits Authorized [id number] 1 1 Encounter Details Date Type Department Care Team (Latest Contact Info) Description 02/22/2025 12:15 PM EST - 02/25/2025 5:11 PM EST Hospital Encounter [facility] [address] [place] [address] Petey Bhakta MD [address] [facility] [address] [place], [place] [id number] Pedro Lake MD [address] [place] [address] Darcy Farah MD [address] [place] [address] Sepsis, due to unspecified organism, unspecified whether acute organ dysfunction present (CMS/[facility] V24, [facility] V28) (Primary Dx); Acute cystitis without hematuria Discharge Disposition: Home-Health Care Svc Social History Tobacco Use Types Packs/Day Years Used Date Smoking Tobacco: Never Smokeless Tobacco: Never Alcohol Use Standard Drinks/Week Comments Never 0 (1 standard drink = 0.6 oz pur e alcohol) Interpersonal Safety Answer Date Record ed Physical Abuse Unrecognized value 02/22/2025 Verbal Abuse Unrecognized value 02/22/2025 Comments Unknown Sex and Gender Information Value Date Recorded Sex Assigned at Female 05/01/2024 5:14 PM EST Legal Sex Female 5:08 PM EST Gender Identity Female 05/01/2024 5:14 PM EST Sexual Orientation Not on file documented as of this encounter Last Filed Vital Signs Vital Sign Reading Time Taken Comments Blood Pressure 153/88 02/25/2025 4:42 PM EST Pulse 98 02/25/2025 4:42 PM EST Temperature 35.8 C (96.5 F) 02/25/2025 3:24 PM EST Respiratory Rate 16 02/25/2025 3:24 PM EST Oxygen Saturation 96% 02/25/2025 4:32 PM EST Inhaled Oxygen Concentration - - Weight 106 kg (232 lb 12.8 oz) 02/22/2025 5:35 P M EST Height 142.2 cm (4' 8 ) 02/22/2025 5:35 PM EST Body Mass Index 52.19 02/22/2025 5:35 PM EST documented in this encounter Functional Status * Are you [...] 8:49 PM EDT Gypsy Song RN * Calculated C-SSRS Risk Score (Lifetime/Recent) Answer Date of Assessment Author No Risk Indicated 02/22/2025 12:37 PM Mary Perry RN * [place] Suicide Severity Rating Scale (Screener/Recent Self-Report) Question Answer Date of Assessment Author 1. Wish to be (Past 1 Month) No 02/22/2025 12:37 PM Lucía Salas RN 2. Non-Specific Active Suicidal Thoughts (Past 1 Month) No 02/22/2025 12:37 PM Lucía Salas RN 6. Suicidal Behavior (Lifetime) No 02/22/2025 12:37 PM Lucía Salas RN documented as of this encounter Mental Status * Because of a physical, mental, or emotional condition, do you have serious difficulty concentrating, remembering, or making decisions? (5 years old or older) Answer Entry Date Author No 01/09/2025 8:49 PM EDGypsy Lynch RN documented in this encounter Discharge Summaries * Darcy Farah MD - 02/25/2025 2:37 PM EST Images from the original note were not included. [facility]AL[facility] DISCHARGE SUMMARY Patient Information Addis Durant : 1975 [49 y.o.] Admitting Provider Pedro Lake MD Discharge Provider Darcy Farah MD, Darcy Farah MD Primary Care Physician YVES Rowe Admission Date 02/22/2025 Discharge Date 02/25/2025 Primary/Secondary Diagnosis UTI, recurrent Lactic acidosis Mild transaminitis Generalized weakness Morbid obesity Hypothyroidism Dyslipidemia Depression Cerebral palsy Hospital Course Summary 49-year-old female with PMH of cerebral palsy, diabetes insipidus, hypothyroidism, dyslipidemia, depression, insomnia, morbid obesity among others who presented on 02/22/2025 with generalized weakness and abdominal pain. She also reported constipation and dysuria with malodorous urine. On presentation test was negative. Lactic acid 3.8, magnesium 1.8, WBC 8.2, high sensitive troponin 6,6. CT abdomen demonstrated constipation multifocal bilateral renal scarring and nonobstructing calculi and no evidence of ureteral calculi. Chest x-ray demonstrated no acute pulmonary process. RSV, influenza A, B and COVID-19 test was negative. AST also slightly elevated at 62, ALT 93 and alk phos 138. Blood cultures were sent patient was started on IV Zosyn and admitted. - UTI. Pt reported dysuria, malodorous urine. She is afebrile and has no leukocytosis. She had UA with miocroscopic reflex cultures ordered but no urine culture where done. I called micro and they see only UA with microscopy but NO culture order (I see both). Pt was treated with IV Ceftriaxone with resolution of urinary symptoms. Suspect that recurrent UTIs could be from nephrolithiasis acting as a nidus for infection. Recommended to f/u with her urologist for further discussions. D/t recurrent UTIs, also suggesting f/u with urologist or gas scrubber operator for consideration of vaginal estrogen cream. Pt could not tell me but she has bid Keflex and low dose doxycycline scripts for long duration and prophylaxis by outpatient providers. To resume after finishing 7 day course with Cefpodoxime. - Lactic acodosis. Improved with hydration. - Transaminitis. mild and improved. CT abd with no acute findings. Epigastric pain and tenderness noted on exam with improvement. Abd US and normal-appearing gallbladder and biliary tree. no epidence of cholecystitis. - Generalized weakness. PT evaluation done and Home PT was recommended. -Morbid obesity wtih BMI 52 -Diabetes insipidus. On desmopressin 0.2 mg twice a day -Hypothyroidism. On levothyroxine -Dyslipidemia. On statin -Depression and insomnia. On Seroquel, venlafaxine and doxepin -Cerebral palsy - ? Orbital tumor. Noted that patient is on prednisone Demonstrated hepatic steatosis 35 min spent on DC Follow-Up Instructions and Recommendations PCP in 1 week Follow Ups: [facility] [address] [facility], [address] [address] YVES Rowe [address] [facility] [address] Follow up in 1 week(s) [facility] [address] [facility], [facility] [address] [facility] [address] Test Results Pending At Discharge: Pending Labs Order Current Status Urinalysis with reflex microscopic and culture In process Blood Culture, Peripheral #1 Preliminary result Blood Culture, Peripheral #2 Preliminary result Discharge Medications Medication List TAKE these medications atorvastatin 40 mg tablet Commonly known as: LIPITOR Take 1 tablet (40 mg total) by mouth 1 (one) time each day. ulozwlzyon-nwxuijnemzkeq-stiwqloe 50-325-40 mg per tablet Commonly known as: FIORICET, ESGIC Take 1 tablet by mouth every 6 (six) hours if needed. for pain cefpodoxime 200 mg tablet Commonly known as: VANTIN Take 1 tablet (200 mg total) by mouth 2 (two) times a day for 7 days. cephalexin 500 mg capsule Commonly known as: KEFLEX Take 1 capsule (500 mg total) by mouth 1 (one) time each day. cholecalciferol 50 mcg (2,000 unit) capsule Commonly known as: VITAMIN D-3 Take 1 capsule (2,000 Units total) by mouth 1 (one) time each day. desmopressin 0.2 mg tablet Commonly known as: DDAVP Take 1 tablet (0.2 mg total) by mouth 2 (two) times a day. docusate sodium 100 mg capsule Commonly known as: COLACE Take 1 capsule (100 mg total) by mouth 2 (two) times a day. doxepin 75 mg capsule Commonly known as: SINEquan Take 2 capsules (150 mg total) by mouth at bedtime. doxycycline hyclate 20 mg tablet Commonly known as: VIBRA-TABS Take 1 tablet (20 mg total) by mouth every 12 (twelve) hours. famotidine 40 mg tablet Commonly known as: PEPCID Take 1 tablet (40 mg total) by mouth at bedtime. levothyroxine 75 mcg tablet Commonly known as: SYNTHROID, LEVOTHROID Take 1 tablet (75 mcg total) by mouth 1 (one) time each day before breakfast. Myrbetriq 25 mg 24 hr tablet Generic drug: mirabegron Take 1 tablet (25 mg total) by mouth 1 (one) time each day. naloxone 4 mg/0.1 mL nasal spray Commonly known as: NARCAN Administer 1 each (4 mg total) into affected nostril(s) if needed for opioid reversal. Give 4 mg (1spray) into one nostril. May repeat every 2-3 minutes if needed, alternating nostrils, until medical assistance becomes available. omeprazole [address] capsule Commonly known as: PriLOSEC Take 1 capsule (40 mg total) by mouth 1 (one) time each day. predniSONE 20 mg tablet Commonly known as: DELTASONE Take 2 tablets (40 mg total) by mouth 1 (one) time each day. pregabalin 200 mg capsule Commonly known as: LYRICA Take 1 capsule (200 mg total) by mouth at bedtime. * QUEtiapine 200 mg tablet Commonly known as: SEROquel Take 1 tablet (200 mg total) by mouth at bedtime. * QUEtiapine 50 mg tablet Commonly known as: SEROquel Take 1 tablet (50 mg total) by mouth 1 (one) time each day. temazepam 15 mg capsule Commonly known as: RESTORIL Take 1 capsule (15 mg total) by mouth 1 (one) time each day. tiZANidine 4 mg tablet Commonly known as: ZANAFLEX Take 1 tablet (4 mg total) by mouth 2 (two) times a day if needed for muscle spasms. tobramycin-dexAMETHasone ophthalmic suspension Commonly known as: TOBRADEX Administer 1 drop into both eyes every 4 (four) hours while awake. traMADoL 50 mg tablet Commonly known as: ULTRAM Take 1 tablet (50 mg total) by mouth 2 (two) times a day if needed (breakthrough pain). valACYclovir 1 gram tablet Commonly known as: VALTREX Take 1 tablet (1,000 mg total) by mouth 1 (one) time each day. venlafaxine XR 150 mg 24 hr capsule Commonly known as: EFFEXOR-XR Take 1 capsule (150 mg total) by mouth at bedtime. * This list has 2 medication(s) that are the same as other medications prescribed for you. Read thedirections carefully, and ask your doctor or other care provider to review them with you. Physical Exam at time of Discharge General: awake and alert. Looks comfortable this morning. No more dysuria as per pt. Wants to go home Psych: mood stable and smiling today. Ext: chronic leg swelling/obseity. PUL: No wheezes. GI: BS present. Mild epigastric tenderness . No guarding. Skin: no cyanosis Vitals Vitals: 02/25/25 0726 BP: 136/84 Pulse: 90 Resp: 18 Temp: 36.3 ??C (97.3 ??F) SpO2: 97% HEMATOLOGY Lab Results Component Value Date WBC 8.3 02/24/2025 HGB 12.2 02/24/2025 HCT 34.9 (L) 02/24/2025 MCV 97.8 02/24/2025 PLT 205 02/24/2025 INR 0.8 02/22/2025 CHEMISTRY Lab Results Component Value Date GLUCOSE 78 02/24/2025 NA 130 (L) 02/24/2025 K 3.9 02/24/2025 CO2 25 02/24/2025 CL 94 (L) 02/24/2025 BUN 17 02/24/2025 CREATININE 0.69 02/24/2025 EGFR 105 02/24/2025 CALCIUM 8.7 02/24/2025 MG 1.8 (L) 02/22/2025 PHOS 2.2 (L) 05/03/2024 ANIONGAP 11 02/24/2025 US Abdomen Limited Result Date: 02/23/2025 PROCEDURE: Right upper quadrant ultrasound. HISTORY: elevated lft. COMPARISON: CT 02/22/2025. TECHNIQUE: Grayscale, color Doppler, and spectral Doppler ultrasound evaluation of the right upper quadrant of the abdomen. FINDINGS: LIVER: Mildly echogenic parenchyma, consistent with mild steatosis, with a small area of sparing along the gallbladder fossa. No focal lesion. Normal flow in the main portal vein. BILIARY: Normal gallbladder. Negative sonographic Rabago sign. Normal caliber biliary tree with no ductal filling defect. PANCREAS: Not well visualized. RIGHT KIDNEY: Normal size and echotexture. No hydronephrosis or focal lesion. Mild hepatic steatosis. Normal appearance of the gallbladder and biliary tree. -------- FINAL REPORT -------- Dictated By: Stefan Ambriz Dictated Date: 02/23/2025 09:52 ET Assigned Physician: Stefan Ambriz Reviewed and Electronically Signed By: Stefan Ambriz Signed Date: 02/23/2025 09:56 ET Wo rkstation ID: [id number] Transcribed By: Self Edit Transcribed Date: 02/23/2025 09:[address] Abdomen Pelvis w Contrast Result Date: 02/22/2025 PROCEDURE: Contrast enhanced CT of the abdomen and pelvis. HISTORY: abd pain. COMPARISON: 05/03/2024. TECHNIQUE: Contrast-enhanced CT of the abdomen and pelvis with coronal and sagittal reformats. IVcontrast dose: 90 mL [id number]. Dose length product: 1287 mGy-cm. FINDINGS: Lung bases: Normal. Cardiac: Normal heart size. Mild coronary artery calcification. Liver: Slightly low in attenuation suggestive of mild steatosis. No focal lesion. Portal veins are patent. Biliary: Normal gallbladder andbiliary tree. Pancreas: Normal. Spleen: Normal. Adrenal glands: Normal. Kidneys: Multifocal cortical thinning consistent with scarring. Bilateral nonobstructing renal calculi. The largest calculi area 6 mm lower pole calculus on the left and a 4 mm lower pole calculus on the right. Normal appearance of the ureters. Retroperitoneum: No mass or adenopathy. Abdominal vasculature: Minimal atherosclerotic calcifications. Bowel/mesentery: Redundant sigmoid. Moderate proximal colonic fecal loading. No obstruction or adenopathy. No mass or ascites. Abdominal wall: There is a generator device in the right gluteal subcutaneous fat with a lead projecting into the right S3-4 neural foramen. Pelvic nodes: No adenopathy. Pelvic organs: Well-positioned intrauterine device. Bones: Demineralized. Degenerative changes of the hips, left greater than right. Multilevel degenerative changes of the spine. The T10- 11 endplates and facet joints are fused. 1. Moderate proximal colonic fecal loading suggesting constipation. 2. Multifocal bilateral renal cortical scarring and multiple bilateral nonobstructing renal calculi. No ureteral calculus. --------FINAL REPORT -------- Dictated By: Stefan Ambriz Dictated Date: 02/22/2025 15:54 ET Assigned Physician: Stefan Ambriz Reviewed and Electronically Signed By: Stefan Ambriz Signed Date: 02/22/2025 16:01 ET Workstation ID: [id number] Transcribed By: Self Edit Transcribed Date: 02/22/2025 15:54 ET XR Chest 1 View Result Date: 02/22/2025 PROCEDURE: AP chest radiograph. HISTORY: weakness. COMPARISON: 05/01/2024. FINDINGS: Mild degenerative changes of the spine. Lungs, pleural spaces, pulmonary vasculature, and cardiomediastinal contoursare normal. No acute findings. -------- FINAL REPORT -------- Dictated By: Stefan Ambriz Dictated Date: 02/22/2025 12:53 ET Assigned Physician: Stefan Ambriz Reviewed and Electronically Signed By: Stefan Ambriz Signed Date: 02/22/2025 12:56 ET Workstation ID: [id number] Transcribed By: Self Edit Transcribed Date: 02/22/2025 12:53 ET documented in this encounter Discharge Instructions * Discharge Instructions* Darcy Farah MD - 02/25/2025 2:31 PM EST Diagnosis: UTI Your Urinary symptoms improved with antibiotic therapy. Complete antibiotic course with 7 days of Cefpodoxime (script was sent to your pharmacy). After you complete Cefpodoxime, then you can resume prior prophylactic antibiotics (Keflex/Doxycycline) as you were instructed by outpatient providers. Recommend to follow up with your urologist for further discussions. You have kidney stones which are not causing any obstruction problems presently but if you have bacteria/infection hiding in one ofthese stones, this may be causing recurrence of UTI (despite multiple abx treatments and improvements). Hard to proof but possible. If this is the reason, then UTI will likely keep recurring and treatment will be to remove kidney stones at some point. Other option to discuss with your urologist and or gas scrubber operator, would be to check if you may benefit from vaginal estrogen cream (in order to reduce recurrence of UTIs). documented in this encounter Medications at Time of Discharge atorvastatin (LIPITOR) 40 mg tablet Take 1 tablet (40 mg total) by mouth 1 (one) time each day. cephalexin (KEFLEX) 500 mg capsule Take 1 capsule (500 mg total) by mouth 1 (one) time each day. cholecalciferol (VITAMIN D-3) 50 mcg (2,000 unit) capsule Take 1 capsule (2,000 Units total) by mouth 1 (one) time each day. desmopressin (DDAVP) 0.2 mg tablet Take 1 tablet (0.2 mg total) by mouth 2 (two) times a day. docusate sodium (COLACE) 100 mg capsule Take 1 capsule (100 mg total) by mouth 2 (two) times a day. famotidine (PEPCID) 40 mg tablet Take 1 tablet (40 mg total) by mouth at bedtime. levothyroxine (SYNTHROID, LEVOTHROID) 75 mcg tablet Take 1 tablet (75 mcg total) by mouth 1 (one) time each day before breakfast. Myrbetriq 25 mg 24 hr tablet Take 1 tablet (25 mg total) by mouth 1 (one) time each day. omeprazole (PriLOSEC) [address] capsule Take 1 capsule (40 mg total) by mouth 1 (one) time each day. QUEtiapine (SEROquel) 200 mg tablet Take 1 tablet (200 mg total) by mouth at bedtime. QUEtiapine (SEROquel) 50 mg tablet Take 1 tablet (50 mg total) by mouth 1 (one) time each day. 09/25/2018 temazepam (RESTORIL) 15 mg capsule Take 1 capsule (15 mg total) by mouth 1 (one) time each day. tiZANidine (ZANAFLEX) 4 mg tablet Take 1 tablet (4 mg total) by mouth 2 (two) times a day if needed for muscle spasms. 04/17/2024 tobramycin-dexAM ETHasone (TOBRADEX) ophthalmic suspension Administer 1 drop into both eyes every 4 (four) hours while awake. 01/13/2025 traMADoL (ULTRAM) 50 mg tablet Take 1 tablet (50 mg total) by mouth 2 (two) times a day if needed (breakthrough pain). 10/27/2015 valACYclovir (VALTREX) 1 gram tablet Take 1 tablet (1,000 mg total) by mouth 1 (one) time each day. 02/24/2024 venlafaxine XR (EFFEXOR-XR) 150 mg 24 hr capsule Take 1 capsule (150 mg total) by mouth at bedtime. 07/28/2015 butalbital-aceta minophen-caffein e (FIORICET, ESGIC) 50-325-40 mg per tablet Take 1 tablet by mouth every 6 (six) hours if needed. for pain cefpodoxime (VANTIN) 200 mg tablet Take 1 tablet (200 mg total) by mouth 2 (two) times a day for 7 days. 14 each 02/25/2025 5 doxepin (SINEquan) 75 mg capsule Take 2 capsules (150 mg total) by mouth at bedtime. 10/10/2015 doxycycline hyclate (VIBRA-TABS) 20 mg tablet Take 1 tablet (20 mg total) by mouth every 12 (twelve) hours. 02/09/2025 5 naloxone (NARCAN) 4 mg/0.1 mL nasal spray Administer 1 each (4 mg total) into affected nostril(s) if needed for opioid reversal. Give 4 mg (1 spray) into one nostril. May repeat every 2-3 minutes if needed, alternating nostrils, until medical assistance becomes available. 2 each 01/09/2025 6 predniSONE (DELTASONE) 20 mg tablet Take 2 tablets (40 mg total) by mouth 1 (one) time each day. 02/01/2025 pregabalin (LYRICA) 200 mg capsule Take 1 capsule (200 mg total) by mouth at bedtime. documented as of this encounter Ordered Prescriptions Prescription Sig Dispense Quantity Refills Last Filled Start Date End Date cefpodoxime (VANTIN) 200 mg tablet Take 1 tablet (200 mg total) by mouth 2 (two) times a day for 7 days. 14 each 02/25/2025 03/04/2025 documented in this encounter Discharge Disposition Disposition Code Departure Means Destination Comment s Home-Health Care [facility] documented in this encounter Progress Notes * Darlene Stein RN - 02/25/2025 5:07 PM EST Patient states understanding to discharge instructions. IV line removed. Patient to follow up with PCP, Urologist, and OBGYN. Patient to take full course of antibiotics. All questions answered. Joseph driving patient home. * Christina Dorado RN - 02/25/2025 3:10 PM EST 02/25/25 1510 Transportation Transportation at discharge [facility] providing transportation Joseph What day is the transport expected? 02/25/25 What time is the transport expected? 1730 Final Discharge Disposition Home Health Care Services Pt d/c home via [facility]. Pt confirmed she has keys to enter her home. [facility] spoke with [facility] and confirmed acceptance. D/C summary and ambulatory referral for home health sent via fax in [facility], notified of d/c today. * Jade Wills, PT - 02/25/2025 11:[address] 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 Sepsis, due to unspecified organism, unspecified whether acute organ dysfunction present ([facility] V24, [facility] V28) A41.9 038.9 995.91 Medical History[1] Surgical History[2] PT Received On: 02/25/2025 SUBJECTIVE My METAL RIVET MACHINE OPERATOR helps me transfer and walk sometimes I just use my wheelchair in my apt PT Time Calculation: PT Time Calculation PT Start Time: 1110 PT Stop Time: 1140 PT Time Calculation (min): 30 min OBJECTIVE Precautions: Precautions Medical Precautions: Fall Risk Safety Interventions: Call turong within reach, Side rails up x2, Bed alarm Cognition: Cognition Overall Cognitive Status: Within Functional Limits Arousal/Alertness: Appropriate responses to stimuli Orientation Level: Oriented X4 Following Commands: Follows all commands and directions without difficulty Safety Judgment: Good awareness of safety precautions Vital Signs: Oxygen Therapy Oxygen Therapy: None (Room air) Pain Assessment: Pain Assessment: No/denies pain Pain Score: 0 - No pain Home Living: Home Living Lives With: Alone (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 she ambulates at times. SHe mostly uses W/C at home) Functional Assessments: Static Sitting Balance Static Sitting-Level of Assistance: Close supervision Static Sitting-Comment/Number of Minutes: fair + to good sitting @ EOB Static Standing Balance Static Standing-Level of Assistance: Minimum assistance Static Standing-Comment/Number of Minutes: fair stand with RW Bed Mobility Rolling Left and Right Assistance: Moderate assistance Sitting to Lying Assistance: Dependent Lying to Sitting Assistance: Maximum assistance Bed Mobility Comments: bed was too high for her therefore assist of 2 to return her to bed. Also, assist of 2 to reposition her in bed Transfers Sit to Stand Assistance: Moderate assistance Sit to Stand Deficit: Assist for lift off, Steadying, Verbal cueing Transfer Comments: pt stood with RW and had difficulty scooting back into bed due to bed height could not be lowered anymore Ambulation Comments: unable to assess, not safe at this time Extremity Assessments: Education: Education Documentation Mobility Training, taught by Jade Wills, PT at 02/25/2025 11:10 AM. Learner: Patient Readiness: Acceptance Method: Explanation Response: Verbalizes Understanding Comment: safe sit to stand, home PT Education Comments No comments found. ASSESSMENT Pt refused rehab and wanted to return home. Her METAL RIVET MACHINE OPERATOR helps her with transfers and short distance gait. Recommend home PT for HEP, transfers/ mobility. Pt would like ambulance transport to home. PT Assessment: PT Assessment PT Assessment Results: Decreased strength, Decreased endurance, Impaired balance, Impaired gait, Decreased mobility Prognosis: Good Evaluation/Treatment Tolerance: Patient tolerated treatment well Medical Staff Made Aware: Yes PLAN PT Plan: During acute care stay: PT Plan: Skilled PT PT Frequency: 2-5 days per week PT Treatments per day: PRN PT Discharge Recommendations: Home PT Equipment Recommendations: W/C and RW Goals: Goals: Encounter Problems Encounter Problems (Active) Template: Physical Therapy Problem: PT Short Term Goals Dates: Start: 02/25/25 Goal: PT STG 1 Patient will transfer sit<>stand safely min assist Dates: Start: 02/25/25 Expected End: 03/11/25 Encounter Problems (Resolved) There are no resolved problems. PT Evaluation Time Entry G RHB Yajaira PT Evaluation Time Entry PT Evaluation (Moderate) Time Entry: 30 [1] Past Medical History: Diagnosis Date Anxiety Cerebral palsy ([facility] V24, [facility] V28) Chronic anemia Depression Diabetes insipidus ([facility] V24) Diabetes mellitus ([facility] V24, [facility] V28) GERD (gastroesophageal reflux disease) Hyperlipidemia Hypertension Hypothyroidism Insomnia Migraines [2] Past Surgical History: Procedure Laterality Date APPENDECTOMY OTHER SURGICAL HISTORY Transsphenoidal hypophysectomy OTHER SURGICAL HISTORY Multiple surgeries at [facility] related to cerebral palsy * Jannet Tompkins RN - 02/25/2025 11:06 AM EST Goals: Identify possible barriers to meeting goals/advancing plan of care: Stability of the patient: Moderately Stable - Low risk of patient condition declining or worsening End of Shift Summary: Patient AXO X4. Turned and reposotioned Q 2hrs and prn . Denies c/o pain at this time. Voiding large amounts on bedpan, clear yellow urine. Pupp boots on bilaterally. Call truong with in reach, will continue to monitor. * Darcy Farah MD - 02/24/2025 2:21 PM EST Images from the original note were not included. [place] PROGRESS NOTE Date: 02/24/2025 Author: Darcy Farah MD Patient ID: Addis Durant is a 49 y.o. female : 1975 MR#: [id number] SUBJECTIVE CC: back pain Pt asleep. When woke up reports back pain. Difficult to elaborate on chronicity but appears chronicand exacerbated now. Has not been up and remains in bed. Noted that she got oxycodone last night and pt is asking for the same. Reports that sometimes she takes oxycodone at home for pain issues. D/w ICC and no PT services are available today. ROS: Vague abd pain No fever No sob OBJECTIVE Vitals: Vitals: 02/24/25 1419 BP: 128/85 Pulse: 99 Resp: 19 Temp: 36.3 ??C (97.4 ??F) SpO2: 99% Physical Exam: General: Asleep but woke up easily. Reports pain in her back and being uncomfortable. Psych: mood sad, affect flat. Anxious. EYEs: no icterus. CVS: S1 S2 Ext: chronic leg swelling/obseity. PUL: No wheezes. GI: BS present. +epigastric tenderness remains. No guarding. Skin: no cyanosis Limited exam as pt unable to roll LAB RESULTS HEMATOLOGY Lab Results Component Value Date WBC 8.3 02/24/2025 HGB 12.2 02/24/2025 HCT 34.9 (L) 02/24/2025 MCV 97.8 02/24/2025 PLT 205 02/24/2025 CHEMISTRY Lab Results Component Value Date GLUCOSE 78 02/24/2025 NA 130 (L) 02/24/2025 K 3.9 02/24/2025 CO2 25 02/24/2025 CL 94 (L) 02/24/2025 BUN 17 02/24/2025 CREATININE 0.69 02/24/2025 EGFR 105 02/24/2025 CALCIUM 8.7 02/24/2025 MG 1.8 (L) 02/22/2025 PHOS 2.2 (L) 05/03/2024 ANIONGAP 11 02/24/2025 RADIOLOGY US Abdomen Limited Final Result Mild hepatic steatosis. Normal appearance of the gallbladder and biliary tree. -------- FINAL REPORT -------- Dictated By: Stefan Ambriz Dictated Date: 02/23/2025 09:52 ET Assigned Physician: Stefan Ambriz Reviewed and Electronically Signed By: Stefan Ambriz Signed Date: 02/23/2025 09:56 ET Workstation ID: [id number] Transcribed By: Self Edit Transcribed Date: 02/23/2025 09:[address] Abdomen Pelvis w Contrast Final Result 1. Moderate proximal colonic fecal loading suggesting constipation. 2. Multifocal bilateral renal cortical scarring and multiple bilateral nonobstructing renal calculi. No ureteral calculus. -------- FINAL REPORT -------- Dictated By: Stefan Ambriz Dictated Date: 02/22/2025 15:54 ET Assigned Physician: Stefan Ambriz Reviewed and Electronically Signed By: Stefan Ambriz Signed Date: 02/22/2025 16:01 ET Workstation ID: [id number] Transcribed By: Self Edit Transcribed Date: 02/22/2025 15:54 ET XR Chest 1 View Final Result No acute findings. -------- FINAL REPORT -------- Dictated By: Stefan Ambriz Dictated Date: 02/22/2025 12:53 ET Assigned Physician: Stefan Ambriz Reviewed and Electronically Signed By: Stefan Ambriz Signed Date: 02/22/2025 12:56 ET Workstation ID: [id number] Transcribed By: Self Edit Transcribed Date: 02/22/2025 12:53 ET Imaging: US Abdomen Limited Narrative: PROCEDURE: Right upper quadrant ultrasound. HISTORY: elevated lft. COMPARISON: CT 02/22/2025. TECHNIQUE: Grayscale, color Doppler, and spectral Doppler ultrasound evaluation of the right upper quadrant of the abdomen. FINDINGS: LIVER: Mildly echogenic parenchyma, consistent with mild steatosis, with a small area of sparing along the gallbladder fossa. No focal lesion. Normal flow in the main portal vein. BILIARY: Normal gallbladder. Negative sonographic Rabago sign. Normal caliber biliary tree with no ductal filling defect. PANCREAS: Not well visualized. RIGHT KIDNEY: Normal size and echotexture. No hydronephrosis or focal lesion. Impression: Mild hepatic steatosis. Normal appearance of the gallbladder and biliary tree. -------- FINAL REPORT -------- Dictated By: Stefan Ambriz Dictated Date: 02/23/2025 09:52 ET Assigned Physician: Stefan Ambriz Reviewed and Electronically Signed By: Stefan Ambriz Signed Date: 02/23/2025 09:56 ET Workstation ID: [id number] Transcribed By: Self Edit Transcribed Date: 02/23/2025 09:52 ET ASSESSMENT & PLAN 49-year-old female with PMH of cerebral palsy, diabetes insipidus, hypothyroidism, dyslipidemia, depression, insomnia, morbid obesity among others who presented on 02/22/2025 with generalized weakness and abdominal pain. She also reported constipation and dysuria with malodorous urine. On presentation test was negative. Lactic acid 3.8, magnesium 1.8, WBC 8.2, high sensitive troponin 6,6. CT abdomen demonstrated constipation multifocal bilateral renal scarring and nonobstructing calculi and no evidence of ureteral calculi. Chest x-ray demonstrated no acute pulmonary process. RSV, influenza A, B and COVID-19 test was negative. AST also slightly elevated at 62, ALT 93 and alk phos 138. Blood cultures were sent patient was started on IV Zosyn and admitted. - UTI. Pt reported dysuria, malodorous urine. She is afebrile and has no leukocytosis. She had UA with miocroscopic reflex cultures ordered but no urine culture where done. I called micro and they see only UA with microscopy but NO culture order (I see both). Pt is zosyn. Prior cultures with Klebsiella Pneumonia noted, on 09/09 and 01/22. Pt reports recurrent UTIs. Plan: Continue Ceftriaxone Suspect that recurrent UTIs could be from nephrolithiasis acting as a nidus for infection. Recommended to f/u with her urologist for further discussions. - Lactic acodosis. Improved with hydration. - Transaminitis. mild and improved. CT abd with no acute findings. Epigastric pain and tenderness noted on exam. Abd US and normal-appearing gallbladder and biliary tree. Abdominal pain is located in the epigastric area and could be gastritis. Already on PPI/H2 maru. - Generalized weakness. PT evaluation pending Reports increase in chronic back pain and asking for oxycodone. Pain likely worse from being in bed and not moving. Peter reviewed: Last oxycodone prescription was on 01/17/2025, 12 pills and prior to that 01/12/2025 also 12 pills. Prior to that she had several fills for tramadol with last fill on On 01/06/2025 (14 tablets). Pt remains on Lyrica 200 mg HS. -Morbid obesity wtih BMI 52 -Diabetes insipidus. On desmopressin 0.2 mg twice a day -Hypothyroidism. On levothyroxine -Dyslipidemia. On statin -Depression and insomnia. On Seroquel, venlafaxine and doxepin -Cerebral palsy - ? Orbital tumor. Noted that patient is on prednisone Demonstrated hepatic steatosis DVT prophylaxis: Heparin CODE STATUS: Full code Disposition: Barrier: Needs PT evaluation. * Hair Black RN - 02/24/2025 1:10 PM EST Goals: Identify possible barriers to meeting goals/advancing plan of care: iv abx Stability of the patient: Moderately Stable - Low risk of patient condition declining or worsening End of Shift Summary: Problem: Physical Regulation:Infection Management Goal: Signs and symptoms of infection will decrease Outcome: Progressing Goal: Complications related to the disease process, condition or treatment will be avoided or minimized Outcome: Progressing Goal: Diagnostic test results will improve Outcome: Progressing Problem: Cognitive:Infection Management Goal: Knowledge of disease or condition will improve Outcome: Progressing Problem: Patient Specific Problem:Infection Management Goal: Patient Specific Outcome Outcome: Progressing Problem: Sensory: Acute Pain Goal: Pain level will improve or be tolerable Outcome: Progressing Goal: Ability to develop a pain control plan will improve Outcome: Progressing Problem: Cognitive: Acute Pain Goal: Expressions of feelings of enhanced comfort will increase Outcome: Progressing Problem: Patient Specific Problem: Acute Pain Goal: Patient Specific Outcome Outcome: Progressing Problem: Falls: Fall Risk (Adult IP BH) Goal: (Goal) Patient will experience maximum safety and reduce risk for falls. Outcome: Progressing Goal: Patient will not fall or injure themselves during hospitalization. Outcome: Progressing * Darcy Farah MD - 02/23/2025 2:21 PM EST Images from the original note were not included. [place] PROGRESS NOTE Date: 02/23/2025 Author: Darcy Farah MD Patient ID: Addis Durant is a 49 y.o. female : 1975 MR#: [id number] SUBJECTIVE CC: abd pain, gen weakness Seen fist time this morning. Not a great historian. Some symptoms are chronic. Appears that worsening weakness is new. Also reports abd pain and localizes to epigastric area. She admits dysuria, odor with urine recently and previously but not clear when last symptoms started. ROS: No sob No fever No chest pain No vomiting. OBJECTIVE Vitals: Vitals: 02/23/25 0758 BP: 117/80 Pulse: 88 Resp: 15 Temp: 36.7 ??C (98.1 ??F) SpO2: 99% Physical Exam: General: Awake and alert. NAD. Obese. Psych: mood nl. EYEs: no icterus. CVS: S1 S2 Ext: chronic leg swelling/obseity. PUL: CTA BL GI: BS present. +epigastric tenderness. No guarding. Skin: no cyanosis LAB RESULTS HEMATOLOGY Lab Results Component Value Date WBC 9.4 02/23/2025 HGB 11.8 02/23/2025 HCT 35.6 02/23/2025 MCV 102.0 (H) 02/23/2025 PLT 220 02/23/2025 CHEMISTRY Lab Results Component Value Date GLUCOSE 76 02/23/2025 NA 138 02/23/2025 K 4.1 02/23/2025 CO2 26 02/23/2025 CL 100 02/23/2025 BUN 19 02/23/2025 CREATININE 0.77 02/23/2025 EGFR 94 02/23/2025 CALCIUM 8.8 02/23/2025 MG 1.8 (L) 02/22/2025 PHOS 2.2 (L) 05/03/2024 ANIONGAP 12 (H) 02/23/2025 RADIOLOGY US Abdomen Limited Final Result Mild hepatic steatosis. Normal appearance of the gallbladder and biliary tree. -------- FINAL REPORT -------- Dictated By: Stefan Ambriz Dictated Date: 02/23/2025 09:52 ET Assigned Physician: Stefan Ambriz Reviewed and Electronically Signed By: Stefan Ambriz Signed Date: 02/23/2025 09:56 ET Workstation ID: [id number] Transcribed By: Self Edit Transcribed Date: 02/23/2025 09:[address] Abdomen Pelvis w Contrast Final Result 1. Moderate proximal colonic fecal loading suggesting constipation. 2. Multifocal bilateral renal cortical scarring and multiple bilateral nonobstructing renal calculi. No ureteral calculus. -------- FINAL REPORT -------- Dictated By: Stefan Ambriz Dictated Date: 02/22/2025 15:54 ET Assigned Physician: Stefan Ambriz Reviewed and Electronically Signed By: Stefan Ambriz Signed Date: 02/22/2025 16:01 ET Workstation ID: [id number] Transcribed By: Self Edit Transcribed Date: 02/22/2025 15:54 ET XR Chest 1 View Final Result No acute findings. -------- FINAL REPORT -------- Dictated By: Stefan Ambriz Dictated Date: 02/22/2025 12:53 ET Assigned Physician: Stefan Ambriz Reviewed and Electronically Signed By: Stefan Ambriz Signed Date: 02/22/2025 12:56 ET Workstation ID: [id number] Transcribed By: Self Edit Transcribed Date: 02/22/2025 12:53 ET Imaging: US Abdomen Limited Narrative: PROCEDURE: Right upper quadrant ultrasound. HISTORY: elevated lft. COMPARISON: CT 02/22/2025. TECHNIQUE: Grayscale, color Doppler, and spectral Doppler ultrasound evaluation of the right upper quadrant of the abdomen. FINDINGS: LIVER: Mildly echogenic parenchyma, consistent with mild steatosis, with a small area of sparing along the gallbladder fossa. No focal lesion. Normal flow in the main portal vein. BILIARY: Normal gallbladder. Negative sonographic Rabago sign. Normal caliber biliary tree with no ductal filling defect. PANCREAS: Not well visualized. RIGHT KIDNEY: Normal size and echotexture. No hydronephrosis or focal lesion. Impression: Mild hepatic steatosis. Normal appearance of the gallbladder and biliary tree. -------- FINAL REPORT -------- Dictated By: Stefan Ambriz Dictated Date: 02/23/2025 09:52 ET Assigned Physician: Stefan Ambriz Reviewed and Electronically Signed By: Stefan Ambriz Signed Date: 02/23/2025 09:56 ET Workstation ID: [id number] Transcribed By: Self Edit Transcribed Date: 02/23/2025 09:52 ET ASSESSMENT & PLAN 49-year-old female with PMH of cerebral palsy, diabetes insipidus, hypothyroidism, dyslipidemia, depression, insomnia, morbid obesity among others who presented on 02/22/2025 with generalized weakness and abdominal pain. She also reported constipation and dysuria with malodorous urine. On presentation test was negative. Lactic acid 3.8, magnesium 1.8, WBC 8.2, high sensitive troponin 6,6. CT abdomen demonstrated constipation multifocal bilateral renal scarring and nonobstructing calculi and no evidence of ureteral calculi. Chest x-ray demonstrated no acute pulmonary process. RSV, influenza A, B and COVID-19 test was negative. AST also slightly elevated at 62, ALT 93 and alk phos 138. Blood cultures were sent patient was started on IV Zosyn and admitted. - UTI. Pt reported dysuria, malodorous urine. She is afebrile and has no leukocytosis. She had UA with miocroscopic reflex cultures ordered but no urine culture where done. I called micro and they see only UA with microscopy but NO culture order (I see both). Pt is zosyn. Prior cultures with Klebsiella Pneumonia noted, on 09/09 and 01/22. Pt reports recurrent UTIs. Plan: Switch to Ceftrixone and monitor for symptoms general labs and vitals. No point of adding urine cultures now/after abx given Suspect that recurrent UTIs could be from nephrolithiasis acting as a nidus for infection. Recommended to f/u with her urologist for further discussions. - Lactic acodosis. Improved with hydration. - Transaminitis. mild and improved. CT abd with no acute findings. Epigastric pain and tenderness noted on exam. Abd US and normal-appearing gallbladder and biliary tree. Abdominal pain is located in the epigastric area and could be gastritis. Already on PPI/H2 maru. - Generalized weakness. Get PT evaluation. -Morbid obesity wtih BMI 52 -Diabetes insipidus. On desmopressin 0.2 mg twice a day -Hypothyroidism. On levothyroxine -Dyslipidemia. On statin -Depression and insomnia. On Seroquel, venlafaxine and doxepin -Cerebral palsy - ? Orbital tumor. Noted that patient is on prednisone Demonstrated hepatic steatosis DVT prophylaxis: Heparin CODE STATUS: Full code Disposition: Likely DC tomorrow. Total time spent: >56 min. Reviewing old urine cultures/sensitivities, CT/US reports, labs, calling micro department to find out about cultures, evaluating, counseling pt, ordering tests, treatments, documenting findings among others. * Jannet Tompkins RN - 02/23/2025 11:27 AM EST Goals: Identify possible barriers to meeting goals/advancing plan of care: Stability of the patient: Moderately Stable - Low risk of patient condition declining or worsening End of Shift Summary: Patient alert and oriented. Had U/S of abdomen done this morning. VSS. Turnedand repositioned in bed throughout shift. Denies c/o pain. Bed alarm on. Call truong within reach. * Leanna Thayer RN - 02/23/2025 9:23 AM EST 02/23/25 0922 Initial Transition Plan Initial Transition Plan Home Discharge Planning Living Arrangements Alone Type of Residence Private residence Assistive Devices Walker Support Systems Immediate family Medication Coverage Has Med Coverage Under Insurance Plan Yes Medication Affordability No concerns related to payment for meds Anticipated Discharge Needs Discipline following for SNF placement Perinatal Social Worker Informed Choice Informed Choice Given? Yes ICC met with patient at bedside. Patient lives alone and uses a walker with ambulation. She does not drive, she has a METAL RIVET MACHINE OPERATOR 59.5 hours per week and they bring her to appointments and assist with shopping. She is not a and uses [facility] [address] in [place] for her pharmacy. Upon dischargeshe will need an ambulance ride home to the address on file. * Leanna Thayer RN - 02/23/2025 9:22 AM EST 02/23/25921 Initial Transition Plan Initial Transition Plan Home Discharge Planning Living Arrangements Alone Type of Residence Private residence Assistive Devices Walker Support Systems Immediate family Medication Coverage Has Med Coverage Under Insurance Plan Yes Medication Affordability No concerns related to payment for meds Anticipated Discharge Needs Discipline following for SNF placement Perinatal Social Worker Informed Choice Informed Choice Given? Yes * Danyelle Lindsey RN - 02/22/2025 5:03 PM EST Per ultrasound, pt needs to be npo for about 8 hours before abdominal ultrasound can be done. [place] made aware. Pt just ate about 10min prior to this * Celena Posadas - 02/22/2025 4:39 PM EST Images from the original note were not included. Medication History Business And Financial Counsel Medication history has been obtained for Addis Durant (1975) by a Medication Historian and the home med list has been updated. History obtained from conversation with: Patient Additional Source(s) of History: Dispense history (no discrepancy between med list and fill history) []Updated Patient Preferred Pharmacy The Patient's Home Medications include: HOME MEDICATIONS INSTRUCTIONS NOTES atorvastatin (LIPITOR) 40 mg tablet Take 1 tablet (40 mg total) by mouth 1 (one) time each day. EDIT DOSE + FREQUENCY cephalexin (KEFLEX) 500 mg capsule Take 1 capsule (500 mg total) by mouth 1 (one) time each day. ADDITION cholecalciferol (VITAMIN D-3) 50 mcg (2,000 unit) capsule Take 1 capsule (2,000 Units total) by mouth 1 (one) time each day. desmopressin (DDAVP) 0.2 mg tablet Take 1 tablet (0.2 mg total) by mouth 2 (two) times a day. Note written 02/22/2025 1622: PRESCRIBER INCREASED FROM 0.1MG TWICE DAILY docusate sodium (COLACE) 100 mg capsule Take 1 capsule (100 mg total) by mouth 2 (two) times a day.ADDITION famotidine (PEPCID) 40 mg tablet Take 1 tablet (40 mg total) by mouth at bedtime. levothyroxine (SYNTHROID, LEVOTHROID) 75 mcg tablet Take 1 tablet (75 mcg total) by mouth 1 (one) time each day before breakfast. ADDITION Myrbetriq 25 mg 24 hr tablet Take 1 tablet (25 mg total) by mouth 1 (one) time each day. omeprazole (PriLOSEC) [address] capsule Take 1 capsule (40 mg total) by mouth 1 (one) time each day.EDIT DOSE + FREQUENCY QUEtiapine (SEROquel) 200 mg tablet Take 1 tablet (200 mg total) by mouth at bedtime. EDIT DOSE + FREQUENCY QUEtiapine (SEROquel) 50 mg tablet Take 1 tablet (50 mg total) by mouth 1 (one) time each day. EDITDOSE + FREQUENCY temazepam (RESTORIL) 15 mg capsule Take 1 capsule (15 mg total) by mouth 1 (one) time each day. ADDITION tiZANidine (ZANAFLEX) 4 mg tablet Take 1 tablet (4 mg total) by mouth 2 (two) times a day if neededfor muscle spasms. tobramycin-dexAMETHasone (TOBRADEX) ophthalmic suspension Administer 1 drop into both eyes every 4 (four) hours while awake. ADDITION traMADoL (ULTRAM) 50 mg tablet Take 1 tablet (50 mg total) by mouth 2 (two) times a day if needed (breakthrough pain). valACYclovir (VALTREX) 1 gram tablet Take 1 tablet (1,000 mg total) by mouth 1 (one) time each day.Note written 02/22/2025 1627: PRESCRIBER INCREASED DOSE FROM 500MG DAILY venlafaxine XR (EFFEXOR-XR) 150 mg 24 hr capsule Take 1 capsule (150 mg total) by mouth at bedtime.Note written 02/22/2025 1638: PATIENT REPORTS A CHANGE FROM DAILY DOSE [id number]-jqakluql (FIORICET, ESGIC) 50-325-40 mg per tablet Take 1 tablet by mouth every 6 (six) hours if needed. for pain ADDITION doxepin (SINEquan) 75 mg capsule Take 2 capsules (150 mg total) by mouth at bedtime. Note written 02/22/2025 1622: PATIENT REPORTS A CHANGE FROM 75MG TWICE DAILY doxycycline hyclate (VIBRA-TABS) 20 mg tablet Take 1 tablet (20 mg total) by mouth every 12 (twelve) hours. ADDITION naloxone (NARCAN) 4 mg/0.1 mL nasal spray Administer 1 each (4 mg total) into affected nostril(s) if needed for opioid reversal. Give 4 mg (1 spray) into one nostril. May repeat every 2-3 minutes if needed, alternating nostrils, until medical assistance becomes available. predniSONE (DELTASONE) 20 mg tablet Take 2 tablets (40 mg total) by mouth 1 (one) time each day. ADDITION pregabalin (LYRICA) 200 mg capsule Take 1 capsule (200 mg total) by mouth at bedtime. Note written 02/22/2025 1624: PATIENT REPORTS A DECREASE FROM 200MG TWICE DAILY zaleplon (SONATA) 5 mg capsule Take 1 capsule (5 mg total) by mouth at bedtime. Patient not taking.Reported on 02/22/2025 Thank you, Celena Posadas Medication Historian W: [phone] * Mary Flower RN - 02/22/2025 4:17 PM EST ED RN HANDOFF (All Cervantes Below Must Be Completed) Reason/Diagnosis for Admission: Sepsis Type of Admission: [x] Medsurg, [] Telemetry Already in a Hospital Bed: [] Yes / [x] No Room Considerations/Precautions (ex: fever, diarrhea, or any infectious concerns): [] Yes / [x] No Manufacturing Associate: [] Yes / [x] No If YES, Cardiac Rhythm: [] NSR, [] SB, [] ST, [] A-FIB, [] A-Flutter, [] Pacemaker, [] 1st Degree HB, [] 2nd Degree HB, [] 3rd Degree HB Reason for Manufacturing Associate: O2 []Yes /[x]No If YES, how many Liters: VS: Visit Vitals BP 129/78 Pulse 103 Temp 36.6 ??C (97.9 ??F) (Oral) Resp 13 Ht 1.422 m (56 ) Wt 95.3 kg (210 lb) SpO2 98% BMI 47.08 kg/m?? Smoking Status Never BSA 1.81 m?? Current Mental Status: A/O x [x]4, []3, []2, []1 IV Access: [x] Yes / [] No Field IV present: [] Yes / [x] No Hx of Violence: [] Yes / [x] No / [] Unknown Current Ambulation Status: Normally uses walker but is too weak to ambulate today. Used bed hodge today. Fall Risk:[x] Yes / [] No Yellow Bracelet Applied [] Yes / [] No Yellow Socks Applied [] Yes / [] No Patient Belongings inventoried and BL completed: [] Yes / [] No Patient belongings stored in the security closet: [] Yes (If Yes please supply Security bag #): [] No Patient Medications stored in Pharmacy: [] Yes (If Yes please supply Medication Security bag #): [] No ED Summary of Care: Nausea, weakness x 3 days. Taking meds for UTI currently but not feeling well since. Lactate 3.8. 2 L LR bolus running, mag sulfate 2 g infusing, Zosyn 4.5 g infusing at 200 ml/hr. Will hang Vancomycin 2500 mg if Zosyn finishes before pt goes up. If not - vancomycin will go up with pt. * Mary Flower RN - 02/22/2025 12:20 PM EST Pt BIBA from home with c/o weakness and a possible UTI. Dx about 2 weeks ago with UTI and finished course of abx. Over last few days has been feeling weak and nauseous. Pt states has had urosepsis inthe past and this feels similar. * Petey Bahkta MD - 02/22/2025 12:14 PM EST HPI Chief Complaint Patient presents with Weakness - Generalized HPI Patient is a 49-year-old female with history of cerebral palsy, DJD, diabetes insipidus, diabetes, chronic anemia, hyperlipidemia, hypertension, hypothyroidism and COPD presenting with 3 days of worsening generalized weakness, sore throat, rhinorrhea, and dysuria that worsened today. Patient statesshe was recently diagnosed with a UTI 2 weeks ago and is currently on a course of an unknown antibiotic. Patient is concerned that she may be developing sepsis due to an underlying infection and is felt similarly before prior to being diagnosed with sepsis. Patient denies fever, chills, cough, chest pain, shortness of breath, nausea, vomiting or diarrhea. 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 Denies any new vision changes. No data recorded Patient History Medical History[1] Surgical History[2] Family History[3] Social History Tobacco Use Smoking status: Never Smokeless tobacco: Never Substance Use Topics Alcohol use: Never Drug use: Never Review of Systems Review of Systems Physical Exam ED Triage Vitals Temp Pulse Resp BP -- -- -- -- SpO2 Temp src Heart Rate Source Patient Position -- -- -- -- BP Location FiO2 (%) -- -- Vitals: 02/22/25 1230 BP: 128/77 Pulse: (!) 111 Resp: 18 Temp: 36.8 ??C (98.2 ??F) SpO2: 96% Physical Exam Vitals reviewed Pulse ox interpreted by me: Normal on room air - General: Adult, awake & alert, resting comfortably, no acute distress - HEENT: grossly NC/AT, PERRLA, EOMI, OP clear without exudates or erythema, MMM - Neck: Moving normally. No obvious deformities. No tenderness - Pulm: Good inspiratory effort. CTAB. Normal work of breathing on Room Air - CV: Regular rate, regular rhythm. No murmurs/rubs appreciated. - Chest wall: No chest wall bruising or lesions. - Abd/GI: Soft, ND. NTTP, no rebound or guarding. - Back/Flanks: No skin findings. No tenderness. - MSK: Radial and DP pulses 2+ bilaterally. No lower extremity edema. - Neuro: Alert. Grossly oriented. Normal fluent speech. Patient is able to move all extremity spontaneously, negative pronator drift, equal weakness in the bilateral lower extremities this patient states is baseline. There is a lateral strabismus of the left eye that patient states is old and not new. Grossly no acute focal exam findings. - Derm: Warm and dry. No rashes noted. - Psych: Calm, cooperative, appropriate Additional findings:_ ED Course & [facility] Clinical Impressions as of 02/22/25 1622 Sepsis, due to unspecified organism, unspecified whether acute organ dysfunction present ([facility] V24, [facility] V28) Medical Decision Making Patient is a 49-year-old female presenting with 3 days of worsening generalized weakness, sore throat, rhinorrhea and worsening dysuria being treated on antibiotics for UTI. Vital signs on arrival are notable for tachycardia without hypotension, fever, hypoxia or tachypnea. Patient denies chest pain or shortness of breath. Initially patient was tachycardic and there is no suspected infectious source, patient currently being treated with antibiotics for UTI. Lactate came back elevated at 3.8. At time I was concerned forworsening sepsis, and 2 L of IV fluids less than 30 cc/kg ordered to avoid volume overload, broad-spectrum antibiotics and blood cultures were ordered. EKG sinus tachycardia 106 bpm, intervals are within normal limits, normal axis, no sign of acute ischemia similar EKG when compared to prior. Other labs reviewed notable for magnesium 1.8, mild elevation in AST and ALT, T. bili within normallimits, lipase negative, no leukocytosis, no anemia, troponin negative, viral swabs negative. My preliminary interpretation of chest x-ray no consolidation, effusion or pneumothorax. I agree with radiology interpretation. Patient does have a left eye strabismus which patient states is chronic at baseline, no vision changes, no other focal or unilateral neurological deficits. No reported dizziness or vertigo. Lower suspicion for ischemic or hemorrhagic stroke no further workup was pursued at this time. On reevaluation patient then endorsed abdominal pain. CT abdomen pelvis with contrast ordered whichshowed colonic fecal loading suggestive of constipation and multifocal bilateral renal cortical scarring and multiple bilateral nontracking renal calculi. No other acute process was identified. On reevaluation patient is resting comfortably in gurney no acute distress. I do not believe patient is in septic shock. Heart rate has improved after IV fluids. Patient was admitted to medicine for sepsis, IV antibiotics and further workup and evaluation. Urinalysis is pending at this time. Procedures Petey Bhakta MD 02/22/25 1236 Petey Bhakta MD 02/22/25 1502 Petey Bhakta MD 02/22/25 1537 [1] Past Medical History: Diagnosis Date Anxiety Cerebral palsy (CMS/HCC V24, CMS/HCC V28) Chronic anemia Depression Diabetes insipidus (CMS/HCC V24) Diabetes mellitus (CMS/HCC V24, CMS/HCC V28) GERD (gastroesophageal reflux disease) Hyperlipidemia Hypertension Hypothyroidism Insomnia Migraines [2] Past Surgical History: Procedure Laterality Date APPENDECTOMY OTHER SURGICAL HISTORY Transsphenoidal hypophysectomy OTHER SURGICAL HISTORY Multiple surgeries at [facility] related to cerebral palsy [3] No family history on file. Petey Bhakta MD 02/22/25 3844 documented in this encounter H&P Notes * YVES Bocanegra - 02/22/2025 3:44 PM EST Images from the original note were not included. [facility] Please contact author [YVES Bocanegra] via [employer]. Patient: Addis Durant Admission Date/Time: 02/22/2025 12:15 PM : 1975 [49 y.o.] Patient's PCP: YVES Rowe Attending Provider: Petey Bhakta MD;Pedro* CHIEF COMPLAINT Weakness HISTORY OF PRESENT ILLNESS This is a 49-year-old female with past medical history significant for cerebral palsy, diabetes insipidus, hyperlipidemia, hypothyroidism, depression, insomnia, amongst others, who presents emergencyroom with complaints of weakness. Patient states over the past few days she has been experiencing generalized weakness, fatigue, malaise with abdominal pain. Describes her abdominal pain as: Constant, localized, nonradiating, stabbing, epigastric discomfort, with associated dysuria and malodorous urine. States she has been experiencing constipation with last bowel movement occurring yesterday at 02/21/2025. Additionally complainsof occasional symptoms of shortness of breath and chest discomfort occurring with deep breaths. Presents the emergency room for further evaluation and treatment. Denies fever, chills, focal weakness, headache, vision changes, cough, congestion, sore throat, sputum production, palpitations, nausea, vomiting, diarrhea, hematuria. Denies recent travel, surgeriesor sick contacts. Upon H&P patient is afebrile, heart rate 103, respiratory rate 13, blood pressure 129/78, oxygen saturation 98% on room air. Labs performed revealing WBC 8.2 with H&H 13.4/39.6, BUN 23 with creatinine 0.9, AST 62/ALT 93, alkaline phosphatase 138, magnesium 1.8, lactate 3.8. Blood cultures pending x 2. SARS- Cov 2, influenza A/B, and RSV testing negative. Chest x-ray imaging performed revealing no acute findings. EKG performed revealing sinus tachycardia with nonspecific T wave abnormality. Patient was administered IV fluids, magnesium and care was transferred to the medical service forfurther evaluation and treatment. Review of Systems Review of Systems Constitutional: Positive for fatigue. Respiratory: Positive for shortness of breath. Cardiovascular: Positive for chest pain. Neurological: Positive for weakness. All other systems reviewed and are negative. MEDICAL HISTORY Past Medical History Medical History[1] Past Surgical History Surgical History[2] Social History reports that she has never smoked. She has never used smokeless tobacco. She reports that she does not drink alcohol and does not use drugs. Lives with family. Uses walker for assistance with ambulation. Requires assistance with ADLs. Family History family history includes Thyroid disease in an other family member. Allergies is allergic to ambien [zolpidem], trazodone, and zolmitriptan. Home Medications Medications Ordered Prior to Encounter[3] OBJECTIVE Vitals Visit Vitals BP 129/78 Pulse 103 Temp 36.6 ??C (97.9 ??F) (Oral) Resp 13 Temp (24hrs), Av.7 ??C (98.1 ??F), Min:36.6 ??C (97.9 ??F), Max:36.8 ??C (98.2 ??F) Body mass index is 47.08 kg/m??. No results found for: PTWT , PTHT Physical Examination General Exam: Age appropriate, awake, calm, cooperative, appearing in no acute distress. Skin Exam: Warm, dry, intact, no diaphoresis. No rashes noted. Capillary refill < 3 seconds. Eye Exam: No scleral icterus HEENT exam: Head is normocephalic. Oral mucosa significantly dry. No pharyngeal erythema. No trismus, drooling, or difficulty handling secretions. Neck Exam: Soft/supple, full range of motion, no nuchal rigidity Respiratory Exam: Clear to auscultation bilaterally, no wheezes, rales or rhonchi. No tripoding, retractions or increased work of breathing. Speaking in full sentences without difficulties. Cardiovascular Exam: Regular rate and rhythm, no rubs gallops. Gastrointestinal Exam: No pulsations or visible masses, nondistended. Normoactive bowel sounds. Abdomen is soft, epigastric tenderness to palpation, without rebound/guarding. No additional areas of tenderness to palpation, or peritoneal signs appreciated. Musculoskeletal Exam: No calf tenderness or asymmetry, no lower extremity pitting edema. Moving allextremities at the major joint spaces without difficulty. Neurological Exam: Alert and oriented X3. No focal deficit. Smile symmetric. No dysarthria/dysphagia. Tongue midline when protruded. Hearing appropriate. Following commands without difficulties. Psychiatric exam: stable mood and affect LAB RESULTS (most recent) HEMATOLOGY Lab Results Component Value Date WBC 8.2 02/22/2025 HGB 13.4 02/22/2025 HCT 39.6 02/22/2025 MCV 102.1 (H) 02/22/2025 PLT 231 02/22/2025 CHEMISTRY Lab Results Component Value Date GLUCOSE 161 (A) 02/22/2025 NA 139 02/22/2025 K 4.7 02/22/2025 CO2 27 02/22/2025 CL 101 02/22/2025 BUN 23 02/22/2025 CREATININE 0.90 02/22/2025 EGFR 78 02/22/2025 CALCIUM 8.4 (L) 02/22/2025 MG 1.8 (L) 02/22/2025 PHOS 2.2 (L) 05/03/2024 ANIONGAP 11 02/22/[address] Abdomen Pelvis w Contrast Final Result 1. Moderate proximal colonic fecal loading suggesting constipation. 2. Multifocal bilateral renal cortical scarring and multiple bilateral nonobstructing renal calculi. No ureteral calculus. -------- FINAL REPORT -------- Dictated By: Stefan Ambriz Dictated Date: 02/22/2025 15:54 ET Assigned Physician: Stefan Ambriz Reviewed and Electronically Signed By: Stefan Ambriz Signed Date: 02/22/2025 16:01 ET Workstation ID: [id number] Transcribed By: Self Edit Transcribed Date: 02/22/2025 15:54 ET XR Chest 1 View Final Result No acute findings. -------- FINAL REPORT -------- Dictated By: Stefan Ambriz Dictated Date: 02/22/2025 12:53 ET Assigned Physician: Stefan Ambriz Reviewed and Electronically Signed By: Stefan Ambriz Signed Date: 02/22/2025 12:56 ET Workstation ID: [id number] Transcribed By: Self Edit Transcribed Date: 02/22/2025 12:53 ET ASSESSMENT & PLAN Urinary tract infection - Bring patient into the hospital, monitor vital signs, ins and outs per floor protocol - UA performed revealing many bacteria, 69.4 WBC, large leukocytes, trace blood - Prior urine cultures grew Klebsiella pneumoniae - Continue IV Zosyn and await urine culture/sensitivity. Hold vancomycin - Patient does not meet sepsis criteria upon hospitalization. She is tachycardic with heart rate 111, and lactic acid is 3.8 though she is: Afebrile, respiratory rate within normal limits, WBC 8.2 without left shift. - No acute organ dysfunction. - Blood cultures pending x 2 - States recent UTI with prescription for keflex and doxycycline which she is taking without reliefof symptoms. - Morning labs: CBCd, BMP ? 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 - Awaiting further outpatient Diabetes insipidus - Continue chronic desmopressin Mixed hyperlipidemia - Continue statin Hypothyroidism - Continue levothyroxine Depression Insomnia - Continue doxepin, Seroquel, venlafaxine Cerebral palsy - Continue tizanidine as prescribed Admission checklist [x] Code status: Prior [x] VTE Prophylaxis: Sequentials [x] Diet order on admission: Dietary Orders (From admission, onward) Start Ordered 02/22/25 1550 Adult diet [facility]; General, Diabetic; Regular; 75 gm carb/Meal Diet effective now Question Answer Comment Location [facility] Diet Type (req) General Diet Type (req) Diabetic General Diet Regular Diabetic 75 gm carb/Meal 02/22/25 5528 [x] Medication reconciliation Health Care proxy with Phone number: Emmie Escalera [phone] Lake [1] Past Medical History: Diagnosis Date ??? Anxiety ??? Cerebral palsy (CMS/HCC V24, CMS/HCC V28) ??? Chronic anemia ??? Depression ??? Diabetes insipidus (CMS/HCC V24) ??? Diabetes mellitus (CMS/HCC V24, CMS/HCC V28) ??? GERD (gastroesophageal reflux disease) ??? Hyperlipidemia ??? Hypertension ??? Hypothyroidism ??? Insomnia ??? Migraines [2] Past Surgical History: Procedure Laterality Date ??? APPENDECTOMY ??? OTHER SURGICAL HISTORY Transsphenoidal hypophysectomy ??? OTHER SURGICAL HISTORY Multiple surgeries at [facility] related to cerebral palsy [3] No current facility-administered medications on file prior to encounter. Current Outpatient Medications on File Prior to Encounter Medication Sig Dispense Refill ??? atorvastatin (LIPITOR) 40 mg tablet Take 1 tablet (40 mg total) by mouth 1 (one) time each day. ??? cephalexin (KEFLEX) 500 mg capsule Take 1 capsule (500 mg total) by mouth 1 (one) time each day. ??? cholecalciferol (VITAMIN D-3) 50 mcg (2,000 unit) capsule Take 1 capsule (2,000 Units total) bymouth 1 (one) time each day. ??? desmopressin (DDAVP) 0.2 mg tablet Take 1 tablet (0.2 mg total) by mouth 2 (two) times a day. ??? docusate sodium (COLACE) 100 mg capsule Take 1 capsule (100 mg total) by mouth 2 (two) times a day. ??? famotidine (PEPCID) 40 mg tablet Take 1 tablet (40 mg total) by mouth at bedtime. ??? levothyroxine (SYNTHROID, LEVOTHROID) 75 mcg tablet Take 1 tablet (75 mcg total) by mouth 1 (one) time each day before breakfast. ??? Myrbetriq 25 mg 24 hr tablet Take 1 tablet (25 mg total) by mouth 1 (one) time each day. ??? omeprazole (PriLOSEC) [address] capsule Take 1 capsule (40 mg total) by mouth 1 (one) time each day. ??? tobramycin-dexAMETHasone (TOBRADEX) ophthalmic suspension Administer 1 drop into both eyes every 4 (four) hours while awake. ??? pedstihsid-hchtujezuodes-frcddygf (FIORICET, ESGIC) 50-325-40 mg per tablet Take 1 tablet by mouth every 6 (six) hours if needed. for pain ??? doxepin (SINEquan) 75 mg capsule Take 2 capsules (150 mg total) by mouth at bedtime. ??? doxycycline hyclate (VIBRA-TABS) 20 mg tablet Take 1 tablet (20 mg total) by mouth every 12 (twelve) hours. ??? naloxone (NARCAN) 4 mg/0.1 mL nasal spray Administer 1 each (4 mg total) into affected nostril(s) if needed for opioid reversal. Give 4 mg (1 spray) into one nostril. May repeat every 2-3 minutesif needed, alternating nostrils, until medical assistance becomes available. 2 each 0 ??? predniSONE (DELTASONE) 20 mg tablet Take 2 tablets (40 mg total) by mouth 1 (one) time each day. ??? pregabalin (LYRICA) 200 mg capsule Take 1 capsule (200 mg total) by mouth at bedtime. ??? QUEtiapine (SEROquel) 200 mg tablet Take 1 tablet (200 mg total) by mouth at bedtime. ??? QUEtiapine (SEROquel) 50 mg tablet Take 1 tablet (50 mg total) by mouth 1 (one) time each day. ??? temazepam (RESTORIL) 15 mg capsule Take 1 capsule (15 mg total) by mouth at bedtime. at bedtime ??? tiZANidine (ZANAFLEX) 4 mg tablet Take [...] (5 mg total) by mouth at bedtime. ??? [DISCONTINUED] desmopressin (DDAVP) 0.1 mg tablet Take 1 tablet (0.1 mg total) by mouth 2 (two)times a day. ??? [DISCONTINUED] ferrous sulfate 325 mg (65 mg iron) EC tablet Take 1 tablet (325 mg total) by mouth 1 (one) time each day. Cosigned by Pedro Lake MD at 02/22/2025 6:39 PM EST documented in this encounter Plan of Treatment Pending Results Name Type Priority Associated Diagnoses Date /Time Urinalysis with reflex microscopic and culture Lab Routine 02/23/20 4:05 PM EST Scheduled Orders Name Type Priority Associated Diagnoses Orde r Schedule Urinalysis with reflex microscopic and culture Lab Routine Once for 1 Occurrences starting 02/22/2025 until 02/22/2025 Urinalysis with reflex microscopic and culture Lab Routine Once for 1 Occurrences starting 02/22/2025 until 02/22/2025 Scheduled Referrals Name Type Priority Associated Diagnoses Order Schedule Ambulatory referral to Home Health Outpatient Referral Routine Acute cystitis without hematuria 1 Occurrences starting 02/25/2025 until 02/25/2026 documented as of this encounter Procedures Procedure Name Priority Date/Time Associated Diagnosis Comments ECG ANNOTATED 02/25/2025 CBC WITH AUTO DIFFERENTIAL Routine 02/24/2025 5:55 AM EST CBC AND DIFFERENTIAL Routine 02/24/2025 5:55 AM EST BASIC METABOLIC PANEL Routine 02/24/2025 5:55 AM EST US ABDOMEN LIMITED Routine 02/23/2025 9: 31 AM EST CBC WITH AUTO DIFFERENTIAL Routine 02/23/2025 6:07 AM EST CBC AND DIFFERENTIAL Routine 02/23/2025 6:07 AM EST LACTATE Routine 02/23/2025 6:07 AM EST COMPREHENSIVE METABOLIC PANEL Routine 02/23/2025 6:07 AM EST LACTATE STAT 02/22/2025 8:14 PM EST BASIC METABOLIC PANEL STAT 02/22/2025 8:14 PM EST ECG 12-LEAD Routine 02/22/2025 5:47 PM EST TROPONIN I HIGH SENSITIVITY STAT 02/22/2025 5:11 PM EST EXTRA TUBES Routine 02/22/2025 5:11 PM EST LT BLUE - NA CITRATE Routine 02/22/2025 5:11 PM EST LACTATE STAT 02/22/2025 5:11 PM EST VARELA URINE CULTURE TUBE Routine 02/23/20 4:05 PM EST URINALYSIS WITH REFLEX MICROSCOPIC STAT 02/22/2025 3:55 PM EST URINALYSIS WITH REFLEX MICROSCOPIC STAT 02/22/2025 3:[address] ABDOMEN PELVIS W CONTRAST STAT 02/22/2025 3:41 PM EST POC GLUCOSE STAT 02/22/2025 2:13 PM EST POCT GLUCOSE BLOOD Routine 02/22/2025 2: 08 PM EST ECG 12-LEAD STAT 02/22/2025 1:26 PM EST [id number], RSV, FLU A AND B QUALITATIVE RT-PCR, INTERNAL LAB STAT 02/22/2025 1:15 PM EST TROPONIN I HIGH SENSITIVITY STAT 02/22/2025 1:15 PM EST THYROID STIMULATING HORMONE WITH REFLEX TO FREE T4 AND FREE T3 STAT 02/22/2025 1:15 PM EST CBC WITH AUTO DIFFERENTIAL STAT 02/22/2025 1:15 PM EST CULTURE BLOOD STAT 02/22/2025 1:15 PM EST CULTURE BLOOD STAT 02/22/2025 1:15 PM EST ACTIVATED PARTIAL THROMBOPLASTIN TIME STAT 02/22/2025 1:15 PM EST PROTHROMBIN TIME WITH INR STAT 02/22/2025 1:15 PM EST CBC AND DIFFERENTIAL STAT 02/22/2025 1:15 PM EST HCG, SERUM, QUALITATIVE STAT 02/23/20 1:15 PM EST MAGNESIUM STAT 02/22/2025 1:15 PM EST LIPASE STAT 02/22/2025 1:15 PM EST LACTATE STAT 02/22/2025 1:15 PM EST COMPREHENSIVE METABOLIC PANEL STAT 02/22/2025 1:15 PM EST XR CHEST 1 VIEW STAT 02/22/2025 12:48 PM EST documented in this encounter Results * ECG-Annotated (02/25/2025) us Provider Onbase MD ECG ORDERABLES Final Result * (ABNORMAL) CBC auto differential (02/24/2025 5:55 AM EST) [facility] WBC 8.3 4.8 - 10.8 K/mcL LAB HEMETOLOGY METHOD 02/24/2025 7:11 AM [facility] RBC 3.60(L) 3.80 - 4.80 M/mcL LAB HEMETOLOGY METHOD 02/24/2025 7:11 AM [facility] Hemoglobin 12.2 11.5 - 16.0 g/dL LAB HEMETOLOGY METHOD 02/24/2025 7:11 AM [facility] Hematocrit 34.9(L) 35.0 - 47.0 % LAB HEMETOLOGY METHOD 02/24/2025 7:11 AM [facility] MCV 97.8 79.0 - 98.0 FL LAB HEMETOLOGY METHOD 02/24/2025 7:11 AM [facility] MCH 34.2(H) 27.0 - 32.0 pcg LAB HEMETOLOGY METHOD 02/24/2025 7:11 AM [facility] MCHC 35.0 32.0 - 37.0 g/dL LAB HEMETOLOGY METHOD 02/24/2025 7:11 AM [facility] RDW 14.2 11.0 - 15.0 % LAB HEMETOLOGY METHOD 02/24/2025 7:11 AM [facility] Platelets 205 130 - 400 K/mcL LAB HEMETOLOGY METHOD 02/24/2025 7:11 AM [facility] MPV 9.2 7.0 - 11.0 FL LAB HEMETOLOGY METHOD 02/24/2025 7:11 AM [facility] NRBC 0.0 <1.0 % LAB HEMETOLOGY METHOD 02/24/2025 7:11 AM [facility] NRBC Absolute 0.00 <0.10 K/mcL LAB HEMETOLOGY METHOD 02/24/2025 7:11 AM [facility] Neutrophils Relative 54.5 % LAB HEMETOLOGY METHOD 02/24/2025 7:11 AM [facility] Lymphocytes Relative 34.9 % LAB HEMETOLOGY METHOD 02/24/2025 7:11 AM [facility] Monocytes Relative 8.2 % LAB HEMETOLOGY METHOD 02/24/2025 7:11 AM [facility] Eosinophils Relative 0.4 % LAB HEMETOLOGY METHOD 02/24/2025 7:11 AM [facility] Basophils Relative 0.4 % LAB HEMETOLOGY METHOD 02/24/2025 7:11 AM [facility] Immature Granulocytes Relative 1.6 % LAB HEMETOLOGY METHOD 02/24/2025 7:11 AM [facility] Neutrophils Absolute 4.53 1.50 - 7.00 K/mcL LAB HEMETOLOGY METHOD 02/24/2025 7:11 AM [facility] Lymphocytes Absolute 2.90 1.00 - 5.00 K/mcL LAB HEMETOLOGY METHOD 02/24/2025 7:11 AM [facility] Monocytes Absolute 0.68 0.20 - 1.00 K/mcL LAB HEMETOLOGY METHOD 02/24/2025 7:11 AM [facility] Eosinophils Absolute 0.03 0.00 - 0.50 K/mcL LAB HEMETOLOGY METHOD 02/24/2025 7:11 AM [facility] Basophils Absolute 0.03 0.00 - 0.20 K/mcL LAB HEMETOLOGY METHOD 02/24/2025 7:11 AM [facility] Immature Granulocytes Absolute 0.13(H) 0.00 - 0.03 K/mcL LAB HEMETOLOGY METHOD 02/24/2025 7:11 AM [facility] Blood Venous blood specimen / Unknown Venipuncture / Unknown 02/24/2025 5:55 AM EST 02/24/2025 6:16 AM EST [facility] LAB BLOOD ORDERABLES Final R esult [facility] [address] [place] [address], * (ABNORMAL) Basic metabolic panel (02/24/2025 5:55 AM EST) Sodium 130(L) 133 - 145 mmol/L 02/24/2025 7:23 AM [facility] Potassium 3.9 3.5 - 5.5 mmol/L 02/24/2025 7:23 AM [facility] Chloride 94(L) 96 - 110 mmol/L 02/24/2025 7:23 AM [facility] CO2 25 21 - 32 mmol/L 02/24/2025 7:23 AM [facility] Anion Gap 11 3 - 11 02/24/2025 7:23 AM [facility] Glucose 78 70 - 100 mg/dL 02/24/2025 7:23 AM [facility] BUN 17 5 - 25 mg/dL 02/24/2025 7:23 AM [facility] Creatinine 0.69 0.50 - 1.10 mg/dL 02/24/2025 7:23 AM [facility] eGFR 105 >=60 mL/min/1. 73m2 02/24/2025 7:23 AM EST [facility] Comment:Calculation based on the Chronic Kidney Disease Epidemiology Collaboration (CKD-EPI) equation refit without adjustment for race. BUN/Creatinine Ratio 24.6 02/24/2025 7:23 AM EST [facility] Calcium 8.7 8.5 - 10.5 mg/dL 02/24/2025 7:23 AM EST [facility] Blood Venous blood specimen / Unknown Venipuncture / Unknown 02/24/2025 5:55 AM EST 02/24/2025 6:17 AM EST [facility] LAB BLOOD ORDERABLES Final R esult [facility] [address] [place] [address], [place] [phone] * US Abdomen Limited (02/23/2025 9:31 AM EST) Anatomical Region Laterality Modality Body Ultrasound 02/23/2025 9:52 AM EST Impressions 02/23/2025 9:56 AM EST Mild hepatic steatosis. Normal appearance of the gallbladder and biliary tree. -------- FINAL REPORT -------- Dictated By: Stefan Ambriz Dictated Date: 02/23/2025 09:52 ET Assigned Physician: Stefan Ambriz Reviewed and Electronically Signed By: Stefan Ambriz Signed Date: 02/23/2025 09:56 ET Workstation ID: [id number] Transcribed By: Self Edit Transcribed Date: 02/23/2025 09:52 ET Narrative 02/23/2025 9:56 AM EST PROCEDURE: Right upper quadrant ultrasound. HISTORY: elevated lft. COMPARISON: CT 02/22/2025. TECHNIQUE: Grayscale, color Doppler, and spectral Doppler ultrasound evaluation of the right upper quadrant of the abdomen. FINDINGS: LIVER: Mildly echogenic parenchyma, consistent with mild steatosis, with a small area of sparing along the gallbladder fossa. No focal lesion. Normal flow in the main portal vein. BILIARY: Normal gallbladder. Negative sonographic Rabago sign. Normal caliber biliary tree with no ductal filling defect. PANCREAS: Not well visualized. RIGHT KIDNEY: Normal size and echotexture. No hydronephrosis or focal lesion. Procedure Note Stefan Ambriz MD - 02/23/2025 PROCEDURE: Right upper quadrant ultrasound. HISTORY: elevated lft. COMPARISON: CT 02/22/2025. TECHNIQUE: Grayscale, color Doppler, and spectral Doppler ultrasoundevaluation of the right upper quadrant of the abdomen. FINDINGS: LIVER: Mildly echogenic parenchyma, consistent with mild steatosis, with asmall area of sparing along the gallbladder fossa. No focal lesion.Normal flow in the main portal vein. BILIARY: Normal gallbladder. Negative sonographic Rabago sign. Normalcaliber biliary tree with no ductal filling defect. PANCREAS: Not well visualized. RIGHT KIDNEY: Normal size and echotexture. No hydronephrosis or focallesion. IMPRESSION: Mild hepatic steatosis. Normal appearance of the gallbladder and biliary tree. -------- FINAL REPORT -------- Dictated By: Stefan Ambriz Dictated Date: 02/23/2025 09:52 ET Assigned Physician: Stefan Ambriz Reviewed and Electronically Signed By: Stefan Ambriz Signed Date: 02/23/2025 09:56 ET Workstation ID: [id number] Transcribed By: Self Edit Transcribed Date: 02/23/2025 09:52 ET us Emani MARINELLI [facility] US PROCEDURES Final Result * (ABNORMAL) CBC auto differential (02/23/2025 6:07 AM EST) WBC 9.4 4.8 - 10.8 K/mcL LAB HEMETOLOGY METHOD 02/23/2025 6:48 AM EST [facility] RBC 3.50(L) 3.80 - 4.80 M/mcL LAB HEMETOLOGY METHOD 02/23/2025 6:48 AM EST [facility] Hemoglobin 11.8 11.5 - 16.0 g/dL LAB HEMETOLOGY METHOD 02/23/2025 6:48 AM [facility] Hematocrit 35.6 35.0 - 47.0 % LAB HEMETOLOGY METHOD 02/23/2025 6:48 AM [facility] MCV 102.0(H) 79.0 - 98.0 FL LAB HEMETOLOGY METHOD 02/23/2025 6:48 AM [facility] MCH 33.8(H) 27.0 - 32.0 pcg LAB HEMETOLOGY METHOD 02/23/2025 6:48 AM [facility] MCHC 33.1 32.0 - 37.0 g/dL LAB HEMETOLOGY METHOD 02/23/2025 6:48 AM [facility] RDW 15.4(H) 11.0 - 15.0 % LAB HEMETOLOGY METHOD 02/23/2025 6:48 AM [facility] Platelets 220 130 - 400 K/mcL LAB HEMETOLOGY METHOD 02/23/2025 6:48 AM [facility] MPV 9.4 7.0 - 11.0 FL LAB HEMETOLOGY METHOD 02/23/2025 6:48 AM [facility] NRBC 0.0 <1.0 % LAB HEMETOLOGY METHOD 02/23/2025 6:48 AM [facility] NRBC Absolute 0.00 <0.10 K/mcL LAB HEMETOLOGY METHOD 02/23/2025 6:48 AM [facility] Neutrophils Relative 58.3 % LAB HEMETOLOGY METHOD 02/23/2025 6:48 AM [facility] Lymphocytes Relative 32.2 % LAB HEMETOLOGY METHOD 02/23/2025 6:48 AM [facility] Monocytes Relative 7.1 % LAB HEMETOLOGY METHOD 02/23/2025 6:48 AM [facility] Eosinophils Relative 0.7 % LAB HEMETOLOGY METHOD 02/23/2025 6:48 AM EST [facility] Basophils Relative 0.4 % LAB HEMETOLOGY METHOD 02/23/2025 6:48 AM [facility] Immature Granulocytes Relative 1.3 % LAB HEMETOLOGY METHOD 02/23/2025 6:48 AM EST [facility] Neutrophils Absolute 5.49 1.50 - 7.00 K/mcL LAB HEMETOLOGY METHOD 02/23/2025 6:48 AM EST [facility] Lymphocytes Absolute 3.03 1.00 - 5.00 K/mcL LAB HEMETOLOGY METHOD 02/23/2025 6:48 AM [facility] Monocytes Absolute 0.67 0.20 - 1.00 K/mcL LAB HEMETOLOGY METHOD 02/23/2025 6:48 AM EST [facility] Eosinophils Absolute 0.07 0.00 - 0.50 K/mcL LAB HEMETOLOGY METHOD 02/23/2025 6:48 AM EST [facility] Basophils Absolute 0.04 0.00 - 0.20 K/mcL LAB HEMETOLOGY METHOD 02/23/2025 6:48 AM [facility] Immature Granulocytes Absolute 0.12(H) 0.00 - 0.03 K/mcL LAB HEMETOLOGY METHOD 02/23/2025 6:48 AM EST [facility] Blood Venous blood specimen / Unknown Venipuncture / Unknown 02/23/2025 6:07 AM EST 02/23/2025 6:21 AM EST us Emani MARINELLI LAB BLOOD ORDERABLES Final Resu lt [facility] [address] [place] [address], * (ABNORMAL) Lactate (02/23/2025 6:07 AM EST) Lactate 2.2(H) 0.4 - 2.0 mmol/L 02/23/2025 6:49 AM [facility] Blood Venous blood specimen / Unknown Venipuncture / Unknown 02/23/2025 6:07 AM EST 02/23/2025 6:18 AM EST us Emani MARINELLI LAB BLOOD ORDERABLES Final Resu lt [facility] [address] [place] [address], * (ABNORMAL) Comprehensive metabolic panel (02/23/2025 6:07 AM EST) [facility] Sodium 138 133 - 145 mmol/L 02/23/2025 7:25 AM [facility] Potassium 4.1 3.5 - 5.5 mmol/L 02/23/2025 7:25 AM [facility] Chloride 100 96 - 110 mmol/L 02/23/2025 7:25 AM [facility] CO2 26 21 - 32 mmol/L 02/23/2025 7:25 AM [facility] Anion Gap 12(H) 3 - 11 02/23/2025 7:25 AM [facility] Glucose 76 70 - 100 mg/dL 02/23/2025 7:25 AM [facility] BUN 19 5 - 25 mg/dL 02/23/2025 7:25 AM [facility] Creatinine 0.77 0.50 - 1.10 mg/dL 02/23/2025 7:25 AM [facility] eGFR 94 >=60 mL/min/1. 73m2 02/23/2025 7:25 AM [facility] Comment:Calculation based on the Chronic Kidney Disease Epidemiology Collaboration (CKD-EPI) equation refit without adjustment for race. BUN/Creatinine Ratio 24.7 02/23/2025 7:25 AM [facility] Calcium 8.8 8.5 - 10.5 mg/dL 02/23/2025 7:25 AM [facility] AST (SGOT) 25 10 - 42 unit/L 02/23/2025 7:25 AM [facility] ALT (SGPT) 72(H) 10 - 60 unit/L 02/23/2025 7:25 AM [facility] Alkaline Phosphatase 87 42 - 121 unit/L 02/23/2025 7:25 AM [facility] Total Protein 5.6(L) 6.0 - 8.0 g/dL 02/23/2025 7:25 AM [facility] Albumin 3.7 3.2 - 5.0 g/dL 02/23/2025 7:25 AM [facility] Total Bilirubin 0.9 0.0 - 1.4 mg/dL 02/23/2025 7:25 AM [facility] Blood Venous blood specimen / Unknown Venipuncture / Unknown 02/23/2025 6:07 AM EST 02/23/2025 6:20 AM EST us Emani MARINELLI LAB BLOOD ORDERABLES Final Resu lt [facility] [address] [place] [address], * (ABNORMAL) Basic metabolic panel (02/22/2025 8:14 PM EST) Sodium 139 133 - 145 mmol/L 02/22/2025 8:44 PM [facility] Potassium 4.5 3.5 - 5.5 mmol/L 02/22/2025 8:44 PM [facility] Chloride 102 96 - 110 mmol/L 02/22/2025 8:44 PM [facility] CO2 26 21 - 32 mmol/L 02/22/2025 8:44 PM [facility] Anion Gap 11 3 - 11 02/22/2025 8:44 PM [facility] Glucose 137(H) 70 - 100 mg/dL 02/22/2025 8:44 PM [facility] BUN 18 5 - 25 mg/dL 02/22/2025 8:44 PM [facility] Creatinine 0.84 0.50 - 1.10 mg/dL 02/22/2025 8:44 PM [facility] eGFR 84 >=60 mL/min/1. 73m2 02/22/2025 8:44 PM [facility] Comment:Calculation based on the Chronic Kidney Disease Epidemiology Collaboration (CKD-EPI) equation refit without adjustment for race. BUN/Creatinine Ratio 21.4 02/22/2025 8:44 PM [facility] Calcium 8.8 8.5 - 10.5 mg/dL 02/22/2025 8:44 PM [facility] Blood Venous blood specimen / Unknown Venipuncture / Unknown 02/22/2025 8:14 PM EST 02/22/2025 8:19 PM EST us Emani MARINELLI LAB BLOOD ORDERABLES Final Resu lt [facility] [address] [place] [address], * (ABNORMAL) Lactate (02/22/2025 8:14 PM EST) Lactate 3.2(HH) 0.4 - 2.0 mmol/L 02/22/2025 9:05 PM [facility] Blood Venous blood specimen / Unknown Venipuncture / Unknown 02/22/2025 8:14 PM EST 02/22/2025 8:19 PM EST Emani MARINELLI LAB BLOOD ORDERABLES Final Resu lt Performing Organization Address [facility]/ZIP Co de Phone Number [facility] [address] [place] [address], [place] [phone] * ECG 12 lead (02/22/2025 5:47 PM EST) Ventricular Rate ECG 105 BPM GEMUSE Atrial Rate 105 BPM GEMUSE P-R Interval 128 ms GEMUSE QRS Duration 80 ms GEMUSE Q-T Interval 334 ms GEMUSE QTc 441 ms GEMUSE P Wave [place] 56 degrees GEMUSE R [place] 25 degrees GEMUSE T [place] 11 degrees GEMUSE ECG Interpretation Sinus tachycardia Nonspecific T wave abnormality When compared with ECG of 22-FEB-2025 13:26, No significant change was found Confirmed by SANDOR MISTRY ([id number]) on 02/24/2025 11:40:03 PM GEMUSE 02/22/2025 5:47 PM EST 02/24/2025 11:40 PM EST Emani MARINELLI ECG ORDERABLES Final Result Performing Organization Address [facility] Phone Number GEMUSE * Light blue tube (02/22/2025 5:11 PM EST) Pathologist [facility] Extra Tube Hold for add-ons. 02/22/2025 7:01 PM EST [facility] Comment:Auto resulted. Blood Venous blood specimen / Unknown 02/22/2025 5:11 PM EST 02/22/2025 5:19 PM EST Petey Bhakta MD LAB BLOOD ORDERABLES Final Resul t Performing Organization Address [facility] Co de Phone Number [facility] [address] [place] [address], [place] [phone] * (ABNORMAL) Lactate (02/22/2025 5:11 PM EST) [facility] Lactate 6.0(HH) 0.4 - 2.0 mmol/L 02/22/2025 5:56 PM EST [facility] Blood Venous blood specimen / Unknown Venipuncture / Unknown 02/22/2025 5:11 PM EST 02/22/2025 5:20 PM EST us Emani MARINELLI LAB BLOOD ORDERABLES Final Resu lt [facility] [address] [place] [address], [place] [phone] * Troponin I high sensitivity (02/22/2025 5:11 PM EST) [facility] High Sensitivity Troponin I 6 <=34 ng/L 02/22/2025 5:57 PM EST [facility] Blood Venous blood specimen / Unknown Venipuncture / Unknown 02/22/2025 5:11 PM EST 02/22/2025 5:18 PM EST us Emani MARINELLI LAB BLOOD ORDERABLES Final Resu lt [facility] [address] [place] [address], [place] [phone] * Varela urine culture tube (02/22/2025 4:05 PM EST) [facility] Extra Tube Hold for add-ons. 02/22/2025 6:01 PM EST [facility] Comment:Auto resulted. Urine Urine specimen obtained by clean catch procedure / Unknown Non-blood Collection / Unknown 02/22/2025 4:05 PM EST 02/22/2025 4:49 PM EST us Emani MARINELLI LAB URINE ORDERABLES Final Resu lt [facility] [address] [place] [address], [place] [phone] * (ABNORMAL) Urinalysis with reflex microscopic (02/22/2025 3:55 PM EST) Specific [place] Urine 1.020 1.003 - 1.030 LAB URINALYSIS - AUTOMATED METHOD 02/22/2025 4:46 PM [facility] pH, Urine 7.0 5.0 - 8.0 pH LAB URINALYSIS - AUTOMATED METHOD 02/22/2025 4:46 PM [facility] Leukocytes, Urine Moderate(A) Negative LAB URINALYSIS - AUTOMATED METHOD 02/22/2025 4:46 PM [facility] Nitrite, Urine Positive(A) Negative LAB URINALYSIS - AUTOMATED METHOD 02/22/2025 4:46 PM [facility] Protein, Urine Trace <=Trace mg/dL LAB URINALYSIS - AUTOMATED METHOD 02/22/2025 4:46 PM [facility] Glucose, Urine Negative Negative mg/dL LAB URINALYSIS - AUTOMATED METHOD 02/22/2025 4:46 PM [facility] Ketones, Urine Trace(A) Negative mg/dL LAB URINALYSIS - AUTOMATED METHOD 02/22/2025 4:46 PM [facility] Urobilinogen , Urine 0.2 0.2 - 1.0 mg/dL LAB URINALYSIS - AUTOMATED METHOD 02/22/2025 4:46 PM [facility] Bilirubin, Urine Negative Negative LAB URINALYSIS - AUTOMATED METHOD 02/22/2025 4:46 PM [facility] Blood, Urine Trace(A) Negative LAB URINALYSIS - AUTOMATED METHOD 02/22/2025 4:46 PM [facility] RBC, Urine 4 0 - 4 /HPF 02/22/2025 4:46 PM EST [facility] WBC, Urine 10(H) 0 - 4 /HPF 02/22/2025 4:46 PM EST [facility] Squamous Epithelial, Urine 10 0 - 60 /LPF 02/22/2025 4:46 PM [facility] Bacteria, Urine Negative Negative /HPF 02/22/2025 4:46 PM EST [facility] Hyaline Casts, Urine 0 0 - 3 /LPF 02/22/2025 4:46 PM [facility] Urine Urine specimen obtained by clean catch procedure / Unknown Non-blood Collection / Unknown 02/22/2025 3:55 PM EST 02/22/2025 4:06 PM EST us Petey Bhakta MD LAB URINE ORDERABLES Final Resul t [facility] [address] [place] [address], * CT Abdomen Pelvis w Contrast (02/22/2025 3:41 PM EST) Anatomical Region Laterality Modality Body Computed Tomogra phy 02/22/2025 3:54 PM EST Impressions 02/22/2025 4:01 PM EST 1. Moderate proximal colonic fecal loading suggesting constipation. 2. Multifocal bilateral renal cortical scarring and multiple bilateral nonobstructing renal calculi. No ureteral calculus. -------- FINAL REPORT -------- Dictated By: Stefan Ambriz Dictated Date: 02/22/2025 15:54 ET Assigned Physician: Stefan Ambriz Reviewed and Electronically Signed By: Stefan Ambriz Signed Date: 02/22/2025 16:01 ET Workstation ID: [id number] Transcribed By: Self Edit Transcribed Date: 02/22/2025 15:54 ET Narrative 02/22/2025 4:01 PM EST PROCEDURE: Contrast enhanced CT of the abdomen and pelvis. HISTORY: abd pain. COMPARISON: 05/03/2024. TECHNIQUE: Contrast-enhanced CT of the abdomen and pelvis with coronal and sagittal reformats. IV contrast dose: 90 mL ISOVUE-370. Dose length product: 1287 mGy-cm. FINDINGS: Lung bases: Normal. Cardiac: Normal heart size. Mild coronary artery calcification. Liver: Slightly low in attenuation suggestive of mild steatosis. No focal lesion. Portal veins are patent. Biliary: Normal gallbladder and biliary tree. Pancreas: Normal. Spleen: Normal. Adrenal glands: Normal. Kidneys: Multifocal cortical thinning consistent with scarring. Bilateral nonobstructing renal calculi. The largest calculi are a 6 mm lower pole calculus on the left and a 4 mm lower pole calculus on the right. Normal appearance of the ureters. Retroperitoneum: No mass or adenopathy. Abdominal vasculature: Minimal atherosclerotic calcifications. Bowel/mesentery: Redundant sigmoid. Moderate proximal colonic fecal loading. No obstruction or adenopathy. No mass or ascites. Abdominal wall: There is a generator device in the right gluteal subcutaneous fat with a lead projecting into the right S3-4 neural foramen. Pelvic nodes: No adenopathy. Pelvic organs: Well-positioned intrauterine device. Bones: Demineralized. Degenerative changes of the hips, left greater than right. Multilevel degenerative changes of the spine. The T10-11 endplates and facet joints are fused. Procedure Note Stefan Ambriz MD - 02/22/2025 PROCEDURE: Contrast enhanced CT of the abdomen and pelvis. HISTORY: abd pain. COMPARISON: 05/03/2024. TECHNIQUE: Contrast-enhanced CT of the abdomen and pelvis with coronal andsagittal reformats. IV contrast dose: 90 mL ISOVUE-370. Dose length product: 1287 mGy-cm. FINDINGS: Lung bases: Normal. Cardiac: Normal heart size. Mild coronary artery calcification. Liver: Slightly low in attenuation suggestive of mild steatosis. No focallesion. Portal veins are patent. Biliary: Normal gallbladder and biliary tree. Pancreas: Normal. Spleen: Normal. Adrenal glands: Normal. Kidneys: Multifocal cortical thinning consistent with scarring. Bilateralnonobstructing renal calculi. The largest calculi are a 6 mm lower polecalculus on the left and a 4 mm lower pole calculus on the right. Normalappearance of the ureters. Retroperitoneum: No mass or adenopathy. Abdominal vasculature: Minimal atherosclerotic calcifications. Bowel/mesentery: Redundant sigmoid. Moderate proximal colonic fecalloading. No obstruction or adenopathy. No mass or ascites. Abdominal wall: There is a generator device in the right glutealsubcutaneous fat with a lead projecting into the right S3-4 neuralforamen. Pelvic nodes: No adenopathy. Pelvic organs: Well-positioned intrauterine device. Bones: Demineralized. Degenerative changes of the hips, left greater thanright. Multilevel degenerative changes of the spine. The [id number] and facet joints are fused. IMPRESSION: 1. Moderate proximal colonic fecal loading suggesting constipation. 2. Multifocal bilateral renal cortical scarring and multiple bilateralnonobstructing renal calculi. No ureteral calculus. -------- FINAL REPORT -------- Dictated By: Stefan Ambriz Dictated Date: 02/22/2025 15:54 ET Assigned Physician: Stefan Ambriz Reviewed and Electronically Signed By: Stefan Ambriz Signed Date: 02/22/2025 16:01 ET Workstation ID: [id number] Transcribed By: Self Edit Transcribed Date: 02/22/2025 15:54 ET us Petey Bhakta MD IMG CT PROCEDURES Final Result * (ABNORMAL) POC Glucose Manually Resulted (02/22/2025 2:13 PM EST) [facility] Glucose POC 161(A) 70 - 110 mg/dL Blood Capillary blood specimen / Unknown 02/22/2025 2:13 PM EST us Petey Bhakta MD POINT OF CARE TEST ENTER/EDIT OR DERABLES Edited Result - Final * (ABNORMAL) POCT Glucose, blood (02/22/2025 2:08 PM EST) Glucose POCT 161(H) 70 - 100 mg/dL 02/22/2025 2:08 PM EST [facility] Blood Capillary blood specimen / Unknown 02/22/2025 2:08 PM EST 02/22/2025 2:09 PM EST us Petey Bhakta MD LAB POINT OF CARE TE ST DOCKED DEVICE UNSOLICITED RESULTS Final Result Performing Organization Address [facility]/ZIP Co de Phone Number [facility] [address] [place] [address], [place] [phone] * 12-Lead ECG (02/22/2025 1:26 PM EST) Ventricular Rate ECG 106 BPM GEMUSE Atrial Rate 106 BPM GEMUSE P-R Interval 126 ms GEMUSE QRS Duration 78 ms GEMUSE Q-T Interval 320 ms GEMUSE QTc 425 ms GEMUSE P Wave [place] 56 degrees GEMUSE R [place] 32 degrees GEMUSE T [place] 14 degrees GEMUSE ECG Interpretation Sinus tachycardia Nonspecific T wave abnormality Abnormal ECG When compared with ECG of 01-MAY-2024 17:33, No significant change was found Confirmed by Aria GUTIERREZ JOHN ([id number]) on 02/22/2025 5:23:16 PM GEMUSE 02/22/2025 1:26 PM EST 02/22/2025 5:23 PM EST us Petey Bhakta MD ECG ORDERABLES Final Result Performing Organization Address [facility] de Phone Number HIENUSE * Thyroid stimulating hormone with reflex to free t4 and free t3 (TSH Reflex) (02/22/2025 1:15 PM EST) TSH 0.99 0.40 - 4.00 mcIU/mL 02/22/2025 2:01 PM EST [facility] Blood Venous blood specimen / Unknown Venipuncture / Unknown 02/22/2025 1:15 PM EST 02/22/2025 1:32 PM EST us Petey Bhakta MD LAB BLOOD ORDERABLES Final Resul t Performing Organization Address [facility] Co de Phone Number [facility] [address] [place] [address], [place] [phone] * Blood Culture, Peripheral #2 (02/22/2025 1:15 PM EST) Culture, Blood No growth at 5 days 02/27/2025 2:01 PM EST [facility] Blood Venous blood specimen / Unknown Venipuncture / Unknown 02/22/2025 1:15 PM EST 02/22/2025 1:32 PM EST us Petey Bhakta MD LAB MICROBIOLOGY - GENERAL ORDER MARICARMEN Final Result [facility] [address] [place] [address], [place] [phone] * Blood Culture, Peripheral #1 (02/22/2025 1:15 PM EST) Culture, Blood No growth at 5 days 02/28/2025 8:01 AM EST [facility] Blood Venous blood specimen / Unknown Venipuncture / Unknown 02/22/2025 1:15 PM EST 02/22/2025 1:31 PM EST us Petey Bhakta MD LAB MICROBIOLOGY - GENERAL ORDER MARICARMEN Final Result [facility] [address] [place] [address], [place] [phone] * (ABNORMAL) CBC auto differential (02/22/2025 1:15 PM EST) WBC 8.2 4.8 - 10.8 K/[facility] LAB HEMETOLOGY METHOD 02/22/2025 1:42 PM EST [facility] RBC 3.90 3.80 - 4.80 M/[facility] LAB HEMETOLOGY METHOD 02/22/2025 1:42 PM EST [facility] Hemoglobin 13.4 11.5 - 16.0 g/dL LAB HEMETOLOGY METHOD 02/22/2025 1:42 PM EST [facility] Hematocrit 39.6 35.0 - 47.0 % LAB HEMETOLOGY METHOD 02/22/2025 1:42 PM [facility] MCV 102.1(H) 79.0 - 98.0 FL LAB HEMETOLOGY METHOD 02/22/2025 1:42 PM [facility] MCH 34.5(H) 27.0 - 32.0 pcg LAB HEMETOLOGY METHOD 02/22/2025 1:42 PM [facility] MCHC 33.8 32.0 - 37.0 g/dL LAB HEMETOLOGY METHOD 02/22/2025 1:42 PM [facility] RDW 15.9(H) 11.0 - 15.0 % LAB HEMETOLOGY METHOD 02/22/2025 1:42 PM [facility] Platelets 231 130 - 400 K/mcL LAB HEMETOLOGY METHOD 02/22/2025 1:42 PM [facility] MPV 9.4 7.0 - 11.0 FL LAB HEMETOLOGY METHOD 02/22/2025 1:42 PM [facility] NRBC 0.0 <1.0 % LAB HEMETOLOGY METHOD 02/22/2025 1:42 PM [facility] NRBC Absolute 0.00 <0.10 K/mcL LAB HEMETOLOGY METHOD 02/22/2025 1:42 PM [facility] Neutrophils Relative 69.9 % LAB HEMETOLOGY METHOD 02/22/2025 1:42 PM [facility] Lymphocytes Relative 19.8 % LAB HEMETOLOGY METHOD 02/22/2025 1:42 PM [facility] Monocytes Relative 7.8 % LAB HEMETOLOGY METHOD 02/22/2025 1:42 PM [facility] Eosinophils Relative 0.2 % LAB HEMETOLOGY METHOD 02/22/2025 1:42 PM EST [facility] Basophils Relative 0.6 % LAB HEMETOLOGY METHOD 02/22/2025 1:42 PM [facility] Immature Granulocytes Relative 1.7 % LAB HEMETOLOGY METHOD 02/22/2025 1:42 PM [facility] Neutrophils Absolute 5.73 1.50 - 7.00 K/mcL LAB HEMETOLOGY METHOD 02/22/2025 1:42 PM [facility] Lymphocytes Absolute 1.62 1.00 - 5.00 K/mcL LAB HEMETOLOGY METHOD 02/22/2025 1:42 PM [facility] Monocytes Absolute 0.64 0.20 - 1.00 K/mcL LAB HEMETOLOGY METHOD 02/22/2025 1:42 PM [facility] Eosinophils Absolute 0.02 0.00 - 0.50 K/mcL LAB HEMETOLOGY METHOD 02/22/2025 1:42 PM [facility] Basophils Absolute 0.05 0.00 - 0.20 K/mcL LAB HEMETOLOGY METHOD 02/22/2025 1:42 PM [facility] Immature Granulocytes Absolute 0.14(H) 0.00 - 0.03 K/mcL LAB HEMETOLOGY METHOD 02/22/2025 1:42 PM [facility] Blood Venous blood specimen / Unknown Venipuncture / Unknown 02/22/2025 1:15 PM EST 02/22/2025 1:32 PM EST us Petey Bhakta MD LAB BLOOD ORDERABLES Final Resul t [facility] [address] [place] [address], * hCG Qualitative (02/22/2025 1:15 PM EST) hCG Qual Negative Negative 02/22/2025 1:58 PM EST [facility] Blood Venous blood specimen / Unknown Venipuncture / Unknown 02/22/2025 1:15 PM EST 02/22/2025 1:32 PM EST us Petey Bhakta MD LAB BLOOD ORDERABLES Final Resul t Performing Organization Address [facility]/ZIP Co de Phone Number [facility] [address] [place] [address], [place] [phone] * APTT (02/22/2025 1:15 PM EST) aPTT 24.3 24.1 - 39.3 sec LAB COAGULATION METHOD 02/22/2025 1:51 PM EST [facility] Blood Venous blood specimen / Unknown Venipuncture / Unknown 02/22/2025 1:15 PM EST 02/22/2025 1:32 PM EST us Petey Bhakta MD LAB BLOOD ORDERABLES Final Resul t Performing Organization Address [facility] de Phone Number [facility] [address] [place] [address], [place] [phone] * (ABNORMAL) Protime-INR (02/22/2025 1:15 PM EST) Protime 9.9(L) 10.6 - 13.9 sec LAB COAGULATION METHOD 02/22/2025 1:51 PM EST [facility] INR 0.8 LAB COAGULATION METHOD 02/22/2025 1:51 PM EST [facility] Blood Venous blood specimen / Unknown Venipuncture / Unknown 02/22/2025 1:15 PM EST 02/22/2025 1:32 PM EST us Petey Bhakta MD LAB BLOOD ORDERABLES Final Resul t Performing Organization Address City/[facility]/ZIP Co de Phone Number [facility] [address] [place] [address], [place] [phone] * [id number], RSV, Influenza A and B qualitative RT-PCR (02/22/2025 1:15 PM EST) [facility] [facility] Influenza A PCR Not Detected Not Detected LAB MICROBIOLOGY METHOD 02/22/2025 2:25 PM EST [facility] Influenza B PCR Not Detected Not Detected LAB MICROBIOLOGY METHOD 02/22/2025 2:25 PM EST [facility] RSV PCR Not Detected Not Detected LAB MICROBIOLOGY METHOD 02/22/2025 2:25 PM EST [facility] SARS COV-2 Not Detected Not Detected LAB MICROBIOLOGY METHOD 02/22/2025 2:25 PM EST [facility] Swab Nasopharyngeal structure / Unknown Non-blood Collection / Unknown 02/22/2025 1:15 PM EST 02/22/2025 1:32 PM EST us Petey Bhakta MD LAB MICROBIOLOGY - GENERAL ORDER MARICARMEN Final Result Performing Organization Address City/[facility]/ZIP Co de Phone Number [facility] [address] [place] [address], [place] [phone] * Troponin I High Sensitivity (02/22/2025 1:15 PM EST) [facility] High Sensitivity Troponin I 6 <=34 ng/L 02/22/2025 1:58 PM EST [facility] Blood Venous blood specimen / Unknown Venipuncture / Unknown 02/22/2025 1:15 PM EST 02/22/2025 1:32 PM EST us Petey Bhakta MD LAB BLOOD ORDERABLES Final Resul t [facility] [address] [place] [address], [place] [phone] * (ABNORMAL) Magnesium (02/22/2025 1:15 PM EST) Magnesium 1.8(L) 1.9 - 2.6 mg/dL 02/22/2025 2:02 PM EST [facility] Blood Venous blood specimen / Unknown Venipuncture / Unknown 02/22/2025 1:15 PM EST 02/22/2025 1:32 PM EST us Petey Bhakta MD LAB BLOOD ORDERABLES Final Resul t Performing Organization Address City/[facility]/ZIP Co de Phone Number [facility] [address] [place] [address], [place] [phone] * Lipase (02/22/2025 1:15 PM EST) Pathologist [facility] Lipase 39 12 - 53 unit/L 02/22/2025 2:02 PM EST [facility] Blood Venous blood specimen / Unknown Venipuncture / Unknown 02/22/2025 1:15 PM EST 02/22/2025 1:32 PM EST us Petey Bhakta MD LAB BLOOD ORDERABLES Final Resul t Performing Organization Address [facility] de Phone Number [facility] [address] [place] [address], [place] [phone] * (ABNORMAL) Lactate (02/22/2025 1:15 PM EST) Pathologist [facility] Lactate 3.8(HH) 0.4 - 2.0 mmol/L 02/22/2025 2:39 PM EST [facility] Blood Venous blood specimen / Unknown Venipuncture / Unknown 02/22/2025 1:15 PM EST 02/22/2025 1:30 PM EST us Petey Bhakta MD LAB BLOOD ORDERABLES Final Resul t Performing Organization Address City/[facility]/ZIP Co de Phone Number [facility] [address] [place] [address], [place] [phone] * (ABNORMAL) Comprehensive Metabolic Panel (CMP) (02/22/2025 1:15 PM EST) Sodium 139 133 - 145 mmol/L 02/22/2025 2:07 PM [facility] Potassium 4.7 3.5 - 5.5 mmol/L 02/22/2025 2:07 PM [facility] Chloride 101 96 - 110 mmol/L 02/22/2025 2:07 PM [facility] CO2 27 21 - 32 mmol/L 02/22/2025 2:07 PM [facility] Anion Gap 11 3 - 11 02/22/2025 2:07 PM [facility] Glucose 149(H) 70 - 100 mg/dL 02/22/2025 2:07 PM [facility] BUN 23 5 - 25 mg/dL 02/22/2025 2:07 PM [facility] Creatinine 0.90 0.50 - 1.10 mg/dL 02/22/2025 2:07 PM [facility] eGFR 78 >=60 mL/min/1. 73m2 02/22/2025 2:07 PM [facility] Comment:Calculation based on the Chronic Kidney Disease Epidemiology Collaboration (CKD-EPI) equation refit without adjustment for race. BUN/Creatinine Ratio 25.6 02/22/2025 2:07 PM [facility] Calcium 8.4(L) 8.5 - 10.5 mg/dL 02/22/2025 2:07 PM [facility] AST (SGOT) 62(H) 10 - 42 unit/L 02/22/2025 2:07 PM [facility] ALT (SGPT) 93(H) 10 - 60 unit/L 02/22/2025 2:07 PM [facility] Alkaline Phosphatase 138(H) 42 - 121 unit/L 02/22/2025 2:07 PM EST [facility] Total Protein 6.4 6.0 - 8.0 g/dL 02/22/2025 2:07 PM EST [facility] Albumin 3.9 3.2 - 5.0 g/dL 02/22/2025 2:07 PM EST [facility] Total Bilirubin 0.5 0.0 - 1.4 mg/dL 02/22/2025 2:07 PM EST [facility] Blood Venous blood specimen / Unknown Venipuncture / Unknown 02/22/2025 1:15 PM EST 02/22/2025 1:32 PM EST us Petey Bhakta MD LAB BLOOD ORDERABLES Final Resul t [facility] [address] [place] [address], [place] [phone] * XR Chest 1 View (02/22/2025 12:48 PM EST) Anatomical Region Laterality Modality Body Radiographic Aniyah ging 02/22/2025 12:5 3 PM EST Impressions 02/22/2025 12:56 PM EST No acute findings. -------- FINAL REPORT -------- Dictated By: Stefan Ambriz Dictated Date: 02/22/2025 12:53 ET Assigned Physician: Stefan Ambriz Reviewed and Electronically Signed By: Stefan Ambriz Signed Date: 02/22/2025 12:56 ET Workstation ID: [id number] Transcribed By: Self Edit Transcribed Date: 02/22/2025 12:53 ET Narrative 02/22/2025 12:56 PM EST PROCEDURE: AP chest radiograph. HISTORY: weakness. COMPARISON: 05/01/2024. FINDINGS: Mild degenerative changes of the spine. Lungs, pleural spaces, pulmonary vasculature, and cardiomediastinal contours are normal. Procedure Note Stefan Ambriz MD - 02/22/2025 PROCEDURE: AP chest radiograph. HISTORY: weakness. COMPARISON: 05/01/2024. FINDINGS: Mild degenerative changes of the spine. Lungs, pleural spaces, pulmonaryvasculature, and cardiomediastinal contours are normal. IMPRESSION: No acute findings. -------- FINAL REPORT -------- Dictated By: Stefan Ambriz Dictated Date: 02/22/2025 12:53 ET Assigned Physician: Stefan Ambriz Reviewed and Electronically Signed By: Stefan Ambriz Signed Date: 02/22/2025 12:56 ET Workstation ID: [id number] Transcribed By: Self Edit Transcribed Date: 02/22/2025 12:53 ET Petey Bhakta MD IMG XR PROCEDURES Final Result documented in this encounter Visit Diagnoses Diagnosis Sepsis, due to unspecified organism, unspecified whether acute organ dysfunction present (CMS/HCC V24, CMS/[facility] V28)- Primary Sepsis, due to unspecified organism, unspecified whether acute organ dysfunction present (CMS/HCC V24, CMS/HCC V28) Acute cystitis without hematuria documented in this encounter Admitting Diagnoses Diagnosis Sepsis, due to unspecified organism, unspecified whether acute organ dysfunction present (CMS/HCC V24, CMS/HCC V28) documented in this encounter Administered Medications Inactive Administered Medications - up to 3 most recent administrations Medication Order MAR Action Action Date Dose Rate Site atorvastatin (LIPITOR) tablet 40 mg 40 mg, oral, Daily, First dose on Fri02/23/25 at 0900 Given 02/25/2025 8:59 AM EST 40 mg Given 02/24/2025 8:22 AM EST 40 mg Given 02/23/2025 9:55 AM EST 40 mg [id number] (FIORICET, ESGIC) 50-325-40 mg per tablet 1 tablet 1 tablet, oral, Every 6 hours PRN, headaches, Starting on Fri02/22/25 at 1648 Given 02/25/2025 3:26 PM EST 1 tablet Given 02/23/2025 9:35 PM EST 1 tablet cefTRIAXone (ROCEPHIN) 1 g in sterile water 10 mL IV syringe 1 g, intravenous, Administer over 3 Minutes, Every 24 hours, First dose on Fri02/23/25 at 1600, For 6 days, Do not administer simultaneously with any calcium containing solutions via a Y-site in any patient., Indication: Urinary Tract/Genitourinary Given 02/25/2025 3:26 PM EST 1 g Given 02/24/2025 4:43 PM EST 1 g Given 02/23/2025 3:31 PM EST 1 g cholecalciferol (VITAMIN D-3) tablet 2,000 Units 2,000 Units, oral, Daily, First dose on Fri02/23/25 at 0900, 1000 units = 25 mcg of cholecalciferol (VITAMIN D3) Given 02/25/2025 8:58 AM EST 2,000 Un its Given 02/24/2025 8:22 AM EST 2,000 Units Given 02/23/2025 9:54 AM EST 2,000 Units desmopressin (DDAVP) tablet 0.2 mg 0.2 mg, oral, 2 times daily, First dose on Fri02/22/25 at 2099 Given 02/25/2025 8:58 AM EST 0.2 mg Given 02/24/2025 9:08 PM EST 0.2 mg Given 02/24/2025 8:22 AM EST 0.2 mg docusate sodium (COLACE) capsule 100 mg 100 mg, oral, 2 times daily, First dose on Fri02/22/25 at 2100 Given 02/25/2025 8:58 AM EST 100 mg Given 02/24/2025 9:08 PM EST 100 mg Given 02/24/2025 8:22 AM EST 100 mg doxepin (SINEquan) capsule 150 mg 150 mg, oral, Nightly, First dose on Fri02/22/25 at 2100 Given 02/24/2025 9:07 PM EST 150 mg Given 02/23/2025 9:35 PM EST 150 mg Given 02/22/2025 8:41 PM EST 150 mg famotidine (PEPCID) tablet 40 mg 40 mg, oral, Nightly, First dose on Fri02/22/25 at 2100 Given 02/24/2025 9:08 PM EST 40 mg Given 02/23/2025 9:34 PM EST 40 mg Given 02/22/2025 8:40 PM EST 40 mg guaiFENesin (MUCINEX) 12 hr tablet 600 mg 600 mg, oral, Every 12 hours scheduled, First dose on Fri02/22/25 at 2100, Administer with plenty of fluids to ensure proper action. Do not crush, chew, or split. Given 02/25/2025 8:58 AM EST 600 mg Given 02/24/2025 9:08 PM EST 600 mg Given 02/24/2025 8:22 AM EST 600 mg iopamidoL (ISOVUE-370) 370 mg iodine /mL (76 %) injection 90 mL 90 mL, intravenous, Once in imaging, Starting on Fri02/22/25 at 1535, For 1 dose Given 02/22/2025 3:38 PM EST 90 mL lactated Ringer's bolus 1,000 mL 1,000 mL, intravenous, at 1,000 mL/hr, Administer over 1 Hours, Once, On Fri02/22/25 at 1232, For 1 dose New Bag 02/22/2025 1:20 PM EST 1,000 mL 1000 mL/hr lactated Ringer's bolus 1,000 mL 1,000 mL, intravenous, at 1,000 mL/hr, Administer over 1 Hours, Once, On Fri02/22/25 at 1443, For 1 dose New Bag 02/22/2025 2:56 PM EST 1,000 mL 1000 mL/hr levothyroxine (SYNTHROID, LEVOTHROID) tablet 75 mcg 75 mcg, oral, Every morning before breakfast, First dose on Fri02/23/25 at 0700, ORAL ROUTE: take on an empty stomach and separate from other medications. ENTERAL TUBE ROUTE: If newly initiated enteral nutrition duration is over 5 days, hold enteral nutrition 1 hour before and after drug administration, per ASPEN guidelines. Given 02/25/2025 6:31 AM EST 75 mcg Given 02/24/2025 6:10 AM EST 75 mcg Given 02/23/2025 6:36 AM EST 75 mcg magnesium sulfate 2 gram/50 mL (4 %) IVPB 2 g 2 g, intravenous, at 25 mL/hr, Administer over 2 Hours, Once, On Fri02/22/25 at 1443, For 1 dose New Bag 02/22/2025 2:58 PM EST 2 g 25 mL/hr ondansetron (PF) (ZOFRAN) injection 4 mg 4 mg, intravenous, Once, On Fri02/25/25 at 1600, For 1 dose Given 02/25/2025 3:39 PM EST 4 mg oxyCODONE (ROXICODONE) immediate release tablet 5 mg 5 mg, oral, Once, On Fri02/24/25 at 0400, For 1 dose Given 02/24/2025 4:22 AM EST 5 mg oxyCODONE (ROXICODONE) immediate release tablet 5 mg 5 mg, oral, Every 6 hours PRN, severe pain, Starting on Fri02/24/25 at 1027 Given 02/25/2025 4:46 AM EST 5 mg Given 02/24/2025 12:17 PM EST 5 mg pantoprazole (PROTONIX) EC tablet 40 mg 40 mg, oral, Every morning before breakfast, First dose on Fri02/23/25 at 0700, Do not crush, chew, or split. Given 02/25/2025 6:31 AM EST 40 mg Given 02/24/2025 6:10 AM EST 40 mg Given 02/23/2025 6:36 AM EST 40 mg piperacillin-tazobactam (ZOSYN) 3.375 g in sodium chloride 0.9 % 100 mL IVPB 3.375 g, intravenous, at 200 mL/hr, Administer over 30 Minutes, Every 6 hours, First dose on Fri02/22/25 at 2100, For 7 days, Do not administer through same line as lactated ringer s fluids (LR), Indication: Urinary Tract/Genitourinary New Bag 02/23/2025 2:16 PM EST 3.375 g 200 mL/hr New Bag 02/23/2025 9:55 AM EST 3.375 g 200 mL/hr New Bag 02/23/2025 2:52 AM EST 3.375 g 200 mL/hr piperacillin-tazobactam (ZOSYN) 4.5 g in sodium chloride 0.9 % 100 mL IVPB 4.5 g, intravenous, at 200 mL/hr, Administer over 0.5 Hours, Once, On Fri02/22/25 at 1500, For 1 dose, Do not administer through same line as lactated ringer s fluids (LR), Indication: Sepsis, Suspected source: unknown New Bag 02/22/2025 3:56 PM EST 4.5 g 200 m L/hr polyethylene glycol (MIRALAX) packet 17 g 17 g, oral, Daily, First dose on Fri02/24/25 at 1715 Given 02/25/2025 8:58 AM EST 17 g predniSONE (DELTASONE) tablet 40 mg 40 mg, oral, Daily, First dose on Fri02/22/25 at 1649 Given 02/25/2025 8:58 AM EST 40 mg Given 02/24/2025 8:22 AM EST 40 mg Given 02/23/2025 9:55 AM EST 40 mg pregabalin (LYRICA) capsule 200 mg 200 mg, oral, Nightly, First dose on Fri02/22/25 at 2100 Given 02/24/2025 9:08 PM EST 200 mg Given 02/23/2025 9:35 PM EST 200 mg Given 02/22/2025 8:40 PM EST 200 mg QUEtiapine (SEROquel) tablet 200 mg 200 mg, oral, Nightly, First dose on Fri02/22/25 at 2100 Given 02/24/2025 9:08 PM EST 200 mg Given 02/23/2025 9:36 PM EST 200 mg Given 02/22/2025 8:40 PM EST 200 mg QUEtiapine (SEROquel) tablet 50 mg 50 mg, oral, Daily, First dose on Fri02/23/25 at 0900 Given 02/25/2025 8:59 AM EST 50 mg Given 02/24/2025 8:22 AM EST 50 mg Given 02/23/2025 9:54 AM EST 50 mg senna (SENOKOT) tablet 17.2 mg 17.2 mg (2 tablet), oral, Nightly PRN, constipation, Starting on Fri02/24/25 at 1644 sodium chloride (OCEAN) 0.65 % nasal spray 1 spray 1 spray, Each Nostril, As needed, congestion, Starting on Fri02/22/25 at 2021 Given 02/22/2025 9:21 PM EST 1 spray sodium chloride 0.9 % flush 10 mL 10 mL, intravenous, Once, On Fri02/22/25 at 1536, For 1 dose Given 02/22/2025 3:38 PM EST 10 mL sodium chloride 0.9 % infusion 125 mL/hr, intravenous, Continuous, Starting on Fri02/22/25 at 1830, For 8 hours New Bag 02/22/2025 6:27 PM EST 125 mL/hr 125 mL/hr temazepam (RESTORIL) capsule 15 mg 15 mg, oral, Nightly - one time, First dose on Fri02/22/25 at 2230, For 1 dose, Hazardous Medication Intact: - Single pair of ASTM standard D6978 certified gloves - Eye/face protection if vomit or potential to spit up Manipulated (opening capsule): - Double pair of ASTM standard D6978 certified gloves - Eye/face protection if vomit or potential to spit up - Staff at reproductive risk must also wear a hazardous gown Given 02/22/2025 10:35 PM EST 15 mg thiamine (VITAMIN B-1) injection 100 mg 100 mg, intravenous, Once, On Fri02/22/25 at 1443, For 1 dose, If ordered IV, push slowly over 2 minutes. Given 02/22/2025 3:49 PM EST 100 mg tiZANidine (ZANAFLEX) tablet 4 mg 4 mg, oral, 2 times daily PRN, muscle spasms, Starting on Fri02/22/25 at 1648 Given 02/24/2025 8:22 AM EST 4 mg Given 02/23/2025 9:36 PM EST 4 mg Given 02/23/2025 3:49 PM EST 4 mg tobramycin-dexAMETHasone (TOBRADEX) ophthalmic suspension 1 drop 1 drop, Both Eyes, Every 4 hours while awake, First dose on Fri02/22/25 at 1800 Given 02/24/2025 4:44 PM EST 1 drop Given 02/24/2025 12:18 PM EST 1 drop Given 02/24/2025 8:24 AM EST 1 drop valACYclovir (VALTREX) tablet 1,000 mg 1,000 mg, oral, Daily, First dose on Fri02/23/25 at 0900, Indication: Herpes Virus Given 02/25/2025 8:58 A M EST 1,000 mg Given 02/24/2025 8:22 AM EST 1,000 mg Given 02/23/2025 9:55 AM EST 1,000 mg vancomycin (VANCOCIN) 2,500 mg in sodium chloride 0.9 % 500 mL IVPB 2,500 mg (rounded from 2,382.5 mg = 25 mg/kg 95.3 kg), intravenous, at 200 mL/hr, Administer over 150 Minutes, Once, On Fri02/22/25 at 1600, For 1 dose, Indication: Sepsis, Suspected source: unknown source New Bag 02/22/2025 4:30 PM EST 2,500 mg 200 mL/hr venlafaxine XR (EFFEXOR-XR) 24 hr capsule 150 mg 150 mg, oral, Nightly, First dose on Fri02/22/25 at 2100, Capsule may be swallowed whole, or may be opened and its contents sprinkled on applesauce if consumed immediately without chewing. Do not crush or chew. Given 02/24/2025 9:08 PM EST 150 mg Given 02/23/2025 9:36 PM EST 150 mg Given 02/22/2025 8:41 PM EST 150 mg documented in this encounter Discontinued Medications Medication Sig Discontinue Reason Start Date End Da te desmopressin (DDAVP) 0.1 mg tablet Take 1 tablet (0.1 mg total) by mouth 2 (two) times a day. Alternate therapy 02/22/2025 ferrous sulfate 325 mg (65 mg iron) EC tablet Take 1 tablet (325 mg total) by mouth 1 (one) time each day. Alternate therapy 02/22/2025 zaleplon (SONATA) 5 mg capsule Take 1 capsule (5 mg total) by mouth at bedtime. Therapy completed 09/25/2018 02/22/2025 documented as of this encounter Historical Medications * This list may reflect changes made after this encounter. desmopressin (DDAVP) 0.2 mg tablet Take 1 tablet (0.2 mg total) by mouth 2 (two) times a day. tobramycin-dexAM ETHasone (TOBRADEX) ophthalmic suspension Administer 1 drop into both eyes every 4 (four) hours while awake. 01/13/2025 temazepam (RESTORIL) 15 mg capsule Take 1 capsule (15 mg total) by mouth 1 (one) time each day. predniSONE (DELTASONE) 20 mg tablet Take 2 tablets (40 mg total) by mouth 1 (one) time each day. 02/01/2025 levothyroxine (SYNTHROID, LEVOTHROID) 75 mcg tablet Take 1 tablet (75 mcg total) by mouth 1 (one) time each day before breakfast. doxycycline hyclate (VIBRA-TABS) 20 mg tablet Take 1 tablet (20 mg total) by mouth every 12 (twelve) hours. 02/09/2025 docusate sodium (COLACE) 100 mg capsule Take 1 capsule (100 mg total) by mouth 2 (two) times a day. cholecalciferol (VITAMIN D-3) 50 mcg (2,000 unit) capsule Take 1 capsule (2,000 Units total) by mouth 1 (one) time each day. cephalexin (KEFLEX) 500 mg capsule Take 1 capsule (500 mg total) by mouth 1 (one) time each day. butalbital-aceta minophen-caffein e (FIORICET, ESGIC) 50-325-40 mg per tablet Take 1 tablet by mouth every 6 (six) hours if needed. for pain added in this encounter Active and Recently Administered Medications Times are shown in EST. Scheduled Medication Order 02/23/2025 02/24/2025 02/25/2025 atorvastatin (LIPITOR) tablet 40 mg 40 mg, oral, Daily, First dose on Fri02/23/25 at 0900 0955 (Given - Provider: Jannet Tompkins RN) 0822 (Given - Provider: Hair Black RN) 0859 (Given - Provider: Jannet Tompkins RN) cefTRIAXone (ROCEPHIN) 1 g in sterile water 10 mL IV syringe 1 g, intravenous, Administer over 3 Minutes, Every 24 hours, First dose on Fri02/23/25 at 1600, For 6 days, Do not administer simultaneously with any calcium containing solutions via a Y-site in any patient., Indication: Urinary Tract/Genitourinary 1531 (Given - Provider: Jannet Tompkins RN) 1643 (Given - Provider: Hair Black RN) 1526 (Given - Provider: Jannet Tompkins RN) cholecalciferol (VITAMIN D-3) tablet 2,000 Units 2,000 Units, oral, Daily, First dose on Fri02/23/25 at 0900, 1000 units = 25 mcg of cholecalciferol (VITAMIN D3) 0954 (Given - Provider: Jannet Tompkins RN) 0822 (Given - Provider: Hair Black RN) 08 (Given - Provider: Jannet Tompkins RN) desmopressin (DDAVP) tablet 0.2 mg 0.2 mg, oral, 2 times daily, First dose on Fri02/22/25 at 2099 09 (Given - Provider: Jannet Tompkins RN)2133 (Given - Provider: Kitty Aguirre RN) 821 (Given - Provider: Hair Black RN)2107 (Given - Provider: Mona Qureshi RN) 08 (Given - Provider: Jannet Tompkins RN) docusate sodium (COLACE) capsule 100 mg 100 mg, oral, 2 times daily, First dose on Fri02/22/25 at 2099 09 (Given - Provider: Jannet Tompkins RN)2134 (Given - Provider: Kitty Aguirre RN) 821 (Given - Provider: Hair Black RN)2107 (Given - Provider: Mona Qureshi RN) 857 (Given - Provider: Jannet Tompkins RN) doxepin (SINEquan) capsule 150 mg 150 mg, oral, Nightly, First dose on Fri02/22/25 at 2099 2134 (Given - Provider: Kitty Aguirre RN) 2106 (Given - Provider: Mona Qureshi RN) famotidine (PEPCID) tablet 40 mg 40 mg, oral, Nightly, First dose on Fri02/22/25 at 2099 2133 (Given - Provider: Kitty Aguirre RN) 2107 (Given - Provider: Mona Qureshi RN) guaiFENesin (MUCINEX) 12 hr tablet 600 mg 600 mg, oral, Every 12 hours scheduled, First dose on Fri02/22/25 at 2099, Administer with plenty of fluids to ensure proper action. Do not crush, chew, or split. 0954 (Given - Provider: Jannet Tompkins RN)2135 (Given - Provider: Kitty Aguirre RN) 821 (Given - Provider: Hair Black RN)2107 (Given - Provider: Mona Qureshi RN) 08 (Given - Provider: Jannet Tompkins RN) levothyroxine (SYNTHROID, LEVOTHROID) tablet 75 mcg 75 mcg, oral, Every morning before breakfast, First dose on Fri02/23/25 at 0700, ORAL ROUTE: take on an empty stomach and separate from other medications. ENTERAL TUBE ROUTE: If newly initiated enteral nutrition duration is over 5 days, hold enteral nutrition 1 hour before and after drug administration, per ASPEN guidelines. 0636 (Given - Provider: Steve Rubi RN) 0610 (Given - Provider: Kitty Aguirre RN) 0631 (Given - Provider: Mona Qureshi, RADHA) ondansetron (PF) (ZOFRAN) injection 4 mg (COMPLETED) 4 mg, intravenous, Once, On Fri02/25/25 at 1600, For 1 dose 1539 (Given - Provider: Jannet Tompkins RN) oxyCODONE (ROXICODONE) immediate release tablet 5 mg (COMPLETED) 5 mg, oral, Once, On Fri02/24/25 at 0400, For 1 dose 0422 (Given - Provider: Kitty Aguirre RN) pantoprazole (PROTONIX) EC tablet 40 mg 40 mg, oral, Every morning before breakfast, First dose on Fri02/23/25 at 0700, Do not crush, chew, or split. 0636 (Given - Provider: Steve Rubi RN) 0610 (Given - Provider: Kitty Aguirre RN) 0631 (Given - Provider: Mona Qureshi, RADHA) piperacillin-tazobactam (ZOSYN) 3.375 g in sodium chloride 0.9 % 100 mL IVPB (CANCELED) 3.375 g, intravenous, at 200 mL/hr, Administer over 30 Minutes, Every 6 hours, First dose on Fri02/22/25 at 2100, For 7 days, Do not administer through same line as lactated ringer s fluids (LR), Indication: Urinary Tract/Genitourinary 0252 (New Bag - Provider: Steve Rubi RN)0323 (Stopped - Provider: Steve Rubi RN)0955 (New Bag - Provider: Jannet Tompkins RN)1028 (Stopped - Provider: Jannet Tompkins RN)1416 (New Bag - Provider: Jannet Tompkins RN)1430 (Stopped - Provider: Jannet Tompkins RN) polyethylene glycol (MIRALAX) packet 17 g 17 g, oral, Daily, First dose on Fri02/24/25 at 1715 1716 (Not Given - Provider: Hair Black RN - Reason: Patient/Resident/Age nt refused - education provided ) 0858 (Given - Provider: Jannet Tompkins RN) predniSONE (DELTASONE) tablet 40 mg 40 mg, oral, Daily, First dose on Fri02/22/25 at 1649 0955 (Given - Provider: Jannet Tompkins RN) 0822 (Given - Provider: Hair Black RN) 0858 (Given - Provider: Jannet Tompkins RN) pregabalin (LYRICA) capsule 200 mg 200 mg, oral, Nightly, First dose on Fri02/22/25 at 2100 2135 (Given - Provider: Kitty Aguirre RN) 2108 (Given - Provider: Mona Qureshi, RADHA) QUEtiapine (SEROquel) tablet 200 mg 200 mg, oral, Nightly, First dose on Fri02/22/25 at 2100 2136 (Given - Provider: Kitty Aguirre, RADHA) 2108 (Given - Provider: Mona Qureshi, RADHA) QUEtiapine (SEROquel) tablet 50 mg 50 mg, oral, Daily, First dose on Fri02/23/25 at 0900 0954 (Given - Provider: Jannet Tompkins RN) 0822 (Given - Provider: Hair Black RN) 0859 (Given - Provider: Jannet oTmpkins RN) tobramycin-dexAMETHasone (TOBRADEX) ophthalmic suspension 1 drop 1 drop, Both Eyes, Every 4 hours while awake, First dose on Fri02/22/25 at 1800 1031 (Given - Provider: Jannet Tompkins RN)1416 (Given - Provider: Jannet Tompkins RN)1548 (Given - Provider: Jannet Tompkins RN)2147 (Given - Provider: Kitty Aguirre RN) 0824 (Given - Provider: Hair Black RN)1218 (Given - Provider: Hair Black RN)1644 (Given - Provider: Hair Black RN)2155 (Not Given - Provider: Mona Qureshi RN - Reason: Order parameters not met) 0904 (Not Given - Provider: Jannet Tompkins RN - Reason: Medication not available)1335 (Not Given - Provider: Jannet Tompkins RN - Reason: Medication not available)1534 (Not Given - Provider: Jannet Tompkins RN - Reason: Medication not available) valACYclovir (VALTREX) tablet 1,000 mg 1,000 mg, oral, Daily, First dose on Fri02/23/25 at 0900, Indication: Herpes Virus 0955 (Given - Provider: Jannet Tompkins RN) 0822 (Given - Provider: Hair Black RN) 0858 (Given - Provider: Jannet Tompkins RN) venlafaxine XR (EFFEXOR-XR) 24 hr capsule 150 mg 150 mg, oral, Nightly, First dose on Fri02/22/25 at 2100, Capsule may be swallowed whole, or may be opened and its contents sprinkled on applesauce if consumed immediately without chewing. Do not crush or chew. 213 (Given - Provider: Kitty Aguirre RN) 210 (Given - Provider: Mona Qureshi, RADHA) PRN Medication Order 02/23/2025 02/24/2025 02/25/2025 butalbital-acetaminophe n-caffeine (FIORICET, ESGIC) 50-325-40 mg per tablet 1 tablet 1 tablet, oral, Every 6 hours PRN, headaches, Starting on Fri02/22/25 at 1648 2135 (Given - Provider: Kitty Aguirre RN) 1526 (Given - Provider: Jannet Tompkins, RADHA) oxyCODONE (ROXICODONE) immediate release tablet 5 mg 5 mg, oral, Every 6 hours PRN, severe pain, Starting on Fri02/24/25 at 1027 1217 (Given - Provider: Hair Black RN) 0446 (Given - Provider: Mona Qureshi, RADHA) senna (SENOKOT) tablet 17.2 mg 17.2 mg (2 tablet), oral, Nightly PRN, constipation, Starting on Fri02/24/25 at 1644 sodium chloride (OCEAN) 0.65 % nasal spray 1 spray 1 spray, Each Nostril, As needed, congestion, Starting on Fri02/22/25 at 202 tiZANidine (ZANAFLEX) tablet 4 mg 4 mg, oral, 2 times daily PRN, muscle spasms, Starting on Fri02/22/25 at 1648 1549 (Given - Provider: Jannet Tompkins, RN)2136 (Given - Provider: Kitty Aguirre, RADHA) 0822 (Given - Provider: Hair Black RN) traMADoL (ULTRAM) tablet 50 mg 50 mg, oral, 2 times daily PRN, breakthrough pain, Starting on Fri02/22/25 at 1648, On hold since Fri02/22/2025 at 1648 until manually unheld 1910 (Unheld by provider - Provider: Automatic Discharge Provider) documented in this encounter Orders Medications Ordered That Pk ht Not Have Been Administered Count Last Ordered Date First Ordered Date senna (SENOKOT) tablet 17.2 mg 1 02/24/2025 temazepam (RESTORIL) capsule 15 mg 1 2024 traMADoL (ULTRAM) tablet 50 mg 1 02/22/2025 Admission Count Last Ordered Date First Orde red Date ADMIT TO INPATIENT 1 02/22/2025 Transfer Count Last Ordered Date First Orde red Date ED TO FLOOR BED REQUEST 1 02/22/2025 Discharge Count Last Ordered Date First Orde red Date DISCHARGE PATIENT 1 02/25/2025 documented in this encounter Additional Health Concerns Infection Onset Date Last Indicated Resolved Time Respiratory Rule-Out 02/22/2025 02/22/2025 025 2:25 PM EST COVID-19 Rule-Out 02/22/2025 02/22/2025 02/22/2025 2:25 PM EST documented as of this encounter Care Teams Shirring Tender Relationship Specialty Start Date End Date Deonte Carmona PA [address] [place] [id number] PCP - General Physician Clinical Data Management Manager 05/01/24 documented as of this encounter
[2025-02-28 11:46] VITALS: BP 150/80; PULSE 115; TEMP 36.1; O2SAT 96
--- NOTE | 2025-02-28 11:46 | A.OFFPC_ITS ---
Vital Signs 02/28/25 11:46 Height 4 ft 8 in BMI Reason not done Patient refused/unable BP 150/80 H Blood Pressure Location Lt brachial Position Sitting Pulse 115 H Pulse Source Pulse Oximeter Temp 96.9 F Temp Source Temporal Artery Scan Pulse Oximetry (%) 96 Oxygen Delivery Method Room Air Intake Visit Reasons: annual exam Intake Note: Patient is here today for a physical. Base Wad Operator Adjuster Required: No Rice Field Worker: Present Accompanied by: WEAVER NEEDLE LOOM Allergies trazodone Allergy (Unknown, Verified 02/28/25 12:02) hives zolmitriptan (Zomig) Allergy (Unknown, Verified 02/28/25 12:02) hives zolpidem (Ambien) Allergy (Unknown, Verified 02/28/25 12:02) hives Medication List - Last Reconciled 02/28/25 by Deonte Carmona PA-C acetaminophen ER 1,300 mg (2 x 650 mg) PO Q12H PRN 90 days [adult pull ups As directed] atorvastatin 40 mg PO DAILY [BARIATRIC COMMODE As directed] [BILATERAL LOWER EXTREMITY AFO As directed] bisacodyl 10 mg RI DAILY PRN znkmldlwhk-olqsktuthouzt-orbj 50-325-40 mg 1 tab PO Q6H PRN cefpodoxime 200 mg PO BID cephalexin 500 mg PO DAILY 90 days cholecalciferol (vitamin D3) (Vitamin D3) 50 mcg PO DAILY desmopressin 0.2 mg PO BID 90 days [disposable bedpads As directed] disposable gloves As directed disposable gloves As directed docusate sodium (Colace) 100 mg PO BID 30 days doxepin 75 mg PO BID [Drop arm bed side commode As directed] famotidine 40 mg PO BEDTIME ferrous sulfate 325 mg PO DAILY 90 days fluconazole 150 mg PO Q3D 2 doses Gait belt As directed Gait belt As directed ibuprofen 800 mg PO Q8H PRN 15 days incontinence pad, liner, disp As directed [incontinence wipes As directed] [incontinence wipes As directed] levonorgestrel (Mirena) intrauterine levothyroxine 75 mcg PO 6XW lidocaine 5% (Lidoderm) 1 patch topical DAILY meclizine 25 mg PO DAILY PRN 14 days methylcellulose (laxative) (Fiber Therapy (methylcellulose)) 500 mg PO TID miconazole nitrate 2% 1 appl topical BID miconazole nitrate 2% (Monistat 7) 1 appful vaginal BEDTIME 7 days mirabegron ER (Myrbetriq) 25 mg PO DAILY miscellaneous medical supply 1 ea miscellaneous BID 90 days miscellaneous medical supply 1 ea miscellaneous DAILY 99 days omeprazole 40 mg PO DAILY oxycodone 5 mg PO TID PRN 4 days prednisone 40 mg PO DAILY pregabalin 200 mg PO BID 30 days quetiapine 50 mg PO DAILY quetiapine 200 mg PO DAILY [reusable underpads 36x54 As directed] sodium,potassium,mag sulfates 17.5-3.13-1.6 gram (Suprep Bowel Prep Kit) DILUTE; drink full amount early evening before AND next morning at least 2 hr before procedure; follow w 960 mL water PO temazepam 15 mg PO BEDTIME 30 days tizanidine 4 mg PO BID 90 days tramadol 50 mg PO BID 30 days valacyclovir (Valtrex) 1,000 mg PO DAILY 90 days venlafaxine ER 150 mg PO DAILY 90 days vitamin B complex (B Complex-Vitamin B12 tablet) 1 tab PO DAILY walker need for regular walker walker As directed [WHEELCHAIR GEL CUSHION SEAT As directed] [wheelchair- manual As directed] Tobacco use date assessed: 02/28/25 Dental Screening Dental Screen Date: 11/05/24 HPI annual exam HPI Details Patient is a 49 year-old female here today for an annual physical . 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 Patient had has been started on prednisone and continues on 40 mg daily. Unfortunately she has noted weight gain and elevations in her blood pressure and heart rates. 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 She reports she will need surgery for biopsy in [place] in near future. ? .. ? 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 Patient currently gets 59 hours of WEAVER NEEDLE LOOM services as her cerebral palsy is advanced and has trouble with ambulation and doing ADLs at home. She reports she needs more WEAVER NEEDLE LOOM hours help her with her activities of daily living as she seemingly needs more help with transferring in and out of chair and going to the bathroom. She does admit she needs more WEAVER NEEDLE LOOM hours particularly at night. Patient currently uses tramadol and? tizanidine treatment her pains and spasticity secondary to cerebral palsy.? She reports this current regime does manage her pain well. ? ... ? .. ? Hypothyroidism : Is followed by endocrinology and had a recent increase in her levothyroxine to 75 mcg.? Most recent TSH stable2. ?Also patient does have diabetes insipidus to which she takes desmopressin and has been stable. ? .. ? Depression: Has a complex urological history including pyelonephritis requiring a nephrostomy tube in 2023. Patient does see a therapist in [facility], though has lost follow-up with her med provider and gets all of her mental health medications through her PCP. .. Recurrent UTI: Recently again seen at [facility] for urosepsis after being taken off of her antibiotics suppressive therapy. Will return back to using cephalexin 500 mg daily as suppressive therapy. Will refer to [facility] for a 2nd opinion on her recurrent UTIs .. Diabetes insipidus: She continues on desmopressin 0.2 mg twice a day Colon cancer screen: Willing to get do a colonoscopy. .. 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 [facility] Medical History (Updated 02/28/25 @ 12:48 by Deonte Carmona PA-C) Pyelonephritis Herpes simplex Depression Anxiety Diabetes insipidus Cerebral palsy Surgical History History of surgery on lower extremity Hx of appendectomy Family History Father No problems noted. Mother HTN (hypertension) Social History Household Members: None Housing: Apartment Alcohol intake: never Patient Tobacco Use Status: Never used Tobacco e-Cigarette/Vaping Use: Never Used Second Hand Smoke Exposure: No service: No Current occupational status: disabled Current occupational exposures/hazards: No Sexual orientation: Straight/Heterosexual Cognitive needs: Yes (wheel chair ) Hearing needs: No Vision needs: Yes Questionnaire Thrive Questionnaire Date Thrive assessed: 01/17/25 Within the past 12 months, did the food you bought not last and you didn't have the money to get more?: Sometimes True Within the past 12 months, did you worry whether your food would run out before you got money to buy more?: Sometimes True Do you have trouble paying for medicines?: No Do you have trouble getting transportation to medical appointments?: No Do you have trouble paying your heating and electricity bill?: No Do you have trouble taking care of your child, family member or friend?: No Do you have trouble with day-to-day activities such as bathing, preparing meals, shopping, managing finances, etc.?: Yes Are you currently unemployed and looking for a job?: No Are you interested in more education?: No Please select the resources that you would like help with: None Currently or been in a relationship where the following occur: No concerns reported THRIVE Score: 2 AUDIT C Alcohol Use Questionnaire (AUDIT-C) 1. How often do you have a drink containing alcohol?: Never Total Score: 0 ARMANDO-7 AMB Questionnaire ARMANDO-7 Date ARMANDO - 7 assessed: 11/05/24 Feeling nervous, anxious, or on edge: 0 = Not at all Not being able to stop or control worryin = Not at all Worrying too much about different things: 1 = Several days Trouble relaxin = Several days Being so restless that it is hard to sit still: 1 = Several days Becoming easily annoyed or irritable: 0 = Not at all Feeling afraid as if something awful might happen: 1 = Several days Total ARMANDO-7 score (0-4 normal; 5-9 mild; 10-14 moderate; 15-21 severe): 4 Source: Developed by Drs. Clayton Meneses, Isabel Ponce, Shailesh Bolanos and colleagues, with an educational josé manuel from [employer]. Review of Systems Const Denies body aches, Denies chills, Denies excessive sweating, Denies fatigue, Denies fever(s) and Denies headache(s) Eyes Denies blurry vision ENT Denies dysphagia, Denies vertigo, Denies dizziness, Denies headache(s), Denies hearing loss and Denies tinnitus Card Denies chest pain, Denies chest pain with activity, Denies syncope, Denies irregular heart rhythm and Denies dyspnea Resp Denies chest congestion, Denies cough, Denies hemoptysis, Denies dyspnea and Denies wheezing GI Denies abdominal pain, Denies melena, Denies hematochezia, Denies coffee ground emesis, Denies dysphagia, Denies diarrhea, Denies nausea and Denies vomiting Denies urinary frequency, Denies dysuria, Denies urinary hesitancy and Denies urinary urgency Musc Denies arthralgias, Denies limited range of motion, Denies muscle cramps and Denies muscle weakness Skin/Breast Denies rash and Denies skin ulcer Neuro Denies Abnormal speech present, Denies confusion, Denies vertigo, Denies dizziness, Denies syncope, Denies headache(s), Denies memory loss and Denies seizure-like activity Psych Denies anxiety, Denies confusion, Denies depression, Denies memory loss, Denies panic attacks and Denies paranoia Endo Denies excessive sweating, Denies fatigue, Denies flushing, Denies polydipsia and Denies polyuria Aller/Immun Denies wheezing Physical exam (Primary Care) Vital Signs: Last Vital Signs Temp 96.9 F 02/28/25 11:46 Pulse 115 H 02/28/25 11:46 BP 150/80 H 02/28/25 11:46 Pulse Ox 96 02/28/25 11:46 Oxygen Delivery Method Room Air 02/28/25 11:46 Tobacco/Smoking Status: Tobacco use Status Tobacco use date assessed 02/28/25 02/28/25 11:53 Patient Tobacco Use Status Never used Tobacco 02/28/25 11:53 e-Cigarette/Vaping Use Never Used 02/28/25 11:53 Thrive Assessment: Date of Thrive Assessment Date Thrive assessed 01/17/25 02/28/25 11:53 Currently or been in a relationship where the following occur: No concerns reported Const General: cooperative, comfortable, no acute distress, alert and awake; No confusion Orientation/consciousness: oriented to person, oriented to place, patient oriented x3 and No confusion HENMT Head: Yes normocephalic Ears: external ears normal and TM's normal bilaterally Face and sinus: No sinus tenderness Mouth: Normal oral and palatal mucosa present and tongue normal Teeth and gingiva: dentition normal and gingiva normal Throat: Yes posterior oropharynx normal, Yes tonsils normal and Yes uvula midline Eyes Conjunctivae: conjunctivae normal Sclerae: sclerae normal Pupils: Equal, round and reactive pupils present EOM: EOMs intact bilaterally Direct Ophthalmoscopy: No no photophobia Neck Neck: Yes no lymphadenopathy, No tender and Yes no JVD Thyroid: Thyroid normal Carotids: no bruits Chest Chest palpation & inspection: no tenderness Resp Effort & Inspection: normal respiratory effort, no audible wheezes, not labored and no stridor Auscultation: no crackles, no rales, no rhonchi and no wheezes Cardio Jugular venous distension: no JVD Rate: regular rate, not bradycardic and not tachycardic Rhythm: regular rhythm Bruits: no carotid bruits Peripheral pulses: Peripheral pulses 2+ throughout GI Inspection: Yes normal to inspection, No abdominal wall ecchymosis and No visible herniation Palpation (GI): Soft to palpation, nontender, no guarding, not rigid and No hepatosplenomegaly present Auscultation: normoactive bowel sounds General: Yes no CVA tenderness Back/Spine/Pelvis Back: no CVA tenderness and No back tenderness Cervical Spine: cervical ROM normal Thoracic/Lumbar Spine: thoracic and lumbar spine normal to inspection, straight leg raise negative bilaterally, No thoraco-lumbar ROM limited and No lumbar spinal tenderness Skin Lesions: no lesions Rashes: no rashes Wounds: no wounds Neuro General: oriented to person, oriented to place, patient oriented x3, CN's II-XI intact bilaterally and No confusion Cranial nerves: Yes Equal, round and reactive pupils present and Yes Normal accommodation reflex present Cognition (Neuro): normal cognition Speech: No Abnormal speech present Gait exam (Neuro): Normal gait present Motor exam (neuro): 5/5 motor strength present throughout Extrem Right upper extremity: full ROM; no cyanosis Left upper extremity: full ROM; no cyanosis Right lower extremity: no edema Left lower extremity: no edema Psych Appearance: grossly normal Mental Status: mental status grossly normal Affect: normal affect Attitude: cooperative Thought process: Normal thought process present Office Procedures Flu Questionnaire Does the patient have a severe egg allergy?: No Does the patient have severe life threatening allergies?: No Does the patient have a fever or illness today?: No Has the patient ever had Guillain-[place] Syndrome?: No Has the patient ever had any past reaction to a flu shot?: No Results AMB Hemoglobin A1c AMB Hemoglobin A1c 6.5 % Last Edit by LUCIA Mcgraw on 02/28/25 12:02 Immunizations Fluarix [id number] (PF) 45 mcg (15 mcg x 3)/0.5 mL IM syringe Performing Provider: Deonte Carmona PA-C [facility] Administered by: Christina Gomez CMA on 02/28/25 12:37 Dose Route Admin Location Dispensed Lot Number Expiration Date NDC [employer] [place] [employer] 0.5 mL IM Left Deltoid 0.5 mL [id number] 09/27/25 [id number] [employer] VIS Given Date VIS Provided VIS Publication Date 02/28/25 Single Vaccine 24 Eligibility Eligibility Date Funding Source Not [facility] Eligible 02/28/25 Private Results Reviewed Results Reviewed: Laboratory Last Values Hgb A1c (Clinic) 6.5 % (4.0-6.0) H 02/28/25 11:44 Coding Level of Care Code Est Pt Prev Care 40-64y(70157) Diagnoses Annual physical exam Z00.00 Cerebral palsy, unspecified type G80.9 Cerebral palsy type: unspecified type Recurrent UTI N39.0 Mixed hyperlipidemia E78.2 Hyperlipidemia type: mixed hyperlipidemia Acquired hypothyroidism E03.9 Hypothyroidism type: acquired Diabetes insipidus E23.2 Brain tumor D49.6 Type 2 diabetes mellitus without complication, without long-term current use of insulin E11.9 Diabetes mellitus complication status: without complication Diabetes mellitus dedicated 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 pap done w difficulty as well as sti screens. mirena string briefly glimpsed in cervix. Code(s): G80.9 - Cerebral palsy, unspecified Category: Medical Qualifiers: Cerebral palsy type: unspecified type Qualified Code(s): G80.9 - Cerebral palsy, unspecified Plan: Patient is wheelchair dependent. She does have WEAVER NEEDLE LOOM services on a daily basis. Patient interested in trying an alternative muscle relaxer due to her continued muscle spasms. (3) Recurrent UTI: Code(s): N39.0 - Urinary tract infection, site not specified Category: Medical Plan: Patient has been hospitalized with urosepsis 3 times now in the last year. Was previously taken off of her long-term antibiotic but unfortunately had another UTI episode. Will continue her on cephalexin 500 mg daily and get a 2nd opinion through Urology due to her recurrent UTIs (4) HLD (hyperlipidemia): Code(s): E78.5 - Hyperlipidemia, unspecified Category: Medical Qualifiers: Hyperlipidemia type: mixed hyperlipidemia Qualified Code(s): E78.2 - Mixed hyperlipidemia Plan: Patient continues with the use of statin therapy. Goal LDL to remain below 130 (5) Hypothyroid: Code(s): E03.9 - Hypothyroidism, unspecified Category: Medical Qualifiers: Hypothyroidism type: acquired Qualified Code(s): E03.9 - Hypothyroidism, unspecified Plan: Most recent TSH has been stable. She continues with levothyroxine 75 mcg daily. (6) Diabetes insipidus: Code(s): E23.2 - Diabetes insipidus Category: Medical Plan: The plan for managing the patient's diabetes insipidus includes increasing the dose of desmopressin to 0.2 mg twice daily to help control her symptoms of frequent urination and thirst. Further evaluation by an stoker installer is recommended to assess the impact of the tumor on the pituitary gland and consider alternative treatments such as a nasal spray formulation. (7) Brain tumor: Code(s): D49.6 - Neoplasm of unspecified behavior of brain Category: Medical Plan: As per HPI patient has a brain mass that he has biopsy. Awaiting to see [place] specialist for biopsy (8) Type 2 diabetes mellitus: Code(s): E11.9 - Type 2 diabetes mellitus without complications Category: Medical Qualifiers: Diabetes mellitus complication status: without complication Diabetes mellitus usp insulin use: without dedicated intermodal truck driver use Qualified Code(s): E11.9 - Type 2 diabetes mellitus without complications Plan: Patient's A1c today at 6.5, has been on 40 mg prednisone for a few months now due to a brain tumor that was found. She is due to have the brain biopsy done in [place] though was working with the insurance to have this covered. Orders: Orders AMB Hemoglobin A1c Today E23.2 - Diabetes insipidus Influenza [id number] Immunization Today Z23 - Encounter for immunization Referrals Urology Referral N39.0 - Urinary tract infection, site not specified Gastroenterology Referral Z12.11 - Encounter for screening for malignant neoplasm of colon Medications: New orphenadrine citrate ER 100 mg PO BID 14 tabs 0RF 7 days G80.9 - Cerebral p alsy, unspecified Refilled pregabalin 200 mg PO BID 60 caps 4RF 30 days G80.9 - Cerebral palsy, unspecified
--- OUTSIDE RECORDS SUMMARY | 2025-02-28 15:05 | XMS_ITS | Clinical Summary ---
Author Organization [facility] Address [address] [place] [address] Phone Care Team Providers Care Legal Records Manager Name Role Phone Deonte Carmona Primary Care Provider Allergies Active Allergy Reactions Criticality Noted Date Comments Zolpidem Unknown 05/01/2024 Trazodone Unknown,Nausea And Vomiting 07/22/19 19 Zolmitriptan Nausea And Vomiting 07/21/2018 Medications atorvastatin (LIPITOR) 40 mg tablet Take 1 tablet (40 mg total) by mouth 1 (one) time each day. Active doxepin (SINEquan) 75 mg capsule Take 2 capsules (150 mg total) by mouth at bedtime. 6 Active famotidine (PEPCID) 40 mg tablet Take 1 tablet (40 mg total) by mouth at bedtime. Active Myrbetriq 25 mg 24 hr tablet Take 1 tablet (25 mg total) by mouth 1 (one) time each day. Active omeprazole (PriLOSEC) [address] capsule Take 1 capsule (40 mg total) by mouth 1 (one) time each day. Active pregabalin (LYRICA) 200 mg capsule Take 1 capsule (200 mg total) by mouth at bedtime. Active QUEtiapine (SEROquel) 50 mg tablet Take [...] times a day if needed (breakthrough pain). 6 Active valACYclovir (VALTREX) 1 gram tablet Take 1 tablet (1,000 mg total) by mouth 1 (one) time each day. 4 Active venlafaxine XR (EFFEXOR-XR) 150 mg 24 hr capsule Take 1 capsule (150 mg total) by mouth at bedtime. 6 Active naloxone (NARCAN) 4 mg/0.1 mL nasal spray Administer 1 each (4 mg total) into affected nostril(s) if needed for opioid reversal. Give 4 mg (1 spray) into one nostril. May repeat every 2-3 minutes if needed, alternating nostrils, until medical assistance becomes available. 2 each 5 01/10/20 26 Active butalbital-jordan taminophen-caf feine (FIORICET, ESGIC) 50-325-40 mg per tablet Take 1 tablet by mouth every 6 (six) hours if needed. for pain Active cephalexin (KEFLEX) 500 mg capsule Take 1 capsule (500 mg total) by mouth 1 (one) time each day. Active cholecalcifero l (VITAMIN D-3) 50 mcg (2,000 unit) capsule Take 1 capsule (2,000 Units total) by mouth 1 (one) time each day. Active docusate sodium (COLACE) 100 mg capsule Take 1 capsule (100 mg total) by mouth 2 (two) times a day. Active doxycycline hyclate (VIBRA-TABS) 20 mg tablet Take 1 tablet (20 mg total) by mouth every 12 (twelve) hours. 5 03/01/20 25 Active levothyroxine (SYNTHROID, LEVOTHROID) 75 mcg tablet Take 1 tablet (75 mcg total) by mouth 1 (one) time each day before breakfast. Active predniSONE (DELTASONE) 20 mg tablet Take 2 tablets (40 mg total) by mouth 1 (one) time each day. 5 Active temazepam (RESTORIL) 15 mg capsule Take 1 capsule (15 mg total) by mouth 1 (one) time each day. Active tobramycin-dex AMETHasone (TOBRADEX) ophthalmic suspension Administer 1 drop into both eyes every 4 (four) hours while awake. Active desmopressin (DDAVP) 0.2 mg tablet Take 1 tablet (0.2 mg total) by mouth 2 (two) times a day. Active cefpodoxime (VANTIN) 200 mg tablet Take 1 tablet (200 mg total) by mouth 2 (two) times a day for 7 days. 14 each 03/04/20 Active desmopressin (DDAVP) 0.1 mg tablet Take 1 tablet (0.1 mg total) by mouth 2 (two) times a day. 02/23/20 Discontin ued(Alter julius therapy) ferrous sulfate 325 mg (65 mg iron) EC tablet Take 1 tablet (325 mg total) by mouth 1 (one) time each day. 02/23/20 Discontin ued(Alter julius therapy) zaleplon (SONATA) 5 mg capsule Take 1 capsule (5 mg total) by mouth at bedtime. 9 02/23/20 Discontin ued(Thera py completed ) Active Problems Problem Noted Date Diagnosed Date HTN (hypertension) 09/21/2024 Depression 09/21/2024 Pyelonephritis 05/05/2024 Bacteremia 05/05/2024 Acute cystitis without hematuria 05/01/2024 Resolved Problems Problem Noted Date Diagnosed Date Resolved Date Sepsis, due to unspecified o rganism, unspecified whether acute organ dysfunction present ([facility] V24, [facility] V28) 02/22/202502/25 Encounters Date Type Department Care Team Description 02/22/2025 12:15 PM EST - 02/25/2025 5:11 PM EST Hospital Encounter [facility] [address] [place] [id number] Petey Bhakta MD Bukalo, Nermina, MD Kokosadze, Estate, MD Sepsis, due to unspecified organism, unspecified whether acute organ dysfunction present ([facility] V24, [facility] V28) (Primary Dx); Acute cystitis without hematuria Discharge Disposition: Home-Health Care [facility] 01/11/2025 Results Follow-Up [facility] Emergency [address] [place] [phone] Clare Chahal RN 01/09/2025 1:11 PM EDT - 01/09/2025 9:14 PM EDT Emergency [facility] Emergency [address] [place] [phone] Arcenio Platt MD Mersier, Jasmine, DO Chronic low back pain without sciatica, unspecified back pain laterality (Primary Dx) Discharge Disposition: Home or Self Care 12/13/2024 4:08 PM EDT - 12/13/2024 11:36 PM EDT Emergency [facility] Emergency [address] [place] [phone] Toro Johnson MD Nonintractable headache, unspecified chronicity pattern, unspecified headache type (Primary Dx); Orbital myositis of left side; Recurrent UTI Discharge Disposition: Home or Self Care from Last 3 Months Surgical History Surgery Date Site/Laterality Comments APPENDECTOMY OTHER SURGICAL HISTORY Transsphenoidal hypophysectomy OTHER SURGICAL HISTORY Multiple surgeries at [facility] related to cerebral palsy Medical History Medical History Date Comments Diabetes mellitus ([facility] V24, [facility] V28) Hypertension Depression Cerebral palsy ([facility] V24, [facility] V28) Diabetes insipidus ([facility] V24) Hypothyroidism Hyperlipidemia Migraines Anxiety Chronic anemia GERD (gastroesophageal reflux disease) Insomnia Family History Medical History Relation Name Comments Thyroid disease Other Relation Name Status Comments Other Social History Tobacco Use Types Packs/Day Years [...] Mass Index 52.19 02/22/2025 5:35 PM EST Plan of Treatment Health Maintenance [...] history exists Hypertension/CHF/CAD Annual BMP Blood Test 02/24/2026 02/24/2025, 02/23/2025, 02/22/2025, Additional history exists DTaP,Tdap,and Td Vaccines (2 [...] AUTO DIFFERENTIAL Routine 02/23/2025 6:07 AM EST LACTATE Routine 02/23/2025 6:07 AM EST COMPREHENSIVE METABOLIC PANEL Routine 02/23/2025 6:07 AM EST CBC AND DIFFERENTIAL Routine 02/23/2025 6:07 AM EST BASIC METABOLIC PANEL STAT 02/22/2025 8:14 PM EST LACTATE STAT 02/22/2025 8:14 PM EST ECG 12-LEAD Routine 02/22/2025 5:47 PM EST LT BLUE - NA CITRATE Routine 02/22/2025 5:11 PM EST EXTRA TUBES Routine 02/22/2025 5:11 PM EST LACTATE STAT 02/22/2025 5:11 PM EST TROPONIN I HIGH SENSITIVITY STAT 02/22/2025 5:11 PM EST VARELA URINE [...] ECG 12-LEAD STAT 02/22/2025 1:26 PM EST THYROID STIMULATING HORMONE WITH REFLEX TO FREE T4 AND FREE T3 STAT 02/22/2025 1:15 PM EST CBC WITH AUTO DIFFERENTIAL STAT 02/22/2025 1:15 PM EST HCG, SERUM, QUALITATIVE STAT 02/23/20 1:15 PM EST ACTIVATED PARTIAL THROMBOPLASTIN TIME STAT 02/22/2025 1:15 PM EST PROTHROMBIN TIME WITH INR STAT 02/22/2025 1:15 PM EST CBC AND DIFFERENTIAL STAT 02/22/2025 1:15 PM EST TROPONIN I HIGH SENSITIVITY STAT 02/22/2025 1:15 PM EST MAGNESIUM STAT 02/22/2025 1:15 PM EST LIPASE STAT 02/22/2025 1:15 PM EST LACTATE STAT 02/22/2025 1:15 PM EST COMPREHENSIVE METABOLIC PANEL STAT 02/22/2025 1:15 PM EST CULTURE BLOOD STAT 02/22/2025 1:15 PM EST CULTURE BLOOD STAT 02/22/2025 1:15 PM EST [id number], RSV, FLU A AND B QUALITATIVE RT-PCR, INTERNAL LAB STAT 02/22/2025 1:15 PM EST XR CHEST 1 VIEW STAT 02/22/2025 12:[address] LUMBAR SPINE WO CONTRAST STAT 01/09/2025 3:[address] THORACIC SPINE WO CONTRAST STAT 01/09/2025 3:26 PM EDT CBC WITH AUTO DIFFERENTIAL STAT 01/09/2025 3:18 PM EDT CBC AND DIFFERENTIAL STAT 01/09/2025 3:18 PM EDT COMPREHENSIVE METABOLIC PANEL STAT 01/09/2025 3:18 PM EDT VARELA URINE CULTURE TUBE STAT 01/10/20 2:50 PM EDT URINALYSIS WITH REFLEX MICROSCOPIC [...] EDT from Last 3 Months Results * ECG-Annotated (02/25/2025) us Provider Onbase MD ECG ORDERABLES Final Result * (ABNORMAL) CBC auto differential (02/24/2025 5:55 AM EST) Only the most recent of5 resultswithin the time period is included. WBC 8.3 4.8 - 10.8 K/mcL LAB [...] K/mcL LAB HEMETOLOGY METHOD 02/24/2025 7:11 AM EST [facility] Eosinophils Absolute 0.03 0.00 - 0.50 K/[facility] LAB HEMETOLOGY METHOD 02/24/2025 7:11 AM [facility] Basophils Absolute 0.03 0.00 - 0.20 K/[facility] LAB HEMETOLOGY METHOD 02/24/2025 7:11 AM EST [facility] Immature Granulocytes Absolute 0.13(H) 0.00 - 0.03 K/[facility] LAB HEMETOLOGY METHOD 02/24/2025 7:11 AM [facility] Blood Venous blood specimen / Unknown Venipuncture / Unknown 02/24/2025 5:55 AM EST 02/24/2025 6:16 AM EST Estreba Farah MD LAB BLOOD ORDERABLES Final R esult [facility] [address] [place] [address], * (ABNORMAL) Basic metabolic panel (02/24/2025 5:55 AM EST) Only the most recent of2 resultswithin the time period is included. Sodium 130(L) 133 - 145 mmol/L 02/24/2025 [...] 70 - 100 mg/dL 02/24/2025 7:23 AM EST [facility] BUN 17 5 - 25 mg/dL 02/24/2025 7:23 AM [facility] Creatinine 0.69 0.50 - 1.10 mg/dL 02/24/2025 7:23 AM [facility] eGFR 105 >=60 mL/min/1. 73m2 02/24/2025 7:23 AM [facility] Comment:Calculation based on the Chronic Kidney Disease Epidemiology Collaboration (CKD-EPI) equation refit without adjustment for race. BUN/Creatinine Ratio 24.6 02/24/2025 7:23 AM [facility] Calcium 8.7 8.5 - 10.5 mg/dL 02/24/2025 7:23 AM [facility] Blood Venous blood specimen / Unknown Venipuncture / Unknown 02/24/2025 5:55 AM EST 02/24/2025 6:17 AM EST us Estate Sofi MACIAS LAB BLOOD ORDERABLES Final R esult [facility] [address] [place] [address], * [place] Abdomen Limited (02/23/2025 9:31 AM [...] Signed Date: 02/23/2025 09:56 ET Workstation ID: [id number] Transcribed By: Self Edit Transcribed Date: 02/23/2025 [...] Signed Date: 02/23/2025 09:56 ET Workstation ID: [id number] Transcribed By: Self Edit Transcribed Date: 02/23/2025 09:52 ET Emani MARINELLI [facility] US PROCEDURES Final Result * (ABNORMAL) Lactate (02/23/2025 6:07 AM EST) Only the most recent of4 resultswithin the time period is included. Lactate 2.2(H) 0.4 - 2.0 mmol/L 02/23/2025 6:49 AM [facility] Blood Venous blood specimen / Unknown Venipuncture / Unknown 02/23/2025 6:07 AM EST 02/23/2025 6:18 AM EST us Emani MARINELLI LAB BLOOD ORDERABLES Final Resu lt [facility] [address] [place] [address], [place] [phone] * (ABNORMAL) Comprehensive metabolic panel (02/23/2025 6:07 AM EST) Only the most recent of4 resultswithin the time period is included. Sodium 138 133 - 145 mmol/L 02/23/2025 [...] MARINELLI LAB BLOOD ORDERABLES Final Resu lt [facility] [address] [place] [address], * ECG 12 lead (02/22/2025 5:47 PM EST) Only the most recent of2 resultswithin the time period is included. Ventricular Rate ECG 105 BPM GEMUSE Atrial Rate 105 BPM GEMUSE P-R Interval 128 ms GEMUSE QRS Duration 80 ms GEMUSE Q-T Interval 334 ms GEMUSE QTc 441 ms GEMUSE P Wave [place] 56 degrees GEMUSE R [place] 25 degrees GEMUSE T [place] 11 degrees GEMUSE ECG Interpretation Sinus tachycardia Nonspecific T wave abnormality When compared with ECG of 22-FEB-2025 13:26, No significant change was found Confirmed by SANDOR MISTRY ([id number]) on 02/24/2025 11:40:03 PM GEMUSE 02/22/2025 5:47 PM EST 02/24/2025 11:40 PM EST Emani MARINELLI ECG ORDERABLES Final Result GEMUSE * Troponin I high sensitivity (02/22/2025 5:11 PM EST) Only the most recent of2 resultswithin the time period is included. [facility] High Sensitivity Troponin I 6 <=34 ng/L 02/22/2025 5:57 PM EST [facility] Blood Venous blood specimen / Unknown Venipuncture / Unknown 02/22/2025 5:11 PM EST 02/22/2025 5:18 PM EST Emani MARINELLI LAB BLOOD ORDERABLES Final Resu lt Performing Organization Address [facility] Co de Phone Number [facility] [address] [place] [address], [place] [phone] * Light blue tube (02/22/2025 5:11 PM EST) [facility] Extra Tube Hold for add-ons. 02/22/2025 7:01 PM EST [facility] Comment:Auto resulted. Blood Venous blood specimen / Unknown 02/22/2025 5:11 PM EST 02/22/2025 5:19 PM EST Petey Bhakta MD LAB BLOOD ORDERABLES Final Resul t Performing Organization Address City/[facility]/ZIP Co de Phone Number [facility] [address] [place] [address], [place] [phone] * Varela urine culture tube (02/22/2025 4:05 PM EST) Only the most recent of2 resultswithin the time period is included. [facility] Extra Tube Hold for add-ons. 02/22/2025 6:01 PM [facility] Comment:Auto resulted. Urine Urine specimen obtained by clean catch procedure / Unknown Non-blood Collection / Unknown 02/22/2025 4:05 PM EST 02/22/2025 4:49 PM EST us Emani MARINELLI LAB URINE ORDERABLES Final Resu lt [facility] [address] [place] [address], [place] [phone] * (ABNORMAL) Urinalysis with reflex microscopic (02/22/2025 3:55 PM EST) Only the most recent of2 resultswithin the time period is included. [facility] Specific [place] Urine 1.020 1.003 - 1.030 LAB URINALYSIS [...] 0 - 4 /HPF 02/22/2025 4:46 PM [facility] WBC, Urine 10(H) 0 - 4 /HPF 02/22/2025 4:46 PM [facility] Squamous Epithelial, Urine 10 0 - 60 /LPF 02/22/2025 4:46 PM [facility] Bacteria, Urine Negative Negative /HPF 02/22/2025 4:46 PM [facility] Hyaline Casts, Urine 0 0 - 3 /LPF 02/22/2025 4:46 PM [facility] Urine Urine specimen obtained by clean catch procedure / Unknown Non-blood Collection / Unknown 02/22/2025 3:55 PM EST 02/22/2025 4:06 PM EST us Petey Bhakta MD LAB URINE ORDERABLES Final Resul t [facility] [address] [place] [address], * CT Abdomen Pelvis w Contrast (02/22/2025 [...] Signed Date: 02/22/2025 16:01 ET Workstation ID: [id number] Transcribed By: Self Edit Transcribed Date: 02/22/2025 [...] Multilevel degenerative changes of the spine. The [id number] and facet joints are fused. IMPRESSION: 1. Moderate proximal colonic fecal loading suggesting constipation. 2. Multifocal bilateral renal cortical scarring and multiple bilateralnonobstructing renal calculi. No ureteral calculus. -------- FINAL REPORT -------- Dictated By: Stefan Ambriz Dictated Date: 02/22/2025 15:54 ET Assigned Physician: Stefan Ambriz Reviewed and Electronically Signed By: Stefan Ambriz Signed Date: 02/22/2025 16:01 ET Workstation ID: [id number] Transcribed By: Self Edit Transcribed Date: 02/22/2025 15:54 ET Petey Bhakta MD [facility] CT PROCEDURES Final Result * (ABNORMAL) POC Glucose Manually Resulted (02/22/2025 2:13 PM EST) Glucose POC 161(A) 70 - 110 mg/dL Blood Capillary blood specimen / Unknown 02/22/2025 2:13 PM EST us Petey Bhakta MD POINT OF CARE TEST ENTER/EDIT OR DERABLES Edited Result - Final * (ABNORMAL) POCT Glucose, blood (02/22/2025 2:08 PM EST) Pathologist [facility] Glucose POCT 161(H) 70 - 100 mg/dL 02/22/2025 2:08 PM EST [facility] Blood Capillary blood specimen / Unknown 02/22/2025 2:08 PM EST 02/22/2025 2:09 PM EST us Petey Bhakta MD LAB POINT OF CARE TE ST DOCKED DEVICE UNSOLICITED RESULTS Final Result Performing Organization Address City/[facility]/ZIP Co de Phone Number [facility] [address] [place] [address], [place] [phone] * [id number], RSV, Influenza A and B qualitative RT-PCR (02/22/2025 1:15 PM EST) [facility] Influenza A PCR Not Detected Not Detected LAB MICROBIOLOGY METHOD 02/22/2025 2:25 PM EST [facility] Influenza B PCR Not Detected Not Detected LAB MICROBIOLOGY METHOD 02/22/2025 2:25 PM EST [facility] RSV PCR Not Detected Not Detected LAB MICROBIOLOGY METHOD 02/22/2025 2:25 PM EST [facility] SARS COV-2 Not Detected Not Detected LAB MICROBIOLOGY METHOD 02/22/2025 2:25 PM EST [facility] Swab Nasopharyngeal structure / Unknown Non-blood Collection / Unknown 02/22/2025 1:15 PM EST 02/22/2025 1:32 PM EST us Petey Bhakta MD LAB MICROBIOLOGY - GENERAL ORDER MARICARMEN Final Result [facility] [address] [place] [address], [place] [phone] * Thyroid stimulating hormone with reflex to free t4 and free t3 (TSH Reflex) (02/22/2025 1:15 PM EST) TSH 0.99 0.40 - 4.00 mcIU/mL 02/22/2025 2:01 PM EST [facility] Blood Venous blood specimen / Unknown Venipuncture / Unknown 02/22/2025 1:15 PM EST 02/22/2025 1:32 PM EST us Petey Bhakta MD LAB BLOOD ORDERABLES Final Resul t Performing Organization Address City/[facility]/ZIP Co de Phone Number [facility] [address] [place] [address], [place] [phone] * Blood Culture, Peripheral #2 (02/22/2025 1:15 PM EST) Only the most recent of2 resultswithin the time period is included. Pathologist [facility] Culture, Blood No growth at 5 days 02/27/2025 2:01 PM EST [facility] Blood Venous blood specimen / Unknown Venipuncture / Unknown 02/22/2025 1:15 PM EST 02/22/2025 1:32 PM EST us Petey Bhakta MD LAB MICROBIOLOGY - GENERAL ORDER MARICARMEN Final Result [facility] [address] [place] [address], [place] [phone] * APTT (02/22/2025 1:15 PM EST) aPTT 24.3 24.1 - 39.3 sec LAB COAGULATION METHOD 02/22/2025 1:51 PM EST [facility] Blood Venous blood specimen / Unknown Venipuncture / Unknown 02/22/2025 1:15 PM EST 02/22/2025 1:32 PM EST us Petey Bhakta MD LAB BLOOD ORDERABLES Final Resul t [facility] [address] [place] [address], [place] [phone] * (ABNORMAL) Protime-INR (02/22/2025 1:15 PM EST) [facility] Protime 9.9(L) 10.6 - 13.9 sec LAB COAGULATION METHOD 02/22/2025 1:51 PM EST [facility] INR 0.8 LAB COAGULATION METHOD 02/22/2025 1:51 PM EST [facility] Blood Venous blood specimen / Unknown Venipuncture / Unknown 02/22/2025 1:15 PM EST 02/22/2025 1:32 PM EST us Petey Bhakta MD LAB BLOOD ORDERABLES Final Resul t Performing Organization Address [facility]/ZIP Co de Phone Number [facility] [address] [place] [address], [place] [phone] * hCG Qualitative (02/22/2025 1:15 PM EST) [facility] hCG Qual Negative Negative 02/22/2025 1:58 PM EST [facility] Blood Venous blood specimen / Unknown Venipuncture / Unknown 02/22/2025 1:15 PM EST 02/22/2025 1:32 PM EST us Petey Bhakta MD LAB BLOOD ORDERABLES Final Resul t Performing Organization Address City/[facility]/ZIP Co de Phone Number [facility] [address] [place] [address], [place] [phone] * (ABNORMAL) Magnesium (02/22/2025 1:15 PM EST) [facility] Magnesium 1.8(L) 1.9 - 2.6 mg/dL 02/22/2025 2:02 PM EST [facility] Blood Venous blood specimen / Unknown Venipuncture / Unknown 02/22/2025 1:15 PM EST 02/22/2025 1:32 PM EST us Petey Bhakta MD LAB BLOOD ORDERABLES Final Resul t Performing Organization Address [facility]/ZIP Co de Phone Number [facility] [address] [place] [address], [place] [phone] * Lipase (02/22/2025 1:15 PM EST) Lipase 39 12 - 53 unit/L 02/22/2025 2:02 PM EST [facility] Blood Venous blood specimen / Unknown Venipuncture / Unknown 02/22/2025 1:15 PM EST 02/22/2025 1:32 PM EST us Petey Bhakta MD LAB BLOOD ORDERABLES Final Resul t Performing Organization Address [facility] de Phone Number [facility] [address] [place] [address], [place] [phone] * XR Chest 1 View (02/22/2025 12:48 PM EST) Anatomical Region Laterality Modality Body Radiographic Aniyah ging 02/22/2025 12:5 3 PM EST Impressions 02/22/2025 12:56 PM EST No acute findings. -------- FINAL REPORT -------- Dictated By: Stefan Ambriz Dictated Date: 02/22/2025 12:53 ET Assigned Physician: Stefan Ambriz Reviewed and Electronically Signed By: Stefan Ambriz Signed Date: 02/22/2025 12:56 ET Workstation ID: [id number] Transcribed By: Self Edit Transcribed Date: 02/22/2025 [...] Signed Date: 02/22/2025 12:56 ET Workstation ID: [id number] Transcribed By: Self Edit Transcribed Date: 02/22/2025 12:53 ET Petey Bhakta MD IMG XR PROCEDURES Final Result * CT Lumbar Spine wo Contrast (01/09/2025 [...] Signed Date: 01/09/2025 16:16 ET Workstation ID: [id number] Transcribed By: Self Edit Transcribed Date: 01/09/2025 16:11 ET Narrative 01/09/2025 4:16 PM EDT INDICATION: Back pain TECHNIQUE: Noncontrast CT scan of the lumbar spine was obtained. Scanner: [employer] LightSpeed 64 slice VCT Dose reduction technique: [...] of the lumbar spine was obtained. Scanner: [email or web address] 64 slice VCT Dose reduction technique: ASIR [...] Signed Date: 01/09/2025 16:16 ET Workstation ID: [id number] Transcribed By: Self Edit Transcribed Date: 01/09/2025 [...] Signed Date: 01/09/2025 16:11 ET Workstation ID: [id number] Transcribed By: Self Edit Transcribed Date: 01/09/2025 15:58 ET Narrative 01/09/2025 4:11 PM EDT INDICATION: Back pain TECHNIQUE: Noncontrast CT scan of the thoracic spine was obtained. Scanner: [email or web address] 64 slice VCT Dose reduction technique: ASIR [...] of the thoracic spine was obtained. Scanner: [email or web address] 64 slice VCT Dose reduction technique: ASIR [...] Signed Date: 01/09/2025 16:11 ET Workstation ID: [id number] Transcribed By: Self Edit Transcribed Date: 01/09/2025 15:58 ET Arcenio Platt MD IM CT PROCEDURES Final Result * (ABNORMAL) Urinalysis with reflex microscopic and culture (01/09/2025 2:50 PM EDT) Pathologist [facility] Specific [place] Urine 1.013 1.003 - 1.030 LAB URINALYSIS - AUTOMATED METHOD 01/09/2025 3:32 PM EDT [facility] pH, Urine 6.5 5.0 - 8.0 pH LAB URINALYSIS - AUTOMATED METHOD 01/09/2025 3:32 PM EDT [facility] Leukocytes, Urine Large(A) Negative LAB URINALYSIS - AUTOMATED METHOD 01/09/2025 3:32 PM EDT [facility] Nitrite, Urine Negative Negative LAB URINALYSIS - AUTOMATED METHOD 01/09/2025 3:32 PM [facility] Protein, Urine Negative <=Trace mg/dL LAB URINALYSIS - AUTOMATED METHOD 01/09/2025 3:32 PM [facility] Glucose, Urine Negative Negative mg/dL LAB URINALYSIS - AUTOMATED METHOD 01/09/2025 3:32 PM [facility] Ketones, Urine Negative Negative mg/dL LAB URINALYSIS - AUTOMATED METHOD 01/09/2025 3:32 PM [facility] Urobilinogen, Urine 0.2 0.2 - 1.0 mg/dL LAB URINALYSIS - AUTOMATED METHOD 01/09/2025 3:32 PM [facility] Bilirubin, Urine Negative Negative LAB URINALYSIS - AUTOMATED METHOD 01/09/2025 3:32 PM [facility] Blood, Urine Trace(A) Negative LAB URINALYSIS - AUTOMATED METHOD 01/09/2025 3:32 PM [facility] RBC, Urine 3.5 0 - 4 /HPF LAB URINALYSIS - AUTOMATED METHOD 01/09/2025 3:32 PM [facility] WBC, Urine 69.4(H) 0 - 4 /HPF LAB URINALYSIS - AUTOMATED METHOD 01/09/2025 3:32 PM [facility] Squamous Epithelial, Urine 31 0 - 60 /LPF LAB URINALYSIS - AUTOMATED METHOD 01/09/2025 3:32 PM [facility] Bacteria, Urine Many(A) Negative /HPF LAB URINALYSIS - AUTOMATED METHOD 01/09/2025 3:32 PM [facility] Hyaline Casts, Urine 0.8 0 - 3 /LP[facility] LAB URINALYSIS - AUTOMATED METHOD 01/09/2025 3:32 PM [facility] Urine Urine specimen obtained by clean catch procedure / Unknown Non-blood Collection / Unknown 01/09/2025 2:50 PM EDT 01/09/2025 3:24 PM EDT us Arcenio Platt MD LAB URINE ORDERABLES Final Res ult [facility] [address] [place] [address], * (ABNORMAL) Culture urine (01/09/2025 2:50 PM EDT) Culture, Urine >=100,000 CFU/mL Klebsiella pneumoniae ssp pneumoniae(A) NATALIA 01/11/2025 8:27 AM EDT [facility] Comment: This is an [...] MICROBIOLOGY - GENERAL ORD ERABLES Final Result [facility] [address] [place] [address], [place] [phone] from Last 3 Months Insurance [facility] MEDICARE Member Subscriber Plan / Payer (Ef fective 2017-Present) Name:WALE DURANT Relation to Subscriber:Self Name:Wale Durant Payer ID:[id number] Group ID:[id number] Type:Not on file Address: [place] [address] [place] [id number] Advance Directives Documents on File Type Date Recorded Patient Trim Carpenter Expl anation Health Care Decision (hx) 01/15/2023 [...] AD BRAR DIRECTIVE * Full Code - Confirmed (Latest Code Status on File) Date Activated Date Inactivated Comments 02/22/2025 4:37 PM 02/25/2025 7:16 PM This code status was ascertained in the following way: Code status discussion: discussion with patient To update the patient's code status, place a code status order. Do not modify or discontinue any currently active code status orders. * Full Code - Default Date Activated Date Inactivated Comments 05/01/2024 10:47 PM 05/05/2024 9:29 PM This is order is used when code status has not been discussed with the patient, or code status is otherwise unknown/unconfirmed To update the patient's code status, place a code status order. Do not modify or discontinue any currently active code status orders. Care Teams Legal Records Manager Relationship Specialty Start Date End Date Deonte Carmona PA [address] [place] [phone] PCP - General Physician Thermal Surfacing Machine Operator 05/01/24
--- OUTSIDE RECORDS SUMMARY | 2025-02-28 15:05 | XMS_ITS | Encounter Summary ---
Author Organization [facility] Address [address] [facility] [address] [place] [phone] Phone Care Team Providers Care Sports Physician Name Role Phone Carlos Hunter MD Primary Care Provider [phone] Pcp, Unknown Primary Care Provider UnavailDeonte Fitzgerald Primary Care Provider + Pcp, Unknown Unavailable Unavailable Yajaira Harley MD Unavailable [phone] Toro Miller MD Unavailable [phone] Encounter Details Date Type Department Care Team (Latest Contact Info) Description 07/20/2019 Transcribe Orders [facility] Specimen Processing [address] [place] [address] Bernice Bustamante MD [address] [place], [place] [id number] [email or web address] Suspected Covid-19 Virus Infection (Primary Dx) Social [...] 5:14 PM EDT) Specimen Source NASOPHARYNGEAL SWAB (RATE EXAMINER) [facility] Comment: (NOTE) called to Nicole Meehan at [facility] COVID Testing Status Sent to [facility] [place] Micro Lab [facility] Other 07/20/2019 5:14 PM EDT 07/20/2019 5:23 PM EDT Bernice Bustamante MD LAB GENERAL ORDERABLES Edited Result - Final [facility] [address] [place] [address] documented in this encounter Visit Diagnoses Diagnosis [...] documented as of this encounter Care Teams Sports Physician Relationship Specialty Start Date End Date Carlos Hunter MD [address] [place] [address], [address] [place] [address] PCP - General Internal Medicine 07/02/18 12/05/21 Pcp, Unknown PCP - General 12/06/21 01/20/25 Deonte aCrmona PA [address] [place] [address] PCP - General Physician Motor Coach Chauffeur 01/21/25 Pcp, Unknown 01/21/25 Yajaira Harley MD [address] [place] [address] [email or web address] Endocrinology 07/20/18 Toro Miller MD [address] [facility] [address] [place] [address] [email or web address] 07/21/18 documented as of this encounter Additional Source Comments The information contained in this document represents components of the legal health record. It is not the complete legal health record.[facility]
--- OUTSIDE RECORDS SUMMARY | 2025-02-28 15:05 | XMS_ITS | Clinical Summary ---
Author Organization [facility] Address [address] [facility] [address] [place] [address] Phone Care Team Providers Care Motor Overhauler Name Role Phone Deonte Carmona Primary Care Provider + Pcp, Unknown Unavailable Unavailable Yajaira Harley MD Unavailable [phone] Toro Miller MD Unavailable Allergies Active [...] bowel obstruction 08/10/2019 Overview (08/16/2019): Hospitalized at [facility] July 2019, treated successfully with nasogastric [...] EDT) TSH 4.17 0.27 - 4.20 uIU/mL [facility] Blood 08/12/2019 5:37 AM EDT 08/12/2019 6:18 AM EDT us Danny Palacio MD LAB BLOOD BKR ORDERABLES Final R esult [address] [address] from Last 3 Months or Most Recently Relevant to Health Maintenance Insurance CARE MEDICARE REPLACEMENT [place] [id number] [place] [address] CARE MEDICARE REPLACEMENT MEDICARE REPLACEMENT [address] [place] [address] [place] [address] MEDICARE REPLACEMENT MEDICARE REPLACEMENT ST [address] [place] [address] MEDICARE REPLACEMENT MEDICARE REPLACEMENT MEDICARE REPLAC[place] [address] MEDICARE REPLACEMENT MEDICARE REPLACEMENT MEDICARE REPLACEMENT CARE MEDICARE REPLACEMENT [place] [id number] Advance Directives For more information, please contact: [phone] (9AM - 5PM [facility], Friday-Friday) Documents on File Type Date Recorded Patient Radio Interference Supervisor Anabella OCHOA 08/16/2019 11:42 AM Healthcare Proxy 08/11/2019 HCP 11/13/19 14 * Full Code (Confirmed) (Latest Code Status on File) Date Activated Date Inactivated Comments 08/11/2019 8:18 AM Question Answer Comments Code Status Confirmed With: Patient * Full Code (Presumed) Date Activated Date Inactivated Comments 08/10/2019 10:37 AM 08/11/2019 8:18 AM Care Teams Motor Overhauler Relationship Specialty Start Date End Date Deonte Carmona PA [address] [place] [address] PCP - General Physician Production Support Consultant 01/21/25 Pcp, Unknown 01/21/25 Yajaira Harley MD [address] [place] [address] [email or web address] Endocrinology 07/20/18 Toro Miller MD [address] [facility] [address] [address] [email or web address] Urology 07/21/18 Additional Source Comments The information contained in this document represents components of the legal health record. It is not the complete legal health record.[facility]
--- OUTSIDE RECORDS SUMMARY | 2025-02-28 15:05 | XMS_ITS | Encounter Summary ---
Author Organization [facility] Address [address] [place] [address] Care Team Providers Care Sweatband Cutting Machine Operator Name Role Phone Deonte Carmona Primary Care Provider [phone] Encounter Details Date Type Department Care Team (Late st Contact Info) Description 09/09/2024 Lab Requisition [facility] [address] [facility] [place] [address] Starr Mcmillan PA [address] [place], [place] [phone] Urinary tract infection, site not specified Social [...] ssp pneumoniae(A) NATALIA 09/11/2024 10:[address] [facility] Comment: This is an [...] ORD ERABLES Final Result [facility] [address] [place] [address], documented in this encounter Visit Diagnoses Diagnosis Urinary tract infection, site not specified documented in this encounter Additional Health Concerns Infection Onset Date Last Indicated Resolved Time Respiratory Rule-Out 02/22/2025 02/22/2025 025 2:25 PM EST COVID-19 Rule-Out 02/22/2025 02/22/2025 02/22/2025 2:25 PM EST documented as of this encounter Care Teams Sweatband Cutting Machine Operator Relationship Specialty Start Date End Date Deonte Carmona PA [facility] [place] [address] PCP - General Physician Wool Grader 05/01/24 documented as of this encounter
--- OUTSIDE RECORDS SUMMARY | 2025-02-28 15:05 | XMS_ITS | Encounter Summary ---
Author Organization [facility] Address [address] [facility] [address] [place] [address] Phone Care Team Providers Care Occupational Health Physiotherapist Name Role Phone Carlos Hunter MD Primary Care Provider [phone] Pcp, Unknown Primary Care Provider UnavailDeonte Fitzgerald Primary Care Provider + Pcp, Unknown Unavailable Unavailable Yajaira Harley MD Unavailable [phone] Toro Miller MD Unavailable [phone] Encounter Details Date Type Department Care Team (Late st Contact Info) Description 08/02/2019 Transcribe Orders [facility] Specimen Processing [address] [place] [address] Miladis Pulido, SLIP SHEETER [address] [facility] [address] [place], [place] [id number] [email or web address] Suspected Covid-19 Virus Infection (Primary Dx) Social [...] 4:18 PM EDT) Specimen Source NASOPHARYNGEAL SWAB (SLIP SHEETER) [facility] COVID Testing Status In-house testing being performed [facility] Other 08/02/2019 4:18 PM EDT 08/02/2019 4:33 PM EDT us Miladis Pulido SLIP SHEETER LAB GENERAL ORDERABLES Final Re sult [facility] [address] [place] [address] documented in this encounter Visit Diagnoses Diagnosis [...] documented as of this encounter Care Teams Occupational Health Physiotherapist Relationship Specialty Start Date End Date Carlos Hunter MD [address] [facility] [address] [place] [address] [email or web address] PCP - General Internal Medicine 07/02/18 12/05/21 Pcp, Unknown PCP - General 12/06/21 01/20/25 Deonte Carmona PA [address] [place] [address] PCP - General Physician Sail Finisher Hand 01/21/25 Pcp, Unknown 01/21/25 Yajaira Harley MD [address] [place] [address] Endocrinology 07/20/18 Toro Miller MD [address] [facility] [address] [place] [address] [email or web address] Urology 07/21/18 documented as of this encounter Additional Source Comments The information contained in this document represents components of the legal health record. It is not the complete legal health record.[facility]
--- OUTSIDE RECORDS SUMMARY | 2025-02-28 15:05 | XMS_ITS | Encounter Summary ---
Author Organization [facility] Address [address] [place] [address] Care Team Providers Care Inspector Barrel Name Role Phone Deonte Carmona Primary Care Provider [phone] Encounter Details Date Type Department Care Team (Late st Contact Info) Description 01/11/2025 Results Follow-Up [facility] Emergency [address] [place] [address] Clare Chahal RN Social History [...] Assessment Author Yes 01/09/2025 8:49 PM EDT Gyspy Song RN documented as of this encounter [...] 7 days no refills spoke to pt's handle turner who will roller picker the rx documented in this encounter Plan of Treatment Not on file documented as of this encounter Visit Diagnoses Not on filedocumented in this encounter Additional Health Concerns Infection Onset Date Last Indicated Resolved Time Respiratory Rule-Out 02/22/2025 02/22/2025 025 2:25 PM EST COVID-19 Rule-Out 02/22/2025 02/22/2025 02/22/2025 2:25 PM EST documented as of this encounter Care Teams Inspector Barrel Relationship Specialty Start Date End Date Deonte Carmona PA [address] [place] [phone] PCP - General Physician Fire Management Technician 05/01/24 documented as of this encounter
--- OUTSIDE RECORDS SUMMARY | 2025-02-28 15:05 | XMS_ITS | Encounter Summary ---
Author Organization [facility] Address [address] [facility] [address] [facility] [address] [place] [address] Care Team Providers Care Heating Element Builder Name Role Phone Unavailable Primary Care Provider Unavailabl e Reason for Visit * Reason Onset Date Comments returning call for appt 02/16/2025 Returning call from message left 02/16/2025 Encounter Details Date Type Department Care Team (Late st Contact Info) Description 02/16/2025 Telephone [facility] Oculoplastics Services [address] [facility], [address] [place] [address] Azul Ortega MD [address] [place] [address] returning call for appt; Returning call from message left Social History Tobacco Use Types Packs/Day Years Used Date Smoking Tobacco: Never Assessed Comments Unknown Sex and Gender Information Value Date Recorded Sex Assigned at Not on file Legal Sex Female 9:44 AM EST Gender Identity Not on file Sexual Orientation Not on file documented as of this encounter Miscellaneous Notes * Telephone Encounter - Phuong Xiong - 02/16/2025 1:46 PM EST Pt returning call from message left Pt sd best # for CB [phone] * Telephone Encounter - Meaghan Nix - 02/16/2025 12:02 PM EST Addis c/b [phone] Returning call, please c/b with kiswahili intpt Dr Ashwin Ortega [phone]: Orbitotomy/Lataeral Rectus Evaluation in Oculoplastics. Called pt, LVM to call and schedule. documented in this encounter Plan of Treatment Not on file documented as of this encounter Visit Diagnoses Not on filedocumented in this encounter
--- OUTSIDE RECORDS SUMMARY | 2025-02-28 15:05 | XMS_ITS | Clinical Summary ---
Author Organization [facility] Address [address] [facility] [address] [facility] [address] [place] [address] Care Team Providers Care Stenciling Machine Tender Name Role Phone Unavailable Primary Care Provider Unavailabl e Encounters Date Type Department Care Team Description 02/16/2025 Telephone [facility] Oculoplastics Services [address] [facility] [place] [address] Azul Ortega MD returning call for appt; Returning call from message left 02/16/2025 Telephone [facility] Oculoplastics Services [address] [facility] [place] [address] Azul Ortega MD from Last 3 Months Social History Tobacco Use Types Packs/Day Years Used Date Smoking Tobacco: Never Assessed Comments Unknown Sex and Gender Information Value Date Recorded Sex Assigned at Not on file Legal Sex Female 9:44 AM EST Gender Identity Not on file Sexual Orientation Not on file Plan of Treatment Health Maintenance Due Date Last Done Comments CT Colonography 1973 Colonoscopy 1973 Colorectal Cancer Screening 1973 FIT-DNA 1973 FIT 1973 FOBT 1973 HIV Screening 1973 Lipid Panel 1973 Sigmoidoscopy 1973 MMR Vaccines (1 of 1 - Stand ryan series) 1974 Hepatitis C Screening 09/25/1991 DTaP/Tdap/Td Vaccines (1 - Tdap) 1992 Hepatitis B Vaccines (1 of 3 - 19+ 3-dose series) 1992 Pap Smear 1994 Cervical Cancer Screening 09/25/2003 HPV/Cotest 09/25/2003 Mammogram 2013 Pneumococcal Vaccine: 50+ Ye ars (1 of 1 - PCV) 09/25/2023 Zoster Vaccines (1 of 2) 09/25/2023 Depression Screening 03/31/2024 COVID-19 Vaccine (2024-2 6 season) 2024 Influenza Vaccine (#1) 2024 HIB Vaccines Aged Out No longer eligi ble based on patient's age to complete this topic HPV Vaccines (No Doses Required) Completed Hepatitis A Vaccines Aged Out No long er eligible based on patient's age to complete this topic IPV Vaccines Aged Out No longer eligi ble based on patient's age to complete this topic Meningococcal B Vaccine Aged Out No l onger eligible based on patient's age to complete this topic Meningococcal Vaccine Aged Out No primo kourtney eligible based on patient's age to complete this topic Rotavirus Vaccines Aged Out No longer eligible based on patient's age to complete this topic Insurance ACO
== END 2025-02-28 12:45 | disposition home or self-care (01) ==
LOC: HO.HMCH 11:24
PROVIDERS: PCP Physician Assistant; Visit Provider Physician Assistant
DX: Z00.00 Encounter for general adult medical examination without abnormal findings (principal); G80.9 Cerebral palsy, unspecified; D49.6 Neoplasm of unspecified behavior of brain; E11.9 Type 2 diabetes mellitus without complications; N39.0 Urinary tract infection, site not specified; E78.2 Mixed hyperlipidemia; E03.9 Hypothyroidism, unspecified; E23.2 Diabetes insipidus; Z23 Encounter for immunization

== ENCOUNTER → 2025-02-28 11:23 | Outpatient (BNVA) | payer OTHER, SELFPAY | PROVIDERS: PCP Physician Assistant; Visit Provider Physician Assistant | DX: Z00.00 Encounter for general adult medical examination without abnormal findings (principal); G80.9 Cerebral palsy, unspecified; E03.9 Hypothyroidism, unspecified; F32.A Depression, unspecified; E23.2 Diabetes insipidus; N39.0 Urinary tract infection, site not specified; E78.2 Mixed hyperlipidemia; D64.9 Anemia, unspecified; E11.9 Type 2 diabetes mellitus without complications; Z23 Encounter for immunization | CPT/HCPCS: 83036; 90471; 90656; 99396 ==